=== PATIENT | female | born 1960 | race African-American/Black ===

== ENCOUNTER 2018-12-17 10:46 | Inpatient (IN) | payer OTHER ==
--- NOTE | 2018-12-17 11:17 | PDOC ---
History of Present Illness - General Chief Complaint: Edema Stated Complaint: EDEMA Time Seen by Provider: 12/17/18 11:17 History Source: Patient Exam Limitations: Other (poor historian, accompanied by aid who gives better history) - History of Present Illness Initial Comments: Pt is a 58 yo F, with PMH of HTN, chronic arthritis, and CVA (2017, 2018), who is presenting from imaging at [facility] with complaints of b/l LE edema x3 weeks. Pt was sent for b/l LE doppler and lab work by her Dryland Farmer today to the clinic at [facility]; her insurance was not accepted so she was sent to the ER for work-up. The pt states the LE swelling was gradual over the past 3 weeks. She has also had intermittent productive cough of yellowish sputum over the past month. The pt has no current complaints. She denies any recent travel, surgery, and estrogen use. Pt denies any fevers/chills, headache, vision changes, syncope , chest pain, palpitations, SOB, nausea/vomiting, abdominal pain, urinary symptoms, or diarrhea/constipation. Social: Pt smokes 1/2 ppd x40 years. Denies any alcohol or drug use. Pt denies any recent travel or sick contacts. Surgical: no relevant history. Family: no relevant history. 12/17/18 12:38 Past History - Travel Traveled outside of the country in the last 30 days: No Close contact w/someone who was outside of country & ill: No - Past Medical History Allergies/Adverse Reactions: Allergies Allergy/AdvReac Type Severity Reaction Status Date / Time No Known Allergies Allergy Verified 12/17/18 10:54 Home Medications: Ambulatory Orders Amlodipine Besylate 5 mg PO DAILY 12/17/18 Calcium Carbonate/Vitamin D3 [Oyster Shell 500-Vit D3 200 Tb] 1 each PO DAILY Ferrous Sulfate 325 mg PO DAILY 12/17/18 Lisinopril 20 mg PO DAILY 12/17/18 Meloxicam 15 mg PO DAILY 12/17/18 Phenytoin Sodium Extended 200 mg PO BID 12/17/18 COPD: No HTN: Yes Seizures: Yes - Suicide/Smoking/Psychosocial Hx Smoking History: Current every day smoker Number of Cigarettes Smoked Daily: 10 Information on smoking cessation initiated: No Hx Alcohol Use: No Drug/Substance Use Hx: No Review of Systems - Review of Systems Able to Perform ROS?: Yes Is the patient limited Prydeinig proficient: No Constitutional: Yes: Weight Stable. No: Chills, Diaphoresis, Fever, Loss of Appetite, Malaise, Weakness HEENTM: No: Blurred Vision, Double Vision, Nose Congestion, Throat Pain, Throat Swelling, Difficulty Swallowing Respiratory: Yes: Cough, Productive cough. No: Orthopnea, Shortness of Breath, Wheezing, Hemoptysis Cardiac (ROS): Yes: Edema (b/l LE edema). No: Chest Pain, Irregular Heart Rate , Lightheadedness, Palpitations, Syncope, Chest Tightness ABD/GI: No: Constipated, Diarrhea, Nausea, Poor Appetite, Poor Fluid Intake, Vomiting : No: Burning, Dysuria, Pain, Urgency Musculoskeletal: Yes: Muscle Pain (pain in legs b/l with swelling). No: Back Pain, Joint Pain, Muscle Weakness Integumentary: Yes: Change in Color (darkening of skin RLE with swelling). No: Bruising, Erythema, Rash Neurological: No: Headache, Numbness, Paresthesia, Weakness, Unsteady Gait, Dizziness Psychiatric: No: Sleep Pattern Change, Change in Appetite Endocrine: No: Increased Urine, Change in Weight Hematologic/Lymphatic: No: Anemia, Blood Clots, Easy Bleeding, Easy Bruising All Other Systems: Reviewed and Negative *Physical Exam - Vital Signs Last Vital Signs Temp Pulse Resp BP Pulse Ox 98.0 F 94 H 20 197/135 H 100 12/17/18 10:49 12/17/18 10:49 12/17/18 10:49 12/17/18 10:49 12/17/18 10:49 - Physical Exam Comments: HTN (197/135, pt did not take BP meds this AM), HR 94, 100% on RA, pt afebrile. Pt in NAD. Morbidly obese body habitus. Pt alert and oriented x3. canvas worker generally intact, muscular strength and sensation intact. No midline spinal tenderness, step-offs, or crepitus. Head normocephalic, atraumatic. Eyes PERRLA, EOMI. Oropharynx without erythema or exudates, no LAD b/l. No nasal congestion, hearing intact. Clear heart sounds, S1/S2, no JVD, or heart murmur. B/l LE edema R>L, with pitting edema (up to knee on the R, mid-soni on the L). Diminished lung sounds with crackles at the L base. No expiratory wheezing or accessory muscle use. No active respiratory distress. No abdominal or CVA tenderness to palpation, no rebound, no guarding. Abdomen soft, protuberant, and with normoactive bowel sounds. Hyperpigmentation on skin of RLE of feet and ankle. Skin without jaundice or rash. 12/17/18 12:13 ED Treatment Course - LABORATORY CBC & Chemistry Diagram: 12/17/18 11:43 12/17/18 11:43 Medical Decision Making - Medical Decision Making Pt was seen at bedside, also will be seen by attending Dr. Jiménez. Pt presenting from imaging at [facility] with complaints of b/l LE edema x3 weeks. Pt was sent for b /l LE doppler and lab work by her Dryland Farmer today to the clinic at [facility]; her insurance was not accepted so she was sent to the ER for work-up. The pt states the LE swelling was gradual over the past 3 weeks. She has also had intermittent productive cough of yellowish sputum over the past month. The pt has no current complaints. She denies any recent travel, surgery, and estrogen use. Pt denies any fevers/chills, headache, vision changes, syncope, chest pain , palpitations, SOB, nausea/vomiting, abdominal pain, urinary symptoms, or diarrhea/constipation. Considering CHF/new HF vs ACS vs b/l dependent edema vs DVT vs renal impairment with fluid retention. Ordered work-up including CBC, CMP, BNP, cardiac profile, ECG, chest x-ray. Will continue to reassess pt and monitor for symptomatic improvement. 12/17/18 12:26 ECG: NSR, intervals WNL (HR 95, DC 146, QRS 78, QTc 472). No TWIs or significant ST segment changes. No prior ECG for comparison. 12/17/18 12:39 CT head: IMPRESSION: Pald-ih-yfeqeokx volume loss, ventricular dilatation and probable periventricular chronic microvascular ischemic disease changes. No CT evidence of gross acute intracranial pathology is identified. Correlate clinically to determine further evaluation and follow-up. 12/17/18 15:16 Chest x-ray with no acute pathology. CBC: WBC 13 with chronic anemia CMP: BUN 40/Cr 4.9 Trop .02, BNP 6842 No prior chemistry/kidney function tests for comparison. 12/17/18 15:16 Spoke with US department as we cannot see the report of b/l LE doppler on the EMR: no evidence of DVT. 12/17/18 15:20 Paging pts PCP (ANP Janice Davis - [phone]) to discuss pts baseline labs. Appears that swelling may be due to chronic issues like renal impairment. Will need to determine baseline labs and any acute pathology present. 12/17/18 15:24 Lisinopril 10 mg not effective, will try 10 IV labetalol. Spoke with Dr. Davis, who states pt last Cr in August 2018 was 1.04 with GFR 60 ; pt has also gained ~40 lbs over the past few months. Pt refused to get labs/ echo done outpatient with cardiology. Blog sent to hospitalist team for admission. 12/17/18 16:05 ECG: HR 91, DC 148, QRS 78, QTc 482, NSR. No prior ECG for comparison. No significant ST segment/TWIs. Pt admitted to hospitalist team. BP improved systolic to 170 after labetalol. Spoke with Dr. Jordan (nephrology) -- requested US (renal) and urine creatinine. Orders placed. 12/17/18 17:00 *DC/Admit/Observation/Transfer Diagnosis at time of Disposition: Hypertensive emergency, Lower extremity edema Renal failure Qualifiers: Renal failure chronicity: unspecified chronicity Qualified Code(s): N19 - Unspecified kidney failure - Discharge Dispostion Condition at time of disposition: Stable Decision to Admit order: Yes - Referrals Referrals: Janice Davis, [facility] [Primary Care Provider] - - Patient Instructions - Post Discharge Activity Addendum entered and electronically signed by Mechelle Landin, RESIDENT 18:37: Progress Note - Progress Note Progress Note: Spoke with Dr. Lehman (cardiology) who agreed with plan to reduce BP, and provide labetolol or labetolol drip if necessary. He will see the pt in the AM or potentially tonight if he is in the hospital. Dr. Jordan saw the pt at bedside and was concerned about potential LE cellulitis on the R leg due to increased swelling/warmth. I notified admitting team to consider abx if indicated. RLE does feel more edematous than when she arrived on presentation, but pt has tenderness on both legs as indicated on prior PE.
--- NOTE | 2018-12-17 11:23 | PDOC ---
Attending Attestation - Resident Resident Name: Mechelle Landin - ED Attending Attestation I have performed the following: I have examined & evaluated the patient, The case was reviewed & discussed with the resident, I agree w/resident's findings & plan - HPI HPI: 12/17/18 12:54 58 yo F, with PMH of HTN, chronic arthritis, and CVA (2017, 2018), who is presenting from imaging at [facility] with complaints of b/l LE edema x 1 month, difficulty ambulating 2/2 pain and neuropathy. Pt was sent for b/l LE doppler and lab work by her Newspaper Writer today to the clinic at [facility]; her insurance was not accepted so she was sent to the ER for work-up. She has also had intermittent productive cough of yellowish sputum over the past month. The pt has no current complaints. She denies any recent travel, surgery, and estrogen use. Pt denies any fevers/chills, headache, vision changes , syncope, chest pain, palpitations, SOB, nausea/vomiting, abdominal pain, urinary symptoms, or diarrhea/constipation. Of note, there was a recent fall ~2 days ago, while pulling up her pants in the bathroom - lost her balance, landed on the tile floor hitting right side of head , did not want to be evaluated at that time. No LOC. No history of CHF or cardiac issues or diuretic use Poor compliance with meds, did not take AM meds as scheduled. - Physicial Exam PE: 12/17/18 12:57 Agree with the resident's HPI and PE as documented in the electronic medical record. NAD, well appearing, speech clear, oriented appropriately. PERRL, EOMI, nl conjunctiva, anicteric; neck supple, no midline tenderness in C spine.. lungs clear, RRR, no murmur. abdomen soft nontender, obese. back nontender, no midline tenderness, FROM. ASH x4, no focal neuro deficits. 4+ bilateral peripheral edema. normal color for ethnicity, WWP. +diffusely tender in BLE. - Medical Decision Making 12/17/18 11:22 See HPI for details Vital signs reviewed, hypertensive; poorly compliant with meds/regimen Prior notes reviewed, including admissions, discharges and consultations. laboratory results and imaging reviewed, basic labs and lytes wnl, notable for unchanged/stable anemia, leukocytosis - checked labs from 2014. no fever or systemic sx. doubt infectious. Cr elevated 4.9, no prior, no known prior disease; no lasix use. CXR_no acute chest pathology Cardiac panel_neg trop EKG normal sinus rhythm at 95 bpm, no interval abnormalities, narrow QRS, ST and T wave segments and morphology normal. Nonspecific T wave abnormalities in III only, no contiguous lead changes CT head neg for bleed or injury, chronic microvascular changes ED course - analgesia with tylenol. - lisinopril x1 dose; hold amlodipine due to peripheral edema - no lasix, due to profound renal insufficiency - bnp elevated, no cp or sob; likely from new renal insufficiency, no prior and pt denies known renal disease. peripheral edema likely from renal failure ordered for urine lytes/osms. - treating as HTN emergency, severely elevated BP and e/o organ damage (renal failure). IV labetalol 10mg x1, reassess. gradual decrease 25% in 24 hr. admit, peripheral edema, 2/2 HTN emergency, renal insufficiency workup 12/17/18 15:38 12/17/18 16:20 12/18/18 07:51
[2018-12-17 12:48] LABS: BASO % 1.3 % (0-2.0); EOS % 5.4 % (0-4.5); HEMOGLOBIN 9.4 GM/dL (10.7-15.3); LYMPH % 17.2 % (8-40); MCH 27.2 pg (25.7-33.7); MCHC 32.5 g/dl (32.0-36.0); MEAN CELL VOLUME 83.6 fl (80-96); MEAN PLT VOLUME 7.1 fl (7.5-11.1); MONO % 4.6 % (3.8-10.2); NEUT % 71.5 % (42.8-82.8); PLATELET COUNT 202 K/MM3 (134-434); RBC 3.47 M/mm3 (3.60-5.2); RDW 17.3 % (11.6-15.6); WHITE BLOOD COUNT 13.1 K/mm3 (4.0-10.0)
[2018-12-17] MEDS ORDERED: LISINOPRIL 10 MG TABLET (FP) PO ONE (12:51)
[2018-12-17] MEDS ORDERED: ACETAMINOPHEN 325 MG TABLET (FP) PO ONE (12:53)
[2018-12-17 12:59] LABS: INR 0.84 (0.83-1.09); PROTHROMBIN TIME (PATIENT) 9.9 SEC (9.7-13.0)
[2018-12-17] MEDS ORDERED: LISINOPRIL 5 MG TABLET (FP) ONE (13:18)
[2018-12-17] MEDS ORDERED: ACETAMINOPHEN 325 MG TABLET (FP) ONE (13:18)
[2018-12-17 13:21] LABS: ALBUMIN 1.6 g/dl (3.4-5.0); ALK PHOS 201 U/L (45-117); ANION GAP 10 MMOL/L (8-16); BILIRUBIN,TOTAL 0.1 mg/dL (0.2-1); BLOOD UREA NITROGEN 40 mg/dL (7-18); CALCIUM 7.5 mg/dL (8.5-10.1); CHLORIDE 114 mmol/L (98-107); CHOLESTEROL 197 mg/dL (50-200); CO2 19 mmol/L (21-32); CREATININE 4.9 mg/dL (0.55-1.3); GLUCOSE,RANDOM 81 mg/dL (74-106); HDL CHOLESTEROL 67 mg/dL (40-60); MAGNESIUM 1.8 mg/dL (1.8-2.4); N-TERMINAL BNP 6842.6 pg/ml (5-125); SGOT/AST 38 U/L (15-37); SGPT/ALT 18 U/L (13-61); SODIUM 143 mmol/L (136-145); TOT PROT 5.1 g/dl (6.4-8.2); TRIGLYCERIDES 202 mg/dL (0-150)
[2018-12-17 16:13] LABS: EPI CELLS 8.1 /HPF (0-5/HPF); URINE APPEARANCE CLOUDY; URINE BACTERIA 352.6 /hpf (NEGATIVE); URINE BILIRUBIN NEGATIVE (NEGATIVE); URINE CASTS 20 /lpf (0-8); URINE COLOR YELLOW; URINE GLUCOSE (UA) NEGATIVE (NEGATIVE); URINE KETONE NEGATIVE (NEGATIVE); URINE LEUK ESTERASE NEGATIVE (NEGATIVE); URINE NITRITE NEGATIVE (NEGATIVE); URINE PROTEIN 4+ (NEGATIVE); URINE UROBILINOGEN 0.2 mg/dL (0.2-1.0)
[2018-12-17] MEDS ORDERED: LABETALOL HCL 5 MG/1 ML (100MG/20 ML VIAL) IVPUSH ONE (16:17)
[2018-12-17] MEDS ORDERED: LABETALOL HCL 5 MG/1 ML (200MG/40ML VIAL) IVPB ONE (16:30)
--- NOTE | 2018-12-17 16:31 | HP ---
Admitting History and Physical - Admission Chief Complaint: LE edema, Rapid weight gain History of Present Illness: 58 year old F with h/o HTN, DVT, CVA x2 w/ subsequent seizure disorder ( maintained on Dilantin) presents from radiology department for evaluation after her health insurance was not accepted for scheduled b/l LE ultrasound. Ms. Adler reports cva in 2017 and 2018 treated at [facility] ([address] [place] [address]) and was subsequently discharged to [facility], where she resided for two years. In December 2017, pt was d/frannie from [facility] after which she went to live with her daughter in [place]. Post CVA she has significantly decreased mobility and uses a rollator and cane as assistive devices. After discharge from [place], she did not have regular medical follow up until May 2018. In Early November 2018, pt began to notice LE edema and difficulty climbing stairs to enter her first floor apartment in private home. Additional symptoms include intermittent headaches, cramping pain to LEs , forgetfulness and dark colored foul smelling urine. She denies CP/SOB/Dizziness/palpitations, dizziness or LOC. No dysuria/pelvic, back or flank pain. No fever/chills /N/V/D. No sick contacts or recent travel. Ms. Adler sustained a fall in her bathub on sunday, 12/15; where she hit her head and was unable to get up from bathtub. EMS and Fire brigade were activated and assisted patient out of bathtub. she refused to go She was referred by PCP for LE doppler studies at [facility] [place] radiology, however, due to her insurance not being accepted, she was referred to ED for evaluation. In ED: Vitals: T 98.0, HR 94, RR 20, BP 197/135, O2sat 100%. Pt had not taken BP meds and was dosed Lisinopril 10mg with no effect on lowering BP. Late afternoon, Labetalol 10mg IVP given which lowered SBP to 170s. Chest x-ray with no acute pathology. EKG: @ 17:01 (my read) VR 91bpm, BRENNAN 148ms, QRS 78, QT/QTc 392/482ms, no acute pathology. borderline LVH CBC: WBC 13 CMP: BUN 40/Cr 4.9. ED Provider spoke with pt's outpt PCP who states that in August 2018 serum Cr was 1.04 with GFR 60; pt has also gained ~40 lbs over the past few months. Trop 0.02, BNP 6842 CT head: Yivw-ax-avnbxaec volume loss, ventricular dilatation and probable periventricular chronic microvascular ischemic disease changes. No CT evidence of gross acute intracranial pathology is identified. Decision made to admit patient for further workup and management of hypertensive urgency and acute renal failure. History Source: Patient Limitations to Obtaining History: No Limitations - Past Medical History INSOLE TAPER: Yes: Peripheral Neuropathy Cardiovascular: Yes: HTN Reproductive: Yes: Postmenopausal ...: No ...: 2 ...Para: 2 Heme/Onc: Yes: Anemia - Past Surgical History Additional Past Surgical History: right carpal tunnel release tonsillectomy as a child - Smoking History Smoking history: Current every day smoker Have you smoked in the past 12 months: Yes Aproximately how many cigarettes per day: 10 (1/2 PPD x 40yrs) - Alcohol/Substance Use Hx Alcohol Use: No History of Substance Use: reports: None - Social History Usual Living Arrangement: Yes: With Child (and grandson) ADL: Support Services ([facility] 9A -2p x 7days per week) 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 History of Recent Travel: No Home Medications - Allergies Allergies/Adverse Reactions: Allergies Allergy/AdvReac Type Severity Reaction Status Date / Time No Known Allergies Allergy Verified 12/17/18 10:54 - Home Medications Home Medications: Ambulatory Orders Amlodipine Besylate 5 mg PO DAILY 12/17/18 Calcium Carbonate [Oysco-500] 500 mg PO DAILY 12/17/18 Calcium Carbonate/Vitamin D3 [Oyster Shell 500-Vit D3 200 Tb] 1 each PO DAILY Ferrous Sulfate 325 mg PO DAILY 12/17/18 Gabapentin 300 mg PO TID 12/17/18 Lisinopril 20 mg PO DAILY 12/17/18 Meloxicam 15 mg PO DAILY 12/17/18 Phenytoin Sodium Extended 200 mg PO BID 12/17/18 Family Disease History - Family Disease History Family Disease History: Other: Father ( (60+) CVA, h/p amputation), Mother ( (60+) HTN), Brother ( (23) drug overdose) Review of Systems - Review of Systems Constitutional: reports: No Symptoms Eyes: reports: Blurred Vision HENT: reports: No Symptoms Neck: reports: No Symptoms Cardiovascular: reports: Edema Respiratory: reports: No Symptoms Gastrointestinal: reports: No Symptoms Genitourinary: reports: No Symptoms Breasts: reports: No Symptoms Reported Musculoskeletal: reports: Muscle Cramps, Muscle Weakness Integumentary: reports: No Symptoms Neurological: reports: Headache, Unsteady Gait Endocrine: reports: No Symptoms Hematology/Lymphatic: reports: No Symptoms Psychiatric: reports: No Symptoms Physical Examination Vital Signs: Vital Signs Temperature 98.0 F 12/17/18 10:49 Pulse Rate 96 H 12/17/18 12:50 Respiratory Rate 20 12/17/18 12:50 Blood Pressure 198/130 H 12/17/18 12:50 O2 Sat by Pulse Oximetry (%) 98 12/17/18 12:50 Constitutional: Yes: Well Nourished, No Distress, Calm Eyes: Yes: Conjunctiva Clear, EOM Intact, PERRL HENT: Yes: Atraumatic, Normocephalic, Other (poor dentition) Neck: Yes: Supple, Trachea Midline Cardiovascular: Yes: Regular Rate and Rhythm, S1, S2 Respiratory: Yes: Regular, CTA Bilaterally Gastrointestinal: Yes: Normal Bowel Sounds, Soft, Abdomen, Obese ...Rectal Exam: Yes: Deferred Edema: Yes Edema: LLE: 3+ (pitting), RLE: 3+ (pitting) Peripheral Pulses WNL: Yes Peripheral Pulses: Left Radial: 2+, Right Radial: 2+, Left Doralis Pedis: 1+, Right Dorsalis Pedis: 1+ Integumentary: Yes: Venous Stasis Changes Neurological: Yes: Alert, Oriented, Tremors (Left UE > RUE) ...Motor Strength: WNL Psychiatric: Yes: Alert, Oriented Labs: CBC, BMP 12/17/18 11:43 12/17/18 11:43 Imaging - Results Chest X-ray: Report Reviewed (CXR 12/17/2018 Impression: No acute chest pathology.) X-ray: Report Reviewed (Impression: No acute chest pathology. Reported By: Estuardo Goff MD 12/17/18 [id number]) Cat Scan: Report Reviewed (IMPRESSION: Dwet-it-brwyhack volume loss, ventricular dilatation and probable periventricular chronic microvascular ischemic disease changes. No CT evidence of gross acute intracranial pathology is identified. Correlate clinically to determine further evaluation and follow- up. Reported By: Kat Frances MD 12/17/18 2209) Ultrasound: Report Reviewed (IMPRESSION: No evidence of deep venous thrombosis. Limited study as described above. Reported By: Everardo Lindquist MD 12/17/18 2349) Problem List - Problems (1) Prophylactic measure Assessment/Plan: heparin SC TID Bleeding precautions bowel regimen with senna and colace protonix 40mg daily Code(s): Z29.9 - ENCOUNTER FOR PROPHYLACTIC MEASURES, UNSPECIFIED (2) Body mass index (BMI) of 40.1 to 44.9 in adult Assessment/Plan: fasting lipids and A1C in the morning weight loss encouraged Code(s): Z68.41 - BODY MASS INDEX (BMI) 40.0-44.9, ADULT (3) Seizure disorder Assessment/Plan: seizure precautions dilantin 200mg BID Code(s): G40.909 - EPILEPSY, UNSP, NOT INTRACTABLE, WITHOUT STATUS EPILEPTICUS (4) Hypertensive emergency Assessment/Plan: hold norvasc due to LE edema hold Lisinopril in light of SOHAIL start labetalol 100mg BID telemetry cardiology consult Echo ordered Code(s): I16.1 - HYPERTENSIVE EMERGENCY (5) Lower extremity edema Assessment/Plan: elevate extremities Code(s): R60.0 - LOCALIZED EDEMA (6) Renal failure Assessment/Plan: place owen for intake and output renal consulted as per renal hold off on lasix and perform renal sono urine electrolytes and osmo sent to lab trend serum cr and electrolytes Code(s): N19 - UNSPECIFIED KIDNEY FAILURE Qualifiers: Renal failure chronicity: unspecified chronicity Qualified Code(s): N19 - Unspecified kidney failure (7) Cellulitis of right lower extremity Assessment/Plan: ZOSYN BID trend WBC and temp curve Code(s): L03.115 - CELLULITIS OF RIGHT LOWER LIMB (8) Anemia Assessment/Plan: may be related to CKD iron studies with AM labs trend H/H Code(s): D64.9 - ANEMIA, UNSPECIFIED Assessment/Plan Code Status: Full code Visit type - Emergency Visit Emergency Visit: Yes ED Registration Date: 12/17/18 Care time: The patient presented to the Emergency Department on the above date and was hospitalized for further evaluation of their emergent condition. - New Patient This patient is new to me today: Yes Date on this admission: 12/17/18 - Critical Care Critical Care patient: No
[2018-12-17] MEDS ORDERED: FUROSEMIDE 40 MG/4 ML INJECTABLE VIAL IVPUSH ONE (18:06)
--- NOTE | 2018-12-17 18:33 | CONSULT ---
Consult Consult Specialty:: Nephrology Reason for Consultation:: SOHAIL - History of Present Illness Chief Complaint: lower ext edema and right foot pain History of Present Illness: Pt is a 58 year old female with pmhx of htn, arthritis, CVA, and obesity who initially presented for lower ext dopplers. Her insurance was not accepted so was sent down to the ER for the studies. She says that her lower ext edema started about one month ago. She denies shortness of breath. She denies hematuria or dysuria. She denies nsaid use but her home meds includes meloxicam. She is a poor historian. She does complain of pain and erythema of her right leg. - History Source History Provided By: Patient, Medical Record - Past Medical History Cardio/Vascular: Yes: HTN Heme/Onc: Yes: Anemia Musculoskeletal: Yes: Osteoarthritis - Alcohol/Substance Use Hx Alcohol Use: No - Smoking History Smoking history: Current every day smoker Aproximately how many cigarettes per day: 10 Home Medications - Allergies Allergies/Adverse Reactions: Allergies Allergy/AdvReac Type Severity Reaction Status Date / Time No Known Allergies Allergy Verified 12/17/18 10:54 - Home Medications Home Medications: Ambulatory Orders Amlodipine Besylate 5 mg PO DAILY 12/17/18 Calcium Carbonate/Vitamin D3 [Oyster Shell 500-Vit D3 200 Tb] 1 each PO DAILY Ferrous Sulfate 325 mg PO DAILY 12/17/18 Lisinopril 20 mg PO DAILY 12/17/18 Meloxicam 15 mg PO DAILY 12/17/18 Phenytoin Sodium Extended 200 mg PO BID 12/17/18 Family Disease History - Family Disease History Family History: Denies Review of Systems - Review of Systems Constitutional: reports: No Symptoms Eyes: reports: No Symptoms HENT: reports: No Symptoms Neck: reports: No Symptoms Cardiovascular: reports: No Symptoms Respiratory: reports: No Symptoms Gastrointestinal: reports: No Symptoms Genitourinary: reports: No Symptoms Breasts: reports: No Symptoms Reported Musculoskeletal: reports: Other (right leg pain) Neurological: reports: No Symptoms Endocrine: reports: No Symptoms Hematology/Lymphatic: reports: No Symptoms Physical Exam Vital Signs: Vital Signs Temperature 98.0 F 12/17/18 10:49 Pulse Rate 92 H 12/17/18 17:13 Respiratory Rate 20 12/17/18 17:13 Blood Pressure 172/114 H 12/17/18 17:13 O2 Sat by Pulse Oximetry (%) 98 12/17/18 17:13 Constitutional: Yes: Anxious Eyes: Yes: Conjunctiva Clear HENT: Yes: Atraumatic Cardiovascular: Yes: S1, S2 Respiratory: Yes: CTA Bilaterally Gastrointestinal: Yes: Soft, Abdomen, Obese Renal/: Yes: WNL Musculoskeletal: Yes: WNL Edema: Yes Edema: LLE: 1+, RLE: 1+ Integumentary: Yes: Erythema, Other (right leg and foot erythema) Neurological: Yes: Oriented Psychiatric: Yes: Oriented, Agitated Labs: CBC, BMP 12/17/18 11:43 12/17/18 11:43 Laboratory Tests 12/17/18 12/17/18 11:43 11:43 WBC 13.1 H Hgb 9.4 L Plt Count 202 D Sodium 143 Potassium 4.0 Carbon Dioxide 19 L BUN 40 H Creatinine 4.9 H Imaging - Results Chest X-ray: Report Reviewed Assessment/Plan Current Medications Generic Name Dose Route Start Last Admin Trade Name Freq PRN Reason Stop Dose Admin Aspirin 81 mg 12/18/18 10:00 Ecotrin - PO DAILY ELIJAH Docusate Sodium 100 mg 12/17/18 22:00 Colace - PO BID ELIJAH Furosemide 40 mg 12/18/18 10:00 Lasix Injection - IVPUSH DAILY ELIJAH Heparin Sodium (Porcine) 5,000 unit 12/17/18 22:00 Heparin - SQ TID ELIJAH Labetalol HCl 100 mg 12/17/18 22:00 Normodyne - PO BID ELIJAH Pantoprazole Sodium 40 mg 12/18/18 10:00 Protonix - PO DAILY ELIJAH Phenytoin Sodium 200 mg 12/17/18 22:00 Dilantin - PO BID ELIJAH Senna 2 tab 12/17/18 22:00 Senna - PO HS ELIJAH Impression 1. SOHAIL 2. lower ext edema 3. cellulitis 4. HTN 5. arthritis Plan - check renal ultrasound - send ua and lytes - stop meloxicam - hold off lasix for now - abx for cellulitis - will order renal workup - pt is not very cooperative
[2018-12-17 18:39] LABS: URINE RBC 50 /hpf (0-4); URINE WBC 8 /hpf (0-5)
[2018-12-17] MEDS ORDERED: FUROSEMIDE 40 MG/4 ML INJECTABLE VIAL ONE (18:48)
[2018-12-17 20:20] LABS: OSMOLALITY,SERUM 308 mosm/kg (278-305)
[2018-12-17] MEDS ORDERED: LABETALOL HCL 100 MG TABLET (FP) PO ONE (21:32)
[2018-12-17] MEDS ORDERED: PIPERACILLIN/TAZOB 3.375 GM 3.375 GM in DEXTROSE 5%-WATER - 50 ML IVPB ONE (22:00)
[2018-12-17] MEDS ORDERED: PIPERACILLIN/TAZOB 3.375 GM 3.375 GM in DEXTROSE 5%-WATER - 50 ML IVPB SCH (22:00)
[2018-12-17] MEDS ORDERED: LABETALOL HCL 100 MG TABLET (FP) PO SCH (22:00)
[2018-12-17] MEDS ORDERED: LABETALOL HCL 100 MG TABLET (FP) ONE (23:14)
[2018-12-17] MEDS ORDERED: PHENYTOIN NA EXTENDED 100 MG CAPSULE (FP) ONE (23:14)
[2018-12-17] MEDS ORDERED: PIPERACILLIN/TAZOB 3.375 GM 3.375 GM/50 ML BAG IVPB ONE (23:15)
[2018-12-17] MEDS ORDERED: DOCUSATE SODIUM 100 MG CAPSULE (FP) PO ONE (23:15)
[2018-12-17] MEDS ORDERED: HEPARIN NA (PORCINE) 5,000 UNITS/ML 1ML VIAL ONE (23:15)
[2018-12-17] MEDS: DOCUSATE SODIUM 100 MG CAPSULE (FP) PO SCH (23:16)
[2018-12-17] MEDS: PHENYTOIN NA EXTENDED 100 MG CAPSULE (FP) PO SCH (23:16)
[2018-12-17] MEDS: HEPARIN NA (PORCINE) 5,000 UNITS/ML 1ML VIAL SQ SCH (23:25)
[2018-12-17] MEDS: SENNOSIDES 8.6MG TABLET (FP) PO SCH (23:27)
--- NOTE | 2018-12-18 04:37 | CON.CARD ---
Consult Consult Specialty:: cardiology Reason for Consultation:: uncontrolled HTN - History of Present Illness History of Present Illness: Pt is a 58 yr old woman with PMH of HTN, s/p CVA x 2 (2017 and 2018), morbid obesity, daily cigarette smoker, chronic arthritis, who is presenting from imaging at [facility] with complaints of b/l LE edema x 1 month, difficulty ambulating 2/2 pain and neuropathy. She has also had intermittent productive cough of yellowish sputum over the past month. The pt has no current complaints. She denies any recent travel, surgery, and estrogen use. Pt denies any fevers/chills, headache, vision changes , syncope, chest pain, palpitations, SOB, nausea/vomiting, abdominal pain, urinary symptoms, or diarrhea/constipation. s/p fall about 48 hours ago while pulling up her pants in the bathroom; pt lost her balance, landed on the tile floor, hitting right side of head, but did not want to be evaluated at that time. No LOC. No reported hx of cardiac disease (though sent by tax adjuster for labs and bilateral LE US today). Hx poor compliance with medications; did not take morning meds today. Her BP was found to be extremely high, and BUN/Cr also elevated. She was started on labetolol. 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 History of Recent Travel: No Home Medications - Allergies Allergies/Adverse Reactions: Allergies Allergy/AdvReac Type Severity Reaction Status Date / Time No Known Allergies Allergy Verified 12/17/18 10:54 - Home Medications Home Medications: Ambulatory Orders Amlodipine Besylate 5 mg PO DAILY 12/17/18 Calcium Carbonate [Oysco-500] 500 mg PO DAILY 12/17/18 Calcium Carbonate/Vitamin D3 [Oyster Shell 500-Vit D3 200 Tb] 1 each PO DAILY Ferrous Sulfate 325 mg PO DAILY 12/17/18 Gabapentin 300 mg PO TID 12/17/18 Lisinopril 20 mg PO DAILY 12/17/18 Meloxicam 15 mg PO DAILY 12/17/18 Phenytoin Sodium Extended 200 mg PO BID 12/17/18 Family Disease History - Family Disease History Family Disease History: Other: Father ( (60+) CVA, h/p amputation), Mother ( (60+) HTN), Brother ( (23) drug overdose) Vital Signs: Vital Signs Temperature 97.7 F 12/18/18 04:00 Pulse Rate 89 12/18/18 04:00 Respiratory Rate 18 12/18/18 04:00 Blood Pressure 129/94 12/18/18 04:00 O2 Sat by Pulse Oximetry (%) 98 12/18/18 04:00 - Other Data Labs, Other Data: CBC, BMP 12/17/18 11:43 12/17/18 11:43 INR, PTT INR 0.84 (0.83-1.09) 12/17/18 11:43 Troponin, BNP 12/17/18 11:43 Troponin I < 0.02 B-Natriuretic Peptide 6842.6 H Troponin, BNP 12/17/18 11:43 Troponin I < 0.02 B-Natriuretic Peptide 6842.6 H Problem List - Problems (1) Anemia Assessment/Plan: Hb also noted to be reduced in 2013; f/u workup. Code(s): D64.9 - ANEMIA, UNSPECIFIED (2) Body mass index (BMI) of 40.1 to 44.9 in adult Assessment/Plan: dietary consult while hospitalized would be on benefit. Code(s): Z68.41 - BODY MASS INDEX (BMI) 40.0-44.9, ADULT (3) Hypertensive emergency Assessment/Plan: Received PO labetolol; f/u BP, HR serially. ECHO for LVEF, wall thickness and motion; valve status. BUN/Cr markedly elevated; f/u with straight edger. F/u prior cardiac workup. Code(s): I16.1 - HYPERTENSIVE EMERGENCY (4) Renal failure Assessment/Plan: BUN/Cr 40/4.9; no prior labs to compare with. for renal US. F/u with straight edger. Code(s): N19 - UNSPECIFIED KIDNEY FAILURE Qualifiers: Renal failure chronicity: unspecified chronicity Qualified Code(s): N19 - Unspecified kidney failure (5) Elevated brain natriuretic peptide (BNP) level Code(s): R79.89 - OTHER SPECIFIED ABNORMAL FINDINGS OF BLOOD CHEMISTRY (6) [place] cardiac risk >20% in next 10 years Assessment/Plan: Will require coronary artery evaluation once BP is controlled, if not done recently (f/u prior cardiac w/u);depending on clinical course while here, may be able to be done as outpatient. Code(s): Z91.89 - OTH PERSONAL RISK FACTORS, NOT ELSEWHERE CLASSIFIED (7) Cigarette nicotine dependence Code(s): F17.210 - NICOTINE DEPENDENCE, CIGARETTES, UNCOMPLICATED
[2018-12-18] MEDS: HEPARIN NA (PORCINE) 5,000 UNITS/ML 1ML VIAL SQ SCH ×3 (05:46→21:36)
[2018-12-18] MEDS ORDERED: LABETALOL HCL 5 MG/1 ML (100MG/20 ML VIAL) IVPUSH ONE (05:55)
--- NOTE | 2018-12-18 08:28 | PN ---
Progress Note, Physician Chief Complaint: admitted for fluid retention and uncontrolled BP History of Present Illness: 24 HR EVENTS: -refuses AM labs -started on oral labetalol, BP not well controlled -Lost IV access, pt refuses to place new IV -started on Zosyn for RLE cellulitis, switched to Keflex d/t no IV access - Current Medication List Current Medications: Active Medications Aspirin (Ecotrin -) 81 mg PO DAILY [facility] Cephalexin HCl (Keflex -) 500 mg PO BID [facility] Docusate Sodium (Colace -) 100 mg PO BID [facility] Last Admin: 12/17/18 23:16 Dose: 100 mg Heparin Sodium (Porcine) (Heparin -) 5,000 unit SQ TID [facility] Last Admin: 12/18/18 05:46 Dose: Not Given Labetalol HCl (Normodyne -) 200 mg PO BID [facility] Pantoprazole Sodium (Protonix -) 40 mg PO DAILY [facility] Phenytoin Sodium (Dilantin -) 200 mg PO BID [facility] Last Admin: 12/17/18 23:16 Dose: 200 mg Senna (Senna -) 2 tab PO HS [facility] Last Admin: 12/17/18 23:27 Dose: 2 tab - Objective Vital Signs: Vital Signs Temperature 98.0 F 12/18/18 06:00 Pulse Rate 87 12/18/18 06:00 Respiratory Rate 20 12/18/18 06:00 Blood Pressure 177/120 H 12/18/18 06:00 O2 Sat by Pulse Oximetry (%) 98 12/18/18 04:00 Constitutional: Yes: No Distress, Calm Eyes: Yes: Conjunctiva Clear, EOM Intact HENT: Yes: Atraumatic, Normocephalic, Other (poor dentition) Neck: Yes: Supple, Trachea Midline Cardiovascular: Yes: Regular Rate and Rhythm Respiratory: Yes: Regular, CTA Bilaterally Gastrointestinal: Yes: WNL, Normal Bowel Sounds, Soft, Abdomen, Obese ...Rectal Exam: Yes: Deferred Genitourinary: Yes: WNL Breast(s): Yes: WNL Edema: Yes Edema: LUE: 2+, LLE: 3+, RLE: 3+ Peripheral Pulses: Left Radial: 2+, Right Radial: 2+, Left Doralis Pedis: 1+, Right Dorsalis Pedis: 1+ Integumentary: Yes: Venous Stasis Changes, Other (Melasma) Neurological: Yes: Alert, Oriented ...Motor Strength: WNL Psychiatric: Yes: Alert, Oriented Labs: CBC, BMP 12/17/18 11:43 12/17/18 11:43 INR, PTT INR 0.84 (0.83-1.09) 12/17/18 11:43 - ....Imaging Other: Report Reviewed (ECHO 12/18/2018 Impression: TEchnically difficult study with many images suboptimal in quality. LV not well visualized. LV systolic fxn grossly normal. REgional wall motion abnormalities cannot be excluded due to limited visualization. RV, RA, LA not well visualized. Trace mitral regurg.) Problem List - Problems (1) Prophylactic measure Assessment/Plan: heparin SC TID Bleeding precautions bowel regimen with senna and colace protonix 40mg daily Code(s): Z29.9 - ENCOUNTER FOR PROPHYLACTIC MEASURES, UNSPECIFIED (2) Body mass index (BMI) of 40.1 to 44.9 in adult Assessment/Plan: fasting lipids and A1C when able since pt refusing labs weight loss encouraged Code(s): Z68.41 - BODY MASS INDEX (BMI) 40.0-44.9, ADULT (3) Seizure disorder Assessment/Plan: seizure precautions dilantin 200mg BID Code(s): G40.909 - EPILEPSY, UNSP, NOT INTRACTABLE, WITHOUT STATUS EPILEPTICUS (4) Hypertensive emergency Assessment/Plan: Increase labetalol 200mg BID telemetry cardiology following, recommendations appreciated hold norvasc and lisinopril Code(s): I16.1 - HYPERTENSIVE EMERGENCY (5) Lower extremity edema Assessment/Plan: elevate extremities Keflex 500mg BID for RLE cellulitis LUE more swollen today-doppler study ordered to assess for DVT Code(s): R60.0 - LOCALIZED EDEMA (6) Renal failure Assessment/Plan: renal consulted Lasix 40mg x 1 dose today trend serum cr and electrolytes as pt allows labs to be drawn Code(s): N19 - UNSPECIFIED KIDNEY FAILURE Qualifiers: Renal failure chronicity: unspecified chronicity Qualified Code(s): N19 - Unspecified kidney failure (7) Cellulitis of right lower extremity Assessment/Plan: d/c Zosyn due to no IV access, start Keflex BID trend WBC and temp curve Code(s): L03.115 - CELLULITIS OF RIGHT LOWER LIMB (8) Anemia Assessment/Plan: may be related to CKD iron studies with AM labs trend H/H Code(s): D64.9 - ANEMIA, UNSPECIFIED (9) Cigarette nicotine dependence Assessment/Plan: pt noted to have a box of cigarettes on her bed. no smoking reinforced. Code(s): F17.210 - NICOTINE DEPENDENCE, CIGARETTES, UNCOMPLICATED Impression/Plan Impression/Plan: DISPO: pt is resistant to care and does not allow staff to perform necessary functions to improve her clinical status. Spoke with Mayo Adler who is daughter and HCP to encourage patient to be an active participant in her care. Visit type - Emergency Visit Emergency Visit: Yes ED Registration Date: 12/17/18 Care time: The patient presented to the Emergency Department on the above date and was hospitalized for further evaluation of their emergent condition. - New Patient This patient is new to me today: No - Critical Care Critical Care patient: No - Discharge Referral Referred to [facility] Med P.C.: No
[2018-12-18] MEDS: DOCUSATE SODIUM 100 MG CAPSULE (FP) PO SCH ×2 (09:58→21:11)
[2018-12-18] MEDS: ASPIRIN COATED 81 MG TABLET.EC PO SCH (09:58)
[2018-12-18] MEDS: LABETALOL HCL 200 MG TABLET (FP) PO SCH ×2 (09:58→21:12)
[2018-12-18] MEDS: CEPHALEXIN MONOHYDRATE 500 MG CAPSULE (UD) PO SCH ×2 (09:58→21:10)
[2018-12-18] MEDS: PHENYTOIN NA EXTENDED 100 MG CAPSULE (FP) PO SCH ×2 (09:58→21:10)
[2018-12-18] MEDS: PANTOPRAZOLE 40 MG TABLET (FP) PO SCH (09:58)
[2018-12-18] MEDS ORDERED: FUROSEMIDE 40 MG/4 ML INJECTABLE VIAL IVPUSH SCH (10:00)
--- NOTE | 2018-12-18 10:33 | EKG ---
Test Reason : Blood Pressure : / mmHG Vent. Rate : 091 BPM Atrial Rate : 091 BPM P-R Int : 148 ms QRS Dur : 078 ms QT Int : 392 ms P-R-T Axes : 033 012 024 degrees QTc Int : 482 ms NORMAL SINUS RHYTHM CANNOT RULE OUT ANTERIOR INFARCT , AGE UNDETERMINED ABNORMAL ECG WHEN COMPARED WITH ECG OF 17-DEC-2018 12:23, NO SIGNIFICANT CHANGE WAS FOUND Confirmed by THA PINEDA, CARRIE ([id number]) on 12/18/2018 10:33:08 AM Referred By: Confirmed By:CARRIE ALMAZAN MD
--- NOTE | 2018-12-18 10:33 | EKG ---
Test Reason : Blood Pressure : / mmHG Vent. Rate : 095 BPM Atrial Rate : 095 BPM P-R Int : 146 ms QRS Dur : 078 ms QT Int : 376 ms P-R-T Axes : 042 014 040 degrees QTc Int : 472 ms NORMAL SINUS RHYTHM NORMAL ECG NO PREVIOUS ECGS AVAILABLE Confirmed by THA PINEDA, CARRIE ([id number]) on 12/18/2018 10:33:04 AM Referred By: Confirmed By:CARRIE ALMAZAN MD
--- NOTE | 2018-12-18 10:42 | PN ---
Progress Note, Physician History of Present Illness: Pt is a 58 yr old woman with PMH of HTN, s/p CVA x 2 (2017 and 2018), morbid obesity, daily cigarette smoker, chronic arthritis, who is presenting from imaging at [facility] with complaints of b/l LE edema x 1 month, difficulty ambulating 2/2 pain and neuropathy. She has also had intermittent productive cough of yellowish sputum over the past month. The pt has no current complaints. She denies any recent travel, surgery, and estrogen use. Pt denies any fevers/chills, headache, vision changes , syncope, chest pain, palpitations, SOB, nausea/vomiting, abdominal pain, urinary symptoms, or diarrhea/constipation. s/p fall about 48 hours ago while pulling up her pants in the bathroom; pt lost her balance, landed on the tile floor, hitting right side of head, but did not want to be evaluated at that time. No LOC. No reported hx of cardiac disease (though sent by corner cutter machine operator for labs and bilateral LE US today). Hx poor compliance with medications; did not take morning meds today. Her BP was found to be extremely high, and BUN/Cr also elevated. She was started on labetolol. - Current Medication List Current Medications: Active Medications Aspirin (Ecotrin -) 81 mg PO DAILY [facility] Last Admin: 12/18/18 09:58 Dose: 81 mg Cephalexin HCl (Keflex -) 500 mg PO BID [facility] Last Admin: 12/18/18 09:58 Dose: 500 mg Docusate Sodium (Colace -) 100 mg PO BID [facility] Last Admin: 12/18/18 09:58 Dose: 100 mg Heparin Sodium (Porcine) (Heparin -) 5,000 unit SQ TID [facility] Last Admin: 12/18/18 05:46 Dose: Not Given Labetalol HCl (Normodyne -) 200 mg PO BID [facility] Last Admin: 12/18/18 09:58 Dose: 200 mg Pantoprazole Sodium (Protonix -) 40 mg PO DAILY [facility] Last Admin: 12/18/18 09:58 Dose: 40 mg Phenytoin Sodium (Dilantin -) 200 mg PO BID [facility] Last Admin: 12/18/18 09:58 Dose: 200 mg Senna (Senna -) 2 tab PO HS [facility] Last Admin: 12/17/18 23:27 Dose: 2 tab - Objective Vital Signs: Vital Signs Temperature 98.0 F 12/18/18 06:00 Pulse Rate 87 12/18/18 06:00 Respiratory Rate 20 12/18/18 06:00 Blood Pressure 177/120 H 12/18/18 06:00 O2 Sat by Pulse Oximetry (%) 98 12/18/18 04:00 Eyes: Yes: WNL, Conjunctiva Clear, EOM Intact HENT: Yes: WNL, Atraumatic, Normocephalic Neck: Yes: WNL, Supple, Trachea Midline Cardiovascular: Yes: WNL, Regular Rate and Rhythm Respiratory: Yes: WNL, Regular, CTA Bilaterally Gastrointestinal: Yes: WNL, Normal Bowel Sounds Genitourinary: Yes: WNL Musculoskeletal: Yes: WNL Extremities: Yes: WNL Edema: Yes Integumentary: Yes: WNL Neurological: Yes: WNL, Alert, Oriented ...Motor Strength: WNL Psychiatric: Yes: WNL Labs: CBC, BMP 12/17/18 11:43 12/17/18 11:43 INR, PTT INR 0.84 (0.83-1.09) 12/17/18 11:43 Assessment/Plan - Problems (1) Anemia Assessment/Plan: Hb also noted to be reduced in 2014; f/u workup. Code(s): D64.9 - ANEMIA, UNSPECIFIED (2) Body mass index (BMI) of 40.1 to 44.9 in adult Assessment/Plan: dietary consult while hospitalized would be on benefit. Code(s): Z68.41 - BODY MASS INDEX (BMI) 40.0-44.9, ADULT (3) Hypertensive emergency Assessment/Plan: Received PO labetolol; f/u BP, HR serially. ECHO for LVEF, wall thickness and motion; valve status. BUN/Cr markedly elevated; f/u with machine gun mechanic. F/u prior cardiac workup. Code(s): I16.1 - HYPERTENSIVE EMERGENCY (4) Renal failure Assessment/Plan: BUN/Cr 40/4.9; no prior labs to compare with. for renal US. F/u with machine gun mechanic. Code(s): N19 - UNSPECIFIED KIDNEY FAILURE Qualifiers: Renal failure chronicity: unspecified chronicity Qualified Code(s): N19 - Unspecified kidney failure (5) Elevated brain natriuretic peptide (BNP) level Code(s): R79.89 - OTHER SPECIFIED ABNORMAL FINDINGS OF BLOOD CHEMISTRY (6) [place] cardiac risk >20% in next 10 years Assessment/Plan: Will require coronary artery evaluation once BP is controlled, if not done recently (f/u prior cardiac w/u);depending on clinical course while here, may be able to be done as outpatient. Code(s): Z91.89 - OTH PERSONAL RISK FACTORS, NOT ELSEWHERE CLASSIFIED (7) Cigarette nicotine dependence Code(s): F17.210 - NICOTINE DEPENDENCE, CIGARETTES, UNCOMPLICATED
--- NOTE | 2018-12-18 12:13 | PN ---
Progress Note, Physician History of Present Illness: Pt seen and examined at bedside. She denies shortness of breath. Her IV fell out and she is refusing another one. She denies fevers or chills. - Current Medication List Current Medications: Active Medications Aspirin (Ecotrin -) 81 mg PO DAILY [facility] Last Admin: 12/18/18 09:58 Dose: 81 mg Cephalexin HCl (Keflex -) 500 mg PO BID [facility] Last Admin: 12/18/18 09:58 Dose: 500 mg Docusate Sodium (Colace -) 100 mg PO BID [facility] Last Admin: 12/18/18 09:58 Dose: 100 mg Heparin Sodium (Porcine) (Heparin -) 5,000 unit SQ TID [facility] Last Admin: 12/18/18 05:46 Dose: Not Given Labetalol HCl (Normodyne -) 200 mg PO BID [facility] Last Admin: 12/18/18 09:58 Dose: 200 mg Pantoprazole Sodium (Protonix -) 40 mg PO DAILY [facility] Last Admin: 12/18/18 09:58 Dose: 40 mg Phenytoin Sodium (Dilantin -) 200 mg PO BID [facility] Last Admin: 12/18/18 09:58 Dose: 200 mg Senna (Senna -) 2 tab PO HS [facility] Last Admin: 12/17/18 23:27 Dose: 2 tab - Objective Vital Signs: Vital Signs Temperature 98.7 F 12/18/18 10:00 Pulse Rate 98 H 12/18/18 10:00 Respiratory Rate 18 12/18/18 10:00 Blood Pressure 161/103 H 12/18/18 10:00 O2 Sat by Pulse Oximetry (%) 100 12/18/18 09:00 Constitutional: Yes: Anxious Eyes: Yes: Conjunctiva Clear HENT: Yes: Atraumatic Cardiovascular: Yes: S1, S2 Respiratory: Yes: CTA Bilaterally Gastrointestinal: Yes: Soft, Abdomen, Obese Genitourinary: Yes: WNL Musculoskeletal: Yes: WNL Edema: Yes Edema: LLE: 1+, RLE: 1+ Neurological: Yes: Oriented Psychiatric: Yes: Oriented, Agitated Labs: CBC, BMP 12/17/18 11:43 12/17/18 11:43 INR, PTT INR 0.84 (0.83-1.09) 12/17/18 11:43 - ....Imaging Ultrasound: Report Reviewed Problem List - Problems (1) Cellulitis of right lower extremity Code(s): L03.115 - CELLULITIS OF RIGHT LOWER LIMB (2) Renal failure Code(s): N19 - UNSPECIFIED KIDNEY FAILURE Qualifiers: Renal failure chronicity: unspecified chronicity Qualified Code(s): N19 - Unspecified kidney failure Assessment/Plan Current Medications Generic Name Dose Route Start Last Admin Trade Name Freq PRN Reason Stop Dose Admin Aspirin 81 mg 12/18/18 10:00 12/18/18 09:58 Ecotrin - PO 81 mg DAILY [facility] Administration Cephalexin HCl 500 mg 12/18/18 10:00 12/18/18 09:58 Keflex - PO 500 mg BID [facility] Administration Docusate Sodium 100 mg 12/17/18 22:00 12/18/18 09:58 Colace - PO 100 mg BID [facility] Administration Heparin Sodium (Porcine) 5,000 unit 12/17/18 22:00 12/18/18 05:46 Heparin - SQ Not Given TID [facility] Labetalol HCl 200 mg 12/18/18 09:15 12/18/18 09:58 Normodyne - PO 200 mg BID [facility] Administration Pantoprazole Sodium 40 mg 12/18/18 10:00 12/18/18 09:58 Protonix - PO 40 mg DAILY [facility] Administration Phenytoin Sodium 200 mg 12/17/18 22:00 12/18/18 09:58 Dilantin - PO 200 mg BID [facility] Administration Senna 2 tab 12/17/18 22:00 12/17/18 23:27 Senna - PO 2 tab HS [facility] Administration Impression 1. SOHAIL 2. lower ext edema 3. cellulitis 4. HTN 5. arthritis Plan - renal ultrasound reviewed - check bmp if she allows - renal workup ordered however she is refusing - abx for cellulitis - monitor bp on labetolol - cardio input appreciated - pt is not very cooperative
--- NOTE | 2018-12-18 13:43 | ECHO ---
Name: GONZALO ROBLES Exam:Adult Echocardiogram Study Date: 12/18/2018 10:00 AM Age: 58 yrs Reason For Study: volume overload Height: 65 in Weight: 250 lb BSA: 2.2 m2 MMode/2D Measurements & Calculations LAV (MOD-bp): 66.4 ml Doppler Measurements & Calculations MV E max baldemar: 90.2 cm/sec Ao V2 max: 142.5 cm/sec MV A max baldemar: 87.8 cm/sec Ao max P.1 mmHg MV E/A: 1.0 MV dec time: 0.11 sec LV V1 max P.9 mmHg TR max baldemar: 216.8 cm/sec LV V1 max: 140.7 cm/sec TR max P.9 mmHg PA V2 max: 109.9 cm/sec Med Peak E' Baldemar: 7.8 cm/sec PA max P.8 mmHg Med E/e': 11.5 Lat Peak E' Baldemar: 12.9 cm/sec Lat E/e': 7.0 Procedure The study was technically difficult with many images being suboptimal in quality. Left Ventricle The left ventricle is not well visualized. Left ventricular systolic function is grossly normal. Carolin onal wall motion abnormalities cannot be excluded due to limited visualization. Right Ventricle The right ventricle is not well visualized. Atria The left atrium is not well visualized. Right atrium not well visualized. Mitral Valve The mitral valve is not well visualized. There is no mitral valve stenosis. There is trace mitral regurgitation. Tricuspid Valve The tricuspid valve is not well visualized. There is no tricuspid stenosis. There was insufficient TR detected to calculate RV systolic pressure. Aortic Valve The aortic valve is not well visualized. No hemodynamically significant valvular aortic stenosis. No aortic regurgitation is present. Pulmonic Valve The pulmonic valve is not well visualized. Great Vessels The aortic root is not well visualized. Pericardium/Pleura There is no pericardial effusion. Interpretation Summary The study was technically difficult with many images being suboptimal in quality. The left ventricle is not well visualized. Left ventricular systolic function is grossly normal. Regional wall motion abnormalities cannot be excluded due to limited visualization. The right ventricle is not well visualized. Right atrium not well visualized. The left atrium is not well visualized. There is trace mitral regurgitation. There was insufficient TR detected to calculate RV systolic pressure. MD Jaylen Woods 12/18/2018 01:42 PM
[2018-12-18] MEDS: ACETAMINOPHEN 500 MG TABLET (FP) PO PRN ×2 (14:38→21:10)
[2018-12-18] MEDS: SENNOSIDES 8.6MG TABLET (FP) PO SCH (21:12)
[2018-12-19] MEDS: HEPARIN NA (PORCINE) 5,000 UNITS/ML 1ML VIAL SQ SCH ×3 (07:08→22:04)
--- NOTE | 2018-12-19 09:42 | PN ---
Progress Note, Physician Chief Complaint: Pt A&Ox3; denies chest pain or dyspnea;. History of Present Illness: Pt is a 58 yr old black woman with PMH of HTN, s/p CVA x 2 (2017 and 2018), morbid obesity, daily cigarette smoker, chronic arthritis, who is presenting from imaging at [facility] with complaints of b/l LE edema x 1 month, difficulty ambulating 2/2 pain and neuropathy. She has also had intermittent productive cough of yellowish sputum over the past month. The pt has no current complaints. She denies any recent travel, surgery, and estrogen use. Pt denies any fevers/chills, headache, vision changes , syncope, chest pain, palpitations, SOB, nausea/vomiting, abdominal pain, urinary symptoms, or diarrhea/constipation. s/p fall about 48 hours ago while pulling up her pants in the bathroom; pt lost her balance, landed on the tile floor, hitting right side of head, but did not want to be evaluated at that time. No LOC. No reported hx of cardiac disease (though sent by supervisor steel division for labs and bilateral LE US today). Hx poor compliance with medications; did not take morning meds today. Her BP was found to be extremely high, and BUN/Cr also elevated. She was started on labetolol. - Current Medication List Current Medications: Active Medications Acetaminophen (Tylenol -) 1,000 mg PO Q8H PRN PRN Reason: PAIN LEVEL 4 - 6 Last Admin: 12/18/18 21:10 Dose: 1,000 mg Aspirin (Ecotrin -) 81 mg PO DAILY [facility] Last Admin: 12/18/18 09:58 Dose: 81 mg Cephalexin HCl (Keflex -) 500 mg PO BID [facility] Last Admin: 12/18/18 21:10 Dose: 500 mg Docusate Sodium (Colace -) 100 mg PO BID [facility] Last Admin: 12/18/18 21:11 Dose: 100 mg Heparin Sodium (Porcine) (Heparin -) 5,000 unit SQ TID [facility] Last Admin: 12/19/18 07:08 Dose: Not Given Labetalol HCl (Normodyne -) 200 mg PO BID [facility] Last Admin: 12/18/18 21:12 Dose: 200 mg Pantoprazole Sodium (Protonix -) 40 mg PO DAILY [facility] Last Admin: 12/18/18 09:58 Dose: 40 mg Phenytoin Sodium (Dilantin -) 200 mg PO BID [facility] Last Admin: 12/18/18 21:10 Dose: 200 mg Senna (Senna -) 2 tab PO HS [facility] Last Admin: 12/18/18 21:12 Dose: 2 tab - Objective Vital Signs: Vital Signs Temperature 97.9 F 12/19/18 06:00 Pulse Rate 91 H 12/19/18 06:00 Respiratory Rate 20 12/19/18 06:00 Blood Pressure 137/96 12/19/18 06:00 O2 Sat by Pulse Oximetry (%) 96 12/18/18 21:00 Constitutional: Yes: Anxious, Obese Eyes: Yes: WNL HENT: Yes: WNL Labs: CBC, BMP 12/17/18 11:43 12/17/18 11:43 INR, PTT INR 0.84 (0.83-1.09) 12/17/18 11:43 Problem List - Problems (1) Anemia Assessment/Plan: Hb also noted to be reduced in 2014; f/u workup. Code(s): D64.9 - ANEMIA, UNSPECIFIED (2) Body mass index (BMI) of 40.1 to 44.9 in adult Assessment/Plan: dietary consult while hospitalized would be on benefit. Code(s): Z68.41 - BODY MASS INDEX (BMI) 40.0-44.9, ADULT (3) Hypertensive emergency Assessment/Plan: Now on labetolol 200 mg bid; increase as needed, and consider 2nd antihypertensive agent, e.g. amlodipine or hydralazine. ECHO :limited study; groswsly normal LVEF; regional wall motion could not be assessed. BUN/Cr remainsmarkedly elevated; f/u with home therapy clinician. F/u prior cardiac workup; pt is reluctant to undergo any further cardiac studies at this time, saying she has had no troubles with her heart. Code(s): I16.1 - HYPERTENSIVE EMERGENCY (4) Renal failure Code(s): N19 - UNSPECIFIED KIDNEY FAILURE Qualifiers: Renal failure chronicity: unspecified chronicity Qualified Code(s): N19 - Unspecified kidney failure (5) Elevated brain natriuretic peptide (BNP) level Code(s): R79.89 - OTHER SPECIFIED ABNORMAL FINDINGS OF BLOOD CHEMISTRY (6) [place] cardiac risk >20% in next 10 years Assessment/Plan: Will require coronary artery evaluation once BP is controlled, if not done recently (f/u prior cardiac w/u);depending on clinical course while here, may be able to be done as outpatient. Code(s): Z91.89 - OTH PERSONAL RISK FACTORS, NOT ELSEWHERE CLASSIFIED (7) Cigarette nicotine dependence Code(s): F17.210 - NICOTINE DEPENDENCE, CIGARETTES, UNCOMPLICATED
--- NOTE | 2018-12-19 10:35 | PN ---
Physical Exam: SUBJECTIVE: Patient seen and examined at the bedside. in no acute distress. refusing further blood draws at this time, as she is a difficult stick. encouraged her to allow us to re-draw blood, she will re consider. OBJECTIVE: Vital Signs Period Temp Pulse Resp BP Sys/Jones Pulse Ox Last 24 Hr 97.3 F-98.8 F 80-92 20-22 134-155/85-108 96 GENERAL: The patient is awake, alert, and fully oriented, in no acute distress. HEAD: Normal with no signs of trauma. EYES: PERRL, extraocular movements intact, sclera anicteric, conjunctiva clear. No ptosis. ENT: Ears normal, nares patent, oropharynx clear without exudates, moist mucous membranes. NECK: Trachea midline, full range of motion, supple. LUNGS: Breath sounds equal, clear to auscultation bilaterally, no wheezes HEART: Regular rate and rhythm ABDOMEN: obese abdomen EXTREMITIES lower ext non pitting edema, negative for dvt. NEUROLOGICAL: Normal speech, gait not observed. PSYCH: Normal mood, normal affect Active Medications Generic Name Dose Route Start Last Admin Trade Name Freq PRN Reason Stop Dose Admin Acetaminophen 1,000 mg 12/18/18 14:26 12/18/18 21:10 Tylenol - PO 1,000 mg Q8H PRN Administration PAIN LEVEL 4 - 6 Aspirin 81 mg 12/18/18 10:00 12/18/18 09:58 Ecotrin - PO 81 mg DAILY [facility] Administration Cephalexin HCl 500 mg 12/18/18 10:00 12/18/18 21:10 Keflex - PO 500 mg BID [facility] Administration Docusate Sodium 100 mg 12/17/18 22:00 12/18/18 21:11 Colace - PO 100 mg BID [facility] Administration Heparin Sodium (Porcine) 5,000 unit 12/17/18 22:00 12/19/18 07:08 Heparin - SQ Not Given TID ELIJAH Labetalol HCl 200 mg 12/18/18 09:15 12/18/18 21:12 Normodyne - PO 200 mg BID [facility] Administration Pantoprazole Sodium 40 mg 12/18/18 10:00 12/18/18 09:58 Protonix - PO 40 mg DAILY [facility] Administration Phenytoin Sodium 200 mg 12/17/18 22:00 12/18/18 21:10 Dilantin - PO 200 mg BID [facility] Administration Senna 2 tab 12/17/18 22:00 12/18/18 21:12 Senna - PO 2 tab HS [facility] Administration ASSESSMENT/PLAN: Patient is a 58 year old female with a past medical history of morbid obesity, hypertension, anemia, current daily smoker, DVT, CVA x2 w/ subsequent seizure disorder (maintained on Dilantin) presents from radiology department for evaluation after her health insurance was not accepted for scheduled b/l LE ultrasound. Ms. Adler sustained a fall in her bathub on Sunday, 12/15; where she hit her head and was unable to get up from bathtub. EMS and Fire were activated and assisted patient out of bathtub. She was referred by PCP for LE doppler studies at [facility] radiology, however, due to her insurance not being accepted, she was referred to ED for evaluation. Vascular: lower ext edema. Cellulitis of right lower ext. On Keflex 500mg BID for RLE cellulitis. discontinue Zosyn due to no IV access. Negative for DVT Morbid obesity: fasting lipids and hmga1c with a.m. labs but currently refusing labs Neuro: Seizure disorder: on dilantin 200mg bid. Card: Hypertensive urgency: on Labetalol 200mg bid. monitor on tele. cardiology following. holding norvasc and lisonopril Renal: Renal failure. renal consulted and following. trend serum creat. and electrolytes Heme: Anemia. likely due to chronic renal disease. iron studies with labs. trend h/h prophylaxis: heparin sc tid bowel regimen with colace and senna protonix 40mg daily Visit type - Emergency Visit Emergency Visit: Yes ED Registration Date: 12/17/18 Care time: The patient presented to the Emergency Department on the above date and was hospitalized for further evaluation of their emergent condition. - New Patient This patient is new to me today: Yes Date on this admission: 12/19/18 - Critical Care Critical Care patient: No - Discharge Referral Referred to [facility] Med P.C.: No
[2018-12-19] MEDS: PHENYTOIN NA EXTENDED 100 MG CAPSULE (FP) PO SCH ×2 (11:12→22:00)
[2018-12-19] MEDS: DOCUSATE SODIUM 100 MG CAPSULE (FP) PO SCH ×2 (11:12→22:00)
[2018-12-19] MEDS: ASPIRIN COATED 81 MG TABLET.EC PO SCH (11:12)
[2018-12-19] MEDS: LABETALOL HCL 200 MG TABLET (FP) PO SCH ×2 (11:12→22:00)
[2018-12-19] MEDS: PANTOPRAZOLE 40 MG TABLET (FP) PO SCH (11:12)
[2018-12-19] MEDS: CEPHALEXIN MONOHYDRATE 500 MG CAPSULE (UD) PO SCH ×2 (11:12→22:04)
--- NOTE | 2018-12-19 13:49 | PN ---
Progress Note, Physician History of Present Illness: Pt seen and examined at bedside. She denies shortness of breath. She feels leg erythema is improving. - Current Medication List Current Medications: Active Medications Acetaminophen (Tylenol -) 1,000 mg PO Q8H PRN PRN Reason: PAIN LEVEL 4 - 6 Last Admin: 12/18/18 21:10 Dose: 1,000 mg Aspirin (Ecotrin -) 81 mg PO DAILY [facility] Last Admin: 12/19/18 11:12 Dose: 81 mg Cephalexin HCl (Keflex -) 500 mg PO BID [facility] Last Admin: 12/19/18 11:12 Dose: 500 mg Docusate Sodium (Colace -) 100 mg PO BID [facility] Last Admin: 12/19/18 11:12 Dose: 100 mg Heparin Sodium (Porcine) (Heparin -) 5,000 unit SQ TID [facility] Last Admin: 12/19/18 07:08 Dose: Not Given Labetalol HCl (Normodyne -) 200 mg PO BID [facility] Last Admin: 12/19/18 11:12 Dose: 200 mg Pantoprazole Sodium (Protonix -) 40 mg PO DAILY [facility] Last Admin: 12/19/18 11:12 Dose: 40 mg Phenytoin Sodium (Dilantin -) 200 mg PO BID [facility] Last Admin: 12/19/18 11:12 Dose: 200 mg Senna (Senna -) 2 tab PO HS [facility] Last Admin: 12/18/18 21:12 Dose: 2 tab - Objective Vital Signs: Vital Signs Temperature 97.9 F 12/19/18 09:00 Pulse Rate 91 H 12/19/18 09:00 Respiratory Rate 20 12/19/18 09:00 Blood Pressure 148/92 12/19/18 09:00 O2 Sat by Pulse Oximetry (%) 96 12/19/18 09:00 Constitutional: Yes: Calm, Anxious Eyes: Yes: Conjunctiva Clear HENT: Yes: Atraumatic Neck: Yes: Supple Cardiovascular: Yes: S1, S2 Respiratory: Yes: CTA Bilaterally Gastrointestinal: Yes: Soft, Abdomen, Obese Genitourinary: Yes: WNL Musculoskeletal: Yes: WNL Edema: No Neurological: Yes: Oriented Psychiatric: Yes: Oriented Labs: CBC, BMP 12/17/18 11:43 12/17/18 11:43 INR, PTT INR 0.84 (0.83-1.09) 12/17/18 11:43 Problem List - Problems (1) Cellulitis of right lower extremity Code(s): L03.115 - CELLULITIS OF RIGHT LOWER LIMB (2) Renal failure Code(s): N19 - UNSPECIFIED KIDNEY FAILURE Qualifiers: Renal failure chronicity: unspecified chronicity Qualified Code(s): N19 - Unspecified kidney failure Assessment/Plan Current Medications Generic Name Dose Route Start Last Admin Trade Name Freq PRN Reason Stop Dose Admin Acetaminophen 1,000 mg 12/18/18 14:26 12/18/18 21:10 Tylenol - PO 1,000 mg Q8H PRN Administration PAIN LEVEL 4 - 6 Aspirin 81 mg 12/18/18 10:00 12/19/18 11:12 Ecotrin - PO 81 mg DAILY [facility] Administration Cephalexin HCl 500 mg 12/18/18 10:00 12/19/18 11:12 Keflex - PO 500 mg BID [facility] Administration Docusate Sodium 100 mg 12/17/18 22:00 12/19/18 11:12 Colace - PO 100 mg BID [facility] Administration Heparin Sodium (Porcine) 5,000 unit 12/17/18 22:00 12/19/18 07:08 Heparin - SQ Not Given TID EL[facility]AH Labetalol HCl 200 mg 12/18/18 09:15 12/19/18 11:12 Normodyne - PO 200 mg BID [facility] Administration Pantoprazole Sodium 40 mg 12/18/18 10:00 12/19/18 11:12 Protonix - PO 40 mg DAILY [facility] Administration Phenytoin Sodium 200 mg 12/17/18 22:00 12/19/18 11:12 Dilantin - PO 200 mg BID [facility] Administration Senna 2 tab 12/17/18 22:00 12/18/18 21:12 Senna - PO 2 tab HS [facility]AH Administration Impression 1. SOHAIL 2. lower ext edema 3. cellulitis 4. HTN 5. arthritis Plan - send renal workup if she agrees, ordered 2 days ago - check bmp to evaluate renal function - bp is improving - cardio follow up - would like to review renal function before ordering diuretics, this was explained to pt
[2018-12-19] MEDS: SENNOSIDES 8.6MG TABLET (FP) PO SCH (22:00)
[2018-12-20] MEDS: HEPARIN NA (PORCINE) 5,000 UNITS/ML 1ML VIAL SQ SCH ×3 (07:15→22:16)
[2018-12-20] MEDS: PHENYTOIN NA EXTENDED 100 MG CAPSULE (FP) PO SCH ×2 (09:41→22:15)
[2018-12-20] MEDS: ASPIRIN COATED 81 MG TABLET.EC PO SCH (09:42)
[2018-12-20] MEDS: DOCUSATE SODIUM 100 MG CAPSULE (FP) PO SCH ×2 (09:42→22:16)
[2018-12-20] MEDS: LABETALOL HCL 200 MG TABLET (FP) PO SCH ×2 (09:42→22:16)
[2018-12-20] MEDS: CEPHALEXIN MONOHYDRATE 500 MG CAPSULE (UD) PO SCH ×2 (09:42→22:16)
[2018-12-20] MEDS: PANTOPRAZOLE 40 MG TABLET (FP) PO SCH (09:42)
[2018-12-20 12:02] LABS: HEMATOCRIT 26.1 % (32.4-45.2); HEMOGLOBIN 8.5 GM/dL (10.7-15.3); MCH 27.2 pg (25.7-33.7); MCHC 32.6 g/dl (32.0-36.0); MEAN CELL VOLUME 83.4 fl (80-96); MEAN PLT VOLUME 6.9 fl (7.5-11.1); PLATELET COUNT 288 K/MM3 (134-434); RBC 3.13 M/mm3 (3.60-5.2); RDW 17.3 % (11.6-15.6); WHITE BLOOD COUNT 8.3 K/mm3 (4.0-10.0)
[2018-12-20 12:17] LABS: INR 0.89 (0.83-1.09); PROTHROMBIN TIME (PATIENT) 10.5 SEC (9.7-13.0)
--- NOTE | 2018-12-20 12:23 | PN ---
Progress Note, Physician History of Present Illness: Pt is a 58 yr old woman with PMH of HTN, s/p CVA x 2 (2017 and 2018), morbid obesity, daily cigarette smoker, chronic arthritis, who is presenting from imaging at [facility] with complaints of b/l LE edema x 1 month, difficulty ambulating 2/2 pain and neuropathy. She has also had intermittent productive cough of yellowish sputum over the past month. The pt has no current complaints. She denies any recent travel, surgery, and estrogen use. Pt denies any fevers/chills, headache, vision changes , syncope, chest pain, palpitations, SOB, nausea/vomiting, abdominal pain, urinary symptoms, or diarrhea/constipation. s/p fall about 48 hours ago while pulling up her pants in the bathroom; pt lost her balance, landed on the tile floor, hitting right side of head, but did not want to be evaluated at that time. No LOC. No reported hx of cardiac disease (though sent by counseling program leader for labs and bilateral LE US today). Hx poor compliance with medications; did not take morning meds today. Her BP was found to be extremely high, and BUN/Cr also elevated. She was started on labetolol. - Current Medication List Current Medications: Active Medications Acetaminophen (Tylenol -) 1,000 mg PO Q8H PRN PRN Reason: PAIN LEVEL 4 - 6 Last Admin: 12/18/18 21:10 Dose: 1,000 mg Aspirin (Ecotrin -) 81 mg PO DAILY [facility] Last Admin: 12/20/18 09:42 Dose: 81 mg Cephalexin HCl (Keflex -) 500 mg PO BID [facility] Last Admin: 12/20/18 09:42 Dose: 500 mg Docusate Sodium (Colace -) 100 mg PO BID [facility] Last Admin: 12/20/18 09:42 Dose: 100 mg Heparin Sodium (Porcine) (Heparin -) 5,000 unit SQ TID [facility] Last Admin: 12/20/18 07:15 Dose: Not Given Labetalol HCl (Normodyne -) 200 mg PO BID [facility] Last Admin: 12/20/18 09:42 Dose: 200 mg Pantoprazole Sodium (Protonix -) 40 mg PO DAILY [facility] Last Admin: 12/20/18 09:42 Dose: 40 mg Phenytoin Sodium (Dilantin -) 200 mg PO BID [facility] Last Admin: 12/20/18 09:41 Dose: 200 mg Senna (Senna -) 2 tab PO HS [facility] Last Admin: 12/19/18 22:00 Dose: 2 tab - Objective Vital Signs: Vital Signs Temperature 98 F 12/20/18 09:00 Pulse Rate 82 12/20/18 09:00 Respiratory Rate 20 12/20/18 09:00 Blood Pressure 148/98 12/20/18 09:00 O2 Sat by Pulse Oximetry (%) 97 12/19/18 21:00 Eyes: Yes: WNL, Conjunctiva Clear, EOM Intact HENT: Yes: WNL, Atraumatic, Normocephalic Neck: Yes: WNL, Supple, Trachea Midline Cardiovascular: Yes: WNL, Regular Rate and Rhythm Respiratory: Yes: WNL, Regular, CTA Bilaterally Gastrointestinal: Yes: WNL, Normal Bowel Sounds Genitourinary: Yes: WNL Musculoskeletal: Yes: WNL Extremities: Yes: WNL Edema: No Integumentary: Yes: WNL Neurological: Yes: WNL, Alert, Oriented ...Motor Strength: WNL Psychiatric: Yes: WNL Labs: CBC, BMP 12/20/18 11:30 INR, PTT INR 0.89 (0.83-1.09) 12/20/18 11:30 Assessment/Plan - Problems (1) Anemia Assessment/Plan: Hb also noted to be reduced in 2013; f/u workup. Code(s): D64.9 - ANEMIA, UNSPECIFIED (2) Body mass index (BMI) of 40.1 to 44.9 in adult Assessment/Plan: dietary consult while hospitalized would be on benefit. Code(s): Z68.41 - BODY MASS INDEX (BMI) 40.0-44.9, ADULT (3) Hypertensive emergency Assessment/Plan: Now on labetolol 200 mg bid; increase as needed, and consider 2nd antihypertensive agent, e.g. amlodipine or hydralazine. ECHO :limited study; groswsly normal LVEF; regional wall motion could not be assessed. BUN/Cr remainsmarkedly elevated; f/u with assembler body. F/u prior cardiac workup; pt is reluctant to undergo any further cardiac studies at this time, saying she has had no troubles with her heart. Code(s): I16.1 - HYPERTENSIVE EMERGENCY (4) Renal failure Code(s): N19 - UNSPECIFIED KIDNEY FAILURE Qualifiers: Renal failure chronicity: unspecified chronicity Qualified Code(s): N19 - Unspecified kidney failure (5) Elevated brain natriuretic peptide (BNP) level Code(s): R79.89 - OTHER SPECIFIED ABNORMAL FINDINGS OF BLOOD CHEMISTRY (6) [place] cardiac risk >20% in next 10 years Assessment/Plan: Will require coronary artery evaluation once BP is controlled, if not done recently (f/u prior cardiac w/u);depending on clinical course while here, may be able to be done as outpatient. Code(s): Z91.89 - OTH PERSONAL RISK FACTORS, NOT ELSEWHERE CLASSIFIED (7) Cigarette nicotine dependence Code(s): F17.210 - NICOTINE DEPENDENCE, CIGARETTES, UNCOMPLICATED
[2018-12-20 12:33] LABS: ANION GAP 11 MMOL/L (8-16); BLOOD UREA NITROGEN 45 mg/dL (7-18); CALCIUM 7.3 mg/dL (8.5-10.1); CHLORIDE 112 mmol/L (98-107); CO2 21 mmol/L (21-32); CREATININE 5.4 mg/dL (0.55-1.3); GLUCOSE,RANDOM 96 mg/dL (74-106); POTASSIUM 3.8 mmol/L (3.5-5.1); SODIUM 143 mmol/L (136-145)
--- NOTE | 2018-12-20 15:09 | PN ---
Progress Note, Physician History of Present Illness: Pt seen and examined at bedside. She denies shortness of breath. She is awake and alert. She is not very cooperative. - Current Medication List Current Medications: Active Medications Acetaminophen (Tylenol -) 1,000 mg PO Q8H PRN PRN Reason: PAIN LEVEL 4 - 6 Last Admin: 12/18/18 21:10 Dose: 1,000 mg Aspirin (Ecotrin -) 81 mg PO DAILY [facility] Last Admin: 12/20/18 09:42 Dose: 81 mg Cephalexin HCl (Keflex -) 500 mg PO BID [facility] Last Admin: 12/20/18 09:42 Dose: 500 mg Docusate Sodium (Colace -) 100 mg PO BID [facility] Last Admin: 12/20/18 09:42 Dose: 100 mg Heparin Sodium (Porcine) (Heparin -) 5,000 unit SQ TID [facility] Last Admin: 12/20/18 14:34 Dose: Not Given Labetalol HCl (Normodyne -) 200 mg PO BID [facility] Last Admin: 12/20/18 09:42 Dose: 200 mg Pantoprazole Sodium (Protonix -) 40 mg PO DAILY [facility] Last Admin: 12/20/18 09:42 Dose: 40 mg Phenytoin Sodium (Dilantin -) 200 mg PO BID [facility] Last Admin: 12/20/18 09:41 Dose: 200 mg Senna (Senna -) 2 tab PO HS [facility] Last Admin: 12/19/18 22:00 Dose: 2 tab - Objective Vital Signs: Vital Signs Temperature 98 F 12/20/18 09:00 Pulse Rate 82 12/20/18 09:00 Respiratory Rate 20 12/20/18 09:00 Blood Pressure 148/98 12/20/18 09:00 O2 Sat by Pulse Oximetry (%) 97 12/20/18 09:00 Constitutional: Yes: No Distress Eyes: Yes: Conjunctiva Clear HENT: Yes: Atraumatic Neck: Yes: Supple Cardiovascular: Yes: S1, S2 Respiratory: Yes: CTA Bilaterally Gastrointestinal: Yes: Soft, Abdomen, Obese Genitourinary: Yes: WNL Edema: Yes Edema: LLE: 2+, RLE: 2+ Neurological: Yes: Oriented Psychiatric: Yes: Oriented Labs: CBC, BMP 12/20/18 11:30 12/20/18 11:30 INR, PTT INR 0.89 (0.83-1.09) 12/20/18 11:30 Problem List - Problems (1) Cellulitis of right lower extremity Code(s): L03.115 - CELLULITIS OF RIGHT LOWER LIMB (2) Renal failure Code(s): N19 - UNSPECIFIED KIDNEY FAILURE Qualifiers: Renal failure chronicity: unspecified chronicity Qualified Code(s): N19 - Unspecified kidney failure Assessment/Plan Current Medications Generic Name Dose Route Start Last Admin Trade Name Freq PRN Reason Stop Dose Admin Acetaminophen 1,000 mg 12/18/18 14:26 12/18/18 21:10 Tylenol - PO 1,000 mg Q8H PRN Administration PAIN LEVEL 4 - 6 Aspirin 81 mg 12/18/18 10:00 12/20/18 09:42 Ecotrin - PO 81 mg DAILY [facility]AH Administration Cephalexin HCl 500 mg 12/18/18 10:00 12/20/18 09:42 Keflex - PO 500 mg BID [facility] Administration Docusate Sodium 100 mg 12/17/18 22:00 12/20/18 09:42 Colace - PO 100 mg BID [facility]AH Administration Heparin Sodium (Porcine) 5,000 unit 12/17/18 22:00 12/20/18 14:34 Heparin - SQ Not Given TID ELIJAH Labetalol HCl 200 mg 12/18/18 09:15 12/20/18 09:42 Normodyne - PO 200 mg BID [facility] Administration Pantoprazole Sodium 40 mg 12/18/18 10:00 12/20/18 09:42 Protonix - PO 40 mg DAILY [facility] Administration Phenytoin Sodium 200 mg 12/17/18 22:00 12/20/18 09:41 Dilantin - PO 200 mg BID [facility] Administration Senna 2 tab 12/17/18 22:00 12/19/18 22:00 Senna - PO 2 tab HS [facility]IJAH Administration Impression 1. SOHAIL 2. lower ext edema 3. cellulitis 4. HTN 5. arthritis Plan - renal function is worse - serologies for renal workup are not drawn - pt is not cooperative at all - explained degree of renal failure to her - discussed kidney biopsy with her and discussed possibility of dialysis with worsening renal failure
[2018-12-20] MEDS: ACETAMINOPHEN 500 MG TABLET (FP) PO PRN (18:22)
--- NOTE | 2018-12-20 22:14 | PN ---
Physical Exam: SUBJECTIVE: Patient seen and examined at the bedside. in no acute distress. feels well. OBJECTIVE: Vital Signs Period Temp Pulse Resp BP Sys/Jones Pulse Ox Last 24 Hr 97.7 F-98.5 F 80-87 18-20 126-153/71-101 97 GENERAL: The patient is awake, alert, and fully oriented, in no acute distress. HEAD: Normal with no signs of trauma. EYES: PERRL, extraocular movements intact, sclera anicteric, conjunctiva clear. No ptosis. ENT: Ears normal, nares patent, oropharynx clear without exudates, moist mucous membranes. NECK: Trachea midline, full range of motion, supple. LUNGS: Breath sounds equal, clear to auscultation bilaterally, no wheezes HEART: Regular rate and rhythm ABDOMEN: obese abdomen EXTREMITIES lower ext non pitting edema, negative for dvt. NEUROLOGICAL: Normal speech, gait not observed. PSYCH: Normal mood, normal affect Laboratory Results - last 24 hr 12/19/18 12/20/18 12/20/18 16:00 11:30 11:30 WBC 8.3 RBC 3.13 L Hgb 8.5 L Hct 26.1 L MCV 83.4 MCH 27.2 MCHC 32.6 RDW 17.3 H Plt Count 288 D MPV 6.9 L PT with INR INR Sodium 143 Potassium 3.8 Chloride 112 H Carbon Dioxide 21 Anion Gap 11 BUN 45 H Creatinine 5.4 H Creat Clearance w eGFR 8.08 Random Glucose 96 Lactic Acid Calcium 7.3 L Ammonia Protein/Creatinin Ratio 11.020 Blood Type Antibody Screen 12/20/18 12/20/18 12/20/18 11:30 11:30 11:30 WBC RBC Hgb Hct MCV MCH MCHC RDW Plt Count MPV PT with INR 10.50 INR 0.89 Sodium Potassium Chloride Carbon Dioxide Anion Gap BUN Creatinine Creat Clearance w eGFR Random Glucose Lactic Acid 1.4 Calcium Ammonia 19.00 Protein/Creatinin Ratio Blood Type Antibody Screen 12/20/18 11:30 WBC RBC Hgb Hct MCV MCH MCHC RDW Plt Count MPV PT with INR INR Sodium Potassium Chloride Carbon Dioxide Anion Gap BUN Creatinine Creat Clearance w eGFR Random Glucose Lactic Acid Calcium Ammonia Protein/Creatinin Ratio Blood Type A POSITIVE Antibody Screen Negative Active Medications Generic Name Dose Route Start Last Admin Trade Name Freq PRN Reason Stop Dose Admin Acetaminophen 1,000 mg 12/18/18 14:26 12/20/18 18:22 Tylenol - PO 1,000 mg Q8H PRN Administration PAIN LEVEL 4 - 6 Aspirin 81 mg 12/18/18 10:00 12/20/18 09:42 Ecotrin - PO 81 mg DAILY ELIJAH Administration Atorvastatin Calcium 40 mg 12/20/18 22:00 Lipitor - PO HS ELIJAH Cephalexin HCl 500 mg 12/18/18 10:00 12/20/18 09:42 Keflex - PO 500 mg BID ELIJAH Administration Docusate Sodium 100 mg 12/17/18 22:00 12/20/18 09:42 Colace - PO 100 mg BID ELIJAH Administration Heparin Sodium (Porcine) 5,000 unit 12/17/18 22:00 12/20/18 14:34 Heparin - SQ Not Given TID ELIJAH Labetalol HCl 200 mg 12/18/18 09:15 12/20/18 09:42 Normodyne - PO 200 mg BID ELIJAH Administration Pantoprazole Sodium 40 mg 12/18/18 10:00 12/20/18 09:42 Protonix - PO 40 mg DAILY ELIJAH Administration Phenytoin Sodium 200 mg 12/17/18 22:00 12/20/18 09:41 Dilantin - PO 200 mg BID ELIJAH Administration Senna 2 tab 12/17/18 22:00 12/19/18 22:00 Senna - PO 2 tab HS ELIJAH Administration ASSESSMENT/PLAN: Patient is a 58 year old female with a past medical history of morbid obesity, hypertension, anemia, current daily smoker, DVT, CVA x2 w/ subsequent seizure disorder (maintained on Dilantin) presents from radiology department for evaluation after her health insurance was not accepted for scheduled b/l LE ultrasound. Ms. Adler sustained a fall in her bathub on Sunday, 12/15; where she hit her head and was unable to get up from bathtub. EMS and Fire were activated and assisted patient out of bathtub. She was referred by PCP for LE doppler studies at [facility] radiology, however, due to her insurance not being accepted, she was referred to ED for evaluation. Vascular: lower ext edema. Cellulitis of right lower ext. On Keflex 500mg BID for RLE cellulitis. discontinue Zosyn due to no IV access. Negative for DVT Morbid obesity: started on lipitor for elevated lipid panel. hmga1c 4.7 dietary consulted Neuro: Seizure disorder: on dilantin 200mg bid. Card: Hypertension: on Labetalol 200mg bid. monitor on tele. cardiology following. holding norvasc and lisonopril Renal: Renal failure. renal consulted and following. worsening of renal function per renal, patient may need dialysis kidney biopsy recommended Heme: Anemia. likely due to chronic renal disease. iron studies with labs. trend h/h prophylaxis: heparin sc tid bowel regimen with colace and senna protonix 40mg daily Visit type - Emergency Visit Emergency Visit: Yes ED Registration Date: 12/17/18 Care time: The patient presented to the Emergency Department on the above date and was hospitalized for further evaluation of their emergent condition. - New Patient This patient is new to me today: No - Critical Care Critical Care patient: No - Discharge Referral Referred to [facility] No
[2018-12-20] MEDS: ATORVASTATIN CA 40 MG TABLET (FP) PO SCH (22:15)
[2018-12-20] MEDS: SENNOSIDES 8.6MG TABLET (FP) PO SCH (22:16)
[2018-12-21] MEDS: HEPARIN NA (PORCINE) 5,000 UNITS/ML 1ML VIAL SQ SCH ×3 (06:45→21:26)
[2018-12-21 07:32] LABS: BASO % 1.8 % (0-2.0); EOS % 8.9 % (0-4.5); HEMATOCRIT 26.1 % (32.4-45.2); HEMOGLOBIN 8.6 GM/dL (10.7-15.3); LYMPH % 24.2 % (8-40); MCH 27.8 pg (25.7-33.7); MEAN CELL VOLUME 84.1 fl (80-96); MONO % 4.4 % (3.8-10.2); NEUT % 60.7 % (42.8-82.8); PLATELET COUNT 335 K/MM3 (134-434); RBC 3.11 M/mm3 (3.60-5.2); WHITE BLOOD COUNT 7.7 K/mm3 (4.0-10.0)
[2018-12-21 07:59] LABS: ALBUMIN 1.8 g/dl (3.4-5.0); ALK PHOS 191 U/L (45-117); ANION GAP 11 MMOL/L (8-16); BILIRUBIN,TOTAL 0.3 mg/dL (0.2-1); BLOOD UREA NITROGEN 46 mg/dL (7-18); CALCIUM 7.3 mg/dL (8.5-10.1); CHLORIDE 110 mmol/L (98-107); CO2 20 mmol/L (21-32); CREATININE 5.3 mg/dL (0.55-1.3); GLUCOSE,RANDOM 78 mg/dL (74-106); MAGNESIUM 1.8 mg/dL (1.8-2.4); POTASSIUM 3.8 mmol/L (3.5-5.1); SGOT/AST 36 U/L (15-37); SGPT/ALT 22 U/L (13-61); SODIUM 141 mmol/L (136-145); TOT PROT 5.1 g/dl (6.4-8.2)
--- NOTE | 2018-12-21 08:58 | PN ---
Progress Note, Physician History of Present Illness: Pt is a 58 yr old woman with PMH of HTN, s/p CVA x 2 (2017 and 2018), morbid obesity, daily cigarette smoker, chronic arthritis, who is presenting from imaging at [facility] with complaints of b/l LE edema x 1 month, difficulty ambulating 2/2 pain and neuropathy. She has also had intermittent productive cough of yellowish sputum over the past month. The pt has no current complaints. She denies any recent travel, surgery, and estrogen use. Pt denies any fevers/chills, headache, vision changes , syncope, chest pain, palpitations, SOB, nausea/vomiting, abdominal pain, urinary symptoms, or diarrhea/constipation. s/p fall about 48 hours ago while pulling up her pants in the bathroom; pt lost her balance, landed on the tile floor, hitting right side of head, but did not want to be evaluated at that time. No LOC. No reported hx of cardiac disease (though sent by forensic psychiatrist for labs and bilateral LE US today). Hx poor compliance with medications; did not take morning meds today. Her BP was found to be extremely high, and BUN/Cr also elevated. She was started on labetolol. - Current Medication List Current Medications: Active Medications Acetaminophen (Tylenol -) 1,000 mg PO Q8H PRN PRN Reason: PAIN LEVEL 4 - 6 Last Admin: 12/20/18 18:22 Dose: 1,000 mg Aspirin (Ecotrin -) 81 mg PO DAILY [facility] Last Admin: 12/20/18 09:42 Dose: 81 mg Atorvastatin Calcium (Lipitor -) 40 mg PO HS [facility] Last Admin: 12/20/18 22:15 Dose: 40 mg Cephalexin HCl (Keflex -) 500 mg PO BID [facility] Last Admin: 12/20/18 22:16 Dose: 500 mg Docusate Sodium (Colace -) 100 mg PO BID [facility] Last Admin: 12/20/18 22:16 Dose: 100 mg Heparin Sodium (Porcine) (Heparin -) 5,000 unit SQ TID [facility] Last Admin: 12/21/18 06:45 Dose: Not Given Labetalol HCl (Normodyne -) 200 mg PO BID [facility] Last Admin: 12/20/18 22:16 Dose: 200 mg Pantoprazole Sodium (Protonix -) 40 mg PO DAILY [facility] Last Admin: 12/20/18 09:42 Dose: 40 mg Phenytoin Sodium (Dilantin -) 200 mg PO BID ELIJAH Last Admin: 12/20/18 22:15 Dose: 200 mg Senna (Senna -) 2 tab PO HS [facility] Last Admin: 12/20/18 22:16 Dose: 2 tab - Objective Vital Signs: Vital Signs Temperature 97.5 F L 12/21/18 02:00 Pulse Rate 84 12/21/18 06:00 Respiratory Rate 20 12/21/18 06:00 Blood Pressure 143/98 12/21/18 06:00 O2 Sat by Pulse Oximetry (%) 97 12/20/18 21:00 Eyes: Yes: WNL, Conjunctiva Clear, EOM Intact HENT: Yes: WNL, Atraumatic, Normocephalic Neck: Yes: WNL, Supple, Trachea Midline Cardiovascular: Yes: WNL, Regular Rate and Rhythm Respiratory: Yes: WNL, Regular, CTA Bilaterally Gastrointestinal: Yes: WNL, Normal Bowel Sounds Genitourinary: Yes: WNL Musculoskeletal: Yes: WNL Extremities: Yes: WNL Edema: Yes Integumentary: Yes: WNL Neurological: Yes: WNL, Alert, Oriented ...Motor Strength: WNL Psychiatric: Yes: WNL Labs: CBC, BMP 12/21/18 05:30 12/21/18 05:30 INR, PTT INR 0.89 (0.83-1.09) 12/20/18 11:30 Assessment/Plan - Problems (1) Anemia Assessment/Plan: Hb also noted to be reduced in 2014; f/u workup. Code(s): D64.9 - ANEMIA, UNSPECIFIED (2) Body mass index (BMI) of 40.1 to 44.9 in adult Assessment/Plan: dietary consult while hospitalized would be on benefit. Code(s): Z68.41 - BODY MASS INDEX (BMI) 40.0-44.9, ADULT (3) Hypertensive emergency Assessment/Plan: Now on labetolol 200 mg bid; increase as needed, and consider 2nd antihypertensive agent, e.g. amlodipine or hydralazine. ECHO :limited study; groswsly normal LVEF; regional wall motion could not be assessed. BUN/Cr remainsmarkedly elevated; f/u with manager strategy. F/u prior cardiac workup; pt is reluctant to undergo any further cardiac studies at this time, saying she has had no troubles with her heart. Code(s): I16.1 - HYPERTENSIVE EMERGENCY (4) Renal failure Code(s): N19 - UNSPECIFIED KIDNEY FAILURE Qualifiers: Renal failure chronicity: unspecified chronicity Qualified Code(s): N19 - Unspecified kidney failure (5) Elevated brain natriuretic peptide (BNP) level Code(s): R79.89 - OTHER SPECIFIED ABNORMAL FINDINGS OF BLOOD CHEMISTRY (6) [place] cardiac risk >20% in next 10 years Assessment/Plan: Will require coronary artery evaluation once BP is controlled, if not done recently (f/u prior cardiac w/u);depending on clinical course while here, may be able to be done as outpatient. Code(s): Z91.89 - OTH PERSONAL RISK FACTORS, NOT ELSEWHERE CLASSIFIED (7) Cigarette nicotine dependence Code(s): F17.210 - NICOTINE DEPENDENCE, CIGARETTES, UNCOMPLICATED
[2018-12-21] MEDS: PHENYTOIN NA EXTENDED 100 MG CAPSULE (FP) PO SCH ×2 (09:41→21:15)
[2018-12-21] MEDS: DOCUSATE SODIUM 100 MG CAPSULE (FP) PO SCH ×2 (09:41→21:24)
[2018-12-21] MEDS: ASPIRIN COATED 81 MG TABLET.EC PO SCH (09:41)
[2018-12-21] MEDS: LABETALOL HCL 200 MG TABLET (FP) PO SCH ×2 (09:41→21:26)
[2018-12-21] MEDS: PANTOPRAZOLE 40 MG TABLET (FP) PO SCH (09:41)
[2018-12-21] MEDS: CEPHALEXIN MONOHYDRATE 500 MG CAPSULE (UD) PO SCH ×2 (09:41→21:24)
--- NOTE | 2018-12-21 10:03 | PN ---
Physical Exam: SUBJECTIVE: Patient seen and examined at the bedside. 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 HEAD: Normal with no signs of trauma. EYES: PERRL, extraocular movements intact, sclera anicteric, conjunctiva clear. No ptosis. ENT: Ears normal, nares patent, oropharynx clear without exudates, moist mucous membranes. NECK: Trachea midline, full range of motion, supple. LUNGS: Breath sounds equal, clear to auscultation bilaterally, no wheezes HEART: Regular rate and rhythm ABDOMEN: obese abdomen EXTREMITIES lower ext non pitting edema, negative for dvt. NEUROLOGICAL: Normal speech, gait not observed. PSYCH: Normal mood, normal affect Laboratory Results - last 24 hr 12/20/18 12/20/18 12/20/18 11:30 11:30 11:30 WBC 8.3 RBC 3.13 L Hgb 8.5 L Hct 26.1 L MCV 83.4 MCH 27.2 MCHC 32.6 RDW 17.3 H Plt Count 288 D MPV 6.9 L Absolute Neuts (auto) Neutrophils % Lymphocytes % Monocytes % Eosinophils % Basophils % Nucleated RBC % PT with INR 10.50 INR 0.89 Sodium 143 Potassium 3.8 Chloride 112 H Carbon Dioxide 21 Anion Gap 11 BUN 45 H Creatinine 5.4 H Creat Clearance w eGFR 8.08 Random Glucose 96 Lactic Acid Calcium 7.3 L Magnesium Total Bilirubin AST ALT Alkaline Phosphatase Ammonia Total Protein Albumin Blood Type Antibody Screen 12/20/18 12/20/18 12/20/18 11:30 11:30 11:30 WBC RBC Hgb Hct MCV MCH MCHC RDW Plt Count MPV Absolute Neuts (auto) Neutrophils % Lymphocytes % Monocytes % Eosinophils % Basophils % Nucleated RBC % PT with INR INR Sodium Potassium Chloride Carbon Dioxide Anion Gap BUN Creatinine Creat Clearance w eGFR Random Glucose Lactic Acid 1.4 Calcium Magnesium Total Bilirubin AST ALT Alkaline Phosphatase Ammonia 19.00 Total Protein Albumin Blood Type A POSITIVE Antibody Screen Negative 12/21/18 12/21/18 05:30 05:30 WBC 7.7 RBC 3.11 L Hgb 8.6 L Hct 26.1 L MCV 84.1 MCH 27.8 MCHC 33.0 RDW 18.0 H Plt Count 335 MPV 7.0 L Absolute Neuts (auto) 4.7 Neutrophils % 60.7 Lymphocytes % 24.2 D Monocytes % 4.4 Eosinophils % 8.9 H Basophils % 1.8 Nucleated RBC % 0 PT with INR INR Sodium 141 Potassium 3.8 Chloride 110 H Carbon Dioxide 20 L Anion Gap 11 BUN 46 H Creatinine 5.3 H Creat Clearance w eGFR 8.25 Random Glucose 78 Lactic Acid Calcium 7.3 L Magnesium 1.8 Total Bilirubin 0.3 AST 36 ALT 22 Alkaline Phosphatase 191 H Ammonia Total Protein 5.1 L Albumin 1.8 L Blood Type Antibody Screen Active Medications Generic Name Dose Route Start Last Admin Trade Name Freq PRN Reason Stop Dose Admin Acetaminophen 1,000 mg 12/18/18 14:26 12/20/18 18:22 Tylenol - PO 1,000 mg Q8H PRN Administration PAIN LEVEL 4 - 6 Aspirin 81 mg 12/18/18 10:00 12/21/18 09:41 Ecotrin - PO 81 mg DAILY ELIJAH Administration Atorvastatin Calcium 40 mg 12/20/18 22:00 12/20/18 22:15 Lipitor - PO 40 mg HS ELIJAH Administration Cephalexin HCl 500 mg 12/18/18 10:00 12/21/18 09:41 Keflex - PO 500 mg BID ELIJAH Administration Docusate Sodium 100 mg 12/17/18 22:00 12/21/18 09:41 Colace - PO 100 mg BID ELIJAH Administration Heparin Sodium (Porcine) 5,000 unit 12/17/18 22:00 12/21/18 06:45 Heparin - SQ Not Given TID ELIJAH Labetalol HCl 200 mg 12/18/18 09:15 12/21/18 09:41 Normodyne - PO 200 mg BID ELIJAH Administration Pantoprazole Sodium 40 mg 12/18/18 10:00 12/21/18 09:41 Protonix - PO 40 mg DAILY ELIJAH Administration Phenytoin Sodium 200 mg 12/17/18 22:00 12/21/18 09:41 Dilantin - PO 200 mg BID ELIJAH Administration Senna 2 tab 12/17/18 22:00 12/20/18 22:16 Senna - PO 2 tab HS ELIJAH Administration ASSESSMENT/PLAN: Patient is a 58 year old female with a past medical history of morbid obesity, hypertension, anemia, current daily smoker, DVT, CVA x2 w/ subsequent seizure disorder (maintained on Dilantin) presents from radiology department for evaluation after her health insurance was not accepted for scheduled b/l LE ultrasound. Patient also with recent fall at home. Ms. Adler sustained a fall in her bathub on Sunday, 12/15; where she hit her head and was unable to get up from bathtub. Workup done here shows patient is in renal failure and has been evaluated by renal. During hospital stay, patient has refused an IV and attempts to draw blood work have been difficult as she often refuses. Spoke to patient and her daughter and made patient aware of importance of daily blood work since she is in renal failure any may require dialysis. Vascular: lower ext edema. Cellulitis of right lower ext. On Keflex 500mg BID for RLE cellulitis. she is refusing IV placement currently and was initially on zosyn. Negative for DVT of bilateral lower extremities. Morbid obesity: started on lipitor for elevated lipid panel. hmga1c 4.7 dietary consulted for morbid obesity Neuro: Seizure disorder: on dilantin 200mg bid. Card: Hypertension: on Labetalol 200mg bid. may need further uptitration if bp uncontrolled. monitor on tele. cardiology following. notes reviewed. patient may require coronary artery evaluation once BP is better controlled holding norvasc and lisonopril for renal failure Renal: Renal failure. renal consulted and following. worsening of renal function with a creat. 5.3, potassium is normal. per renal, patient may need dialysis kidney biopsy recommended Heme: Anemia. likely due to chronic renal disease. iron studies with labs. trend h/h prophylaxis: heparin sc tid bowel regimen with colace and senna protonix 40mg daily Visit type - Emergency Visit Emergency Visit: Yes ED Registration Date: 12/17/18 Care time: The patient presented to the Emergency Department on the above date and was hospitalized for further evaluation of their emergent condition. - New Patient This patient is new to me today: No - Critical Care Critical Care patient: No - Discharge Referral Referred to [facility] No
--- NOTE | 2018-12-21 15:48 | PN ---
Progress Note, Physician History of Present Illness: Pt seen and examined at bedside. She is awake and alert. She denies shortness of breath. She denies dysuria. - Current Medication List Current Medications: Active Medications Acetaminophen (Tylenol -) 1,000 mg PO Q8H PRN PRN Reason: PAIN LEVEL 4 - 6 Last Admin: 12/20/18 18:22 Dose: 1,000 mg Aspirin (Ecotrin -) 81 mg PO DAILY [facility] Last Admin: 12/21/18 09:41 Dose: 81 mg Atorvastatin Calcium (Lipitor -) 40 mg PO HS [facility] Last Admin: 12/20/18 22:15 Dose: 40 mg Cephalexin HCl (Keflex -) 500 mg PO BID [facility] Last Admin: 12/21/18 09:41 Dose: 500 mg Docusate Sodium (Colace -) 100 mg PO BID [facility] Last Admin: 12/21/18 09:41 Dose: 100 mg Heparin Sodium (Porcine) (Heparin -) 5,000 unit SQ TID [facility] Last Admin: 12/21/18 06:45 Dose: Not Given Labetalol HCl (Normodyne -) 200 mg PO BID [facility] Last Admin: 12/21/18 09:41 Dose: 200 mg Pantoprazole Sodium (Protonix -) 40 mg PO DAILY [facility] Last Admin: 12/21/18 09:41 Dose: 40 mg Phenytoin Sodium (Dilantin -) 200 mg PO BID [facility] Last Admin: 12/21/18 09:41 Dose: 200 mg Senna (Senna -) 2 tab PO [facility] Last Admin: 12/20/18 22:16 Dose: 2 tab - Objective Vital Signs: Vital Signs Temperature 98 F 12/21/18 09:39 Pulse Rate 79 12/21/18 09:39 Respiratory Rate 20 12/21/18 09:39 Blood Pressure 154/101 H 12/21/18 09:39 O2 Sat by Pulse Oximetry (%) 95 12/21/18 09:00 Constitutional: Yes: Calm Eyes: Yes: Conjunctiva Clear HENT: Yes: Atraumatic Neck: Yes: Supple Cardiovascular: Yes: S1, S2 Respiratory: Yes: CTA Bilaterally Gastrointestinal: Yes: Soft, Abdomen, Obese Genitourinary: Yes: WNL Musculoskeletal: Yes: WNL Edema: Yes Edema: LLE: 1+, RLE: 1+ Neurological: Yes: Oriented Psychiatric: Yes: Oriented Labs: CBC, BMP 12/21/18 05:30 12/21/18 05:30 INR, PTT INR 0.89 (0.83-1.09) 12/20/18 11:30 Problem List - Problems (1) Cellulitis of right lower extremity Code(s): L03.115 - CELLULITIS OF RIGHT LOWER LIMB (2) Renal failure Code(s): N19 - UNSPECIFIED KIDNEY FAILURE Qualifiers: Renal failure chronicity: unspecified chronicity Qualified Code(s): N19 - Unspecified kidney failure Assessment/Plan Current Medications Generic Name Dose Route Start Last Admin Trade Name Freq PRN Reason Stop Dose Admin Acetaminophen 1,000 mg 12/18/18 14:26 12/20/18 18:22 Tylenol - PO 1,000 mg Q8H PRN Administration PAIN LEVEL 4 - 6 Aspirin 81 mg 12/18/18 10:00 12/21/18 09:41 Ecotrin - PO 81 mg DAILY ELIJAH Administration Atorvastatin Calcium 40 mg 12/20/18 22:00 12/20/18 22:15 Lipitor - PO 40 mg HS ELIJAH Administration Cephalexin HCl 500 mg 12/18/18 10:00 12/21/18 09:41 Keflex - PO 500 mg BID ELIJAH Administration Docusate Sodium 100 mg 12/17/18 22:00 12/21/18 09:41 Colace - PO 100 mg BID ELIJAH Administration Heparin Sodium (Porcine) 5,000 unit 12/17/18 22:00 12/21/18 06:45 Heparin - SQ Not Given TID ELIJAH Labetalol HCl 200 mg 12/18/18 09:15 12/21/18 09:41 Normodyne - PO 200 mg BID ELIJAH Administration Pantoprazole Sodium 40 mg 12/18/18 10:00 12/21/18 09:41 Protonix - PO 40 mg DAILY ELIJAH Administration Phenytoin Sodium 200 mg 12/17/18 22:00 12/21/18 09:41 Dilantin - PO 200 mg BID ELIJAH Administration Senna 2 tab 12/17/18 22:00 12/20/18 22:16 Senna - PO 2 tab HS ELIJAH Administration Laboratory Tests 12/17/18 12/19/18 16:00 16:00 Urine Protein 4+ H Urine Blood 3+ H Protein/Creatinin Ratio 11.020 Impression 1. SOHAIL 2. lower ext edema 3. cellulitis 4. HTN 5. arthritis 6. 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
[2018-12-21] MEDS: ACETAMINOPHEN 500 MG TABLET (FP) PO PRN (18:06)
[2018-12-21] MEDS: ATORVASTATIN CA 40 MG TABLET (FP) PO SCH (21:24)
[2018-12-21] MEDS: SENNOSIDES 8.6MG TABLET (FP) PO SCH (21:25)
--- NOTE | 2018-12-22 09:30 | PN ---
Progress Note, Physician History of Present Illness: Pt is a 58 yr old woman with PMH of HTN, s/p CVA x 2 (2017 and 2018), morbid obesity, daily cigarette smoker, chronic arthritis, who is presenting from imaging at [facility] with complaints of b/l LE edema x 1 month, difficulty ambulating 2/2 pain and neuropathy. She has also had intermittent productive cough of yellowish sputum over the past month. The pt has no current complaints. She denies any recent travel, surgery, and estrogen use. Pt denies any fevers/chills, headache, vision changes , syncope, chest pain, palpitations, SOB, nausea/vomiting, abdominal pain, urinary symptoms, or diarrhea/constipation. s/p fall about 48 hours ago while pulling up her pants in the bathroom; pt lost her balance, landed on the tile floor, hitting right side of head, but did not want to be evaluated at that time. No LOC. No reported hx of cardiac disease (though sent by shuttle operator for labs and bilateral LE US today). Hx poor compliance with medications; did not take morning meds today. Her BP was found to be extremely high, and BUN/Cr also elevated. She was started on labetolol. - Current Medication List Current Medications: Active Medications Acetaminophen (Tylenol -) 1,000 mg PO Q8H PRN PRN Reason: PAIN LEVEL 4 - 6 Last Admin: 12/21/18 18:06 Dose: 1,000 mg Aspirin (Ecotrin -) 81 mg PO DAILY [facility] Last Admin: 12/21/18 09:41 Dose: 81 mg Atorvastatin Calcium (Lipitor -) 40 mg PO HS [facility] Last Admin: 12/21/18 21:24 Dose: 40 mg Cephalexin HCl (Keflex -) 500 mg PO BID [facility] Last Admin: 12/21/18 21:24 Dose: 500 mg Docusate Sodium (Colace -) 100 mg PO BID [facility] Last Admin: 12/21/18 21:24 Dose: 100 mg Heparin Sodium (Porcine) (Heparin -) 5,000 unit SQ TID [facility] Last Admin: 12/21/18 21:26 Dose: Not Given Labetalol HCl (Normodyne -) 200 mg PO BID [facility] Last Admin: 12/21/18 21:26 Dose: 200 mg Pantoprazole Sodium (Protonix -) 40 mg PO DAILY [facility] Last Admin: 12/21/18 09:41 Dose: 40 mg Phenytoin Sodium (Dilantin -) 200 mg PO BID [facility] Last Admin: 12/21/18 21:15 Dose: 200 mg Senna (Senna -) 2 tab PO HS [facility] Last Admin: 12/21/18 21:25 Dose: 2 tab - Objective Vital Signs: Vital Signs Temperature 97.8 F 12/22/18 05:00 Pulse Rate 81 12/22/18 05:00 Respiratory Rate 18 12/22/18 08:24 Blood Pressure 142/99 12/22/18 05:00 O2 Sat by Pulse Oximetry (%) 96 12/22/18 08:24 Eyes: Yes: WNL, Conjunctiva Clear, EOM Intact HENT: Yes: WNL, Atraumatic, Normocephalic Neck: Yes: WNL, Supple, Trachea Midline Cardiovascular: Yes: WNL, Regular Rate and Rhythm Respiratory: Yes: WNL, Regular, CTA Bilaterally Gastrointestinal: Yes: WNL, Normal Bowel Sounds Genitourinary: Yes: WNL Musculoskeletal: Yes: WNL Extremities: Yes: WNL Edema: Yes Integumentary: Yes: WNL Neurological: Yes: WNL, Alert, Oriented ...Motor Strength: WNL Psychiatric: Yes: WNL Labs: CBC, BMP 12/21/18 05:30 12/21/18 05:30 INR, PTT INR 0.89 (0.83-1.09) 12/20/18 11:30 Assessment/Plan - Problems (1) Anemia Assessment/Plan: Hb also noted to be reduced in 2014; f/u workup. Code(s): D64.9 - ANEMIA, UNSPECIFIED (2) Body mass index (BMI) of 40.1 to 44.9 in adult Assessment/Plan: dietary consult while hospitalized would be on benefit. Code(s): Z68.41 - BODY MASS INDEX (BMI) 40.0-44.9, ADULT (3) Hypertensive emergency Assessment/Plan: Now on labetolol 200 mg bid; increase as needed, and consider 2nd antihypertensive agent, e.g. amlodipine or hydralazine. ECHO :limited study; groswsly normal LVEF; regional wall motion could not be assessed. BUN/Cr remainsmarkedly elevated; f/u with vice president network. F/u prior cardiac workup; pt is reluctant to undergo any further cardiac studies at this time, saying she has had no troubles with her heart. Code(s): I16.1 - HYPERTENSIVE EMERGENCY (4) Renal failure Code(s): N19 - UNSPECIFIED KIDNEY FAILURE Qualifiers: Renal failure chronicity: unspecified chronicity Qualified Code(s): N19 - Unspecified kidney failure (5) Elevated brain natriuretic peptide (BNP) level Code(s): R79.89 - OTHER SPECIFIED ABNORMAL FINDINGS OF BLOOD CHEMISTRY (6) [place] cardiac risk >20% in next 10 years Assessment/Plan: Will require coronary artery evaluation once BP is controlled, if not done recently (f/u prior cardiac w/u);depending on clinical course while here, may be able to be done as outpatient. Code(s): Z91.89 - OTH PERSONAL RISK FACTORS, NOT ELSEWHERE CLASSIFIED (7) Cigarette nicotine dependence Code(s): F17.210 - NICOTINE DEPENDENCE, CIGARETTES, UNCOMPLICATED
--- NOTE | 2018-12-22 10:24 | PN ---
Physical Exam: SUBJECTIVE: Patient seen and examined at the bedside. agrees to having her blood drawn. OBJECTIVE: more cooperative today. she is aware that she needs close monitoring of her renal function. per cardiology, can d/c tele monitoring. Patient is a 58 year old female with a past medical history of morbid obesity, hypertension, anemia, current daily smoker, DVT, CVA x2 w/ subsequent seizure disorder (maintained on Dilantin) presents from radiology department for evaluation after her health insurance was not accepted for scheduled b/l LE ultrasound. Patient also with recent fall at home. She was found to be in hypertensive urgency and acute renal failure on admission. Vital Signs Period Temp Pulse Resp BP Sys/Jones Pulse Ox Last 24 Hr 97.5 F-97.8 F 81-104 18-20 112-153/69-99 96-96 GENERAL: The patient is awake, alert, and fully oriented, in no acute distress. HEAD: Normal with no signs of trauma. EYES: PERRL, extraocular movements intact, sclera anicteric, conjunctiva clear. No ptosis. ENT: Ears normal, nares patent, oropharynx clear without exudates, moist mucous membranes. NECK: Trachea midline, full range of motion, supple. LUNGS: Breath sounds equal, clear to auscultation bilaterally, no wheezes HEART: Regular rate and rhythm ABDOMEN: obese abdomen EXTREMITIES lower ext non pitting edema, negative for dvt. NEUROLOGICAL: Normal speech, gait not observed. PSYCH: Normal mood, normal affect Active Medications Generic Name Dose Route Start Last Admin Trade Name Freq PRN Reason Stop Dose Admin Acetaminophen 1,000 mg 12/18/18 14:26 12/21/18 18:06 Tylenol - PO 1,000 mg Q8H PRN Administration PAIN LEVEL 4 - 6 Aspirin 81 mg 12/18/18 10:00 12/21/18 09:41 Ecotrin - PO 81 mg DAILY ELIJAH Administration Atorvastatin Calcium 40 mg 12/20/18 22:00 12/21/18 21:24 Lipitor - PO 40 mg HS ELIJAH Administration Cephalexin HCl 500 mg 12/18/18 10:00 12/21/18 21:24 Keflex - PO 500 mg BID ELIJAH Administration Docusate Sodium 100 mg 12/17/18 22:00 12/21/18 21:24 Colace - PO 100 mg BID ELIJAH Administration Heparin Sodium (Porcine) 5,000 unit 12/17/18 22:00 12/21/18 21:26 Heparin - SQ Not Given TID ELIJAH Labetalol HCl 200 mg 12/18/18 09:15 12/21/18 21:26 Normodyne - PO 200 mg BID ELIJAH Administration Pantoprazole Sodium 40 mg 12/18/18 10:00 12/21/18 09:41 Protonix - PO 40 mg DAILY ELIJAH Administration Phenytoin Sodium 200 mg 12/17/18 22:00 12/21/18 21:15 Dilantin - PO 200 mg BID ELIJAH Administration Senna 2 tab 12/17/18 22:00 12/21/18 21:25 Senna - PO 2 tab HS ELIJAH Administration ASSESSMENT/PLAN: Patient is a 58 year old female with a past medical history of morbid obesity, hypertension, anemia, current daily smoker, DVT, CVA x2 w/ subsequent seizure disorder (maintained on Dilantin) presents from radiology department for evaluation after her health insurance was not accepted for scheduled b/l LE ultrasound. Patient also with recent fall at home. She was found to be in hypertensive urgency and acute renal failure on admission. Card: Hypertension urgency. improved. on Labetalol 200mg bid. may need further uptitration if bp remains uncontrolled. monitor on tele. cardiology following. notes reviewed. patient may require coronary artery evaluation once BP is better controlled holding norvasc and lisonopril for renal failure. on beta blockers. quality assurance monitor final shows some PVCs Renal: Renal failure. renal consulted and following. worsening of renal function with a creat. 5.3, potassium is normal. per renal, patient may need dialysis kidney biopsy recommended Awaiting todays labs. patient with increased lower extremity edema. no shortness of breath. weights increasing. Vascular: lower ext edema. Cellulitis of right lower ext. On Keflex 500mg BID for RLE cellulitis. she is refusing IV placement currently and was initially on zosyn. Negative for DVT of bilateral lower extremities. Morbid obesity: started on lipitor for elevated lipid panel. hmga1c 4.7 dietary consulted for morbid obesity Neuro: Seizure disorder: on dilantin 200mg bid Heme: Anemia. likely due to chronic renal disease. iron studies with labs. trend h/h prophylaxis: heparin sc tid bowel regimen with colace and senna protonix 40mg daily Visit type - Emergency Visit Emergency Visit: Yes ED Registration Date: 12/17/18 Care time: The patient presented to the Emergency Department on the above date and was hospitalized for further evaluation of their emergent condition. - New Patient This patient is new to me today: No - Critical Care Critical Care patient: No - Discharge Referral Referred to [facility] Med P.C.: No
[2018-12-22 11:04] LABS: BASO % 1.8 % (0-2.0); HEMATOCRIT 25.6 % (32.4-45.2); HEMOGLOBIN 8.5 GM/dL (10.7-15.3); LYMPH % 19.3 % (8-40); MCH 27.7 pg (25.7-33.7); MCHC 33.1 g/dl (32.0-36.0); MEAN CELL VOLUME 83.7 fl (80-96); MEAN PLT VOLUME 6.7 fl (7.5-11.1); MONO % 5.3 % (3.8-10.2); NEUT % 66.6 % (42.8-82.8); PLATELET COUNT 313 K/MM3 (134-434); RBC 3.06 M/mm3 (3.60-5.2); RDW 17.4 % (11.6-15.6); WHITE BLOOD COUNT 7.4 K/mm3 (4.0-10.0)
[2018-12-22] MEDS: ACETAMINOPHEN 500 MG TABLET (FP) PO PRN (11:17)
[2018-12-22] MEDS: CEPHALEXIN MONOHYDRATE 500 MG CAPSULE (UD) PO SCH ×2 (11:18→21:38)
[2018-12-22] MEDS: ASPIRIN COATED 81 MG TABLET.EC PO SCH (11:18)
[2018-12-22] MEDS: LABETALOL HCL 200 MG TABLET (FP) PO SCH (11:18)
[2018-12-22] MEDS: PHENYTOIN NA EXTENDED 100 MG CAPSULE (FP) PO SCH ×2 (11:18→21:37)
[2018-12-22] MEDS: PANTOPRAZOLE 40 MG TABLET (FP) PO SCH (11:18)
[2018-12-22] MEDS: DOCUSATE SODIUM 100 MG CAPSULE (FP) PO SCH ×2 (11:18→21:37)
[2018-12-22 13:15] LABS: ALBUMIN 1.8 g/dl (3.4-5.0); ALK PHOS 197 U/L (45-117); ANION GAP 10 MMOL/L (8-16); BILIRUBIN,TOTAL 0.5 mg/dL (0.2-1); BLOOD UREA NITROGEN 47 mg/dL (7-18); CALCIUM 7.6 mg/dL (8.5-10.1); CHLORIDE 113 mmol/L (98-107); CO2 18 mmol/L (21-32); CREATININE 5.4 mg/dL (0.55-1.3); GLUCOSE,RANDOM 88 mg/dL (74-106); MAGNESIUM 1.8 mg/dL (1.8-2.4); POTASSIUM 3.9 mmol/L (3.5-5.1); SGOT/AST 35 U/L (15-37); SGPT/ALT 22 U/L (13-61); SODIUM 141 mmol/L (136-145); TOT PROT 5.2 g/dl (6.4-8.2)
[2018-12-22] MEDS: HEPARIN NA (PORCINE) 5,000 UNITS/ML 1ML VIAL SQ SCH ×2 (15:42→21:37)
--- NOTE | 2018-12-22 16:14 | PN ---
Progress Note, Physician History of Present Illness: Pt seen and examined at bedside. She is awake and alert. She complains of worsening edema of her legs. - Current Medication List Current Medications: Active Medications Acetaminophen (Tylenol -) 1,000 mg PO Q8H PRN PRN Reason: PAIN LEVEL 4 - 6 Last Admin: 12/22/18 11:17 Dose: 1,000 mg Aspirin (Ecotrin -) 81 mg PO DAILY [facility] Last Admin: 12/22/18 11:18 Dose: 81 mg Atorvastatin Calcium (Lipitor -) 40 mg PO HS [facility] Last Admin: 12/21/18 21:24 Dose: 40 mg Cephalexin HCl (Keflex -) 500 mg PO BID [facility] Last Admin: 12/22/18 11:18 Dose: 500 mg Docusate Sodium (Colace -) 100 mg PO BID [facility] Last Admin: 12/22/18 11:18 Dose: 100 mg Heparin Sodium (Porcine) (Heparin -) 5,000 unit SQ TID [facility] Last Admin: 12/22/18 15:42 Dose: Not Given Labetalol HCl (Normodyne -) 200 mg PO BID [facility] Last Admin: 12/22/18 11:18 Dose: 200 mg Pantoprazole Sodium (Protonix -) 40 mg PO DAILY [facility] Last Admin: 12/22/18 11:18 Dose: 40 mg Phenytoin Sodium (Dilantin -) 200 mg PO BID [facility] Last Admin: 12/22/18 11:18 Dose: 200 mg Senna (Senna -) 2 tab PO [facility] Last Admin: 12/21/18 21:25 Dose: 2 tab - Objective Vital Signs: Vital Signs Temperature 97.8 F 12/22/18 05:00 Pulse Rate 81 12/22/18 05:00 Respiratory Rate 18 12/22/18 08:24 Blood Pressure 142/99 12/22/18 05:00 O2 Sat by Pulse Oximetry (%) 96 12/22/18 08:24 Constitutional: Yes: Anxious Eyes: Yes: Conjunctiva Clear HENT: Yes: Atraumatic Neck: Yes: Supple Cardiovascular: Yes: S1, S2 Respiratory: Yes: CTA Bilaterally Gastrointestinal: Yes: Soft, Abdomen, Obese Genitourinary: Yes: WNL Musculoskeletal: Yes: WNL Edema: Yes Edema: LLE: 2+, RLE: 2+ Neurological: Yes: Oriented Psychiatric: Yes: Oriented Labs: CBC, BMP 12/22/18 10:34 12/22/18 10:48 INR, PTT INR 0.89 (0.83-1.09) 12/20/18 11:30 Problem List - Problems (1) Cellulitis of right lower extremity Code(s): L03.115 - CELLULITIS OF RIGHT LOWER LIMB (2) Renal failure Code(s): N19 - UNSPECIFIED KIDNEY FAILURE Qualifiers: Renal failure chronicity: unspecified chronicity Qualified Code(s): N19 - Unspecified kidney failure Assessment/Plan Current Medications Generic Name Dose Route Start Last Admin Trade Name Freq PRN Reason Stop Dose Admin Acetaminophen 1,000 mg 12/18/18 14:26 12/22/18 11:17 Tylenol - PO 1,000 mg Q8H PRN Administration PAIN LEVEL 4 - 6 Aspirin 81 mg 12/18/18 10:00 12/22/18 11:18 Ecotrin - PO 81 mg DAILY ELIJAH Administration Atorvastatin Calcium 40 mg 12/20/18 22:00 12/21/18 21:24 Lipitor - PO 40 mg HS ELIJAH Administration Cephalexin HCl 500 mg 12/18/18 10:00 12/22/18 11:18 Keflex - PO 500 mg BID ELIJAH Administration Docusate Sodium 100 mg 12/17/18 22:00 12/22/18 11:18 Colace - PO 100 mg BID ELIJAH Administration Heparin Sodium (Porcine) 5,000 unit 12/17/18 22:00 12/22/18 15:42 Heparin - SQ Not Given TID ELIJAH Labetalol HCl 200 mg 12/18/18 09:15 12/22/18 11:18 Normodyne - PO 200 mg BID ELIJAH Administration Pantoprazole Sodium 40 mg 12/18/18 10:00 12/22/18 11:18 Protonix - PO 40 mg DAILY ELIJAH Administration Phenytoin Sodium 200 mg 12/17/18 22:00 12/22/18 11:18 Dilantin - PO 200 mg BID ELIJAH Administration Senna 2 tab 12/17/18 22:00 12/21/18 21:25 Senna - PO 2 tab HS ELIJAH Administration Laboratory Tests 12/19/18 12/22/18 12/22/18 16:00 10:34 10:34 Hgb 8.5 L Protein/Creatinin Ratio 11.020 NICK M-Rigoberto NICOLE Screen c-ANCA Pending Proteinase 3 (PR3) Pending p-ANCA Pending Atypical p-ANCA Pending Myeloperoxidase Ab Pending Glomerular Base Memb Ab Hepatitis A Ab Total Hep Bs Antigen Hep Bs Antibody Hep B Core Total Ab HCV Quantitation 12/22/18 12/22/18 12/22/18 10:34 10:34 10:34 Hgb Protein/Creatinin Ratio NICK M-Rigoberto NICOLE Screen c-ANCA Proteinase 3 (PR3) p-ANCA Atypical p-ANCA Myeloperoxidase Ab Glomerular Base Memb Ab Pending Hepatitis A Ab Total Pending Hep Bs Antigen Pending Hep Bs Antibody Pending Hep B Core Total Ab Pending HCV Quantitation Pending 12/22/18 12/22/18 10:34 10:48 Hgb Protein/Creatinin Ratio NICK M-Rigoberto Pending NICOLE Screen Pending c-ANCA Proteinase 3 (PR3) p-ANCA Atypical p-ANCA Myeloperoxidase Ab Glomerular Base Memb Ab Hepatitis A Ab Total Hep Bs Antigen Hep Bs Antibody Hep B Core Total Ab HCV Quantitation Impression 1. SOHAIL 2. lower ext edema 3. cellulitis 4. HTN 5. arthritis 6. nephrotic range proteinura Plan - follow renal workup - as of now she is refusing biopsy - monitor renal function - avoid nsaids - increase dose of labetolol - daughter Mayo [phone]
[2018-12-22] MEDS ORDERED: FUROSEMIDE 40 MG TABLET (FP) PO ONE ×2 (16:15→17:30)
[2018-12-22 21:11] LABS: URINE UREA NITROGEN 316 mg/dL (350-1000)
[2018-12-22] MEDS: LABETALOL HCL 100 MG TABLET (FP) PO SCH (21:38)
[2018-12-22] MEDS: ATORVASTATIN CA 40 MG TABLET (FP) PO SCH (21:38)
[2018-12-22] MEDS: SENNOSIDES 8.6MG TABLET (FP) PO SCH (21:38)
[2018-12-23 05:11] LABS: SERUM IRON SATURATION 37 % (15-55); TOTAL IRON BINDING CAPACITY 211 ug/dL (250-450); UIBC 132 ug/dL (131-425)
[2018-12-23] MEDS: HEPARIN NA (PORCINE) 5,000 UNITS/ML 1ML VIAL SQ SCH ×3 (05:46→22:06)
[2018-12-23] MEDS: LABETALOL HCL 100 MG TABLET (FP) PO SCH (09:44)
[2018-12-23] MEDS: PHENYTOIN NA EXTENDED 100 MG CAPSULE (FP) PO SCH ×2 (09:44→22:07)
[2018-12-23] MEDS: ASPIRIN COATED 81 MG TABLET.EC PO SCH (09:44)
[2018-12-23] MEDS: CEPHALEXIN MONOHYDRATE 500 MG CAPSULE (UD) PO SCH ×2 (09:44→22:06)
[2018-12-23] MEDS: DOCUSATE SODIUM 100 MG CAPSULE (FP) PO SCH ×2 (09:44→22:07)
[2018-12-23] MEDS: PANTOPRAZOLE 40 MG TABLET (FP) PO SCH (09:44)
[2018-12-23 11:29] VITALS: BMI 45.9
--- NOTE | 2018-12-23 13:28 | PN ---
Progress Note, Physician History of Present Illness: Pt is a 58 yr old woman with PMH of HTN, s/p CVA x 2 (2017 and 2018), morbid obesity, daily cigarette smoker, chronic arthritis, who is presenting from imaging at [facility] with complaints of b/l LE edema x 1 month, difficulty ambulating 2/2 pain and neuropathy. She has also had intermittent productive cough of yellowish sputum over the past month. The pt has no current complaints. She denies any recent travel, surgery, and estrogen use. Pt denies any fevers/chills, headache, vision changes , syncope, chest pain, palpitations, SOB, nausea/vomiting, abdominal pain, urinary symptoms, or diarrhea/constipation. s/p fall about 48 hours ago while pulling up her pants in the bathroom; pt lost her balance, landed on the tile floor, hitting right side of head, but did not want to be evaluated at that time. No LOC. No reported hx of cardiac disease (though sent by sole stainer for labs and bilateral LE US today). Hx poor compliance with medications; did not take morning meds today. Her BP was found to be extremely high, and BUN/Cr also elevated. She was started on labetolol. - Current Medication List Current Medications: Active Medications Acetaminophen (Tylenol -) 1,000 mg PO Q8H PRN PRN Reason: PAIN LEVEL 4 - 6 Last Admin: 12/22/18 11:17 Dose: 1,000 mg Aspirin (Ecotrin -) 81 mg PO DAILY [facility] Last Admin: 12/23/18 09:44 Dose: 81 mg Atorvastatin Calcium (Lipitor -) 40 mg PO HS [facility] Last Admin: 12/22/18 21:38 Dose: 40 mg Cephalexin HCl (Keflex -) 500 mg PO BID [facility] Last Admin: 12/23/18 09:44 Dose: 500 mg Docusate Sodium (Colace -) 100 mg PO BID [facility] Last Admin: 12/23/18 09:44 Dose: 100 mg Heparin Sodium (Porcine) (Heparin -) 5,000 unit SQ TID [facility] Last Admin: 12/23/18 05:46 Dose: Not Given Labetalol HCl (Normodyne -) 300 mg PO BID [facility] Last Admin: 12/23/18 09:44 Dose: 300 mg Pantoprazole Sodium (Protonix -) 40 mg PO DAILY [facility] Last Admin: 12/23/18 09:44 Dose: 40 mg Phenytoin Sodium (Dilantin -) 200 mg PO BID [facility] Last Admin: 12/23/18 09:44 Dose: 200 mg Senna (Senna -) 2 tab PO HS [facility] Last Admin: 12/22/18 21:38 Dose: 2 tab - Objective Vital Signs: Vital Signs Temperature 98.7 F 12/23/18 10:00 Pulse Rate 85 12/23/18 10:00 Respiratory Rate 20 12/23/18 10:00 Blood Pressure 156/98 12/23/18 10:00 O2 Sat by Pulse Oximetry (%) 96 12/23/18 09:00 Eyes: Yes: WNL, Conjunctiva Clear, EOM Intact HENT: Yes: WNL, Atraumatic, Normocephalic Neck: Yes: WNL, Supple, Trachea Midline Cardiovascular: Yes: WNL, Regular Rate and Rhythm Respiratory: Yes: WNL, Regular, CTA Bilaterally Gastrointestinal: Yes: WNL, Normal Bowel Sounds Genitourinary: Yes: WNL Musculoskeletal: Yes: WNL Extremities: Yes: WNL Edema: Yes Edema: LLE: 2+, RLE: 2+ Integumentary: Yes: WNL Neurological: Yes: WNL, Alert, Oriented ...Motor Strength: WNL Psychiatric: Yes: WNL Labs: CBC, BMP 12/22/18 10:34 12/22/18 10:48 INR, PTT INR 0.89 (0.83-1.09) 12/20/18 11:30 Assessment/Plan - Problems (1) Anemia Assessment/Plan: Hb also noted to be reduced in 2013; f/u workup. Code(s): D64.9 - ANEMIA, UNSPECIFIED (2) Body mass index (BMI) of 40.1 to 44.9 in adult Assessment/Plan: dietary consult while hospitalized would be on benefit. Code(s): Z68.41 - BODY MASS INDEX (BMI) 40.0-44.9, ADULT (3) Hypertensive emergency Assessment/Plan: Now on labetolol 200 mg bid; increase as needed, and consider 2nd antihypertensive agent, e.g. amlodipine or hydralazine. ECHO :limited study; groswsly normal LVEF; regional wall motion could not be assessed. BUN/Cr remainsmarkedly elevated; f/u with mushroom packer. F/u prior cardiac workup; pt is reluctant to undergo any further cardiac studies at this time, saying she has had no troubles with her heart. Code(s): I16.1 - HYPERTENSIVE EMERGENCY (4) Renal failure Code(s): N19 - UNSPECIFIED KIDNEY FAILURE Qualifiers: Renal failure chronicity: unspecified chronicity Qualified Code(s): N19 - Unspecified kidney failure (5) Elevated brain natriuretic peptide (BNP) level Code(s): R79.89 - OTHER SPECIFIED ABNORMAL FINDINGS OF BLOOD CHEMISTRY (6) [place] cardiac risk >20% in next 10 years Assessment/Plan: Will require coronary artery evaluation once BP is controlled, if not done recently (f/u prior cardiac w/u);depending on clinical course while here, may be able to be done as outpatient. Code(s): Z91.89 - OTH PERSONAL RISK FACTORS, NOT ELSEWHERE CLASSIFIED (7) Cigarette nicotine dependence Code(s): F17.210 - NICOTINE DEPENDENCE, CIGARETTES, UNCOMPLICATED
[2018-12-23 14:14] LABS: HBSAG SCREEN Negative (Negative); HEP B CORE AB, TOT Negative (Negative)
--- NOTE | 2018-12-23 15:16 | PN ---
Physical Exam: SUBJECTIVE: Patient seen and examined at the bedside. OBJECTIVE: started on Lasix 80mg PO, but lower ext edema remain swollen (vascular study negative for dvt). Patient is a 58 year old female with a past medical history of morbid obesity, hypertension, anemia, current daily smoker, DVT, CVA x2 w/ subsequent seizure disorder (maintained on Dilantin) presents from radiology department for evaluation after her health insurance was not accepted for scheduled b/l LE ultrasound. Patient also with recent fall at home. She was found to be in hypertensive urgency and acute renal failure on admission. Period Temp Pulse Resp BP Sys/Jones Pulse Ox Last 24 Hr 97.4 F-98.7 F 85-92 18-20 139-156/91-106 96-97 GENERAL: The patient is awake, alert, and fully oriented, in no acute distress. HEAD: Normal with no signs of trauma. EYES: PERRL, extraocular movements intact, sclera anicteric, conjunctiva clear. No ptosis. ENT: Ears normal, nares patent, oropharynx clear without exudates, moist mucous membranes. NECK: Trachea midline, full range of motion, supple. LUNGS: Breath sounds equal, clear to auscultation bilaterally, no wheezes HEART: Regular rate and rhythm ABDOMEN: obese abdomen EXTREMITIES lower ext non pitting edema, negative for dvt. NEUROLOGICAL: Normal speech, gait not observed. PSYCH: Normal mood, normal affect Laboratory Results - last 24 hr 12/22/18 12/22/18 12/22/18 10:34 10:34 11:45 Iron 79 TIBC 211 L Iron Saturation 37 Urine Osmolality 240 L Ur Random Sodium 26 L Ur Random Urea Nitrogn 316 L Hepatitis A Ab Total Negative Hep Bs Antigen Negative Hep Bs Antibody Non reactive Hep B Core Total Ab Negative Active Medications Generic Name Dose Route Start Last Admin Trade Name Freq PRN Reason Stop Dose Admin Acetaminophen 1,000 mg 12/18/18 14:26 12/22/18 11:17 Tylenol - PO 1,000 mg Q8H PRN Administration PAIN LEVEL 4 - 6 Aspirin 81 mg 12/18/18 10:00 12/23/18 09:44 Ecotrin - PO 81 mg DAILY ELIJAH Administration Atorvastatin Calcium 40 mg 12/20/18 22:00 12/22/18 21:38 Lipitor - PO 40 mg HS ELIJAH Administration Cephalexin HCl 500 mg 12/18/18 10:00 12/23/18 09:44 Keflex - PO 500 mg BID ELIJAH Administration Docusate Sodium 100 mg 12/17/18 22:00 12/23/18 09:44 Colace - PO 100 mg BID ELIJAH Administration Heparin Sodium (Porcine) 5,000 unit 12/17/18 22:00 12/23/18 13:53 Heparin - SQ Not Given TID ELIJAH Labetalol HCl 300 mg 12/22/18 16:15 12/23/18 09:44 Normodyne - PO 300 mg BID ELIJAH Administration Pantoprazole Sodium 40 mg 12/18/18 10:00 12/23/18 09:44 Protonix - PO 40 mg DAILY ELIJAH Administration Phenytoin Sodium 200 mg 12/17/18 22:00 12/23/18 09:44 Dilantin - PO 200 mg BID ELIJAH Administration Senna 2 tab 12/17/18 22:00 12/22/18 21:38 Senna - PO 2 tab HS ELIJAH Administration ASSESSMENT/PLAN: Patient is a 58 year old female with a past medical history of morbid obesity, hypertension, anemia, current daily smoker, DVT, CVA x2 w/ subsequent seizure disorder (maintained on Dilantin) presents from radiology department for evaluation after her health insurance was not accepted for scheduled b/l LE ultrasound. Patient also with recent fall at home. She was found to be in hypertensive urgency and acute renal failure on admission. Card: Hypertension urgency. improved. on Labetalol 200mg bid. may need further uptitration if bp remains uncontrolled. monitor on tele. cardiology following. notes reviewed. patient may require coronary artery evaluation once BP is better controlled holding norvasc and lisonopril for renal failure. on beta blockers. Renal: Renal failure. renal consulted and following. worsening of renal function with a creat. 5.3, potassium is normal. per renal, patient may need dialysis and kidney biopsy recommended but patient is refusing both. Refused labs today, repepat labs in a.m. patient with increased lower extremity edema. no shortness of breath. weights increasing. started on lasix per renal. Vascular: lower ext edema. Cellulitis of right lower ext. On Keflex 500mg BID for RLE cellulitis (started 12/18/18). she is refusing IV placement currently and was initially on zosyn. Negative for DVT of bilateral lower extremities. Morbid obesity: started on lipitor for elevated lipid panel. hmga1c 4.7 dietary consulted for morbid obesity Neuro: Seizure disorder: on dilantin 200mg bid Heme: Anemia. likely due to chronic renal disease. started iron therapy prophylaxis: heparin sc tid bowel regimen with colace and senna protonix 40mg daily disposition: discharge to rehab once cleared by renal. i Visit type - Emergency Visit Emergency Visit: Yes ED Registration Date: 12/17/18 Care time: The patient presented to the Emergency Department on the above date and was hospitalized for further evaluation of their emergent condition. - New Patient This patient is new to me today: No - Critical Care Critical Care patient: No - Discharge Referral Referred to [facility] Med P.C.: No
[2018-12-23] MEDS: ACETAMINOPHEN 500 MG TABLET (FP) PO PRN (15:26)
[2018-12-23] MEDS ORDERED: FUROSEMIDE 40 MG TABLET (FP) PO ONE (17:57)
--- NOTE | 2018-12-23 18:00 | PN ---
Progress Note, Physician History of Present Illness: Pt seen and examined at bedside. She is awake and alert. She denies shortness of breath. She complains of lower ext edema. - Current Medication List Current Medications: Active Medications Acetaminophen (Tylenol -) 1,000 mg PO Q8H PRN PRN Reason: PAIN LEVEL 4 - 6 Last Admin: 12/23/18 15:26 Dose: 1,000 mg Aspirin (Ecotrin -) 81 mg PO DAILY [facility] Last Admin: 12/23/18 09:44 Dose: 81 mg Atorvastatin Calcium (Lipitor -) 40 mg PO HS [facility] Last Admin: 12/22/18 21:38 Dose: 40 mg Cephalexin HCl (Keflex -) 500 mg PO BID [facility] Last Admin: 12/23/18 09:44 Dose: 500 mg Docusate Sodium (Colace -) 100 mg PO BID [facility] Last Admin: 12/23/18 09:44 Dose: 100 mg Heparin Sodium (Porcine) (Heparin -) 5,000 unit SQ TID [facility] Last Admin: 12/23/18 13:53 Dose: Not Given Labetalol HCl (Normodyne -) 300 mg PO BID [facility] Last Admin: 12/23/18 09:44 Dose: 300 mg Pantoprazole Sodium (Protonix -) 40 mg PO DAILY [facility] Last Admin: 12/23/18 09:44 Dose: 40 mg Phenytoin Sodium (Dilantin -) 200 mg PO BID [facility] Last Admin: 12/23/18 09:44 Dose: 200 mg Senna (Senna -) 2 tab PO [facility] Last Admin: 12/22/18 21:38 Dose: 2 tab - Objective Vital Signs: Vital Signs Temperature 98.5 F 12/23/18 16:30 Pulse Rate 90 12/23/18 16:30 Respiratory Rate 20 12/23/18 16:30 Blood Pressure 162/96 12/23/18 16:30 O2 Sat by Pulse Oximetry (%) 96 12/23/18 09:00 Constitutional: Yes: Calm Eyes: Yes: Conjunctiva Clear HENT: Yes: Atraumatic Cardiovascular: Yes: S1, S2 Respiratory: Yes: CTA Bilaterally Gastrointestinal: Yes: Soft, Abdomen, Obese Genitourinary: Yes: WNL Musculoskeletal: Yes: WNL Edema: Yes Edema: LLE: 2+, RLE: 2+ Neurological: Yes: Oriented Psychiatric: Yes: Oriented Labs: CBC, BMP 12/22/18 10:34 12/22/18 10:48 INR, PTT INR 0.89 (0.83-1.09) 12/20/18 11:30 Problem List - Problems (1) Cellulitis of right lower extremity Code(s): L03.115 - CELLULITIS OF RIGHT LOWER LIMB (2) Renal failure Code(s): N19 - UNSPECIFIED KIDNEY FAILURE Qualifiers: Renal failure chronicity: unspecified chronicity Qualified Code(s): N19 - Unspecified kidney failure Assessment/Plan Current Medications Generic Name Dose Route Start Last Admin Trade Name Freq PRN Reason Stop Dose Admin Acetaminophen 1,000 mg 12/18/18 14:26 12/23/18 15:26 Tylenol - PO 1,000 mg Q8H PRN Administration PAIN LEVEL 4 - 6 Aspirin 81 mg 12/18/18 10:00 12/23/18 09:44 Ecotrin - PO 81 mg DAILY [facility] Administration Atorvastatin Calcium 40 mg 12/20/18 22:00 12/22/18 21:38 Lipitor - PO 40 mg HS [facility] Administration Cephalexin HCl 500 mg 12/18/18 10:00 12/23/18 09:44 Keflex - PO 500 mg BID [facility] Administration Docusate Sodium 100 mg 12/17/18 22:00 12/23/18 09:44 Colace - PO 100 mg BID [facility] Administration Heparin Sodium (Porcine) 5,000 unit 12/17/18 22:00 12/23/18 13:53 Heparin - SQ Not Given TID [facility] Labetalol HCl 300 mg 12/22/18 16:15 12/23/18 09:44 Normodyne - PO 300 mg BID [facility] Administration Pantoprazole Sodium 40 mg 12/18/18 10:00 12/23/18 09:44 Protonix - PO 40 mg DAILY [facility] Administration Phenytoin Sodium 200 mg 12/17/18 22:00 12/23/18 09:44 Dilantin - PO 200 mg BID [facility] Administration Senna 2 tab 12/17/18 22:00 12/22/18 21:38 Senna - PO 2 tab HS [facility] Administration Laboratory Tests 12/22/18 12/22/18 12/22/18 10:34 10:34 10:34 c-ANCA Pending Proteinase 3 (PR3) Pending p-ANCA Pending Atypical p-ANCA Pending Myeloperoxidase Ab Pending Glomerular Base Memb Ab Pending Hepatitis A Ab Total Negative Hep Bs Antigen Negative Hep Bs Antibody Non reactive Hep B Core Total Ab Negative Impression 1. SOHAIL 2. lower ext edema 3. cellulitis 4. HTN 5. arthritis 6. nephrotic range proteinura Plan - had a long talk with pt, she does not want a kidney biopsy and says that she does not want HD therapy - will give a dose of lasix - repeat labs in am - increase dose of labetolol - daughter Mayo [phone]
[2018-12-23] MEDS: LABETALOL HCL 200 MG TABLET (FP) PO SCH (22:06)
[2018-12-23] MEDS: ATORVASTATIN CA 40 MG TABLET (FP) PO SCH (22:06)
[2018-12-23] MEDS: SENNOSIDES 8.6MG TABLET (FP) PO SCH (22:07)
[2018-12-24] MEDS: HEPARIN NA (PORCINE) 5,000 UNITS/ML 1ML VIAL SQ SCH (05:27)
[2018-12-24] MEDS ORDERED: ACETAMINOPHEN 500 MG TABLET (FP) PO PRN (07:40)
[2018-12-24 07:43] LABS: BASO % 1.7 % (0-2.0); EOS % 6.9 % (0-4.5); HEMATOCRIT 23.8 % (32.4-45.2); HEMOGLOBIN 7.8 GM/dL (10.7-15.3); LYMPH % 21.7 % (8-40); MCH 27.7 pg (25.7-33.7); MCHC 32.7 g/dl (32.0-36.0); MEAN CELL VOLUME 84.7 fl (80-96); MEAN PLT VOLUME 6.7 fl (7.5-11.1); MONO % 6.4 % (3.8-10.2); NEUT % 63.3 % (42.8-82.8); PLATELET COUNT 331 K/MM3 (134-434); RBC 2.81 M/mm3 (3.60-5.2); RDW 17.6 % (11.6-15.6); WHITE BLOOD COUNT 7.7 K/mm3 (4.0-10.0)
[2018-12-24 09:02] LABS: ANION GAP 11 MMOL/L (8-16); BLOOD UREA NITROGEN 49 mg/dL (7-18); CALCIUM 7.2 mg/dL (8.5-10.1); CHLORIDE 114 mmol/L (98-107); CO2 18 mmol/L (21-32); CREATININE 5.5 mg/dL (0.55-1.3); GLUCOSE,RANDOM 85 mg/dL (74-106); POTASSIUM 3.8 mmol/L (3.5-5.1); SODIUM 143 mmol/L (136-145)
[2018-12-24] MEDS: FERROUS SO4 325 MG TABLET (FP) PO SCH ×2 (09:20→17:50)
[2018-12-24] MEDS: LABETALOL HCL 200 MG TABLET (FP) PO SCH (09:20)
[2018-12-24] MEDS ORDERED: PANTOPRAZOLE 40 MG TABLET (FP) PO SCH (10:00)
[2018-12-24] MEDS ORDERED: PHENYTOIN NA EXTENDED 100 MG CAPSULE (FP) PO SCH (10:00)
[2018-12-24] MEDS ORDERED: CEPHALEXIN MONOHYDRATE 500 MG CAPSULE (UD) PO SCH (10:00)
[2018-12-24] MEDS ORDERED: DOCUSATE SODIUM 100 MG CAPSULE (FP) PO SCH (10:00)
[2018-12-24] MEDS ORDERED: FUROSEMIDE 40 MG TABLET (FP) PO ONE (10:00)
[2018-12-24] MEDS ORDERED: ASPIRIN COATED 81 MG TABLET.EC PO SCH (10:00)
[2018-12-24] MEDS ORDERED: HEPARIN NA (PORCINE) 5,000 UNITS/ML 1ML VIAL SQ SCH (14:00)
--- NOTE | 2018-12-24 15:52 | PN ---
Progress Note, Physician Chief Complaint: Pt A&Ox3; denies chest pain or dyspnea History of Present Illness: Pt is a 58 yr old black woman with PMH of HTN, s/p CVA x 2 (2017 and 2018), morbid obesity, daily cigarette smoker, chronic arthritis, who is presenting from imaging at [facility] with complaints of b/l LE edema x 1 month, difficulty ambulating 2/2 pain and neuropathy. She has also had intermittent productive cough of yellowish sputum over the past month. The pt has no current complaints. She denies any recent travel, surgery, and estrogen use. Pt denies any fevers/chills, headache, vision changes , syncope, chest pain, palpitations, SOB, nausea/vomiting, abdominal pain, urinary symptoms, or diarrhea/constipation. s/p fall about 48 hours ago while pulling up her pants in the bathroom; pt lost her balance, landed on the tile floor, hitting right side of head, but did not want to be evaluated at that time. No LOC. No reported hx of cardiac disease (though sent by genetics teacher for labs and bilateral LE US today). Hx poor compliance with medications; did not take morning meds today. Her BP was found to be extremely high, and BUN/Cr also elevated. She was started on labetolol. - Current Medication List Current Medications: Active Medications Acetaminophen (Tylenol -) 1,000 mg PO Q8H PRN PRN Reason: PAIN LEVEL 4 - 6 Last Admin: 12/24/18 12:45 Dose: 1,000 mg Aspirin (Ecotrin -) 81 mg PO DAILY [facility] Last Admin: 12/24/18 09:19 Dose: 81 mg Atorvastatin Calcium (Lipitor -) 40 mg PO HS [facility] Cephalexin HCl (Keflex -) 500 mg PO BID [facility] Last Admin: 12/24/18 09:20 Dose: 500 mg Docusate Sodium (Colace -) 100 mg PO BID [facility] Last Admin: 12/24/18 09:20 Dose: 100 mg Ferrous Sulfate (Feosol -) 325 mg PO BIDWM [facility] Last Admin: 12/24/18 09:20 Dose: 325 mg Heparin Sodium (Porcine) (Heparin -) 5,000 unit SQ TID [facility] Last Admin: 12/24/18 14:36 Dose: Not Given Labetalol HCl (Normodyne -) 400 mg PO BID [facility] Last Admin: 12/24/18 09:20 Dose: 400 mg Pantoprazole Sodium (Protonix -) 40 mg PO DAILY [facility] Last Admin: 12/24/18 09:19 Dose: 40 mg Phenytoin Sodium (Dilantin -) 200 mg PO BID [facility] Last Admin: 12/24/18 09:20 Dose: 200 mg Senna (Senna -) 2 tab PO [facility] - Objective Vital Signs: Vital Signs Temperature 97.4 F L 12/24/18 15:09 Pulse Rate 79 12/24/18 15:09 Respiratory Rate 18 12/24/18 15:09 Blood Pressure 154/101 H 12/24/18 15:09 O2 Sat by Pulse Oximetry (%) 96 12/23/18 21:00 Labs: CBC, BMP 12/24/18 06:30 12/24/18 06:30 INR, PTT INR 0.89 (0.83-1.09) 12/20/18 11:30 Abnormal Lab Results 12/22/18 12/23/18 12/23/18 10:34 16:26 16:30 RBC Hgb Hct RDW MPV Eosinophils % Chloride Carbon Dioxide BUN Creatinine Calcium Total Protein (PEP) 4.9 L Albumin (PEP) 2.1 L U Random Total Protein 1638.2 H Ur Random Sodium 25 L 12/24/18 12/24/18 06:30 06:30 RBC 2.81 L Hgb 7.8 L Hct 23.8 L RDW 17.6 H MPV 6.7 L Eosinophils % 6.9 H Chloride 114 H Carbon Dioxide 18 L BUN 49 H Creatinine 5.5 H Calcium 7.2 L Total Protein (PEP) Albumin (PEP) U Random Total Protein Ur Random Sodium Problem List - Problems (1) Anemia Assessment/Plan: Hb also noted to be reduced in 2014; f/u workup. Code(s): D64.9 - ANEMIA, UNSPECIFIED (2) Body mass index (BMI) of 40.1 to 44.9 in adult Assessment/Plan: dietary consult while hospitalized would be on benefit. Code(s): Z68.41 - BODY MASS INDEX (BMI) 40.0-44.9, ADULT (3) Hypertensive emergency Assessment/Plan: Now on labetolol 400 mg bid; BP remains elevated. Start amlodipine 5 mg qd. ECHO :limited study; grossly normal LVEF; regional wall motion could not be assessed. BUN/Cr remains markedly elevated; f/u with malt loader. F/u prior cardiac workup; pt is reluctant to undergo any further cardiac studies at this time, saying she has had no troubles with her heart. Code(s): I16.1 - HYPERTENSIVE EMERGENCY (4) Renal failure Assessment/Plan: BUN/Cr abnormal and increasing. Pt says she does not want hemodialysis. F/u with malt loader. Code(s): N19 - UNSPECIFIED KIDNEY FAILURE Qualifiers: Renal failure chronicity: unspecified chronicity Qualified Code(s): N19 - Unspecified kidney failure (5) Elevated brain natriuretic peptide (BNP) level Code(s): R79.89 - OTHER SPECIFIED ABNORMAL FINDINGS OF BLOOD CHEMISTRY (6) [place] cardiac risk >20% in next 10 years Code(s): Z91.89 - [facility] PERSONAL RISK FACTORS, NOT ELSEWHERE CLASSIFIED (7) Cigarette nicotine dependence Code(s): F17.210 - NICOTINE DEPENDENCE, CIGARETTES, UNCOMPLICATED
[2018-12-24] MEDS ORDERED: amLODIPine BESYLATE 5 MG TABLET (FP) PO SCH (16:00)
--- NOTE | 2018-12-24 17:00 | PN ---
Progress Note, Physician History of Present Illness: Pt seen and examined at bedside. She is awake and alert. She denies shortness of breath. She complains of edema. - Current Medication List Current Medications: Active Medications Acetaminophen (Tylenol -) 1,000 mg PO Q8H PRN PRN Reason: PAIN LEVEL 4 - 6 Last Admin: 12/24/18 12:45 Dose: 1,000 mg Amlodipine Besylate (Norvasc -) 5 mg PO DAILY [facility] Aspirin (Ecotrin -) 81 mg PO DAILY [facility] Last Admin: 12/24/18 09:19 Dose: 81 mg Atorvastatin Calcium (Lipitor -) 40 mg PO HS [facility] Cephalexin HCl (Keflex -) 500 mg PO BID [facility] Last Admin: 12/24/18 09:20 Dose: 500 mg Docusate Sodium (Colace -) 100 mg PO BID [facility] Last Admin: 12/24/18 09:20 Dose: 100 mg Ferrous Sulfate (Feosol -) 325 mg PO BIDWM [facility] Last Admin: 12/24/18 09:20 Dose: 325 mg Heparin Sodium (Porcine) (Heparin -) 5,000 unit SQ TID [facility] Last Admin: 12/24/18 14:36 Dose: Not Given Labetalol HCl (Normodyne -) 400 mg PO BID [facility] Last Admin: 12/24/18 09:20 Dose: 400 mg Pantoprazole Sodium (Protonix -) 40 mg PO DAILY [facility] Last Admin: 12/24/18 09:19 Dose: 40 mg Phenytoin Sodium (Dilantin -) 200 mg PO BID [facility] Last Admin: 12/24/18 09:20 Dose: 200 mg Senna (Senna -) 2 tab PO [facility] - Objective Vital Signs: Vital Signs Temperature 97.4 F L 12/24/18 15:09 Pulse Rate 79 12/24/18 15:09 Respiratory Rate 18 12/24/18 15:09 Blood Pressure 154/101 H 12/24/18 15:09 O2 Sat by Pulse Oximetry (%) 96 12/23/18 21:00 Constitutional: Yes: Calm Eyes: Yes: Conjunctiva Clear HENT: Yes: Atraumatic Neck: Yes: Supple Cardiovascular: Yes: S1, S2 Respiratory: Yes: CTA Bilaterally Gastrointestinal: Yes: Soft Genitourinary: Yes: WNL Musculoskeletal: Yes: WNL Edema: Yes Edema: LLE: 2+, RLE: 2+ Neurological: Yes: Oriented Psychiatric: Yes: Oriented Labs: CBC, BMP 12/24/18 06:30 12/24/18 06:30 INR, PTT INR 0.89 (0.83-1.09) 12/20/18 11:30 Problem List - Problems (1) Cellulitis of right lower extremity Code(s): L03.115 - CELLULITIS OF RIGHT LOWER LIMB (2) Renal failure Code(s): N19 - UNSPECIFIED KIDNEY FAILURE Qualifiers: Renal failure chronicity: unspecified chronicity Qualified Code(s): N19 - Unspecified kidney failure Assessment/Plan Current Medications Generic Name Dose Route Start Last Admin Trade Name Freq PRN Reason Stop Dose Admin Acetaminophen 1,000 mg 12/24/18 07:40 12/24/18 12:45 Tylenol - PO 1,000 mg Q8H PRN Administration PAIN LEVEL 4 - 6 Amlodipine Besylate 5 mg 12/24/18 16:00 Norvasc - PO DAILY [facility] Aspirin 81 mg 12/24/18 10:00 12/24/18 09:19 Ecotrin - PO 81 mg DAILY [facility] Administration Atorvastatin Calcium 40 mg 12/24/18 22:00 Lipitor - PO HS [facility] Cephalexin HCl 500 mg 12/24/18 10:00 12/24/18 09:20 Keflex - PO 500 mg BID [facility] Administration Docusate Sodium 100 mg 12/24/18 10:00 12/24/18 09:20 Colace - PO 100 mg BID [facility] Administration Ferrous Sulfate 325 mg 12/24/18 08:00 12/24/18 09:20 Feosol - PO 325 mg BIDWM [facility] Administration Heparin Sodium (Porcine) 5,000 unit 12/24/18 14:00 12/24/18 14:36 Heparin - SQ Not Given TID [facility] Labetalol HCl 400 mg 12/23/18 22:00 12/24/18 09:20 Normodyne - PO 400 mg BID [facility] Administration Pantoprazole Sodium 40 mg 12/24/18 10:00 12/24/18 09:19 Protonix - PO 40 mg DAILY [facility] Administration Phenytoin Sodium 200 mg 12/24/18 10:00 12/24/18 09:20 Dilantin - PO 200 mg BID [facility] Administration Senna 2 tab 12/24/18 22:00 Senna - PO HS [facility] Laboratory Tests 12/22/18 12/22/18 12/22/18 10:34 10:34 10:34 NICK M-Rigoberto Not observed NICOLE Screen c-ANCA Pending Proteinase 3 (PR3) Pending p-ANCA Pending Atypical p-ANCA Pending Myeloperoxidase Ab Pending Glomerular Base Memb Ab Pending 12/22/18 10:48 NICK M-Rigoberto NICOLE Screen Pending c-ANCA Proteinase 3 (PR3) p-ANCA Atypical p-ANCA Myeloperoxidase Ab Glomerular Base Memb Ab Impression 1. SOHAIL 2. lower ext edema 3. cellulitis 4. HTN 5. arthritis 6. nephrotic range proteinura 7. obesity Plan - no new labs - will give a dose of lasix today - monitor renal function in rehab - cont lasix in rehab - called daughter Mayo [phone] and spoke to her at length. Pt has been resistant to treatment. She will talk to her. Pt says that she will consider doing a biopsy and she agrees to hold aspirin. I explained the risk of bleeding and risk of complications. - may need HD sooner rather than later - will need vascular eval - it has been difficult to manage her secondary to non compliance
[2018-12-24 17:06] VITALS: BP 157/97; PULSE 77; TEMP 98
[2018-12-24 17:12] LABS: ATYPICAL pANCA <1:20 titer (Neg:<1:20); C-ANCA <1:20 titer (Neg:<1:20); P-ANCA <1:20 titer (Neg:<1:20)
--- NOTE | 2018-12-24 17:14 | DS ---
Physical Examination Vital Signs: Vital Signs Temperature 97.4 F L 12/24/18 15:09 Pulse Rate 79 12/24/18 15:09 Respiratory Rate 18 12/24/18 15:09 Blood Pressure 154/101 H 12/24/18 15:09 O2 Sat by Pulse Oximetry (%) 96 12/23/18 21:00 Findings/Remarks: Seen and examined today, did not want to do kidney biopsy, but now has changed her mind. no acute events overnight Constitutional: Yes: Well Nourished, No Distress, Calm Cardiovascular: Yes: WNL, Regular Rate and Rhythm Respiratory: Yes: WNL, Regular, CTA Bilaterally Gastrointestinal: Yes: WNL, Normal Bowel Sounds, Soft, Abdomen, Obese Musculoskeletal: Yes: WNL Extremities: Yes: WNL Edema: Yes Psychiatric: Yes: WNL, Alert, Oriented Labs: CBC, BMP 12/24/18 06:30 12/24/18 06:30 Discharge Summary Reason For Visit: EDEMA OF LOWER EXTERITY, CHRONIC KIDNEY DISEASE Current Active Problems Anemia (Acute) Body mass index (BMI) of 40.1 to 44.9 in adult (Acute) Cellulitis of right lower extremity (Acute) Cigarette nicotine dependence (Acute) Elevated brain natriuretic peptide (BNP) level (Acute) [place] cardiac risk >20% in next 10 years (Acute) Hypertensive emergency (Acute) Lower extremity edema (Acute) Prophylactic measure (Acute) Renal failure (Acute) Seizure disorder (Acute) Hospital Course: 58 year old female with a past medical history of morbid obesity, hypertension, anemia, current daily smoker, DVT, CVA x2 w/ subsequent seizure disorder ( maintained on Dilantin) presents from radiology department for evaluation after her health insurance was not accepted for scheduled b/l LE ultrasound. Patient also with recent fall at home. She was found to be in hypertensive urgency and acute renal failure on admission. Card: Hypertension urgency. improved. on Labetalol 400mg bid, norvasc 5 mg, may need further up titration if bp remains uncontrolled requires coronary artery evaluation, was followed by cardiology, and she deferred treatment holding lisonopril for renal failure Renal: Renal failure. renal consulted and following. worsening of renal function with a creatinine 5.3, potassium is normal. per renal, patient may need dialysis and kidney biopsy recommended but patient is refusing both. she is now agreeable to kidney biopsy, will have to be off of aspirin 81 mg daily for 7 days, she has been refusing in the hospital regardless started on lasix per renal, 40 mg daily, needs renal function checked on 12/27/18 Vascular: Cellulitis of right lower ext. On Keflex 500mg BID for RLE cellulitis (started 12/18/18) can stop after last dose on 12/24/18 she was refusing IV placement Negative for DVT of bilateral lower extremities Morbid obesity: started on lipitor for elevated lipids [id number] 4.7 dietary consulted for morbid obesity Neuro: Seizure disorder on dilantin 200mg bid Heme: Anemia likely due to chronic renal disease started iron therapy PPX: bowel regimen with colace and senna protonix 40mg daily disposition: discharge to rehab Transfer meds: Current Medications Generic Name Dose Route Start Last Admin Trade Name Freq PRN Reason Stop Dose Admin Acetaminophen 1,000 mg 12/24/18 07:40 12/24/18 12:45 Tylenol - PO 1,000 mg Q8H PRN Administration PAIN LEVEL 4 - 6 Amlodipine Besylate 5 mg 12/24/18 16:00 Norvasc - PO DAILY [facility] Lasix 40 mg daily Atorvastatin Calcium 40 mg 12/24/18 22:00 Lipitor - PO HS [facility] Cephalexin HCl 500 mg 12/24/18 10:00 12/24/18 09:20 Keflex - PO LAST DOSE ON 12/24/18 AT 2200 500 mg BID [facility] Administration Docusate Sodium 100 mg 12/24/18 10:00 12/24/18 09:20 Colace - PO 100 mg BID [facility] Administration Ferrous Sulfate 325 mg 12/24/18 08:00 12/24/18 09:20 Feosol - PO 325 mg BIDWM [facility] Administration Heparin Sodium (Porcine) 5,000 unit 12/24/18 14:00 12/24/18 14:36 Heparin - SQ Not Given TID [facility] Labetalol HCl 400 mg 12/23/18 22:00 12/24/18 09:20 Normodyne - PO 400 mg BID [facility] Administration Pantoprazole Sodium 40 mg 12/24/18 10:00 12/24/18 09:19 Protonix - PO 40 mg DAILY [facility] Administration Phenytoin Sodium 200 mg 12/24/18 10:00 12/24/18 09:20 Dilantin - PO 200 mg BID [facility] Administration Senna 2 tab 12/24/18 22:00 Senna - PO HS [facility] Transfer Instructions: Check renal function followup with Dr. Jordan on 01/01/19 at 2 pm stop aspirin for 1 week prior to kidney biopsy Condition: Stable - Instructions Diet, Activity, Other Instructions: FOLLOW UP WITH DR. JORDAN December , 2pm appointment DO NOT TAKE ASPIRIN X 1 WEEK BLOOD WORK TO BE DONE ON 12/27/18, CBC WITH DIFF AND CMET Referrals: Janice Davis NP [Primary Care Provider] - Kirti Jordan MD [Staff Physician] - Disposition: TRANSFER ACUTE CARE/OTHER HOSP - Home Medications Comprehensive Discharge Medication List: Ambulatory Orders Amlodipine Besylate 5 mg PO DAILY 12/17/18 Calcium Carbonate [[place]-500] 500 mg PO DAILY 12/17/18 Calcium Carbonate/Vitamin D3 [Oyster Shell 500-Vit D3 200 Tb] 1 each PO DAILY [facility] 325 mg PO DAILY 12/17/18 Gabapentin 300 mg PO TID 12/17/18 Phenytoin Sodium Extended 200 mg PO BID 12/17/18 SEE TRANSFER MEDS
[2018-12-24] MEDS ORDERED: ATORVASTATIN CA 40 MG TABLET (FP) PO SCH (22:00)
[2018-12-24] MEDS ORDERED: SENNOSIDES 8.6MG TABLET (FP) PO SCH (22:00)
== END 2018-12-24 18:59 | disposition short-term general hospital (02) | DRG 199 ==
LOC: JER 10:46 → JERBED 15:38 → J4W 12-18 05:21 → J8W 12-22 14:10
PROVIDERS: ADMIT Internal Medicine; ATTEND Internal Medicine
DX: I16.1 Hypertensive emergency (principal); N17.9 Acute kidney failure, unspecified; L03.115 Cellulitis of right lower limb; E66.01 Morbid (severe) obesity due to excess calories; Z68.42 Body mass index [BMI] 45.0-49.9, adult; G62.9 Polyneuropathy, unspecified; I10 Essential (primary) hypertension; D63.1 Anemia in chronic kidney disease; Z86.73 Personal history of transient ischemic attack (TIA), and cerebral infarction without residual deficits; F17.210 Nicotine dependence, cigarettes, uncomplicated; L81.8 Other specified disorders of pigmentation; G40.909 Epilepsy, unspecified, not intractable, without status epilepticus; Z86.718 Personal history of other venous thrombosis and embolism; M19.90 Unspecified osteoarthritis, unspecified site
CPT/HCPCS: 36415; 70450-TC; 71045-TC-FY; 76775-TC; 80048; 80053; 80061; 81003; 82140; 82436; 82550; 82553; 82570; 83036; 83516; 83520; 83540; 83550; 83605; 83721; 83735; 83880; 83930; 83935; 84133; 84155; 84156; 84165; 84300; 84443; 84484; 84540; 85025; 85027; 85610; 86038; 86256; 86704; 86706; 86708; 86850; 86900; 86901; 87086; 87340; 87522; 93005; 93010; 93306-TC; 93970-TC; 97116-GP; 97161-GP; 99285-25; J1644

== ENCOUNTER 2019-01-10 12:10 | Inpatient (IN) | payer OTHER ==
--- NOTE | 2019-01-10 12:20 | PDOC ---
History of Present Illness - General Stated Complaint: FALL Time Seen by Provider: 01/10/19 12:20 - History of Present Illness Initial Comments: 01/10/19 12:20 Ms. Adler is a 58 yo female w/ pmh of HTN, chronic arthritis, chronic anemia, CKD, prior CVAs in 2016, 2018 w/ subsequent seizure disorder (on dilantin) who presented for evaluation s/p fall at [facility] earlier today. Patient is currently in rehab following admission 12/17-12/24 for hypertensive urgency w/ lower extremity edema. Patient reports that today she fell after using the bathroom. Is unable to describe why she fell saying she felt weak. Ms. Adler also complains of a "cold" recently. The patient denies chest pain, shortness of breath, headache and dizziness. Denies fever, chills, nausea, vomit, diarrhea and constipation. Denies dysuria, frequency, urgency and hematuria. Past History - Past Medical History Allergies/Adverse Reactions: Allergies Allergy/AdvReac Type Severity Reaction Status Date / Time No Known Allergies Allergy Verified 12/17/18 10:54 Home Medications: Ambulatory Orders Amlodipine Besylate 5 mg PO DAILY 12/17/18 Calcium Carbonate [Oysco-500] 500 mg PO DAILY 12/17/18 Calcium Carbonate/Vitamin D3 [Oyster Shell 500-Vit D3 200 Tb] 1 each PO DAILY Ferrous Sulfate 325 mg PO DAILY 12/17/18 Gabapentin 300 mg PO TID 12/17/18 Phenytoin Sodium Extended 200 mg PO BID 12/17/18 Amlodipine Besylate [Norvasc -] 5 mg PO DAILY tablet 12/24/18 Atorvastatin Ca [Lipitor] 40 mg PO HS tablet 12/24/18 Cephalexin Monohydrate [Keflex -] 500 mg PO BID capsule 12/24/18 Docusate Sodium [Colace -] 100 mg PO BID capsule 12/24/18 Ferrous Sulfate [Feosol] 325 mg PO BIDWM ud 12/24/18 Heparin - 5,000 unit SQ TID vial 12/24/18 Labetalol HCl [Normodyne -] 400 mg PO BID tablet 12/24/18 Pantoprazole Sodium [Protonix -] 40 mg PO DAILY tablet.ec 12/24/18 Pantoprazole Sodium [Protonix -] 40 mg PO DAILY tablet.ec 12/24/18 Sennosides [Senna -] 2 tab PO HS tablet 12/24/18 Sennosides [Senna -] 2 tab PO HS tablet 12/24/18 CVA: Yes COPD: No HTN: Yes Seizures: Yes - Suicide/Smoking/Psychosocial Hx Smoking History: Current every day smoker Have you smoked in the past 12 months: Yes Number of Cigarettes Smoked Daily: 10 'Breaking Loose' booklet given: 12/18/18 Hx Alcohol Use: No Drug/Substance Use Hx: No Substance Use Type: None Hx Substance Use Treatment: No Review of Systems - Review of Systems Comments:: 01/10/19 12:22 GENERAL/CONSTITUTIONAL: +Weakness with fall, unable to elucidate if mechanical or weakness cause of fall. No fever or chills. HEAD, EYES, EARS, NOSE AND THROAT: No change in vision. No ear pain or discharge. No sore throat. CARDIOVASCULAR: No chest pain or shortness of breath RESPIRATORY: +"Chest cold" recently. No cough, wheezing, or hemoptysis. GASTROINTESTINAL: No nausea, vomiting, diarrhea or constipation. GENITOURINARY: No dysuria, frequency, or change in urination. MUSCULOSKELETAL: +Chronic leg pain w/ MICAH leg swelling improved from previous visit. No neck or back pain. SKIN: No rash NEUROLOGIC: No headache, vertigo, loss of consciousness, or change in strength/ sensation. ENDOCRINE: No increased thirst. No abnormal weight change HEMATOLOGIC/LYMPHATIC: No anemia, easy bleeding, or history of blood clots. ALLERGIC/IMMUNOLOGIC: No hives or skin allergy. *Physical Exam - Physical Exam Comments: 01/10/19 12:22 GENERAL: +Morbidly obese female. Awake, alert, and fully oriented, in no acute distress HEAD: No signs of trauma, normocephalic, atraumatic EYES: PERRLA, EOMI, sclera anicteric, conjunctiva clear ENT: Auricles normal inspection, hearing grossly normal, nares patent, oropharynx clear without exudates. Moist mucosa NECK: Normal ROM, supple, no lymphadenopathy, JVD, or masses LUNGS: +Diffuse wheezing appreciated. No distress, speaks full sentences HEART: Regular rate and rhythm, normal S1 and S2, no murmurs, rubs or gallops, peripheral pulses normal and equal bilaterally. ABDOMEN: Soft, nontender, normoactive bowel sounds. No guarding, no rebound. No masses EXTREMITIES: +MICAH 1+ Pedal edema. Pain w/ ranging of L knee. Otherwise normal inspection, Normal range of motion, no edema. No clubbing or cyanosis. NEUROLOGICAL: Cranial nerves II through XII grossly intact. Normal speech, normal gait, no focal sensorimotor deficits SKIN: Warm, Dry, normal turgor, no rashes or lesions noted. ED Treatment Course - LABORATORY CBC & Chemistry Diagram: 01/10/19 13:15 01/10/19 13:15 Medical Decision Making - Medical Decision Making 01/10/19 12:40 Ms. Adler is a 58 yo female w/ pmh as described who presents for evaluation of symptoms c/w mechanical fall vs. fall w/ cardiac or infectious etiology vs. sequelae s/p fall such as head or knee injury. Patient will be evaluated for cause and sequelae of fall w/ head and c-spine CT as well as infectious/cardiac evaluation. 01/10/19 13:57 Patient noted to be severely anemic w/ hemoglobin 6.9. Decision made to withhold transfusion at this time given patient's kidney status. 01/10/19 14:21 Patient noted to have elevated Cr as below w/ elevated K. Discussed patient with nephrology who suggested full Potassium lowering workup including calcium gluconate, sodium bicarb, insulin, glucose, Lowkelma. Patient will be admitted for further care. 01/10/19 15:34 Nephrology evaluated patient at bedside and believes patient requires admission for dialysis. Discussed patient with PCP (Dr. Murphy) who will admit for further evaluation. Laboratory Results - last 24 hr 01/10/19 01/10/19 01/10/19 13:00 13:15 13:15 WBC 6.4 RBC 2.49 L Hgb 6.9 L* Hct 21.3 L MCV 85.5 MCH 27.6 MCHC 32.3 RDW 17.1 H Plt Count 356 MPV 6.5 L Absolute Neuts (auto) 4.2 Neutrophils % 66.8 Lymphocytes % 17.0 D Monocytes % 8.6 Eosinophils % 5.9 H Basophils % 1.7 Nucleated RBC % 0 Sodium 141 Potassium 5.9 H Chloride 115 H Carbon Dioxide 17 L Anion Gap 10 BUN 60 H Creatinine 8.0 H* Est GFR (CKD-EPI)AfAm 5.74 Est GFR (CKD-EPI)NonAf 4.95 Random Glucose 86 Calcium 6.5 L* Total Bilirubin 0.2 AST 30 ALT 20 Alkaline Phosphatase 196 H Creatine Kinase 590 H Creatine Kinase Index 1.0 CK-MB (CK-2) 5.9 H Troponin I < 0.02 B-Natriuretic Peptide 9839.3 H Total Protein 4.9 L Albumin 1.6 L Phenytoin 5.8 L *DC/Admit/Observation/Transfer Diagnosis at time of Disposition: Hyperkalemia Renal failure Qualifiers: Renal failure chronicity: unspecified chronicity Qualified Code(s): N19 - Unspecified kidney failure Anemia Qualifiers: Anemia type: unspecified type Qualified Code(s): D64.9 - Anemia, unspecified - Discharge Dispostion Decision to Admit order: Yes - Referrals - Patient Instructions - Post Discharge Activity
[2019-01-10] MEDS ORDERED: ACETAMINOPHEN 500 MG TABLET (FP) PO ONE (12:35)
[2019-01-10] MEDS ORDERED: ALBUTEROL SO4 2.5/IPRATROPIUM 0.5 INH SOL 3 ML VIAL.NEB. NEB ONE ×2 (12:53→14:28)
[2019-01-10 13:32] LABS: BASO % 1.7 % (0-2.0); EOS % 5.9 % (0-4.5); HEMATOCRIT 21.3 % (32.4-45.2); MCH 27.6 pg (25.7-33.7); MCHC 32.3 g/dl (32.0-36.0); MEAN CELL VOLUME 85.5 fl (80-96); MEAN PLT VOLUME 6.5 fl (7.5-11.1); MONO % 8.6 % (3.8-10.2); NEUT % 66.8 % (42.8-82.8); PLATELET COUNT 356 K/MM3 (134-434); RBC 2.49 M/mm3 (3.60-5.2); RDW 17.1 % (11.6-15.6); WHITE BLOOD COUNT 6.4 K/mm3 (4.0-10.0)
[2019-01-10 13:37] LABS: HEMOGLOBIN 6.9 GM/dL (10.7-15.3)
[2019-01-10 14:11] LABS: ALBUMIN 1.6 g/dl (3.4-5.0); ALK PHOS 196 U/L (45-117); ANION GAP 10 MMOL/L (8-16); BILIRUBIN,TOTAL 0.2 mg/dL (0.2-1); BLOOD UREA NITROGEN 60 mg/dL (7-18); CHLORIDE 115 mmol/L (98-107); CO2 17 mmol/L (21-32); GLUCOSE,RANDOM 86 mg/dL (74-106); N-TERMINAL BNP 9839.3 pg/ml (5-125); POTASSIUM 5.9 mmol/L (3.5-5.1); SGOT/AST 30 U/L (15-37); SGPT/ALT 20 U/L (13-61); SODIUM 141 mmol/L (136-145); TOT PROT 4.9 g/dl (6.4-8.2)
[2019-01-10 14:14] LABS: CALCIUM 6.5 mg/dL (8.5-10.1)
[2019-01-10] MEDS ORDERED: SODIUM ZIRCONIUM CYCLOSILICATE (LOKELMA) 5 GM PACKET PO ONE (14:15)
[2019-01-10] MEDS ORDERED: CALCIUM CHLORIDE 10% 1 GM/10 ML *VIAL IVPUSH ONE (14:17)
[2019-01-10] MEDS ORDERED: INSULIN REGULAR HUMAN 100 UNITS/ML *VIAL IVPUSH ONE (14:20)
[2019-01-10] MEDS ORDERED: DEXTROSE 50%-WATER - 25 GM/50 ML VIAL IVPUSH ONE (14:20)
[2019-01-10] MEDS ORDERED: SODIUM BICARBONATE 8.4% 50 MEQ/50 ML DISP.SYRIN IVPUSH ONE (14:23)
[2019-01-10] MEDS ORDERED: CALCIUM CHLORIDE 10% 1 GM/10 ML *VIAL IVPB ONE (14:24)
--- NOTE | 2019-01-10 14:27 | PDOC ---
Documentation entered by Gordy Liu SCRIBE, acting as scribe for Shyann Harp MD. Shyann Harp MD: This documentation has been prepared by the Noe pitts Daniel, SCRIBE, under my direction and personally reviewed by me in its entirety. I confirm that the documentation accurately reflects all work, treatment, procedures, and medical decision making performed by me. Attending Attestation - Resident Resident Name: Chidi Whitley - ED Attending Attestation I have performed the following: I have examined & evaluated the patient, The case was reviewed & discussed with the resident, I agree w/resident's findings & plan, Exceptions are as noted - HPI HPI: 01/10/19 12:31 The patient is a 58 year old female with a past medical history of HTN, copd chronic arthritis, and CVA (2017, 2018) anemia, CKD, chf, seizure disorder here today for evaluation of lower extremity edema. The patient reports that she has had 3 weeks of bilateral lower extremity edema which has been getting progressively worse. She also notes an intermittent productive cough of yellow sputum. today she was getting up from toilet and lost her balance, fell over. states she got tangled in pants trying to pull them up. Patient denies headache, lightheadedness. Denies fever, chills. Denies chest pain, shortness of breath. Denies nausea, vomiting, diarrhea, abdominal pain. Allergies: NKA Social history: Patient confirms tobacco use ( pack per day for the last 40 years). Denies illicit drugs or alcohol use. 01/10/19 14:20 - Physicial Exam PE: 01/10/19 14:22 awak alert lungs with faint wheezes bilat bases posteriorly, faint crackles, heart rrr no mrg abd soft obese nt nd. ext wwp bilat pitting edema. nuero alert oriented x 3. - Medical Decision Making 01/10/19 14:24 pt s/p fall lost balance, crackles and wheezes on exam. bilat edema. differential pna chf effusion, copd, xray right knee r/o fx. head ct cervical spine r/o traumatic injuyry pt found to be worsening renal failure creatinine 8, d/w [facility] nephrology, will d/w pt pcp sangita. pt worsening anemia, 6.9 will hold transfusion at this point for fear volume overload until discussion regarding need for dilaysis, diuresis.
[2019-01-10] MEDS ORDERED: ACETAMINOPHEN 325 MG TABLET (FP) ONE (14:29)
[2019-01-10] MEDS ORDERED: SODIUM BICARBONATE 8.4% 50 MEQ/50 ML VIAL ONE (14:30)
[2019-01-10] MEDS ORDERED: CALCIUM CHLORIDE 1 GM/10 ML *DISP.SYRIN ONE ×2 (14:30→19:51)
[2019-01-10] MEDS ORDERED: DEXTROSE 50%-WATER 25 GM/50 ML DISP.SYRIN ONE (14:30)
[2019-01-10] MEDS ORDERED: INSULIN REGULAR HUMAN 100 UNITS/ML *VIAL ONE (14:31)
[2019-01-10] MEDS ORDERED: FUROSEMIDE 40 MG/4 ML INJECTABLE VIAL IVPUSH ONE (15:18)
--- NOTE | 2019-01-10 15:56 | CONSULT ---
Consult Consult Specialty:: Nephrology Reason for Consultation:: CKD - History of Present Illness Chief Complaint: sent in s/p fall History of Present Illness: Pt is a 58 year old female with pmhx of CKD, htn, athritis, anemia, and cva who was sent in after a fall. She was recently admitted with renal failure. She was found to have worsening renal failure in the ER and I was called to evaluate her. She denies shortness of breath but she complains of lower ext edema. She is refusing dialysis. She has not followed with me after her last discharged. She denies chest pain or palpitations. She was also found to be hyperkalemic. She denies loss of appetite. She had declined kidney biopsy during last admission. 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 History of Recent Travel: No Home Medications - Allergies Allergies/Adverse Reactions: Allergies Allergy/AdvReac Type Severity Reaction Status Date / Time No Known Allergies Allergy Verified 12/17/18 10:54 - Home Medications Home Medications: Ambulatory Orders Amlodipine Besylate 5 mg PO DAILY 12/17/18 Calcium Carbonate [Oysco-500] 500 mg PO DAILY 12/17/18 Calcium Carbonate/Vitamin D3 [Oyster Shell 500-Vit D3 200 Tb] 1 each PO DAILY Ferrous Sulfate 325 mg PO DAILY 12/17/18 Gabapentin 300 mg PO TID 12/17/18 Phenytoin Sodium Extended 200 mg PO BID 12/17/18 Amlodipine Besylate [Norvasc -] 5 mg PO DAILY tablet 12/24/18 Atorvastatin Ca [Lipitor] 40 mg PO HS tablet 12/24/18 Cephalexin Monohydrate [Keflex -] 500 mg PO BID capsule 12/24/18 Docusate Sodium [Colace -] 100 mg PO BID capsule 12/24/18 Ferrous Sulfate [Feosol] 325 mg PO BIDWM ud 12/24/18 Heparin - 5,000 unit SQ TID vial 12/24/18 Labetalol HCl [Normodyne -] 400 mg PO BID tablet 12/24/18 Pantoprazole Sodium [Protonix -] 40 mg PO DAILY tablet.ec 12/24/18 Pantoprazole Sodium [Protonix -] 40 mg PO DAILY tablet.ec 12/24/18 Sennosides [Senna -] 2 tab PO HS tablet 12/24/18 Sennosides [Senna -] 2 tab PO HS tablet 12/24/18 Family Disease History - Family Disease History Family Disease History: Other: Father ( (60+) CVA, h/p amputation), Mother ( (60+) HTN), Brother ( (23) drug overdose) Review of Systems - Review of Systems Constitutional: reports: Malaise Eyes: reports: No Symptoms HENT: reports: No Symptoms Neck: reports: No Symptoms Cardiovascular: reports: Edema Respiratory: reports: SOB on Exertion Gastrointestinal: reports: No Symptoms Genitourinary: reports: No Symptoms Musculoskeletal: reports: No Symptoms Integumentary: reports: No Symptoms Neurological: reports: No Symptoms Endocrine: reports: No Symptoms Hematology/Lymphatic: reports: No Symptoms Psychiatric: reports: No Symptoms Physical Exam Vital Signs: Vital Signs Temperature 98.4 F 01/10/19 12:21 Pulse Rate 84 01/10/19 12:21 Respiratory Rate 18 01/10/19 12:21 Blood Pressure 117/80 01/10/19 12:21 O2 Sat by Pulse Oximetry (%) 98 01/10/19 12:21 Constitutional: Yes: Anxious Eyes: Yes: Conjunctiva Clear Cardiovascular: Yes: S1, S2 Respiratory: Yes: On Nasal O2 Gastrointestinal: Yes: Soft, Abdomen, Obese Renal/: Yes: WNL Musculoskeletal: Yes: WNL Edema: Yes Edema: LLE: 3+, RLE: 3+ Neurological: Yes: Oriented Psychiatric: Yes: Oriented Labs: CBC, BMP 01/10/19 13:15 01/10/19 13:15 Laboratory Tests 12/21/18 12/22/18 12/24/18 05:30 10:48 06:30 Creatinine 5.3 H 5.4 H 5.5 H Imaging - Results Chest X-ray: Report Reviewed Problem List - Problems (1) Anemia Code(s): D64.9 - ANEMIA, UNSPECIFIED Qualifiers: Anemia type: unspecified type Qualified Code(s): D64.9 - Anemia, unspecified (2) Hyperkalemia Code(s): E87.5 - HYPERKALEMIA (3) Renal failure Code(s): N19 - UNSPECIFIED KIDNEY FAILURE Qualifiers: Renal failure chronicity: unspecified chronicity Qualified Code(s): N19 - Unspecified kidney failure Assessment/Plan Laboratory Tests 12/22/18 12/22/18 12/22/18 10:34 10:34 10:34 NICK M-Rigoberto NICOLE Screen c-ANCA <1:20 Proteinase 3 (PR3) <3.5 p-ANCA <1:20 Atypical p-ANCA <1:20 Myeloperoxidase Ab <9.0 Glomerular Base Memb Ab 3 Hep Bs Antigen Hep Bs Antibody Hep B Core Total Ab HCV Quantitation [id number] HCV RNA log copies/mL 5.834 12/22/18 12/22/18 12/22/18 10:34 10:34 10:48 NICK M-Rigoberto Not observed NICOLE Screen Negative c-ANCA Proteinase 3 (PR3) p-ANCA Atypical p-ANCA Myeloperoxidase Ab Glomerular Base Memb Ab Hep Bs Antigen Negative Hep Bs Antibody Non reactive Hep B Core Total Ab Negative HCV Quantitation HCV RNA log copies/mL Impression 1. SOHAIL 2. lower ext edema 3. anemia 4. HTN 5. arthritis 6. nephrotic range proteinura 7. obesity 8. positive hep c virus on last admission Plan - spoke to patient at length. I recommend dialysis however she is refusing. I explained the risk of to the patient. I tried to call her daughter Mayo as well. - treat potassium medically as she is refusing HD - will need to monitor labs - give lasix to help wit edema, she has poor renal function so it may not result in much diuresis - renal diet - check phos levels - will give a dose of epogen - monitor hg - check iron studies - GI eval for hep c serologies - daughter Mayo [phone]
[2019-01-10] MEDS ORDERED: EPOETIN ALFA 10,000 UNIT/1 ML VIAL SQ ONE (16:00)
--- NOTE | 2019-01-10 17:37 | HP ---
Admitting History and Physical - Primary Care Physician PCP: Darell Murphy - Admission History of Present Illness: Pt is a 58 year old female with pmhx of CKD, htn, athritis, anemia, and cva who was sent in after a fall. She was recently admitted with renal failure. She was found to have worsening renal failure in the ER . She denies shortness of breath but she complains of lower ext edema. She denies chest pain or palpitations. She was also found to be hyperkalemic. She denies loss of appetite. 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 History of Recent Travel: No Home Medications - Allergies Allergies/Adverse Reactions: Allergies Allergy/AdvReac Type Severity Reaction Status Date / Time No Known Allergies Allergy Verified 12/17/18 10:54 - Home Medications Home Medications: Ambulatory Orders Amlodipine Besylate 5 mg PO DAILY 12/17/18 Calcium Carbonate [Oysco-500] 500 mg PO DAILY 12/17/18 Calcium Carbonate/Vitamin D3 [Oyster Shell 500-Vit D3 200 Tb] 1 each PO DAILY Ferrous Sulfate 325 mg PO DAILY 12/17/18 Gabapentin 300 mg PO TID 12/17/18 Phenytoin Sodium Extended 200 mg PO BID 12/17/18 Amlodipine Besylate [Norvasc -] 5 mg PO DAILY tablet 12/24/18 Atorvastatin Ca [Lipitor] 40 mg PO HS tablet 12/24/18 Cephalexin Monohydrate [Keflex -] 500 mg PO BID capsule 12/24/18 Docusate Sodium [Colace -] 100 mg PO BID capsule 12/24/18 Ferrous Sulfate [Feosol] 325 mg PO BIDWM ud 12/24/18 Heparin - 5,000 unit SQ TID vial 12/24/18 Labetalol HCl [Normodyne -] 400 mg PO BID tablet 12/24/18 Pantoprazole Sodium [Protonix -] 40 mg PO DAILY tablet.ec 12/24/18 Pantoprazole Sodium [Protonix -] 40 mg PO DAILY tablet.ec 12/24/18 Sennosides [Senna -] 2 tab PO HS tablet 12/24/18 Sennosides [Senna -] 2 tab PO HS tablet 12/24/18 Family Disease History - Family Disease History Family Disease History: Other: Father ( (60+) CVA, h/p amputation), Mother ( (60+) HTN), Brother ( (23) drug overdose) Physical Examination Vital Signs: Vital Signs Temperature 98.4 F 01/10/19 12:21 Pulse Rate 84 01/10/19 12:21 Respiratory Rate 18 01/10/19 12:21 Blood Pressure 117/80 01/10/19 12:21 O2 Sat by Pulse Oximetry (%) 98 01/10/19 12:21 Constitutional: Yes: No Distress HENT: Yes: Atraumatic Neck: Yes: Supple Cardiovascular: Yes: Regular Rate and Rhythm Respiratory: Yes: CTA Bilaterally Gastrointestinal: Yes: Normal Bowel Sounds Extremities: Yes: WNL Neurological: Yes: Alert, Oriented Labs: CBC, BMP 01/10/19 13:15 01/10/19 13:15 Imaging - Results Cat Scan: Report Reviewed Problem List - Problems (1) HTN (hypertension) Code(s): I10 - ESSENTIAL (PRIMARY) HYPERTENSION Qualifiers: Hypertension type: essential hypertension Qualified Code(s): I10 - Essential (primary) hypertension (2) Hyperkalemia Assessment/Plan: patient refusing HD d/w dr espinoza Code(s): E87.5 - HYPERKALEMIA (3) Renal failure Code(s): N19 - UNSPECIFIED KIDNEY FAILURE Qualifiers: Renal failure chronicity: unspecified chronicity Qualified Code(s): N19 - Unspecified kidney failure (4) Seizure disorder Code(s): G40.909 - EPILEPSY, UNSP, NOT INTRACTABLE, WITHOUT STATUS EPILEPTICUS (5) Anemia Assessment/Plan: refusing blood transfusion Code(s): D64.9 - ANEMIA, UNSPECIFIED Qualifiers: Anemia type: unspecified type Qualified Code(s): D64.9 - Anemia, unspecified Assessment/Plan Laboratory Tests 01/10/19 01/10/1901/10/19 13:00 13:15 13:15 WBC 6.4 RBC 2.49 L Hgb 6.9 L* Hct 21.3 L MCV 85.5 MCH 27.6 MCHC 32.3 RDW 17.1 H Plt Count 356 MPV 6.5 L Absolute Neuts (auto) 4.2 Neutrophils % 66.8 Lymphocytes % 17.0 D Monocytes % 8.6 Eosinophils % 5.9 H Basophils % 1.7 Nucleated RBC % 0 Sodium 141 Potassium 5.9 H Chloride 115 H Carbon Dioxide 17 L Anion Gap 10 BUN 60 H Creatinine 8.0 H* Est GFR (CKD-EPI)AfAm 5.74 Est GFR (CKD-EPI)NonAf 4.95 Random Glucose 86 Calcium 6.5 L* Total Bilirubin 0.2 AST 30 ALT 20 Alkaline Phosphatase 196 H Creatine Kinase 590 H Creatine Kinase Index 1.0 CK-MB (CK-2) 5.9 H Troponin I < 0.02 B-Natriuretic Peptide 9839.3 H Total Protein 4.9 L Albumin 1.6 L Phenytoin 5.8 L Active Medications Generic Name Dose Route Start Last Admin Trade Name Freq PRN Reason Stop Dose Admin Atorvastatin Calcium 40 mg 01/10/19 22:00 01/12/19 21:26 Lipitor - PO 40 mg HS ELIJAH Administration Calcium Acetate 667 mg 01/11/19 17:30 01/13/19 17:41 Phoslo - PO 667 mg TIDCM ELIJAH Administration Docusate Sodium 100 mg 01/10/19 22:00 01/13/19 09:02 Colace - PO 100 mg BID ELIJAH Administration Ferrous Sulfate 325 mg 01/11/19 08:00 01/13/19 17:42 Feosol - PO 325 mg BIDWM ELIJAH Administration Furosemide 80 mg 01/11/19 14:00 01/13/19 14:02 Lasix - PO 80 mg BID@0600,1400 ELIJAH Administration Guaifenesin 10 ml 01/13/19 15:00 01/13/19 15:14 Robitussin - PO 10 ml Q6H PRN Administration COUGH Heparin Sodium (Porcine) 5,000 unit 01/10/19 22:00 01/13/19 09:10 Heparin - SQ Not Given BID ELIJAH Labetalol HCl 400 mg 01/10/19 22:00 01/13/19 09:02 Normodyne - PO 400 mg BID ELIJAH Administration Pantoprazole Sodium 40 mg 01/11/19 10:00 01/13/19 09:02 Protonix - PO 40 mg DAILY ELIJAH Administration Phenytoin Sodium 200 mg 01/10/19 22:00 01/13/19 09:02 Dilantin - PO 200 mg BID ELIJAH Administration
[2019-01-10] MEDS ORDERED: FUROSEMIDE 40 MG/4 ML INJECTABLE VIAL ONE (19:30)
[2019-01-10] MEDS: LABETALOL HCL 200 MG TABLET (FP) PO SCH (23:19)
[2019-01-10] MEDS: PHENYTOIN NA EXTENDED 100 MG CAPSULE (FP) PO SCH (23:20)
[2019-01-10] MEDS: HEPARIN NA (PORCINE) 5,000 UNITS/ML 1ML VIAL SQ SCH (23:21)
[2019-01-10] MEDS: DOCUSATE SODIUM 100 MG CAPSULE (FP) PO SCH (23:21)
[2019-01-10] MEDS: ATORVASTATIN CA 40 MG TABLET (FP) PO SCH (23:21)
[2019-01-11 00:01] LABS: EPI CELLS 4.2 /HPF (0-5/HPF); HYALINE CASTS 15 /lpf (0-8); URINE APPEARANCE CLOUDY; URINE BACTERIA 212.9 /hpf (NEGATIVE); URINE BILIRUBIN NEGATIVE (NEGATIVE); URINE COLOR YELLOW; URINE GLUCOSE (UA) NEGATIVE (NEGATIVE); URINE KETONE NEGATIVE (NEGATIVE); URINE LEUK ESTERASE TRACE (NEGATIVE); URINE NITRITE NEGATIVE (NEGATIVE); URINE PROTEIN 4+ (NEGATIVE); URINE RBC 54 /hpf (0-4); URINE UROBILINOGEN 0.2 mg/dL (0.2-1.0); URINE WBC 45 /hpf (0-5)
[2019-01-11] MEDS: DOCUSATE SODIUM 100 MG CAPSULE (FP) PO SCH ×2 (09:58→21:25)
[2019-01-11] MEDS: PANTOPRAZOLE 40 MG TABLET (FP) PO SCH (09:58)
[2019-01-11] MEDS: LABETALOL HCL 200 MG TABLET (FP) PO SCH ×2 (09:58→21:25)
[2019-01-11] MEDS: PHENYTOIN NA EXTENDED 100 MG CAPSULE (FP) PO SCH ×2 (09:59→21:25)
[2019-01-11] MEDS: HEPARIN NA (PORCINE) 5,000 UNITS/ML 1ML VIAL SQ SCH ×3 (09:59→21:34)
[2019-01-11] MEDS: FERROUS SO4 325 MG TABLET (FP) PO SCH ×2 (09:59→17:19)
--- NOTE | 2019-01-11 12:47 | PN ---
Progress Note, Physician History of Present Illness: Pt seen and examined at bedside. She is still refusing dialysis. She is refusing bloodwork as well. I had a long talk with her and explained the morbidity and mortality. - Current Medication List Current Medications: Active Medications Atorvastatin Calcium (Lipitor -) 40 mg PO HS COUNT INCLUDES THE [facility] Last Admin: 01/10/19 23:21 Dose: 40 mg Docusate Sodium (Colace -) 100 mg PO BID COUNT INCLUDES THE [facility] Last Admin: 01/11/19 09:58 Dose: 100 mg Ferrous Sulfate (Feosol -) 325 mg PO BIDWM COUNT INCLUDES THE [facility] Last Admin: 01/11/19 09:59 Dose: 325 mg Heparin Sodium (Porcine) (Heparin -) 5,000 unit SQ BID COUNT INCLUDES THE [facility] Last Admin: 01/11/19 09:59 Dose: Not Given Labetalol HCl (Normodyne -) 400 mg PO BID COUNT INCLUDES THE [facility] Last Admin: 01/11/19 09:58 Dose: 400 mg Pantoprazole Sodium (Protonix -) 40 mg PO DAILY COUNT INCLUDES THE [facility] Last Admin: 01/11/19 09:58 Dose: 40 mg Phenytoin Sodium (Dilantin -) 200 mg PO BID COUNT INCLUDES THE [facility] Last Admin: 01/11/19 09:59 Dose: 200 mg - Objective Vital Signs: Vital Signs Temperature 98.5 F 01/11/19 06:00 Pulse Rate 99 H 01/11/19 06:00 Respiratory Rate 18 01/11/19 09:00 Blood Pressure 148/94 01/11/19 06:00 O2 Sat by Pulse Oximetry (%) 94 L 01/11/19 09:00 Constitutional: Yes: Calm Eyes: Yes: Conjunctiva Clear HENT: Yes: Atraumatic Cardiovascular: Yes: S1, S2 Respiratory: Yes: CTA Bilaterally Gastrointestinal: Yes: Soft, Abdomen, Obese Genitourinary: Yes: WNL Edema: Yes Edema: LLE: 2+, RLE: 2+ Neurological: Yes: Oriented Psychiatric: Yes: Oriented Labs: CBC, BMP 01/10/19 13:15 01/10/19 13:15 Problem List - Problems (1) Anemia Code(s): D64.9 - ANEMIA, UNSPECIFIED Qualifiers: Anemia type: unspecified type Qualified Code(s): D64.9 - Anemia, unspecified (2) Hyperkalemia Code(s): E87.5 - HYPERKALEMIA (3) Renal failure Code(s): N19 - UNSPECIFIED KIDNEY FAILURE Qualifiers: Renal failure chronicity: unspecified chronicity Qualified Code(s): N19 - Unspecified kidney failure Assessment/Plan Current Medications Generic Name Dose Route Start Last Admin Trade Name Shannan PRN Reason Stop Dose Admin Atorvastatin Calcium 40 mg 01/10/19 22:00 01/10/19 23:21 Lipitor - PO 40 mg HS ELIJAH Administration Docusate Sodium 100 mg 01/10/19 22:00 01/11/19 09:58 Colace - PO 100 mg BID ELIJAH Administration Ferrous Sulfate 325 mg 01/11/19 08:00 01/11/19 09:59 Feosol - PO 325 mg BIDWM ELIJAH Administration Heparin Sodium (Porcine) 5,000 unit 01/10/19 22:00 01/11/19 09:59 Heparin - SQ Not Given BID ELIJAH Labetalol HCl 400 mg 01/10/19 22:00 01/11/19 09:58 Normodyne - PO 400 mg BID ELIJAH Administration Pantoprazole Sodium 40 mg 01/11/19 10:00 01/11/19 09:58 Protonix - PO 40 mg DAILY ELIJAH Administration Phenytoin Sodium 200 mg 01/10/19 22:00 01/11/19 09:59 Dilantin - PO 200 mg BID ELIJAH Administration Impression 1. SOHAIL 2. lower ext edema 3. anemia 4. HTN 5. arthritis 6. nephrotic range proteinura 7. obesity 8. positive hep c virus on last admission Plan - PP lasix as she does not have an IV - psych eval - pt refusing labs - explained risk of to pt - renal diet - check phos levels - monitor hg - check iron studies - GI eval for hep c serologies - daughter Mayo [phone]
[2019-01-11] MEDS ORDERED: SODIUM ZIRCONIUM CYCLOSILICATE (LOKELMA) 5 GM PACKET PO ONE (13:00)
--- NOTE | 2019-01-11 13:22 | CON.CARD ---
Consult Consult Specialty:: Cardiology Referred by:: Dr. Murphy Reason for Consultation:: Cardiac evaluation (Coverage for Dr. Woods and Fallon) - History of Present Illness Chief Complaint: Post mechanical fall History of Present Illness: Patient is a 58 year old female with underlying history of HTN, hypercholesteromia, CKD, cerebrovascular disease, seizure disorder, anemia and osteoarthritis who presents after a fall at the [facility] yesterday. She has been at the [facility] for rehabilitation. She was hospitalized recently with hypertensive urgency and lower extremity swelling. Currently, she denies chest pain, SOB or palpitations. She denies paroxysmal nocturnal dyspnea or orthopnea. She denies fever or chills. She denies nausea, vomiting, diarrhea or abdominal pain. She denies headache or lightheadedness. she has swelling of right hand with slight erythema. 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: CVA, Peripheral Neuropathy, Seizure Cardio/Vascular: Yes: HTN, Hyperlipdemia Renal/: Yes: Renal Inusuff Musculoskeletal: Yes: Osteoarthritis - Alcohol/Substance Use Hx Alcohol Use: No History of Substance Use: reports: None - Smoking History Smoking history: Current every day smoker Have you smoked in the past 12 months: Yes Aproximately how many cigarettes per day: 10 - Social History ADL: Support Services ([employer] 9A -2p x 7days per week) 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 History of Recent Travel: No Home Medications - Allergies Allergies/Adverse Reactions: Allergies Allergy/AdvReac Type Severity Reaction Status Date / Time No Known Allergies Allergy Verified 12/17/18 10:54 - Home Medications Home Medications: Ambulatory Orders Amlodipine Besylate 5 mg PO DAILY 12/17/18 Calcium Carbonate [Oysco-500] 500 mg PO DAILY 12/17/18 Calcium Carbonate/Vitamin D3 [Oyster Shell 500-Vit D3 200 Tb] 1 each PO DAILY Ferrous Sulfate 325 mg PO DAILY 12/17/18 Gabapentin 300 mg PO TID 12/17/18 Phenytoin Sodium Extended 200 mg PO BID 12/17/18 Amlodipine Besylate [Norvasc -] 5 mg PO DAILY tablet 12/24/18 Atorvastatin Ca [Lipitor] 40 mg PO HS tablet 12/24/18 Cephalexin Monohydrate [Keflex -] 500 mg PO BID capsule 12/24/18 Docusate Sodium [Colace -] 100 mg PO BID capsule 12/24/18 Ferrous Sulfate [Feosol] 325 mg PO BIDWM ud 12/24/18 Heparin - 5,000 unit SQ TID vial 12/24/18 Labetalol HCl [Normodyne -] 400 mg PO BID tablet 12/24/18 Pantoprazole Sodium [Protonix -] 40 mg PO DAILY tablet.ec 12/24/18 Pantoprazole Sodium [Protonix -] 40 mg PO DAILY tablet.ec 12/24/18 Sennosides [Senna -] 2 tab PO HS tablet 12/24/18 Sennosides [Senna -] 2 tab PO HS tablet 12/24/18 Family Disease History - Family Disease History Family Disease History: Other: Father ( (60+) CVA, h/p amputation), Mother ( (60+) HTN), Brother ( (23) drug overdose) Review of Systems - Review of Systems Constitutional: denies: Chills Cardiovascular: denies: Chest Pain, Palpitations, Shortness of Breath Respiratory: denies: Cough, Hemoptysis, Orthopnea, PND, SOB, SOB on Exertion, Wheezing Genitourinary: denies: Dysuria, Hematuria Musculoskeletal: denies: Back Pain, Joint Pain Neurological: reports: Seizure. denies: Dizziness, Headache, Syncope Vital Signs: Vital Signs Temperature 98.5 F 01/11/19 06:00 Pulse Rate 99 H 01/11/19 06:00 Respiratory Rate 18 01/11/19 09:00 Blood Pressure 148/94 01/11/19 06:00 O2 Sat by Pulse Oximetry (%) 94 L 01/11/19 09:00 Eyes: Yes: PERRL HENT: Yes: Atraumatic Neck: Yes: Supple Respiratory: Yes: Diminished Gastrointestinal: Yes: Normal Bowel Sounds, Soft, Abdomen, Obese. No: Tenderness Cardiovascular: Yes: Regular Rate and Rhythm JVD: No PMI: Non-Displaced Edema: Yes - Other Data Labs, Other Data: CBC, BMP 01/10/19 13:15 01/10/19 13:15 Troponin, BNP 01/10/19 13:15 Troponin I < 0.02 B-Natriuretic Peptide 9839.3 H Laboratory Results - last 24 hr 01/10/19 01/10/1919 13:00 13:15 13:15 WBC 6.4 RBC 2.49 L Hgb 6.9 L* Hct 21.3 L MCV 85.5 MCH 27.6 MCHC 32.3 RDW 17.1 H Plt Count 356 MPV 6.5 L Absolute Neuts (auto) 4.2 Neutrophils % 66.8 Lymphocytes % 17.0 D Monocytes % 8.6 Eosinophils % 5.9 H Basophils % 1.7 Nucleated RBC % 0 Sodium 141 Potassium 5.9 H Chloride 115 H Carbon Dioxide 17 L Anion Gap 10 BUN 60 H Creatinine 8.0 H* Est GFR (CKD-EPI)AfAm 5.74 Est GFR (CKD-EPI)NonAf 4.95 Random Glucose 86 Calcium 6.5 L* Total Bilirubin 0.2 AST 30 ALT 20 Alkaline Phosphatase 196 H Creatine Kinase 590 H Creatine Kinase Index 1.0 CK-MB (CK-2) 5.9 H Troponin I < 0.02 B-Natriuretic Peptide 9839.3 H Total Protein 4.9 L Albumin 1.6 L Urine Color Urine Appearance Urine pH Ur Specific [place] Urine Protein Urine Glucose (UA) Urine Ketones Urine Blood Urine Nitrite Urine Bilirubin Urine Urobilinogen Ur Leukocyte Esterase Urine WBC (Auto) Urine RBC (Auto) Urine Casts (Auto) U Epithel Cells (Auto) Urine Bacteria (Auto) Phenytoin 5.8 L 01/10/19 23:30 WBC RBC Hgb Hct MCV MCH MCHC RDW Plt Count MPV Absolute Neuts (auto) Neutrophils % Lymphocytes % Monocytes % Eosinophils % Basophils % Nucleated RBC % Sodium Potassium Chloride Carbon Dioxide Anion Gap BUN Creatinine Est GFR (CKD-EPI)AfAm Est GFR (CKD-EPI)NonAf Random Glucose Calcium Total Bilirubin AST ALT Alkaline Phosphatase Creatine Kinase Creatine Kinase Index CK-MB (CK-2) Troponin I B-Natriuretic Peptide Total Protein Albumin Urine Color Yellow Urine Appearance Cloudy Urine pH 6.0 Ur Specific [place] 1.024 Urine Protein 4+ H Urine Glucose (UA) Negative Urine Ketones Negative Urine Blood 3+ H Urine Nitrite Negative Urine Bilirubin Negative Urine Urobilinogen 0.2 Ur Leukocyte Esterase Trace Urine WBC (Auto) 45 Urine RBC (Auto) 54 Urine Casts (Auto) 15 U Epithel Cells (Auto) 4.2 Urine Bacteria (Auto) 212.9 Phenytoin Normal sinus rhythm no ST-T abnormality Imaging - Results Chest X-ray: Report Reviewed (Unremarkable) Cat Scan: Report Reviewed (Head CT and Cervical spine CT unremarkable) EKG: Report Reviewed Problem List - Problems (1) Hypercholesterolemia Code(s): E78.00 - PURE HYPERCHOLESTEROLEMIA, UNSPECIFIED (2) Accident due to mechanical fall without injury Code(s): W19.XXXA - UNSPECIFIED FALL, INITIAL ENCOUNTER (3) Anemia Code(s): D64.9 - ANEMIA, UNSPECIFIED Qualifiers: Anemia type: unspecified type Qualified Code(s): D64.9 - Anemia, unspecified (4) HTN (hypertension) Code(s): I10 - ESSENTIAL (PRIMARY) HYPERTENSION Qualifiers: Hypertension type: essential hypertension Qualified Code(s): I10 - Essential (primary) hypertension (5) Hyperkalemia Code(s): E87.5 - HYPERKALEMIA (6) Renal failure Code(s): N19 - UNSPECIFIED KIDNEY FAILURE Qualifiers: Renal failure chronicity: unspecified chronicity Qualified Code(s): N19 - Unspecified kidney failure (7) Seizure disorder Code(s): G40.909 - EPILEPSY, UNSP, NOT INTRACTABLE, WITHOUT STATUS EPILEPTICUS Assessment/Plan 1. Mechanical fall no LOC and no fractures 2. HTN 3. Hypercholesterolemia 4. Cerebrovascular disease 5. SOHAIL with nephrotic syndrome 6. History of seizure disorder PLAN: 1. Continue Labetalol 400 mg BID as tolerated 2. Continue Atorvastatin 40 mg QD 3. Renal input noted for HD, but patient refuses. 4. Monitor renal function and electrolytes 5. Diuretic as per Renal service 6. Echocardiography to assess LV/RV and valvular function 7. Continue Dilantin Further plans are to follow Jim Willson MD
[2019-01-11] MEDS: FUROSEMIDE 40 MG TABLET (FP) PO SCH (13:24)
[2019-01-11] MEDS ORDERED: PT OWN MED DRAWER 7, Y5N ONE ×2 (14:01→15:17)
--- NOTE | 2019-01-11 15:38 | EKG ---
Test Reason : Blood Pressure : / mmHG Vent. Rate : 081 BPM Atrial Rate : 081 BPM P-R Int : 160 ms QRS Dur : 080 ms QT Int : 404 ms P-R-T Axes : 038 002 022 degrees QTc Int : 469 ms NORMAL SINUS RHYTHM POSSIBLE ANTERIOR INFARCT (CITED ON OR BEFORE 17-DEC-2018) ABNORMAL ECG WHEN COMPARED WITH ECG OF 17-DEC-2018 17:01, NO SIGNIFICANT CHANGE WAS FOUND Confirmed by MD Denny, Gordy ([id number]) on 01/11/2019 3:37:54 PM Referred By: Confirmed By:Gordy Baldwin MD
[2019-01-11] MEDS: CALCIUM ACETATE 667 MG CAPSULE (FP) PO SCH (17:19)
[2019-01-11] MEDS: ATORVASTATIN CA 40 MG TABLET (FP) PO SCH (21:25)
--- NOTE | 2019-01-11 23:42 | PN ---
Progress Note, Physician - Current Medication List Current Medications: Active Medications Atorvastatin Calcium (Lipitor -) 40 mg PO HS [facility] Last Admin: 01/11/19 21:25 Dose: 40 mg Calcium Acetate (Phoslo -) 667 mg PO TIDCM [facility] Last Admin: 01/11/19 17:19 Dose: 667 mg Docusate Sodium (Colace -) 100 mg PO BID [facility] Last Admin: 01/11/19 21:25 Dose: 100 mg Ferrous Sulfate (Feosol -) 325 mg PO BIDWM [facility] Last Admin: 01/11/19 17:19 Dose: 325 mg Furosemide (Lasix -) 80 mg PO BID@0600,1400 [facility] Last Admin: 01/11/19 13:24 Dose: 80 mg Heparin Sodium (Porcine) (Heparin -) 5,000 unit SQ BID [facility] Last Admin: 01/11/19 21:34 Dose: Not Given Labetalol HCl (Normodyne -) 400 mg PO BID [facility] Last Admin: 01/11/19 21:25 Dose: 400 mg Pantoprazole Sodium (Protonix -) 40 mg PO DAILY [facility] Last Admin: 01/11/19 09:58 Dose: 40 mg Phenytoin Sodium (Dilantin -) 200 mg PO BID [facility] Last Admin: 01/11/19 21:25 Dose: 200 mg - Objective Vital Signs: Vital Signs Temperature 98.6 F 01/11/19 21:18 Pulse Rate 100 H 01/11/19 21:18 Respiratory Rate 22 H 01/11/19 21:18 Blood Pressure 115/52 L 01/11/19 21:18 O2 Sat by Pulse Oximetry (%) 96 01/11/19 21:00 Labs: CBC, BMP 01/10/19 13:15 01/10/19 13:15
[2019-01-12] MEDS: FUROSEMIDE 40 MG TABLET (FP) PO SCH ×2 (06:02→14:42)
[2019-01-12] MEDS: HEPARIN NA (PORCINE) 5,000 UNITS/ML 1ML VIAL SQ SCH ×3 (09:17→21:25)
[2019-01-12] MEDS: PANTOPRAZOLE 40 MG TABLET (FP) PO SCH (09:18)
[2019-01-12] MEDS: DOCUSATE SODIUM 100 MG CAPSULE (FP) PO SCH ×2 (09:18→21:26)
[2019-01-12] MEDS: PHENYTOIN NA EXTENDED 100 MG CAPSULE (FP) PO SCH ×2 (09:18→21:26)
[2019-01-12] MEDS: CALCIUM ACETATE 667 MG CAPSULE (FP) PO SCH ×3 (09:18→16:45)
[2019-01-12] MEDS: LABETALOL HCL 200 MG TABLET (FP) PO SCH ×2 (09:18→21:25)
[2019-01-12] MEDS: FERROUS SO4 325 MG TABLET (FP) PO SCH ×2 (09:18→16:45)
--- NOTE | 2019-01-12 11:46 | PN ---
Progress Note, Physician History of Present Illness: Pt seen and examined at bedside. She is awake and alert. She refused bloodwork today. She is still refusing HD. - Current Medication List Current Medications: Active Medications Atorvastatin Calcium (Lipitor -) 40 mg PO HS [facility] Last Admin: 01/11/19 21:25 Dose: 40 mg Calcium Acetate (Phoslo -) 667 mg PO TIDCM [facility] Last Admin: 01/12/19 09:18 Dose: 667 mg Docusate Sodium (Colace -) 100 mg PO BID [facility] Last Admin: 01/12/19 09:18 Dose: 100 mg Ferrous Sulfate (Feosol -) 325 mg PO BIDWM [facility] Last Admin: 01/12/19 09:18 Dose: 325 mg Furosemide (Lasix -) 80 mg PO BID@0600,1400 [facility] Last Admin: 01/12/19 06:02 Dose: 80 mg Heparin Sodium (Porcine) (Heparin -) 5,000 unit SQ BID [facility] Last Admin: 01/12/19 09:28 Dose: Not Given Labetalol HCl (Normodyne -) 400 mg PO BID [facility] Last Admin: 01/12/19 09:18 Dose: 400 mg Pantoprazole Sodium (Protonix -) 40 mg PO DAILY [facility] Last Admin: 01/12/19 09:18 Dose: 40 mg Phenytoin Sodium (Dilantin -) 200 mg PO BID [facility] Last Admin: 01/12/19 09:18 Dose: 200 mg - Objective Vital Signs: Vital Signs Temperature 98.4 F 01/12/19 09:00 Pulse Rate 90 01/12/19 09:00 Respiratory Rate 18 01/12/19 09:00 Blood Pressure 136/91 01/12/19 09:00 O2 Sat by Pulse Oximetry (%) 96 01/11/19 21:00 Constitutional: Yes: Calm Eyes: Yes: Conjunctiva Clear HENT: Yes: Atraumatic Neck: Yes: Supple Cardiovascular: Yes: S1, S2 Respiratory: Yes: On Nasal O2 Gastrointestinal: Yes: Soft, Abdomen, Obese Genitourinary: Yes: WNL Musculoskeletal: Yes: WNL Edema: Yes Edema: LLE: 2+, RLE: 2+ Neurological: Yes: Oriented Psychiatric: Yes: Oriented Labs: CBC, BMP 01/10/19 13:15 01/10/19 13:15 Problem List - Problems (1) Anemia Code(s): D64.9 - ANEMIA, UNSPECIFIED Qualifiers: Anemia type: unspecified type Qualified Code(s): D64.9 - Anemia, unspecified (2) Hyperkalemia Code(s): E87.5 - HYPERKALEMIA (3) Renal failure Code(s): N19 - UNSPECIFIED KIDNEY FAILURE Qualifiers: Renal failure chronicity: unspecified chronicity Qualified Code(s): N19 - Unspecified kidney failure Assessment/Plan Current Medications Generic Name Dose Route Start Last Admin Trade Name Sahnnan PRN Reason Stop Dose Admin Atorvastatin Calcium 40 mg 01/10/19 22:00 01/11/19 21:25 Lipitor - PO 40 mg HS ELIJAH Administration Calcium Acetate 667 mg 01/11/19 17:30 01/12/19 09:18 Phoslo - PO 667 mg TIDCM ELIJAH Administration Docusate Sodium 100 mg 01/10/19 22:00 01/12/19 09:18 Colace - PO 100 mg BID ELIJHA Administration Ferrous Sulfate 325 mg 01/11/19 08:00 01/12/19 09:18 Feosol - PO 325 mg BIDWM ELIJAH Administration Furosemide 80 mg 01/11/19 14:00 01/12/19 06:02 Lasix - PO 80 mg BID@0600,1400 ELIJAH Administration Heparin Sodium (Porcine) 5,000 unit 01/10/19 22:00 01/12/19 09:28 Heparin - SQ Not Given BID ELIJAH Labetalol HCl 400 mg 01/10/19 22:00 01/12/19 09:18 Normodyne - PO 400 mg BID ELIJAH Administration Pantoprazole Sodium 40 mg 01/11/19 10:00 01/12/19 09:18 Protonix - PO 40 mg DAILY ELIJAH Administration Phenytoin Sodium 200 mg 01/10/19 22:00 01/12/19 09:18 Dilantin - PO 200 mg BID ELIJAH Administration Impression 1. SOHAIL 2. lower ext edema 3. anemia 4. HTN 5. arthritis 6. nephrotic range proteinura 7. obesity 8. positive hep c virus on last admission 9. CKD Plan - refusing labs - refusing HD - spoke to her at length about morbidity and mortality - follow psych eval - cont lasix as she is overloaded - renal diet
[2019-01-12] MEDS: ATORVASTATIN CA 40 MG TABLET (FP) PO SCH (21:26)
--- NOTE | 2019-01-12 22:51 | PN ---
Progress Note, Physician - Current Medication List Current Medications: Active Medications Atorvastatin Calcium (Lipitor -) 40 mg PO HS [facility] Last Admin: 01/12/19 21:26 Dose: 40 mg Calcium Acetate (Phoslo -) 667 mg PO TIDCM [facility] Last Admin: 01/12/19 16:45 Dose: 667 mg Docusate Sodium (Colace -) 100 mg PO BID [facility] Last Admin: 01/12/19 21:26 Dose: 100 mg Ferrous Sulfate (Feosol -) 325 mg PO BIDWM [facility] Last Admin: 01/12/19 16:45 Dose: 325 mg Furosemide (Lasix -) 80 mg PO BID@0600,1400 [facility] Last Admin: 01/12/19 14:42 Dose: 80 mg Heparin Sodium (Porcine) (Heparin -) 5,000 unit SQ BID [facility] Last Admin: 01/12/19 21:25 Dose: Not Given Labetalol HCl (Normodyne -) 400 mg PO BID [facility] Last Admin: 01/12/19 21:25 Dose: 400 mg Pantoprazole Sodium (Protonix -) 40 mg PO DAILY [facility] Last Admin: 01/12/19 09:18 Dose: 40 mg Phenytoin Sodium (Dilantin -) 200 mg PO BID [facility] Last Admin: 01/12/19 21:26 Dose: 200 mg - Objective Vital Signs: Vital Signs Temperature 99.5 F 01/12/19 21:23 Pulse Rate 93 H 01/12/19 21:23 Respiratory Rate 18 01/12/19 21:23 Blood Pressure 156/88 01/12/19 21:23 O2 Sat by Pulse Oximetry (%) 96 01/11/19 21:00 Labs: CBC, BMP 01/10/19 13:15 01/10/19 13:15
[2019-01-13] MEDS: FUROSEMIDE 40 MG TABLET (FP) PO SCH ×2 (06:47→14:02)
[2019-01-13] MEDS: DOCUSATE SODIUM 100 MG CAPSULE (FP) PO SCH ×2 (09:02→21:48)
[2019-01-13] MEDS: PANTOPRAZOLE 40 MG TABLET (FP) PO SCH (09:02)
[2019-01-13] MEDS: CALCIUM ACETATE 667 MG CAPSULE (FP) PO SCH ×3 (09:02→17:41)
[2019-01-13] MEDS: FERROUS SO4 325 MG TABLET (FP) PO SCH ×2 (09:02→17:42)
[2019-01-13] MEDS: LABETALOL HCL 200 MG TABLET (FP) PO SCH ×2 (09:02→21:48)
[2019-01-13] MEDS: PHENYTOIN NA EXTENDED 100 MG CAPSULE (FP) PO SCH ×2 (09:02→21:47)
[2019-01-13] MEDS: HEPARIN NA (PORCINE) 5,000 UNITS/ML 1ML VIAL SQ SCH ×2 (09:10→21:48)
--- NOTE | 2019-01-13 09:48 | CON.PSY ---
Psychiatry Consult Chief Complaint: 58 yr old female with a histopry of ESRD and other chronic medical conditions seen for Psych eval to determine her capacity to make decisions. patient has been refusing Dialysis for the past 5yrs. patient said I am not Crazy and I dont wnt any dialysis. - Previous Psychiatric Treatment Outpatient: None Inpatient: None - Previous Substance Abuse Treatment Outpatient: None Inpatient: None - Current Medications Current Medications: Active Medications Atorvastatin Calcium (Lipitor -) 40 mg PO HS [facility] Last Admin: 01/12/19 21:26 Dose: 40 mg Calcium Acetate (Phoslo -) 667 mg PO TIDCM [facility] Last Admin: 01/13/19 09:02 Dose: 667 mg Docusate Sodium (Colace -) 100 mg PO BID [facility] Last Admin: 01/13/19 09:02 Dose: 100 mg Ferrous Sulfate (Feosol -) 325 mg PO BIDWM [facility] Last Admin: 01/13/19 09:02 Dose: 325 mg Furosemide (Lasix -) 80 mg PO BID@0600,1400 [facility] Last Admin: 01/13/19 06:47 Dose: 80 mg Heparin Sodium (Porcine) (Heparin -) 5,000 unit SQ BID [facility] Last Admin: 01/13/19 09:10 Dose: Not Given Labetalol HCl (Normodyne -) 400 mg PO BID [facility] Last Admin: 01/13/19 09:02 Dose: 400 mg Pantoprazole Sodium (Protonix -) 40 mg PO DAILY [facility] Last Admin: 01/13/19 09:02 Dose: 40 mg Phenytoin Sodium (Dilantin -) 200 mg PO BID [facility] Last Admin: 01/13/19 09:02 Dose: 200 mg - Allergies Allergies: Allergies Allergy/AdvReac Type Severity Reaction Status Date / Time No Known Allergies Allergy Verified 12/17/18 10:54 - Current Living Status Usual Living Arrangement: Alone - Current Mental Status Evaluation Appearance: Well Groomed Attitude: Cooperative - Affect Affect: Full Range Appropriateness: Appropriate to Content - Mood Mood: Euthymic - Speech/Language Expressive: Coherent - Psychomotor Activity Psychomotor Activity: Normal - Thought Process Thought Process: Intact - Thought Content Hallucinations: Absent Delusions: Absent - Self Perception Self Perception: No Impairment - Cognition Attention: Alert Orientation: Time Memory, Immediate Recall: Intact Memory, Short Term: 2/3 Memory, Remote with Promptin/3 - Concentration Serial Sevens Intact: No Simple Calculations Intact: Yes - Abstraction Proverb Interpretation: Intact Judgement: Minimally Impaired - Insight Insight: Intact - Impulse Control Impulse Control: Good Control - Suicidal Ideation Suicidal Ideation: No - Homicidal Ideation Homicidal Ideation: No Assessment/Plan 1) Patient has the Mental Capacity to make decisions at this time.
--- NOTE | 2019-01-13 12:06 | PN ---
Progress Note, Physician History of Present Illness: Pt seen and examined at bedside. She is still refusing labs. She does not want renal replacement therapy. - Current Medication List Current Medications: Active Medications Atorvastatin Calcium (Lipitor -) 40 mg PO HS [facility] Last Admin: 01/12/19 21:26 Dose: 40 mg Calcium Acetate (Phoslo -) 667 mg PO TIDCM [facility] Last Admin: 01/13/19 09:02 Dose: 667 mg Docusate Sodium (Colace -) 100 mg PO BID [facility] Last Admin: 01/13/19 09:02 Dose: 100 mg Ferrous Sulfate (Feosol -) 325 mg PO BIDWM [facility] Last Admin: 01/13/19 09:02 Dose: 325 mg Furosemide (Lasix -) 80 mg PO BID@0600,1400 [facility] Last Admin: 01/13/19 06:47 Dose: 80 mg Heparin Sodium (Porcine) (Heparin -) 5,000 unit SQ BID [facility] Last Admin: 01/13/19 09:10 Dose: Not Given Labetalol HCl (Normodyne -) 400 mg PO BID [facility] Last Admin: 01/13/19 09:02 Dose: 400 mg Pantoprazole Sodium (Protonix -) 40 mg PO DAILY [facility] Last Admin: 01/13/19 09:02 Dose: 40 mg Phenytoin Sodium (Dilantin -) 200 mg PO BID [facility] Last Admin: 01/13/19 09:02 Dose: 200 mg - Objective Vital Signs: Vital Signs Temperature 99 F 01/13/19 06:39 Pulse Rate 97 H 01/13/19 06:39 Respiratory Rate 18 01/13/19 06:39 Blood Pressure 117/94 01/13/19 06:39 O2 Sat by Pulse Oximetry (%) 96 01/13/19 09:00 Constitutional: Yes: Calm Eyes: Yes: Conjunctiva Clear HENT: Yes: Atraumatic Neck: Yes: Supple Cardiovascular: Yes: S1, S2 Respiratory: Yes: CTA Bilaterally Gastrointestinal: Yes: Soft, Abdomen, Obese Genitourinary: Yes: WNL Musculoskeletal: Yes: WNL Edema: Yes Edema: LLE: 2+, RLE: 2+ Integumentary: Yes: WNL Neurological: Yes: Oriented Psychiatric: Yes: Oriented Labs: CBC, BMP 01/10/19 13:15 01/10/19 13:15 Problem List - Problems (1) Anemia Code(s): D64.9 - ANEMIA, UNSPECIFIED Qualifiers: Anemia type: unspecified type Qualified Code(s): D64.9 - Anemia, unspecified (2) Hyperkalemia Code(s): E87.5 - HYPERKALEMIA (3) Renal failure Code(s): N19 - UNSPECIFIED KIDNEY FAILURE Qualifiers: Renal failure chronicity: unspecified chronicity Qualified Code(s): N19 - Unspecified kidney failure Assessment/Plan Current Medications Generic Name Dose Route Start Last Admin Trade Name Shannan PRN Reason Stop Dose Admin Atorvastatin Calcium 40 mg 01/10/19 22:00 01/12/19 21:26 Lipitor - PO 40 mg HS ELIJAH Administration Calcium Acetate 667 mg 01/11/19 17:30 01/13/19 09:02 Phoslo - PO 667 mg TIDCM ELIJAH Administration Docusate Sodium 100 mg 01/10/19 22:00 01/13/19 09:02 Colace - PO 100 mg BID ELIJAH Administration Ferrous Sulfate 325 mg 01/11/19 08:00 01/13/19 09:02 Feosol - PO 325 mg BIDWM ELIJAH Administration Furosemide 80 mg 01/11/19 14:00 01/13/19 06:47 Lasix - PO 80 mg BID@0600,1400 ELIJAH Administration Heparin Sodium (Porcine) 5,000 unit 01/10/19 22:00 01/13/19 09:10 Heparin - SQ Not Given BID ELIJAH Labetalol HCl 400 mg 01/10/19 22:00 01/13/19 09:02 Normodyne - PO 400 mg BID ELIJAH Administration Pantoprazole Sodium 40 mg 01/11/19 10:00 01/13/19 09:02 Protonix - PO 40 mg DAILY ELIJAH Administration Phenytoin Sodium 200 mg 01/10/19 22:00 01/13/19 09:02 Dilantin - PO 200 mg BID ELIJAH Administration Impression 1. SOHAIL 2. lower ext edema 3. anemia 4. HTN 5. arthritis 6. nephrotic range proteinura 7. obesity 8. positive hep c virus on last admission 9. CKD Plan - pt still refusing labs - psych input appreciated - pt refusing hd - cont lasix as she is overloaded - renal diet
[2019-01-13] MEDS ORDERED: ACETAMINOPHEN 325 MG TABLET (FP) PO ONE (15:00)
[2019-01-13] MEDS: guaiFENesin 200 MG/10 ML 10 ML UNIT-DOSE CUPS PO PRN (15:14)
--- NOTE | 2019-01-13 19:51 | PN ---
Progress Note, Physician History of Present Illness: refusing labs and hd - Current Medication List Current Medications: Active Medications Atorvastatin Calcium (Lipitor -) 40 mg PO HS [facility] Last Admin: 01/12/19 21:26 Dose: 40 mg Calcium Acetate (Phoslo -) 667 mg PO TIDCM [facility] Last Admin: 01/13/19 17:41 Dose: 667 mg Docusate Sodium (Colace -) 100 mg PO BID [facility] Last Admin: 01/13/19 09:02 Dose: 100 mg Ferrous Sulfate (Feosol -) 325 mg PO BIDWM [facility] Last Admin: 01/13/19 17:42 Dose: 325 mg Furosemide (Lasix -) 80 mg PO BID@0600,1400 [facility] Last Admin: 01/13/19 14:02 Dose: 80 mg Guaifenesin (Robitussin -) 10 ml PO Q6H PRN PRN Reason: COUGH Last Admin: 01/13/19 15:14 Dose: 10 ml Heparin Sodium (Porcine) (Heparin -) 5,000 unit SQ BID [facility] Last Admin: 01/13/19 09:10 Dose: Not Given Labetalol HCl (Normodyne -) 400 mg PO BID [facility] Last Admin: 01/13/19 09:02 Dose: 400 mg Pantoprazole Sodium (Protonix -) 40 mg PO DAILY [facility] Last Admin: 01/13/19 09:02 Dose: 40 mg Phenytoin Sodium (Dilantin -) 200 mg PO BID [facility] Last Admin: 01/13/19 09:02 Dose: 200 mg - Objective Vital Signs: Vital Signs Temperature 99.1 F 01/13/19 16:30 Pulse Rate 96 H 01/13/19 16:30 Respiratory Rate 18 01/13/19 16:30 Blood Pressure 151/97 01/13/19 16:30 O2 Sat by Pulse Oximetry (%) 96 01/13/19 09:00 Constitutional: Yes: No Distress HENT: Yes: Atraumatic Neck: Yes: Supple Cardiovascular: Yes: Regular Rate and Rhythm Respiratory: Yes: CTA Bilaterally Extremities: Yes: WNL Edema: Yes Edema: LLE: 1+, RLE: 1+ Neurological: Yes: Alert, Oriented Labs: CBC, BMP 01/10/19 13:15 01/10/19 13:15 Problem List - Problems (1) HTN (hypertension) Code(s): I10 - ESSENTIAL (PRIMARY) HYPERTENSION Qualifiers: Hypertension type: essential hypertension Qualified Code(s): I10 - Essential (primary) hypertension (2) Hyperkalemia Assessment/Plan: patient refusing HD d/w dr espinoza Code(s): E87.5 - HYPERKALEMIA (3) Renal failure Code(s): N19 - UNSPECIFIED KIDNEY FAILURE Qualifiers: Renal failure chronicity: unspecified chronicity Qualified Code(s): N19 - Unspecified kidney failure (4) Seizure disorder Code(s): G40.909 - EPILEPSY, UNSP, NOT INTRACTABLE, WITHOUT STATUS EPILEPTICUS (5) Anemia Assessment/Plan: refusing labs Code(s): D64.9 - ANEMIA, UNSPECIFIED Qualifiers: Anemia type: unspecified type Qualified Code(s): D64.9 - Anemia, unspecified
[2019-01-13] MEDS: ATORVASTATIN CA 40 MG TABLET (FP) PO SCH (21:47)
[2019-01-14] MEDS: FUROSEMIDE 40 MG TABLET (FP) PO SCH ×2 (06:23→17:09)
[2019-01-14] MEDS: guaiFENesin 200 MG/10 ML 10 ML UNIT-DOSE CUPS PO PRN ×2 (06:27→21:07)
[2019-01-14] MEDS: CALCIUM ACETATE 667 MG CAPSULE (FP) PO SCH ×2 (10:24→17:07)
[2019-01-14] MEDS: DOCUSATE SODIUM 100 MG CAPSULE (FP) PO SCH ×2 (10:24→21:06)
[2019-01-14] MEDS: PANTOPRAZOLE 40 MG TABLET (FP) PO SCH (10:24)
[2019-01-14] MEDS: FERROUS SO4 325 MG TABLET (FP) PO SCH ×2 (10:24→18:04)
[2019-01-14] MEDS: PHENYTOIN NA EXTENDED 100 MG CAPSULE (FP) PO SCH ×2 (10:24→21:04)
[2019-01-14] MEDS: LABETALOL HCL 200 MG TABLET (FP) PO SCH ×2 (10:24→21:05)
[2019-01-14] MEDS: HEPARIN NA (PORCINE) 5,000 UNITS/ML 1ML VIAL SQ SCH ×2 (10:25→21:04)
--- NOTE | 2019-01-14 11:21 | PN ---
Progress Note, Physician History of Present Illness: Pt seen and examined at bedside. Discussed HD with her at length. SHe now agrees. - Current Medication List Current Medications: Active Medications Atorvastatin Calcium (Lipitor -) 40 mg PO HS [facility] Last Admin: 01/13/19 21:47 Dose: 40 mg Calcium Acetate (Phoslo -) 667 mg PO TIDCM [facility] Last Admin: 01/14/19 10:24 Dose: 667 mg Docusate Sodium (Colace -) 100 mg PO BID [facility] Last Admin: 01/14/19 10:24 Dose: 100 mg Ferrous Sulfate (Feosol -) 325 mg PO BIDWM [facility] Last Admin: 01/14/19 10:24 Dose: 325 mg Furosemide (Lasix -) 80 mg PO BID@0600,1400 [facility] Last Admin: 01/14/19 06:23 Dose: 80 mg Guaifenesin (Robitussin -) 10 ml PO Q6H PRN PRN Reason: COUGH Last Admin: 01/14/19 06:27 Dose: 10 ml Heparin Sodium (Porcine) (Heparin -) 5,000 unit SQ BID [facility] Last Admin: 01/14/19 10:25 Dose: Not Given Labetalol HCl (Normodyne -) 400 mg PO BID [facility] Last Admin: 01/14/19 10:24 Dose: 400 mg Pantoprazole Sodium (Protonix -) 40 mg PO DAILY [facility] Last Admin: 01/14/19 10:24 Dose: 40 mg Phenytoin Sodium (Dilantin -) 200 mg PO BID [facility] Last Admin: 01/14/19 10:24 Dose: 200 mg - Objective Vital Signs: Vital Signs Temperature 99.6 F 01/14/19 06:00 Pulse Rate 103 H 01/14/19 10:19 Respiratory Rate 18 01/14/19 10:19 Blood Pressure 124/62 01/14/19 10:19 O2 Sat by Pulse Oximetry (%) 96 01/13/19 09:00 Constitutional: Yes: Calm Eyes: Yes: Conjunctiva Clear HENT: Yes: Atraumatic Cardiovascular: Yes: S1, S2 Respiratory: Yes: CTA Bilaterally Gastrointestinal: Yes: Soft, Abdomen, Obese Genitourinary: Yes: WNL Musculoskeletal: Yes: WNL Edema: Yes Edema: LLE: 2+, RLE: 2+ Neurological: Yes: Oriented Psychiatric: Yes: Oriented Labs: CBC, BMP 01/10/19 13:15 01/10/19 13:15 Problem List - Problems (1) Anemia Code(s): D64.9 - ANEMIA, UNSPECIFIED Qualifiers: Anemia type: unspecified type Qualified Code(s): D64.9 - Anemia, unspecified (2) Hyperkalemia Code(s): E87.5 - HYPERKALEMIA (3) Renal failure Code(s): N19 - UNSPECIFIED KIDNEY FAILURE Qualifiers: Renal failure chronicity: unspecified chronicity Qualified Code(s): N19 - Unspecified kidney failure Assessment/Plan Current Medications Generic Name Dose Route Start Last Admin Trade Name Freq PRN Reason Stop Dose Admin Atorvastatin Calcium 40 mg 01/10/19 22:00 01/13/19 21:47 Lipitor - PO 40 mg HS [facility]AH Administration Calcium Acetate 667 mg 01/11/19 17:30 01/14/19 10:24 Phoslo - PO 667 mg TIDCM [facility]AH Administration Docusate Sodium 100 mg 01/10/19 22:00 01/14/19 10:24 Colace - PO 100 mg BID [facility] Administration Ferrous Sulfate 325 mg 01/11/19 08:00 01/14/19 10:24 Feosol - PO 325 mg BIDWM [facility] Administration Furosemide 80 mg 01/11/19 14:00 01/14/19 06:23 Lasix - PO 80 mg BID@0600,1400 [facility] Administration Guaifenesin 10 ml 01/13/19 15:00 01/14/19 06:27 Robitussin - PO 10 ml Q6H PRN Administration COUGH Heparin Sodium (Porcine) 5,000 unit 01/10/19 22:00 01/14/19 10:25 Heparin - SQ Not Given BID ELIJAH Labetalol HCl 400 mg 01/10/19 22:00 01/14/19 10:24 Normodyne - PO 400 mg BID [facility] Administration Pantoprazole Sodium 40 mg 01/11/19 10:00 01/14/19 10:24 Protonix - PO 40 mg DAILY [facility] Administration Phenytoin Sodium 200 mg 01/10/19 22:00 01/14/19 10:24 Dilantin - PO 200 mg BID [facility]AH Administration Impression 1. SOHAIL 2. lower ext edema 3. anemia 4. HTN 5. arthritis 6. nephrotic range proteinura 7. obesity 8. positive hep c virus on last admission 9. CKD Plan - pt now agrees to HD - called vascular for mari - will start HD today - check labs - hold lasix for now - renal diet
[2019-01-14] MEDS ORDERED: EPOETIN ALFA 2,000 UNIT/1 ML VIAL IVPUSH ONE (11:22)
[2019-01-14] MEDS ORDERED: ACETAMINOPHEN 325 MG TABLET (FP) PO ONE (11:52)
--- NOTE | 2019-01-14 11:54 | CON.ID ---
Consult Consult Specialty:: infectious diseases Referred by:: Reason for Consultation:: fever - History of Present Illness Chief Complaint: weakness,fever History of Present Illness: 58 year old female with pmhx of CKD, htn, athritis, anemia, and cva who was sent in after a fall. She was recently admitted with renal failure. She was found to have worsening renal failure in the ER . She denies shortness of breath but she complains of lower ext edema. She denies chest pain or palpitations. She was also found to be hyperkalemic. She denies loss of appetite. patient has been not been feeling well and does not look too good patient also has been spiking fevers from yesterday currently patient says she feels very sick also c/o of pain in her rt arm which is also swollen - History Source History Provided By: Patient Limitations to Obtaining History: Poor Historian - Past Medical History JIGSAWYER: Yes: Peripheral Neuropathy Cardio/Vascular: Yes: HTN Renal/: Yes: Renal Failure, Renal Inusuff Musculoskeletal: Yes: Osteoarthritis - Alcohol/Substance Use Hx Alcohol Use: No History of Substance Use: reports: None - Smoking History Smoking history: Current every day smoker Have you smoked in the past 12 months: Yes Aproximately how many cigarettes per day: 10 - Social History Usual Living Arrangement: Alone ADL: Support Services ([facility] 9A -2p x 7days per week) 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 History of Recent Travel: No Home Medications - Allergies Allergies/Adverse Reactions: Allergies Allergy/AdvReac Type Severity Reaction Status Date / Time No Known Allergies Allergy Verified 12/17/18 10:54 - Home Medications Home Medications: Ambulatory Orders Amlodipine Besylate 5 mg PO DAILY 12/17/18 Calcium Carbonate [Oysco-500] 500 mg PO DAILY 12/17/18 Calcium Carbonate/Vitamin D3 [Oyster Shell 500-Vit D3 200 Tb] 1 each PO DAILY Ferrous Sulfate 325 mg PO DAILY 12/17/18 Gabapentin 300 mg PO TID 12/17/18 Phenytoin Sodium Extended 200 mg PO BID 12/17/18 Amlodipine Besylate [Norvasc -] 5 mg PO DAILY tablet 12/24/18 Atorvastatin Ca [Lipitor] 40 mg PO HS tablet 12/24/18 Cephalexin Monohydrate [Keflex -] 500 mg PO BID capsule 12/24/18 Docusate Sodium [Colace -] 100 mg PO BID capsule 12/24/18 Ferrous Sulfate [Feosol] 325 mg PO BIDWM ud 12/24/18 Heparin - 5,000 unit SQ TID vial 12/24/18 Labetalol HCl [Normodyne -] 400 mg PO BID tablet 12/24/18 Pantoprazole Sodium [Protonix -] 40 mg PO DAILY tablet.ec 12/24/18 Pantoprazole Sodium [Protonix -] 40 mg PO DAILY tablet.ec 12/24/18 Sennosides [Senna -] 2 tab PO HS tablet 12/24/18 Sennosides [Senna -] 2 tab PO HS tablet 12/24/18 Family Disease History - Family Disease History Family Disease History: Other: Father ( (60+) CVA, h/p amputation), Mother ( (60+) HTN), Brother ( (23) drug overdose) Review of Systems - Review of Systems Constitutional: reports: Fever, Weakness Eyes: reports: No Symptoms HENT: reports: No Symptoms Neck: reports: No Symptoms Cardiovascular: reports: No Symptoms Respiratory: reports: No Symptoms Gastrointestinal: reports: No Symptoms Genitourinary: reports: No Symptoms Musculoskeletal: reports: No Symptoms Physical Exam Vital Signs: Vital Signs Temperature 102.6 F H 01/14/19 11:50 Pulse Rate 103 H 01/14/19 10:19 Respiratory Rate 18 01/14/19 10:19 Blood Pressure 124/62 01/14/19 10:19 O2 Sat by Pulse Oximetry (%) 96 01/13/19 09:00 Constitutional: Yes: Calm, Mild Distress Eyes: Yes: Conjunctiva Clear HENT: Yes: Atraumatic, Normocephalic Neck: Yes: Supple, Trachea Midline Cardiovascular: Yes: Regular Rate and Rhythm Respiratory: Yes: Regular, CTA Bilaterally Gastrointestinal: Yes: Normal Bowel Sounds, Soft Musculoskeletal: Yes: Other Extremities: Yes: Other (rt arm tender and swollen patient fell on the rt arm) Neurological: Yes: Alert, Oriented Psychiatric: Yes: Alert, Oriented Labs: CBC, BMP 01/10/19 13:15 01/10/19 13:15 Imaging - Results Chest X-ray: Report Reviewed, Image Reviewed Cat Scan: Report Reviewed, Image Reviewed Assessment/Plan patient looks sick and i am worried that she might take turn for the worse,labd have been ordered ,uncollected Problem List - Problems (1) Anemia Code(s): D64.9 - ANEMIA, UNSPECIFIED Qualifiers: Anemia type: unspecified type Qualified Code(s): D64.9 - Anemia, unspecified (2) Hyperkalemia Code(s): E87.5 - HYPERKALEMIA (3) Renal failure Code(s): N19 - UNSPECIFIED KIDNEY FAILURE Qualifiers: Renal failure chronicity: unspecified chronicity Qualified Code(s): N19 - Unspecified kidney failure sepsis fever plan i am going to initiate zosyn await for blood work very close watch blood cx consider xray of the rt hand patient needs abx
--- NOTE | 2019-01-14 12:48 | PN ---
Progress Note (short form) - Note Progress Note: Asked by Kaity/Nikki if I can place a shiley catheter today. WIll do once I have results of coag profile (ordered).
[2019-01-14 14:11] LABS: BASO % 1.4 % (0-2.0); EOS % 2.5 % (0-4.5); HEMATOCRIT 20.8 % (32.4-45.2); LYMPH % 19.3 % (8-40); MCH 26.9 pg (25.7-33.7); MCHC 32.1 g/dl (32.0-36.0); MEAN PLT VOLUME 6.2 fl (7.5-11.1); MONO % 8.1 % (3.8-10.2); NEUT % 68.7 % (42.8-82.8); PLATELET COUNT 341 K/MM3 (134-434); RBC 2.47 M/mm3 (3.60-5.2); RDW 16.3 % (11.6-15.6); WHITE BLOOD COUNT 7.9 K/mm3 (4.0-10.0)
[2019-01-14 14:18] LABS: HEMOGLOBIN 6.7 GM/dL (10.7-15.3)
[2019-01-14 14:23] LABS: PROTHROMBIN TIME (PATIENT) 11.8 SEC (9.7-13.0)
[2019-01-14 14:42] LABS: ALBUMIN 1.3 g/dl (3.4-5.0); BILIRUBIN,TOTAL 0.2 mg/dL (0.2-1); POTASSIUM 4.9 mmol/L (3.5-5.1); TOT PROT 4.3 g/dl (6.4-8.2)
[2019-01-14 14:46] LABS: CALCIUM 6.4 mg/dL (8.5-10.1); CREATININE 8.6 mg/dL (0.55-1.3)
--- NOTE | 2019-01-14 15:02 | PN ---
Progress Note, Physician History of Present Illness: agree to do hd - Current Medication List Current Medications: Active Medications Atorvastatin Calcium (Lipitor -) 40 mg PO HS [facility] Last Admin: 01/13/19 21:47 Dose: 40 mg Calcium Acetate (Phoslo -) 667 mg PO TIDCM [facility] Last Admin: 01/14/19 10:24 Dose: 667 mg Docusate Sodium (Colace -) 100 mg PO BID [facility] Last Admin: 01/14/19 10:24 Dose: 100 mg Epoetin Ziyad (Epogen -) 5,000 unit IVPUSH ONCE ONE Stop: 01/14/19 11:23 Ferrous Sulfate (Feosol -) 325 mg PO BIDWM [facility] Last Admin: 01/14/19 10:24 Dose: 325 mg Furosemide (Lasix -) 80 mg PO BID@0600,1400 [facility] Last Admin: 01/14/19 06:23 Dose: 80 mg Guaifenesin (Robitussin -) 10 ml PO Q6H PRN PRN Reason: COUGH Last Admin: 01/14/19 06:27 Dose: 10 ml Heparin Sodium (Porcine) (Heparin -) 5,000 unit SQ BID [facility] Last Admin: 01/14/19 10:25 Dose: Not Given Sodium Chloride (Normal Saline -) 250 mls @ 3,000 mls/hr IV PRN PRN PRN Reason: Hypotension during Dialysis Stop: 01/15/19 11:22 Piperacillin Sod/Tazobactam (Sod 2.25 gm/ Dextrose) 50 mls @ 100 mls/hr IVPB Q6H-IV [facility]AH; Protocol Labetalol HCl (Normodyne -) 400 mg PO BID [facility] Last Admin: 01/14/19 10:24 Dose: 400 mg Pantoprazole Sodium (Protonix -) 40 mg PO DAILY [facility] Last Admin: 01/14/19 10:24 Dose: 40 mg Phenytoin Sodium (Dilantin -) 200 mg PO BID [facility] Last Admin: 01/14/19 10:24 Dose: 200 mg - Objective Vital Signs: Vital Signs Temperature 102.6 F H 01/14/19 11:50 Pulse Rate 103 H 01/14/19 10:19 Respiratory Rate 18 01/14/19 10:19 Blood Pressure 124/62 01/14/19 10:19 O2 Sat by Pulse Oximetry (%) 96 01/13/19 09:00 Constitutional: Yes: No Distress HENT: Yes: Atraumatic Neck: Yes: Supple Cardiovascular: Yes: Regular Rate and Rhythm Respiratory: Yes: Rhonchi Gastrointestinal: Yes: Normal Bowel Sounds Extremities: Yes: WNL Edema: No Peripheral Pulses WNL: Yes Neurological: Yes: Alert, Oriented Labs: CBC, BMP 01/14/19 13:50 01/14/19 13:50 INR, PTT INR 1.00 (0.83-1.09) 01/14/19 13:50 Problem List - Problems (1) HTN (hypertension) Code(s): I10 - ESSENTIAL (PRIMARY) HYPERTENSION Qualifiers: Hypertension type: essential hypertension Qualified Code(s): I10 - Essential (primary) hypertension (2) Hyperkalemia Assessment/Plan: patient refusing HD d/w dr espinoza Code(s): E87.5 - HYPERKALEMIA (3) Renal failure Assessment/Plan: for HD Code(s): N19 - UNSPECIFIED KIDNEY FAILURE Qualifiers: Renal failure chronicity: unspecified chronicity Qualified Code(s): N19 - Unspecified kidney failure (4) Seizure disorder Code(s): G40.909 - EPILEPSY, UNSP, NOT INTRACTABLE, WITHOUT STATUS EPILEPTICUS (5) Anemia Assessment/Plan: refusing labs Code(s): D64.9 - ANEMIA, UNSPECIFIED Qualifiers: Anemia type: unspecified type Qualified Code(s): D64.9 - Anemia, unspecified (6) Acute on chronic diastolic CHF (congestive heart failure) Code(s): I50.33 - ACUTE ON CHRONIC DIASTOLIC (CONGESTIVE) HEART FAILURE (7) Hypercholesterolemia Code(s): E78.00 - PURE HYPERCHOLESTEROLEMIA, UNSPECIFIED (8) Seizures Code(s): R56.9 - UNSPECIFIED CONVULSIONS
--- NOTE | 2019-01-14 15:38 | PROC ---
Central Line Insertion - Procedure Note TIME OUT performed prior to this procedure with verbal confirmation of correct patient identity, correct side, agreement of the procedure, correct patient position, availability of necessary equipment. The consent form is complete and accurate. Risk of possible infection, bleeding and pneumothorax have been discussed with the patient. Safety precautions based on patient history or medication use has been addressed. INR 1.00 Indication: Other (Neds HD) Consent on Chart: Yes Central Line: Dialysis Cath, Tri Lumen Position: Supine Area prepped with Chlorhexidine solution then draped using sterile barrier protection. Anesthesia: Lidocaine 1% Technique used: Seldinger Ultrasound Guided Assistance: Yes Site: Right Internal Jugular Dark venous non-pulsatile flow noted from hub of needle. The catheter was introduced. Guide wire removed intact. Each port aspirated then flushed with sterile normal saline and capped. Line secured to skin with silk suture. Biopatch placed around base of line. Sterile occlusive dressing applied. No complications. Patient tolerated the procedure well. STAT chest xray ordered to confirm position and rule out pneumothorax
[2019-01-14] MEDS ORDERED: PIPERACILLIN/TAZOBACTAM 2.25 GM VIAL IVPB ONE ×2 (15:45→21:00)
[2019-01-14] MEDS ORDERED: DEXTROSE 5%-WATER - 50 ML IVPB ONE ×2 (15:45→21:00)
[2019-01-14] MEDS: PIPERACILLIN/TAZOB 2.25 GM 2.25 GM in DEXTROSE 5%-WATER - 50 ML IVPB SCH ×4 (17:05→21:04)
[2019-01-14] MEDS ORDERED: INSULIN (NOVOLOG) ASPART 100 UNITS/ML 10ML VIAL ONE (18:24)
[2019-01-14] MEDS ORDERED: SODIUM CHLORIDE 250 ML IV PRN (20:00)
[2019-01-14] MEDS ORDERED: EPOETIN ALFA 3,000 UNIT, EPOETIN ALFA 2,000 UNIT IVPUSH ONE (20:00)
[2019-01-14] MEDS: ATORVASTATIN CA 40 MG TABLET (FP) PO SCH (21:05)
--- NOTE | 2019-01-15 00:04 | PN ---
Progress Note, Physician Chief Complaint: Pt alert; denies chest pain or dyspnea; Shiley catheter placed today. History of Present Illness: The patient is a 58 year old black female with a past medical history of HTN, copd chronic arthritis, and CVA (2017, 2018) anemia, CKD, diastolic chf, seizure disorder here today for evaluation of lower extremity edema. The patient reports that she has had 3 weeks of bilateral lower extremity edema which has been getting progressively worse. She also notes an intermittent productive cough of yellow sputum. today she was getting up from toilet and lost her balance, fell over. states she got tangled in pants trying to pull them up. Patient denies headache, lightheadedness. Denies fever, chills. Denies chest pain, shortness of breath. Denies nausea, vomiting, diarrhea, abdominal pain. Allergies: NKA Social history: Patient confirms tobacco use ( pack per day for the last 40 years). Denies illicit drugs or alcohol use. - Current Medication List Current Medications: Active Medications Albuterol/Ipratropium (Duoneb -) 1 amp NEB Q4H PRN PRN Reason: SHORT OF BREATH/WHEEZING Atorvastatin Calcium (Lipitor -) 40 mg PO HS [facility] Last Admin: 01/14/19 21:05 Dose: 40 mg Calcium Acetate (Phoslo -) 667 mg PO TIDCM [facility] Last Admin: 01/14/19 17:07 Dose: Not Given Docusate Sodium (Colace -) 100 mg PO BID [facility] Last Admin: 01/14/19 21:06 Dose: 100 mg Ferrous Sulfate (Feosol -) 325 mg PO BIDWM [facility] Last Admin: 01/14/19 18:04 Dose: Not Given Guaifenesin (Robitussin -) 10 ml PO Q6H PRN PRN Reason: COUGH Last Admin: 01/14/19 21:07 Dose: 10 ml Heparin Sodium (Porcine) (Heparin -) 5,000 unit SQ BID [facility] Last Admin: 01/14/19 21:04 Dose: 5,000 unit Sodium Chloride (Normal Saline -) 250 mls @ 3,000 mls/hr IV PRN PRN PRN Reason: Hypotension during Dialysis Stop: 01/15/19 19:59 Piperacillin Sod/Tazobactam (Sod 2.25 gm/ Dextrose) 50 mls @ 100 mls/hr IVPB Q6H-IV [facility]; Protocol Last Admin: 01/14/19 21:04 Dose: Not Given Labetalol HCl (Normodyne -) 400 mg PO BID [facility] Last Admin: 01/14/19 21:05 Dose: 400 mg Pantoprazole Sodium (Protonix -) 40 mg PO DAILY [facility] Last Admin: 01/14/19 10:24 Dose: 40 mg Phenytoin Sodium (Dilantin -) 200 mg PO BID [facility] Last Admin: 01/14/19 21:04 Dose: 200 mg - Objective Vital Signs: Vital Signs Temperature 102.6 F H 01/14/19 11:50 Pulse Rate 103 H 01/14/19 19:45 Respiratory Rate 18 01/14/19 19:45 Blood Pressure 169/87 01/14/19 19:45 O2 Sat by Pulse Oximetry (%) 94 L 01/14/19 21:00 Constitutional: Yes: Anxious Eyes: Yes: WNL HENT: Yes: WNL Neck: Yes: WNL Cardiovascular: Yes: S1, S2, S4 Gastrointestinal: Yes: Soft, Abdomen, Obese ...Rectal Exam: Yes: Deferred Genitourinary: No: Anuria Breast(s): Yes: WNL Musculoskeletal: Yes: Joint Stiffness Extremities: Yes: Cool Edema: No Peripheral Pulses WNL: Yes Neurological: Yes: Alert Labs: CBC, BMP 01/14/19 13:50 01/14/19 13:50 INR, PTT INR 1.00 (0.83-1.09) 01/14/19 13:50 - ....Imaging Chest X-ray: Image Reviewed (mild CHF changes) Problem List - Problems (1) Acute on chronic diastolic CHF (congestive heart failure) Assessment/Plan: On losartan and labetolol. Achieve tighter control of BP. F/u BUN/Cr, electrolytes, daily wt, Is and Os. Code(s): I50.33 - ACUTE ON CHRONIC DIASTOLIC (CONGESTIVE) HEART FAILURE (2) Anemia Code(s): D64.9 - ANEMIA, UNSPECIFIED Qualifiers: Anemia type: unspecified type Qualified Code(s): D64.9 - Anemia, unspecified (3) Hypercholesterolemia Assessment/Plan: on atorvastatin; increase dose to keep LDL < 70 mg/dl. Code(s): E78.00 - PURE HYPERCHOLESTEROLEMIA, UNSPECIFIED (4) Renal failure Assessment/Plan: hemodialysis per personal consultant. Code(s): N19 - UNSPECIFIED KIDNEY FAILURE Qualifiers: Renal failure chronicity: unspecified chronicity Qualified Code(s): N19 - Unspecified kidney failure (5) Cigarette nicotine dependence Code(s): F17.210 - NICOTINE DEPENDENCE, CIGARETTES, UNCOMPLICATED (6) [place] cardiac risk >20% in next 10 years Assessment/Plan: stress MIBI when stable, if not done recentlyl Code(s): Z91.89 - OTH PERSONAL RISK FACTORS, NOT ELSEWHERE CLASSIFIED (7) Hypertensive emergency Assessment/Plan: On labetolol 400 mg bid. Losartan added; f/u BP serially. Code(s): I16.1 - HYPERTENSIVE EMERGENCY (8) Lower extremity edema Code(s): R60.0 - LOCALIZED EDEMA (9) Seizures Code(s): R56.9 - UNSPECIFIED CONVULSIONS
[2019-01-15] MEDS: ALBUTEROL SO4 2.5/IPRATROPIUM 0.5 INH SOL 3 ML VIAL.NEB. NEB PRN ×2 (02:30→12:00)
[2019-01-15] MEDS: PIPERACILLIN/TAZOB 2.25 GM 2.25 GM in DEXTROSE 5%-WATER - 50 ML IVPB SCH ×4 (07:31→21:35)
[2019-01-15 09:21] LABS: PHOSPHOROUS 8.5 mg/dL (2.5-4.9)
[2019-01-15] MEDS ORDERED: DEXTROSE 5%-WATER - 50 ML IVPB ONE ×3 (09:47→21:00)
[2019-01-15] MEDS ORDERED: PIPERACILLIN/TAZOBACTAM 2.25 GM VIAL IVPB ONE ×3 (09:47→20:59)
[2019-01-15] MEDS ORDERED: SODIUM CHLORIDE 250 ML IV PRN (10:07)
[2019-01-15] MEDS: FERROUS SO4 325 MG TABLET (FP) PO SCH ×2 (11:17→17:49)
[2019-01-15] MEDS: PANTOPRAZOLE 40 MG TABLET (FP) PO SCH (11:17)
[2019-01-15] MEDS: DOCUSATE SODIUM 100 MG CAPSULE (FP) PO SCH ×2 (11:17→21:36)
[2019-01-15] MEDS: CALCIUM ACETATE 667 MG CAPSULE (FP) PO SCH ×3 (11:17→17:50)
[2019-01-15] MEDS: PHENYTOIN NA EXTENDED 100 MG CAPSULE (FP) PO SCH ×2 (11:17→21:36)
[2019-01-15] MEDS: LABETALOL HCL 200 MG TABLET (FP) PO SCH ×2 (11:18→21:36)
[2019-01-15] MEDS: HEPARIN NA (PORCINE) 5,000 UNITS/ML 1ML VIAL SQ SCH ×3 (11:29→21:37)
[2019-01-15] MEDS: guaiFENesin 200 MG/10 ML 10 ML UNIT-DOSE CUPS PO PRN (11:31)
--- NOTE | 2019-01-15 11:46 | PN ---
Progress Note, Physician History of Present Illness: patient looking much better no complaints - Current Medication List Current Medications: Active Medications Albuterol/Ipratropium (Duoneb -) 1 amp NEB Q4H PRN PRN Reason: SHORT OF BREATH/WHEEZING Last Admin: 01/15/19 02:30 Dose: 1 amp Atorvastatin Calcium (Lipitor -) 40 mg PO HS [facility] Last Admin: 01/14/19 21:05 Dose: 40 mg Calcium Acetate (Phoslo -) 667 mg PO TIDCM [facility] Last Admin: 01/15/19 11:35 Dose: Not Given Docusate Sodium (Colace -) 100 mg PO BID [facility] Last Admin: 01/15/19 11:17 Dose: 100 mg Epoetin Ziyad (Procrit -) 10,000 unit IVPUSH ONCE ONE Stop: 01/15/19 10:08 Ferrous Sulfate (Feosol -) 325 mg PO BIDWM [facility] Last Admin: 01/15/19 11:17 Dose: 325 mg Guaifenesin (Robitussin -) 10 ml PO Q6H PRN PRN Reason: COUGH Last Admin: 01/15/19 11:31 Dose: 10 ml Heparin Sodium (Porcine) (Heparin -) 5,000 unit SQ BID [facility] Last Admin: 01/15/19 11:35 Dose: Not Given Sodium Chloride (Normal Saline -) 250 mls @ 3,000 mls/hr IV PRN PRN PRN Reason: Hypotension during Dialysis Stop: 01/15/19 19:59 Piperacillin Sod/Tazobactam (Sod 2.25 gm/ Dextrose) 50 mls @ 100 mls/hr IVPB Q6H-IV [facility]; Protocol Last Admin: 01/15/19 11:20 Dose: 100 mls/hr Sodium Chloride (Normal Saline -) 250 mls @ 3,000 mls/hr IV PRN PRN PRN Reason: Hypotension during Dialysis Stop: 01/16/19 10:07 Labetalol HCl (Normodyne -) 400 mg PO BID [facility] Last Admin: 01/15/19 11:18 Dose: 400 mg Pantoprazole Sodium (Protonix -) 40 mg PO DAILY [facility] Last Admin: 01/15/19 11:17 Dose: 40 mg Phenytoin Sodium (Dilantin -) 200 mg PO BID [facility] Last Admin: 01/15/19 11:17 Dose: 200 mg - Objective Vital Signs: Vital Signs Temperature 99.4 F 01/15/19 06:44 Pulse Rate 96 H 01/15/19 06:44 Respiratory Rate 20 01/15/19 09:00 Blood Pressure 142/94 01/15/19 06:44 O2 Sat by Pulse Oximetry (%) 95 01/15/19 09:00 Constitutional: Yes: No Distress, Calm Cardiovascular: Yes: S1, S2 Respiratory: Yes: Regular, CTA Bilaterally Gastrointestinal: Yes: Normal Bowel Sounds, Soft Musculoskeletal: Yes: Other Extremities: Yes: WNL Neurological: Yes: Alert, Oriented Psychiatric: Yes: Alert, Oriented Labs: CBC, BMP 01/14/19 13:50 01/14/19 13:50 INR, PTT INR 1.00 (0.83-1.09) 01/14/19 13:50 Assessment/Plan patient looks sick and i am worried that she might take turn for the worse,labd have been ordered ,uncollected Problem List - Problems (1) Anemia Code(s): D64.9 - ANEMIA, UNSPECIFIED Qualifiers: Anemia type: unspecified type Qualified Code(s): D64.9 - Anemia, unspecified (2) Hyperkalemia Code(s): E87.5 - HYPERKALEMIA (3) Renal failure Code(s): N19 - UNSPECIFIED KIDNEY FAILURE Qualifiers: Renal failure chronicity: unspecified chronicity Qualified Code(s): N19 - Unspecified kidney failure sepsis fever plan continue abx await for blood cx reports close watch dialysis rest as per the team
--- NOTE | 2019-01-15 13:45 | PN ---
Progress Note, Physician History of Present Illness: Pt seen and examined at bedside. She tolerated HD yesterday. She denies shortness of breath. - Current Medication List Current Medications: Active Medications Albuterol/Ipratropium (Duoneb -) 1 amp NEB Q4H PRN PRN Reason: SHORT OF BREATH/WHEEZING Last Admin: 01/15/19 12:00 Dose: 1 amp Atorvastatin Calcium (Lipitor -) 40 mg PO HS [facility] Last Admin: 01/14/19 21:05 Dose: 40 mg Calcium Acetate (Phoslo -) 667 mg PO TIDCM [facility] Last Admin: 01/15/19 11:35 Dose: Not Given Docusate Sodium (Colace -) 100 mg PO BID [facility] Last Admin: 01/15/19 11:17 Dose: 100 mg Epoetin Ziyad (Procrit -) 10,000 unit IVPUSH ONCE ONE Stop: 01/15/19 10:08 Ferrous Sulfate (Feosol -) 325 mg PO BIDWM [facility] Last Admin: 01/15/19 11:17 Dose: 325 mg Guaifenesin (Robitussin -) 10 ml PO Q6H PRN PRN Reason: COUGH Last Admin: 01/15/19 11:31 Dose: 10 ml Heparin Sodium (Porcine) (Heparin -) 5,000 unit SQ BID [facility] Last Admin: 01/15/19 11:35 Dose: Not Given Sodium Chloride (Normal Saline -) 250 mls @ 3,000 mls/hr IV PRN PRN PRN Reason: Hypotension during Dialysis Stop: 01/15/19 19:59 Piperacillin Sod/Tazobactam (Sod 2.25 gm/ Dextrose) 50 mls @ 100 mls/hr IVPB Q6H-IV [facility]; Protocol Last Admin: 01/15/19 11:20 Dose: 100 mls/hr Sodium Chloride (Normal Saline -) 250 mls @ 3,000 mls/hr IV PRN PRN PRN Reason: Hypotension during Dialysis Stop: 01/16/19 10:07 Labetalol HCl (Normodyne -) 400 mg PO BID [facility] Last Admin: 01/15/19 11:18 Dose: 400 mg Pantoprazole Sodium (Protonix -) 40 mg PO DAILY [facility] Last Admin: 01/15/19 11:17 Dose: 40 mg Phenytoin Sodium (Dilantin -) 200 mg PO BID [facility] Last Admin: 01/15/19 11:17 Dose: 200 mg - Objective Vital Signs: Vital Signs Temperature 99.4 F 01/15/19 06:44 Pulse Rate 96 H 01/15/19 06:44 Respiratory Rate 20 01/15/19 09:00 Blood Pressure 142/94 01/15/19 06:44 O2 Sat by Pulse Oximetry (%) 95 01/15/19 09:00 Constitutional: Yes: Calm Eyes: Yes: Conjunctiva Clear HENT: Yes: Atraumatic Neck: Yes: Supple Cardiovascular: Yes: S1, S2 Respiratory: Yes: CTA Bilaterally Gastrointestinal: Yes: Soft, Abdomen, Obese Genitourinary: Yes: WNL Musculoskeletal: Yes: WNL Edema: Yes Edema: LLE: 2+, RLE: 2+ Neurological: Yes: Oriented Psychiatric: Yes: Oriented Labs: CBC, BMP 01/14/19 13:50 01/14/19 13:50 INR, PTT INR 1.00 (0.83-1.09) 01/14/19 13:50 Problem List - Problems (1) Anemia Code(s): D64.9 - ANEMIA, UNSPECIFIED Qualifiers: Anemia type: unspecified type Qualified Code(s): D64.9 - Anemia, unspecified (2) Hyperkalemia Code(s): E87.5 - HYPERKALEMIA (3) Renal failure Code(s): N19 - UNSPECIFIED KIDNEY FAILURE Qualifiers: Renal failure chronicity: unspecified chronicity Qualified Code(s): N19 - Unspecified kidney failure Assessment/Plan Current Medications Generic Name Dose Route Start Last Admin Trade Name Freq PRN Reason Stop Dose Admin Albuterol/Ipratropium 1 amp 01/14/19 22:23 01/15/19 12:00 Duoneb - NEB 1 amp Q4H PRN Administration SHORT OF BREATH/WHEEZING Atorvastatin Calcium 40 mg 01/10/19 22:00 01/14/19 21:05 Lipitor - PO 40 mg HS [facility] Administration Calcium Acetate 667 mg 01/11/19 17:30 01/15/19 11:35 Phoslo - PO Not Given TIDCM [facility] Docusate Sodium 100 mg 01/10/19 22:00 01/15/19 11:17 Colace - PO 100 mg BID [facility] Administration Epoetin Ziyad 10,000 unit 01/15/19 10:07 Procrit - IVPUSH 01/15/19 10:08 ONCE ONE Ferrous Sulfate 325 mg 01/11/19 08:00 01/15/19 11:17 Feosol - PO 325 mg BIDWM [facility] Administration Guaifenesin 10 ml 01/13/19 15:00 01/15/19 11:31 Robitussin - PO 10 ml Q6H PRN Administration COUGH Heparin Sodium (Porcine) 5,000 unit 01/10/19 22:00 01/15/19 11:35 Heparin - SQ Not Given BID [facility] Sodium Chloride 250 mls @ 3,000 mls/hr 01/14/19 20:00 Normal Saline - IV 01/15/19 19:59 PRN PRN Hypotension during Dialysis Piperacillin Sod/Tazobactam 50 mls @ 100 mls/hr 01/14/19 12:15 01/15/19 11:20 Sod 2.25 gm/ Dextrose IVPB 100 mls/hr Q6H-IV [facility] Administration Protocol Sodium Chloride 250 mls @ 3,000 mls/hr 01/15/19 10:07 Normal Saline - IV 01/16/19 10:07 PRN PRN Hypotension during Dialysis Labetalol HCl 400 mg 01/10/19 22:00 01/15/19 11:18 Normodyne - PO 400 mg BID [facility] Administration Pantoprazole Sodium 40 mg 01/11/19 10:00 01/15/19 11:17 Protonix - PO 40 mg DAILY [facility] Administration Phenytoin Sodium 200 mg 01/10/19 22:00 01/15/19 11:17 Dilantin - PO 200 mg BID [facility] Administration Impression 1. SOHAIL 2. lower ext edema 3. anemia 4. HTN 5. arthritis 6. nephrotic range proteinura 7. obesity 8. positive hep c virus on last admission 9. CKD 10. ESRD Plan - HD today - transfuse prbc on hd - renal diet - will need permacath and fistula - check labs
[2019-01-15] MEDS ORDERED: EPOETIN ALFA 10,000 UNIT/1 ML VIAL IVPUSH ONE (15:15)
[2019-01-15 16:17] LABS: HEMATOCRIT 21.1 % (32.4-45.2); MCHC 31.7 g/dl (32.0-36.0); MEAN PLT VOLUME 6.6 fl (7.5-11.1); PLATELET COUNT 316 K/MM3 (134-434); RBC 2.48 M/mm3 (3.60-5.2); RDW 16.1 % (11.6-15.6); WHITE BLOOD COUNT 9.5 K/mm3 (4.0-10.0)
[2019-01-15 16:42] LABS: CREATININE 6.9 mg/dL (0.55-1.3); PHOSPHOROUS 6.9 mg/dL (2.5-4.9); POTASSIUM 4.3 mmol/L (3.5-5.1)
[2019-01-15 17:09] LABS: CALCIUM 6.3 mg/dL (8.5-10.1)
--- NOTE | 2019-01-15 18:47 | PN ---
Progress Note, Physician - Current Medication List Current Medications: Active Medications Albuterol/Ipratropium (Duoneb -) 1 amp NEB Q4H PRN PRN Reason: SHORT OF BREATH/WHEEZING Last Admin: 01/15/19 12:00 Dose: 1 amp Atorvastatin Calcium (Lipitor -) 40 mg PO HS [facility] Last Admin: 01/14/19 21:05 Dose: 40 mg Calcium Acetate (Phoslo -) 667 mg PO TIDCM [facility] Last Admin: 01/15/19 17:50 Dose: Not Given Docusate Sodium (Colace -) 100 mg PO BID [facility] Last Admin: 01/15/19 11:17 Dose: 100 mg Ferrous Sulfate (Feosol -) 325 mg PO BIDWM [facility] Last Admin: 01/15/19 17:49 Dose: Not Given Guaifenesin (Robitussin -) 10 ml PO Q6H PRN PRN Reason: COUGH Last Admin: 01/15/19 11:31 Dose: 10 ml Heparin Sodium (Porcine) (Heparin -) 5,000 unit SQ BID [facility] Last Admin: 01/15/19 11:35 Dose: Not Given Sodium Chloride (Normal Saline -) 250 mls @ 3,000 mls/hr IV PRN PRN PRN Reason: Hypotension during Dialysis Stop: 01/15/19 19:59 Piperacillin Sod/Tazobactam (Sod 2.25 gm/ Dextrose) 50 mls @ 100 mls/hr IVPB Q6H-IV [facility]; Protocol Last Admin: 01/15/19 14:18 Dose: 100 mls/hr Sodium Chloride (Normal Saline -) 250 mls @ 3,000 mls/hr IV PRN PRN PRN Reason: Hypotension during Dialysis Stop: 01/16/19 10:07 Labetalol HCl (Normodyne -) 400 mg PO BID [facility] Last Admin: 01/15/19 11:18 Dose: 400 mg Pantoprazole Sodium (Protonix -) 40 mg PO DAILY [facility] Last Admin: 01/15/19 11:17 Dose: 40 mg Phenytoin Sodium (Dilantin -) 200 mg PO BID [facility] Last Admin: 01/15/19 11:17 Dose: 200 mg - Objective Vital Signs: Vital Signs Temperature 98.8 F 01/15/19 15:40 Pulse Rate 82 01/15/19 17:45 Respiratory Rate 18 01/15/19 17:45 Blood Pressure 176/100 H 01/15/19 17:45 O2 Sat by Pulse Oximetry (%) 95 01/15/19 09:00 Constitutional: Yes: No Distress HENT: Yes: Atraumatic Neck: Yes: Supple Cardiovascular: Yes: Regular Rate and Rhythm Respiratory: Yes: CTA Bilaterally Gastrointestinal: Yes: Normal Bowel Sounds Extremities: Yes: WNL Neurological: Yes: Alert, Oriented Labs: CBC, BMP 01/15/19 16:10 01/15/19 16:10 INR, PTT INR 1.00 (0.83-1.09) 01/14/19 13:50 Problem List - Problems (1) HTN (hypertension) Code(s): I10 - ESSENTIAL (PRIMARY) HYPERTENSION Qualifiers: Hypertension type: essential hypertension Qualified Code(s): I10 - Essential (primary) hypertension (2) Hyperkalemia Assessment/Plan: got HD Code(s): E87.5 - HYPERKALEMIA (3) Renal failure Assessment/Plan: for HD Code(s): N19 - UNSPECIFIED KIDNEY FAILURE Qualifiers: Renal failure chronicity: unspecified chronicity Qualified Code(s): N19 - Unspecified kidney failure (4) Seizure disorder Code(s): G40.909 - EPILEPSY, UNSP, NOT INTRACTABLE, WITHOUT STATUS EPILEPTICUS (5) Anemia Assessment/Plan: refusing labs Code(s): D64.9 - ANEMIA, UNSPECIFIED Qualifiers: Anemia type: unspecified type Qualified Code(s): D64.9 - Anemia, unspecified (6) Acute on chronic diastolic CHF (congestive heart failure) Code(s): I50.33 - ACUTE ON CHRONIC DIASTOLIC (CONGESTIVE) HEART FAILURE (7) Hypercholesterolemia Code(s): E78.00 - PURE HYPERCHOLESTEROLEMIA, UNSPECIFIED (8) Seizures Code(s): R56.9 - UNSPECIFIED CONVULSIONS
[2019-01-15 20:34] LABS: HEMOGLOBIN 6.7 GM/dL (10.7-15.3)
[2019-01-15] MEDS: ACETAMINOPHEN 325 MG TABLET (FP) PO PRN (21:36)
[2019-01-15] MEDS: ATORVASTATIN CA 40 MG TABLET (FP) PO SCH (21:36)
[2019-01-16] MEDS ORDERED: DEXTROSE 5%-WATER - 50 ML IVPB ONE ×4 (02:02→21:37)
[2019-01-16] MEDS ORDERED: PIPERACILLIN/TAZOBACTAM 2.25 GM VIAL IVPB ONE ×4 (02:02→21:37)
[2019-01-16] MEDS: PIPERACILLIN/TAZOB 2.25 GM 2.25 GM in DEXTROSE 5%-WATER - 50 ML IVPB SCH ×4 (02:05→21:41)
[2019-01-16] MEDS: CALCIUM ACETATE 667 MG CAPSULE (FP) PO SCH ×3 (10:11→17:34)
[2019-01-16] MEDS: PHENYTOIN NA EXTENDED 100 MG CAPSULE (FP) PO SCH ×2 (10:12→21:40)
[2019-01-16] MEDS: LABETALOL HCL 200 MG TABLET (FP) PO SCH ×2 (10:12→21:40)
[2019-01-16] MEDS: DOCUSATE SODIUM 100 MG CAPSULE (FP) PO SCH ×2 (10:12→21:40)
[2019-01-16] MEDS: FERROUS SO4 325 MG TABLET (FP) PO SCH ×2 (10:13→17:34)
[2019-01-16] MEDS: PANTOPRAZOLE 40 MG TABLET (FP) PO SCH (10:13)
[2019-01-16] MEDS: HEPARIN NA (PORCINE) 5,000 UNITS/ML 1ML VIAL SQ SCH ×3 (10:15→22:44)
--- NOTE | 2019-01-16 10:53 | PN ---
Progress Note, Physician History of Present Illness: stable doing well no complaints - Current Medication List Current Medications: Active Medications Acetaminophen (Tylenol -) 650 mg PO Q6H PRN PRN Reason: FEVER Last Admin: 01/15/19 21:36 Dose: 650 mg Albuterol/Ipratropium (Duoneb -) 1 amp NEB Q4H PRN PRN Reason: SHORT OF BREATH/WHEEZING Last Admin: 01/15/19 12:00 Dose: 1 amp Atorvastatin Calcium (Lipitor -) 40 mg PO HS [facility] Last Admin: 01/15/19 21:36 Dose: 40 mg Calcium Acetate (Phoslo -) 1,334 mg PO TIDCM [facility] Last Admin: 01/16/19 10:11 Dose: 1,334 mg Docusate Sodium (Colace -) 100 mg PO BID [facility] Last Admin: 01/16/19 10:12 Dose: 100 mg Ferrous Sulfate (Feosol -) 325 mg PO BIDWM [facility] Last Admin: 01/16/19 10:13 Dose: 325 mg Guaifenesin (Robitussin -) 10 ml PO Q6H PRN PRN Reason: COUGH Last Admin: 01/15/19 11:31 Dose: 10 ml Heparin Sodium (Porcine) (Heparin -) 5,000 unit SQ BID [facility] Last Admin: 01/16/19 10:15 Dose: Not Given Piperacillin Sod/Tazobactam (Sod 2.25 gm/ Dextrose) 50 mls @ 100 mls/hr IVPB Q6H-IV [facility]; Protocol Last Admin: 01/16/19 10:14 Dose: 100 mls/hr Labetalol HCl (Normodyne -) 400 mg PO BID [facility] Last Admin: 01/16/19 10:12 Dose: 400 mg Pantoprazole Sodium (Protonix -) 40 mg PO DAILY [facility] Last Admin: 01/16/19 10:13 Dose: 40 mg Phenytoin Sodium (Dilantin -) 200 mg PO BID [facility] Last Admin: 01/16/19 10:12 Dose: 200 mg - Objective Vital Signs: Vital Signs Temperature 99 F 01/16/19 10:00 Pulse Rate 90 01/16/19 10:00 Respiratory Rate 20 01/16/19 10:00 Blood Pressure 160/110 H 01/16/19 10:00 O2 Sat by Pulse Oximetry (%) 95 01/15/19 09:00 Constitutional: Yes: No Distress, Calm HENT: Yes: Other (dialysis catheter in rt side of the neck) Cardiovascular: Yes: S1, S2 Respiratory: Yes: Regular, CTA Bilaterally Gastrointestinal: Yes: Normal Bowel Sounds, Soft Musculoskeletal: Yes: WNL Extremities: Yes: WNL Neurological: Yes: Alert, Oriented Psychiatric: Yes: Alert, Oriented Labs: CBC, BMP 01/15/19 16:10 01/15/19 16:10 INR, PTT INR 1.00 (0.83-1.09) 01/14/19 13:50 Assessment/Plan patient looks sick and i am worried that she might take turn for the worse,labd have been ordered ,uncollected Problem List - Problems (1) Anemia Code(s): D64.9 - ANEMIA, UNSPECIFIED Qualifiers: Anemia type: unspecified type Qualified Code(s): D64.9 - Anemia, unspecified (2) Hyperkalemia Code(s): E87.5 - HYPERKALEMIA (3) Renal failure Code(s): N19 - UNSPECIFIED KIDNEY FAILURE Qualifiers: Renal failure chronicity: unspecified chronicity Qualified Code(s): N19 - Unspecified kidney failure sepsis fever plan continue abx cx report noted will deescalate tomorrow close watch dialysis rest as per the team
--- NOTE | 2019-01-16 15:13 | PN ---
Progress Note, Physician - Current Medication List Current Medications: Active Medications Acetaminophen (Tylenol -) 650 mg PO Q6H PRN PRN Reason: FEVER Last Admin: 01/15/19 21:36 Dose: 650 mg Albuterol/Ipratropium (Duoneb -) 1 amp NEB Q4H PRN PRN Reason: SHORT OF BREATH/WHEEZING Last Admin: 01/15/19 12:00 Dose: 1 amp Atorvastatin Calcium (Lipitor -) 40 mg PO HS [facility] Last Admin: 01/15/19 21:36 Dose: 40 mg Calcium Acetate (Phoslo -) 1,334 mg PO TIDCM [facility] Last Admin: 01/16/19 12:07 Dose: 1,334 mg Docusate Sodium (Colace -) 100 mg PO BID [facility] Last Admin: 01/16/19 10:12 Dose: 100 mg Ferrous Sulfate (Feosol -) 325 mg PO BIDWM [facility] Last Admin: 01/16/19 10:13 Dose: 325 mg Guaifenesin (Robitussin -) 10 ml PO Q6H PRN PRN Reason: COUGH Last Admin: 01/15/19 11:31 Dose: 10 ml Heparin Sodium (Porcine) (Heparin -) 5,000 unit SQ BID [facility] Last Admin: 01/16/19 10:15 Dose: Not Given Piperacillin Sod/Tazobactam (Sod 2.25 gm/ Dextrose) 50 mls @ 100 mls/hr IVPB Q6H-IV [facility]; Protocol Last Admin: 01/16/19 10:14 Dose: 100 mls/hr Labetalol HCl (Normodyne -) 400 mg PO BID [facility] Last Admin: 01/16/19 10:12 Dose: 400 mg Pantoprazole Sodium (Protonix -) 40 mg PO DAILY [facility] Last Admin: 01/16/19 10:13 Dose: 40 mg Phenytoin Sodium (Dilantin -) 200 mg PO BID [facility] Last Admin: 01/16/19 10:12 Dose: 200 mg - Objective Vital Signs: Vital Signs Temperature 99 F 01/16/19 14:15 Pulse Rate 87 01/16/19 14:15 Respiratory Rate 20 01/16/19 14:15 Blood Pressure 161/109 H 01/16/19 14:15 O2 Sat by Pulse Oximetry (%) 95 01/16/19 09:00 Constitutional: Yes: No Distress HENT: Yes: Atraumatic Neck: Yes: Supple Cardiovascular: Yes: Regular Rate and Rhythm Respiratory: Yes: CTA Bilaterally Gastrointestinal: Yes: Normal Bowel Sounds Extremities: Yes: WNL Edema: No Peripheral Pulses WNL: Yes Neurological: Yes: Alert, Oriented Labs: CBC, BMP 01/15/19 16:10 01/15/19 16:10 INR, PTT INR 1.00 (0.83-1.09) 01/14/19 13:50 Problem List - Problems (1) HTN (hypertension) Code(s): I10 - ESSENTIAL (PRIMARY) HYPERTENSION Qualifiers: Hypertension type: essential hypertension Qualified Code(s): I10 - Essential (primary) hypertension (2) Hyperkalemia Assessment/Plan: got HD Code(s): E87.5 - HYPERKALEMIA (3) Renal failure Assessment/Plan: ON HD Code(s): N19 - UNSPECIFIED KIDNEY FAILURE Qualifiers: Renal failure chronicity: unspecified chronicity Qualified Code(s): N19 - Unspecified kidney failure (4) Seizure disorder Code(s): G40.909 - EPILEPSY, UNSP, NOT INTRACTABLE, WITHOUT STATUS EPILEPTICUS (5) Anemia Assessment/Plan: stable s/p blood transfusion Code(s): D64.9 - ANEMIA, UNSPECIFIED Qualifiers: Anemia type: unspecified type Qualified Code(s): D64.9 - Anemia, unspecified (6) Acute on chronic diastolic CHF (congestive heart failure) Code(s): I50.33 - ACUTE ON CHRONIC DIASTOLIC (CONGESTIVE) HEART FAILURE (7) Hypercholesterolemia Code(s): E78.00 - PURE HYPERCHOLESTEROLEMIA, UNSPECIFIED (8) Seizures Code(s): R56.9 - UNSPECIFIED CONVULSIONS
[2019-01-16] MEDS ORDERED: LABETALOL HCL 200 MG TABLET (FP) PO ONE (15:45)
--- NOTE | 2019-01-16 16:06 | PN ---
Progress Note, Physician History of Present Illness: Pt seen and examined at bedside. She is awake and alert. She denies shortness of breath. She feels that her edema is starting to improve. - Current Medication List Current Medications: Active Medications Acetaminophen (Tylenol -) 650 mg PO Q6H PRN PRN Reason: FEVER Last Admin: 01/15/19 21:36 Dose: 650 mg Albuterol/Ipratropium (Duoneb -) 1 amp NEB Q4H PRN PRN Reason: SHORT OF BREATH/WHEEZING Last Admin: 01/15/19 12:00 Dose: 1 amp Atorvastatin Calcium (Lipitor -) 40 mg PO HS [facility] Last Admin: 01/15/19 21:36 Dose: 40 mg Calcium Acetate (Phoslo -) 1,334 mg PO TIDCM [facility] Last Admin: 01/16/19 12:07 Dose: 1,334 mg Docusate Sodium (Colace -) 100 mg PO BID [facility] Last Admin: 01/16/19 10:12 Dose: 100 mg Ferrous Sulfate (Feosol -) 325 mg PO BIDWM [facility] Last Admin: 01/16/19 10:13 Dose: 325 mg Guaifenesin (Robitussin -) 10 ml PO Q6H PRN PRN Reason: COUGH Last Admin: 01/15/19 11:31 Dose: 10 ml Heparin Sodium (Porcine) (Heparin -) 5,000 unit SQ BID [facility] Last Admin: 01/16/19 10:15 Dose: Not Given Piperacillin Sod/Tazobactam (Sod 2.25 gm/ Dextrose) 50 mls @ 100 mls/hr IVPB Q6H-IV [facility]; Protocol Last Admin: 01/16/19 15:51 Dose: 100 mls/hr Labetalol HCl (Normodyne -) 400 mg PO TID [facility] Pantoprazole Sodium (Protonix -) 40 mg PO DAILY [facility] Last Admin: 01/16/19 10:13 Dose: 40 mg Phenytoin Sodium (Dilantin -) 200 mg PO BID [facility] Last Admin: 01/16/19 10:12 Dose: 200 mg - Objective Vital Signs: Vital Signs Temperature 99 F 01/16/19 14:15 Pulse Rate 87 01/16/19 14:15 Respiratory Rate 20 01/16/19 14:15 Blood Pressure 161/109 H 01/16/19 14:15 O2 Sat by Pulse Oximetry (%) 95 01/16/19 09:00 Constitutional: Yes: Calm Eyes: Yes: Conjunctiva Clear HENT: Yes: Atraumatic Neck: Yes: Supple Cardiovascular: Yes: S1, S2 Respiratory: Yes: CTA Bilaterally Gastrointestinal: Yes: Soft, Abdomen, Obese Genitourinary: Yes: WNL Edema: Yes Edema: LLE: 2+, RLE: 2+ Neurological: Yes: Oriented Psychiatric: Yes: Oriented Labs: CBC, BMP 01/15/19 16:10 01/15/19 16:10 INR, PTT INR 1.00 (0.83-1.09) 01/14/19 13:50 Problem List - Problems (1) Anemia Code(s): D64.9 - ANEMIA, UNSPECIFIED Qualifiers: Anemia type: unspecified type Qualified Code(s): D64.9 - Anemia, unspecified (2) Hyperkalemia Code(s): E87.5 - HYPERKALEMIA (3) Renal failure Code(s): N19 - UNSPECIFIED KIDNEY FAILURE Qualifiers: Renal failure chronicity: unspecified chronicity Qualified Code(s): N19 - Unspecified kidney failure Assessment/Plan Current Medications Generic Name Dose Route Start Last Admin Trade Name Freq PRN Reason Stop Dose Admin Acetaminophen 650 mg 01/15/19 21:22 01/15/19 21:36 Tylenol - PO 650 mg Q6H PRN Administration FEVER Albuterol/Ipratropium 1 amp 01/14/19 22:23 01/15/19 12:00 Duoneb - NEB 1 amp Q4H PRN Administration SHORT OF BREATH/WHEEZING Atorvastatin Calcium 40 mg 01/10/19 22:00 01/15/19 21:36 Lipitor - PO 40 mg HS [facility] Administration Calcium Acetate 1,334 mg 01/16/19 01:17 01/16/19 12:07 Phoslo - PO 1,334 mg TIDCM [facility] Administration Docusate Sodium 100 mg 01/10/19 22:00 01/16/19 10:12 Colace - PO 100 mg BID [facility] Administration Ferrous Sulfate 325 mg 01/11/19 08:00 01/16/19 10:13 Feosol - PO 325 mg BIDWM [facility] Administration Guaifenesin 10 ml 01/13/19 15:00 01/15/19 11:31 Robitussin - PO 10 ml Q6H PRN Administration COUGH Heparin Sodium (Porcine) 5,000 unit 01/10/19 22:00 01/16/19 10:15 Heparin - SQ Not Given BID [facility] Piperacillin Sod/Tazobactam 50 mls @ 100 mls/hr 01/14/19 12:15 01/16/19 15:51 Sod 2.25 gm/ Dextrose IVPB 100 mls/hr Q6H-IV [facility] Administration Protocol Labetalol HCl 400 mg 01/16/19 22:00 Normodyne - PO TID [facility] Pantoprazole Sodium 40 mg 01/11/19 10:00 01/16/19 10:13 Protonix - PO 40 mg DAILY [facility] Administration Phenytoin Sodium 200 mg 01/10/19 22:00 01/16/19 10:12 Dilantin - PO 200 mg BID [facility] Administration Impression 1. SOHAIL 2. lower ext edema 3. anemia 4. HTN 5. arthritis 6. nephrotic range proteinura 7. obesity 8. positive hep c virus on last admission 9. CKD 10. ESRD Plan - HD tomorrow - epogen for anemia - will give lasix today - check labs with hd, pt refuses bloodwork - vascular for permacath and fistula - will need HD placement - renal diet
[2019-01-16] MEDS ORDERED: FUROSEMIDE 40 MG/4 ML INJECTABLE VIAL IVPUSH ONE (16:09)
[2019-01-16] MEDS: LOSARTAN POTASSIUM 50 MG TABLET (FP) PO SCH (17:34)
[2019-01-16] MEDS: ALBUTEROL SO4 2.5/IPRATROPIUM 0.5 INH SOL 3 ML VIAL.NEB. NEB PRN (19:05)
[2019-01-16] MEDS: ATORVASTATIN CA 40 MG TABLET (FP) PO SCH (21:40)
[2019-01-16] MEDS ORDERED: LABETALOL HCL 200 MG TABLET (FP) PO SCH (22:00)
[2019-01-17] MEDS ORDERED: DEXTROSE 5%-WATER - 50 ML IVPB ONE ×4 (02:45→21:21)
[2019-01-17] MEDS ORDERED: PIPERACILLIN/TAZOBACTAM 2.25 GM VIAL IVPB ONE ×4 (02:45→21:21)
[2019-01-17] MEDS: PIPERACILLIN/TAZOB 2.25 GM 2.25 GM in DEXTROSE 5%-WATER - 50 ML IVPB SCH ×4 (02:52→21:55)
[2019-01-17] MEDS: LABETALOL HCL 200 MG TABLET (FP) PO SCH ×3 (06:02→21:55)
--- NOTE | 2019-01-17 08:32 | PN ---
Progress Note, Physician Chief Complaint: Pt alert; anxious; denies chest pain or dyspnea. History of Present Illness: The patient is a 58 year old black female with a past medical history of HTN, copd chronic arthritis, and CVA (2017, 2018) anemia, CKD, diastolic chf, seizure disorder here today for evaluation of lower extremity edema. The patient reports that she has had 3 weeks of bilateral lower extremity edema which has been getting progressively worse. She also notes an intermittent productive cough of yellow sputum. today she was getting up from toilet and lost her balance, fell over. states she got tangled in pants trying to pull them up. Patient denies headache, lightheadedness. Denies fever, chills. Denies chest pain, shortness of breath. Denies nausea, vomiting, diarrhea, abdominal pain. Allergies: NKA Social history: Patient confirms tobacco use ( pack per day for the last 40 years). Denies illicit drugs or alcohol use. - Current Medication List Current Medications: Active Medications Acetaminophen (Tylenol -) 650 mg PO Q6H PRN PRN Reason: FEVER Last Admin: 01/15/19 21:36 Dose: 650 mg Albuterol/Ipratropium (Duoneb -) 1 amp NEB Q4H PRN PRN Reason: SHORT OF BREATH/WHEEZING Last Admin: 01/16/19 19:05 Dose: 1 amp Atorvastatin Calcium (Lipitor -) 40 mg PO HS [facility] Last Admin: 01/16/19 21:40 Dose: 40 mg Calcium Acetate (Phoslo -) 1,334 mg PO TIDCM [facility] Last Admin: 01/16/19 17:34 Dose: 1,334 mg Docusate Sodium (Colace -) 100 mg PO BID [facility] Last Admin: 01/16/19 21:40 Dose: 100 mg Epoetin Ziyad (Procrit -) 10,000 unit IVPUSH ONCE ONE Stop: 01/17/19 09:01 Ferrous Sulfate (Feosol -) 325 mg PO BIDWM [facility] Last Admin: 01/16/19 17:34 Dose: 325 mg Guaifenesin (Robitussin -) 10 ml PO Q6H PRN PRN Reason: COUGH Last Admin: 01/15/19 11:31 Dose: 10 ml Heparin Sodium (Porcine) (Heparin -) 5,000 unit SQ BID [facility] Last Admin: 01/16/19 22:44 Dose: Not Given Piperacillin Sod/Tazobactam (Sod 2.25 gm/ Dextrose) 50 mls @ 100 mls/hr IVPB Q6H-IV [facility]; Protocol Last Admin: 01/17/19 02:52 Dose: 100 mls/hr Sodium Chloride (Normal Saline -) 250 mls @ 3,000 mls/hr IV PRN PRN PRN Reason: Hypotension during Dialysis Stop: 01/17/19 09:01 Labetalol HCl (Normodyne -) 400 mg PO TID [facility] Last Admin: 01/17/19 06:02 Dose: 400 mg Losartan Potassium (Cozaar -) 50 mg PO DAILY [facility] Last Admin: 01/16/19 17:34 Dose: 50 mg Pantoprazole Sodium (Protonix -) 40 mg PO DAILY [facility] Last Admin: 01/16/19 10:13 Dose: 40 mg Phenytoin Sodium (Dilantin -) 200 mg PO BID [facility] Last Admin: 01/16/19 21:40 Dose: 200 mg - Objective Vital Signs: Vital Signs Temperature 98.6 F 01/17/19 08:01 Pulse Rate 86 01/17/19 08:01 Respiratory Rate 20 01/17/19 08:01 Blood Pressure 153/103 H 01/17/19 08:01 O2 Sat by Pulse Oximetry (%) 95 01/16/19 21:00 Constitutional: Yes: Anxious Eyes: Yes: WNL HENT: Yes: WNL Neck: Yes: WNL Cardiovascular: Yes: S1, S2, S4 Respiratory: Yes: WNL Gastrointestinal: Yes: WNL ...Rectal Exam: Yes: Deferred Genitourinary: No: Anuria Breast(s): Yes: WNL Musculoskeletal: Yes: Back Pain Extremities: Yes: Cool Edema: No Peripheral Pulses WNL: Yes Integumentary: Yes: WNL Neurological: Yes: Alert Psychiatric: Yes: Other Labs: CBC, BMP 01/15/19 16:10 01/15/19 16:10 INR, PTT INR 1.00 (0.83-1.09) 01/14/19 13:50 Problem List - Problems (1) Acute on chronic diastolic CHF (congestive heart failure) Assessment/Plan: On abetolol. Add 2nd agent, e.g. ACEI or ARB, or amlodipine. F/u BUN/Cr, electrolytes, daily wt, Is and Os. Code(s): I50.33 - ACUTE ON CHRONIC DIASTOLIC (CONGESTIVE) HEART FAILURE (2) Anemia Assessment/Plan: on iron supplements. Code(s): D64.9 - ANEMIA, UNSPECIFIED Qualifiers: Anemia type: unspecified type Qualified Code(s): D64.9 - Anemia, unspecified (3) Hypercholesterolemia Assessment/Plan: on atorvastatin; increase dose to keep LDL < 70 mg/dl. Code(s): E78.00 - PURE HYPERCHOLESTEROLEMIA, UNSPECIFIED (4) Renal failure Assessment/Plan: hemodialysis per mail processor. Code(s): N19 - UNSPECIFIED KIDNEY FAILURE Qualifiers: Renal failure chronicity: unspecified chronicity Qualified Code(s): N19 - Unspecified kidney failure (5) Cigarette nicotine dependence Code(s): F17.210 - NICOTINE DEPENDENCE, CIGARETTES, UNCOMPLICATED (6) [place] cardiac risk >20% in next 10 years Assessment/Plan: stress MIBI when stable, if not done recentlyl Code(s): Z91.89 - OTH PERSONAL RISK FACTORS, NOT ELSEWHERE CLASSIFIED (7) Hypertensive emergency Assessment/Plan: On labetolol 400 mg bid; consider increasing to tid. Losartan added at 50 mg/day; f/u BP serially. Code(s): I16.1 - HYPERTENSIVE EMERGENCY (8) Lower extremity edema Code(s): R60.0 - LOCALIZED EDEMA (9) Seizures Code(s): R56.9 - UNSPECIFIED CONVULSIONS (10) Osteoarthritis, knee Assessment/Plan: left knee OA Code(s): M17.10 - UNILATERAL PRIMARY OSTEOARTHRITIS, UNSPECIFIED KNEE
--- NOTE | 2019-01-17 08:39 | PN ---
Progress Note, Physician Chief Complaint: Pt alert; denies chest pain or dyspnea. History of Present Illness: The patient is a 58 year old black female with a past medical history of HTN, copd chronic arthritis, and CVA (2017, 2018) anemia, CKD, diastolic chf, seizure disorder here today for evaluation of lower extremity edema. The patient reports that she has had 3 weeks of bilateral lower extremity edema which has been getting progressively worse. She also notes an intermittent productive cough of yellow sputum. today she was getting up from toilet and lost her balance, fell over. states she got tangled in pants trying to pull them up. Patient denies headache, lightheadedness. Denies fever, chills. Denies chest pain, shortness of breath. Denies nausea, vomiting, diarrhea, abdominal pain. Allergies: NKA Social history: Patient confirms tobacco use ( pack per day for the last 40 years). Denies illicit drugs or alcohol use. - Current Medication List Current Medications: Active Medications Acetaminophen (Tylenol -) 650 mg PO Q6H PRN PRN Reason: FEVER Last Admin: 01/15/19 21:36 Dose: 650 mg Albuterol/Ipratropium (Duoneb -) 1 amp NEB Q4H PRN PRN Reason: SHORT OF BREATH/WHEEZING Last Admin: 01/16/19 19:05 Dose: 1 amp Atorvastatin Calcium (Lipitor -) 40 mg PO HS [facility] Last Admin: 01/16/19 21:40 Dose: 40 mg Calcium Acetate (Phoslo -) 1,334 mg PO TIDCM [facility] Last Admin: 01/16/19 17:34 Dose: 1,334 mg Docusate Sodium (Colace -) 100 mg PO BID [facility] Last Admin: 01/16/19 21:40 Dose: 100 mg Epoetin Ziyad (Procrit -) 10,000 unit IVPUSH ONCE ONE Stop: 01/17/19 09:01 Ferrous Sulfate (Feosol -) 325 mg PO BIDWM [facility] Last Admin: 01/16/19 17:34 Dose: 325 mg Guaifenesin (Robitussin -) 10 ml PO Q6H PRN PRN Reason: COUGH Last Admin: 01/15/19 11:31 Dose: 10 ml Heparin Sodium (Porcine) (Heparin -) 5,000 unit SQ BID [facility] Last Admin: 01/16/19 22:44 Dose: Not Given Piperacillin Sod/Tazobactam (Sod 2.25 gm/ Dextrose) 50 mls @ 100 mls/hr IVPB Q6H-IV [facility]; Protocol Last Admin: 01/17/19 02:52 Dose: 100 mls/hr Sodium Chloride (Normal Saline -) 250 mls @ 3,000 mls/hr IV PRN PRN PRN Reason: Hypotension during Dialysis Stop: 01/17/19 09:01 Labetalol HCl (Normodyne -) 400 mg PO TID [facility] Last Admin: 01/17/19 06:02 Dose: 400 mg Losartan Potassium (Cozaar -) 50 mg PO DAILY [facility] Last Admin: 01/16/19 17:34 Dose: 50 mg Pantoprazole Sodium (Protonix -) 40 mg PO DAILY [facility] Last Admin: 01/16/19 10:13 Dose: 40 mg Phenytoin Sodium (Dilantin -) 200 mg PO BID [facility] Last Admin: 01/16/19 21:40 Dose: 200 mg - Objective Vital Signs: Vital Signs Temperature 98.6 F 01/17/19 08:01 Pulse Rate 86 01/17/19 08:01 Respiratory Rate 20 01/17/19 08:01 Blood Pressure 153/103 H 01/17/19 08:01 O2 Sat by Pulse Oximetry (%) 95 01/16/19 21:00 Constitutional: Yes: Calm Eyes: Yes: WNL Cardiovascular: Yes: S1, S2 Respiratory: Yes: Regular Gastrointestinal: Yes: Abdomen, Obese ...Rectal Exam: Yes: Deferred Genitourinary: No: Anuria Breast(s): Yes: WNL Musculoskeletal: Yes: Joint Stiffness, Joint Swelling, Muscle Weakness Extremities: Yes: Cool Edema: No Peripheral Pulses WNL: Yes Integumentary: Yes: WNL Neurological: Yes: Alert Psychiatric: Yes: Other Labs: CBC, BMP 01/15/19 16:10 01/15/19 16:10 INR, PTT INR 1.00 (0.83-1.09) 01/14/19 13:50 Problem List - Problems (1) Acute on chronic diastolic CHF (congestive heart failure) Code(s): I50.33 - ACUTE ON CHRONIC DIASTOLIC (CONGESTIVE) HEART FAILURE (2) Anemia Code(s): D64.9 - ANEMIA, UNSPECIFIED Qualifiers: Anemia type: unspecified type Qualified Code(s): D64.9 - Anemia, unspecified (3) Hypercholesterolemia Code(s): E78.00 - PURE HYPERCHOLESTEROLEMIA, UNSPECIFIED (4) Renal failure Code(s): N19 - UNSPECIFIED KIDNEY FAILURE Qualifiers: Renal failure chronicity: unspecified chronicity Qualified Code(s): N19 - Unspecified kidney failure (5) Cigarette nicotine dependence Code(s): F17.210 - NICOTINE DEPENDENCE, CIGARETTES, UNCOMPLICATED (6) [place] cardiac risk >20% in next 10 years Assessment/Plan: stress MIBI when stable, if not done recently. Pt's body weight/habitus may make this problematic. Code(s): Z91.89 - OTH PERSONAL RISK FACTORS, NOT ELSEWHERE CLASSIFIED (7) Hypertensive emergency Assessment/Plan: On labetolol 400 mg, which was increased to tid; Losartan also added at 50 mg/day; f/u BP serially (better- controlled today). Code(s): I16.1 - HYPERTENSIVE EMERGENCY (8) Lower extremity edema Code(s): R60.0 - LOCALIZED EDEMA (9) Seizures Code(s): R56.9 - UNSPECIFIED CONVULSIONS (10) Osteoarthritis, knee Assessment/Plan: left knee OA Code(s): M17.10 - UNILATERAL PRIMARY OSTEOARTHRITIS, UNSPECIFIED KNEE
[2019-01-17] MEDS ORDERED: SODIUM CHLORIDE 250 ML IV PRN (09:00)
[2019-01-17] MEDS ORDERED: EPOETIN ALFA 10,000 UNIT/1 ML VIAL IVPUSH ONE (09:00)
[2019-01-17] MEDS: CALCIUM ACETATE 667 MG CAPSULE (FP) PO SCH ×3 (09:15→18:02)
[2019-01-17] MEDS: FERROUS SO4 325 MG TABLET (FP) PO SCH ×2 (09:15→18:02)
[2019-01-17 09:57] LABS: HEMATOCRIT 27.8 % (32.4-45.2); HEMOGLOBIN 9.3 GM/dL (10.7-15.3); MCH 28.8 pg (25.7-33.7); MCHC 33.6 g/dl (32.0-36.0); MEAN CELL VOLUME 85.6 fl (80-96); PLATELET COUNT 312 K/MM3 (134-434); RBC 3.25 M/mm3 (3.60-5.2); RDW 15.7 % (11.6-15.6); WHITE BLOOD COUNT 9.9 K/mm3 (4.0-10.0)
[2019-01-17 10:36] LABS: CREATININE 5.9 mg/dL (0.55-1.3); POTASSIUM 3.8 mmol/L (3.5-5.1)
--- NOTE | 2019-01-17 11:35 | PN ---
Progress Note, Physician - Current Medication List Current Medications: Active Medications Acetaminophen (Tylenol -) 650 mg PO Q6H PRN PRN Reason: FEVER Last Admin: 01/15/19 21:36 Dose: 650 mg Albuterol/Ipratropium (Duoneb -) 1 amp NEB Q4H PRN PRN Reason: SHORT OF BREATH/WHEEZING Last Admin: 01/16/19 19:05 Dose: 1 amp Atorvastatin Calcium (Lipitor -) 40 mg PO HS [facility] Last Admin: 01/16/19 21:40 Dose: 40 mg Calcium Acetate (Phoslo -) 1,334 mg PO TIDCM [facility] Last Admin: 01/17/19 09:15 Dose: Not Given Docusate Sodium (Colace -) 100 mg PO BID [facility] Last Admin: 01/16/19 21:40 Dose: 100 mg Ferrous Sulfate (Feosol -) 325 mg PO BIDWM [facility] Last Admin: 01/17/19 09:15 Dose: Not Given Guaifenesin (Robitussin -) 10 ml PO Q6H PRN PRN Reason: COUGH Last Admin: 01/15/19 11:31 Dose: 10 ml Heparin Sodium (Porcine) (Heparin -) 5,000 unit SQ BID [facility] Last Admin: 01/16/19 22:44 Dose: Not Given Piperacillin Sod/Tazobactam (Sod 2.25 gm/ Dextrose) 50 mls @ 100 mls/hr IVPB Q6H-IV [facility]; Protocol Last Admin: 01/17/19 02:52 Dose: 100 mls/hr Labetalol HCl (Normodyne -) 400 mg PO TID [facility] Last Admin: 01/17/19 06:02 Dose: 400 mg Losartan Potassium (Cozaar -) 50 mg PO DAILY [facility] Last Admin: 01/16/19 17:34 Dose: 50 mg Pantoprazole Sodium (Protonix -) 40 mg PO DAILY [facility] Last Admin: 01/16/19 10:13 Dose: 40 mg Phenytoin Sodium (Dilantin -) 200 mg PO BID [facility] Last Admin: 01/16/19 21:40 Dose: 200 mg - Objective Vital Signs: Vital Signs Temperature 98.6 F 01/17/19 08:40 Pulse Rate 85 01/17/19 11:00 Respiratory Rate 18 01/17/19 11:00 Blood Pressure 190/109 H 01/17/19 11:00 O2 Sat by Pulse Oximetry (%) 95 01/16/19 21:00 Labs: CBC, BMP 01/17/19 09:00 01/17/19 09:00 INR, PTT INR 1.00 (0.83-1.09) 01/14/19 13:50
[2019-01-17 12:06] LABS: CALCIUM 6.9 mg/dL (8.5-10.1)
--- NOTE | 2019-01-17 12:27 | PN ---
Progress Note, Physician History of Present Illness: Pt seen and examined at bedside. She is awake and alert. She is tolerating HD. She denies shortness of breath. She feels that her edema is improving. - Current Medication List Current Medications: Active Medications Acetaminophen (Tylenol -) 650 mg PO Q6H PRN PRN Reason: FEVER Last Admin: 01/15/19 21:36 Dose: 650 mg Albuterol/Ipratropium (Duoneb -) 1 amp NEB Q4H PRN PRN Reason: SHORT OF BREATH/WHEEZING Last Admin: 01/16/19 19:05 Dose: 1 amp Atorvastatin Calcium (Lipitor -) 40 mg PO HS [facility] Last Admin: 01/16/19 21:40 Dose: 40 mg Calcium Acetate (Phoslo -) 1,334 mg PO TIDCM [facility] Last Admin: 01/17/19 09:15 Dose: Not Given Docusate Sodium (Colace -) 100 mg PO BID [facility] Last Admin: 01/16/19 21:40 Dose: 100 mg Ferrous Sulfate (Feosol -) 325 mg PO BIDWM [facility] Last Admin: 01/17/19 09:15 Dose: Not Given Guaifenesin (Robitussin -) 10 ml PO Q6H PRN PRN Reason: COUGH Last Admin: 01/15/19 11:31 Dose: 10 ml Heparin Sodium (Porcine) (Heparin -) 5,000 unit SQ BID [facility] Last Admin: 01/16/19 22:44 Dose: Not Given Piperacillin Sod/Tazobactam (Sod 2.25 gm/ Dextrose) 50 mls @ 100 mls/hr IVPB Q6H-IV [facility]; Protocol Last Admin: 01/17/19 02:52 Dose: 100 mls/hr Labetalol HCl (Normodyne -) 400 mg PO TID [facility] Last Admin: 01/17/19 06:02 Dose: 400 mg Losartan Potassium (Cozaar -) 50 mg PO DAILY [facility] Last Admin: 01/16/19 17:34 Dose: 50 mg Pantoprazole Sodium (Protonix -) 40 mg PO DAILY [facility] Last Admin: 01/16/19 10:13 Dose: 40 mg Phenytoin Sodium (Dilantin -) 200 mg PO BID [facility] Last Admin: 01/16/19 21:40 Dose: 200 mg - Objective Vital Signs: Vital Signs Temperature 98.6 F 01/17/19 08:40 Pulse Rate 86 01/17/19 12:00 Respiratory Rate 18 01/17/19 12:00 Blood Pressure 146/110 H 01/17/19 12:00 O2 Sat by Pulse Oximetry (%) 95 01/16/19 21:00 Constitutional: Yes: Calm Eyes: Yes: Conjunctiva Clear HENT: Yes: Atraumatic Cardiovascular: Yes: S1, S2 Respiratory: Yes: CTA Bilaterally Gastrointestinal: Yes: Soft, Abdomen, Obese Genitourinary: Yes: WNL Musculoskeletal: Yes: WNL Edema: Yes Edema: LLE: 2+, RLE: 2+ Neurological: Yes: Oriented Psychiatric: Yes: Oriented Labs: CBC, BMP 01/17/19 09:00 01/17/19 09:00 INR, PTT INR 1.00 (0.83-1.09) 01/14/19 13:50 Problem List - Problems (1) Anemia Code(s): D64.9 - ANEMIA, UNSPECIFIED Qualifiers: Anemia type: unspecified type Qualified Code(s): D64.9 - Anemia, unspecified (2) Hyperkalemia Code(s): E87.5 - HYPERKALEMIA (3) Renal failure Code(s): N19 - UNSPECIFIED KIDNEY FAILURE Qualifiers: Renal failure chronicity: unspecified chronicity Qualified Code(s): N19 - Unspecified kidney failure Assessment/Plan Current Medications Generic Name Dose Route Start Last Admin Trade Name Freq PRN Reason Stop Dose Admin Acetaminophen 650 mg 01/15/19 21:22 01/15/19 21:36 Tylenol - PO 650 mg Q6H PRN Administration FEVER Albuterol/Ipratropium 1 amp 01/14/19 22:23 01/16/19 19:05 Duoneb - NEB 1 amp Q4H PRN Administration SHORT OF BREATH/WHEEZING Atorvastatin Calcium 40 mg 01/10/19 22:00 01/16/19 21:40 Lipitor - PO 40 mg HS [facility] Administration Calcium Acetate 1,334 mg 01/16/19 01:17 01/17/19 09:15 Phoslo - PO Not Given TIDCM [facility] Docusate Sodium 100 mg 01/10/19 22:00 01/16/19 21:40 Colace - PO 100 mg BID [facility] Administration Ferrous Sulfate 325 mg 01/11/19 08:00 01/17/19 09:15 Feosol - PO Not Given BIDWM [facility] Guaifenesin 10 ml 01/13/19 15:00 01/15/19 11:31 Robitussin - PO 10 ml Q6H PRN Administration COUGH Heparin Sodium (Porcine) 5,000 unit 01/10/19 22:00 01/16/19 22:44 Heparin - SQ Not Given BID [facility] Piperacillin Sod/Tazobactam 50 mls @ 100 mls/hr 01/14/19 12:15 01/17/19 02:52 Sod 2.25 gm/ Dextrose IVPB 100 mls/hr Q6H-IV [facility] Administration Protocol Labetalol HCl 400 mg 01/16/19 22:00 01/17/19 06:02 Normodyne - PO 400 mg TID [facility] Administration Losartan Potassium 50 mg 01/16/19 16:15 01/16/19 17:34 Cozaar - PO 50 mg DAILY [facility] Administration Pantoprazole Sodium 40 mg 01/11/19 10:00 01/16/19 10:13 Protonix - PO 40 mg DAILY [facility] Administration Phenytoin Sodium 200 mg 01/10/19 22:00 01/16/19 21:40 Dilantin - PO 200 mg BID [facility] Administration Impression 1. SOHAIL 2. lower ext edema 3. anemia 4. HTN 5. arthritis 6. nephrotic range proteinura 7. obesity 8. positive hep c virus on last admission 9. CKD 10. ESRD Plan - HD today - lasix on non HD days - will need permacath and fistula - epogen for anemia - hg is improved - increase losartan if bp not improved - will need HD placement - renal diet
[2019-01-17] MEDS: HEPARIN NA (PORCINE) 5,000 UNITS/ML 1ML VIAL SQ SCH (13:44)
[2019-01-17] MEDS: DOCUSATE SODIUM 100 MG CAPSULE (FP) PO SCH ×2 (13:55→21:55)
[2019-01-17] MEDS: LOSARTAN POTASSIUM 50 MG TABLET (FP) PO SCH (13:55)
[2019-01-17] MEDS: PANTOPRAZOLE 40 MG TABLET (FP) PO SCH (13:55)
[2019-01-17] MEDS: PHENYTOIN NA EXTENDED 100 MG CAPSULE (FP) PO SCH ×2 (13:55→21:55)
--- NOTE | 2019-01-17 17:51 | PN ---
Progress Note, Physician - Current Medication List Current Medications: Active Medications Acetaminophen (Tylenol -) 650 mg PO Q6H PRN PRN Reason: FEVER Last Admin: 01/15/19 21:36 Dose: 650 mg Albuterol/Ipratropium (Duoneb -) 1 amp NEB Q4H PRN PRN Reason: SHORT OF BREATH/WHEEZING Last Admin: 01/16/19 19:05 Dose: 1 amp Atorvastatin Calcium (Lipitor -) 40 mg PO HS [facility] Last Admin: 01/16/19 21:40 Dose: 40 mg Calcium Acetate (Phoslo -) 1,334 mg PO TIDCM [facility] Last Admin: 01/17/19 13:55 Dose: 1,334 mg Docusate Sodium (Colace -) 100 mg PO BID [facility] Last Admin: 01/17/19 13:55 Dose: 100 mg Ferrous Sulfate (Feosol -) 325 mg PO BIDWM [facility] Last Admin: 01/17/19 09:15 Dose: Not Given Furosemide (Lasix -) 80 mg PO DAILY [facility] Stop: 01/19/19 10:01 Guaifenesin (Robitussin -) 10 ml PO Q6H PRN PRN Reason: COUGH Last Admin: 01/15/19 11:31 Dose: 10 ml Heparin Sodium (Porcine) (Heparin -) 5,000 unit SQ BID [facility] Last Admin: 01/17/19 13:44 Dose: Not Given Piperacillin Sod/Tazobactam (Sod 2.25 gm/ Dextrose) 50 mls @ 100 mls/hr IVPB Q6H-IV [facility]; Protocol Last Admin: 01/17/19 16:21 Dose: 100 mls/hr Labetalol HCl (Normodyne -) 400 mg PO TID [facility] Last Admin: 01/17/19 13:56 Dose: 400 mg Losartan Potassium (Cozaar -) 50 mg PO DAILY [facility] Last Admin: 01/17/19 13:55 Dose: 50 mg Pantoprazole Sodium (Protonix -) 40 mg PO DAILY [facility] Last Admin: 01/17/19 13:55 Dose: 40 mg Phenytoin Sodium (Dilantin -) 200 mg PO BID [facility] Last Admin: 01/17/19 13:55 Dose: 200 mg - Objective Vital Signs: Vital Signs Temperature 98.6 F 01/17/19 08:40 Pulse Rate 86 01/17/19 12:00 Respiratory Rate 18 01/17/19 12:00 Blood Pressure 146/110 H 01/17/19 12:00 O2 Sat by Pulse Oximetry (%) 95 01/17/19 09:00 Constitutional: Yes: No Distress HENT: Yes: Atraumatic Neck: Yes: Supple Cardiovascular: Yes: Regular Rate and Rhythm Respiratory: Yes: CTA Bilaterally Gastrointestinal: Yes: Normal Bowel Sounds Extremities: Yes: WNL Edema: No Neurological: Yes: Alert, Oriented Labs: CBC, BMP 01/17/19 09:00 01/17/19 09:00 INR, PTT INR 1.00 (0.83-1.09) 01/14/19 13:50 Problem List - Problems (1) HTN (hypertension) Code(s): I10 - ESSENTIAL (PRIMARY) HYPERTENSION Qualifiers: Hypertension type: essential hypertension Qualified Code(s): I10 - Essential (primary) hypertension (2) Hyperkalemia Assessment/Plan: got HD Code(s): E87.5 - HYPERKALEMIA (3) Renal failure Assessment/Plan: ON HD Code(s): N19 - UNSPECIFIED KIDNEY FAILURE Qualifiers: Renal failure chronicity: unspecified chronicity Qualified Code(s): N19 - Unspecified kidney failure (4) Seizure disorder Code(s): G40.909 - EPILEPSY, UNSP, NOT INTRACTABLE, WITHOUT STATUS EPILEPTICUS (5) Anemia Assessment/Plan: stable s/p blood transfusion Code(s): D64.9 - ANEMIA, UNSPECIFIED Qualifiers: Anemia type: unspecified type Qualified Code(s): D64.9 - Anemia, unspecified (6) Acute on chronic diastolic CHF (congestive heart failure) Code(s): I50.33 - ACUTE ON CHRONIC DIASTOLIC (CONGESTIVE) HEART FAILURE (7) Hypercholesterolemia Code(s): E78.00 - PURE HYPERCHOLESTEROLEMIA, UNSPECIFIED (8) Seizures Code(s): R56.9 - UNSPECIFIED CONVULSIONS (9) Sepsis Assessment/Plan: on abx cxs pending Code(s): A41.9 - SEPSIS, UNSPECIFIED ORGANISM
[2019-01-17] MEDS: ATORVASTATIN CA 40 MG TABLET (FP) PO SCH (21:55)
[2019-01-17] MEDS ORDERED: LOSARTAN POTASSIUM 50 MG TABLET (FP) PO ONE (22:12)
--- NOTE | 2019-01-18 01:42 | PN ---
Progress Note, Physician - Current Medication List Current Medications: Active Medications Acetaminophen (Tylenol -) 650 mg PO Q6H PRN PRN Reason: FEVER Last Admin: 01/15/19 21:36 Dose: 650 mg Albuterol/Ipratropium (Duoneb -) 1 amp NEB Q4H PRN PRN Reason: SHORT OF BREATH/WHEEZING Last Admin: 01/16/19 19:05 Dose: 1 amp Atorvastatin Calcium (Lipitor -) 40 mg PO HS [facility] Last Admin: 01/17/19 21:55 Dose: 40 mg Calcium Acetate (Phoslo -) 1,334 mg PO TIDCM [facility] Last Admin: 01/17/19 18:02 Dose: 1,334 mg Docusate Sodium (Colace -) 100 mg PO BID [facility] Last Admin: 01/17/19 21:55 Dose: 100 mg Ferrous Sulfate (Feosol -) 325 mg PO BIDWM [facility] Last Admin: 01/17/19 18:02 Dose: 325 mg Furosemide (Lasix -) 80 mg PO DAILY [facility] Stop: 01/19/19 10:01 Guaifenesin (Robitussin -) 10 ml PO Q6H PRN PRN Reason: COUGH Last Admin: 01/15/19 11:31 Dose: 10 ml Piperacillin Sod/Tazobactam (Sod 2.25 gm/ Dextrose) 50 mls @ 100 mls/hr IVPB Q6H-IV [facility]; Protocol Last Admin: 01/17/19 21:55 Dose: 100 mls/hr Labetalol HCl (Normodyne -) 400 mg PO TID [facility] Last Admin: 01/17/19 21:55 Dose: 400 mg Losartan Potassium (Cozaar -) 100 mg PO DAILY [facility] Pantoprazole Sodium (Protonix -) 40 mg PO DAILY [facility] Last Admin: 01/17/19 13:55 Dose: 40 mg Phenytoin Sodium (Dilantin -) 200 mg PO BID [facility] Last Admin: 01/17/19 21:55 Dose: 200 mg - Objective Vital Signs: Vital Signs Temperature 98.2 F 01/17/19 22:00 Pulse Rate 90 01/17/19 22:00 Respiratory Rate 20 01/17/19 22:00 Blood Pressure 164/86 01/17/19 22:00 O2 Sat by Pulse Oximetry (%) 95 01/17/19 21:00 Labs: CBC, BMP 01/17/19 09:00 01/17/19 09:00 INR, PTT INR 1.00 (0.83-1.09) 01/14/19 13:50 Problem List - Problems (1) Acute on chronic diastolic CHF (congestive heart failure) Code(s): I50.33 - ACUTE ON CHRONIC DIASTOLIC (CONGESTIVE) HEART FAILURE (2) Anemia Code(s): D64.9 - ANEMIA, UNSPECIFIED Qualifiers: Anemia type: unspecified type Qualified Code(s): D64.9 - Anemia, unspecified (3) Hypercholesterolemia Code(s): E78.00 - PURE HYPERCHOLESTEROLEMIA, UNSPECIFIED (4) Renal failure Code(s): N19 - UNSPECIFIED KIDNEY FAILURE Qualifiers: Renal failure chronicity: unspecified chronicity Qualified Code(s): N19 - Unspecified kidney failure (5) Cigarette nicotine dependence Code(s): F17.210 - NICOTINE DEPENDENCE, CIGARETTES, UNCOMPLICATED (6) [place] cardiac risk >20% in next 10 years Code(s): Z91.89 - OTH PERSONAL RISK FACTORS, NOT ELSEWHERE CLASSIFIED (7) Hypertensive emergency Code(s): I16.1 - HYPERTENSIVE EMERGENCY (8) Lower extremity edema Code(s): R60.0 - LOCALIZED EDEMA (9) Seizures Code(s): R56.9 - UNSPECIFIED CONVULSIONS (10) Osteoarthritis, knee Code(s): M17.10 - UNILATERAL PRIMARY OSTEOARTHRITIS, UNSPECIFIED KNEE
[2019-01-18] MEDS ORDERED: PIPERACILLIN/TAZOBACTAM 2.25 GM VIAL IVPB ONE ×2 (02:27→08:37)
[2019-01-18] MEDS ORDERED: DEXTROSE 5%-WATER - 50 ML IVPB ONE ×2 (02:28→08:37)
[2019-01-18] MEDS: PIPERACILLIN/TAZOB 2.25 GM 2.25 GM in DEXTROSE 5%-WATER - 50 ML IVPB SCH ×2 (03:11→08:40)
[2019-01-18] MEDS: LABETALOL HCL 200 MG TABLET (FP) PO SCH ×3 (06:35→21:20)
[2019-01-18] MEDS: FERROUS SO4 325 MG TABLET (FP) PO SCH ×2 (08:40→18:08)
[2019-01-18] MEDS: CALCIUM ACETATE 667 MG CAPSULE (FP) PO SCH ×3 (08:40→18:08)
--- NOTE | 2019-01-18 09:22 | PN ---
Progress Note, Physician History of Present Illness: stable no new issues - Current Medication List Current Medications: Active Medications Acetaminophen (Tylenol -) 650 mg PO Q6H PRN PRN Reason: FEVER Last Admin: 01/15/19 21:36 Dose: 650 mg Albuterol/Ipratropium (Duoneb -) 1 amp NEB Q4H PRN PRN Reason: SHORT OF BREATH/WHEEZING Last Admin: 01/16/19 19:05 Dose: 1 amp Atorvastatin Calcium (Lipitor -) 40 mg PO HS [facility] Last Admin: 01/17/19 21:55 Dose: 40 mg Calcium Acetate (Phoslo -) 1,334 mg PO TIDCM [facility] Last Admin: 01/18/19 08:40 Dose: 1,334 mg Docusate Sodium (Colace -) 100 mg PO BID [facility] Last Admin: 01/17/19 21:55 Dose: 100 mg Ferrous Sulfate (Feosol -) 325 mg PO BIDWM [facility] Last Admin: 01/18/19 08:40 Dose: 325 mg Furosemide (Lasix -) 80 mg PO DAILY [facility] Stop: 01/19/19 10:01 Guaifenesin (Robitussin -) 10 ml PO Q6H PRN PRN Reason: COUGH Last Admin: 01/15/19 11:31 Dose: 10 ml Labetalol HCl (Normodyne -) 400 mg PO TID [facility] Last Admin: 01/18/19 06:35 Dose: 400 mg Losartan Potassium (Cozaar -) 100 mg PO DAILY [facility] Pantoprazole Sodium (Protonix -) 40 mg PO DAILY [facility] Last Admin: 01/17/19 13:55 Dose: 40 mg Phenytoin Sodium (Dilantin -) 200 mg PO BID [facility] Last Admin: 01/17/19 21:55 Dose: 200 mg - Objective Vital Signs: Vital Signs Temperature 98.4 F 01/18/19 06:00 Pulse Rate 84 01/18/19 06:00 Respiratory Rate 20 01/18/19 06:00 Blood Pressure 157/105 H 01/18/19 06:00 O2 Sat by Pulse Oximetry (%) 95 01/17/19 21:00 Constitutional: Yes: No Distress, Calm Cardiovascular: Yes: Regular Rate and Rhythm Respiratory: Yes: Regular, CTA Bilaterally Gastrointestinal: Yes: Normal Bowel Sounds, Soft Musculoskeletal: Yes: WNL Extremities: Yes: WNL Neurological: Yes: Alert, Oriented Psychiatric: Yes: Alert, Oriented Labs: CBC, BMP 01/17/19 09:00 01/17/19 09:00 INR, PTT INR 1.00 (0.83-1.09) 01/14/19 13:50 Assessment/Plan patient looks sick and i am worried that she might take turn for the worse,labd have been ordered ,uncollected Problem List - Problems (1) Anemia Code(s): D64.9 - ANEMIA, UNSPECIFIED Qualifiers: Anemia type: unspecified type Qualified Code(s): D64.9 - Anemia, unspecified (2) Hyperkalemia Code(s): E87.5 - HYPERKALEMIA (3) Renal failure Code(s): N19 - UNSPECIFIED KIDNEY FAILURE Qualifiers: Renal failure chronicity: unspecified chronicity Qualified Code(s): N19 - Unspecified kidney failure sepsis fever plan will stop abx cx report noted close watch dialysis rest as per the team
[2019-01-18] MEDS: LOSARTAN POTASSIUM 50 MG TABLET (FP) PO SCH (10:28)
[2019-01-18] MEDS: FUROSEMIDE 40 MG TABLET (FP) PO SCH (10:29)
[2019-01-18] MEDS: DOCUSATE SODIUM 100 MG CAPSULE (FP) PO SCH ×2 (10:29→21:20)
[2019-01-18] MEDS: PANTOPRAZOLE 40 MG TABLET (FP) PO SCH (10:29)
[2019-01-18] MEDS: PHENYTOIN NA EXTENDED 100 MG CAPSULE (FP) PO SCH ×2 (10:29→21:20)
--- NOTE | 2019-01-18 11:48 | PN ---
Progress Note, Physician History of Present Illness: agree to do hd - Current Medication List Current Medications: Active Medications Acetaminophen (Tylenol -) 650 mg PO Q6H PRN PRN Reason: FEVER Last Admin: 01/15/19 21:36 Dose: 650 mg Albuterol/Ipratropium (Duoneb -) 1 amp NEB Q4H PRN PRN Reason: SHORT OF BREATH/WHEEZING Last Admin: 01/16/19 19:05 Dose: 1 amp Atorvastatin Calcium (Lipitor -) 40 mg PO HS [facility] Last Admin: 01/17/19 21:55 Dose: 40 mg Calcium Acetate (Phoslo -) 1,334 mg PO TIDCM [facility] Last Admin: 01/18/19 08:40 Dose: 1,334 mg Docusate Sodium (Colace -) 100 mg PO BID [facility] Last Admin: 01/18/19 10:29 Dose: 100 mg Ferrous Sulfate (Feosol -) 325 mg PO BIDWM [facility] Last Admin: 01/18/19 08:40 Dose: 325 mg Furosemide (Lasix -) 80 mg PO DAILY [facility] Stop: 01/19/19 10:01 Last Admin: 01/18/19 10:29 Dose: 80 mg Guaifenesin (Robitussin -) 10 ml PO Q6H PRN PRN Reason: COUGH Last Admin: 01/15/19 11:31 Dose: 10 ml Labetalol HCl (Normodyne -) 400 mg PO TID [facility] Last Admin: 01/18/19 06:35 Dose: 400 mg Losartan Potassium (Cozaar -) 100 mg PO DAILY [facility] Last Admin: 01/18/19 10:28 Dose: 100 mg Pantoprazole Sodium (Protonix -) 40 mg PO DAILY [facility] Last Admin: 01/18/19 10:29 Dose: 40 mg Phenytoin Sodium (Dilantin -) 200 mg PO BID [facility] Last Admin: 01/18/19 10:29 Dose: 200 mg - Objective Vital Signs: Vital Signs Temperature 98.4 F 01/18/19 06:00 Pulse Rate 84 01/18/19 06:00 Respiratory Rate 20 01/18/19 06:00 Blood Pressure 157/105 H 01/18/19 06:00 O2 Sat by Pulse Oximetry (%) 95 01/17/19 21:00 Constitutional: Yes: No Distress HENT: Yes: Atraumatic Neck: Yes: Supple Cardiovascular: Yes: Regular Rate and Rhythm Respiratory: Yes: CTA Bilaterally Gastrointestinal: Yes: Normal Bowel Sounds Extremities: Yes: WNL Edema: No Peripheral Pulses WNL: Yes Neurological: Yes: Alert, Oriented Labs: CBC, BMP 01/17/19 09:00 01/17/19 09:00 INR, PTT INR 1.00 (0.83-1.09) 01/14/19 13:50 Problem List - Problems (1) HTN (hypertension) Code(s): I10 - ESSENTIAL (PRIMARY) HYPERTENSION Qualifiers: Hypertension type: essential hypertension Qualified Code(s): I10 - Essential (primary) hypertension (2) Hyperkalemia Assessment/Plan: got HD Code(s): E87.5 - HYPERKALEMIA (3) Renal failure Assessment/Plan: ON HD Code(s): N19 - UNSPECIFIED KIDNEY FAILURE Qualifiers: Renal failure chronicity: unspecified chronicity Qualified Code(s): N19 - Unspecified kidney failure (4) Seizure disorder Code(s): G40.909 - EPILEPSY, UNSP, NOT INTRACTABLE, WITHOUT STATUS EPILEPTICUS (5) Anemia Code(s): D64.9 - ANEMIA, UNSPECIFIED Qualifiers: Anemia type: unspecified type Qualified Code(s): D64.9 - Anemia, unspecified (6) Acute on chronic diastolic CHF (congestive heart failure) Code(s): I50.33 - ACUTE ON CHRONIC DIASTOLIC (CONGESTIVE) HEART FAILURE (7) Hypercholesterolemia Code(s): E78.00 - PURE HYPERCHOLESTEROLEMIA, UNSPECIFIED (8) Seizures Code(s): R56.9 - UNSPECIFIED CONVULSIONS (9) Sepsis Assessment/Plan: on abx cxs pending Code(s): A41.9 - SEPSIS, UNSPECIFIED ORGANISM
[2019-01-18] MEDS: ATORVASTATIN CA 40 MG TABLET (FP) PO SCH (21:20)
[2019-01-19] MEDS: LABETALOL HCL 200 MG TABLET (FP) PO SCH ×3 (06:23→21:23)
[2019-01-19] MEDS: FUROSEMIDE 40 MG TABLET (FP) PO SCH (09:11)
[2019-01-19] MEDS: CALCIUM ACETATE 667 MG CAPSULE (FP) PO SCH ×3 (09:11→16:53)
[2019-01-19] MEDS: PHENYTOIN NA EXTENDED 100 MG CAPSULE (FP) PO SCH ×2 (09:11→21:23)
[2019-01-19] MEDS: DOCUSATE SODIUM 100 MG CAPSULE (FP) PO SCH ×2 (09:11→21:23)
[2019-01-19] MEDS: FERROUS SO4 325 MG TABLET (FP) PO SCH ×2 (09:11→16:45)
[2019-01-19] MEDS: LOSARTAN POTASSIUM 50 MG TABLET (FP) PO SCH (09:12)
[2019-01-19] MEDS: PANTOPRAZOLE 40 MG TABLET (FP) PO SCH (09:12)
--- NOTE | 2019-01-19 13:14 | PN ---
Progress Note, Physician History of Present Illness: coughing with whitish sputum production - Current Medication List Current Medications: Active Medications Acetaminophen (Tylenol -) 650 mg PO Q6H PRN PRN Reason: FEVER Last Admin: 01/15/19 21:36 Dose: 650 mg Albuterol/Ipratropium (Duoneb -) 1 amp NEB Q4H PRN PRN Reason: SHORT OF BREATH/WHEEZING Last Admin: 01/16/19 19:05 Dose: 1 amp Atorvastatin Calcium (Lipitor -) 40 mg PO HS [facility] Last Admin: 01/18/19 21:20 Dose: 40 mg Calcium Acetate (Phoslo -) 1,334 mg PO TIDCM [facility] Last Admin: 01/19/19 11:04 Dose: 1,334 mg Docusate Sodium (Colace -) 100 mg PO BID [facility] Last Admin: 01/19/19 09:11 Dose: 100 mg Ferrous Sulfate (Feosol -) 325 mg PO BIDWM [facility] Last Admin: 01/19/19 09:11 Dose: 325 mg Guaifenesin (Robitussin -) 10 ml PO Q6H PRN PRN Reason: COUGH Last Admin: 01/15/19 11:31 Dose: 10 ml Labetalol HCl (Normodyne -) 400 mg PO TID [facility] Last Admin: 01/19/19 06:23 Dose: 400 mg Losartan Potassium (Cozaar -) 100 mg PO DAILY [facility] Last Admin: 01/19/19 09:12 Dose: 100 mg Pantoprazole Sodium (Protonix -) 40 mg PO DAILY [facility] Last Admin: 01/19/19 09:12 Dose: 40 mg Phenytoin Sodium (Dilantin -) 200 mg PO BID [facility] Last Admin: 01/19/19 09:11 Dose: 200 mg - Objective Vital Signs: Vital Signs Temperature 98.6 F 01/19/19 10:00 Pulse Rate 80 01/19/19 10:00 Respiratory Rate 20 01/19/19 10:00 Blood Pressure 170/110 H 01/19/19 10:00 O2 Sat by Pulse Oximetry (%) 94 L 01/19/19 09:00 Constitutional: Yes: No Distress, Calm Cardiovascular: Yes: S1, S2 Respiratory: Yes: Regular, On Nasal O2, Poor Air Entry Gastrointestinal: Yes: Normal Bowel Sounds, Soft Musculoskeletal: Yes: WNL Extremities: Yes: WNL Neurological: Yes: Alert, Oriented Psychiatric: Yes: Alert, Oriented Labs: CBC, BMP 01/17/19 09:00 01/17/19 09:00 INR, PTT INR 1.00 (0.83-1.09) 01/14/19 13:50 Assessment/Plan patient looks sick and i am worried that she might take turn for the worse,labd have been ordered ,uncollected Problem List - Problems (1) Anemia Code(s): D64.9 - ANEMIA, UNSPECIFIED Qualifiers: Anemia type: unspecified type Qualified Code(s): D64.9 - Anemia, unspecified (2) Hyperkalemia Code(s): E87.5 - HYPERKALEMIA (3) Renal failure Code(s): N19 - UNSPECIFIED KIDNEY FAILURE Qualifiers: Renal failure chronicity: unspecified chronicity Qualified Code(s): N19 - Unspecified kidney failure sepsis fever plan continue current mgmt dialysis rest as per the team
--- NOTE | 2019-01-19 14:53 | PN ---
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 She denies chest pain, dyspnea, AGOSTO. LE edema improving with HD. - Current Medication List Current Medications: Active Medications Acetaminophen (Tylenol -) 650 mg PO Q6H PRN PRN Reason: FEVER Last Admin: 01/15/19 21:36 Dose: 650 mg Albuterol/Ipratropium (Duoneb -) 1 amp NEB Q4H PRN PRN Reason: SHORT OF BREATH/WHEEZING Last Admin: 01/16/19 19:05 Dose: 1 amp Atorvastatin Calcium (Lipitor -) 40 mg PO HS [facility] Last Admin: 01/18/19 21:20 Dose: 40 mg Calcium Acetate (Phoslo -) 1,334 mg PO TIDCM [facility] Last Admin: 01/19/19 11:04 Dose: 1,334 mg Docusate Sodium (Colace -) 100 mg PO BID [facility] Last Admin: 01/19/19 09:11 Dose: 100 mg Ferrous Sulfate (Feosol -) 325 mg PO BIDWM [facility] Last Admin: 01/19/19 09:11 Dose: 325 mg Guaifenesin (Robitussin -) 10 ml PO Q6H PRN PRN Reason: COUGH Last Admin: 01/15/19 11:31 Dose: 10 ml Labetalol HCl (Normodyne -) 400 mg PO TID [facility] Last Admin: 01/19/19 13:53 Dose: 400 mg Losartan Potassium (Cozaar -) 100 mg PO DAILY [facility] Last Admin: 01/19/19 09:12 Dose: 100 mg Pantoprazole Sodium (Protonix -) 40 mg PO DAILY [facility] Last Admin: 01/19/19 09:12 Dose: 40 mg Phenytoin Sodium (Dilantin -) 200 mg PO BID [facility] Last Admin: 01/19/19 09:11 Dose: 200 mg - Objective Vital Signs: Vital Signs Temperature 98.6 F 01/19/19 10:00 Pulse Rate 80 01/19/19 10:00 Respiratory Rate 20 01/19/19 10:00 Blood Pressure 170/110 H 01/19/19 10:00 O2 Sat by Pulse Oximetry (%) 94 L 01/19/19 09:00 Constitutional: Yes: No Distress, Calm Neck: Yes: Supple Cardiovascular: Yes: Regular Rate and Rhythm Respiratory: Yes: Regular, Diminished Gastrointestinal: Yes: Normal Bowel Sounds, Soft, Abdomen, Obese Edema: Yes Edema: LLE: 1+, RLE: 1+ Labs: CBC, BMP 01/17/19 09:00 01/17/19 09:00 INR, PTT INR 1.00 (0.83-1.09) 01/14/19 13:50 Assessment/Plan - Problems (1) Acute on chronic diastolic CHF (congestive heart failure) Code(s): I50.33 - ACUTE ON CHRONIC DIASTOLIC (CONGESTIVE) HEART FAILURE (2) Anemia Code(s): D64.9 - ANEMIA, UNSPECIFIED Qualifiers: Anemia type: unspecified type Qualified Code(s): D64.9 - Anemia, unspecified (3) Hypercholesterolemia Code(s): E78.00 - PURE HYPERCHOLESTEROLEMIA, UNSPECIFIED on Lipitor 40 qd (4) Renal failure Code(s): N19 - UNSPECIFIED KIDNEY FAILURE Qualifiers: Renal failure chronicity: unspecified chronicity Qualified Code(s): N19 - Unspecified kidney failure On HD with Lasix non HD days per renal (5) Cigarette nicotine dependence Code(s): F17.210 - NICOTINE DEPENDENCE, CIGARETTES, UNCOMPLICATED (6) [place] cardiac risk >20% in next 10 years Assessment/Plan: stress MIBI when stable, if not done recently. Pt's body weight/habitus may make this problematic. Code(s): Z91.89 - OTH PERSONAL RISK FACTORS, NOT ELSEWHERE CLASSIFIED (7) Hypertensive emergency Assessment/Plan: On labetolol 400 mg tid; Losartan 100 mg/day; add Procardia XL 60 qd and f/u BP response Code(s): I16.1 - HYPERTENSIVE EMERGENCY (8) Lower extremity edema Code(s): R60.0 - LOCALIZED EDEMA (9) Seizures Code(s): R56.9 - UNSPECIFIED CONVULSIONS (10) Osteoarthritis, knee Assessment/Plan: left knee OA Code(s): M17.10 - UNILATERAL PRIMARY OSTEOARTHRITIS, UNSPECIFIED KNEE
[2019-01-19] MEDS: NIFEdipine E.R 60 MG TABLET (UD) PO SCH (16:53)
[2019-01-19] MEDS: ATORVASTATIN CA 40 MG TABLET (FP) PO SCH (21:23)
--- NOTE | 2019-01-19 22:49 | PN ---
Progress Note, Physician - Current Medication List Current Medications: Active Medications Acetaminophen (Tylenol -) 650 mg PO Q6H PRN PRN Reason: FEVER Last Admin: 01/15/19 21:36 Dose: 650 mg Atorvastatin Calcium (Lipitor -) 40 mg PO HS [facility] Last Admin: 01/19/19 21:23 Dose: 40 mg Calcium Acetate (Phoslo -) 1,334 mg PO TIDCM [facility] Last Admin: 01/19/19 16:53 Dose: 1,334 mg Docusate Sodium (Colace -) 100 mg PO BID [facility] Last Admin: 01/19/19 21:23 Dose: 100 mg Ferrous Sulfate (Feosol -) 325 mg PO BIDWM [facility] Last Admin: 01/19/19 16:45 Dose: 325 mg Guaifenesin (Robitussin -) 10 ml PO Q6H PRN PRN Reason: COUGH Last Admin: 01/15/19 11:31 Dose: 10 ml Labetalol HCl (Normodyne -) 400 mg PO TID [facility] Last Admin: 01/19/19 21:23 Dose: 400 mg Losartan Potassium (Cozaar -) 100 mg PO DAILY [facility] Last Admin: 01/19/19 09:12 Dose: 100 mg Nifedipine (Procardia Xl -) 60 mg PO DAILY [facility] Last Admin: 01/19/19 16:53 Dose: 60 mg Pantoprazole Sodium (Protonix -) 40 mg PO DAILY [facility] Last Admin: 01/19/19 09:12 Dose: 40 mg Phenytoin Sodium (Dilantin -) 200 mg PO BID [facility] Last Admin: 01/19/19 21:23 Dose: 200 mg - Objective Vital Signs: Vital Signs Temperature 98.5 F 01/19/19 20:31 Pulse Rate 89 01/19/19 20:31 Respiratory Rate 22 H 01/19/19 20:31 Blood Pressure 202/106 H 01/19/19 20:31 O2 Sat by Pulse Oximetry (%) 96 01/19/19 21:00 Labs: CBC, BMP 01/17/19 09:00 01/17/19 09:00 INR, PTT INR 1.00 (0.83-1.09) 01/14/19 13:50
[2019-01-20] MEDS: LABETALOL HCL 200 MG TABLET (FP) PO SCH ×3 (06:19→21:13)
[2019-01-20] MEDS ORDERED: SODIUM CHLORIDE 250 ML IV PRN (07:56)
[2019-01-20] MEDS ORDERED: EPOETIN ALFA 10,000 UNIT/1 ML VIAL IVPUSH ONE (07:56)
[2019-01-20] MEDS: CALCIUM ACETATE 667 MG CAPSULE (FP) PO SCH ×3 (08:26→18:01)
[2019-01-20] MEDS: FERROUS SO4 325 MG TABLET (FP) PO SCH ×2 (08:26→18:01)
--- NOTE | 2019-01-20 09:21 | PN ---
Progress Note, Physician History of Present Illness: stable cough less - Current Medication List Current Medications: Active Medications Acetaminophen (Tylenol -) 650 mg PO Q6H PRN PRN Reason: FEVER Last Admin: 01/15/19 21:36 Dose: 650 mg Atorvastatin Calcium (Lipitor -) 40 mg PO HS [facility] Last Admin: 01/19/19 21:23 Dose: 40 mg Calcium Acetate (Phoslo -) 1,334 mg PO TIDCM [facility] Last Admin: 01/20/19 08:26 Dose: 1,334 mg Docusate Sodium (Colace -) 100 mg PO BID [facility] Last Admin: 01/19/19 21:23 Dose: 100 mg Epoetin Ziyad (Epogen -) 10,000 unit IVPUSH ONCE ONE Stop: 01/20/19 07:57 Ferrous Sulfate (Feosol -) 325 mg PO BIDWM [facility]PL[facility] Last Admin: 01/20/19 08:26 Dose: 325 mg Guaifenesin (Robitussin -) 10 ml PO Q6H PRN PRN Reason: COUGH Last Admin: 01/15/19 11:31 Dose: 10 ml Sodium Chloride (Normal Saline -) 250 mls @ 3,000 mls/hr IV PRN PRN PRN Reason: Hypotension during Dialysis Stop: 01/21/19 07:56 Labetalol HCl (Normodyne -) 400 mg PO TID [facility] Last Admin: 01/20/19 06:19 Dose: 400 mg Losartan Potassium (Cozaar -) 100 mg PO DAILY [facility] Last Admin: 01/19/19 09:12 Dose: 100 mg Nifedipine (Procardia Xl -) 60 mg PO DAILY [facility] Last Admin: 01/19/19 16:53 Dose: 60 mg Pantoprazole Sodium (Protonix -) 40 mg PO DAILY [facility] Last Admin: 01/19/19 09:12 Dose: 40 mg Phenytoin Sodium (Dilantin -) 200 mg PO BID [facility] Last Admin: 01/19/19 21:23 Dose: 200 mg - Objective Vital Signs: Vital Signs Temperature 98.3 F 01/20/19 07:09 Pulse Rate 85 01/20/19 07:09 Respiratory Rate 20 01/20/19 07:09 Blood Pressure 148/100 01/20/19 07:09 O2 Sat by Pulse Oximetry (%) 96 01/19/19 21:00 Constitutional: Yes: No Distress, Calm Respiratory: Yes: Regular, On Nasal O2 Gastrointestinal: Yes: Normal Bowel Sounds, Soft Musculoskeletal: Yes: WNL Extremities: Yes: WNL Neurological: Yes: Alert, Oriented Psychiatric: Yes: Alert, Oriented Labs: CBC, BMP 01/17/19 09:00 01/17/19 09:00 INR, PTT INR 1.00 (0.83-1.09) 01/14/19 13:50 Assessment/Plan patient looks sick and i am worried that she might take turn for the worse,labd have been ordered ,uncollected Problem List - Problems (1) Anemia Code(s): D64.9 - ANEMIA, UNSPECIFIED Qualifiers: Anemia type: unspecified type Qualified Code(s): D64.9 - Anemia, unspecified (2) Hyperkalemia Code(s): E87.5 - HYPERKALEMIA (3) Renal failure Code(s): N19 - UNSPECIFIED KIDNEY FAILURE Qualifiers: Renal failure chronicity: unspecified chronicity Qualified Code(s): N19 - Unspecified kidney failure sepsis fever plan continue current mgmt dialysis rest as per the team urine cx result noted will start patient on abx
[2019-01-20 11:20] LABS: HEMATOCRIT 28.9 % (32.4-45.2); HEMOGLOBIN 9.6 GM/dL (10.7-15.3); MCH 29.7 pg (25.7-33.7); MCHC 33.3 g/dl (32.0-36.0); MEAN CELL VOLUME 89.2 fl (80-96); MEAN PLT VOLUME 6.9 fl (7.5-11.1); PLATELET COUNT 321 K/MM3 (134-434); RBC 3.24 M/mm3 (3.60-5.2); RDW 15.4 % (11.6-15.6)
[2019-01-20 11:27] LABS: CALCIUM 7.3 mg/dL (8.5-10.1); CREATININE 5.7 mg/dL (0.55-1.3); POTASSIUM 3.4 mmol/L (3.5-5.1)
--- NOTE | 2019-01-20 11:39 | PN ---
Progress Note (short form) - Note Progress Note: Day 7 s/p Right IJ Trialysis Cath. Renal note appreciated with regards to request for Permacath. Will speak with Dr. Giron and see when we can get her on the schedule. Please medically optimize for impending procedure.
[2019-01-20] MEDS ORDERED: POTASSIUM CHLORIDE TABS 20 MEQ TABLET.ER (FP) PO ONE ×2 (12:11→12:30)
[2019-01-20] MEDS ORDERED: NIFEdipine E.R. 30 MG TABLET (FP) PO ONE (12:15)
--- NOTE | 2019-01-20 12:15 | PN ---
Progress Note, Physician History of Present Illness: Pt seen and examined at bedside. She is awake and alert. She is tolerating HD. She denies shortness of breath. - Current Medication List Current Medications: Active Medications Acetaminophen (Tylenol -) 650 mg PO Q6H PRN PRN Reason: FEVER Last Admin: 01/15/19 21:36 Dose: 650 mg Amoxicillin/Clavulanate Potassium (Augmentin - 500mg Tablet) 1 tab PO BID@0800, 1730 [facility] Atorvastatin Calcium (Lipitor -) 40 mg PO HS [facility] Last Admin: 01/19/19 21:23 Dose: 40 mg Calcium Acetate (Phoslo -) 1,334 mg PO TIDCM [facility] Last Admin: 01/20/19 08:26 Dose: 1,334 mg Docusate Sodium (Colace -) 100 mg PO BID [facility] Last Admin: 01/19/19 21:23 Dose: 100 mg Ferrous Sulfate (Feosol -) 325 mg PO BIDWM [facility] Last Admin: 01/20/19 08:26 Dose: 325 mg Guaifenesin (Robitussin -) 10 ml PO Q6H PRN PRN Reason: COUGH Last Admin: 01/15/19 11:31 Dose: 10 ml Sodium Chloride (Normal Saline -) 250 mls @ 3,000 mls/hr IV PRN PRN PRN Reason: Hypotension during Dialysis Stop: 01/21/19 07:56 Labetalol HCl (Normodyne -) 400 mg PO TID [facility] Last Admin: 01/20/19 06:19 Dose: 400 mg Losartan Potassium (Cozaar -) 100 mg PO DAILY [facility] Last Admin: 01/19/19 09:12 Dose: 100 mg Nifedipine (Procardia Xl -) 90 mg PO DAILY [facility] Pantoprazole Sodium (Protonix -) 40 mg PO DAILY [facility] Last Admin: 01/19/19 09:12 Dose: 40 mg Phenytoin Sodium (Dilantin -) 200 mg PO BID [facility] Last Admin: 01/19/19 21:23 Dose: 200 mg Potassium Chloride (K-Dur -) 20 meq PO ONCE ONE Stop: 01/20/19 12:12 - Objective Vital Signs: Vital Signs Temperature 98.4 F 01/20/19 09:55 Pulse Rate 81 01/20/19 10:30 Respiratory Rate 18 01/20/19 10:30 Blood Pressure 185/120 H 01/20/19 10:30 O2 Sat by Pulse Oximetry (%) 96 01/19/19 21:00 Constitutional: Yes: Calm Eyes: Yes: Conjunctiva Clear HENT: Yes: Atraumatic Neck: Yes: Supple Cardiovascular: Yes: S1, S2 Respiratory: Yes: CTA Bilaterally Gastrointestinal: Yes: Soft Genitourinary: Yes: WNL Musculoskeletal: Yes: WNL Edema: Yes Edema: LLE: 2+, RLE: 2+ Neurological: Yes: Oriented Psychiatric: Yes: Oriented Labs: CBC, BMP 01/20/19 10:00 01/20/19 10:00 INR, PTT INR 1.00 (0.83-1.09) 01/14/19 13:50 Problem List - Problems (1) Anemia Code(s): D64.9 - ANEMIA, UNSPECIFIED Qualifiers: Anemia type: unspecified type Qualified Code(s): D64.9 - Anemia, unspecified (2) Hyperkalemia Code(s): E87.5 - HYPERKALEMIA (3) Renal failure Code(s): N19 - UNSPECIFIED KIDNEY FAILURE Qualifiers: Renal failure chronicity: unspecified chronicity Qualified Code(s): N19 - Unspecified kidney failure Assessment/Plan Current Medications Generic Name Dose Route Start Last Admin Trade Name Freq PRN Reason Stop Dose Admin Acetaminophen 650 mg 01/15/19 21:22 01/15/19 21:36 Tylenol - PO 650 mg Q6H PRN Administration FEVER Amoxicillin/Clavulanate Potassium 1 tab 01/20/19 09:19 Augmentin - 500mg Tablet PO BID@0800,1730 [facility] Atorvastatin Calcium 40 mg 01/10/19 22:00 01/19/19 21:23 Lipitor - PO 40 mg HS [facility] Administration Calcium Acetate 1,334 mg 01/16/19 01:17 01/20/19 08:26 Phoslo - PO 1,334 mg TIDCM [facility] Administration Docusate Sodium 100 mg 01/10/19 22:00 01/19/19 21:23 Colace - PO 100 mg BID [facility] Administration Ferrous Sulfate 325 mg 01/11/19 08:00 01/20/19 08:26 Feosol - PO 325 mg BIDWM [facility] Administration Guaifenesin 10 ml 01/13/19 15:00 01/15/19 11:31 Robitussin - PO 10 ml Q6H PRN Administration COUGH Sodium Chloride 250 mls @ 3,000 mls/hr 01/20/19 07:56 Normal Saline - IV 01/21/19 07:56 PRN PRN Hypotension during Dialysis Labetalol HCl 400 mg 01/16/19 22:00 01/20/19 06:19 Normodyne - PO 400 mg TID [facility] Administration Losartan Potassium 100 mg 01/18/19 10:00 01/19/19 09:12 Cozaar - PO 100 mg DAILY [facility] Administration Nifedipine 90 mg 01/20/19 12:12 Procardia Xl - PO DAILY [facility] Nifedipine 30 mg 01/20/19 12:15 Procardia Xl - PO 01/20/19 12:16 ONCE ONE Pantoprazole Sodium 40 mg 01/11/19 10:00 01/19/19 09:12 Protonix - PO 40 mg DAILY [facility] Administration Phenytoin Sodium 200 mg 01/10/19 22:00 01/19/19 21:23 Dilantin - PO 200 mg BID [facility] Administration Potassium Chloride 20 meq 01/20/19 12:11 K-Dur - PO 01/20/19 12:12 ONCE ONE Impression 1. SOHAIL 2. lower ext edema 3. anemia 4. HTN 5. arthritis 6. nephrotic range proteinura 7. obesity 8. positive hep c virus on last admission 9. CKD 10. ESRD Plan - increase nifedipine to 90 mg - give bp meds on HD days as bp is elevated - add hydralazine - pt need permacath and fistula - will need HD placement - renal diet
[2019-01-20] MEDS: LOSARTAN POTASSIUM 50 MG TABLET (FP) PO SCH (13:10)
[2019-01-20] MEDS: NIFEdipine E.R. 90 MG TABLET (FP) PO SCH (13:11)
--- NOTE | 2019-01-20 13:34 | PN ---
Progress Note, Physician History of Present Illness: agree to do hd - Current Medication List Current Medications: Active Medications Acetaminophen (Tylenol -) 650 mg PO Q6H PRN PRN Reason: FEVER Last Admin: 01/15/19 21:36 Dose: 650 mg Amoxicillin/Clavulanate Potassium (Augmentin - 500mg Tablet) 1 tab PO BID@0800, 1730 [facility] Atorvastatin Calcium (Lipitor -) 40 mg PO HS [facility] Last Admin: 01/19/19 21:23 Dose: 40 mg Calcium Acetate (Phoslo -) 1,334 mg PO TIDCM [facility] Last Admin: 01/20/19 08:26 Dose: 1,334 mg Docusate Sodium (Colace -) 100 mg PO BID [facility] Last Admin: 01/19/19 21:23 Dose: 100 mg Ferrous Sulfate (Feosol -) 325 mg PO BIDWM [facility] Last Admin: 01/20/19 08:26 Dose: 325 mg Guaifenesin (Robitussin -) 10 ml PO Q6H PRN PRN Reason: COUGH Last Admin: 01/15/19 11:31 Dose: 10 ml Hydralazine HCl (Apresoline -) 10 mg PO BID [facility] Sodium Chloride (Normal Saline -) 250 mls @ 3,000 mls/hr IV PRN PRN PRN Reason: Hypotension during Dialysis Stop: 01/21/19 07:56 Labetalol HCl (Normodyne -) 400 mg PO TID [facility] Last Admin: 01/20/19 06:19 Dose: 400 mg Losartan Potassium (Cozaar -) 100 mg PO DAILY [facility] Last Admin: 01/20/19 13:10 Dose: 100 mg Nifedipine (Procardia Xl -) 90 mg PO DAILY [facility] Last Admin: 01/20/19 13:11 Dose: 90 mg Pantoprazole Sodium (Protonix -) 40 mg PO DAILY [facility] Last Admin: 01/19/19 09:12 Dose: 40 mg Phenytoin Sodium (Dilantin -) 200 mg PO BID [facility] Last Admin: 01/19/19 21:23 Dose: 200 mg - Objective Vital Signs: Vital Signs Temperature 98.4 F 01/20/19 09:55 Pulse Rate 84 01/20/19 13:00 Respiratory Rate 18 01/20/19 13:00 Blood Pressure 174/122 H 01/20/19 13:00 O2 Sat by Pulse Oximetry (%) 96 01/19/19 21:00 Constitutional: Yes: No Distress HENT: Yes: Atraumatic Neck: Yes: Supple Cardiovascular: Yes: Regular Rate and Rhythm Respiratory: Yes: CTA Bilaterally Gastrointestinal: Yes: Normal Bowel Sounds Extremities: Yes: WNL Edema: No Peripheral Pulses WNL: Yes Neurological: Yes: Alert, Oriented Labs: CBC, BMP 01/20/19 10:00 01/20/19 10:00 INR, PTT INR 1.00 (0.83-1.09) 01/14/19 13:50 Problem List - Problems (1) HTN (hypertension) Code(s): I10 - ESSENTIAL (PRIMARY) HYPERTENSION Qualifiers: Hypertension type: essential hypertension Qualified Code(s): I10 - Essential (primary) hypertension (2) Hyperkalemia Assessment/Plan: got HD Code(s): E87.5 - HYPERKALEMIA (3) Renal failure Assessment/Plan: ON HD Code(s): N19 - UNSPECIFIED KIDNEY FAILURE Qualifiers: Renal failure chronicity: unspecified chronicity Qualified Code(s): N19 - Unspecified kidney failure (4) Seizure disorder Code(s): G40.909 - EPILEPSY, UNSP, NOT INTRACTABLE, WITHOUT STATUS EPILEPTICUS (5) Anemia Code(s): D64.9 - ANEMIA, UNSPECIFIED Qualifiers: Anemia type: unspecified type Qualified Code(s): D64.9 - Anemia, unspecified (6) Acute on chronic diastolic CHF (congestive heart failure) Code(s): I50.33 - ACUTE ON CHRONIC DIASTOLIC (CONGESTIVE) HEART FAILURE (7) Hypercholesterolemia Code(s): E78.00 - PURE HYPERCHOLESTEROLEMIA, UNSPECIFIED (8) Seizures Code(s): R56.9 - UNSPECIFIED CONVULSIONS (9) Sepsis Code(s): A41.9 - SEPSIS, UNSPECIFIED ORGANISM Assessment/Plan for perma cath
[2019-01-20] MEDS: AMOX TR/POT CLAV 500MG/125MG TABLETS (FP) PO SCH ×2 (14:10→19:01)
[2019-01-20] MEDS: PHENYTOIN NA EXTENDED 100 MG CAPSULE (FP) PO SCH ×2 (14:11→21:13)
[2019-01-20] MEDS: DOCUSATE SODIUM 100 MG CAPSULE (FP) PO SCH ×2 (14:11→21:13)
[2019-01-20] MEDS: NIFEdipine E.R 60 MG TABLET (UD) PO SCH (14:12)
[2019-01-20] MEDS: PANTOPRAZOLE 40 MG TABLET (FP) PO SCH (14:12)
[2019-01-20] MEDS ORDERED: PT OWN MED DRAWER 7, Y5N ONE (20:30)
[2019-01-20] MEDS: ATORVASTATIN CA 40 MG TABLET (FP) PO SCH (21:13)
[2019-01-20] MEDS: hydrALAZINE HCL 10 MG TABLET PO SCH (21:15)
[2019-01-21] MEDS: LABETALOL HCL 200 MG TABLET (FP) PO SCH ×3 (06:14→22:21)
--- NOTE | 2019-01-21 08:30 | PN ---
Progress Note, Physician History of Present Illness: stable no new issues - Current Medication List Current Medications: Active Medications Acetaminophen (Tylenol -) 650 mg PO Q6H PRN PRN Reason: FEVER Last Admin: 01/15/19 21:36 Dose: 650 mg Amoxicillin/Clavulanate Potassium (Augmentin - 500mg Tablet) 1 tab PO BID@0800, 1730 [facility] Last Admin: 01/20/19 19:01 Dose: Not Given Atorvastatin Calcium (Lipitor -) 40 mg PO HS [facility] Last Admin: 01/20/19 21:13 Dose: 40 mg Calcium Acetate (Phoslo -) 1,334 mg PO TIDCM [facility] Last Admin: 01/20/19 18:01 Dose: 1,334 mg Docusate Sodium (Colace -) 100 mg PO BID [facility] Last Admin: 01/20/19 21:13 Dose: 100 mg Ferrous Sulfate (Feosol -) 325 mg PO BIDWM [facility] Last Admin: 01/20/19 18:01 Dose: 325 mg Guaifenesin (Robitussin -) 10 ml PO Q6H PRN PRN Reason: COUGH Last Admin: 01/15/19 11:31 Dose: 10 ml Hydralazine HCl (Apresoline -) 10 mg PO BID [facility] Last Admin: 01/20/19 21:15 Dose: 10 mg Labetalol HCl (Normodyne -) 400 mg PO TID [facility] Last Admin: 01/21/19 06:14 Dose: 400 mg Losartan Potassium (Cozaar -) 100 mg PO DAILY [facility] Last Admin: 01/20/19 13:10 Dose: 100 mg Nifedipine (Procardia Xl -) 90 mg PO DAILY [facility] Last Admin: 01/20/19 13:11 Dose: 90 mg Pantoprazole Sodium (Protonix -) 40 mg PO DAILY [facility] Last Admin: 01/20/19 14:12 Dose: 40 mg Phenytoin Sodium (Dilantin -) 200 mg PO BID [facility] Last Admin: 01/20/19 21:13 Dose: 200 mg - Objective Vital Signs: Vital Signs Temperature 98.4 F 01/21/19 06:00 Pulse Rate 90 01/21/19 06:00 Respiratory Rate 20 01/21/19 06:00 Blood Pressure 153/102 H 01/21/19 06:00 O2 Sat by Pulse Oximetry (%) 93 L 01/20/19 21:00 Constitutional: Yes: No Distress, Calm Cardiovascular: Yes: S1, S2 Respiratory: Yes: Regular, CTA Bilaterally Gastrointestinal: Yes: Normal Bowel Sounds, Soft Musculoskeletal: Yes: WNL Extremities: Yes: WNL Neurological: Yes: Alert, Oriented Psychiatric: Yes: Alert, Oriented Labs: CBC, BMP 01/20/19 10:00 01/20/19 10:00 INR, PTT INR 1.00 (0.83-1.09) 01/14/19 13:50 Assessment/Plan patient looks sick and i am worried that she might take turn for the worse,labd have been ordered ,uncollected Problem List - Problems (1) Anemia Code(s): D64.9 - ANEMIA, UNSPECIFIED Qualifiers: Anemia type: unspecified type Qualified Code(s): D64.9 - Anemia, unspecified (2) Hyperkalemia Code(s): E87.5 - HYPERKALEMIA (3) Renal failure Code(s): N19 - UNSPECIFIED KIDNEY FAILURE Qualifiers: Renal failure chronicity: unspecified chronicity Qualified Code(s): N19 - Unspecified kidney failure sepsis fever plan continue current mgmt dialysis rest as per the team urine cx result noted continue abx
--- NOTE | 2019-01-21 10:44 | PN ---
Progress Note (short form) - Note Progress Note: Patient scheduled for Permacath placement today with Dr Giron, will proceed as scheduled. Patient will need AVF creation on this admission. Patient is Left hand dominant. B/L UE vein mapping ordered. A/P: ESRD 1) f/u vein mapping 2) Nothing in right arm 3) plan for AVF creation on 01/23/[address] Giron
[2019-01-21] MEDS: PHENYTOIN NA EXTENDED 100 MG CAPSULE (FP) PO SCH ×2 (11:39→22:19)
[2019-01-21] MEDS: CALCIUM ACETATE 667 MG CAPSULE (FP) PO SCH ×3 (11:39→18:33)
[2019-01-21] MEDS: FERROUS SO4 325 MG TABLET (FP) PO SCH ×2 (11:40→18:32)
[2019-01-21] MEDS: PANTOPRAZOLE 40 MG TABLET (FP) PO SCH (11:40)
[2019-01-21] MEDS: AMOX TR/POT CLAV 500MG/125MG TABLETS (FP) PO SCH ×2 (11:40→18:32)
[2019-01-21] MEDS: LOSARTAN POTASSIUM 50 MG TABLET (FP) PO SCH (11:40)
[2019-01-21] MEDS: DOCUSATE SODIUM 100 MG CAPSULE (FP) PO SCH ×2 (11:41→22:19)
[2019-01-21] MEDS ORDERED: PT OWN MED DRAWER 7, Y5N ONE (11:43)
[2019-01-21] MEDS: hydrALAZINE HCL 10 MG TABLET PO SCH (11:43)
[2019-01-21] MEDS: NIFEdipine E.R. 90 MG TABLET (FP) PO SCH (11:44)
--- NOTE | 2019-01-21 14:04 | EKG ---
Test Reason : Blood Pressure : / mmHG Vent. Rate : 083 BPM Atrial Rate : 083 BPM P-R Int : 150 ms QRS Dur : 076 ms QT Int : 416 ms P-R-T Axes : 036 013 021 degrees QTc Int : 488 ms NORMAL SINUS RHYTHM PROLONGED QT ABNORMAL ECG WHEN COMPARED WITH ECG OF 10-JAN-2019 12:42, NO SIGNIFICANT CHANGE WAS FOUND Confirmed by MD Scott, Darrion ([id number]) on 01/21/2019 2:04:18 PM Referred By: Sage JUAREZ Confirmed By:Darrion Chavez MD
--- NOTE | 2019-01-21 14:16 | PN ---
Progress Note, Physician - Current Medication List Current Medications: Active Medications Acetaminophen (Tylenol -) 650 mg PO Q6H PRN PRN Reason: FEVER Last Admin: 01/15/19 21:36 Dose: 650 mg Amoxicillin/Clavulanate Potassium (Augmentin - 500mg Tablet) 1 tab PO BID@0800, 1730 [facility] Last Admin: 01/21/19 11:40 Dose: 1 tab Atorvastatin Calcium (Lipitor -) 40 mg PO HS [facility] Last Admin: 01/20/19 21:13 Dose: 40 mg Calcium Acetate (Phoslo -) 1,334 mg PO TIDCM [facility] Last Admin: 01/21/19 11:41 Dose: Not Given Docusate Sodium (Colace -) 100 mg PO BID [facility] Last Admin: 01/21/19 11:41 Dose: Not Given Ferrous Sulfate (Feosol -) 325 mg PO BIDWM [facility] Last Admin: 01/21/19 11:40 Dose: 325 mg Guaifenesin (Robitussin -) 10 ml PO Q6H PRN PRN Reason: COUGH Last Admin: 01/15/19 11:31 Dose: 10 ml Hydralazine HCl (Apresoline -) 10 mg PO BID [facility] Last Admin: 01/21/19 11:43 Dose: 10 mg Labetalol HCl (Normodyne -) 400 mg PO TID [facility] Last Admin: 01/21/19 14:00 Dose: 400 mg Losartan Potassium (Cozaar -) 100 mg PO DAILY [facility] Last Admin: 01/21/19 11:40 Dose: 100 mg Nifedipine (Procardia Xl -) 90 mg PO DAILY [facility] Last Admin: 01/21/19 11:44 Dose: 90 mg Pantoprazole Sodium (Protonix -) 40 mg PO DAILY [facility] Last Admin: 01/21/19 11:40 Dose: 40 mg Phenytoin Sodium (Dilantin -) 200 mg PO BID [facility] Last Admin: 01/21/19 11:39 Dose: 200 mg - Objective Vital Signs: Vital Signs Temperature 98.8 F 01/21/19 09:53 Pulse Rate 83 01/21/19 09:53 Respiratory Rate 20 01/21/19 09:53 Blood Pressure 176/108 H 01/21/19 09:53 O2 Sat by Pulse Oximetry (%) 93 L 01/21/19 09:00 Constitutional: Yes: No Distress HENT: Yes: Atraumatic Neck: Yes: Supple Cardiovascular: Yes: Regular Rate and Rhythm Respiratory: Yes: CTA Bilaterally Gastrointestinal: Yes: Normal Bowel Sounds Extremities: Yes: WNL Edema: No Peripheral Pulses WNL: Yes Neurological: Yes: Alert, Oriented Labs: CBC, BMP 01/20/19 10:00 01/20/19 10:00 INR, PTT INR 1.00 (0.83-1.09) 01/14/19 13:50 Problem List - Problems (1) HTN (hypertension) Code(s): I10 - ESSENTIAL (PRIMARY) HYPERTENSION Qualifiers: Hypertension type: essential hypertension Qualified Code(s): I10 - Essential (primary) hypertension (2) Hyperkalemia Assessment/Plan: got HD monitor Code(s): E87.5 - HYPERKALEMIA (3) Renal failure Assessment/Plan: ON HD Code(s): N19 - UNSPECIFIED KIDNEY FAILURE Qualifiers: Renal failure chronicity: unspecified chronicity Qualified Code(s): N19 - Unspecified kidney failure (4) Seizure disorder Code(s): G40.909 - EPILEPSY, UNSP, NOT INTRACTABLE, WITHOUT STATUS EPILEPTICUS (5) Anemia Code(s): D64.9 - ANEMIA, UNSPECIFIED Qualifiers: Anemia type: unspecified type Qualified Code(s): D64.9 - Anemia, unspecified (6) Acute on chronic diastolic CHF (congestive heart failure) Code(s): I50.33 - ACUTE ON CHRONIC DIASTOLIC (CONGESTIVE) HEART FAILURE (7) Hypercholesterolemia Code(s): E78.00 - PURE HYPERCHOLESTEROLEMIA, UNSPECIFIED (8) Seizures Code(s): R56.9 - UNSPECIFIED CONVULSIONS (9) Sepsis Assessment/Plan: on abx cxs pending Code(s): A41.9 - SEPSIS, UNSPECIFIED ORGANISM
[2019-01-21] MEDS: SPIRONOLACTONE 25 MG TABLET (FP) PO SCH (16:21)
--- NOTE | 2019-01-21 17:19 | PN ---
Progress Note (short form) - Note Progress Note: Vascular Surgery Pt cancelled for today. Had episode of chest pain. Labs and ekg ordered. Will need permacath and avf on . Vein mapping is ordered. Abilio Giron DO
[2019-01-21] MEDS ORDERED: SODIUM CHLORIDE 250 ML IV PRN (18:48)
--- NOTE | 2019-01-21 18:48 | PN ---
Progress Note, Physician History of Present Illness: Pt seen and examined at bedside. She had an episode of chest pain last night. She says she feels well now. Permacath was cancelled for today. - Current Medication List Current Medications: Active Medications Acetaminophen (Tylenol -) 650 mg PO Q6H PRN PRN Reason: FEVER Last Admin: 01/15/19 21:36 Dose: 650 mg Amoxicillin/Clavulanate Potassium (Augmentin - 500mg Tablet) 1 tab PO BID@0800, 1730 [facility] Last Admin: 01/21/19 18:32 Dose: 1 tab Atorvastatin Calcium (Lipitor -) 40 mg PO HS [facility] Last Admin: 01/20/19 21:13 Dose: 40 mg Calcium Acetate (Phoslo -) 1,334 mg PO TIDCM [facility] Last Admin: 01/21/19 18:33 Dose: 1,334 mg Docusate Sodium (Colace -) 100 mg PO BID [facility] Last Admin: 01/21/19 11:41 Dose: Not Given Ferrous Sulfate (Feosol -) 325 mg PO BIDWM [facility] Last Admin: 01/21/19 18:32 Dose: 325 mg Guaifenesin (Robitussin -) 10 ml PO Q6H PRN PRN Reason: COUGH Last Admin: 01/15/19 11:31 Dose: 10 ml Hydralazine HCl (Apresoline -) 25 mg PO TID [facility] Labetalol HCl (Normodyne -) 400 mg PO TID [facility] Last Admin: 01/21/19 14:00 Dose: 400 mg Losartan Potassium (Cozaar -) 100 mg PO DAILY [facility] Last Admin: 01/21/19 11:40 Dose: 100 mg Nifedipine (Procardia Xl -) 90 mg PO DAILY [facility] Last Admin: 01/21/19 11:44 Dose: 90 mg Pantoprazole Sodium (Protonix -) 40 mg PO DAILY [facility] Last Admin: 01/21/19 11:40 Dose: 40 mg Phenytoin Sodium (Dilantin -) 200 mg PO BID [facility] Last Admin: 01/21/19 11:39 Dose: 200 mg Spironolactone (Aldactone -) 50 mg PO DAILY [facility] Last Admin: 01/21/19 16:21 Dose: 50 mg - Objective Vital Signs: Vital Signs Temperature 98 F 01/21/19 16:36 Pulse Rate 92 H 01/21/19 16:36 Respiratory Rate 20 01/21/19 16:36 Blood Pressure 166/108 H 01/21/19 16:36 O2 Sat by Pulse Oximetry (%) 93 L 01/21/19 09:00 Constitutional: Yes: Calm Eyes: Yes: Conjunctiva Clear HENT: Yes: Atraumatic Neck: Yes: Supple Cardiovascular: Yes: S1, S2 Respiratory: Yes: CTA Bilaterally Gastrointestinal: Yes: Soft, Abdomen, Obese Genitourinary: Yes: WNL Musculoskeletal: Yes: WNL Edema: Yes Neurological: Yes: Oriented Psychiatric: Yes: Oriented Labs: CBC, BMP 01/20/19 10:00 01/20/19 10:00 INR, PTT INR 1.00 (0.83-1.09) 01/14/19 13:50 Problem List - Problems (1) Anemia Code(s): D64.9 - ANEMIA, UNSPECIFIED Qualifiers: Anemia type: unspecified type Qualified Code(s): D64.9 - Anemia, unspecified (2) Hyperkalemia Code(s): E87.5 - HYPERKALEMIA (3) Renal failure Code(s): N19 - UNSPECIFIED KIDNEY FAILURE Qualifiers: Renal failure chronicity: unspecified chronicity Qualified Code(s): N19 - Unspecified kidney failure Assessment/Plan Current Medications Generic Name Dose Route Start Last Admin Trade Name Freq PRN Reason Stop Dose Admin Acetaminophen 650 mg 01/15/19 21:22 01/15/19 21:36 Tylenol - PO 650 mg Q6H PRN Administration FEVER Amoxicillin/Clavulanate Potassium 1 tab 01/20/19 09:19 01/21/19 18:32 Augmentin - 500mg Tablet PO 1 tab BID@0800,1730 [facility] Administration Atorvastatin Calcium 40 mg 01/10/19 22:00 01/20/19 21:13 Lipitor - PO 40 mg HS ELIJAH Administration Calcium Acetate 1,334 mg 01/16/19 01:17 01/21/19 18:33 Phoslo - PO 1,334 mg TIDCM [facility]AH Administration Docusate Sodium 100 mg 01/10/19 22:00 01/21/19 11:41 Colace - PO Not Given BID ELIJAH Ferrous Sulfate 325 mg 01/11/19 08:00 01/21/19 18:32 Feosol - PO 325 mg BIDWM ELIJAH Administration Guaifenesin 10 ml 01/13/19 15:00 01/15/19 11:31 Robitussin - PO 10 ml Q6H PRN Administration COUGH Hydralazine HCl 25 mg 01/21/19 18:30 Apresoline - PO TID ELIJAH Labetalol HCl 400 mg 01/16/19 22:00 01/21/19 14:00 Normodyne - PO 400 mg TID ELIJAH Administration Losartan Potassium 100 mg 01/18/19 10:00 01/21/19 11:40 Cozaar - PO 100 mg DAILY [facility] Administration Nifedipine 90 mg 01/20/19 12:30 01/21/19 11:44 Procardia Xl - PO 90 mg DAILY [facility] Administration Pantoprazole Sodium 40 mg 01/11/19 10:00 01/21/19 11:40 Protonix - PO 40 mg DAILY [facility] Administration Phenytoin Sodium 200 mg 01/10/19 22:00 01/21/19 11:39 Dilantin - PO 200 mg BID [facility]AH Administration Spironolactone 50 mg 01/21/19 16:00 01/21/19 16:21 Aldactone - PO 50 mg DAILY [facility]IJAH Administration Impression 1. SOHAIL 2. lower ext edema 3. anemia 4. HTN 5. arthritis 6. nephrotic range proteinura 7. obesity 8. positive hep c virus on last admission 9. CKD 10. ESRD Plan - bp poorly controlled - bp meds adjusted - cont to monitor - HD tomorrow - send placement info to [facility] - renal diet
[2019-01-21] MEDS: ATORVASTATIN CA 40 MG TABLET (FP) PO SCH (22:19)
[2019-01-21] MEDS: hydrALAZINE HCL 25 MG TABLET (FP) PO SCH ×2 (22:21→22:31)
[2019-01-22] MEDS: hydrALAZINE HCL 25 MG TABLET (FP) PO SCH ×3 (06:59→22:59)
[2019-01-22] MEDS: LABETALOL HCL 200 MG TABLET (FP) PO SCH ×3 (07:00→22:59)
[2019-01-22] MEDS ORDERED: PT OWN MED DRAWER 7, Y5N ONE (07:04)
--- NOTE | 2019-01-22 08:53 | SPA.PREOP ---
- PRE-OP NOTE Dx: ESRD now needs HD Planned Procedure: Permacath and AVF 01/23/19 Surgeon: Juan Giron Last Vital Signs Temp Pulse Resp BP Pulse Ox 96.8 F L 82 20 160/118 H 93 L 01/22/19 06:14 01/22/19 06:14 01/22/19 06:14 01/22/19 06:14 01/21/19 09:00 Lab Results WBC 10.0 K/mm3 (4.0-10.0) 01/20/19 10:00 RBC 3.24 M/mm3 (3.60-5.2) L 01/20/19 10:00 Hgb 9.6 GM/dL (10.7-15.3) L 01/20/19 10:00 Hct 28.9 % (32.4-45.2) L 01/20/19 10:00 MCV 89.2 fl (80-96) 01/20/19 10:00 MCHC 33.3 g/dl (32.0-36.0) 01/20/19 10:00 RDW 15.4 % (11.6-15.6) 01/20/19 10:00 Plt Count 321 K/MM3 (134-434) 01/20/19 10:00 Sodium 141 mmol/L (136-145) 01/20/19 10:00 Potassium 3.4 mmol/L (3.5-5.1) L 01/20/19 10:00 Chloride 106 mmol/L (98-107) 01/20/19 10:00 Carbon Dioxide 28 mmol/L (21-32) 01/20/19 10:00 Anion Gap 7 MMOL/L (8-16) L 01/20/19 10:00 BUN 22 mg/dL (7-18) H 01/20/19 10:00 Creatinine 5.7 mg/dL (0.55-1.3) H 01/20/19 10:00 Random Glucose 72 mg/dL (74-106) L 01/20/19 10:00 Calcium 7.3 mg/dL (8.5-10.1) L 01/20/19 10:00 Blood Type A POSITIVE 01/14/19 19:45 Antibody Screen Negative 01/14/19 19:45 INR 1.00 (0.83-1.09) 01/14/19 13:50 - IMAGING Chest X-ray: Report Reviewed, Image Reviewed EKG: Report Reviewed, Image Reviewed - ASSESSMENT/PLAN 1. Make NPO after midnight except po meds 2. GI/DVT PPX 3. Medical optimization / clearance 4. Consent to be obtained by surgeon after risks, benefits and alternatives discussed with patient and or Health Care Proxy. Problem List - Problems (1) Renal failure Code(s): N19 - UNSPECIFIED KIDNEY FAILURE Qualifiers: Renal failure chronicity: unspecified chronicity Qualified Code(s): N19 - Unspecified kidney failure (2) Acute on chronic diastolic CHF (congestive heart failure) Code(s): I50.33 - ACUTE ON CHRONIC DIASTOLIC (CONGESTIVE) HEART FAILURE (3) Body mass index (BMI) of 40.1 to 44.9 in adult Code(s): Z68.41 - BODY MASS INDEX (BMI) 40.0-44.9, ADULT Visit type - Case Type Case Type: ED Admission
--- NOTE | 2019-01-22 09:36 | PN ---
Progress Note, Physician Chief Complaint: Pt alert; denies chest pain or dyspnea.No headahce or dizziness. - Current Medication List Current Medications: Active Medications Acetaminophen (Tylenol -) 650 mg PO Q6H PRN PRN Reason: FEVER Last Admin: 01/15/19 21:36 Dose: 650 mg Amoxicillin/Clavulanate Potassium (Augmentin - 500mg Tablet) 1 tab PO BID@0800, 1730 [facility] Last Admin: 01/21/19 18:32 Dose: 1 tab Atorvastatin Calcium (Lipitor -) 40 mg PO HS [facility] Last Admin: 01/21/19 22:19 Dose: 40 mg Calcium Acetate (Phoslo -) 1,334 mg PO TIDCM [facility] Last Admin: 01/21/19 18:33 Dose: 1,334 mg Docusate Sodium (Colace -) 100 mg PO BID [facility] Last Admin: 01/21/19 22:19 Dose: 100 mg Ferrous Sulfate (Feosol -) 325 mg PO BIDWM [facility] Last Admin: 01/21/19 18:32 Dose: 325 mg Guaifenesin (Robitussin -) 10 ml PO Q6H PRN PRN Reason: COUGH Last Admin: 01/15/19 11:31 Dose: 10 ml Hydralazine HCl (Apresoline -) 25 mg PO TID [facility] Last Admin: 01/22/19 06:59 Dose: 25 mg Sodium Chloride (Normal Saline -) 250 mls @ 3,000 mls/hr IV PRN PRN PRN Reason: Hypotension during Dialysis Stop: 01/22/19 18:48 Labetalol HCl (Normodyne -) 400 mg PO TID [facility] Last Admin: 01/22/19 07:00 Dose: 400 mg Losartan Potassium (Cozaar -) 100 mg PO DAILY [facility] Last Admin: 01/21/19 11:40 Dose: 100 mg Nifedipine (Procardia Xl -) 90 mg PO DAILY [facility] Last Admin: 01/21/19 11:44 Dose: 90 mg Pantoprazole Sodium (Protonix -) 40 mg PO DAILY [facility] Last Admin: 01/21/19 11:40 Dose: 40 mg Phenytoin Sodium (Dilantin -) 200 mg PO BID [facility] Last Admin: 01/21/19 22:19 Dose: 200 mg Spironolactone (Aldactone -) 50 mg PO DAILY [facility] Last Admin: 01/21/19 16:21 Dose: 50 mg - Objective Vital Signs: Vital Signs Temperature 96.8 F L 01/22/19 06:14 Pulse Rate 82 01/22/19 06:14 Respiratory Rate 20 01/22/19 06:14 Blood Pressure 160/118 H 01/22/19 06:14 O2 Sat by Pulse Oximetry (%) 93 L 01/21/19 09:00 Constitutional: Yes: No Distress Labs: CBC, BMP 01/20/19 10:00 01/20/19 10:00 INR, PTT INR 1.00 (0.83-1.09) 01/14/19 13:50 Problem List - Problems (1) Acute on chronic diastolic CHF (congestive heart failure) Assessment/Plan: On abetolol. Add 2nd agent, e.g. ACEI or ARB, or amlodipine. F/u BUN/Cr, electrolytes, daily wt, Is and Os. Code(s): I50.33 - ACUTE ON CHRONIC DIASTOLIC (CONGESTIVE) HEART FAILURE (2) Anemia Assessment/Plan: on iron supplements. Code(s): D64.9 - ANEMIA, UNSPECIFIED Qualifiers: Anemia type: unspecified type Qualified Code(s): D64.9 - Anemia, unspecified (3) Hypercholesterolemia Assessment/Plan: on atorvastatin; increase dose to keep LDL < 70 mg/dl. Code(s): E78.00 - PURE HYPERCHOLESTEROLEMIA, UNSPECIFIED (4) Renal failure Code(s): N19 - UNSPECIFIED KIDNEY FAILURE Qualifiers: Renal failure chronicity: unspecified chronicity Qualified Code(s): N19 - Unspecified kidney failure (5) Cigarette nicotine dependence Code(s): F17.210 - NICOTINE DEPENDENCE, CIGARETTES, UNCOMPLICATED (6) [place] cardiac risk >20% in next 10 years Code(s): Z91.89 - OTH PERSONAL RISK FACTORS, NOT ELSEWHERE CLASSIFIED (7) Hypertensive emergency Assessment/Plan: On labetolol 400 mg, which was increased to tid; Losartan also added; now 100 mg/d. Consider sprionolactone if remains refractory HTN, now that pt is on hemodialysis. Code(s): I16.1 - HYPERTENSIVE EMERGENCY (8) Lower extremity edema Code(s): R60.0 - LOCALIZED EDEMA (9) Seizures Code(s): R56.9 - UNSPECIFIED CONVULSIONS (10) Osteoarthritis, knee Code(s): M17.10 - UNILATERAL PRIMARY OSTEOARTHRITIS, UNSPECIFIED KNEE
--- NOTE | 2019-01-22 09:57 | PN ---
Progress Note, Physician History of Present Illness: patient stable no new issues - Current Medication List Current Medications: Active Medications Acetaminophen (Tylenol -) 650 mg PO Q6H PRN PRN Reason: FEVER Last Admin: 01/15/19 21:36 Dose: 650 mg Atorvastatin Calcium (Lipitor -) 40 mg PO HS [facility] Last Admin: 01/21/19 22:19 Dose: 40 mg Calcium Acetate (Phoslo -) 1,334 mg PO TIDCM [facility] Last Admin: 01/21/19 18:33 Dose: 1,334 mg Docusate Sodium (Colace -) 100 mg PO BID [facility] Last Admin: 01/21/19 22:19 Dose: 100 mg Ferrous Sulfate (Feosol -) 325 mg PO BIDWM [facility] Last Admin: 01/21/19 18:32 Dose: 325 mg Guaifenesin (Robitussin -) 10 ml PO Q6H PRN PRN Reason: COUGH Last Admin: 01/15/19 11:31 Dose: 10 ml Hydralazine HCl (Apresoline -) 25 mg PO TID [facility] Last Admin: 01/22/19 06:59 Dose: 25 mg Sodium Chloride (Normal Saline -) 250 mls @ 3,000 mls/hr IV PRN PRN PRN Reason: Hypotension during Dialysis Stop: 01/22/19 18:48 Labetalol HCl (Normodyne -) 400 mg PO TID [facility] Last Admin: 01/22/19 07:00 Dose: 400 mg Linezolid (Zyvox (Restricted To Id) -) 600 mg PO BID [facility] Losartan Potassium (Cozaar -) 100 mg PO DAILY [facility] Last Admin: 01/21/19 11:40 Dose: 100 mg Nifedipine (Procardia Xl -) 90 mg PO DAILY [facility] Last Admin: 01/21/19 11:44 Dose: 90 mg Pantoprazole Sodium (Protonix -) 40 mg PO DAILY [facility] Last Admin: 01/21/19 11:40 Dose: 40 mg Phenytoin Sodium (Dilantin -) 200 mg PO BID [facility] Last Admin: 01/21/19 22:19 Dose: 200 mg Spironolactone (Aldactone -) 50 mg PO DAILY [facility] Last Admin: 01/21/19 16:21 Dose: 50 mg - Objective Vital Signs: Vital Signs Temperature 96.8 F L 01/22/19 06:14 Pulse Rate 82 01/22/19 06:14 Respiratory Rate 20 01/22/19 06:14 Blood Pressure 160/118 H 01/22/19 06:14 O2 Sat by Pulse Oximetry (%) 93 L 01/21/19 09:00 Constitutional: Yes: No Distress, Calm HENT: Yes: Atraumatic Cardiovascular: Yes: S1, S2 Respiratory: Yes: Regular, CTA Bilaterally Gastrointestinal: Yes: Normal Bowel Sounds, Soft Musculoskeletal: Yes: WNL Extremities: Yes: WNL Neurological: Yes: Alert, Oriented Psychiatric: Yes: Alert, Oriented Labs: CBC, BMP 01/20/19 10:00 01/20/19 10:00 INR, PTT INR 1.00 (0.83-1.09) 01/14/19 13:50 Assessment/Plan patient looks sick and i am worried that she might take turn for the worse,labd have been ordered ,uncollected Problem List - Problems (1) Anemia Code(s): D64.9 - ANEMIA, UNSPECIFIED Qualifiers: Anemia type: unspecified type Qualified Code(s): D64.9 - Anemia, unspecified (2) Hyperkalemia Code(s): E87.5 - HYPERKALEMIA (3) Renal failure Code(s): N19 - UNSPECIFIED KIDNEY FAILURE Qualifiers: Renal failure chronicity: unspecified chronicity Qualified Code(s): N19 - Unspecified kidney failure sepsis fever plan cx results noted will start zyox patient for fistula tomorrow rest as per the team
[2019-01-22 10:44] LABS: HEMATOCRIT 30.1 % (32.4-45.2); MCH 29.6 pg (25.7-33.7); MCHC 33.2 g/dl (32.0-36.0); MEAN CELL VOLUME 89.4 fl (80-96); MEAN PLT VOLUME 6.8 fl (7.5-11.1); PLATELET COUNT 332 K/MM3 (134-434); RBC 3.37 M/mm3 (3.60-5.2); WHITE BLOOD COUNT 11.2 K/mm3 (4.0-10.0)
[2019-01-22] MEDS: FERROUS SO4 325 MG TABLET (FP) PO SCH ×2 (10:53→18:02)
[2019-01-22] MEDS: CALCIUM ACETATE 667 MG CAPSULE (FP) PO SCH ×3 (10:53→18:02)
[2019-01-22 11:13] LABS: ANION GAP 11 MMOL/L (8-16); BLOOD UREA NITROGEN 19 mg/dL (7-18); CALCIUM 7.7 mg/dL (8.5-10.1); CHLORIDE 104 mmol/L (98-107); CO2 26 mmol/L (21-32); CREATININE 4.9 mg/dL (0.55-1.3); GLUCOSE,RANDOM 70 mg/dL (74-106); PHOSPHOROUS 5.1 mg/dL (2.5-4.9); POTASSIUM 3.5 mmol/L (3.5-5.1); SODIUM 142 mmol/L (136-145)
[2019-01-22] MEDS: SPIRONOLACTONE 25 MG TABLET (FP) PO SCH (11:44)
[2019-01-22] MEDS: PANTOPRAZOLE 40 MG TABLET (FP) PO SCH (11:44)
[2019-01-22] MEDS: PHENYTOIN NA EXTENDED 100 MG CAPSULE (FP) PO SCH ×2 (11:44→22:57)
[2019-01-22] MEDS: LOSARTAN POTASSIUM 50 MG TABLET (FP) PO SCH (11:44)
[2019-01-22] MEDS: NIFEdipine E.R. 90 MG TABLET (FP) PO SCH (11:45)
[2019-01-22] MEDS: DOCUSATE SODIUM 100 MG CAPSULE (FP) PO SCH ×2 (11:45→23:00)
--- NOTE | 2019-01-22 12:03 | PN ---
Progress Note, Physician History of Present Illness: Pt seen and examined at bedside. She is awake and alert. She is tolerating HD. - Current Medication List Current Medications: Active Medications Acetaminophen (Tylenol -) 650 mg PO Q6H PRN PRN Reason: FEVER Last Admin: 01/15/19 21:36 Dose: 650 mg Atorvastatin Calcium (Lipitor -) 40 mg PO HS [facility] Last Admin: 01/21/19 22:19 Dose: 40 mg Calcium Acetate (Phoslo -) 1,334 mg PO TIDCM [facility] Last Admin: 01/22/19 10:53 Dose: Not Given Docusate Sodium (Colace -) 100 mg PO BID [facility] Last Admin: 01/22/19 11:45 Dose: 100 mg Ferrous Sulfate (Feosol -) 325 mg PO BIDWM [facility] Last Admin: 01/22/19 10:53 Dose: Not Given Guaifenesin (Robitussin -) 10 ml PO Q6H PRN PRN Reason: COUGH Last Admin: 01/15/19 11:31 Dose: 10 ml Hydralazine HCl (Apresoline -) 25 mg PO TID [facility] Last Admin: 01/22/19 06:59 Dose: 25 mg Sodium Chloride (Normal Saline -) 250 mls @ 3,000 mls/hr IV PRN PRN PRN Reason: Hypotension during Dialysis Stop: 01/22/19 18:48 Labetalol HCl (Normodyne -) 400 mg PO TID [facility] Last Admin: 01/22/19 07:00 Dose: 400 mg Linezolid (Zyvox (Restricted To Id) -) 600 mg PO BID [facility] Losartan Potassium (Cozaar -) 100 mg PO DAILY [facility] Last Admin: 01/22/19 11:44 Dose: 100 mg Nifedipine (Procardia Xl -) 90 mg PO DAILY [facility] Last Admin: 01/22/19 11:45 Dose: 90 mg Pantoprazole Sodium (Protonix -) 40 mg PO DAILY [facility] Last Admin: 01/22/19 11:44 Dose: 40 mg Phenytoin Sodium (Dilantin -) 200 mg PO BID [facility] Last Admin: 01/22/19 11:44 Dose: 200 mg Spironolactone (Aldactone -) 50 mg PO DAILY [facility] Last Admin: 01/22/19 11:44 Dose: 50 mg - Objective Vital Signs: Vital Signs Temperature 98.1 F 01/22/19 09:40 Pulse Rate 77 01/22/19 11:45 Respiratory Rate 18 01/22/19 11:45 Blood Pressure 1701/108 H 01/22/19 11:45 O2 Sat by Pulse Oximetry (%) 93 L 01/21/19 09:00 Constitutional: Yes: Calm Eyes: Yes: Conjunctiva Clear HENT: Yes: Atraumatic Neck: Yes: Supple Cardiovascular: Yes: S1, S2 Respiratory: Yes: CTA Bilaterally Gastrointestinal: Yes: Soft, Abdomen, Obese Genitourinary: Yes: WNL Edema: Yes Edema: LLE: 1+, RLE: 1+ Neurological: Yes: Oriented Psychiatric: Yes: Oriented Labs: CBC, BMP 01/22/19 09:45 01/22/19 09:45 INR, PTT INR 1.00 (0.83-1.09) 01/14/19 13:50 Problem List - Problems (1) Anemia Code(s): D64.9 - ANEMIA, UNSPECIFIED Qualifiers: Anemia type: unspecified type Qualified Code(s): D64.9 - Anemia, unspecified (2) Hyperkalemia Code(s): E87.5 - HYPERKALEMIA (3) Renal failure Code(s): N19 - UNSPECIFIED KIDNEY FAILURE Qualifiers: Renal failure chronicity: unspecified chronicity Qualified Code(s): N19 - Unspecified kidney failure Assessment/Plan Current Medications Generic Name Dose Route Start Last Admin Trade Name Freq PRN Reason Stop Dose Admin Acetaminophen 650 mg 01/15/19 21:22 01/15/19 21:36 Tylenol - PO 650 mg Q6H PRN Administration FEVER Atorvastatin Calcium 40 mg 01/10/19 22:00 01/21/19 22:19 Lipitor - PO 40 mg HS ELIJAH Administration Calcium Acetate 1,334 mg 01/16/19 01:17 01/22/19 10:53 Phoslo - PO Not Given TIDCM ELIJAH Docusate Sodium 100 mg 01/10/19 22:00 01/22/19 11:45 Colace - PO 100 mg BID ELIJAH Administration Ferrous Sulfate 325 mg 01/11/19 08:00 01/22/19 10:53 Feosol - PO Not Given BIDWM ELIJAH Guaifenesin 10 ml 01/13/19 15:00 01/15/19 11:31 Robitussin - PO 10 ml Q6H PRN Administration COUGH Hydralazine HCl 25 mg 01/21/19 18:30 01/22/19 06:59 Apresoline - PO 25 mg TID ELIJAH Administration Sodium Chloride 250 mls @ 3,000 mls/hr 01/21/19 18:48 Normal Saline - IV 01/22/19 18:48 PRN PRN Hypotension during Dialysis Labetalol HCl 400 mg 01/16/19 22:00 01/22/19 07:00 Normodyne - PO 400 mg TID ELIJAH Administration Linezolid 600 mg 01/22/19 10:00 Zyvox (Restricted To Id) - PO BID [facility]IJAH Losartan Potassium 100 mg 01/18/19 10:00 01/22/19 11:44 Cozaar - PO 100 mg DAILY [facility]AH Administration Nifedipine 90 mg 01/20/19 12:30 01/22/19 11:45 Procardia Xl - PO 90 mg DAILY [facility]IJAH Administration Pantoprazole Sodium 40 mg 01/11/19 10:00 01/22/19 11:44 Protonix - PO 40 mg DAILY [facility] Administration Phenytoin Sodium 200 mg 01/10/19 22:00 01/22/19 11:44 Dilantin - PO 200 mg BID EL[facility]AH Administration Spironolactone 50 mg 01/21/19 16:00 01/22/19 11:44 Aldactone - PO 50 mg DAILY ELIJAH Administration Impression 1. SOHAIL 2. lower ext edema 3. anemia 4. HTN 5. arthritis 6. nephrotic range proteinura 7. obesity 8. positive hep c virus on last admission 9. CKD 10. ESRD Plan - increase hydralazine dose - increase labetolol - vascular for permacath - no dont hold bp meds before HD or if NPO - send placement info to [facility] on [email or web address] - renal diet
[2019-01-22] MEDS: LINEZOLID 600 MG TABLET (RESTRICTED TO ID) PO SCH ×2 (15:22→22:49)
--- NOTE | 2019-01-22 18:22 | PN ---
Progress Note, Physician History of Present Illness: stable - Current Medication List Current Medications: Active Medications Acetaminophen (Tylenol -) 650 mg PO Q6H PRN PRN Reason: FEVER Last Admin: 01/15/19 21:36 Dose: 650 mg Atorvastatin Calcium (Lipitor -) 40 mg PO HS [facility] Last Admin: 01/21/19 22:19 Dose: 40 mg Calcium Acetate (Phoslo -) 1,334 mg PO TIDCM [facility] Last Admin: 01/22/19 18:02 Dose: 1,334 mg Docusate Sodium (Colace -) 100 mg PO BID [facility] Last Admin: 01/22/19 11:45 Dose: 100 mg Ferrous Sulfate (Feosol -) 325 mg PO BIDWM [facility] Last Admin: 01/22/19 18:02 Dose: 325 mg Guaifenesin (Robitussin -) 10 ml PO Q6H PRN PRN Reason: COUGH Last Admin: 01/15/19 11:31 Dose: 10 ml Hydralazine HCl (Apresoline -) 50 mg PO TID [facility] Last Admin: 01/22/19 15:21 Dose: 50 mg Sodium Chloride (Normal Saline -) 250 mls @ 3,000 mls/hr IV PRN PRN PRN Reason: Hypotension during Dialysis Stop: 01/22/19 18:48 Labetalol HCl (Normodyne -) 600 mg PO TID [facility] Last Admin: 01/22/19 15:21 Dose: 600 mg Linezolid (Zyvox (Restricted To Id) -) 600 mg PO BID [facility] Last Admin: 01/22/19 15:22 Dose: 600 mg Losartan Potassium (Cozaar -) 100 mg PO DAILY [facility] Last Admin: 01/22/19 11:44 Dose: 100 mg Nifedipine (Procardia Xl -) 90 mg PO DAILY [facility] Last Admin: 01/22/19 11:45 Dose: 90 mg Pantoprazole Sodium (Protonix -) 40 mg PO DAILY [facility] Last Admin: 01/22/19 11:44 Dose: 40 mg Phenytoin Sodium (Dilantin -) 200 mg PO BID [facility] Last Admin: 01/22/19 11:44 Dose: 200 mg Spironolactone (Aldactone -) 50 mg PO DAILY [facility] Last Admin: 01/22/19 11:44 Dose: 50 mg - Objective Vital Signs: Vital Signs Temperature 98.8 F 01/22/19 17:30 Pulse Rate 92 H 01/22/19 17:30 Respiratory Rate 20 01/22/19 17:30 Blood Pressure 134/104 H 01/22/19 17:30 O2 Sat by Pulse Oximetry (%) 93 L 01/22/19 09:00 Constitutional: Yes: No Distress HENT: Yes: Atraumatic Neck: Yes: Supple Cardiovascular: Yes: Regular Rate and Rhythm Respiratory: Yes: CTA Bilaterally Gastrointestinal: Yes: Normal Bowel Sounds Extremities: Yes: WNL Edema: No Peripheral Pulses WNL: Yes Neurological: Yes: Alert, Oriented Labs: CBC, BMP 01/22/19 09:45 01/22/19 09:45 INR, PTT INR 1.00 (0.83-1.09) 01/14/19 13:50 Problem List - Problems (1) HTN (hypertension) Code(s): I10 - ESSENTIAL (PRIMARY) HYPERTENSION Qualifiers: Hypertension type: essential hypertension Qualified Code(s): I10 - Essential (primary) hypertension (2) Hyperkalemia Assessment/Plan: got HD monitor Code(s): E87.5 - HYPERKALEMIA (3) Renal failure Assessment/Plan: ON HD Code(s): N19 - UNSPECIFIED KIDNEY FAILURE Qualifiers: Renal failure chronicity: unspecified chronicity Qualified Code(s): N19 - Unspecified kidney failure (4) Seizure disorder Code(s): G40.909 - EPILEPSY, UNSP, NOT INTRACTABLE, WITHOUT STATUS EPILEPTICUS (5) Anemia Assessment/Plan: stable s/p blood transfusion Code(s): D64.9 - ANEMIA, UNSPECIFIED Qualifiers: Anemia type: unspecified type Qualified Code(s): D64.9 - Anemia, unspecified (6) Acute on chronic diastolic CHF (congestive heart failure) Code(s): I50.33 - ACUTE ON CHRONIC DIASTOLIC (CONGESTIVE) HEART FAILURE (7) Hypercholesterolemia Code(s): E78.00 - PURE HYPERCHOLESTEROLEMIA, UNSPECIFIED (8) Seizures Code(s): R56.9 - UNSPECIFIED CONVULSIONS (9) Sepsis Assessment/Plan: on abx for vre cxs pending Code(s): A41.9 - SEPSIS, UNSPECIFIED ORGANISM
[2019-01-22] MEDS: ATORVASTATIN CA 40 MG TABLET (FP) PO SCH (22:58)
[2019-01-23] MEDS: LABETALOL HCL 200 MG TABLET (FP) PO SCH (06:41)
[2019-01-23] MEDS: hydrALAZINE HCL 25 MG TABLET (FP) PO SCH ×3 (06:45→22:40)
[2019-01-23] MEDS: AMOX TR/POT CLAV 500MG/125MG TABLETS (FP) PO SCH (08:00)
[2019-01-23] MEDS: NIFEdipine E.R. 90 MG TABLET (FP) PO SCH (09:30)
[2019-01-23] MEDS: DOCUSATE SODIUM 100 MG CAPSULE (FP) PO SCH ×2 (09:30→22:50)
[2019-01-23] MEDS: PANTOPRAZOLE 40 MG TABLET (FP) PO SCH (09:30)
[2019-01-23] MEDS: LOSARTAN POTASSIUM 50 MG TABLET (FP) PO SCH (09:30)
[2019-01-23] MEDS: PHENYTOIN NA EXTENDED 100 MG CAPSULE (FP) PO SCH ×2 (09:30→22:40)
[2019-01-23] MEDS: FERROUS SO4 325 MG TABLET (FP) PO SCH ×2 (09:30→18:23)
[2019-01-23] MEDS: CALCIUM ACETATE 667 MG CAPSULE (FP) PO SCH ×3 (09:31→18:24)
[2019-01-23] MEDS: LINEZOLID 600 MG TABLET (RESTRICTED TO ID) PO SCH (09:31)
[2019-01-23] MEDS: SPIRONOLACTONE 25 MG TABLET (FP) PO SCH (09:31)
--- NOTE | 2019-01-23 11:33 | ECHO ---
Name: TRAVISJOSUESA Exam:Adult Echocardiogram Study Date: 01/23/2019 08:05 AM Age: 58 yrs Reason For Study: Chest pain Height: 65 in Weight: 308 lb BSA: 2.4 m2 MMode/2D Measurements & Calculations IVSd: 1.4 cm Ao root diam: 3.3 cm LVIDd: 3.5 cm LA dimension: 4.1 cm LVIDs: 2.0 cm LVPWd: 1.1 cm EDV(Teich): 50.4 ml LVOT diam: 2.0 cm ESV(Teich): 13.2 ml LAV (MOD-bp): 66.6 ml Doppler Measurements & Calculations MV E max baldemar: 100.0 cm/sec Ao V2 max: 139.8 cm/sec MV A max baldemar: 77.1 cm/sec Ao max P.8 mmHg MV E/A: 1.3 MV dec time: 0.16 sec SUNNY(V,D): 3.2 cm2 LV V1 max P.8 mmHg TR max baldemar: 247.5 cm/sec LV V1 max: 139.7 cm/sec TR max P.5 mmHg PA V2 max: 97.7 cm/sec Med Peak E' Baldemar: 7.3 cm/sec PA max P.8 mmHg Med E/e': 13.7 Lat Peak E' Baldemar: 7.8 cm/sec Lat E/e': 12.8 Procedure A complete two-dimensional transthoracic echocardiogram was performed (2D, M-mode, Doppler and color flow Doppler). Left Ventricle The left ventricular size, thickness and function are normal. The left ventricular ejection fraction is normal. Ejection Fraction = 60-65%. The left ventricular wall motion is normal. Right Ventricle The right ventricle is normal in size and function. Atria The left atrium is mildly dilated. Right atrial size is normal. Mitral Valve There is no mitral regurgitation noted. Tricuspid Valve There is trace tricuspid regurgitation. Right ventricular systolic pressure is normal. Aortic Valve No hemodynamically significant valvular aortic stenosis. No aortic regurgitation is present. Pulmonic Valve There is no pulmonic valvular regurgitation. Great Vessels The aortic root is normal size. Pericardium/Pleura There is no pericardial effusion. Interpretation Summary The left ventricular size, thickness and function are normal The right ventricle is normal in size and function. The left atrium is mildly dilated. There is trace tricuspid regurgitation. MD Reese Jensen 01/23/2019 11:32 AM
--- NOTE | 2019-01-23 11:51 | PN ---
Progress Note, Physician Chief Complaint: Pt alert; denies chest pain or dyspnea.No headahce or dizziness. History of Present Illness: The patient is a 58 year old black female with a past medical history of HTN, copd chronic arthritis, and CVA (2017, 2018) anemia, CKD, diastolic chf, seizure disorder here today for evaluation of lower extremity edema. The patient reports that she has had 3 weeks of bilateral lower extremity edema which has been getting progressively worse. She also notes an intermittent productive cough of yellow sputum. today she was getting up from toilet and lost her balance, fell over. states she got tangled in pants trying to pull them up. Patient denies headache, lightheadedness. Denies fever, chills. Denies chest pain, shortness of breath. Denies nausea, vomiting, diarrhea, abdominal pain. Allergies: NKA Social history: Patient confirms tobacco use ( pack per day for the last 40 years). Denies illicit drugs or alcohol use. - Current Medication List Current Medications: Active Medications Acetaminophen (Tylenol -) 650 mg PO Q6H PRN PRN Reason: FEVER Last Admin: 01/15/19 21:36 Dose: 650 mg Atorvastatin Calcium (Lipitor -) 40 mg PO HS [facility] Last Admin: 01/22/19 22:58 Dose: 40 mg Calcium Acetate (Phoslo -) 1,334 mg PO TIDCM [facility] Last Admin: 01/23/19 09:31 Dose: 1,334 mg Docusate Sodium (Colace -) 100 mg PO BID [facility] Last Admin: 01/23/19 09:30 Dose: 100 mg Ferrous Sulfate (Feosol -) 325 mg PO BIDWM [facility] Last Admin: 01/23/19 09:30 Dose: 325 mg Guaifenesin (Robitussin -) 10 ml PO Q6H PRN PRN Reason: COUGH Last Admin: 01/15/19 11:31 Dose: 10 ml Hydralazine HCl (Apresoline -) 50 mg PO TID [facility] Last Admin: 01/23/19 06:45 Dose: 50 mg Sodium Chloride (Normal Saline -) 250 mls @ 3,000 mls/hr IV PRN PRN PRN Reason: Hypotension during Dialysis Stop: 01/22/19 18:48 Labetalol HCl (Normodyne -) 600 mg PO TID [facility] Last Admin: 01/23/19 06:41 Dose: 600 mg Linezolid (Zyvox (Restricted To Id) -) 600 mg PO BID [facility] Last Admin: 01/23/19 09:31 Dose: 600 mg Losartan Potassium (Cozaar -) 100 mg PO DAILY [facility] Last Admin: 01/23/19 09:30 Dose: 100 mg Nifedipine (Procardia Xl -) 90 mg PO DAILY [facility] Last Admin: 01/23/19 09:30 Dose: 90 mg Pantoprazole Sodium (Protonix -) 40 mg PO DAILY [facility] Last Admin: 01/23/19 09:30 Dose: 40 mg Phenytoin Sodium (Dilantin -) 200 mg PO BID [facility] Last Admin: 01/23/19 09:30 Dose: 200 mg Spironolactone (Aldactone -) 50 mg PO DAILY [facility] Last Admin: 01/23/19 09:31 Dose: 50 mg - Objective Vital Signs: Vital Signs Temperature 98.0 F 01/23/19 10:00 Pulse Rate 96 H 01/23/19 10:00 Respiratory Rate 16 01/23/19 10:00 Blood Pressure 150/80 01/23/19 10:00 O2 Sat by Pulse Oximetry (%) 93 L 01/22/19 21:00 Constitutional: Yes: Well Nourished Eyes: Yes: WNL HENT: Yes: WNL Neck: Yes: WNL Cardiovascular: Yes: Regular Rate and Rhythm, S1, S2, S4 Respiratory: Yes: Regular Gastrointestinal: Yes: Soft ...Rectal Exam: Yes: Deferred Genitourinary: No: Anuria Musculoskeletal: Yes: Muscle Weakness Extremities: Yes: Cool Edema: Yes Edema: LLE: Trace, RLE: Trace Peripheral Pulses WNL: Yes Integumentary: Yes: Venous Stasis Changes Neurological: Yes: Alert, Oriented Psychiatric: Yes: Alert, Oriented, Other Labs: CBC, BMP 01/22/19 09:45 01/22/19 09:45 INR, PTT INR 1.00 (0.83-1.09) 01/14/19 13:50 Abnormal Lab Results 01/22/19 09:45 BUN 19 H Creatinine 4.9 H Random Glucose 70 L Calcium 7.7 L Phosphorus 5.1 H - ....Imaging EKG: Image Reviewed (NSR; no acute STT changes) Problem List - Problems (1) Acute on chronic diastolic CHF (congestive heart failure) Assessment/Plan: On labetolol, nifedipine, losartan, hydralazine, and spironolactone. F/u BUN/Cr, electrolytes, daily wt, Is and Os. Code(s): I50.33 - ACUTE ON CHRONIC DIASTOLIC (CONGESTIVE) HEART FAILURE (2) Anemia Assessment/Plan: on iron supplements. Code(s): D64.9 - ANEMIA, UNSPECIFIED Qualifiers: Anemia type: unspecified type Qualified Code(s): D64.9 - Anemia, unspecified (3) Hypercholesterolemia Assessment/Plan: on atorvastatin; increase dose to keep LDL < 70 mg/dl. Code(s): E78.00 - PURE HYPERCHOLESTEROLEMIA, UNSPECIFIED (4) Cigarette nicotine dependence Code(s): F17.210 - NICOTINE DEPENDENCE, CIGARETTES, UNCOMPLICATED (5) [place] cardiac risk >20% in next 10 years Assessment/Plan: stress MIBI when stable, if not done recently. Pt's body weight/habitus may make this problematic. Code(s): Z91.89 - OTH PERSONAL RISK FACTORS, NOT ELSEWHERE CLASSIFIED (6) Renal failure Assessment/Plan: ECHO today: normal LVEF; normal wall motion. TNI < 0.02 x 3. EKG: NSR; no acute STT changes. From a cardiac perspective, pt is cleared to undergo Permacath insertion today. Code(s): N19 - UNSPECIFIED KIDNEY FAILURE Qualifiers: Renal failure chronicity: unspecified chronicity Qualified Code(s): N19 - Unspecified kidney failure (7) Hypertensive emergency Assessment/Plan: On labetolol, nifedipine, losartan, spironolactone, and hydrlazine. On hemodialysis. Code(s): I16.1 - HYPERTENSIVE EMERGENCY (8) Lower extremity edema Code(s): R60.0 - LOCALIZED EDEMA (9) Seizures Code(s): R56.9 - UNSPECIFIED CONVULSIONS (10) Osteoarthritis, knee Assessment/Plan: left knee OA Code(s): M17.10 - UNILATERAL PRIMARY OSTEOARTHRITIS, UNSPECIFIED KNEE
[2019-01-23 12:29] LABS: MAGNESIUM 1.9 mg/dL (1.8-2.4)
--- NOTE | 2019-01-23 12:33 | PN ---
Progress Note, Physician History of Present Illness: stable no issues - Current Medication List Current Medications: Active Medications Acetaminophen (Tylenol -) 650 mg PO Q6H PRN PRN Reason: FEVER Last Admin: 01/15/19 21:36 Dose: 650 mg Atorvastatin Calcium (Lipitor -) 40 mg PO HS [facility] Last Admin: 01/22/19 22:58 Dose: 40 mg Calcium Acetate (Phoslo -) 1,334 mg PO TIDCM [facility] Last Admin: 01/23/19 12:06 Dose: Not Given Docusate Sodium (Colace -) 100 mg PO BID [facility] Last Admin: 01/23/19 09:30 Dose: 100 mg Ferrous Sulfate (Feosol -) 325 mg PO BIDWM [facility] Last Admin: 01/23/19 09:30 Dose: 325 mg Guaifenesin (Robitussin -) 10 ml PO Q6H PRN PRN Reason: COUGH Last Admin: 01/15/19 11:31 Dose: 10 ml Hydralazine HCl (Apresoline -) 50 mg PO TID [facility] Last Admin: 01/23/19 06:45 Dose: 50 mg Sodium Chloride (Normal Saline -) 250 mls @ 3,000 mls/hr IV PRN PRN PRN Reason: Hypotension during Dialysis Stop: 01/22/19 18:48 Labetalol HCl (Normodyne -) 600 mg PO TID [facility] Last Admin: 01/23/19 06:41 Dose: 600 mg Linezolid (Zyvox (Restricted To Id) -) 600 mg PO BID [facility] Last Admin: 01/23/19 09:31 Dose: 600 mg Losartan Potassium (Cozaar -) 100 mg PO DAILY [facility] Last Admin: 01/23/19 09:30 Dose: 100 mg Nifedipine (Procardia Xl -) 90 mg PO DAILY [facility] Last Admin: 01/23/19 09:30 Dose: 90 mg Pantoprazole Sodium (Protonix -) 40 mg PO DAILY [facility] Last Admin: 01/23/19 09:30 Dose: 40 mg Phenytoin Sodium (Dilantin -) 200 mg PO BID [facility] Last Admin: 01/23/19 09:30 Dose: 200 mg Spironolactone (Aldactone -) 50 mg PO DAILY [facility] Last Admin: 01/23/19 09:31 Dose: 50 mg - Objective Vital Signs: Vital Signs Temperature 98.0 F 01/23/19 10:00 Pulse Rate 96 H 01/23/19 10:00 Respiratory Rate 16 01/23/19 10:00 Blood Pressure 150/80 01/23/19 10:00 O2 Sat by Pulse Oximetry (%) 93 L 01/22/19 21:00 Constitutional: Yes: No Distress, Calm Cardiovascular: Yes: Regular Rate and Rhythm Respiratory: Yes: Regular, CTA Bilaterally Gastrointestinal: Yes: Normal Bowel Sounds, Soft Musculoskeletal: Yes: WNL Extremities: Yes: WNL Neurological: Yes: Alert, Oriented Psychiatric: Yes: Alert, Oriented Labs: CBC, BMP 01/22/19 09:45 01/22/19 09:45 INR, PTT INR 1.00 (0.83-1.09) 01/14/19 13:50 Assessment/Plan patient looks sick and i am worried that she might take turn for the worse,labd have been ordered ,uncollected Problem List - Problems (1) Anemia Code(s): D64.9 - ANEMIA, UNSPECIFIED Qualifiers: Anemia type: unspecified type Qualified Code(s): D64.9 - Anemia, unspecified (2) Hyperkalemia Code(s): E87.5 - HYPERKALEMIA (3) Renal failure Code(s): N19 - UNSPECIFIED KIDNEY FAILURE Qualifiers: Renal failure chronicity: unspecified chronicity Qualified Code(s): N19 - Unspecified kidney failure sepsis fever plan continue current mgmt stopped abx monitor dialysis rest as per the team
[2019-01-23] MEDS ORDERED: LIDOCAINE HCL 1%, 10 MG/ML (20ML VIAL) ONE (12:46)
[2019-01-23] MEDS ORDERED: HEPARIN NA (PORCINE) 5,000 UNITS/ML 1ML VIAL ONE (12:46)
[2019-01-23] MEDS ORDERED: ONDANSETRON 4 MG/2 ML VIAL IVPUSH PRN (13:01)
[2019-01-23] MEDS ORDERED: MIDAZOLAM HCL 2 MG/2 ML SINGLE DOSE VIAL ONE (13:04)
[2019-01-23] MEDS ORDERED: METOPROLOL TARTRATE 5 MG/5 ML VIAL ONE (14:25)
[2019-01-23] MEDS ORDERED: ADENOSINE 6 MG/2 ML VIAL IVPUSH ONE (14:34)
--- NOTE | 2019-01-23 15:20 | PN ---
Progress Note (short form) - Note Progress Note: Vascular surgery Pt taken off the OR table prior to starting due to heart rate of greater than 150. Cardiology saw pt in PACU. Pt going to tele bed in ICU. Will cont to follow Juan rocha DO
--- NOTE | 2019-01-23 15:40 | EKG ---
Test Reason : Blood Pressure : / mmHG Vent. Rate : 140 BPM Atrial Rate : 163 BPM P-R Int : 000 ms QRS Dur : 076 ms QT Int : 334 ms P-R-T Axes : 000 021 -28 degrees QTc Int : 509 ms ATRIAL FIBRILLATION WITH RAPID VENTRICULAR RESPONSE WITH PREMATURE VENTRICULAR OR ABERRANTLY CONDUCTED COMPLEXES NONSPECIFIC ST ABNORMALITY ABNORMAL ECG WHEN COMPARED WITH ECG OF 21-JAN-2019 12:57, ATRIAL FIBRILLATION HAS REPLACED SINUS RHYTHM VENT. RATE HAS INCREASED BY [address] NOW DEPRESSED IN ANTERIOR LEADS Confirmed by REGLA MONROY MD ([id number]) on 01/23/2019 3:39:32 PM Referred By: Confirmed By:REGLA MONROY MD
--- NOTE | 2019-01-23 16:07 | PN ---
Progress Note, Physician History of Present Illness: Pt seen and examined at bedside. She did not get the permacath. She developed tachycardia in the 150 s and sent to ICU. - Current Medication List Current Medications: Active Medications Acetaminophen (Tylenol -) 650 mg PO Q6H PRN PRN Reason: FEVER Last Admin: 01/15/19 21:36 Dose: 650 mg Atorvastatin Calcium (Lipitor -) 40 mg PO HS [facility] Last Admin: 01/22/19 22:58 Dose: 40 mg Calcium Acetate (Phoslo -) 1,334 mg PO TIDCM [facility] Last Admin: 01/23/19 12:06 Dose: Not Given Docusate Sodium (Colace -) 100 mg PO BID [facility] Last Admin: 01/23/19 09:30 Dose: 100 mg Fentanyl (Sublimaze Injection -) 25 mcg IVPUSH [id number] PRN PRN Reason: PAIN-PACU ORDER X 4 DOSES ONLY Ferrous Sulfate (Feosol -) 325 mg PO BIDWM [facility] Last Admin: 01/23/19 09:30 Dose: 325 mg Guaifenesin (Robitussin -) 10 ml PO Q6H PRN PRN Reason: COUGH Last Admin: 01/15/19 11:31 Dose: 10 ml Hydralazine HCl (Apresoline -) 50 mg PO TID [facility] Last Admin: 01/23/19 06:45 Dose: 50 mg Sodium Chloride (Normal Saline -) 250 mls @ 3,000 mls/hr IV PRN PRN PRN Reason: Hypotension during Dialysis Stop: 01/22/19 18:48 Labetalol HCl (Normodyne -) 600 mg PO TID [facility] Last Admin: 01/23/19 06:41 Dose: 600 mg Linezolid (Zyvox (Restricted To Id) -) 600 mg PO BID [facility] Last Admin: 01/23/19 09:31 Dose: 600 mg Losartan Potassium (Cozaar -) 100 mg PO DAILY [facility] Last Admin: 01/23/19 09:30 Dose: 100 mg Nifedipine (Procardia Xl -) 90 mg PO DAILY [facility] Last Admin: 01/23/19 09:30 Dose: 90 mg Ondansetron HCl (Zofran Injection) 4 mg IVPUSH Q6H PRN PRN Reason: NAUSEA AND/OR VOMITING Pantoprazole Sodium (Protonix -) 40 mg PO DAILY [facility] Last Admin: 01/23/19 09:30 Dose: 40 mg Phenytoin Sodium (Dilantin -) 200 mg PO BID [facility] Last Admin: 01/23/19 09:30 Dose: 200 mg Spironolactone (Aldactone -) 50 mg PO DAILY [facility] Last Admin: 01/23/19 09:31 Dose: 50 mg - Objective Vital Signs: Vital Signs Temperature 97.6 F 01/23/19 14:03 Pulse Rate 139 H 01/23/19 14:15 Respiratory Rate 20 01/23/19 14:15 Blood Pressure 108/84 01/23/19 14:15 O2 Sat by Pulse Oximetry (%) 99 01/23/19 14:15 Labs: CBC, BMP 01/22/19 09:45 01/22/19 09:45 INR, PTT INR 1.00 (0.83-1.09) 01/14/19 13:50 Problem List - Problems (1) Anemia Code(s): D64.9 - ANEMIA, UNSPECIFIED Qualifiers: Anemia type: unspecified type Qualified Code(s): D64.9 - Anemia, unspecified (2) Hyperkalemia Code(s): E87.5 - HYPERKALEMIA (3) Renal failure Code(s): N19 - UNSPECIFIED KIDNEY FAILURE Qualifiers: Renal failure chronicity: unspecified chronicity Qualified Code(s): N19 - Unspecified kidney failure Assessment/Plan Current Medications Generic Name Dose Route Start Last Admin Trade Name Freq PRN Reason Stop Dose Admin Acetaminophen 650 mg 01/15/19 21:22 01/15/19 21:36 Tylenol - PO 650 mg Q6H PRN Administration FEVER Atorvastatin Calcium 40 mg 01/10/19 22:00 01/22/19 22:58 Lipitor - PO 40 mg HS ELIJAH Administration Calcium Acetate 1,334 mg 01/16/19 01:17 01/23/19 12:06 Phoslo - PO Not Given TIDCM [facility] Docusate Sodium 100 mg 01/10/19 22:00 01/23/19 09:30 Colace - PO 100 mg BID ELIJAH Administration Fentanyl 25 mcg 01/23/19 13:01 Sublimaze Injection - IVPUSH [id number] PRN PAIN-PACU ORDER X 4 DOSES ONLY Ferrous Sulfate 325 mg 01/11/19 08:00 01/23/19 09:30 Feosol - PO 325 mg BIDWM [facility]AH Administration Guaifenesin 10 ml 01/13/19 15:00 01/15/19 11:31 Robitussin - PO 10 ml Q6H PRN Administration COUGH Hydralazine HCl 50 mg 01/22/19 12:03 01/23/19 06:45 Apresoline - PO 50 mg TID [facility] Administration Sodium Chloride 250 mls @ 3,000 mls/hr 01/21/19 18:48 Normal Saline - IV 01/22/19 18:48 PRN PRN Hypotension during Dialysis Labetalol HCl 600 mg 01/22/19 12:03 01/23/19 06:41 Normodyne - PO 600 mg TID [facility] Administration Linezolid 600 mg 01/22/19 10:00 01/23/19 09:31 Zyvox (Restricted To Id) - PO 600 mg BID [facility] Administration Losartan Potassium 100 mg 01/18/19 10:00 01/23/19 09:30 Cozaar - PO 100 mg DAILY [facility] Administration Nifedipine 90 mg 01/20/19 12:30 01/23/19 09:30 Procardia Xl - PO 90 mg DAILY [facility] Administration Ondansetron HCl 4 mg 01/23/19 13:01 Zofran Injection IVPUSH Q6H PRN NAUSEA AND/OR VOMITING Pantoprazole Sodium 40 mg 01/11/19 10:00 01/23/19 09:30 Protonix - PO 40 mg DAILY [facility] Administration Phenytoin Sodium 200 mg 01/10/19 22:00 01/23/19 09:30 Dilantin - PO 200 mg BID [facility] Administration Spironolactone 50 mg 01/21/19 16:00 01/23/19 09:31 Aldactone - PO 50 mg DAILY [facility] Administration Impression 1. SOHAIL 2. lower ext edema 3. anemia 4. HTN 5. arthritis 6. nephrotic range proteinura 7. obesity 8. positive hep c virus on last admission 9. CKD 10. ESRD Plan - cardio eval - monitor in tele - will evaluate fo HD tomorrow - monitor bp - send placement info to [facility] once ready for d/c - renal diet
[2019-01-23] MEDS ORDERED: HEPARIN NA (PORCINE) 5,000 UNITS/ML 1ML VIAL IVPUSH PRN ×4 (17:11→18:24)
[2019-01-23] MEDS ORDERED: HEPARIN NA (PORCINE) 5,000 UNITS/ML 1ML VIAL IVPUSH ONE (17:11)
[2019-01-23] MEDS ORDERED: HEPARIN INFUSION - 25,000 UNITS/500 ML INFUS.BAG IVPB SCH (17:15)
[2019-01-23] MEDS ORDERED: METOPROLOL TARTRATE 50 MG TABLET (FP) PO ONE (18:09)
--- NOTE | 2019-01-23 18:16 | PN ---
Progress Note, Physician History of Present Illness: doing well - Current Medication List Current Medications: Active Medications Acetaminophen (Tylenol -) 650 mg PO Q6H PRN PRN Reason: FEVER Last Admin: 01/15/19 21:36 Dose: 650 mg Atorvastatin Calcium (Lipitor -) 40 mg PO HS [facility] Last Admin: 01/22/19 22:58 Dose: 40 mg Calcium Acetate (Phoslo -) 1,334 mg PO TIDCM [facility] Last Admin: 01/23/19 12:06 Dose: Not Given Docusate Sodium (Colace -) 100 mg PO BID [facility] Last Admin: 01/23/19 09:30 Dose: 100 mg Fentanyl (Sublimaze Injection -) 25 mcg IVPUSH [id number] PRN PRN Reason: PAIN-PACU ORDER X 4 DOSES ONLY Ferrous Sulfate (Feosol -) 325 mg PO BIDWM [facility] Last Admin: 01/23/19 09:30 Dose: 325 mg Guaifenesin (Robitussin -) 10 ml PO Q6H PRN PRN Reason: COUGH Last Admin: 01/15/19 11:31 Dose: 10 ml Heparin Sodium (Porcine) (Heparin -) 5,000 unit IVPUSH PRN PRN PRN Reason: APTT (SECONDS) <40 Heparin Sodium (Porcine) (Heparin -) 1,000 unit IVPUSH PRN PRN PRN Reason: APTT (SECONDS) 40-49 Hydralazine HCl (Apresoline -) 50 mg PO TID [facility] Last Admin: 01/23/19 06:45 Dose: 50 mg Sodium Chloride (Normal Saline -) 250 mls @ 3,000 mls/hr IV PRN PRN PRN Reason: Hypotension during Dialysis Stop: 01/22/19 18:48 Heparin Sodium/Dextrose (Heparin Infusion -) 25,000 units in 500 mls @ 20 mls/ hr IVPB TITR [facility]; Protocol Last Admin: 01/23/19 17:26 Dose: 1,000 units/hr, 20 mls/hr Linezolid (Zyvox (Restricted To Id) -) 600 mg PO BID [facility] Last Admin: 01/23/19 09:31 Dose: 600 mg Losartan Potassium (Cozaar -) 100 mg PO DAILY [facility] Last Admin: 01/23/19 09:30 Dose: 100 mg Metoprolol Tartrate (Lopressor -) 50 mg PO TID [facility] Nifedipine (Procardia Xl -) 90 mg PO DAILY [facility] Last Admin: 01/23/19 09:30 Dose: 90 mg Ondansetron HCl (Zofran Injection) 4 mg IVPUSH Q6H PRN PRN Reason: NAUSEA AND/OR VOMITING Pantoprazole Sodium (Protonix -) 40 mg PO DAILY [facility] Last Admin: 01/23/19 09:30 Dose: 40 mg Phenytoin Sodium (Dilantin -) 200 mg PO BID [facility] Last Admin: 01/23/19 09:30 Dose: 200 mg Spironolactone (Aldactone -) 50 mg PO DAILY [facility] Last Admin: 01/23/19 09:31 Dose: 50 mg - Objective Vital Signs: Vital Signs Temperature 97.6 F 01/23/19 15:30 Pulse Rate 143 H 01/23/19 17:29 Respiratory Rate 22 H 01/23/19 17:29 Blood Pressure 99/67 01/23/19 17:29 O2 Sat by Pulse Oximetry (%) 97 01/23/19 16:06 Constitutional: Yes: No Distress HENT: Yes: Atraumatic Neck: Yes: Supple Cardiovascular: Yes: Regular Rate and Rhythm Respiratory: Yes: CTA Bilaterally Gastrointestinal: Yes: Normal Bowel Sounds Extremities: Yes: WNL Neurological: Yes: Alert, Oriented Labs: CBC, BMP 01/22/19 09:45 01/22/19 09:45 INR, PTT INR 1.00 (0.83-1.09) 01/14/19 13:50 Problem List - Problems (1) HTN (hypertension) Code(s): I10 - ESSENTIAL (PRIMARY) HYPERTENSION Qualifiers: Hypertension type: essential hypertension Qualified Code(s): I10 - Essential (primary) hypertension (2) Hyperkalemia Assessment/Plan: got HD monitor Code(s): E87.5 - HYPERKALEMIA (3) Renal failure Assessment/Plan: ON HD Code(s): N19 - UNSPECIFIED KIDNEY FAILURE Qualifiers: Renal failure chronicity: unspecified chronicity Qualified Code(s): N19 - Unspecified kidney failure (4) Seizure disorder Code(s): G40.909 - EPILEPSY, UNSP, NOT INTRACTABLE, WITHOUT STATUS EPILEPTICUS (5) Anemia Assessment/Plan: stable s/p blood transfusion Code(s): D64.9 - ANEMIA, UNSPECIFIED Qualifiers: Anemia type: unspecified type Qualified Code(s): D64.9 - Anemia, unspecified (6) Acute on chronic diastolic CHF (congestive heart failure) Code(s): I50.33 - ACUTE ON CHRONIC DIASTOLIC (CONGESTIVE) HEART FAILURE (7) Hypercholesterolemia Code(s): E78.00 - PURE HYPERCHOLESTEROLEMIA, UNSPECIFIED (8) Seizures Code(s): R56.9 - UNSPECIFIED CONVULSIONS (9) Sepsis Assessment/Plan: on abx for vre cxs pending Code(s): A41.9 - SEPSIS, UNSPECIFIED ORGANISM
[2019-01-23] MEDS: HEPARIN INFUSION - 25,000 UNITS/500 ML INFUS.BAG IVPB SCH (18:42)
[2019-01-23 20:06] LABS: HEMATOCRIT 31.3 % (32.4-45.2); HEMOGLOBIN 10.4 GM/dL (10.7-15.3); MCH 28.5 pg (25.7-33.7); MCHC 33.1 g/dl (32.0-36.0); MEAN CELL VOLUME 86.1 fl (80-96); MEAN PLT VOLUME 6.9 fl (7.5-11.1); PLATELET COUNT 374 K/MM3 (134-434); RBC 3.64 M/mm3 (3.60-5.2); RDW 15.1 % (11.6-15.6)
[2019-01-23 20:55] LABS: CALCIUM 7.6 mg/dL (8.5-10.1); MAGNESIUM 1.8 mg/dL (1.8-2.4); POTASSIUM 3.2 mmol/L (3.5-5.1)
[2019-01-23] MEDS: ATORVASTATIN CA 40 MG TABLET (FP) PO SCH (22:40)
[2019-01-23] MEDS: METOPROLOL TARTRATE 50 MG TABLET (FP) PO SCH (22:41)
[2019-01-23] MEDS ORDERED: PT OWN MED DRAWER 7, Y5N ONE (22:45)
[2019-01-24] MEDS ORDERED: PT OWN MED DRAWER 7, Y5N ONE ×2 (01:38→09:13)
[2019-01-24] MEDS: LINEZOLID 600 MG TABLET (RESTRICTED TO ID) PO SCH ×3 (01:57→22:13)
[2019-01-24] MEDS: hydrALAZINE HCL 25 MG TABLET (FP) PO SCH ×3 (06:25→22:12)
[2019-01-24] MEDS: METOPROLOL TARTRATE 50 MG TABLET (FP) PO SCH ×3 (06:26→22:13)
[2019-01-24] MEDS: FERROUS SO4 325 MG TABLET (FP) PO SCH ×2 (07:54→16:48)
[2019-01-24] MEDS: CALCIUM ACETATE 667 MG CAPSULE (FP) PO SCH ×3 (07:54→16:48)
[2019-01-24] MEDS: LOSARTAN POTASSIUM 50 MG TABLET (FP) PO SCH (09:14)
[2019-01-24] MEDS: PHENYTOIN NA EXTENDED 100 MG CAPSULE (FP) PO SCH ×2 (09:14→22:13)
[2019-01-24] MEDS: SPIRONOLACTONE 25 MG TABLET (FP) PO SCH (09:15)
[2019-01-24] MEDS: PANTOPRAZOLE 40 MG TABLET (FP) PO SCH (09:15)
[2019-01-24] MEDS: DOCUSATE SODIUM 100 MG CAPSULE (FP) PO SCH ×2 (09:15→22:13)
--- NOTE | 2019-01-24 09:26 | PN ---
Progress Note, Physician Chief Complaint: Pt alert and oriented; no palpitations, dizziness, or chest pain. Slept well last night. History of Present Illness: The patient is a 58 year old black female with a past medical history of HTN, copd chronic arthritis, and CVA (2017, 2018) anemia, CKD, diastolic chf, seizure disorder here today for evaluation of lower extremity edema. The patient reports that she has had 3 weeks of bilateral lower extremity edema which has been getting progressively worse. She also notes an intermittent productive cough of yellow sputum. today she was getting up from toilet and lost her balance, fell over. states she got tangled in pants trying to pull them up. Patient denies headache, lightheadedness. Denies fever, chills. Denies chest pain, shortness of breath. Denies nausea, vomiting, diarrhea, abdominal pain. Allergies: NKA Social history: Patient confirms tobacco use ( pack per day for the last 40 years). Denies illicit drugs or alcohol use. - Current Medication List Current Medications: Active Medications Acetaminophen (Tylenol -) 650 mg PO Q6H PRN PRN Reason: FEVER Last Admin: 01/15/19 21:36 Dose: 650 mg Atorvastatin Calcium (Lipitor -) 40 mg PO HS [facility] Last Admin: 01/23/19 22:40 Dose: 40 mg Calcium Acetate (Phoslo -) 1,334 mg PO TIDCM [facility] Last Admin: 01/24/19 07:54 Dose: 1,334 mg Docusate Sodium (Colace -) 100 mg PO BID [facility] Last Admin: 01/24/19 09:15 Dose: 100 mg Fentanyl (Sublimaze Injection -) 25 mcg IVPUSH [id number] PRN PRN Reason: PAIN-PACU ORDER X 4 DOSES ONLY Ferrous Sulfate (Feosol -) 325 mg PO BIDWM [facility] Last Admin: 01/24/19 07:54 Dose: 325 mg Guaifenesin (Robitussin -) 10 ml PO Q6H PRN PRN Reason: COUGH Last Admin: 01/15/19 11:31 Dose: 10 ml Heparin Sodium (Porcine) (Heparin -) 1,000 unit IVPUSH PRN PRN PRN Reason: Heparin Heparin Sodium (Porcine) (Heparin -) 5,000 unit IVPUSH PRN PRN PRN Reason: Heparin Hydralazine HCl (Apresoline -) 50 mg PO TID [facility] Last Admin: 01/24/19 06:25 Dose: 50 mg Sodium Chloride (Normal Saline -) 250 mls @ 3,000 mls/hr IV PRN PRN PRN Reason: Hypotension during Dialysis Stop: 01/22/19 18:48 Heparin Sodium/Dextrose (Heparin Infusion -) 25,000 units in 500 mls @ 20 mls/ hr IVPB TITR [facility]; Protocol Last Admin: 01/23/19 18:42 Dose: Not Given Linezolid (Zyvox (Restricted To Id) -) 600 mg PO BID [facility] Last Admin: 01/24/19 09:15 Dose: 600 mg Losartan Potassium (Cozaar -) 100 mg PO DAILY [facility] Last Admin: 01/24/19 09:14 Dose: 100 mg Metoprolol Tartrate (Lopressor -) 50 mg PO TID [facility] Last Admin: 01/24/19 06:26 Dose: 50 mg Nifedipine (Procardia Xl -) 90 mg PO DAILY [facility] Last Admin: 01/23/19 09:30 Dose: 90 mg Ondansetron HCl (Zofran Injection) 4 mg IVPUSH Q6H PRN PRN Reason: NAUSEA AND/OR VOMITING Pantoprazole Sodium (Protonix -) 40 mg PO DAILY [facility] Last Admin: 01/24/19 09:15 Dose: 40 mg Phenytoin Sodium (Dilantin -) 200 mg PO BID [facility] Last Admin: 01/24/19 09:14 Dose: 200 mg Spironolactone (Aldactone -) 50 mg PO DAILY [facility] Last Admin: 01/24/19 09:15 Dose: 50 mg - Objective Vital Signs: Vital Signs Temperature 98.0 F 01/24/19 07:43 Pulse Rate 80 01/24/19 07:43 Respiratory Rate 22 H 01/24/19 07:43 Blood Pressure 157/103 H 01/24/19 07:43 O2 Sat by Pulse Oximetry (%) 97 01/24/19 07:43 Constitutional: Yes: Calm, Obese Eyes: Yes: WNL HENT: Yes: WNL Neck: Yes: Other (right sided Permacath) Cardiovascular: Yes: Regular Rate and Rhythm, S1, S2, S4 Respiratory: Yes: WNL Gastrointestinal: Yes: Soft, Abdomen, Obese ...Rectal Exam: Yes: Deferred Genitourinary: No: Anuria Breast(s): Yes: WNL Musculoskeletal: Yes: Muscle Weakness Extremities: Yes: Cool Edema: Yes Edema: LLE: Trace, RLE: Trace Peripheral Pulses WNL: Yes Integumentary: Yes: WNL Neurological: Yes: Alert, Oriented, Weakness Psychiatric: Yes: Alert, Oriented Labs: CBC, BMP 01/23/19 19:49 01/23/19 19:49 INR, PTT INR 1.00 (0.83-1.09) 01/14/19 13:50 Abnormal Lab Results 01/24/19 01/24/19 01/24/19 08:15 12:32 12:32 WBC 11.5 H Hgb 10.3 L Hct 31.9 L MPV 6.5 L Absolute Neuts (auto) 8.5 H PTT (Actin FS) 58.2 H Potassium 3.2 L Creatinine 4.5 H Random Glucose 73 L Calcium 7.8 L Problem List - Problems (1) Acute on chronic diastolic CHF (congestive heart failure) Assessment/Plan: On labetolol, nifedipine, losartan, hydralazine, and spironolactone. F/u BUN/Cr, electrolytes, daily wt, Is and Os. Code(s): I50.33 - ACUTE ON CHRONIC DIASTOLIC (CONGESTIVE) HEART FAILURE (2) Anemia Assessment/Plan: on iron supplements. Now on IV heparin (PAF). F/u stool quaiac; f/u Hb. Code(s): D64.9 - ANEMIA, UNSPECIFIED Qualifiers: Anemia type: unspecified type Qualified Code(s): D64.9 - Anemia, unspecified (3) Hypercholesterolemia Assessment/Plan: on atorvastatin; increase dose to keep LDL < 70 mg/dl. Code(s): E78.00 - PURE HYPERCHOLESTEROLEMIA, UNSPECIFIED (4) Cigarette nicotine dependence Code(s): F17.210 - NICOTINE DEPENDENCE, CIGARETTES, UNCOMPLICATED (5) [place] cardiac risk >20% in next 10 years Assessment/Plan: stress MIBI when stable, if not done recently. Pt's body weight/habitus may make this problematic. Code(s): Z91.89 - OTH PERSONAL RISK FACTORS, NOT ELSEWHERE CLASSIFIED (6) Renal failure Assessment/Plan: ECHO today: normal LVEF; normal wall motion. TNI < 0.02 x 3. EKG: NSR; no acute STT changes. From a cardiac perspective, pt was cleared to undergo surgery for AV fistula ( canceled due to development of PAF prior to surgery, after being given Versed). Code(s): N19 - UNSPECIFIED KIDNEY FAILURE Qualifiers: Renal failure chronicity: unspecified chronicity Qualified Code(s): N19 - Unspecified kidney failure (7) Hypertensive emergency Assessment/Plan: On labetolol, nifedipine, losartan, spironolactone, and hydralazine. On hemodialysis. Changed from labetolol to metoprolol due to development of AF with RVR. Code(s): I16.1 - HYPERTENSIVE EMERGENCY (8) Lower extremity edema Code(s): R60.0 - LOCALIZED EDEMA (9) Seizures Code(s): R56.9 - UNSPECIFIED CONVULSIONS (10) Osteoarthritis, knee Assessment/Plan: left knee OA Code(s): M17.10 - UNILATERAL PRIMARY OSTEOARTHRITIS, UNSPECIFIED KNEE (11) PAF (paroxysmal atrial fibrillation) Assessment/Plan: Pt developed PAF yesterday after begin given Versed; surgery for AV fistula was cancelled. ECHO: normal LVEF; mild LAE. (Pt denies hx of AF, but says, a few nights ago, for the first time, she had sudden onset of palpitations that lasted for hours; she did not inform staff at the time). Labetolol was changed to metoprolol tartrate 50 mg tid; she has now converted to NSR. Continue IV heparin for anticoagulation (if surgery is postponed for several days, can convert to DOAC). Keep K+ 4-4.5, Mg 2-2.4, PO4 2.5-4.9. Code(s): I48.0 - PAROXYSMAL ATRIAL FIBRILLATION (12) Hypokalemia Assessment/Plan: see under "PAF". Code(s): E87.6 - HYPOKALEMIA
[2019-01-24] MEDS: NIFEdipine E.R. 90 MG TABLET (FP) PO SCH (09:29)
--- NOTE | 2019-01-24 11:49 | PN ---
Progress Note, Physician History of Present Illness: Pt seen and examined at bedside. She is awake and alert. She had chest pain last night. She also had chest pain this morning. She is on a heparin drip. - Current Medication List Current Medications: Active Medications Acetaminophen (Tylenol -) 650 mg PO Q6H PRN PRN Reason: FEVER Last Admin: 01/15/19 21:36 Dose: 650 mg Atorvastatin Calcium (Lipitor -) 40 mg PO HS [facility] Last Admin: 01/23/19 22:40 Dose: 40 mg Calcium Acetate (Phoslo -) 1,334 mg PO TIDCM [facility] Last Admin: 01/24/19 07:54 Dose: 1,334 mg Docusate Sodium (Colace -) 100 mg PO BID [facility] Last Admin: 01/24/19 09:15 Dose: 100 mg Fentanyl (Sublimaze Injection -) 25 mcg IVPUSH [id number] PRN PRN Reason: PAIN-PACU ORDER X 4 DOSES ONLY Ferrous Sulfate (Feosol -) 325 mg PO BIDWM [facility] Last Admin: 01/24/19 07:54 Dose: 325 mg Guaifenesin (Robitussin -) 10 ml PO Q6H PRN PRN Reason: COUGH Last Admin: 01/15/19 11:31 Dose: 10 ml Heparin Sodium (Porcine) (Heparin -) 1,000 unit IVPUSH PRN PRN PRN Reason: Heparin Heparin Sodium (Porcine) (Heparin -) 5,000 unit IVPUSH PRN PRN PRN Reason: Heparin Hydralazine HCl (Apresoline -) 50 mg PO TID [facility] Last Admin: 01/24/19 06:25 Dose: 50 mg Sodium Chloride (Normal Saline -) 250 mls @ 3,000 mls/hr IV PRN PRN PRN Reason: Hypotension during Dialysis Stop: 01/22/19 18:48 Heparin Sodium/Dextrose (Heparin Infusion -) 25,000 units in 500 mls @ 20 mls/ hr IVPB TITR [facility]; Protocol Last Admin: 01/23/19 18:42 Dose: Not Given Linezolid (Zyvox (Restricted To Id) -) 600 mg PO BID [facility] Last Admin: 01/24/19 09:15 Dose: 600 mg Losartan Potassium (Cozaar -) 100 mg PO DAILY [facility] Last Admin: 01/24/19 09:14 Dose: 100 mg Metoprolol Tartrate (Lopressor -) 50 mg PO TID [facility] Last Admin: 01/24/19 06:26 Dose: 50 mg Nifedipine (Procardia Xl -) 90 mg PO DAILY [facility] Last Admin: 01/24/19 09:29 Dose: 90 mg Ondansetron HCl (Zofran Injection) 4 mg IVPUSH Q6H PRN PRN Reason: NAUSEA AND/OR VOMITING Pantoprazole Sodium (Protonix -) 40 mg PO DAILY [facility] Last Admin: 01/24/19 09:15 Dose: 40 mg Phenytoin Sodium (Dilantin -) 200 mg PO BID [facility] Last Admin: 01/24/19 09:14 Dose: 200 mg Spironolactone (Aldactone -) 50 mg PO DAILY [facility] Last Admin: 01/24/19 09:15 Dose: 50 mg - Objective Vital Signs: Vital Signs Temperature 98.0 F 01/24/19 07:43 Pulse Rate 80 01/24/19 07:43 Respiratory Rate 22 H 01/24/19 07:43 Blood Pressure 157/103 H 01/24/19 07:43 O2 Sat by Pulse Oximetry (%) 97 01/24/19 07:43 Constitutional: Yes: Calm Eyes: Yes: Conjunctiva Clear HENT: Yes: Atraumatic Neck: Yes: Supple Cardiovascular: Yes: S1, S2 Respiratory: Yes: CTA Bilaterally Gastrointestinal: Yes: Soft Genitourinary: Yes: WNL Musculoskeletal: Yes: WNL Edema: Yes Edema: LLE: Trace, RLE: Trace Neurological: Yes: Oriented Psychiatric: Yes: Oriented Labs: CBC, BMP 01/23/19 19:49 01/23/19 19:49 INR, PTT INR 1.00 (0.83-1.09) 01/14/19 13:50 Problem List - Problems (1) Anemia Code(s): D64.9 - ANEMIA, UNSPECIFIED Qualifiers: Anemia type: unspecified type Qualified Code(s): D64.9 - Anemia, unspecified (2) Hyperkalemia Code(s): E87.5 - HYPERKALEMIA (3) Renal failure Code(s): N19 - UNSPECIFIED KIDNEY FAILURE Qualifiers: Renal failure chronicity: unspecified chronicity Qualified Code(s): N19 - Unspecified kidney failure Assessment/Plan Current Medications Generic Name Dose Route Start Last Admin Trade Name Freq PRN Reason Stop Dose Admin Acetaminophen 650 mg 01/15/19 21:22 01/15/19 21:36 Tylenol - PO 650 mg Q6H PRN Administration FEVER Atorvastatin Calcium 40 mg 01/10/19 22:00 01/23/19 22:40 Lipitor - PO 40 mg HS [facility] Administration Calcium Acetate 1,334 mg 01/16/19 01:17 01/24/19 07:54 Phoslo - PO 1,334 mg TIDCM [facility] Administration Docusate Sodium 100 mg 01/10/19 22:00 01/24/19 09:15 Colace - PO 100 mg BID [facility] Administration Fentanyl 25 mcg 01/23/19 13:01 Sublimaze Injection - IVPUSH [id number] PRN PAIN-PACU ORDER X 4 DOSES ONLY Ferrous Sulfate 325 mg 01/11/19 08:00 01/24/19 07:54 Feosol - PO 325 mg BIDWM [facility] Administration Guaifenesin 10 ml 01/13/19 15:00 01/15/19 11:31 Robitussin - PO 10 ml Q6H PRN Administration COUGH Heparin Sodium (Porcine) 1,000 unit 01/23/19 18:24 Heparin - IVPUSH PRN PRN Heparin Heparin Sodium (Porcine) 5,000 unit 01/23/19 18:24 Heparin - IVPUSH PRN PRN Heparin Hydralazine HCl 50 mg 01/22/19 12:03 01/24/19 06:25 Apresoline - PO 50 mg TID [facility] Administration Sodium Chloride 250 mls @ 3,000 mls/hr 01/21/19 18:48 Normal Saline - IV 01/22/19 18:48 PRN PRN Hypotension during Dialysis Heparin Sodium/Dextrose 25,000 units in 500 mls @ 20 mls/hr 01/23/19 18:30 18:42 Heparin Infusion - IVPB Not Given TITR [facility] Protocol 1,000 UNITS/HR Linezolid 600 mg 01/22/19 10:00 01/24/19 09:15 Zyvox (Restricted To Id) - PO 600 mg BID [facility] Administration Losartan Potassium 100 mg 01/18/19 10:00 01/24/19 09:14 Cozaar - PO 100 mg DAILY [facility] Administration Metoprolol Tartrate 50 mg 01/23/19 22:00 01/24/19 06:26 Lopressor - PO 50 mg TID [facility] Administration Nifedipine 90 mg 01/20/19 12:30 01/24/19 09:29 Procardia Xl - PO 90 mg DAILY [facility] Administration Ondansetron HCl 4 mg 01/23/19 13:01 Zofran Injection IVPUSH Q6H PRN NAUSEA AND/OR VOMITING Pantoprazole Sodium 40 mg 01/11/19 10:00 01/24/19 09:15 Protonix - PO 40 mg DAILY [facility] Administration Phenytoin Sodium 200 mg 01/10/19 22:00 01/24/19 09:14 Dilantin - PO 200 mg BID [facility] Administration Spironolactone 50 mg 01/21/19 16:00 01/24/19 09:15 Aldactone - PO 50 mg DAILY [facility] Administration Impression 1. SOHAIL 2. lower ext edema 3. anemia 4. HTN 5. arthritis 6. nephrotic range proteinura 7. obesity 8. positive hep c virus on last admission 9. CKD 10. ESRD Plan - check labs if she agrees - will hold off hd today as she is having chest pain - will evaluate for HD tomorrow - monitor bp after am meds - access not placed yesterday, she has shiley - renal diet
--- NOTE | 2019-01-24 12:26 | EKG ---
Test Reason : Blood Pressure : / mmHG Vent. Rate : 072 BPM Atrial Rate : 072 BPM P-R Int : 142 ms QRS Dur : 082 ms QT Int : 462 ms P-R-T Axes : 047 015 035 degrees QTc Int : 505 ms NORMAL SINUS RHYTHM PROLONGED QT ABNORMAL ECG WHEN COMPARED WITH ECG OF 23-JAN-2019 14:16, SINUS RHYTHM HAS REPLACED ATRIAL FIBRILLATION VENT. RATE HAS DECREASED BY 68 BPM Confirmed by TON PINEDA, THAO ([id number] on 01/24/2019 12:25:58 PM Referred By: Confirmed By:THAO CAMILO MD
[2019-01-24 12:46] LABS: BASO % 0.4 % (0-2.0); EOS % 3.1 % (0-4.5); HEMATOCRIT 31.9 % (32.4-45.2); HEMOGLOBIN 10.3 GM/dL (10.7-15.3); MCH 27.6 pg (25.7-33.7); MCHC 32.2 g/dl (32.0-36.0); MEAN CELL VOLUME 85.9 fl (80-96); MEAN PLT VOLUME 6.5 fl (7.5-11.1); MONO % 6.3 % (3.8-10.2); NEUT % 74.2 % (42.8-82.8); RBC 3.72 M/mm3 (3.60-5.2); RDW 15.2 % (11.6-15.6); WHITE BLOOD COUNT 11.5 K/mm3 (4.0-10.0)
--- NOTE | 2019-01-24 12:52 | PN ---
Progress Note, Physician - Current Medication List Current Medications: Active Medications Acetaminophen (Tylenol -) 650 mg PO Q6H PRN PRN Reason: FEVER Last Admin: 01/15/19 21:36 Dose: 650 mg Atorvastatin Calcium (Lipitor -) 40 mg PO HS [facility] Last Admin: 01/23/19 22:40 Dose: 40 mg Calcium Acetate (Phoslo -) 1,334 mg PO TIDCM [facility] Last Admin: 01/24/19 07:54 Dose: 1,334 mg Docusate Sodium (Colace -) 100 mg PO BID [facility] Last Admin: 01/24/19 09:15 Dose: 100 mg Fentanyl (Sublimaze Injection -) 25 mcg IVPUSH [id number] PRN PRN Reason: PAIN-PACU ORDER X 4 DOSES ONLY Ferrous Sulfate (Feosol -) 325 mg PO BIDWM [facility] Last Admin: 01/24/19 07:54 Dose: 325 mg Guaifenesin (Robitussin -) 10 ml PO Q6H PRN PRN Reason: COUGH Last Admin: 01/15/19 11:31 Dose: 10 ml Heparin Sodium (Porcine) (Heparin -) 1,000 unit IVPUSH PRN PRN PRN Reason: Heparin Heparin Sodium (Porcine) (Heparin -) 5,000 unit IVPUSH PRN PRN PRN Reason: Heparin Hydralazine HCl (Apresoline -) 50 mg PO TID [facility] Last Admin: 01/24/19 06:25 Dose: 50 mg Sodium Chloride (Normal Saline -) 250 mls @ 3,000 mls/hr IV PRN PRN PRN Reason: Hypotension during Dialysis Stop: 01/22/19 18:48 Heparin Sodium/Dextrose (Heparin Infusion -) 25,000 units in 500 mls @ 20 mls/ hr IVPB TITR [facility]; Protocol Last Admin: 01/23/19 18:42 Dose: Not Given Linezolid (Zyvox (Restricted To Id) -) 600 mg PO BID [facility] Last Admin: 01/24/19 09:15 Dose: 600 mg Losartan Potassium (Cozaar -) 100 mg PO DAILY [facility] Last Admin: 01/24/19 09:14 Dose: 100 mg Metoprolol Tartrate (Lopressor -) 50 mg PO TID [facility] Last Admin: 01/24/19 06:26 Dose: 50 mg Nifedipine (Procardia Xl -) 90 mg PO DAILY [facility] Last Admin: 01/24/19 09:29 Dose: 90 mg Ondansetron HCl (Zofran Injection) 4 mg IVPUSH Q6H PRN PRN Reason: NAUSEA AND/OR VOMITING Pantoprazole Sodium (Protonix -) 40 mg PO DAILY [facility] Last Admin: 01/24/19 09:15 Dose: 40 mg Phenytoin Sodium (Dilantin -) 200 mg PO BID [facility] Last Admin: 01/24/19 09:14 Dose: 200 mg Spironolactone (Aldactone -) 50 mg PO DAILY [facility] Last Admin: 01/24/19 09:15 Dose: 50 mg - Objective Vital Signs: Vital Signs Temperature 98.0 F 01/24/19 07:43 Pulse Rate 81 01/24/19 11:36 Respiratory Rate 19 01/24/19 11:36 Blood Pressure 170/101 H 01/24/19 11:36 O2 Sat by Pulse Oximetry (%) 97 01/24/19 07:43 Labs: CBC, BMP 01/24/19 12:32 INR, PTT INR 1.00 (0.83-1.09) 01/14/19 13:50
[2019-01-24 13:21] LABS: CALCIUM 7.8 mg/dL (8.5-10.1); CREATININE 4.5 mg/dL (0.55-1.3); POTASSIUM 3.2 mmol/L (3.5-5.1)
[2019-01-24] MEDS ORDERED: POTASSIUM CHLORIDE TABS 20 MEQ TABLET.ER (FP) PO ONE (13:45)
[2019-01-24 13:53] LABS: PLATELET COUNT 389 K/MM3 (134-434)
--- NOTE | 2019-01-24 16:18 | PN ---
Progress Note, Physician - Current Medication List Current Medications: Active Medications Acetaminophen (Tylenol -) 650 mg PO Q6H PRN PRN Reason: FEVER Last Admin: 01/15/19 21:36 Dose: 650 mg Atorvastatin Calcium (Lipitor -) 40 mg PO HS [facility] Last Admin: 01/23/19 22:40 Dose: 40 mg Calcium Acetate (Phoslo -) 1,334 mg PO TIDCM [facility] Last Admin: 01/24/19 13:02 Dose: 1,334 mg Docusate Sodium (Colace -) 100 mg PO BID [facility] Last Admin: 01/24/19 09:15 Dose: 100 mg Fentanyl (Sublimaze Injection -) 25 mcg IVPUSH [id number] PRN PRN Reason: PAIN-PACU ORDER X 4 DOSES ONLY Ferrous Sulfate (Feosol -) 325 mg PO BIDWM [facility] Last Admin: 01/24/19 07:54 Dose: 325 mg Guaifenesin (Robitussin -) 10 ml PO Q6H PRN PRN Reason: COUGH Last Admin: 01/15/19 11:31 Dose: 10 ml Heparin Sodium (Porcine) (Heparin -) 1,000 unit IVPUSH PRN PRN PRN Reason: Heparin Heparin Sodium (Porcine) (Heparin -) 5,000 unit IVPUSH PRN PRN PRN Reason: Heparin Hydralazine HCl (Apresoline -) 50 mg PO TID [facility] Last Admin: 01/24/19 13:18 Dose: 50 mg Sodium Chloride (Normal Saline -) 250 mls @ 3,000 mls/hr IV PRN PRN PRN Reason: Hypotension during Dialysis Stop: 01/22/19 18:48 Heparin Sodium/Dextrose (Heparin Infusion -) 25,000 units in 500 mls @ 20 mls/ hr IVPB TITR [facility]; Protocol Last Admin: 01/23/19 18:42 Dose: Not Given Linezolid (Zyvox (Restricted To Id) -) 600 mg PO BID [facility] Last Admin: 01/24/19 09:15 Dose: 600 mg Losartan Potassium (Cozaar -) 100 mg PO DAILY [facility] Last Admin: 01/24/19 09:14 Dose: 100 mg Metoprolol Tartrate (Lopressor -) 50 mg PO TID [facility] Last Admin: 01/24/19 13:18 Dose: 50 mg Nifedipine (Procardia Xl -) 90 mg PO DAILY [facility] Last Admin: 01/24/19 09:29 Dose: 90 mg Ondansetron HCl (Zofran Injection) 4 mg IVPUSH Q6H PRN PRN Reason: NAUSEA AND/OR VOMITING Pantoprazole Sodium (Protonix -) 40 mg PO DAILY [facility] Last Admin: 01/24/19 09:15 Dose: 40 mg Phenytoin Sodium (Dilantin -) 200 mg PO BID [facility] Last Admin: 01/24/19 09:14 Dose: 200 mg Spironolactone (Aldactone -) 50 mg PO DAILY [facility] Last Admin: 01/24/19 09:15 Dose: 50 mg - Objective Vital Signs: Vital Signs Temperature 98.0 F 01/24/19 07:43 Pulse Rate 85 01/24/19 15:47 Respiratory Rate 16 01/24/19 15:47 Blood Pressure 155/99 01/24/19 15:47 O2 Sat by Pulse Oximetry (%) 97 01/24/19 07:43 Constitutional: Yes: No Distress HENT: Yes: Atraumatic Neck: Yes: Supple Cardiovascular: Yes: Regular Rate and Rhythm Respiratory: Yes: Regular Gastrointestinal: Yes: Normal Bowel Sounds Extremities: Yes: WNL Labs: CBC, BMP 01/24/19 12:32 01/24/19 12:32 INR, PTT INR 1.00 (0.83-1.09) 01/14/19 13:50 Problem List - Problems (1) Hyperkalemia Assessment/Plan: no k is low monitor Code(s): E87.5 - HYPERKALEMIA (2) Renal failure Assessment/Plan: ON HD for perma cath when stale Code(s): N19 - UNSPECIFIED KIDNEY FAILURE Qualifiers: Renal failure chronicity: unspecified chronicity Qualified Code(s): N19 - Unspecified kidney failure (3) Seizure disorder Code(s): G40.909 - EPILEPSY, UNSP, NOT INTRACTABLE, WITHOUT STATUS EPILEPTICUS (4) Anemia Assessment/Plan: stable s/p blood transfusion Code(s): D64.9 - ANEMIA, UNSPECIFIED Qualifiers: Anemia type: unspecified type Qualified Code(s): D64.9 - Anemia, unspecified (5) Acute on chronic diastolic CHF (congestive heart failure) Code(s): I50.33 - ACUTE ON CHRONIC DIASTOLIC (CONGESTIVE) HEART FAILURE (6) Hypercholesterolemia Code(s): E78.00 - PURE HYPERCHOLESTEROLEMIA, UNSPECIFIED (7) Seizures Code(s): R56.9 - UNSPECIFIED CONVULSIONS (8) Sepsis Assessment/Plan: on abx for vre Code(s): A41.9 - SEPSIS, UNSPECIFIED ORGANISM
[2019-01-24] MEDS ORDERED: MAGNESIUM OXIDE 400 MG TABLET (FP) PO ONE (16:28)
[2019-01-24] MEDS: HEPARIN INFUSION - 25,000 UNITS/500 ML INFUS.BAG IVPB SCH ×2 (16:51→21:09)
[2019-01-24] MEDS: ATORVASTATIN CA 40 MG TABLET (FP) PO SCH (22:13)
[2019-01-25] MEDS: hydrALAZINE HCL 25 MG TABLET (FP) PO SCH ×4 (05:31→21:20)
[2019-01-25] MEDS: METOPROLOL TARTRATE 50 MG TABLET (FP) PO SCH ×3 (05:31→21:15)
[2019-01-25 06:38] LABS: BASO % 1.6 % (0-2.0); EOS % 3.1 % (0-4.5); HEMATOCRIT 27.7 % (32.4-45.2); HEMOGLOBIN 9.8 GM/dL (10.7-15.3); LYMPH % 17.1 % (8-40); MCHC 35.3 g/dl (32.0-36.0); MEAN CELL VOLUME 93.3 fl (80-96); MEAN PLT VOLUME 6.9 fl (7.5-11.1); MONO % 6.8 % (3.8-10.2); NEUT % 71.4 % (42.8-82.8); RBC 2.97 M/mm3 (3.60-5.2); WHITE BLOOD COUNT 9.4 K/mm3 (4.0-10.0)
[2019-01-25 08:30] LABS: ALBUMIN 1.4 g/dl (3.4-5.0); BILIRUBIN,TOTAL 0.2 mg/dL (0.2-1); CALCIUM 7.1 mg/dL (8.5-10.1); POTASSIUM 3.5 mmol/L (3.5-5.1); TOT PROT 4.7 g/dl (6.4-8.2)
--- NOTE | 2019-01-25 08:55 | PN ---
Progress Note, Physician - Current Medication List Current Medications: Active Medications Acetaminophen (Tylenol -) 650 mg PO Q6H PRN PRN Reason: FEVER Last Admin: 01/15/19 21:36 Dose: 650 mg Atorvastatin Calcium (Lipitor -) 40 mg PO HS [facility] Last Admin: 01/24/19 22:13 Dose: 40 mg Calcium Acetate (Phoslo -) 1,334 mg PO TIDCM [facility] Last Admin: 01/24/19 16:48 Dose: 1,334 mg Docusate Sodium (Colace -) 100 mg PO BID [facility] Last Admin: 01/24/19 09:15 Dose: 100 mg Fentanyl (Sublimaze Injection -) 25 mcg IVPUSH [id number] PRN PRN Reason: PAIN-PACU ORDER X 4 DOSES ONLY Ferrous Sulfate (Feosol -) 325 mg PO BIDWM [facility] Last Admin: 01/24/19 16:48 Dose: 325 mg Guaifenesin (Robitussin -) 10 ml PO Q6H PRN PRN Reason: COUGH Last Admin: 01/15/19 11:31 Dose: 10 ml Heparin Sodium (Porcine) (Heparin -) 1,000 unit IVPUSH PRN PRN PRN Reason: Heparin Heparin Sodium (Porcine) (Heparin -) 5,000 unit IVPUSH PRN PRN PRN Reason: Heparin Hydralazine HCl (Apresoline -) 50 mg PO TID [facility] Last Admin: 01/25/19 05:31 Dose: 50 mg Sodium Chloride (Normal Saline -) 250 mls @ 3,000 mls/hr IV PRN PRN PRN Reason: Hypotension during Dialysis Stop: 01/22/19 18:48 Heparin Sodium/Dextrose (Heparin Infusion -) 25,000 units in 500 mls @ 20 mls/ hr IVPB TITR [facility]; Protocol Last Admin: 01/24/19 21:09 Dose: Not Given Linezolid (Zyvox (Restricted To Id) -) 600 mg PO BID [facility] Last Admin: 01/24/19 22:13 Dose: 600 mg Losartan Potassium (Cozaar -) 100 mg PO DAILY [facility] Last Admin: 01/24/19 09:14 Dose: 100 mg Metoprolol Tartrate (Lopressor -) 50 mg PO TID [facility] Last Admin: 01/25/19 05:31 Dose: 50 mg Nifedipine (Procardia Xl -) 90 mg PO DAILY [facility] Last Admin: 01/24/19 09:29 Dose: 90 mg Ondansetron HCl (Zofran Injection) 4 mg IVPUSH Q6H PRN PRN Reason: NAUSEA AND/OR VOMITING Pantoprazole Sodium (Protonix -) 40 mg PO DAILY [facility] Last Admin: 01/24/19 09:15 Dose: 40 mg Phenytoin Sodium (Dilantin -) 200 mg PO BID [facility] Last Admin: 01/24/19 22:13 Dose: 200 mg Spironolactone (Aldactone -) 50 mg PO DAILY [facility] Last Admin: 01/24/19 09:15 Dose: 50 mg - Objective Vital Signs: Vital Signs Temperature 98.5 F 01/25/19 06:30 Pulse Rate 82 01/25/19 08:00 Respiratory Rate 15 01/25/19 08:00 Blood Pressure 157/108 H 01/25/19 08:00 O2 Sat by Pulse Oximetry (%) 94 L 01/24/19 21:00 Eyes: Yes: WNL, Conjunctiva Clear, EOM Intact HENT: Yes: WNL, Atraumatic, Normocephalic Neck: Yes: WNL, Supple, Trachea Midline Cardiovascular: Yes: WNL, Regular Rate and Rhythm Respiratory: Yes: WNL, Regular, CTA Bilaterally Gastrointestinal: Yes: WNL, Normal Bowel Sounds Genitourinary: Yes: WNL Musculoskeletal: Yes: WNL Extremities: Yes: WNL Edema: No Integumentary: Yes: WNL Neurological: Yes: WNL, Alert, Oriented ...Motor Strength: WNL Psychiatric: Yes: WNL Labs: CBC, BMP 01/25/19 05:30 01/25/19 05:30 INR, PTT INR 1.00 (0.83-1.09) 01/14/19 13:50 Assessment/Plan - Problems (1) Acute on chronic diastolic CHF (congestive heart failure) Assessment/Plan: On labetolol, nifedipine, losartan, hydralazine, and spironolactone. F/u BUN/Cr, electrolytes, daily wt, Is and Os. Code(s): I50.33 - ACUTE ON CHRONIC DIASTOLIC (CONGESTIVE) HEART FAILURE (2) Anemia Assessment/Plan: on iron supplements. Now on IV heparin (PAF). F/u stool quaiac; f/u Hb. Code(s): D64.9 - ANEMIA, UNSPECIFIED Qualifiers: Anemia type: unspecified type Qualified Code(s): D64.9 - Anemia, unspecified (3) Hypercholesterolemia Assessment/Plan: on atorvastatin; increase dose to keep LDL < 70 mg/dl. Code(s): E78.00 - PURE HYPERCHOLESTEROLEMIA, UNSPECIFIED (4) Cigarette nicotine dependence Code(s): F17.210 - NICOTINE DEPENDENCE, CIGARETTES, UNCOMPLICATED (5) [place] cardiac risk >20% in next 10 years Assessment/Plan: stress MIBI when stable, if not done recently. Pt's body weight/habitus may make this problematic. Code(s): Z91.89 - OTH PERSONAL RISK FACTORS, NOT ELSEWHERE CLASSIFIED (6) Renal failure Assessment/Plan: ECHO today: normal LVEF; normal wall motion. TNI < 0.02 x 3. EKG: NSR; no acute STT changes. From a cardiac perspective, pt was cleared to undergo surgery for AV fistula ( canceled due to development of PAF prior to surgery, after being given Versed). Code(s): N19 - UNSPECIFIED KIDNEY FAILURE Qualifiers: Renal failure chronicity: unspecified chronicity Qualified Code(s): N19 - Unspecified kidney failure (7) Hypertensive emergency Assessment/Plan: On labetolol, nifedipine, losartan, spironolactone, and hydralazine. On hemodialysis. Changed from labetolol to metoprolol due to development of AF with RVR. Code(s): I16.1 - HYPERTENSIVE EMERGENCY (8) Lower extremity edema Code(s): R60.0 - LOCALIZED EDEMA (9) Seizures Code(s): R56.9 - UNSPECIFIED CONVULSIONS (10) Osteoarthritis, knee Assessment/Plan: left knee OA Code(s): M17.10 - UNILATERAL PRIMARY OSTEOARTHRITIS, UNSPECIFIED KNEE (11) PAF (paroxysmal atrial fibrillation) Assessment/Plan: Pt developed PAF yesterday after begin given Versed; surgery for AV fistula was cancelled. ECHO: normal LVEF; mild LAE. (Pt denies hx of AF, but says, a few nights ago, for the first time, she had sudden onset of palpitations that lasted for hours; she did not inform staff at the time). Labetolol was changed to metoprolol tartrate 50 mg tid; she has now converted to NSR. Continue IV heparin for anticoagulation (if surgery is postponed for several days, can convert to DOAC). Keep K+ 4-4.5, Mg 2-2.4, PO4 2.5-4.9. Code(s): I48.0 - PAROXYSMAL ATRIAL FIBRILLATION (12) Hypokalemia Assessment/Plan: see under "PAF". Code(s): E87.6 - HYPOKALEMIA cc time spent 37 min
[2019-01-25] MEDS: DOCUSATE SODIUM 100 MG CAPSULE (FP) PO SCH ×2 (09:40→21:14)
[2019-01-25] MEDS ORDERED: PT OWN MED DRAWER 7, Y5N ONE ×3 (09:46→20:38)
[2019-01-25] MEDS: CALCIUM ACETATE 667 MG CAPSULE (FP) PO SCH ×3 (09:47→18:10)
[2019-01-25] MEDS: FERROUS SO4 325 MG TABLET (FP) PO SCH ×2 (09:47→18:10)
[2019-01-25] MEDS: PHENYTOIN NA EXTENDED 100 MG CAPSULE (FP) PO SCH ×2 (09:48→21:14)
[2019-01-25] MEDS: NIFEdipine E.R. 90 MG TABLET (FP) PO SCH (09:48)
[2019-01-25] MEDS: LOSARTAN POTASSIUM 50 MG TABLET (FP) PO SCH (09:48)
[2019-01-25] MEDS: SPIRONOLACTONE 25 MG TABLET (FP) PO SCH (09:48)
[2019-01-25] MEDS: LINEZOLID 600 MG TABLET (RESTRICTED TO ID) PO SCH ×2 (09:49→21:15)
[2019-01-25] MEDS: PANTOPRAZOLE 40 MG TABLET (FP) PO SCH (09:49)
[2019-01-25 10:08] LABS: PLATELET COUNT 470 K/MM3 (134-434)
--- NOTE | 2019-01-25 10:53 | PN ---
Progress Note, Physician History of Present Illness: Pt seen and examined at bedside. She is awake and alert. She denies chest pain this morning. - Current Medication List Current Medications: Active Medications Acetaminophen (Tylenol -) 650 mg PO Q6H PRN PRN Reason: FEVER Last Admin: 01/15/19 21:36 Dose: 650 mg Atorvastatin Calcium (Lipitor -) 40 mg PO HS [facility] Last Admin: 01/24/19 22:13 Dose: 40 mg Calcium Acetate (Phoslo -) 1,334 mg PO TIDCM [facility] Last Admin: 01/25/19 09:47 Dose: 1,334 mg Docusate Sodium (Colace -) 100 mg PO BID [facility] Last Admin: 01/25/19 09:40 Dose: Not Given Fentanyl (Sublimaze Injection -) 25 mcg IVPUSH [id number] PRN PRN Reason: PAIN-PACU ORDER X 4 DOSES ONLY Ferrous Sulfate (Feosol -) 325 mg PO BIDWM [facility] Last Admin: 01/25/19 09:47 Dose: 325 mg Guaifenesin (Robitussin -) 10 ml PO Q6H PRN PRN Reason: COUGH Last Admin: 01/15/19 11:31 Dose: 10 ml Heparin Sodium (Porcine) (Heparin -) 1,000 unit IVPUSH PRN PRN PRN Reason: Heparin Heparin Sodium (Porcine) (Heparin -) 5,000 unit IVPUSH PRN PRN PRN Reason: Heparin Hydralazine HCl (Apresoline -) 50 mg PO TID [facility] Last Admin: 01/25/19 05:31 Dose: 50 mg Sodium Chloride (Normal Saline -) 250 mls @ 3,000 mls/hr IV PRN PRN PRN Reason: Hypotension during Dialysis Stop: 01/22/19 18:48 Heparin Sodium/Dextrose (Heparin Infusion -) 25,000 units in 500 mls @ 20 mls/ hr IVPB [facility]; Protocol Last Admin: 01/24/19 21:09 Dose: Not Given Linezolid (Zyvox (Restricted To Id) -) 600 mg PO BID [facility] Last Admin: 01/25/19 09:49 Dose: 600 mg Losartan Potassium (Cozaar -) 100 mg PO DAILY [facility] Last Admin: 01/25/19 09:48 Dose: 100 mg Metoprolol Tartrate (Lopressor -) 50 mg PO TID [facility] Last Admin: 01/25/19 05:31 Dose: 50 mg Nifedipine (Procardia Xl -) 90 mg PO DAILY [facility] Last Admin: 01/25/19 09:48 Dose: 90 mg Ondansetron HCl (Zofran Injection) 4 mg IVPUSH Q6H PRN PRN Reason: NAUSEA AND/OR VOMITING Pantoprazole Sodium (Protonix -) 40 mg PO DAILY [facility] Last Admin: 01/25/19 09:49 Dose: 40 mg Phenytoin Sodium (Dilantin -) 200 mg PO BID [facility] Last Admin: 01/25/19 09:48 Dose: 200 mg Spironolactone (Aldactone -) 50 mg PO DAILY [facility] Last Admin: 01/25/19 09:48 Dose: 50 mg - Objective Vital Signs: Vital Signs Temperature 98.5 F 01/25/19 06:30 Pulse Rate 82 01/25/19 08:00 Respiratory Rate 15 01/25/19 08:00 Blood Pressure 157/108 H 01/25/19 08:00 O2 Sat by Pulse Oximetry (%) 94 L 01/24/19 21:00 Constitutional: Yes: Calm Eyes: Yes: Conjunctiva Clear HENT: Yes: Atraumatic Neck: Yes: Supple Cardiovascular: Yes: S1, S2 Respiratory: Yes: CTA Bilaterally Gastrointestinal: Yes: Normal Bowel Sounds, Soft Genitourinary: Yes: WNL Musculoskeletal: Yes: WNL Edema: Yes Edema: LLE: Trace, RLE: Trace Neurological: Yes: Oriented Psychiatric: Yes: Oriented Labs: CBC, BMP 01/25/19 05:30 01/25/19 05:30 INR, PTT INR 1.00 (0.83-1.09) 01/14/19 13:50 Problem List - Problems (1) Anemia Code(s): D64.9 - ANEMIA, UNSPECIFIED Qualifiers: Anemia type: unspecified type Qualified Code(s): D64.9 - Anemia, unspecified (2) Hyperkalemia Code(s): E87.5 - HYPERKALEMIA (3) Renal failure Code(s): N19 - UNSPECIFIED KIDNEY FAILURE Qualifiers: Renal failure chronicity: unspecified chronicity Qualified Code(s): N19 - Unspecified kidney failure Assessment/Plan Current Medications Generic Name Dose Route Start Last Admin Trade Name Freq PRN Reason Stop Dose Admin Acetaminophen 650 mg 05/29/19 21:22 01/15/19 21:36 Tylenol - PO 650 mg Q6H PRN Administration FEVER Atorvastatin Calcium 40 mg 01/10/19 22:00 01/24/19 22:13 Lipitor - PO 40 mg HS [facility] Administration Calcium Acetate 1,334 mg 01/16/19 01:17 01/25/19 09:47 Phoslo - PO 1,334 mg TIDCM [facility] Administration Docusate Sodium 100 mg 01/10/19 22:00 01/25/19 09:40 Colace - PO Not Given BID [facility] Fentanyl 25 mcg 01/23/19 13:01 Sublimaze Injection - IVPUSH [id number] PRN PAIN-PACU ORDER X 4 DOSES ONLY Ferrous Sulfate 325 mg 01/11/19 08:00 01/25/19 09:47 Feosol - PO 325 mg BIDWM [facility] Administration Guaifenesin 10 ml 01/13/19 15:00 01/15/19 11:31 Robitussin - PO 10 ml Q6H PRN Administration COUGH Heparin Sodium (Porcine) 1,000 unit 01/23/19 18:24 Heparin - IVPUSH PRN PRN Heparin Heparin Sodium (Porcine) 5,000 unit 01/23/19 18:24 Heparin - IVPUSH PRN PRN Heparin Hydralazine HCl 50 mg 01/22/19 12:03 01/25/19 05:31 Apresoline - PO 50 mg TID [facility] Administration Sodium Chloride 250 mls @ 3,000 mls/hr 01/21/19 18:48 Normal Saline - IV 01/22/19 18:48 PRN PRN Hypotension during Dialysis Heparin Sodium/Dextrose 25,000 units in 500 mls @ 20 mls/hr 01/23/19 18:30 21:09 Heparin Infusion - IVPB Not Given [facility] Protocol 1,000 UNITS/HR Linezolid 600 mg 01/22/19 10:00 01/25/19 09:49 Zyvox (Restricted To Id) - PO 600 mg BID [facility] Administration Losartan Potassium 100 mg 01/18/19 10:00 01/25/19 09:48 Cozaar - PO 100 mg DAILY [facility] Administration Metoprolol Tartrate 50 mg 01/23/19 22:00 01/25/19 05:31 Lopressor - PO 50 mg TID [facility] Administration Nifedipine 90 mg 01/20/19 12:30 01/25/19 09:48 Procardia Xl - PO 90 mg DAILY [facility] Administration Ondansetron HCl 4 mg 01/23/19 13:01 Zofran Injection IVPUSH Q6H PRN NAUSEA AND/OR VOMITING Pantoprazole Sodium 40 mg 01/11/19 10:00 01/25/19 09:49 Protonix - PO 40 mg DAILY [facility] Administration Phenytoin Sodium 200 mg 01/10/19 22:00 01/25/19 09:48 Dilantin - PO 200 mg BID [facility] Administration Spironolactone 50 mg 01/21/19 16:00 01/25/19 09:48 Aldactone - PO 50 mg DAILY [facility] Administration Impression 1. SOHAIL 2. lower ext edema 3. anemia 4. HTN 5. arthritis 6. nephrotic range proteinura 7. obesity 8. positive hep c virus on last admission 9. CKD 10. ESRD Plan - replace potassium - HD today - 3 k bath - vascular follow up - monitor bp - access not placed yesterday, she has shiley - renal diet
--- NOTE | 2019-01-25 13:49 | PN ---
Progress Note, Physician - Current Medication List Current Medications: Active Medications Acetaminophen (Tylenol -) 650 mg PO Q6H PRN PRN Reason: FEVER Last Admin: 01/15/19 21:36 Dose: 650 mg Atorvastatin Calcium (Lipitor -) 40 mg PO HS [facility] Last Admin: 01/24/19 22:13 Dose: 40 mg Calcium Acetate (Phoslo -) 1,334 mg PO TIDCM [facility] Last Admin: 01/25/19 09:47 Dose: 1,334 mg Docusate Sodium (Colace -) 100 mg PO BID [facility] Last Admin: 01/25/19 09:40 Dose: Not Given Fentanyl (Sublimaze Injection -) 25 mcg IVPUSH [id number] PRN PRN Reason: PAIN-PACU ORDER X 4 DOSES ONLY Ferrous Sulfate (Feosol -) 325 mg PO BIDWM [facility] Last Admin: 01/25/19 09:47 Dose: 325 mg Guaifenesin (Robitussin -) 10 ml PO Q6H PRN PRN Reason: COUGH Last Admin: 01/15/19 11:31 Dose: 10 ml Heparin Sodium (Porcine) (Heparin -) 1,000 unit IVPUSH PRN PRN PRN Reason: Heparin Heparin Sodium (Porcine) (Heparin -) 5,000 unit IVPUSH PRN PRN PRN Reason: Heparin Hydralazine HCl (Apresoline -) 50 mg PO TID [facility] Last Admin: 01/25/19 05:31 Dose: 50 mg Heparin Sodium/Dextrose (Heparin Infusion -) 25,000 units in 500 mls @ 20 mls/ hr IVPB TITR [facility]; Protocol Last Admin: 01/24/19 21:09 Dose: Not Given Sodium Chloride (Normal Saline -) 250 mls @ 3,000 mls/hr IV PRN PRN PRN Reason: Hypotension during Dialysis Stop: 01/26/19 10:53 Linezolid (Zyvox (Restricted To Id) -) 600 mg PO BID [facility] Last Admin: 01/25/19 09:49 Dose: 600 mg Losartan Potassium (Cozaar -) 100 mg PO DAILY [facility] Last Admin: 01/25/19 09:48 Dose: 100 mg Metoprolol Tartrate (Lopressor -) 50 mg PO TID [facility] Last Admin: 01/25/19 05:31 Dose: 50 mg Nifedipine (Procardia Xl -) 90 mg PO DAILY [facility] Last Admin: 01/25/19 09:48 Dose: 90 mg Ondansetron HCl (Zofran Injection) 4 mg IVPUSH Q6H PRN PRN Reason: NAUSEA AND/OR VOMITING Pantoprazole Sodium (Protonix -) 40 mg PO DAILY [facility] Last Admin: 01/25/19 09:49 Dose: 40 mg Phenytoin Sodium (Dilantin -) 200 mg PO BID [facility] Last Admin: 01/25/19 09:48 Dose: 200 mg Spironolactone (Aldactone -) 50 mg PO DAILY [facility] Last Admin: 01/25/19 09:48 Dose: 50 mg - Objective Vital Signs: Vital Signs Temperature 98.8 F 01/25/19 12:00 Pulse Rate 83 01/25/19 12:30 Respiratory Rate 16 01/25/19 12:30 Blood Pressure 183/110 H 01/25/19 12:30 O2 Sat by Pulse Oximetry (%) 94 L 01/25/19 09:00 Constitutional: Yes: No Distress HENT: Yes: Atraumatic Neck: Yes: Supple Cardiovascular: Yes: Regular Rate and Rhythm Respiratory: Yes: CTA Bilaterally Gastrointestinal: Yes: Normal Bowel Sounds Extremities: Yes: WNL Edema: No Peripheral Pulses WNL: Yes Neurological: Yes: Alert, Oriented Labs: CBC, BMP 01/25/19 05:30 01/25/19 05:30 INR, PTT INR 1.00 (0.83-1.09) 01/14/19 13:50 Problem List - Problems (1) HTN (hypertension) Code(s): I10 - ESSENTIAL (PRIMARY) HYPERTENSION Qualifiers: Hypertension type: essential hypertension Qualified Code(s): I10 - Essential (primary) hypertension (2) Hyperkalemia Assessment/Plan: on hd monitor Code(s): E87.5 - HYPERKALEMIA (3) Renal failure Assessment/Plan: ON HD for perma cath when stale Code(s): N19 - UNSPECIFIED KIDNEY FAILURE Qualifiers: Renal failure chronicity: unspecified chronicity Qualified Code(s): N19 - Unspecified kidney failure (4) Seizure disorder Code(s): G40.909 - EPILEPSY, UNSP, NOT INTRACTABLE, WITHOUT STATUS EPILEPTICUS (5) Anemia Assessment/Plan: stable s/p blood transfusion Code(s): D64.9 - ANEMIA, UNSPECIFIED Qualifiers: Anemia type: unspecified type Qualified Code(s): D64.9 - Anemia, unspecified (6) Acute on chronic diastolic CHF (congestive heart failure) Code(s): I50.33 - ACUTE ON CHRONIC DIASTOLIC (CONGESTIVE) HEART FAILURE (7) Hypercholesterolemia Code(s): E78.00 - PURE HYPERCHOLESTEROLEMIA, UNSPECIFIED (8) Seizures Code(s): R56.9 - UNSPECIFIED CONVULSIONS (9) Sepsis Assessment/Plan: on abx for vre Code(s): A41.9 - SEPSIS, UNSPECIFIED ORGANISM
[2019-01-25] MEDS: HEPARIN INFUSION - 25,000 UNITS/500 ML INFUS.BAG IVPB SCH (16:17)
--- NOTE | 2019-01-25 17:01 | EKG ---
Test Reason : Blood Pressure : / mmHG Vent. Rate : 081 BPM Atrial Rate : 081 BPM P-R Int : 140 ms QRS Dur : 076 ms QT Int : 430 ms P-R-T Axes : 044 011 022 degrees QTc Int : 499 ms NORMAL SINUS RHYTHM PROLONGED QT ABNORMAL ECG WHEN COMPARED WITH ECG OF 24-JAN-2019 10:24, NO SIGNIFICANT CHANGE WAS FOUND Confirmed by CARRIE ALMAZAN MD ([id number]) on 01/25/2019 5:01:27 PM Referred By: Sage JUAREZ Confirmed By:CARRIE ALMAZAN MD
--- NOTE | 2019-01-25 19:05 | PN ---
Progress Note, Physician History of Present Illness: Pt seen and examined, chart reviewed. Afebrile, wbc normal. No SOB or any specific complaints. Developed PAF yesterday, surgery for vascular access deferred. - Current Medication List Current Medications: Active Medications Acetaminophen (Tylenol -) 650 mg PO Q6H PRN PRN Reason: FEVER Last Admin: 01/15/19 21:36 Dose: 650 mg Atorvastatin Calcium (Lipitor -) 40 mg PO HS [facility] Last Admin: 01/24/19 22:13 Dose: 40 mg Calcium Acetate (Phoslo -) 1,334 mg PO TIDCM [facility] Last Admin: 01/25/19 18:10 Dose: 1,334 mg Docusate Sodium (Colace -) 100 mg PO BID [facility] Last Admin: 01/25/19 09:40 Dose: Not Given Fentanyl (Sublimaze Injection -) 25 mcg IVPUSH [id number] PRN PRN Reason: PAIN-PACU ORDER X 4 DOSES ONLY Ferrous Sulfate (Feosol -) 325 mg PO BIDWM [facility] Last Admin: 01/25/19 18:10 Dose: 325 mg Guaifenesin (Robitussin -) 10 ml PO Q6H PRN PRN Reason: COUGH Last Admin: 01/15/19 11:31 Dose: 10 ml Heparin Sodium (Porcine) (Heparin -) 1,000 unit IVPUSH PRN PRN PRN Reason: Heparin Heparin Sodium (Porcine) (Heparin -) 5,000 unit IVPUSH PRN PRN PRN Reason: Heparin Hydralazine HCl (Apresoline -) 50 mg PO TID [facility] Last Admin: 01/25/19 14:07 Dose: 50 mg Heparin Sodium/Dextrose (Heparin Infusion -) 25,000 units in 500 mls @ 20 mls/ hr IVPB TITR [facility]; Protocol Last Admin: 01/25/19 16:17 Dose: 1,000 units/hr, 20 mls/hr Sodium Chloride (Normal Saline -) 250 mls @ 3,000 mls/hr IV PRN PRN PRN Reason: Hypotension during Dialysis Stop: 01/26/19 10:53 Linezolid (Zyvox (Restricted To Id) -) 600 mg PO BID [facility] Last Admin: 01/25/19 09:49 Dose: 600 mg Losartan Potassium (Cozaar -) 100 mg PO DAILY [facility] Last Admin: 01/25/19 09:48 Dose: 100 mg Metoprolol Tartrate (Lopressor -) 50 mg PO TID [facility] Last Admin: 01/25/19 14:07 Dose: 50 mg Nifedipine (Procardia Xl -) 90 mg PO DAILY [facility] Last Admin: 01/25/19 09:48 Dose: 90 mg Ondansetron HCl (Zofran Injection) 4 mg IVPUSH Q6H PRN PRN Reason: NAUSEA AND/OR VOMITING Pantoprazole Sodium (Protonix -) 40 mg PO DAILY [facility] Last Admin: 01/25/19 09:49 Dose: 40 mg Phenytoin Sodium (Dilantin -) 200 mg PO BID [facility] Last Admin: 01/25/19 09:48 Dose: 200 mg Spironolactone (Aldactone -) 50 mg PO DAILY [facility] Last Admin: 01/25/19 09:48 Dose: 50 mg - Objective Vital Signs: Vital Signs Temperature 98.8 F 01/25/19 12:00 Pulse Rate 90 01/25/19 16:25 Respiratory Rate 17 01/25/19 16:25 Blood Pressure 165/102 H 01/25/19 16:25 O2 Sat by Pulse Oximetry (%) 94 L 01/25/19 09:00 Constitutional: Yes: No Distress, Calm Cardiovascular: Yes: Regular Rate and Rhythm Respiratory: Yes: Regular Gastrointestinal: Yes: Normal Bowel Sounds, Soft, Abdomen, Obese Integumentary: Yes: WNL Neurological: Yes: Alert Labs: CBC, BMP 01/25/19 05:30 01/25/19 05:30 INR, PTT INR 1.00 (0.83-1.09) 01/14/19 13:50 Microbiology 01/19/19 12:30 Urine - Urine Clean Catch Urine Culture - Final Vr Ec Faecium 01/14/19 13:55 Blood - Peripheral Venous Blood Culture - Final NO GROWTH AFTER 5 DAYS INCUBATION 01/14/19 13:50 Blood - Peripheral Venous Blood Culture - Final NO GROWTH AFTER 5 DAYS INCUBATION 01/17/19 06:15 Urine - Urine Clean Catch Urine Culture - Final Contaminated: Please Repeat 01/10/19 23:30 Urine - Urine Clean Catch Urine Culture - Final Contaminated: Please Repeat - ....Imaging Chest X-ray: Report Reviewed Problem List - Problems (1) Acute on chronic diastolic CHF (congestive heart failure) Code(s): I50.33 - ACUTE ON CHRONIC DIASTOLIC (CONGESTIVE) HEART FAILURE (2) Anemia Code(s): D64.9 - ANEMIA, UNSPECIFIED Qualifiers: Anemia type: unspecified type Qualified Code(s): D64.9 - Anemia, unspecified (3) Hypercholesterolemia Code(s): E78.00 - PURE HYPERCHOLESTEROLEMIA, UNSPECIFIED (4) Osteoarthritis, knee Code(s): M17.10 - UNILATERAL PRIMARY OSTEOARTHRITIS, UNSPECIFIED KNEE (5) PAF (paroxysmal atrial fibrillation) Code(s): I48.0 - PAROXYSMAL ATRIAL FIBRILLATION (6) Renal failure Code(s): N19 - UNSPECIFIED KIDNEY FAILURE Qualifiers: Renal failure chronicity: unspecified chronicity Qualified Code(s): N19 - Unspecified kidney failure (7) Seizures Code(s): R56.9 - UNSPECIFIED CONVULSIONS (8) Hypertensive emergency Code(s): I16.1 - HYPERTENSIVE EMERGENCY Assessment/Plan VRE UTI -- fever/leukocytosis resolved -- continue Linezolid -- Nephrology following Awaiting vascular access for HD Continue monitor
[2019-01-25] MEDS: ATORVASTATIN CA 40 MG TABLET (FP) PO SCH (21:14)
[2019-01-26] MEDS: METOPROLOL TARTRATE 50 MG TABLET (FP) PO SCH ×3 (06:39→21:42)
[2019-01-26] MEDS: hydrALAZINE HCL 25 MG TABLET (FP) PO SCH ×3 (06:39→21:42)
[2019-01-26 07:22] LABS: HEMATOCRIT 26.1 % (32.4-45.2); HEMOGLOBIN 9.5 GM/dL (10.7-15.3); MCH 35.3 pg (25.7-33.7); MCHC 36.5 g/dl (32.0-36.0); MEAN CELL VOLUME 96.6 fl (80-96); MEAN PLT VOLUME 7.3 fl (7.5-11.1); RDW 14.9 % (11.6-15.6); WHITE BLOOD COUNT 9.1 K/mm3 (4.0-10.0)
--- NOTE | 2019-01-26 08:41 | PN ---
Progress Note, Physician - Current Medication List Current Medications: Active Medications Acetaminophen (Tylenol -) 650 mg PO Q6H PRN PRN Reason: FEVER Last Admin: 01/15/19 21:36 Dose: 650 mg Atorvastatin Calcium (Lipitor -) 40 mg PO HS [facility] Last Admin: 01/25/19 21:14 Dose: 40 mg Calcium Acetate (Phoslo -) 1,334 mg PO TIDCM [facility] Last Admin: 01/25/19 18:10 Dose: 1,334 mg Docusate Sodium (Colace -) 100 mg PO BID [facility] Last Admin: 01/25/19 21:14 Dose: 100 mg Fentanyl (Sublimaze Injection -) 25 mcg IVPUSH [id number] PRN PRN Reason: PAIN-PACU ORDER X 4 DOSES ONLY Ferrous Sulfate (Feosol -) 325 mg PO BIDWM [facility] Last Admin: 01/25/19 18:10 Dose: 325 mg Guaifenesin (Robitussin -) 10 ml PO Q6H PRN PRN Reason: COUGH Last Admin: 01/15/19 11:31 Dose: 10 ml Heparin Sodium (Porcine) (Heparin -) 1,000 unit IVPUSH PRN PRN PRN Reason: Heparin Heparin Sodium (Porcine) (Heparin -) 5,000 unit IVPUSH PRN PRN PRN Reason: Heparin Hydralazine HCl (Apresoline -) 50 mg PO TID [facility] Last Admin: 01/26/19 06:39 Dose: 50 mg Heparin Sodium/Dextrose (Heparin Infusion -) 25,000 units in 500 mls @ 20 mls/ hr IVPB TITR [facility]; Protocol Last Admin: 01/25/19 16:17 Dose: 1,000 units/hr, 20 mls/hr Sodium Chloride (Normal Saline -) 250 mls @ 3,000 mls/hr IV PRN PRN PRN Reason: Hypotension during Dialysis Stop: 01/26/19 10:53 Linezolid (Zyvox (Restricted To Id) -) 600 mg PO BID [facility] Last Admin: 01/25/19 21:15 Dose: 600 mg Losartan Potassium (Cozaar -) 100 mg PO DAILY [facility] Last Admin: 01/25/19 09:48 Dose: 100 mg Metoprolol Tartrate (Lopressor -) 50 mg PO TID [facility] Last Admin: 01/26/19 06:39 Dose: 50 mg Nifedipine (Procardia Xl -) 90 mg PO DAILY [facility] Last Admin: 01/25/19 09:48 Dose: 90 mg Ondansetron HCl (Zofran Injection) 4 mg IVPUSH Q6H PRN PRN Reason: NAUSEA AND/OR VOMITING Pantoprazole Sodium (Protonix -) 40 mg PO DAILY [facility] Last Admin: 01/25/19 09:49 Dose: 40 mg Phenytoin Sodium (Dilantin -) 200 mg PO BID [facility] Last Admin: 01/25/19 21:14 Dose: 200 mg Spironolactone (Aldactone -) 50 mg PO DAILY [facility] Last Admin: 01/25/19 09:48 Dose: 50 mg - Objective Vital Signs: Vital Signs Temperature 98.3 F 01/26/19 06:00 Pulse Rate 89 01/26/19 06:00 Respiratory Rate 21 H 01/26/19 06:00 Blood Pressure 155/101 H 01/26/19 06:00 O2 Sat by Pulse Oximetry (%) 95 01/25/19 21:00 Eyes: Yes: WNL, Conjunctiva Clear, EOM Intact HENT: Yes: WNL, Atraumatic, Normocephalic Neck: Yes: WNL, Supple, Trachea Midline Cardiovascular: Yes: WNL, Regular Rate and Rhythm Respiratory: Yes: WNL, Regular, CTA Bilaterally Gastrointestinal: Yes: WNL, Normal Bowel Sounds Genitourinary: Yes: WNL Musculoskeletal: Yes: WNL Extremities: Yes: WNL Edema: No Integumentary: Yes: WNL Neurological: Yes: WNL, Alert, Oriented ...Motor Strength: WNL Psychiatric: Yes: WNL Labs: CBC, BMP 01/26/19 06:05 01/25/19 05:30 INR, PTT INR 1.00 (0.83-1.09) 01/14/19 13:50 Assessment/Plan - Problems (1) Acute on chronic diastolic CHF (congestive heart failure) Assessment/Plan: On labetolol, nifedipine, losartan, hydralazine, and spironolactone. F/u BUN/Cr, electrolytes, daily wt, Is and Os. Code(s): I50.33 - ACUTE ON CHRONIC DIASTOLIC (CONGESTIVE) HEART FAILURE (2) Anemia Assessment/Plan: on iron supplements. Now on IV heparin (PAF). F/u stool quaiac; f/u Hb. Code(s): D64.9 - ANEMIA, UNSPECIFIED Qualifiers: Anemia type: unspecified type Qualified Code(s): D64.9 - Anemia, unspecified (3) Hypercholesterolemia Assessment/Plan: on atorvastatin; increase dose to keep LDL < 70 mg/dl. Code(s): E78.00 - PURE HYPERCHOLESTEROLEMIA, UNSPECIFIED (4) Cigarette nicotine dependence Code(s): F17.210 - NICOTINE DEPENDENCE, CIGARETTES, UNCOMPLICATED (5) [place] cardiac risk >20% in next 10 years Assessment/Plan: stress MIBI when stable, if not done recently. Pt's body weight/habitus may make this problematic. Code(s): Z91.89 - OTH PERSONAL RISK FACTORS, NOT ELSEWHERE CLASSIFIED (6) Renal failure Assessment/Plan: ECHO today: normal LVEF; normal wall motion. TNI < 0.02 x 3. EKG: NSR; no acute STT changes. From a cardiac perspective, pt was cleared to undergo surgery for AV fistula ( canceled due to development of PAF prior to surgery, after being given Versed). Code(s): N19 - UNSPECIFIED KIDNEY FAILURE Qualifiers: Renal failure chronicity: unspecified chronicity Qualified Code(s): N19 - Unspecified kidney failure (7) Hypertensive emergency Assessment/Plan: On labetolol, nifedipine, losartan, spironolactone, and hydralazine. On hemodialysis. Changed from labetolol to metoprolol due to development of AF with RVR. Code(s): I16.1 - HYPERTENSIVE EMERGENCY (8) Lower extremity edema Code(s): R60.0 - LOCALIZED EDEMA (9) Seizures Code(s): R56.9 - UNSPECIFIED CONVULSIONS (10) Osteoarthritis, knee Assessment/Plan: left knee OA Code(s): M17.10 - UNILATERAL PRIMARY OSTEOARTHRITIS, UNSPECIFIED KNEE (11) PAF (paroxysmal atrial fibrillation) Assessment/Plan: Pt developed PAF yesterday after begin given Versed; surgery for AV fistula was cancelled. ECHO: normal LVEF; mild LAE. (Pt denies hx of AF, but says, a few nights ago, for the first time, she had sudden onset of palpitations that lasted for hours; she did not inform staff at the time). Labetolol was changed to metoprolol tartrate 50 mg tid; she has now converted to NSR. Continue IV heparin for anticoagulation (if surgery is postponed for several days, can convert to DOAC). Keep K+ 4-4.5, Mg 2-2.4, PO4 2.5-4.9. Code(s): I48.0 - PAROXYSMAL ATRIAL FIBRILLATION (12) Hypokalemia Assessment/Plan: see under "PAF". Code(s): E87.6 - HYPOKALEMIA cc time spent 37 min
[2019-01-26] MEDS: CALCIUM ACETATE 667 MG CAPSULE (FP) PO SCH ×3 (08:44→17:52)
[2019-01-26] MEDS: FERROUS SO4 325 MG TABLET (FP) PO SCH ×2 (08:45→17:52)
[2019-01-26] MEDS: LOSARTAN POTASSIUM 50 MG TABLET (FP) PO SCH (09:43)
[2019-01-26] MEDS: NIFEdipine E.R. 90 MG TABLET (FP) PO SCH (09:43)
[2019-01-26] MEDS: PHENYTOIN NA EXTENDED 100 MG CAPSULE (FP) PO SCH ×2 (09:43→21:42)
[2019-01-26] MEDS: SPIRONOLACTONE 25 MG TABLET (FP) PO SCH (09:44)
[2019-01-26] MEDS: DOCUSATE SODIUM 100 MG CAPSULE (FP) PO SCH ×2 (09:44→21:42)
[2019-01-26] MEDS: PANTOPRAZOLE 40 MG TABLET (FP) PO SCH (09:44)
[2019-01-26] MEDS: LINEZOLID 600 MG TABLET (RESTRICTED TO ID) PO SCH ×2 (09:45→21:42)
--- NOTE | 2019-01-26 11:57 | PN ---
Progress Note, Physician History of Present Illness: Pt seen and examined at bedside. She is awake and alert. She denies shortness of breath. - Current Medication List Current Medications: Active Medications Acetaminophen (Tylenol -) 650 mg PO Q6H PRN PRN Reason: FEVER Last Admin: 01/15/19 21:36 Dose: 650 mg Atorvastatin Calcium (Lipitor -) 40 mg PO HS [facility] Last Admin: 01/25/19 21:14 Dose: 40 mg Calcium Acetate (Phoslo -) 1,334 mg PO TIDCM [facility] Last Admin: 01/26/19 08:44 Dose: 1,334 mg Docusate Sodium (Colace -) 100 mg PO BID [facility] Last Admin: 01/26/19 09:44 Dose: 100 mg Fentanyl (Sublimaze Injection -) 25 mcg IVPUSH [id number] PRN PRN Reason: PAIN-PACU ORDER X 4 DOSES ONLY Ferrous Sulfate (Feosol -) 325 mg PO BIDWM [facility] Last Admin: 01/26/19 08:45 Dose: 325 mg Guaifenesin (Robitussin -) 10 ml PO Q6H PRN PRN Reason: COUGH Last Admin: 01/15/19 11:31 Dose: 10 ml Heparin Sodium (Porcine) (Heparin -) 1,000 unit IVPUSH PRN PRN PRN Reason: Heparin Heparin Sodium (Porcine) (Heparin -) 5,000 unit IVPUSH PRN PRN PRN Reason: Heparin Hydralazine HCl (Apresoline -) 50 mg PO TID [facility] Last Admin: 01/26/19 06:39 Dose: 50 mg Heparin Sodium/Dextrose (Heparin Infusion -) 25,000 units in 500 mls @ 20 mls/ hr IVPB TITR [facility]; Protocol Last Admin: 01/25/19 16:17 Dose: 1,000 units/hr, 20 mls/hr Sodium Chloride (Normal Saline -) 250 mls @ 3,000 mls/hr IV PRN PRN PRN Reason: Hypotension during Dialysis Stop: 01/26/19 10:53 Linezolid (Zyvox (Restricted To Id) -) 600 mg PO BID [facility] Last Admin: 01/25/19 21:15 Dose: 600 mg Losartan Potassium (Cozaar -) 100 mg PO DAILY [facility] Last Admin: 01/26/19 09:43 Dose: 100 mg Metoprolol Tartrate (Lopressor -) 50 mg PO TID [facility] Last Admin: 01/26/19 06:39 Dose: 50 mg Nifedipine (Procardia Xl -) 90 mg PO DAILY [facility] Last Admin: 01/26/19 09:43 Dose: 90 mg Ondansetron HCl (Zofran Injection) 4 mg IVPUSH Q6H PRN PRN Reason: NAUSEA AND/OR VOMITING Pantoprazole Sodium (Protonix -) 40 mg PO DAILY [facility] Last Admin: 01/26/19 09:44 Dose: 40 mg Phenytoin Sodium (Dilantin -) 200 mg PO BID [facility] Last Admin: 01/26/19 09:43 Dose: 200 mg Spironolactone (Aldactone -) 50 mg PO DAILY [facility] Last Admin: 01/26/19 09:44 Dose: 50 mg - Objective Vital Signs: Vital Signs Temperature 98.4 F 01/26/19 10:00 Pulse Rate 85 01/26/19 10:00 Respiratory Rate 14 01/26/19 10:00 Blood Pressure 162/101 H 01/26/19 10:00 O2 Sat by Pulse Oximetry (%) 95 01/26/19 09:00 Constitutional: Yes: Calm Eyes: Yes: Conjunctiva Clear HENT: Yes: Atraumatic Neck: Yes: Supple Cardiovascular: Yes: S1, S2 Respiratory: Yes: CTA Bilaterally, On Nasal O2 Gastrointestinal: Yes: Soft, Abdomen, Obese Genitourinary: Yes: WNL Musculoskeletal: Yes: WNL Edema: Yes Edema: LLE: Trace, RLE: Trace Neurological: Yes: Oriented Psychiatric: Yes: Oriented Labs: CBC, BMP 01/26/19 06:05 01/25/19 05:30 INR, PTT INR 1.00 (0.83-1.09) 01/14/19 13:50 Problem List - Problems (1) Anemia Code(s): D64.9 - ANEMIA, UNSPECIFIED Qualifiers: Anemia type: unspecified type Qualified Code(s): D64.9 - Anemia, unspecified (2) Hyperkalemia Code(s): E87.5 - HYPERKALEMIA (3) Renal failure Code(s): N19 - UNSPECIFIED KIDNEY FAILURE Qualifiers: Renal failure chronicity: unspecified chronicity Qualified Code(s): N19 - Unspecified kidney failure Assessment/Plan Current Medications Generic Name Dose Route Start Last Admin Trade Name Freq PRN Reason Stop Dose Admin Acetaminophen 650 mg 01/15/19 21:22 01/15/19 21:36 Tylenol - PO 650 mg Q6H PRN Administration FEVER Atorvastatin Calcium 40 mg 01/10/19 22:00 01/25/19 21:14 Lipitor - PO 40 mg HS ELIJAH Administration Calcium Acetate 1,334 mg 01/16/19 01:17 01/26/19 08:44 Phoslo - PO 1,334 mg TIDCM ELIJAH Administration Docusate Sodium 100 mg 01/10/19 22:00 01/26/19 09:44 Colace - PO 100 mg BID ELIJAH Administration Fentanyl 25 mcg 01/23/19 13:01 Sublimaze Injection - IVPUSH [id number] PRN PAIN-PACU ORDER X 4 DOSES ONLY Ferrous Sulfate 325 mg 01/11/19 08:00 01/26/19 08:45 Feosol - PO 325 mg BIDWM ELIJAH Administration Guaifenesin 10 ml 01/13/19 15:00 01/15/19 11:31 Robitussin - PO 10 ml Q6H PRN Administration COUGH Heparin Sodium (Porcine) 1,000 unit 01/23/19 18:24 Heparin - IVPUSH PRN PRN Heparin Heparin Sodium (Porcine) 5,000 unit 01/23/19 18:24 Heparin - IVPUSH PRN PRN Heparin Hydralazine HCl 50 mg 01/22/19 12:03 01/26/19 06:39 Apresoline - PO 50 mg TID ELIJAH Administration Heparin Sodium/Dextrose 25,000 units in 500 mls @ 20 mls/hr 01/23/19 18:30 16:17 Heparin Infusion - IVPB 1,000 units/hr TITR ELIJAH 20 mls/hr Administration Protocol 1,000 UNITS/HR Sodium Chloride 250 mls @ 3,000 mls/hr 01/25/19 10:53 Normal Saline - IV 01/26/19 10:53 PRN PRN Hypotension during Dialysis Linezolid 600 mg 01/22/19 10:00 01/25/19 21:15 Zyvox (Restricted To Id) - PO 600 mg BID ELIJAH Administration Losartan Potassium 100 mg 01/18/19 10:00 01/26/19 09:43 Cozaar - PO 100 mg DAILY ELIJAH Administration Metoprolol Tartrate 50 mg 01/23/19 22:00 01/26/19 06:39 Lopressor - PO 50 mg TID ELIJAH Administration Nifedipine 90 mg 01/20/19 12:30 01/26/19 09:43 Procardia Xl - PO 90 mg DAILY [facility] Administration Ondansetron HCl 4 mg 01/23/19 13:01 Zofran Injection IVPUSH Q6H PRN NAUSEA AND/OR VOMITING Pantoprazole Sodium 40 mg 01/11/19 10:00 01/26/19 09:44 Protonix - PO 40 mg DAILY [facility] Administration Phenytoin Sodium 200 mg 01/10/19 22:00 01/26/19 09:43 Dilantin - PO 200 mg BID ELIJAH Administration Spironolactone 50 mg 01/21/19 16:00 01/26/19 09:44 Aldactone - PO 50 mg DAILY [facility]IJAH Administration Impression 1. SOHAIL 2. lower ext edema 3. anemia 4. HTN 5. arthritis 6. nephrotic range proteinura 7. obesity 8. positive hep c virus on last admission 9. CKD 10. ESRD Plan - repeat labs in am - monitor bp after meds - can increase hydralazine dose if needed - vascular follow up for access - 3 k bath - renal diet
[2019-01-26 13:39] LABS: PLATELET COUNT 351 K/MM3 (134-434)
--- NOTE | 2019-01-26 13:47 | PN ---
Progress Note, Physician History of Present Illness: Pt alert, remains afebrile. No distress, denies SOB/CP/cough, dysuria. - Current Medication List Current Medications: Active Medications Acetaminophen (Tylenol -) 650 mg PO Q6H PRN PRN Reason: FEVER Last Admin: 01/15/19 21:36 Dose: 650 mg Atorvastatin Calcium (Lipitor -) 40 mg PO HS [facility] Last Admin: 01/25/19 21:14 Dose: 40 mg Calcium Acetate (Phoslo -) 1,334 mg PO TIDCM [facility] Last Admin: 01/26/19 12:50 Dose: 1,334 mg Docusate Sodium (Colace -) 100 mg PO BID [facility] Last Admin: 01/26/19 09:44 Dose: 100 mg Fentanyl (Sublimaze Injection -) 25 mcg IVPUSH [id number] PRN PRN Reason: PAIN-PACU ORDER X 4 DOSES ONLY Ferrous Sulfate (Feosol -) 325 mg PO BIDWM [facility] Last Admin: 01/26/19 08:45 Dose: 325 mg Guaifenesin (Robitussin -) 10 ml PO Q6H PRN PRN Reason: COUGH Last Admin: 01/15/19 11:31 Dose: 10 ml Heparin Sodium (Porcine) (Heparin -) 1,000 unit IVPUSH PRN PRN PRN Reason: Heparin Heparin Sodium (Porcine) (Heparin -) 5,000 unit IVPUSH PRN PRN PRN Reason: Heparin Hydralazine HCl (Apresoline -) 50 mg PO TID [facility] Last Admin: 01/26/19 06:39 Dose: 50 mg Heparin Sodium/Dextrose (Heparin Infusion -) 25,000 units in 500 mls @ 20 mls/ hr IVPB TITR [facility]; Protocol Last Admin: 01/25/19 16:17 Dose: 1,000 units/hr, 20 mls/hr Sodium Chloride (Normal Saline -) 250 mls @ 3,000 mls/hr IV PRN PRN PRN Reason: Hypotension during Dialysis Stop: 01/26/19 10:53 Linezolid (Zyvox (Restricted To Id) -) 600 mg PO BID [facility] Last Admin: 01/25/19 21:15 Dose: 600 mg Losartan Potassium (Cozaar -) 100 mg PO DAILY [facility] Last Admin: 01/26/19 09:43 Dose: 100 mg Metoprolol Tartrate (Lopressor -) 50 mg PO TID [facility] Last Admin: 01/26/19 06:39 Dose: 50 mg Nifedipine (Procardia Xl -) 90 mg PO DAILY [facility] Last Admin: 01/26/19 09:43 Dose: 90 mg Ondansetron HCl (Zofran Injection) 4 mg IVPUSH Q6H PRN PRN Reason: NAUSEA AND/OR VOMITING Pantoprazole Sodium (Protonix -) 40 mg PO DAILY [facility] Last Admin: 01/26/19 09:44 Dose: 40 mg Phenytoin Sodium (Dilantin -) 200 mg PO BID [facility] Last Admin: 01/26/19 09:43 Dose: 200 mg Spironolactone (Aldactone -) 50 mg PO DAILY [facility] Last Admin: 01/26/19 09:44 Dose: 50 mg - Objective Vital Signs: Vital Signs Temperature 98.4 F 01/26/19 10:00 Pulse Rate 85 01/26/19 10:00 Respiratory Rate 14 01/26/19 10:00 Blood Pressure 162/101 H 01/26/19 10:00 O2 Sat by Pulse Oximetry (%) 95 01/26/19 09:00 Constitutional: Yes: No Distress, Calm Cardiovascular: Yes: Regular Rate and Rhythm Respiratory: Yes: Regular Gastrointestinal: Yes: Normal Bowel Sounds, Soft Neurological: Yes: Alert Labs: CBC, BMP 01/26/19 06:05 01/25/19 05:30 INR, PTT INR 1.00 (0.83-1.09) 01/14/19 13:50 Problem List - Problems (1) Acute on chronic diastolic CHF (congestive heart failure) Code(s): I50.33 - ACUTE ON CHRONIC DIASTOLIC (CONGESTIVE) HEART FAILURE (2) Anemia Code(s): D64.9 - ANEMIA, UNSPECIFIED Qualifiers: Anemia type: unspecified type Qualified Code(s): D64.9 - Anemia, unspecified (3) Hypercholesterolemia Code(s): E78.00 - PURE HYPERCHOLESTEROLEMIA, UNSPECIFIED (4) Osteoarthritis, knee Code(s): M17.10 - UNILATERAL PRIMARY OSTEOARTHRITIS, UNSPECIFIED KNEE (5) PAF (paroxysmal atrial fibrillation) Code(s): I48.0 - PAROXYSMAL ATRIAL FIBRILLATION (6) Renal failure Code(s): N19 - UNSPECIFIED KIDNEY FAILURE Qualifiers: Renal failure chronicity: unspecified chronicity Qualified Code(s): N19 - Unspecified kidney failure (7) Seizures Code(s): R56.9 - UNSPECIFIED CONVULSIONS (8) Hypertensive emergency Code(s): I16.1 - HYPERTENSIVE EMERGENCY Assessment/Plan VRE UTI ESRD -- continue Linezolid -- monitor BP -- Nephrology following -- vascular access for HD planned Continue monitor
[2019-01-26] MEDS ORDERED: PT OWN MED DRAWER 7, Y5N ONE (14:51)
[2019-01-26] MEDS: HEPARIN INFUSION - 25,000 UNITS/500 ML INFUS.BAG IVPB SCH (17:55)
--- NOTE | 2019-01-26 20:28 | PN ---
Progress Note, Physician History of Present Illness: No new complaints - Current Medication List Current Medications: Active Medications Acetaminophen (Tylenol -) 650 mg PO Q6H PRN PRN Reason: FEVER Last Admin: 01/15/19 21:36 Dose: 650 mg Atorvastatin Calcium (Lipitor -) 40 mg PO HS [facility] Last Admin: 01/25/19 21:14 Dose: 40 mg Calcium Acetate (Phoslo -) 1,334 mg PO TIDCM [facility] Last Admin: 01/26/19 17:52 Dose: 1,334 mg Docusate Sodium (Colace -) 100 mg PO BID [facility] Last Admin: 01/26/19 09:44 Dose: 100 mg Fentanyl (Sublimaze Injection -) 25 mcg IVPUSH [id number] PRN PRN Reason: PAIN-PACU ORDER X 4 DOSES ONLY Ferrous Sulfate (Feosol -) 325 mg PO BIDWM [facility] Last Admin: 01/26/19 17:52 Dose: 325 mg Guaifenesin (Robitussin -) 10 ml PO Q6H PRN PRN Reason: COUGH Last Admin: 01/15/19 11:31 Dose: 10 ml Heparin Sodium (Porcine) (Heparin -) 1,000 unit IVPUSH PRN PRN PRN Reason: Heparin Heparin Sodium (Porcine) (Heparin -) 5,000 unit IVPUSH PRN PRN PRN Reason: Heparin Hydralazine HCl (Apresoline -) 50 mg PO TID [facility] Last Admin: 01/26/19 14:49 Dose: 50 mg Heparin Sodium/Dextrose (Heparin Infusion -) 25,000 units in 500 mls @ 20 mls/ hr IVPB TITR [facility]; Protocol Last Admin: 01/26/19 17:55 Dose: 1,000 units/hr, 20 mls/hr Sodium Chloride (Normal Saline -) 250 mls @ 3,000 mls/hr IV PRN PRN PRN Reason: Hypotension during Dialysis Stop: 01/26/19 10:53 Linezolid (Zyvox (Restricted To Id) -) 600 mg PO BID [facility] Last Admin: 01/26/19 09:45 Dose: 600 mg Losartan Potassium (Cozaar -) 100 mg PO DAILY [facility] Last Admin: 01/26/19 09:43 Dose: 100 mg Metoprolol Tartrate (Lopressor -) 50 mg PO TID [facility] Last Admin: 01/26/19 14:49 Dose: 50 mg Nifedipine (Procardia Xl -) 90 mg PO DAILY [facility] Last Admin: 01/26/19 09:43 Dose: 90 mg Ondansetron HCl (Zofran Injection) 4 mg IVPUSH Q6H PRN PRN Reason: NAUSEA AND/OR VOMITING Pantoprazole Sodium (Protonix -) 40 mg PO DAILY [facility] Last Admin: 01/26/19 09:44 Dose: 40 mg Phenytoin Sodium (Dilantin -) 200 mg PO BID [facility] Last Admin: 01/26/19 09:43 Dose: 200 mg Spironolactone (Aldactone -) 50 mg PO DAILY [facility] Last Admin: 01/26/19 09:44 Dose: 50 mg - Objective Vital Signs: Vital Signs Temperature 98.3 F 01/26/19 17:30 Pulse Rate 97 H 01/26/19 17:30 Respiratory Rate 18 01/26/19 17:30 Blood Pressure 147/91 01/26/19 17:30 O2 Sat by Pulse Oximetry (%) 95 01/26/19 09:00 Constitutional: Yes: Obese Neck: Yes: WNL, Supple Cardiovascular: Yes: WNL, Regular Rate and Rhythm Respiratory: Yes: WNL, Regular, CTA Bilaterally Gastrointestinal: Yes: WNL, Normal Bowel Sounds, Soft Edema: LLE: Trace, RLE: Trace Labs: CBC, BMP 01/26/19 06:05 01/25/19 05:30 INR, PTT INR 1.00 (0.83-1.09) 01/14/19 13:50 Problem List - Problems (1) Sepsis Assessment/Plan: VRE UTI Cont linezolid Code(s): A41.9 - SEPSIS, UNSPECIFIED ORGANISM (2) Renal failure Assessment/Plan: Pt await [facility] consult for access Code(s): N19 - UNSPECIFIED KIDNEY FAILURE Qualifiers: Renal failure chronicity: unspecified chronicity Qualified Code(s): N19 - Unspecified kidney failure (3) Acute on chronic diastolic CHF (congestive heart failure) Assessment/Plan: Cont aldactone Code(s): I50.33 - ACUTE ON CHRONIC DIASTOLIC (CONGESTIVE) HEART FAILURE (4) Anemia Assessment/Plan: Cont ferrous sulfate Code(s): D64.9 - ANEMIA, UNSPECIFIED Qualifiers: Anemia type: unspecified type Qualified Code(s): D64.9 - Anemia, unspecified (5) Hypercholesterolemia Code(s): E78.00 - PURE HYPERCHOLESTEROLEMIA, UNSPECIFIED (6) PAF (paroxysmal atrial fibrillation) Code(s): I48.0 - PAROXYSMAL ATRIAL FIBRILLATION (7) Seizures Assessment/Plan: Cont phenytoin Code(s): R56.9 - UNSPECIFIED CONVULSIONS
[2019-01-26] MEDS: ATORVASTATIN CA 40 MG TABLET (FP) PO SCH (21:42)
[2019-01-27] MEDS: ACETAMINOPHEN 325 MG TABLET (FP) PO PRN (05:45)
[2019-01-27 06:20] LABS: ALBUMIN 1.3 g/dl (3.4-5.0); BILIRUBIN,TOTAL 0.2 mg/dL (0.2-1); BLOOD UREA NITROGEN 14.7 mg/dL (7-18); CALCIUM 7.2 mg/dL (8.5-10.1); CREATININE 4.6 mg/dL (0.55-1.3); POTASSIUM 3.2 mmol/L (3.5-5.1); TOT PROT 4.5 g/dl (6.4-8.2)
[2019-01-27] MEDS: hydrALAZINE HCL 25 MG TABLET (FP) PO SCH ×3 (06:21→21:17)
[2019-01-27] MEDS: METOPROLOL TARTRATE 50 MG TABLET (FP) PO SCH ×3 (06:21→21:18)
[2019-01-27 08:40] LABS: HEMATOCRIT 29.4 % (32.4-45.2); HEMOGLOBIN 9.6 GM/dL (10.7-15.3); MCHC 32.6 g/dl (32.0-36.0); MEAN CELL VOLUME 85.8 fl (80-96); MEAN PLT VOLUME 8.2 fl (7.5-11.1); PLATELET COUNT 331 K/MM3 (134-434); RBC 3.43 M/mm3 (3.60-5.2); WHITE BLOOD COUNT 11.7 K/mm3 (4.0-10.0)
--- NOTE | 2019-01-27 08:59 | PN ---
Progress Note, Physician - Current Medication List Current Medications: Active Medications Acetaminophen (Tylenol -) 650 mg PO Q6H PRN PRN Reason: FEVER Last Admin: 01/27/19 05:45 Dose: 650 mg Atorvastatin Calcium (Lipitor -) 40 mg PO HS [facility] Last Admin: 01/26/19 21:42 Dose: 40 mg Calcium Acetate (Phoslo -) 1,334 mg PO TIDCM [facility] Last Admin: 01/26/19 17:52 Dose: 1,334 mg Docusate Sodium (Colace -) 100 mg PO BID [facility] Last Admin: 01/26/19 21:42 Dose: Not Given Fentanyl (Sublimaze Injection -) 25 mcg IVPUSH [id number] PRN PRN Reason: PAIN-PACU ORDER X 4 DOSES ONLY Ferrous Sulfate (Feosol -) 325 mg PO BIDWM [facility] Last Admin: 01/26/19 17:52 Dose: 325 mg Guaifenesin (Robitussin -) 10 ml PO Q6H PRN PRN Reason: COUGH Last Admin: 01/15/19 11:31 Dose: 10 ml Heparin Sodium (Porcine) (Heparin -) 1,000 unit IVPUSH PRN PRN PRN Reason: Heparin Heparin Sodium (Porcine) (Heparin -) 5,000 unit IVPUSH PRN PRN PRN Reason: Heparin Hydralazine HCl (Apresoline -) 50 mg PO TID [facility] Last Admin: 01/27/19 06:21 Dose: 50 mg Heparin Sodium/Dextrose (Heparin Infusion -) 25,000 units in 500 mls @ 20 mls/ hr IVPB TITR [facility]; Protocol Last Admin: 01/26/19 17:55 Dose: 1,000 units/hr, 20 mls/hr Sodium Chloride (Normal Saline -) 250 mls @ 3,000 mls/hr IV PRN PRN PRN Reason: Hypotension during Dialysis Stop: 01/26/19 10:53 Linezolid (Zyvox (Restricted To Id) -) 600 mg PO BID [facility] Last Admin: 01/26/19 21:42 Dose: 600 mg Losartan Potassium (Cozaar -) 100 mg PO DAILY [facility] Last Admin: 01/26/19 09:43 Dose: 100 mg Metoprolol Tartrate (Lopressor -) 50 mg PO TID [facility] Last Admin: 01/27/19 06:21 Dose: 50 mg Nifedipine (Procardia Xl -) 90 mg PO DAILY [facility] Last Admin: 01/26/19 09:43 Dose: 90 mg Ondansetron HCl (Zofran Injection) 4 mg IVPUSH Q6H PRN PRN Reason: NAUSEA AND/OR VOMITING Pantoprazole Sodium (Protonix -) 40 mg PO DAILY [facility] Last Admin: 01/26/19 09:44 Dose: 40 mg Phenytoin Sodium (Dilantin -) 200 mg PO BID [facility] Last Admin: 01/26/19 21:42 Dose: 200 mg Spironolactone (Aldactone -) 50 mg PO DAILY [facility] Last Admin: 01/26/19 09:44 Dose: 50 mg - Objective Vital Signs: Vital Signs Temperature 98.2 F 01/27/19 06:00 Pulse Rate 88 01/27/19 08:00 Respiratory Rate 14 01/27/19 08:00 Blood Pressure 169/103 H 01/27/19 08:00 O2 Sat by Pulse Oximetry (%) 93 L 01/26/19 21:00 Eyes: Yes: WNL, Conjunctiva Clear, EOM Intact HENT: Yes: WNL, Atraumatic, Normocephalic Neck: Yes: WNL, Supple, Trachea Midline Cardiovascular: Yes: WNL, Regular Rate and Rhythm Respiratory: Yes: WNL, Regular, CTA Bilaterally Gastrointestinal: Yes: WNL, Normal Bowel Sounds Genitourinary: Yes: WNL Musculoskeletal: Yes: WNL Extremities: Yes: WNL Edema: No Integumentary: Yes: WNL Neurological: Yes: WNL, Alert, Oriented ...Motor Strength: WNL Psychiatric: Yes: WNL Labs: CBC, BMP 01/27/19 05:35 01/27/19 05:35 INR, PTT INR 1.00 (0.83-1.09) 01/14/19 13:50 Assessment/Plan - Problems (1) Acute on chronic diastolic CHF (congestive heart failure) Assessment/Plan: On labetolol, nifedipine, losartan, hydralazine, and spironolactone. F/u BUN/Cr, electrolytes, daily wt, Is and Os. Code(s): I50.33 - ACUTE ON CHRONIC DIASTOLIC (CONGESTIVE) HEART FAILURE (2) Anemia Assessment/Plan: on iron supplements. Now on IV heparin (PAF). F/u stool quaiac; f/u Hb. Code(s): D64.9 - ANEMIA, UNSPECIFIED Qualifiers: Anemia type: unspecified type Qualified Code(s): D64.9 - Anemia, unspecified (3) Hypercholesterolemia Assessment/Plan: on atorvastatin; increase dose to keep LDL < 70 mg/dl. Code(s): E78.00 - PURE HYPERCHOLESTEROLEMIA, UNSPECIFIED (4) Cigarette nicotine dependence Code(s): F17.210 - NICOTINE DEPENDENCE, CIGARETTES, UNCOMPLICATED (5) [place]er cardiac risk >20% in next 10 years Assessment/Plan: stress MIBI when stable, if not done recently. Pt's body weight/habitus may make this problematic. Code(s): Z91.89 - OTH PERSONAL RISK FACTORS, NOT ELSEWHERE CLASSIFIED (6) Renal failure Assessment/Plan: ECHO today: normal LVEF; normal wall motion. TNI < 0.02 x 3. EKG: NSR; no acute STT changes. From a cardiac perspective, pt was cleared to undergo surgery for AV fistula ( canceled due to development of PAF prior to surgery, after being given Versed). Code(s): N19 - UNSPECIFIED KIDNEY FAILURE Qualifiers: Renal failure chronicity: unspecified chronicity Qualified Code(s): N19 - Unspecified kidney failure (7) Hypertensive emergency Assessment/Plan: On labetolol, nifedipine, losartan, spironolactone, and hydralazine. On hemodialysis. Changed from labetolol to metoprolol due to development of AF with RVR. Code(s): I16.1 - HYPERTENSIVE EMERGENCY (8) Lower extremity edema Code(s): R60.0 - LOCALIZED EDEMA (9) Seizures Code(s): R56.9 - UNSPECIFIED CONVULSIONS (10) Osteoarthritis, knee Assessment/Plan: left knee OA Code(s): M17.10 - UNILATERAL PRIMARY OSTEOARTHRITIS, UNSPECIFIED KNEE (11) PAF (paroxysmal atrial fibrillation) Assessment/Plan: Pt developed PAF yesterday after begin given Versed; surgery for AV fistula was cancelled. ECHO: normal LVEF; mild LAE. (Pt denies hx of AF, but says, a few nights ago, for the first time, she had sudden onset of palpitations that lasted for hours; she did not inform staff at the time). Labetolol was changed to metoprolol tartrate 50 mg tid; she has now converted to NSR. Continue IV heparin for anticoagulation (if surgery is postponed for several days, can convert to DOAC). Keep K+ 4-4.5, Mg 2-2.4, PO4 2.5-4.9. Code(s): I48.0 - PAROXYSMAL ATRIAL FIBRILLATION (12) Hypokalemia Assessment/Plan: see under "PAF". Code(s): E87.6 - HYPOKALEMIA cc time spent 37 min
[2019-01-27] MEDS ORDERED: PT OWN MED DRAWER 7, Y5N ONE ×2 (09:06→21:16)
[2019-01-27] MEDS: HEPARIN INFUSION - 25,000 UNITS/500 ML INFUS.BAG IVPB SCH (09:07)
[2019-01-27] MEDS: CALCIUM ACETATE 667 MG CAPSULE (FP) PO SCH ×3 (09:09→16:45)
[2019-01-27] MEDS: FERROUS SO4 325 MG TABLET (FP) PO SCH ×2 (09:09→16:45)
[2019-01-27] MEDS: LOSARTAN POTASSIUM 50 MG TABLET (FP) PO SCH (09:10)
[2019-01-27] MEDS: PHENYTOIN NA EXTENDED 100 MG CAPSULE (FP) PO SCH ×2 (09:10→21:17)
[2019-01-27] MEDS: SPIRONOLACTONE 25 MG TABLET (FP) PO SCH (09:10)
[2019-01-27] MEDS: NIFEdipine E.R. 90 MG TABLET (FP) PO SCH (09:11)
[2019-01-27] MEDS: PANTOPRAZOLE 40 MG TABLET (FP) PO SCH (09:11)
[2019-01-27] MEDS: LINEZOLID 600 MG TABLET (RESTRICTED TO ID) PO SCH ×2 (09:12→21:24)
[2019-01-27] MEDS: DOCUSATE SODIUM 100 MG CAPSULE (FP) PO SCH ×2 (09:18→21:17)
--- NOTE | 2019-01-27 10:07 | PN ---
Progress Note (short form) - Note Progress Note: 58 yo female currently being treated for VRE UTI w/ Linzolid. She was scheduled for Permacath insertion 01/23/19 but during sedation (received Versed) and went into PAF with RVR (> 150). Awaiting Medical and Cardio clearance before proceeding with PC. Vascular Surgery is on stand-by Problem List - Problems (1) Renal failure Code(s): N19 - UNSPECIFIED KIDNEY FAILURE Qualifiers: Renal failure chronicity: unspecified chronicity Qualified Code(s): N19 - Unspecified kidney failure (2) Acute on chronic diastolic CHF (congestive heart failure) Code(s): I50.33 - ACUTE ON CHRONIC DIASTOLIC (CONGESTIVE) HEART FAILURE (3) Body mass index (BMI) of 40.1 to 44.9 in adult Code(s): Z68.41 - BODY MASS INDEX (BMI) 40.0-44.9, ADULT
[2019-01-27] MEDS ORDERED: POTASSIUM CHLORIDE TABS 20 MEQ TABLET.ER (FP) PO ONE (13:26)
--- NOTE | 2019-01-27 13:26 | PN ---
Progress Note, Physician History of Present Illness: Pt seen and examined at bedside. She is awake and alert. She denies chest pain or shortness of breath. - Current Medication List Current Medications: Active Medications Acetaminophen (Tylenol -) 650 mg PO Q6H PRN PRN Reason: FEVER Last Admin: 01/27/19 05:45 Dose: 650 mg Atorvastatin Calcium (Lipitor -) 40 mg PO HS [facility] Last Admin: 01/26/19 21:42 Dose: 40 mg Calcium Acetate (Phoslo -) 1,334 mg PO TIDCM [facility] Last Admin: 01/27/19 09:09 Dose: 1,334 mg Docusate Sodium (Colace -) 100 mg PO BID [facility] Last Admin: 01/27/19 09:18 Dose: Not Given Fentanyl (Sublimaze Injection -) 25 mcg IVPUSH [id number] PRN PRN Reason: PAIN-PACU ORDER X 4 DOSES ONLY Ferrous Sulfate (Feosol -) 325 mg PO BIDWM [facility] Last Admin: 01/27/19 09:09 Dose: 325 mg Guaifenesin (Robitussin -) 10 ml PO Q6H PRN PRN Reason: COUGH Last Admin: 01/15/19 11:31 Dose: 10 ml Heparin Sodium (Porcine) (Heparin -) 1,000 unit IVPUSH PRN PRN PRN Reason: Heparin Heparin Sodium (Porcine) (Heparin -) 5,000 unit IVPUSH PRN PRN PRN Reason: Heparin Hydralazine HCl (Apresoline -) 50 mg PO TID [facility] Last Admin: 01/27/19 06:21 Dose: 50 mg Heparin Sodium/Dextrose (Heparin Infusion -) 25,000 units in 500 mls @ 20 mls/ hr IVPB TITR [facility]; Protocol Last Admin: 01/27/19 09:07 Dose: 1,000 units/hr, 20 mls/hr Sodium Chloride (Normal Saline -) 250 mls @ 3,000 mls/hr IV PRN PRN PRN Reason: Hypotension during Dialysis Stop: 01/26/19 10:53 Linezolid (Zyvox (Restricted To Id) -) 600 mg PO BID [facility] Last Admin: 01/27/19 09:12 Dose: 600 mg Losartan Potassium (Cozaar -) 100 mg PO DAILY [facility] Last Admin: 01/27/19 09:10 Dose: 100 mg Metoprolol Tartrate (Lopressor -) 50 mg PO TID [facility] Last Admin: 01/27/19 06:21 Dose: 50 mg Nifedipine (Procardia Xl -) 90 mg PO DAILY [facility] Last Admin: 01/27/19 09:11 Dose: 90 mg Ondansetron HCl (Zofran Injection) 4 mg IVPUSH Q6H PRN PRN Reason: NAUSEA AND/OR VOMITING Pantoprazole Sodium (Protonix -) 40 mg PO DAILY [facility] Last Admin: 01/27/19 09:11 Dose: 40 mg Phenytoin Sodium (Dilantin -) 200 mg PO BID [facility] Last Admin: 01/27/19 09:10 Dose: 200 mg Spironolactone (Aldactone -) 50 mg PO DAILY [facility] Last Admin: 01/27/19 09:10 Dose: 50 mg - Objective Vital Signs: Vital Signs Temperature 98.2 F 01/27/19 06:00 Pulse Rate 78 01/27/19 09:20 Respiratory Rate 16 01/27/19 09:20 Blood Pressure 131/88 01/27/19 09:20 O2 Sat by Pulse Oximetry (%) 100 01/27/19 09:00 Constitutional: Yes: Calm Eyes: Yes: Conjunctiva Clear HENT: Yes: Atraumatic Neck: Yes: Supple Cardiovascular: Yes: S1, S2 Respiratory: Yes: CTA Bilaterally Gastrointestinal: Yes: Soft, Abdomen, Obese Genitourinary: Yes: WNL Musculoskeletal: Yes: WNL Edema: Yes Edema: LLE: Trace, RLE: Trace Integumentary: Yes: WNL Neurological: Yes: Oriented Psychiatric: Yes: Oriented Labs: CBC, BMP 01/27/19 05:35 01/27/19 05:35 INR, PTT INR 1.00 (0.83-1.09) 01/14/19 13:50 Problem List - Problems (1) Anemia Code(s): D64.9 - ANEMIA, UNSPECIFIED Qualifiers: Anemia type: unspecified type Qualified Code(s): D64.9 - Anemia, unspecified (2) Hyperkalemia Code(s): E87.5 - HYPERKALEMIA (3) Renal failure Code(s): N19 - UNSPECIFIED KIDNEY FAILURE Qualifiers: Renal failure chronicity: unspecified chronicity Qualified Code(s): N19 - Unspecified kidney failure Assessment/Plan Current Medications Generic Name Dose Route Start Last Admin Trade Name Freq PRN Reason Stop Dose Admin Acetaminophen 650 mg 01/15/19 21:22 01/27/19 05:45 Tylenol - PO 650 mg Q6H PRN Administration FEVER Atorvastatin Calcium 40 mg 01/10/19 22:00 01/26/19 21:42 Lipitor - PO 40 mg HS [facility] Administration Calcium Acetate 1,334 mg 01/16/19 01:17 01/27/19 09:09 Phoslo - PO 1,334 mg TIDCM [facility] Administration Docusate Sodium 100 mg 01/10/19 22:00 01/27/19 09:18 Colace - PO Not Given BID [facility] Fentanyl 25 mcg 01/23/19 13:01 Sublimaze Injection - IVPUSH [id number] PRN PAIN-PACU ORDER X 4 DOSES ONLY Ferrous Sulfate 325 mg 01/11/19 08:00 01/27/19 09:09 Feosol - PO 325 mg BIDWM [facility] Administration Guaifenesin 10 ml 01/13/19 15:00 01/15/19 11:31 Robitussin - PO 10 ml Q6H PRN Administration COUGH Heparin Sodium (Porcine) 1,000 unit 01/23/19 18:24 Heparin - IVPUSH PRN PRN Heparin Heparin Sodium (Porcine) 5,000 unit 01/23/19 18:24 Heparin - IVPUSH PRN PRN Heparin Hydralazine HCl 50 mg 01/22/19 12:03 01/27/19 06:21 Apresoline - PO 50 mg TID [facility] Administration Heparin Sodium/Dextrose 25,000 units in 500 mls @ 20 mls/hr 01/23/19 18:30 09:07 Heparin Infusion - IVPB 1,000 units/hr TITR [facility] 20 mls/hr Administration Protocol 1,000 UNITS/HR Sodium Chloride 250 mls @ 3,000 mls/hr 01/25/19 10:53 Normal Saline - IV 01/26/19 10:53 PRN PRN Hypotension during Dialysis Linezolid 600 mg 01/22/19 10:00 01/27/19 09:12 Zyvox (Restricted To Id) - PO 600 mg BID [facility] Administration Losartan Potassium 100 mg 01/18/19 10:00 01/27/19 09:10 Cozaar - PO 100 mg DAILY [facility] Administration Metoprolol Tartrate 50 mg 01/23/19 22:00 01/27/19 06:21 Lopressor - PO 50 mg TID [facility] Administration Nifedipine 90 mg 01/20/19 12:30 01/27/19 09:11 Procardia Xl - PO 90 mg DAILY [facility] Administration Ondansetron HCl 4 mg 01/23/19 13:01 Zofran Injection IVPUSH Q6H PRN NAUSEA AND/OR VOMITING Pantoprazole Sodium 40 mg 01/11/19 10:00 01/27/19 09:11 Protonix - PO 40 mg DAILY [facility] Administration Phenytoin Sodium 200 mg 01/10/19 22:00 01/27/19 09:10 Dilantin - PO 200 mg BID [facility] Administration Spironolactone 50 mg 01/21/19 16:00 01/27/19 09:10 Aldactone - PO 50 mg DAILY [facility] Administration Impression 1. SOHAIL 2. lower ext edema 3. anemia 4. HTN 5. arthritis 6. nephrotic range proteinura 7. obesity 8. positive hep c virus on last admission 9. CKD 10. ESRD 11. hypokalemia 12. a-fib Plan - replace potassium - monitor lytes - vascular for access - cardio follow up - bp better controlled - vascular follow up for access - 3 k bath - renal diet
--- NOTE | 2019-01-27 15:31 | PN ---
Progress Note, Physician - Current Medication List Current Medications: Active Medications Acetaminophen (Tylenol -) 650 mg PO Q6H PRN PRN Reason: FEVER Last Admin: 01/27/19 05:45 Dose: 650 mg Atorvastatin Calcium (Lipitor -) 40 mg PO HS [facility] Last Admin: 01/26/19 21:42 Dose: 40 mg Calcium Acetate (Phoslo -) 1,334 mg PO TIDCM [facility] Last Admin: 01/27/19 13:53 Dose: 1,334 mg Docusate Sodium (Colace -) 100 mg PO BID [facility] Last Admin: 01/27/19 09:18 Dose: Not Given Fentanyl (Sublimaze Injection -) 25 mcg IVPUSH [id number] PRN PRN Reason: PAIN-PACU ORDER X 4 DOSES ONLY Ferrous Sulfate (Feosol -) 325 mg PO BIDWM [facility] Last Admin: 01/27/19 09:09 Dose: 325 mg Guaifenesin (Robitussin -) 10 ml PO Q6H PRN PRN Reason: COUGH Last Admin: 01/15/19 11:31 Dose: 10 ml Heparin Sodium (Porcine) (Heparin -) 1,000 unit IVPUSH PRN PRN PRN Reason: Heparin Heparin Sodium (Porcine) (Heparin -) 5,000 unit IVPUSH PRN PRN PRN Reason: Heparin Hydralazine HCl (Apresoline -) 50 mg PO TID [facility] Last Admin: 01/27/19 13:53 Dose: 50 mg Heparin Sodium/Dextrose (Heparin Infusion -) 25,000 units in 500 mls @ 20 mls/ hr IVPB TITR [facility]; Protocol Last Admin: 01/27/19 09:07 Dose: 1,000 units/hr, 20 mls/hr Sodium Chloride (Normal Saline -) 250 mls @ 3,000 mls/hr IV PRN PRN PRN Reason: Hypotension during Dialysis Stop: 01/26/19 10:53 Sodium Chloride (Normal Saline -) 250 mls @ 3,000 mls/hr IV PRN PRN PRN Reason: Hypotension during Dialysis Stop: 01/28/19 13:29 Linezolid (Zyvox (Restricted To Id) -) 600 mg PO BID [facility] Last Admin: 01/27/19 09:12 Dose: 600 mg Losartan Potassium (Cozaar -) 100 mg PO DAILY [facility] Last Admin: 01/27/19 09:10 Dose: 100 mg Metoprolol Tartrate (Lopressor -) 50 mg PO TID [facility] Last Admin: 01/27/19 13:53 Dose: 50 mg Nifedipine (Procardia Xl -) 90 mg PO DAILY [facility] Last Admin: 01/27/19 09:11 Dose: 90 mg Ondansetron HCl (Zofran Injection) 4 mg IVPUSH Q6H PRN PRN Reason: NAUSEA AND/OR VOMITING Pantoprazole Sodium (Protonix -) 40 mg PO DAILY [facility] Last Admin: 01/27/19 09:11 Dose: 40 mg Phenytoin Sodium (Dilantin -) 200 mg PO BID [facility] Last Admin: 01/27/19 09:10 Dose: 200 mg Spironolactone (Aldactone -) 50 mg PO DAILY [facility] Last Admin: 01/27/19 09:10 Dose: 50 mg - Objective Vital Signs: Vital Signs Temperature 98.2 F 01/27/19 06:00 Pulse Rate 86 01/27/19 12:00 Respiratory Rate 18 01/27/19 12:00 Blood Pressure 139/90 01/27/19 12:00 O2 Sat by Pulse Oximetry (%) 100 01/27/19 09:00 Labs: CBC, BMP 01/27/19 05:35 01/27/19 05:35 INR, PTT INR 1.00 (0.83-1.09) 01/14/19 13:50
--- NOTE | 2019-01-27 16:39 | PN ---
Progress Note, Physician - Current Medication List Current Medications: Active Medications Acetaminophen (Tylenol -) 650 mg PO Q6H PRN PRN Reason: FEVER Last Admin: 01/27/19 05:45 Dose: 650 mg Atorvastatin Calcium (Lipitor -) 40 mg PO HS [facility] Last Admin: 01/26/19 21:42 Dose: 40 mg Calcium Acetate (Phoslo -) 1,334 mg PO TIDCM [facility] Last Admin: 01/27/19 13:53 Dose: 1,334 mg Docusate Sodium (Colace -) 100 mg PO BID [facility] Last Admin: 01/27/19 09:18 Dose: Not Given Fentanyl (Sublimaze Injection -) 25 mcg IVPUSH [id number] PRN PRN Reason: PAIN-PACU ORDER X 4 DOSES ONLY Ferrous Sulfate (Feosol -) 325 mg PO BIDWM [facility] Last Admin: 01/27/19 09:09 Dose: 325 mg Guaifenesin (Robitussin -) 10 ml PO Q6H PRN PRN Reason: COUGH Last Admin: 01/15/19 11:31 Dose: 10 ml Heparin Sodium (Porcine) (Heparin -) 1,000 unit IVPUSH PRN PRN PRN Reason: Heparin Heparin Sodium (Porcine) (Heparin -) 5,000 unit IVPUSH PRN PRN PRN Reason: Heparin Hydralazine HCl (Apresoline -) 50 mg PO TID [facility] Last Admin: 01/27/19 13:53 Dose: 50 mg Heparin Sodium/Dextrose (Heparin Infusion -) 25,000 units in 500 mls @ 20 mls/ hr IVPB TITR [facility]; Protocol Last Admin: 01/27/19 09:07 Dose: 1,000 units/hr, 20 mls/hr Sodium Chloride (Normal Saline -) 250 mls @ 3,000 mls/hr IV PRN PRN PRN Reason: Hypotension during Dialysis Stop: 01/26/19 10:53 Sodium Chloride (Normal Saline -) 250 mls @ 3,000 mls/hr IV PRN PRN PRN Reason: Hypotension during Dialysis Stop: 01/28/19 13:29 Linezolid (Zyvox (Restricted To Id) -) 600 mg PO BID [facility] Last Admin: 01/27/19 09:12 Dose: 600 mg Losartan Potassium (Cozaar -) 100 mg PO DAILY [facility] Last Admin: 01/27/19 09:10 Dose: 100 mg Metoprolol Tartrate (Lopressor -) 50 mg PO TID [facility] Last Admin: 01/27/19 13:53 Dose: 50 mg Nifedipine (Procardia Xl -) 90 mg PO DAILY [facility] Last Admin: 01/27/19 09:11 Dose: 90 mg Ondansetron HCl (Zofran Injection) 4 mg IVPUSH Q6H PRN PRN Reason: NAUSEA AND/OR VOMITING Pantoprazole Sodium (Protonix -) 40 mg PO DAILY [facility] Last Admin: 01/27/19 09:11 Dose: 40 mg Phenytoin Sodium (Dilantin -) 200 mg PO BID [facility] Last Admin: 01/27/19 09:10 Dose: 200 mg Spironolactone (Aldactone -) 50 mg PO DAILY [facility] Last Admin: 01/27/19 09:10 Dose: 50 mg - Objective Vital Signs: Vital Signs Temperature 98.2 F 01/27/19 06:00 Pulse Rate 86 01/27/19 12:00 Respiratory Rate 18 01/27/19 12:00 Blood Pressure 139/90 01/27/19 12:00 O2 Sat by Pulse Oximetry (%) 100 01/27/19 09:00 Constitutional: Yes: No Distress HENT: Yes: Atraumatic Neck: Yes: Supple Cardiovascular: Yes: Regular Rate and Rhythm Respiratory: Yes: CTA Bilaterally Gastrointestinal: Yes: Normal Bowel Sounds Extremities: Yes: WNL Edema: No Peripheral Pulses WNL: Yes Neurological: Yes: Alert, Oriented Labs: CBC, BMP 01/27/19 05:35 01/27/19 05:35 INR, PTT INR 1.00 (0.83-1.09) 01/14/19 13:50 Problem List - Problems (1) Hyperkalemia Assessment/Plan: no k is low monitor Code(s): E87.5 - HYPERKALEMIA (2) Renal failure Assessment/Plan: ON HD for perma cath when stale Code(s): N19 - UNSPECIFIED KIDNEY FAILURE Qualifiers: Renal failure chronicity: unspecified chronicity Qualified Code(s): N19 - Unspecified kidney failure (3) Seizure disorder Code(s): G40.909 - EPILEPSY, UNSP, NOT INTRACTABLE, WITHOUT STATUS EPILEPTICUS (4) Anemia Assessment/Plan: stable s/p blood transfusion Code(s): D64.9 - ANEMIA, UNSPECIFIED Qualifiers: Anemia type: unspecified type Qualified Code(s): D64.9 - Anemia, unspecified (5) Acute on chronic diastolic CHF (congestive heart failure) Code(s): I50.33 - ACUTE ON CHRONIC DIASTOLIC (CONGESTIVE) HEART FAILURE (6) Hypercholesterolemia Code(s): E78.00 - PURE HYPERCHOLESTEROLEMIA, UNSPECIFIED (7) Seizures Code(s): R56.9 - UNSPECIFIED CONVULSIONS (8) Sepsis Assessment/Plan: on abx for vre Code(s): A41.9 - SEPSIS, UNSPECIFIED ORGANISM
[2019-01-27] MEDS: ATORVASTATIN CA 40 MG TABLET (FP) PO SCH (21:18)
[2019-01-28 05:42] LABS: HEMATOCRIT 28.3 % (32.4-45.2); HEMOGLOBIN 9.6 GM/dL (10.7-15.3); MCHC 33.9 g/dl (32.0-36.0); MEAN CELL VOLUME 88.4 fl (80-96); MEAN PLT VOLUME 6.7 fl (7.5-11.1); RDW 14.6 % (11.6-15.6); WHITE BLOOD COUNT 9.5 K/mm3 (4.0-10.0)
[2019-01-28] MEDS: hydrALAZINE HCL 25 MG TABLET (FP) PO SCH ×3 (05:53→21:36)
[2019-01-28] MEDS: METOPROLOL TARTRATE 50 MG TABLET (FP) PO SCH (05:54)
[2019-01-28 06:08] LABS: ALBUMIN 1.3 g/dl (3.4-5.0); BILIRUBIN,DIRECT 0.1 mg/dL (0.0-0.2); BILIRUBIN,TOTAL 0.2 mg/dL (0.2-1); TOT PROT 4.7 g/dl (6.4-8.2)
[2019-01-28 06:24] LABS: PLATELET COUNT 378 K/MM3 (134-434)
[2019-01-28] MEDS: CALCIUM ACETATE 667 MG CAPSULE (FP) PO SCH ×3 (08:25→17:03)
[2019-01-28] MEDS: FERROUS SO4 325 MG TABLET (FP) PO SCH ×2 (08:25→17:03)
[2019-01-28] MEDS ORDERED: PT OWN MED DRAWER 7, Y5N ONE (10:08)
--- NOTE | 2019-01-28 10:52 | PN ---
Progress Note, Physician Chief Complaint: Pt alert and oriented; undergoing hemodialysis. No chest pain, dizziness.No palpitations. History of Present Illness: The patient is a 58 year old black female with a past medical history of HTN, copd chronic arthritis, and CVA (2017, 2018) anemia, CKD, diastolic chf, seizure disorder here today for evaluation of lower extremity edema. The patient reports that she has had 3 weeks of bilateral lower extremity edema which has been getting progressively worse. She also notes an intermittent productive cough of yellow sputum. today she was getting up from toilet and lost her balance, fell over. states she got tangled in pants trying to pull them up. Patient denies headache, lightheadedness. Denies fever, chills. Denies chest pain, shortness of breath. Denies nausea, vomiting, diarrhea, abdominal pain. Allergies: NKA Social history: Patient confirms tobacco use ( pack per day for the last 40 years). Denies illicit drugs or alcohol use. - Current Medication List Current Medications: Active Medications Acetaminophen (Tylenol -) 650 mg PO Q6H PRN PRN Reason: FEVER Last Admin: 01/27/19 05:45 Dose: 650 mg Atorvastatin Calcium (Lipitor -) 40 mg PO HS [facility] Last Admin: 01/27/19 21:18 Dose: 40 mg Calcium Acetate (Phoslo -) 1,334 mg PO TIDCM [facility] Last Admin: 01/28/19 08:25 Dose: Not Given Docusate Sodium (Colace -) 100 mg PO BID [facility] Last Admin: 01/27/19 21:17 Dose: 100 mg Fentanyl (Sublimaze Injection -) 25 mcg IVPUSH [id number] PRN PRN Reason: PAIN-PACU ORDER X 4 DOSES ONLY Ferrous Sulfate (Feosol -) 325 mg PO BIDWM [facility] Last Admin: 01/28/19 08:25 Dose: Not Given Guaifenesin (Robitussin -) 10 ml PO Q6H PRN PRN Reason: COUGH Last Admin: 01/15/19 11:31 Dose: 10 ml Heparin Sodium (Porcine) (Heparin -) 1,000 unit IVPUSH PRN PRN PRN Reason: Heparin Heparin Sodium (Porcine) (Heparin -) 5,000 unit IVPUSH PRN PRN PRN Reason: Heparin Hydralazine HCl (Apresoline -) 50 mg PO TID [facility] Last Admin: 01/28/19 05:53 Dose: Not Given Heparin Sodium/Dextrose (Heparin Infusion -) 25,000 units in 500 mls @ 20 mls/ hr IVPB TITR [facility]; Protocol Last Titration: 01/28/19 09:42 Dose: 1,000 units/hr, 20 mls/hr Sodium Chloride (Normal Saline -) 250 mls @ 3,000 mls/hr IV PRN PRN PRN Reason: Hypotension during Dialysis Stop: 01/26/19 10:53 Sodium Chloride (Normal Saline -) 250 mls @ 3,000 mls/hr IV PRN PRN PRN Reason: Hypotension during Dialysis Stop: 01/28/19 13:29 Linezolid (Zyvox (Restricted To Id) -) 600 mg PO BID [facility] Last Admin: 01/27/19 21:24 Dose: 600 mg Losartan Potassium (Cozaar -) 100 mg PO DAILY [facility] Last Admin: 01/27/19 09:10 Dose: 100 mg Metoprolol Tartrate (Lopressor -) 50 mg PO TID [facility] Last Admin: 01/28/19 05:54 Dose: Not Given Nifedipine (Procardia Xl -) 90 mg PO DAILY [facility] Last Admin: 01/27/19 09:11 Dose: 90 mg Ondansetron HCl (Zofran Injection) 4 mg IVPUSH Q6H PRN PRN Reason: NAUSEA AND/OR VOMITING Pantoprazole Sodium (Protonix -) 40 mg PO DAILY [facility] Last Admin: 01/27/19 09:11 Dose: 40 mg Phenytoin Sodium (Dilantin -) 200 mg PO BID [facility] Last Admin: 01/27/19 21:17 Dose: 200 mg Spironolactone (Aldactone -) 50 mg PO DAILY [facility] Last Admin: 01/27/19 09:10 Dose: 50 mg - Objective Vital Signs: Vital Signs Temperature 98.2 F 01/28/19 02:00 Pulse Rate 80 01/28/19 02:00 Respiratory Rate 20 01/28/19 02:00 Blood Pressure 161/94 01/28/19 02:00 O2 Sat by Pulse Oximetry (%) 98 01/27/19 20:43 Constitutional: Yes: Obese Eyes: Yes: WNL HENT: Yes: WNL Neck: Yes: Other (right Permacath) Cardiovascular: Yes: S1, S2, S4 Respiratory: Yes: Regular Gastrointestinal: Yes: Soft, Abdomen, Obese ...Rectal Exam: Yes: Deferred Genitourinary: No: Anuria Breast(s): Yes: WNL Musculoskeletal: Yes: Joint Stiffness Extremities: Yes: Cool Edema: Yes Edema: LLE: Trace, RLE: Trace Peripheral Pulses WNL: Yes Integumentary: Yes: Venous Stasis Changes Neurological: Yes: Alert, Oriented Psychiatric: Yes: Alert, Oriented Labs: CBC, BMP 01/28/19 05:15 01/27/19 05:35 INR, PTT INR 1.00 (0.83-1.09) 01/14/19 13:50 Abnormal Lab Results 01/28/19 01/28/19 01/28/19 05:15 05:15 05:15 RBC 3.20 L Hgb 9.6 L Hct 28.3 L MPV 6.7 L D PTT (Actin FS) 67.0 H Alkaline Phosphatase 132 H Total Protein 4.7 L Albumin 1.3 L - ....Imaging Other: Image Reviewed (telemetry: NSR; APCs) Problem List - Problems (1) Acute on chronic diastolic CHF (congestive heart failure) Assessment/Plan: On labetolol, nifedipine, losartan, hydralazine, and spironolactone. F/u BUN/Cr, electrolytes, daily wt, Is and Os. Code(s): I50.33 - ACUTE ON CHRONIC DIASTOLIC (CONGESTIVE) HEART FAILURE (2) Anemia Assessment/Plan: on iron supplements. Now on IV heparin (PAF). F/u stool quaiac; f/u Hb. Code(s): D64.9 - ANEMIA, UNSPECIFIED Qualifiers: Anemia type: unspecified type Qualified Code(s): D64.9 - Anemia, unspecified (3) Hypercholesterolemia Assessment/Plan: on atorvastatin; increase dose to keep LDL < 70 mg/dl. Code(s): E78.00 - PURE HYPERCHOLESTEROLEMIA, UNSPECIFIED (4) Cigarette nicotine dependence Code(s): F17.210 - NICOTINE DEPENDENCE, CIGARETTES, UNCOMPLICATED (5) [place] cardiac risk >20% in next 10 years Assessment/Plan: stress MIBI when stable, if not done recently. Pt's body weight/habitus may make this problematic. Code(s): Z91.89 - OTH PERSONAL RISK FACTORS, NOT ELSEWHERE CLASSIFIED (6) Renal failure Assessment/Plan: On hemodialysis. PAF-->sinus rhythm. FOr AV fistula (canceled when pt went into AF; now in NSR on metoprolol tartrate , and IV heparin for AC). Code(s): N19 - UNSPECIFIED KIDNEY FAILURE Qualifiers: Renal failure chronicity: unspecified chronicity Qualified Code(s): N19 - Unspecified kidney failure (7) Hypertensive emergency Code(s): I16.1 - HYPERTENSIVE EMERGENCY (8) Lower extremity edema Code(s): R60.0 - LOCALIZED EDEMA (9) Seizures Code(s): R56.9 - UNSPECIFIED CONVULSIONS (10) Osteoarthritis, knee Code(s): M17.10 - UNILATERAL PRIMARY OSTEOARTHRITIS, UNSPECIFIED KNEE (11) PAF (paroxysmal atrial fibrillation) Assessment/Plan: Pt developed PAF yesterday after begin given Versed; surgery for AV fistula was cancelled. ECHO: normal LVEF; mild LAE. (Pt denies hx of AF, but says, a few nights ago, for the first time, she had sudden onset of palpitations that lasted for hours; she did not inform staff at the time). Labetolol was changed to metoprolol tartrate (now increased to 75 mg tid for HR and BP); she converted to NSR. Continue IV heparin for anticoagulation (if AV fistula surgery is postponed for several days, can convert to DOAC). Keep K+ 4-4.5, Mg 2-2.4, PO4 2.5-4.9. Code(s): I48.0 - PAROXYSMAL ATRIAL FIBRILLATION (12) Hypokalemia Code(s): E87.6 - HYPOKALEMIA
[2019-01-28] MEDS ORDERED: SODIUM CHLORIDE 250 ML IV PRN ×2 (10:53→14:31)
[2019-01-28] MEDS: LOSARTAN POTASSIUM 50 MG TABLET (FP) PO SCH (11:55)
[2019-01-28] MEDS: NIFEdipine E.R. 90 MG TABLET (FP) PO SCH (11:56)
[2019-01-28] MEDS: PANTOPRAZOLE 40 MG TABLET (FP) PO SCH (11:56)
[2019-01-28] MEDS: DOCUSATE SODIUM 100 MG CAPSULE (FP) PO SCH (11:57)
[2019-01-28] MEDS: SPIRONOLACTONE 25 MG TABLET (FP) PO SCH (11:59)
[2019-01-28] MEDS: PHENYTOIN NA EXTENDED 100 MG CAPSULE (FP) PO SCH ×2 (12:18→21:35)
[2019-01-28 12:29] LABS: BLOOD UREA NITROGEN 15.8 mg/dL (7-18); CALCIUM 7.2 mg/dL (8.5-10.1); CREATININE 5.1 mg/dL (0.55-1.3); MAGNESIUM 1.7 mg/dL (1.8-2.4); POTASSIUM 3.4 mmol/L (3.5-5.1)
[2019-01-28] MEDS ORDERED: POTASSIUM CHLORIDE TABS 20 MEQ TABLET.ER (FP) PO ONE (12:33)
--- NOTE | 2019-01-28 12:36 | PN ---
Progress Note, Physician History of Present Illness: Pt seen and examined at bedside. She is awake and alert. She is tolerating HD. - Current Medication List Current Medications: Active Medications Acetaminophen (Tylenol -) 650 mg PO Q6H PRN PRN Reason: FEVER Last Admin: 01/27/19 05:45 Dose: 650 mg Atorvastatin Calcium (Lipitor -) 40 mg PO HS [facility] Last Admin: 01/27/19 21:18 Dose: 40 mg Calcium Acetate (Phoslo -) 1,334 mg PO TIDCM [facility] Last Admin: 01/28/19 11:55 Dose: 1,334 mg Docusate Sodium (Colace -) 100 mg PO BID [facility] Last Admin: 01/28/19 11:57 Dose: 100 mg Fentanyl (Sublimaze Injection -) 25 mcg IVPUSH [id number] PRN PRN Reason: PAIN-PACU ORDER X 4 DOSES ONLY Ferrous Sulfate (Feosol -) 325 mg PO BIDWM [facility] Last Admin: 01/28/19 08:25 Dose: Not Given Guaifenesin (Robitussin -) 10 ml PO Q6H PRN PRN Reason: COUGH Last Admin: 01/15/19 11:31 Dose: 10 ml Heparin Sodium (Porcine) (Heparin -) 1,000 unit IVPUSH PRN PRN PRN Reason: Heparin Heparin Sodium (Porcine) (Heparin -) 5,000 unit IVPUSH PRN PRN PRN Reason: Heparin Hydralazine HCl (Apresoline -) 50 mg PO TID [facility] Last Admin: 01/28/19 05:53 Dose: Not Given Heparin Sodium/Dextrose (Heparin Infusion -) 25,000 units in 500 mls @ 20 mls/ hr IVPB TITR [facility]; Protocol Last Titration: 01/28/19 09:42 Dose: 1,000 units/hr, 20 mls/hr Sodium Chloride (Normal Saline -) 250 mls @ 3,000 mls/hr IV PRN PRN PRN Reason: Hypotension during Dialysis Stop: 01/26/19 10:53 Sodium Chloride (Normal Saline -) 250 mls @ 3,000 mls/hr IV PRN PRN PRN Reason: Hypotension during Dialysis Stop: 01/28/19 13:29 Linezolid (Zyvox (Restricted To Id) -) 600 mg PO BID [facility] Last Admin: 01/27/19 21:24 Dose: 600 mg Losartan Potassium (Cozaar -) 100 mg PO DAILY [facility] Last Admin: 01/28/19 11:55 Dose: 100 mg Metoprolol Tartrate (Lopressor -) 75 mg PO TID [facility] Nifedipine (Procardia Xl -) 90 mg PO DAILY [facility] Last Admin: 01/28/19 11:56 Dose: 90 mg Ondansetron HCl (Zofran Injection) 4 mg IVPUSH Q6H PRN PRN Reason: NAUSEA AND/OR VOMITING Pantoprazole Sodium (Protonix -) 40 mg PO DAILY [facility] Last Admin: 01/28/19 11:56 Dose: 40 mg Phenytoin Sodium (Dilantin -) 200 mg PO BID [facility] Last Admin: 01/28/19 12:18 Dose: 200 mg Spironolactone (Aldactone -) 50 mg PO DAILY [facility] Last Admin: 01/28/19 11:59 Dose: 50 mg - Objective Vital Signs: Vital Signs Temperature 98.2 F 01/28/19 02:00 Pulse Rate 87 01/28/19 11:45 Respiratory Rate 18 01/28/19 11:45 Blood Pressure 181/117 H 01/28/19 11:45 O2 Sat by Pulse Oximetry (%) 98 01/28/19 09:00 Constitutional: Yes: Calm Eyes: Yes: Conjunctiva Clear HENT: Yes: Atraumatic Neck: Yes: Supple Cardiovascular: Yes: S1, S2 Respiratory: Yes: CTA Bilaterally Gastrointestinal: Yes: Soft, Abdomen, Obese Genitourinary: Yes: WNL Musculoskeletal: Yes: WNL Edema: Yes Edema: LLE: Trace, RLE: Trace Neurological: Yes: Oriented Psychiatric: Yes: Oriented Labs: CBC, BMP 01/28/19 05:15 INR, PTT INR 1.00 (0.83-1.09) 01/14/19 13:50 Problem List - Problems (1) Anemia Code(s): D64.9 - ANEMIA, UNSPECIFIED Qualifiers: Anemia type: unspecified type Qualified Code(s): D64.9 - Anemia, unspecified (2) Hyperkalemia Code(s): E87.5 - HYPERKALEMIA (3) Renal failure Code(s): N19 - UNSPECIFIED KIDNEY FAILURE Qualifiers: Renal failure chronicity: unspecified chronicity Qualified Code(s): N19 - Unspecified kidney failure Assessment/Plan Current Medications Generic Name Dose Route Start Last Admin Trade Name Freq PRN Reason Stop Dose Admin Acetaminophen 650 mg 01/15/19 21:22 01/27/19 05:45 Tylenol - PO 650 mg Q6H PRN Administration FEVER Atorvastatin Calcium 40 mg 01/10/19 22:00 01/27/19 21:18 Lipitor - PO 40 mg HS [facility] Administration Calcium Acetate 1,334 mg 01/16/19 01:17 01/28/19 11:55 Phoslo - PO 1,334 mg TIDCM [facility] Administration Docusate Sodium 100 mg 01/10/19 22:00 01/28/19 11:57 Colace - PO 100 mg BID [facility] Administration Fentanyl 25 mcg 01/23/19 13:01 Sublimaze Injection - IVPUSH [id number] PRN PAIN-PACU ORDER X 4 DOSES ONLY Ferrous Sulfate 325 mg 01/11/19 08:00 01/28/19 08:25 Feosol - PO Not Given BIDWM [facility] Guaifenesin 10 ml 01/13/19 15:00 01/15/19 11:31 Robitussin - PO 10 ml Q6H PRN Administration COUGH Heparin Sodium (Porcine) 1,000 unit 01/23/19 18:24 Heparin - IVPUSH PRN PRN Heparin Heparin Sodium (Porcine) 5,000 unit 01/23/19 18:24 Heparin - IVPUSH PRN PRN Heparin Hydralazine HCl 50 mg 01/22/19 12:03 01/28/19 05:53 Apresoline - PO Not Given TID [facility] Heparin Sodium/Dextrose 25,000 units in 500 mls @ 20 mls/hr 01/23/19 18:30 09:42 Heparin Infusion - IVPB 1,000 units/hr TITR [facility] 20 mls/hr Titration Protocol 1,000 UNITS/HR Sodium Chloride 250 mls @ 3,000 mls/hr 01/25/19 10:53 Normal Saline - IV 01/26/19 10:53 PRN PRN Hypotension during Dialysis Sodium Chloride 250 mls @ 3,000 mls/hr 01/27/19 13:29 Normal Saline - IV 01/28/19 13:29 PRN PRN Hypotension during Dialysis Linezolid 600 mg 01/22/19 10:00 01/27/19 21:24 Zyvox (Restricted To Id) - PO 600 mg BID [facility] Administration Losartan Potassium 100 mg 01/18/19 10:00 01/28/19 11:55 Cozaar - PO 100 mg DAILY [facility] Administration Metoprolol Tartrate 75 mg 01/28/19 14:00 Lopressor - PO TID [facility] Nifedipine 90 mg 01/20/19 12:30 01/28/19 11:56 Procardia Xl - PO 90 mg DAILY [facility] Administration Ondansetron HCl 4 mg 01/23/19 13:01 Zofran Injection IVPUSH Q6H PRN NAUSEA AND/OR VOMITING Pantoprazole Sodium 40 mg 01/11/19 10:00 01/28/19 11:56 Protonix - PO 40 mg DAILY [facility] Administration Phenytoin Sodium 200 mg 01/10/19 22:00 01/28/19 12:18 Dilantin - PO 200 mg BID [facility] Administration Potassium Chloride 40 meq 01/28/19 12:33 K-Dur - PO 01/28/19 12:34 ONCE ONE Spironolactone 50 mg 01/21/19 16:00 01/28/19 11:59 Aldactone - PO 50 mg DAILY [facility] Administration Impression 1. SOHAIL 2. lower ext edema 3. anemia 4. HTN 5. arthritis 6. nephrotic range proteinura 7. obesity 8. positive hep c virus on last admission 9. CKD 10. ESRD 11. hypokalemia 12. a-fib Plan - HD today - 3 k bath - replace potassium - replace mag - vascular for permacath - pt still on heparin drip - give bp meds, they were held this morning - renal diet
[2019-01-28 12:48] LABS: CALCIUM 7.7 mg/dL (8.5-10.1); CREATININE 3.5 mg/dL (0.55-1.3); MAGNESIUM 1.6 mg/dL (1.8-2.4); POTASSIUM 3.3 mmol/L (3.5-5.1)
[2019-01-28] MEDS: METOPROLOL TARTRATE 25 MG TABLET (FP) PO SCH ×2 (13:00→21:36)
[2019-01-28] MEDS ORDERED: MAGNESIUM 1GM/D5W 100ML - 100 ML IVPB IVPB ONE (13:15)
[2019-01-28] MEDS ORDERED: MAGNESIUM OXIDE 400 MG TABLET (FP) PO ONE (13:15)
[2019-01-28] MEDS: LINEZOLID 600 MG TABLET (RESTRICTED TO ID) PO SCH ×2 (13:18→21:35)
--- NOTE | 2019-01-28 13:43 | PN ---
Progress Note, Physician - Current Medication List Current Medications: Active Medications Acetaminophen (Tylenol -) 650 mg PO Q6H PRN PRN Reason: FEVER Last Admin: 01/27/19 05:45 Dose: 650 mg Atorvastatin Calcium (Lipitor -) 40 mg PO HS [facility] Last Admin: 01/27/19 21:18 Dose: 40 mg Calcium Acetate (Phoslo -) 1,334 mg PO TIDCM [facility] Last Admin: 01/28/19 11:55 Dose: 1,334 mg Docusate Sodium (Colace -) 100 mg PO BID [facility] Last Admin: 01/28/19 11:57 Dose: 100 mg Fentanyl (Sublimaze Injection -) 25 mcg IVPUSH [id number] PRN PRN Reason: PAIN-PACU ORDER X 4 DOSES ONLY Ferrous Sulfate (Feosol -) 325 mg PO BIDWM [facility] Last Admin: 01/28/19 08:25 Dose: Not Given Guaifenesin (Robitussin -) 10 ml PO Q6H PRN PRN Reason: COUGH Last Admin: 01/15/19 11:31 Dose: 10 ml Heparin Sodium (Porcine) (Heparin -) 1,000 unit IVPUSH PRN PRN PRN Reason: Heparin Heparin Sodium (Porcine) (Heparin -) 5,000 unit IVPUSH PRN PRN PRN Reason: Heparin Hydralazine HCl (Apresoline -) 50 mg PO TID [facility] Last Admin: 01/28/19 13:15 Dose: 50 mg Heparin Sodium/Dextrose (Heparin Infusion -) 25,000 units in 500 mls @ 20 mls/ hr IVPB TITR [facility]; Protocol Last Titration: 01/28/19 09:42 Dose: 1,000 units/hr, 20 mls/hr Sodium Chloride (Normal Saline -) 250 mls @ 3,000 mls/hr IV PRN PRN PRN Reason: Hypotension during Dialysis Stop: 01/26/19 10:53 Sodium Chloride (Normal Saline -) 250 mls @ 3,000 mls/hr IV PRN PRN PRN Reason: Hypotension during Dialysis Stop: 01/28/19 13:29 Linezolid (Zyvox (Restricted To Id) -) 600 mg PO BID [facility] Last Admin: 01/28/19 13:18 Dose: 600 mg Losartan Potassium (Cozaar -) 100 mg PO DAILY [facility] Last Admin: 01/28/19 11:55 Dose: 100 mg Metoprolol Tartrate (Lopressor -) 75 mg PO TID [facility] Nifedipine (Procardia Xl -) 90 mg PO DAILY [facility] Last Admin: 01/28/19 11:56 Dose: 90 mg Ondansetron HCl (Zofran Injection) 4 mg IVPUSH Q6H PRN PRN Reason: NAUSEA AND/OR VOMITING Pantoprazole Sodium (Protonix -) 40 mg PO DAILY [facility] Last Admin: 01/28/19 11:56 Dose: 40 mg Phenytoin Sodium (Dilantin -) 200 mg PO BID [facility] Last Admin: 01/28/19 12:18 Dose: 200 mg Spironolactone (Aldactone -) 50 mg PO DAILY [facility] Last Admin: 01/28/19 11:59 Dose: 50 mg - Objective Vital Signs: Vital Signs Temperature 98.2 F 01/28/19 02:00 Pulse Rate 87 01/28/19 11:45 Respiratory Rate 18 01/28/19 11:45 Blood Pressure 181/117 H 01/28/19 11:45 O2 Sat by Pulse Oximetry (%) 98 01/28/19 09:00 Labs: CBC, BMP 01/28/19 05:15 01/28/19 12:05 INR, PTT INR 1.00 (0.83-1.09) 01/14/19 13:50
--- NOTE | 2019-01-28 15:11 | PN ---
Progress Note, Physician - Current Medication List Current Medications: Active Medications Acetaminophen (Tylenol -) 650 mg PO Q6H PRN PRN Reason: FEVER Last Admin: 01/27/19 05:45 Dose: 650 mg Atorvastatin Calcium (Lipitor -) 40 mg PO HS [facility] Last Admin: 01/27/19 21:18 Dose: 40 mg Calcium Acetate (Phoslo -) 1,334 mg PO TIDCM [facility] Last Admin: 01/28/19 11:55 Dose: 1,334 mg Docusate Sodium (Colace -) 100 mg PO BID [facility] Last Admin: 01/28/19 11:57 Dose: 100 mg Fentanyl (Sublimaze Injection -) 25 mcg IVPUSH [id number] PRN PRN Reason: PAIN-PACU ORDER X 4 DOSES ONLY Ferrous Sulfate (Feosol -) 325 mg PO BIDWM [facility] Last Admin: 01/28/19 08:25 Dose: Not Given Guaifenesin (Robitussin -) 10 ml PO Q6H PRN PRN Reason: COUGH Last Admin: 01/15/19 11:31 Dose: 10 ml Heparin Sodium (Porcine) (Heparin -) 1,000 unit IVPUSH PRN PRN PRN Reason: Heparin Heparin Sodium (Porcine) (Heparin -) 5,000 unit IVPUSH PRN PRN PRN Reason: Heparin Hydralazine HCl (Apresoline -) 50 mg PO TID [facility] Last Admin: 01/28/19 13:15 Dose: 50 mg Heparin Sodium/Dextrose (Heparin Infusion -) 25,000 units in 500 mls @ 20 mls/ hr IVPB TITR [facility]; Protocol Last Titration: 01/28/19 09:42 Dose: 1,000 units/hr, 20 mls/hr Sodium Chloride (Normal Saline -) 250 mls @ 3,000 mls/hr IV PRN PRN PRN Reason: Hypotension during Dialysis Sodium Chloride (Normal Saline -) 250 mls @ 3,000 mls/hr IV PRN PRN PRN Reason: Hypotension during Dialysis Linezolid (Zyvox (Restricted To Id) -) 600 mg PO BID [facility] Last Admin: 01/28/19 13:18 Dose: 600 mg Losartan Potassium (Cozaar -) 100 mg PO DAILY [facility] Last Admin: 01/28/19 11:55 Dose: 100 mg Metoprolol Tartrate (Lopressor -) 75 mg PO TID [facility] Last Admin: 01/28/19 13:00 Dose: 75 mg Nifedipine (Procardia Xl -) 90 mg PO DAILY [facility] Last Admin: 01/28/19 11:56 Dose: 90 mg Ondansetron HCl (Zofran Injection) 4 mg IVPUSH Q6H PRN PRN Reason: NAUSEA AND/OR VOMITING Pantoprazole Sodium (Protonix -) 40 mg PO DAILY [facility] Last Admin: 01/28/19 11:56 Dose: 40 mg Phenytoin Sodium (Dilantin -) 200 mg PO BID [facility] Last Admin: 01/28/19 12:18 Dose: 200 mg Spironolactone (Aldactone -) 50 mg PO DAILY [facility] Last Admin: 01/28/19 11:59 Dose: 50 mg - Objective Vital Signs: Vital Signs Temperature 98.2 F 01/28/19 02:00 Pulse Rate 89 01/28/19 14:00 Respiratory Rate 18 01/28/19 14:00 Blood Pressure 196/113 H 01/28/19 14:00 O2 Sat by Pulse Oximetry (%) 98 01/28/19 09:00 Constitutional: Yes: No Distress HENT: Yes: Atraumatic Neck: Yes: Supple Cardiovascular: Yes: Regular Rate and Rhythm Respiratory: Yes: CTA Bilaterally Gastrointestinal: Yes: Normal Bowel Sounds Extremities: Yes: WNL Neurological: Yes: Alert, Oriented Labs: CBC, BMP 01/28/19 05:15 01/28/19 12:05 INR, PTT INR 1.00 (0.83-1.09) 01/14/19 13:50 Problem List - Problems (1) Hyperkalemia Assessment/Plan: K is low now monitor Code(s): E87.5 - HYPERKALEMIA (2) Renal failure Assessment/Plan: ON HD for perma cath when stale Code(s): N19 - UNSPECIFIED KIDNEY FAILURE Qualifiers: Renal failure chronicity: unspecified chronicity Qualified Code(s): N19 - Unspecified kidney failure (3) Seizure disorder Code(s): G40.909 - EPILEPSY, UNSP, NOT INTRACTABLE, WITHOUT STATUS EPILEPTICUS (4) Anemia Assessment/Plan: stable s/p blood transfusion Code(s): D64.9 - ANEMIA, UNSPECIFIED Qualifiers: Anemia type: unspecified type Qualified Code(s): D64.9 - Anemia, unspecified (5) Acute on chronic diastolic CHF (congestive heart failure) Code(s): I50.33 - ACUTE ON CHRONIC DIASTOLIC (CONGESTIVE) HEART FAILURE (6) Hypercholesterolemia Code(s): E78.00 - PURE HYPERCHOLESTEROLEMIA, UNSPECIFIED (7) Seizures Code(s): R56.9 - UNSPECIFIED CONVULSIONS (8) Sepsis Assessment/Plan: on abx for vre Code(s): A41.9 - SEPSIS, UNSPECIFIED ORGANISM
[2019-01-28] MEDS: ATORVASTATIN CA 40 MG TABLET (FP) PO SCH (21:36)
[2019-01-29 06:08] LABS: BASO % 0.3 % (0-2.0); EOS % 5.3 % (0-4.5); HEMATOCRIT 27.2 % (32.4-45.2); HEMOGLOBIN 9.6 GM/dL (10.7-15.3); LYMPH % 21.8 % (8-40); MCH 33.3 pg (25.7-33.7); MCHC 35.4 g/dl (32.0-36.0); MEAN CELL VOLUME 94.2 fl (80-96); MEAN PLT VOLUME 6.7 fl (7.5-11.1); MONO % 7.4 % (3.8-10.2); NEUT % 65.2 % (42.8-82.8); PLATELET COUNT 362 K/MM3 (134-434); RBC 2.89 M/mm3 (3.60-5.2); RDW 15.1 % (11.6-15.6); WHITE BLOOD COUNT 8.7 K/mm3 (4.0-10.0)
[2019-01-29 06:39] LABS: ALBUMIN 1.2 g/dl (3.4-5.0); BILIRUBIN,TOTAL 0.2 mg/dL (0.2-1); BLOOD UREA NITROGEN 9.2 mg/dL (7-18); CALCIUM 7.3 mg/dL (8.5-10.1); CREATININE 3.7 mg/dL (0.55-1.3); MAGNESIUM 1.7 mg/dL (1.8-2.4); POTASSIUM 3.7 mmol/L (3.5-5.1); TOT PROT 4.5 g/dl (6.4-8.2)
[2019-01-29] MEDS: hydrALAZINE HCL 25 MG TABLET (FP) PO SCH ×3 (06:47→21:13)
[2019-01-29] MEDS: METOPROLOL TARTRATE 25 MG TABLET (FP) PO SCH ×3 (06:47→21:13)
[2019-01-29] MEDS: CALCIUM ACETATE 667 MG CAPSULE (FP) PO SCH ×3 (08:13→16:32)
[2019-01-29] MEDS: FERROUS SO4 325 MG TABLET (FP) PO SCH ×2 (09:59→17:59)
[2019-01-29] MEDS: PANTOPRAZOLE 40 MG TABLET (FP) PO SCH (11:13)
[2019-01-29] MEDS: SPIRONOLACTONE 25 MG TABLET (FP) PO SCH (11:14)
[2019-01-29] MEDS: NIFEdipine E.R. 90 MG TABLET (FP) PO SCH (11:14)
[2019-01-29] MEDS: PHENYTOIN NA EXTENDED 100 MG CAPSULE (FP) PO SCH ×2 (11:15→21:14)
[2019-01-29] MEDS: LINEZOLID 600 MG TABLET (RESTRICTED TO ID) PO SCH ×2 (11:16→21:14)
--- NOTE | 2019-01-29 11:38 | PN ---
Progress Note, Physician History of Present Illness: Pt seen and examined at bedside. She is awake and alert. She denies shortness of breath. She is going for permacath tomorrow. - Current Medication List Current Medications: Active Medications Acetaminophen (Tylenol -) 650 mg PO Q6H PRN PRN Reason: FEVER Last Admin: 01/27/19 05:45 Dose: 650 mg Atorvastatin Calcium (Lipitor -) 40 mg PO HS [facility] Last Admin: 01/28/19 21:36 Dose: 40 mg Calcium Acetate (Phoslo -) 1,334 mg PO TIDCM [facility] Last Admin: 01/28/19 17:03 Dose: 1,334 mg Fentanyl (Sublimaze Injection -) 25 mcg IVPUSH [id number] PRN PRN Reason: PAIN-PACU ORDER X 4 DOSES ONLY Ferrous Sulfate (Feosol -) 325 mg PO BIDWM [facility] Last Admin: 01/28/19 17:03 Dose: 325 mg Guaifenesin (Robitussin -) 10 ml PO Q6H PRN PRN Reason: COUGH Last Admin: 01/15/19 11:31 Dose: 10 ml Heparin Sodium (Porcine) (Heparin -) 1,000 unit IVPUSH PRN PRN PRN Reason: Heparin Heparin Sodium (Porcine) (Heparin -) 5,000 unit IVPUSH PRN PRN PRN Reason: Heparin Hydralazine HCl (Apresoline -) 50 mg PO TID [facility] Last Admin: 01/29/19 06:47 Dose: 50 mg Heparin Sodium/Dextrose (Heparin Infusion -) 25,000 units in 500 mls @ 20 mls/ hr IVPB TITR [facility]; Protocol Last Titration: 01/28/19 09:42 Dose: 1,000 units/hr, 20 mls/hr Sodium Chloride (Normal Saline -) 250 mls @ 3,000 mls/hr IV PRN PRN PRN Reason: Hypotension during Dialysis Sodium Chloride (Normal Saline -) 250 mls @ 3,000 mls/hr IV PRN PRN PRN Reason: Hypotension during Dialysis Linezolid (Zyvox (Restricted To Id) -) 600 mg PO BID [facility] Last Admin: 01/28/19 21:35 Dose: 600 mg Losartan Potassium (Cozaar -) 100 mg PO DAILY [facility] Last Admin: 01/28/19 11:55 Dose: 100 mg Metoprolol Tartrate (Lopressor -) 75 mg PO TID [facility] Last Admin: 01/29/19 06:47 Dose: 75 mg Nifedipine (Procardia Xl -) 90 mg PO DAILY [facility] Last Admin: 01/28/19 11:56 Dose: 90 mg Ondansetron HCl (Zofran Injection) 4 mg IVPUSH Q6H PRN PRN Reason: NAUSEA AND/OR VOMITING Pantoprazole Sodium (Protonix -) 40 mg PO DAILY [facility] Last Admin: 01/28/19 11:56 Dose: 40 mg Phenytoin Sodium (Dilantin -) 200 mg PO BID [facility] Last Admin: 01/28/19 21:35 Dose: 200 mg Spironolactone (Aldactone -) 50 mg PO DAILY [facility] Last Admin: 01/28/19 11:59 Dose: 50 mg - Objective Vital Signs: Vital Signs Temperature 98 F 01/29/19 00:00 Pulse Rate 87 01/29/19 00:00 Respiratory Rate 20 01/29/19 00:00 Blood Pressure 139/83 01/29/19 00:00 O2 Sat by Pulse Oximetry (%) 96 01/28/19 21:00 Constitutional: Yes: Calm Eyes: Yes: Conjunctiva Clear HENT: Yes: Atraumatic Neck: Yes: Supple Cardiovascular: Yes: S1, S2 Respiratory: Yes: CTA Bilaterally, On Nasal O2 Gastrointestinal: Yes: Soft Genitourinary: Yes: WNL Edema: Yes Edema: LLE: Trace, RLE: Trace Neurological: Yes: Oriented Psychiatric: Yes: Oriented Labs: CBC, BMP 01/29/19 05:15 01/29/19 05:15 INR, PTT INR 1.00 (0.83-1.09) 01/14/19 13:50 Problem List - Problems (1) Anemia Code(s): D64.9 - ANEMIA, UNSPECIFIED Qualifiers: Anemia type: unspecified type Qualified Code(s): D64.9 - Anemia, unspecified (2) Hyperkalemia Code(s): E87.5 - HYPERKALEMIA (3) Renal failure Code(s): N19 - UNSPECIFIED KIDNEY FAILURE Qualifiers: Renal failure chronicity: unspecified chronicity Qualified Code(s): N19 - Unspecified kidney failure Assessment/Plan Current Medications Generic Name Dose Route Start Last Admin Trade Name Freq PRN Reason Stop Dose Admin Acetaminophen 650 mg 01/15/19 21:22 01/27/19 05:45 Tylenol - PO 650 mg Q6H PRN Administration FEVER Atorvastatin Calcium 40 mg 01/10/19 22:00 01/28/19 21:36 Lipitor - PO 40 mg HS [facility] Administration Calcium Acetate 1,334 mg 01/16/19 01:17 01/28/19 17:03 Phoslo - PO 1,334 mg TIDCM [facility] Administration Fentanyl 25 mcg 01/23/19 13:01 Sublimaze Injection - IVPUSH [id number] PRN PAIN-PACU ORDER X 4 DOSES ONLY Ferrous Sulfate 325 mg 01/11/19 08:00 01/28/19 17:03 Feosol - PO 325 mg BIDWM [facility] Administration Guaifenesin 10 ml 01/13/19 15:00 01/15/19 11:31 Robitussin - PO 10 ml Q6H PRN Administration COUGH Heparin Sodium (Porcine) 1,000 unit 01/23/19 18:24 Heparin - IVPUSH PRN PRN Heparin Heparin Sodium (Porcine) 5,000 unit 01/23/19 18:24 Heparin - IVPUSH PRN PRN Heparin Hydralazine HCl 50 mg 01/22/19 12:03 01/29/19 06:47 Apresoline - PO 50 mg TID [facility] Administration Heparin Sodium/Dextrose 25,000 units in 500 mls @ 20 mls/hr 01/23/19 18:30 09:42 Heparin Infusion - IVPB 1,000 units/hr TITR [facility] 20 mls/hr Titration Protocol 1,000 UNITS/HR Sodium Chloride 250 mls @ 3,000 mls/hr 01/28/19 10:53 Normal Saline - IV PRN PRN Hypotension during Dialysis Sodium Chloride 250 mls @ 3,000 mls/hr 01/28/19 14:31 Normal Saline - IV PRN PRN Hypotension during Dialysis Linezolid 600 mg 01/22/19 10:00 01/28/19 21:35 Zyvox (Restricted To Id) - PO 600 mg BID [facility] Administration Losartan Potassium 100 mg 01/18/19 10:00 01/28/19 11:55 Cozaar - PO 100 mg DAILY [facility] Administration Metoprolol Tartrate 75 mg 01/28/19 14:00 01/29/19 06:47 Lopressor - PO 75 mg TID [facility] Administration Nifedipine 90 mg 01/20/19 12:30 01/28/19 11:56 Procardia Xl - PO 90 mg DAILY [facility] Administration Ondansetron HCl 4 mg 01/23/19 13:01 Zofran Injection IVPUSH Q6H PRN NAUSEA AND/OR VOMITING Pantoprazole Sodium 40 mg 01/11/19 10:00 01/28/19 11:56 Protonix - PO 40 mg DAILY [facility] Administration Phenytoin Sodium 200 mg 01/10/19 22:00 01/28/19 21:35 Dilantin - PO 200 mg BID [facility] Administration Spironolactone 50 mg 01/21/19 16:00 01/28/19 11:59 Aldactone - PO 50 mg DAILY [facility] Administration Impression 1. SOHAIL 2. lower ext edema 3. anemia 4. HTN 5. arthritis 6. nephrotic range proteinura 7. obesity 8. positive hep c virus on last admission 9. CKD 10. ESRD 11. hypokalemia 12. a-fib Plan - pt going for permacath tomorrow - discussed with vascular and cardio - monitor lytes - renal diet - do not hold bp meds tomorrow morning - renal diet
--- NOTE | 2019-01-29 12:06 | PN ---
Progress Note, Physician - Current Medication List Current Medications: Active Medications Acetaminophen (Tylenol -) 650 mg PO Q6H PRN PRN Reason: FEVER Last Admin: 01/27/19 05:45 Dose: 650 mg Atorvastatin Calcium (Lipitor -) 40 mg PO HS [facility] Last Admin: 01/28/19 21:36 Dose: 40 mg Calcium Acetate (Phoslo -) 1,334 mg PO TIDCM [facility] Last Admin: 01/28/19 17:03 Dose: 1,334 mg Fentanyl (Sublimaze Injection -) 25 mcg IVPUSH [id number] PRN PRN Reason: PAIN-PACU ORDER X 4 DOSES ONLY Ferrous Sulfate (Feosol -) 325 mg PO BIDWM [facility] Last Admin: 01/28/19 17:03 Dose: 325 mg Guaifenesin (Robitussin -) 10 ml PO Q6H PRN PRN Reason: COUGH Last Admin: 01/15/19 11:31 Dose: 10 ml Heparin Sodium (Porcine) (Heparin -) 1,000 unit IVPUSH PRN PRN PRN Reason: Heparin Heparin Sodium (Porcine) (Heparin -) 5,000 unit IVPUSH PRN PRN PRN Reason: Heparin Hydralazine HCl (Apresoline -) 50 mg PO TID [facility] Last Admin: 01/29/19 06:47 Dose: 50 mg Heparin Sodium/Dextrose (Heparin Infusion -) 25,000 units in 500 mls @ 20 mls/ hr IVPB TITR [facility]; Protocol Last Titration: 01/28/19 09:42 Dose: 1,000 units/hr, 20 mls/hr Sodium Chloride (Normal Saline -) 250 mls @ 3,000 mls/hr IV PRN PRN PRN Reason: Hypotension during Dialysis Sodium Chloride (Normal Saline -) 250 mls @ 3,000 mls/hr IV PRN PRN PRN Reason: Hypotension during Dialysis Linezolid (Zyvox (Restricted To Id) -) 600 mg PO BID [facility] Last Admin: 01/28/19 21:35 Dose: 600 mg Losartan Potassium (Cozaar -) 100 mg PO DAILY [facility] Last Admin: 01/28/19 11:55 Dose: 100 mg Metoprolol Tartrate (Lopressor -) 75 mg PO TID [facility] Last Admin: 01/29/19 06:47 Dose: 75 mg Nifedipine (Procardia Xl -) 90 mg PO DAILY [facility] Last Admin: 01/28/19 11:56 Dose: 90 mg Ondansetron HCl (Zofran Injection) 4 mg IVPUSH Q6H PRN PRN Reason: NAUSEA AND/OR VOMITING Pantoprazole Sodium (Protonix -) 40 mg PO DAILY [facility] Last Admin: 01/28/19 11:56 Dose: 40 mg Phenytoin Sodium (Dilantin -) 200 mg PO BID [facility] Last Admin: 01/28/19 21:35 Dose: 200 mg Spironolactone (Aldactone -) 50 mg PO DAILY [facility] Last Admin: 01/28/19 11:59 Dose: 50 mg - Objective Vital Signs: Vital Signs Temperature 98 F 01/29/19 00:00 Pulse Rate 87 01/29/19 00:00 Respiratory Rate 20 01/29/19 00:00 Blood Pressure 139/83 01/29/19 00:00 O2 Sat by Pulse Oximetry (%) 96 01/28/19 21:00 Eyes: Yes: WNL, Conjunctiva Clear, EOM Intact HENT: Yes: WNL, Atraumatic, Normocephalic Neck: Yes: WNL, Supple, Trachea Midline Cardiovascular: Yes: Pulse Irregular, S1, S2 Respiratory: Yes: WNL, Regular, CTA Bilaterally Gastrointestinal: Yes: WNL, Normal Bowel Sounds Genitourinary: Yes: WNL Musculoskeletal: Yes: WNL Extremities: Yes: WNL Edema: No Integumentary: Yes: WNL Neurological: Yes: WNL, Alert, Oriented ...Motor Strength: WNL Psychiatric: Yes: WNL Labs: CBC, BMP 01/29/19 05:15 01/29/19 05:15 INR, PTT INR 1.00 (0.83-1.09) 01/14/19 13:50 Assessment/Plan Problem List - Problems (1) Acute on chronic diastolic CHF (congestive heart failure) Assessment/Plan: On labetolol, nifedipine, losartan, hydralazine, and spironolactone. F/u BUN/Cr, electrolytes, daily wt, Is and Os. Code(s): I50.33 - ACUTE ON CHRONIC DIASTOLIC (CONGESTIVE) HEART FAILURE (2) Anemia Assessment/Plan: on iron supplements. Now on IV heparin (PAF). F/u stool quaiac; f/u Hb. Code(s): D64.9 - ANEMIA, UNSPECIFIED Qualifiers: Anemia type: unspecified type Qualified Code(s): D64.9 - Anemia, unspecified (3) Hypercholesterolemia Assessment/Plan: on atorvastatin; increase dose to keep LDL < 70 mg/dl. Code(s): E78.00 - PURE HYPERCHOLESTEROLEMIA, UNSPECIFIED (4) Cigarette nicotine dependence Code(s): F17.210 - NICOTINE DEPENDENCE, CIGARETTES, UNCOMPLICATED (5) [place] cardiac risk >20% in next 10 years Assessment/Plan: stress MIBI when stable, if not done recently. Pt's body weight/habitus may make this problematic. Code(s): Z91.89 - OTH PERSONAL RISK FACTORS, NOT ELSEWHERE CLASSIFIED (6) Renal failure Assessment/Plan: On hemodialysis. PAF-->sinus rhythm. FOr AV fistula (canceled when pt went into AF; now in NSR on metoprolol tartrate , and IV heparin for AC). Code(s): N19 - UNSPECIFIED KIDNEY FAILURE Qualifiers: Renal failure chronicity: unspecified chronicity Qualified Code(s): N19 - Unspecified kidney failure (7) Hypertensive emergency Code(s): I16.1 - HYPERTENSIVE EMERGENCY (8) Lower extremity edema Code(s): R60.0 - LOCALIZED EDEMA (9) Seizures Code(s): R56.9 - UNSPECIFIED CONVULSIONS (10) Osteoarthritis, knee Code(s): M17.10 - UNILATERAL PRIMARY OSTEOARTHRITIS, UNSPECIFIED KNEE (11) PAF (paroxysmal atrial fibrillation) Assessment/Plan: Pt developed PAF yesterday after begin given Versed; surgery for AV fistula was cancelled. ECHO: normal LVEF; mild LAE. (Pt denies hx of AF, but says, a few nights ago, for the first time, she had sudden onset of palpitations that lasted for hours; she did not inform staff at the time). Labetolol was changed to metoprolol tartrate (now increased to 75 mg tid for HR and BP); she converted to NSR. Continue IV heparin for anticoagulation (if AV fistula surgery is postponed for several days, can convert to DOAC). Keep K+ 4-4.5, Mg 2-2.4, PO4 2.5-4.9. Code(s): I48.0 - PAROXYSMAL ATRIAL FIBRILLATION (12) Hypokalemia Code(s): E87.6 - HYPOKALEMIA cc time 37 min
[2019-01-29] MEDS: LOSARTAN POTASSIUM 50 MG TABLET (FP) PO SCH (12:59)
[2019-01-29] MEDS: HEPARIN INFUSION - 25,000 UNITS/500 ML INFUS.BAG IVPB SCH (13:13)
--- NOTE | 2019-01-29 13:25 | PN ---
Progress Note, Physician - Current Medication List Current Medications: Active Medications Acetaminophen (Tylenol -) 650 mg PO Q6H PRN PRN Reason: FEVER Last Admin: 01/27/19 05:45 Dose: 650 mg Atorvastatin Calcium (Lipitor -) 40 mg PO HS [facility] Last Admin: 01/28/19 21:36 Dose: 40 mg Calcium Acetate (Phoslo -) 1,334 mg PO TIDCM [facility] Last Admin: 01/29/19 12:14 Dose: 1,334 mg Fentanyl (Sublimaze Injection -) 25 mcg IVPUSH [id number] PRN PRN Reason: PAIN-PACU ORDER X 4 DOSES ONLY Ferrous Sulfate (Feosol -) 325 mg PO BIDWM [facility] Last Admin: 01/28/19 17:03 Dose: 325 mg Guaifenesin (Robitussin -) 10 ml PO Q6H PRN PRN Reason: COUGH Last Admin: 01/15/19 11:31 Dose: 10 ml Heparin Sodium (Porcine) (Heparin -) 1,000 unit IVPUSH PRN PRN PRN Reason: Heparin Heparin Sodium (Porcine) (Heparin -) 5,000 unit IVPUSH PRN PRN PRN Reason: Heparin Hydralazine HCl (Apresoline -) 50 mg PO TID [facility] Last Admin: 01/29/19 13:15 Dose: 50 mg Heparin Sodium/Dextrose (Heparin Infusion -) 25,000 units in 500 mls @ 20 mls/ hr IVPB TITR [facility]; Protocol Last Admin: 01/29/19 13:13 Dose: 1,000 units/hr, 20 mls/hr Sodium Chloride (Normal Saline -) 250 mls @ 3,000 mls/hr IV PRN PRN PRN Reason: Hypotension during Dialysis Sodium Chloride (Normal Saline -) 250 mls @ 3,000 mls/hr IV PRN PRN PRN Reason: Hypotension during Dialysis Linezolid (Zyvox (Restricted To Id) -) 600 mg PO BID [facility] Last Admin: 01/29/19 11:16 Dose: 600 mg Losartan Potassium (Cozaar -) 100 mg PO DAILY [facility] Last Admin: 01/28/19 11:55 Dose: 100 mg Metoprolol Tartrate (Lopressor -) 75 mg PO TID [facility] Last Admin: 01/29/19 06:47 Dose: 75 mg Nifedipine (Procardia Xl -) 90 mg PO DAILY [facility] Last Admin: 01/29/19 11:14 Dose: 90 mg Ondansetron HCl (Zofran Injection) 4 mg IVPUSH Q6H PRN PRN Reason: NAUSEA AND/OR VOMITING Pantoprazole Sodium (Protonix -) 40 mg PO DAILY [facility] Last Admin: 01/29/19 11:13 Dose: 40 mg Phenytoin Sodium (Dilantin -) 200 mg PO BID [facility] Last Admin: 01/29/19 11:15 Dose: 200 mg Spironolactone (Aldactone -) 50 mg PO DAILY [facility] Last Admin: 01/29/19 11:14 Dose: 50 mg - Objective Vital Signs: Vital Signs Temperature 98 F 01/29/19 00:00 Pulse Rate 87 01/29/19 00:00 Respiratory Rate 20 01/29/19 00:00 Blood Pressure 139/83 01/29/19 00:00 O2 Sat by Pulse Oximetry (%) 96 01/28/19 21:00 Labs: CBC, BMP 01/29/19 05:15 01/29/19 05:15 INR, PTT INR 1.00 (0.83-1.09) 01/14/19 13:50
--- NOTE | 2019-01-29 16:27 | SPA.PREOP ---
- PRE-OP NOTE Dx: ESRD Planned Procedure: Permacath placement Surgeon: Mack Zapata Vital Signs Temp Pulse Resp BP Pulse Ox 98 F 87 20 139/83 96 01/29/19 00:00 01/29/19 00:00 01/29/19 00:00 01/29/19 00:00 01/28/19 21:00 Lab Results WBC 8.7 K/mm3 (4.0-10.0) 01/29/19 05:15 RBC 2.89 M/mm3 (3.60-5.2) L 01/29/19 05:15 Hgb 9.6 GM/dL (10.7-15.3) L 01/29/19 05:15 Hct 27.2 % (32.4-45.2) L 01/29/19 05:15 MCV 94.2 fl (80-96) 01/29/19 05:15 MCHC 35.4 g/dl (32.0-36.0) 01/29/19 05:15 RDW 15.1 % (11.6-15.6) 01/29/19 05:15 Plt Count 362 K/MM3 (134-434) 01/29/19 05:15 Sodium 140 mmol/L (136-145) 01/29/19 05:15 Potassium 3.7 mmol/L (3.5-5.1) 01/29/19 05:15 Chloride 103 mmol/L (98-107) 01/29/19 05:15 Carbon Dioxide 31 mmol/L (21-32) 01/29/19 05:15 Anion Gap 6 MMOL/L (8-16) L 01/29/19 05:15 BUN 9.2 mg/dL (7-18) 01/29/19 05:15 Creatinine 3.7 mg/dL (0.55-1.3) H 01/29/19 05:15 Random Glucose 78 mg/dL (74-106) 01/29/19 05:15 Calcium 7.3 mg/dL (8.5-10.1) L 01/29/19 05:15 Blood Type A POSITIVE 01/14/19 19:45 Antibody Screen Negative 01/14/19 19:45 INR 1.00 (0.83-1.09) 01/14/19 13:50 Problem List - Problems (1) Renal failure Assessment/Plan: 1. Make NPO after midnight except po meds 2. GI/DVT PPX 3. Medical optimization / clearance 4. Consent to be obtained by surgeon after risks, benefits and alternatives discussed with patient and or Health Care Proxy. 5. Per Dr. Giron, hold SQ heparin drip at 7:00am 01/31/16 Code(s): N19 - UNSPECIFIED KIDNEY FAILURE Qualifiers: Renal failure chronicity: unspecified chronicity Qualified Code(s): N19 - Unspecified kidney failure
--- NOTE | 2019-01-29 18:08 | PN ---
Progress Note, Physician History of Present Illness: doing well - Current Medication List Current Medications: Active Medications Acetaminophen (Tylenol -) 650 mg PO Q6H PRN PRN Reason: FEVER Last Admin: 01/27/19 05:45 Dose: 650 mg Atorvastatin Calcium (Lipitor -) 40 mg PO HS [facility] Last Admin: 01/28/19 21:36 Dose: 40 mg Calcium Acetate (Phoslo -) 1,334 mg PO TIDCM [facility] Last Admin: 01/29/19 16:32 Dose: 1,334 mg Fentanyl (Sublimaze Injection -) 25 mcg IVPUSH [id number] PRN PRN Reason: PAIN-PACU ORDER X 4 DOSES ONLY Ferrous Sulfate (Feosol -) 325 mg PO BIDWM [facility] Last Admin: 01/28/19 17:03 Dose: 325 mg Guaifenesin (Robitussin -) 10 ml PO Q6H PRN PRN Reason: COUGH Last Admin: 01/15/19 11:31 Dose: 10 ml Heparin Sodium (Porcine) (Heparin -) 1,000 unit IVPUSH PRN PRN PRN Reason: Heparin Heparin Sodium (Porcine) (Heparin -) 5,000 unit IVPUSH PRN PRN PRN Reason: Heparin Hydralazine HCl (Apresoline -) 50 mg PO TID [facility] Last Admin: 01/29/19 13:15 Dose: 50 mg Heparin Sodium/Dextrose (Heparin Infusion -) 25,000 units in 500 mls @ 20 mls/ hr IVPB TITR [facility]; Protocol Last Admin: 01/29/19 13:13 Dose: 1,000 units/hr, 20 mls/hr Sodium Chloride (Normal Saline -) 250 mls @ 3,000 mls/hr IV PRN PRN PRN Reason: Hypotension during Dialysis Sodium Chloride (Normal Saline -) 250 mls @ 3,000 mls/hr IV PRN PRN PRN Reason: Hypotension during Dialysis Linezolid (Zyvox (Restricted To Id) -) 600 mg PO BID [facility] Last Admin: 01/29/19 11:16 Dose: 600 mg Losartan Potassium (Cozaar -) 100 mg PO DAILY [facility] Last Admin: 01/28/19 11:55 Dose: 100 mg Metoprolol Tartrate (Lopressor -) 75 mg PO TID [facility] Last Admin: 01/29/19 14:32 Dose: 75 mg Nifedipine (Procardia Xl -) 90 mg PO DAILY [facility] Last Admin: 01/29/19 11:14 Dose: 90 mg Ondansetron HCl (Zofran Injection) 4 mg IVPUSH Q6H PRN PRN Reason: NAUSEA AND/OR VOMITING Pantoprazole Sodium (Protonix -) 40 mg PO DAILY [facility] Last Admin: 01/29/19 11:13 Dose: 40 mg Phenytoin Sodium (Dilantin -) 200 mg PO BID [facility] Last Admin: 01/29/19 11:15 Dose: 200 mg Spironolactone (Aldactone -) 50 mg PO DAILY [facility] Last Admin: 01/29/19 11:14 Dose: 50 mg - Objective Vital Signs: Vital Signs Temperature 98 F 01/29/19 00:00 Pulse Rate 87 01/29/19 00:00 Respiratory Rate 20 01/29/19 00:00 Blood Pressure 139/83 01/29/19 00:00 O2 Sat by Pulse Oximetry (%) 96 01/28/19 21:00 Constitutional: Yes: No Distress HENT: Yes: Atraumatic Neck: Yes: Supple Cardiovascular: Yes: Regular Rate and Rhythm Respiratory: Yes: CTA Bilaterally Gastrointestinal: Yes: Normal Bowel Sounds Extremities: Yes: WNL Edema: No Peripheral Pulses WNL: Yes Neurological: Yes: Alert, Oriented Labs: CBC, BMP 01/29/19 05:15 01/29/19 05:15 INR, PTT INR 1.00 (0.83-1.09) 01/14/19 13:50 Problem List - Problems (1) Hyperkalemia Assessment/Plan: K is low now monitor Code(s): E87.5 - HYPERKALEMIA (2) Renal failure Assessment/Plan: ON HD for perma cath tomorrow Code(s): N19 - UNSPECIFIED KIDNEY FAILURE Qualifiers: Renal failure chronicity: unspecified chronicity Qualified Code(s): N19 - Unspecified kidney failure (3) Seizure disorder Code(s): G40.909 - EPILEPSY, UNSP, NOT INTRACTABLE, WITHOUT STATUS EPILEPTICUS (4) Anemia Assessment/Plan: stable s/p blood transfusion Code(s): D64.9 - ANEMIA, UNSPECIFIED Qualifiers: Anemia type: unspecified type Qualified Code(s): D64.9 - Anemia, unspecified (5) Acute on chronic diastolic CHF (congestive heart failure) Code(s): I50.33 - ACUTE ON CHRONIC DIASTOLIC (CONGESTIVE) HEART FAILURE (6) Hypercholesterolemia Code(s): E78.00 - PURE HYPERCHOLESTEROLEMIA, UNSPECIFIED (7) Seizures Code(s): R56.9 - UNSPECIFIED CONVULSIONS (8) Sepsis Assessment/Plan: on abx for vre Code(s): A41.9 - SEPSIS, UNSPECIFIED ORGANISM
[2019-01-29] MEDS: ATORVASTATIN CA 40 MG TABLET (FP) PO SCH (21:14)
[2019-01-30] MEDS: METOPROLOL TARTRATE 25 MG TABLET (FP) PO SCH ×3 (05:37→21:59)
[2019-01-30] MEDS: hydrALAZINE HCL 25 MG TABLET (FP) PO SCH (05:38)
[2019-01-30 06:40] LABS: BASO % 1.4 % (0-2.0); EOS % 4.1 % (0-4.5); HEMATOCRIT 27.8 % (32.4-45.2); HEMOGLOBIN 9.7 GM/dL (10.7-15.3); LYMPH % 16.2 % (8-40); MCH 32.3 pg (25.7-33.7); MCHC 35.1 g/dl (32.0-36.0); MEAN PLT VOLUME 6.5 fl (7.5-11.1); MONO % 7.5 % (3.8-10.2); NEUT % 70.8 % (42.8-82.8); PLATELET COUNT 346 K/MM3 (134-434); RBC 3.02 M/mm3 (3.60-5.2); WHITE BLOOD COUNT 9.1 K/mm3 (4.0-10.0)
[2019-01-30 06:42] LABS: INR 1.04 (0.83-1.09); PROTHROMBIN TIME (PATIENT) 12.3 SEC (9.7-13.0)
[2019-01-30 07:12] LABS: ALBUMIN 1.2 g/dl (3.4-5.0); BILIRUBIN,TOTAL 0.2 mg/dL (0.2-1); BLOOD UREA NITROGEN 12.7 mg/dL (7-18); CALCIUM 7.4 mg/dL (8.5-10.1); CREATININE 4.4 mg/dL (0.55-1.3); POTASSIUM 3.7 mmol/L (3.5-5.1); TOT PROT 4.6 g/dl (6.4-8.2)
--- NOTE | 2019-01-30 08:49 | PN ---
Progress Note, Physician Chief Complaint: Pt alert and oriented; resting; for Permacath today.No chest pain, palpitations , or dyspnea. History of Present Illness: The patient is a 58 year old black female with a past medical history of HTN, copd chronic arthritis, and CVA (2017, 2018) anemia, CKD, diastolic chf, seizure disorder here today for evaluation of lower extremity edema. The patient reports that she has had 3 weeks of bilateral lower extremity edema which has been getting progressively worse. She also notes an intermittent productive cough of yellow sputum. today she was getting up from toilet and lost her balance, fell over. states she got tangled in pants trying to pull them up. Patient denies headache, lightheadedness. Denies fever, chills. Denies chest pain, shortness of breath. Denies nausea, vomiting, diarrhea, abdominal pain. Allergies: NKA Social history: Patient confirms tobacco use ( pack per day for the last 40 years). Denies illicit drugs or alcohol use. - Current Medication List Current Medications: Active Medications Acetaminophen (Tylenol -) 650 mg PO Q6H PRN PRN Reason: FEVER Last Admin: 01/27/19 05:45 Dose: 650 mg Atorvastatin Calcium (Lipitor -) 40 mg PO HS [facility] Last Admin: 01/29/19 21:14 Dose: 40 mg Calcium Acetate (Phoslo -) 1,334 mg PO TIDCM [facility] Last Admin: 01/29/19 16:32 Dose: 1,334 mg Fentanyl (Sublimaze Injection -) 25 mcg IVPUSH [id number] PRN PRN Reason: PAIN-PACU ORDER X 4 DOSES ONLY Ferrous Sulfate (Feosol -) 325 mg PO BIDWM [facility] Last Admin: 01/29/19 17:59 Dose: 325 mg Guaifenesin (Robitussin -) 10 ml PO Q6H PRN PRN Reason: COUGH Last Admin: 01/15/19 11:31 Dose: 10 ml Heparin Sodium (Porcine) (Heparin -) 1,000 unit IVPUSH PRN PRN PRN Reason: Heparin Heparin Sodium (Porcine) (Heparin -) 5,000 unit IVPUSH PRN PRN PRN Reason: Heparin Hydralazine HCl (Apresoline -) 50 mg PO TID [facility] Last Admin: 01/30/19 05:38 Dose: 50 mg Heparin Sodium/Dextrose (Heparin Infusion -) 25,000 units in 500 mls @ 20 mls/ hr IVPB TITR [facility]; Protocol Last Admin: 01/29/19 13:13 Dose: 1,000 units/hr, 20 mls/hr Sodium Chloride (Normal Saline -) 250 mls @ 3,000 mls/hr IV PRN PRN PRN Reason: Hypotension during Dialysis Sodium Chloride (Normal Saline -) 250 mls @ 3,000 mls/hr IV PRN PRN PRN Reason: Hypotension during Dialysis Linezolid (Zyvox (Restricted To Id) -) 600 mg PO BID [facility] Last Admin: 01/29/19 21:14 Dose: 600 mg Losartan Potassium (Cozaar -) 100 mg PO DAILY [facility] Last Admin: 01/29/19 12:59 Dose: 100 mg Metoprolol Tartrate (Lopressor -) 75 mg PO TID [facility] Last Admin: 01/30/19 05:37 Dose: 75 mg Nifedipine (Procardia Xl -) 90 mg PO DAILY [facility] Last Admin: 01/29/19 11:14 Dose: 90 mg Ondansetron HCl (Zofran Injection) 4 mg IVPUSH Q6H PRN PRN Reason: NAUSEA AND/OR VOMITING Pantoprazole Sodium (Protonix -) 40 mg PO DAILY [facility] Last Admin: 01/29/19 11:13 Dose: 40 mg Phenytoin Sodium (Dilantin -) 200 mg PO BID [facility] Last Admin: 01/29/19 21:14 Dose: 200 mg Spironolactone (Aldactone -) 50 mg PO DAILY [facility] Last Admin: 01/29/19 11:14 Dose: 50 mg - Objective Vital Signs: Vital Signs Temperature 98.4 F 01/30/19 07:51 Pulse Rate 82 01/30/19 07:51 Respiratory Rate 15 01/30/19 07:51 Blood Pressure 171/75 H 01/30/19 07:51 O2 Sat by Pulse Oximetry (%) 96 01/29/19 20:16 Constitutional: Yes: Calm Eyes: Yes: WNL HENT: Yes: WNL Neck: Yes: WNL Cardiovascular: Yes: S1, S2, S4 Respiratory: Yes: WNL Gastrointestinal: Yes: Soft, Abdomen, Obese ...Rectal Exam: Yes: Deferred Genitourinary: No: Anuria Breast(s): Yes: WNL Musculoskeletal: Yes: Muscle Weakness Edema: No Peripheral Pulses WNL: Yes Integumentary: Yes: WNL Neurological: Yes: Alert, Oriented Psychiatric: Yes: Alert, Oriented Labs: CBC, BMP 01/30/19 06:10 01/30/19 06:10 INR, PTT INR 1.04 (0.83-1.09) 01/30/19 06:10 Abnormal Lab Results 01/30/19 01/30/19 06:10 06:10 RBC 3.02 L Hgb 9.7 L Hct 27.8 L MPV 6.5 L Anion Gap 7 L Creatinine 4.4 H Calcium 7.4 L ALT 10 L Alkaline Phosphatase 139 H Total Protein 4.6 L Albumin 1.2 L - ....Imaging Other: Image Reviewed (telemetry: NSR; no arrhythmias or signiricant pauses) Problem List - Problems (1) Acute on chronic diastolic CHF (congestive heart failure) Assessment/Plan: On metoprolol tartrate nifedipine, losartan, hydralazine, and spironolactone. F/u BUN/Cr, electrolytes, daily wt, Is and Os. Code(s): I50.33 - ACUTE ON CHRONIC DIASTOLIC (CONGESTIVE) HEART FAILURE (2) Anemia Assessment/Plan: on iron supplements. Now on IV heparin (PAF). F/u stool quaiac; f/u Hb. Code(s): D64.9 - ANEMIA, UNSPECIFIED Qualifiers: Anemia type: unspecified type Qualified Code(s): D64.9 - Anemia, unspecified (3) Hypercholesterolemia Assessment/Plan: on atorvastatin; increase dose to keep LDL < 70 mg/dl. Code(s): E78.00 - PURE HYPERCHOLESTEROLEMIA, UNSPECIFIED (4) Cigarette nicotine dependence Code(s): F17.210 - NICOTINE DEPENDENCE, CIGARETTES, UNCOMPLICATED (5) [place] cardiac risk >20% in next 10 years Assessment/Plan: stress MIBI when stable, if not done recently. Pt's body weight/habitus may make this problematic. Code(s): Z91.89 - OTH PERSONAL RISK FACTORS, NOT ELSEWHERE CLASSIFIED (6) Renal failure Assessment/Plan: On hemodialysis. PAF-->sinus rhythm. FOr Permacath (canceled when pt went into AF; now in NSR on metoprolol tartrate , and IV heparin for AC). Continue metoprolol (do not hold prior to Permacath surgery). Code(s): N19 - UNSPECIFIED KIDNEY FAILURE Qualifiers: Renal failure chronicity: unspecified chronicity Qualified Code(s): N19 - Unspecified kidney failure (7) Hypertensive emergency Assessment/Plan: On metoprolol , nifedipine, losartan, spironolactone, and hydralazine. On hemodialysis. Changed from labetolol to metoprolol due to development of AF with RVR. Code(s): I16.1 - HYPERTENSIVE EMERGENCY (8) Lower extremity edema Code(s): R60.0 - LOCALIZED EDEMA (9) Seizures Code(s): R56.9 - UNSPECIFIED CONVULSIONS (10) Osteoarthritis, knee Assessment/Plan: left knee OA Code(s): M17.10 - UNILATERAL PRIMARY OSTEOARTHRITIS, UNSPECIFIED KNEE (11) PAF (paroxysmal atrial fibrillation) Assessment/Plan: PAF; now in NSR. Continue metoprolol, and do not hold prior to Permacath surgery. Code(s): I48.0 - PAROXYSMAL ATRIAL FIBRILLATION (12) Hypokalemia Assessment/Plan: see under "PAF". Code(s): E87.6 - HYPOKALEMIA (13) Hypomagnesemia Assessment/Plan: replete; and keep 2-2.4. Code(s): E83.42 - HYPOMAGNESEMIA
[2019-01-30] MEDS: CALCIUM ACETATE 667 MG CAPSULE (FP) PO SCH ×3 (09:03→18:57)
[2019-01-30] MEDS: FERROUS SO4 325 MG TABLET (FP) PO SCH ×2 (09:03→19:01)
[2019-01-30] MEDS: SPIRONOLACTONE 25 MG TABLET (FP) PO SCH (09:20)
[2019-01-30] MEDS: LOSARTAN POTASSIUM 50 MG TABLET (FP) PO SCH (09:20)
[2019-01-30] MEDS: PHENYTOIN NA EXTENDED 100 MG CAPSULE (FP) PO SCH ×2 (09:21→21:59)
[2019-01-30] MEDS: LINEZOLID 600 MG TABLET (RESTRICTED TO ID) PO SCH ×2 (09:22→22:00)
[2019-01-30] MEDS: NIFEdipine E.R. 90 MG TABLET (FP) PO SCH (09:22)
[2019-01-30] MEDS: PANTOPRAZOLE 40 MG TABLET (FP) PO SCH (09:22)
[2019-01-30] MEDS ORDERED: LIDOCAINE HCL 1%, 10 MG/ML (20ML VIAL) ONE (10:16)
[2019-01-30] MEDS ORDERED: HEPARIN NA (PORCINE) 5,000 UNITS/ML 1ML VIAL ONE (10:16)
[2019-01-30] MEDS ORDERED: MIDAZOLAM HCL 2 MG/2 ML SINGLE DOSE VIAL ONE (10:26)
[2019-01-30] MEDS ORDERED: PROPOFOL 20 ML ONE (10:26)
[2019-01-30 10:52] LABS: MAGNESIUM 1.8 mg/dL (1.8-2.4)
[2019-01-30] MEDS ORDERED: LIDOCAINE HCL/PF 2% SDV 5ML VIAL ONE (11:36)
[2019-01-30] MEDS ORDERED: ceFAZolin SODIUM 1 GM VIAL ONE (11:40)
[2019-01-30] MEDS ORDERED: ceFAZolin SODIUM 1 GM VIAL IVPB ONE (11:42)
[2019-01-30] MEDS ORDERED: LIDOCAINE HCL 1%, 10 MG/ML (20ML VIAL) NR ONE (11:46)
--- NOTE | 2019-01-30 12:13 | OP ---
Operative Note - Note: Operative Date: 01/30/19 Pre-Operative Diagnosis: ESRD Operation: Insertion of permacath Post-Operative Diagnosis: Same as Pre-op Surgeon: Juan Giron Anesthesia: Fractional Estimated Blood Loss (mls): 20 Operative Report Dictated: Yes
[2019-01-30] MEDS ORDERED: HEPARIN NA (PORCINE) 5,000 UNITS/ML 1ML VIAL IVPUSH PRN ×3 (12:19→16:18)
[2019-01-30] MEDS ORDERED: ONDANSETRON 4 MG/2 ML VIAL IVPUSH PRN (12:42)
[2019-01-30] MEDS ORDERED: SODIUM CHLORIDE 250 ML IV PRN ×3 (12:42→13:38)
[2019-01-30] MEDS ORDERED: guaiFENesin 200 MG/10 ML 10 ML UNIT-DOSE CUPS PO PRN (12:42)
--- NOTE | 2019-01-30 12:58 | OP ---
DATE OF OPERATION: 01/30/2019 PREOPERATIVE DIAGNOSIS: End-stage renal disease. POSTOPERATIVE DIAGNOSIS: End-stage renal disease. PROCEDURE: Insertion of PermCath. SURGEON: Juan Griffin DO ANESTHESIA: Fractional. BLOOD LOSS: 20 mL. The patient is a 58-year-old female who has a right internal jugular vein Shiley catheter in place. She now needs a permanent dialysis catheter in the form of a PermCath. Patient was consented for the procedure, understanding all risks, benefits, and alternatives; was then taken to the operating room. Once in the operating suite, laid on the operating table in supine manner and the area of the right neck and chest were prepped and draped in a sterile surgical manner. We then went ahead and placed a 0.035 guidewire into the existing Shiley, and the Shiley was removed. We then changed our gloves for sterility sake, and we then went ahead and took an 11 blade and made a 1-cm incision at the puncture site. Patient was given 15 mL of lidocaine 1% in the area. We then went down to below the clavicle and, using a number-15 blade, made a 1-cm incision as well. At this point, we tunneled the PermCath up to the puncture site. We then placed our break-away sheath over the guidewire, into the vein under fluoroscopy, and the cannula and guidewire were removed. Catheter was placed inside the sheath. Sheath was broken away as the catheter was placed inside the vein. Neck of the catheter was nice and smooth. Tip of the catheter was located outside the right atrium. We then pao back on each port of the catheter. There was good flow. Heparinized saline was injected, and 2000 units of IV heparin were injected into each port. We then used 4-0 Biosyn, and 2 simple sutures were placed at the puncture site, 3-0 nylon was used, and the catheter was attached to the skin. BIOPATCH, Steri-Strips, 4 x 4, and Tegaderms were placed. The patient tolerated the procedure with no complications. Patient was transferred to PACU in stable condition where a chest x-ray will be obtained. JUAN GRIFFIN DO [id number]
[2019-01-30] MEDS ORDERED: POTASSIUM CHLORIDE TABS 20 MEQ TABLET.ER (FP) PO ONE (13:37)
--- NOTE | 2019-01-30 13:37 | PN ---
Progress Note, Physician History of Present Illness: Pt seen and examined at bedside. She is awake and alert. She denies shortness of breath. She had the permacath placed. - Current Medication List Current Medications: Active Medications Acetaminophen (Tylenol -) 650 mg PO Q6H PRN PRN Reason: FEVER Atorvastatin Calcium (Lipitor -) 40 mg PO HS [facility] Calcium Acetate (Phoslo -) 1,334 mg PO TIDCM [facility] Fentanyl (Sublimaze Injection -) 25 mcg IVPUSH [id number] PRN PRN Reason: PAIN-PACU ORDER X 4 DOSES ONLY Last Admin: 01/30/19 12:52 Dose: 25 mcg Ferrous Sulfate (Feosol -) 325 mg PO BIDWM [facility] Guaifenesin (Robitussin -) 10 ml PO Q6H PRN PRN Reason: COUGH Heparin Sodium (Porcine) (Heparin -) 1,000 unit IVPUSH PRN PRN PRN Reason: Heparin Heparin Sodium (Porcine) (Heparin -) 5,000 unit IVPUSH PRN PRN PRN Reason: Heparin Hydralazine HCl (Apresoline -) 50 mg PO TID [facility] HEPARIN SOD,PORK IN 0.45% NACL (Heparin-1/2ns 25,000 Units/500) 25,000 units in 500 mls @ 20 mls/hr IVPB TITR [facility]; Protocol Sodium Chloride (Normal Saline -) 250 mls @ 3,000 mls/hr IV PRN PRN PRN Reason: Hypotension during Dialysis Sodium Chloride (Normal Saline -) 250 mls @ 3,000 mls/hr IV PRN PRN PRN Reason: Hypotension during Dialysis Linezolid (Zyvox (Restricted To Id) -) 600 mg PO BID [facility] Losartan Potassium (Cozaar -) 100 mg PO DAILY [facility] Metoprolol Tartrate (Lopressor -) 75 mg PO TID [facility] Nifedipine (Procardia Xl -) 90 mg PO DAILY [facility] Ondansetron HCl (Zofran Injection) 4 mg IVPUSH Q6H PRN PRN Reason: NAUSEA AND/OR VOMITING Pantoprazole Sodium (Protonix -) 40 mg PO DAILY [facility] Phenytoin Sodium (Dilantin -) 200 mg PO BID [facility] Spironolactone (Aldactone -) 50 mg PO DAILY [facility] - Objective Vital Signs: Vital Signs Temperature 97.0 F L 01/30/19 12:09 Pulse Rate 85 01/30/19 13:25 Respiratory Rate 16 01/30/19 13:25 Blood Pressure 159/110 H 01/30/19 13:25 O2 Sat by Pulse Oximetry (%) 98 01/30/19 13:25 Constitutional: Yes: Calm Eyes: Yes: Conjunctiva Clear HENT: Yes: Atraumatic Neck: Yes: Supple Cardiovascular: Yes: S1, S2 Respiratory: Yes: CTA Bilaterally Gastrointestinal: Yes: Soft, Abdomen, Obese Genitourinary: Yes: WNL Musculoskeletal: Yes: Muscle Weakness Edema: Yes Edema: LLE: 1+, RLE: 1+ Neurological: Yes: Oriented Psychiatric: Yes: Oriented Labs: CBC, BMP 01/30/19 06:10 01/30/19 06:10 INR, PTT INR 1.04 (0.83-1.09) 01/30/19 06:10 Problem List - Problems (1) Anemia Code(s): D64.9 - ANEMIA, UNSPECIFIED Qualifiers: Anemia type: unspecified type Qualified Code(s): D64.9 - Anemia, unspecified (2) Hyperkalemia Code(s): E87.5 - HYPERKALEMIA (3) Renal failure Code(s): N19 - UNSPECIFIED KIDNEY FAILURE Qualifiers: Renal failure chronicity: unspecified chronicity Qualified Code(s): N19 - Unspecified kidney failure Assessment/Plan Current Medications Generic Name Dose Route Start Last Admin Trade Name Freq PRN Reason Stop Dose Admin Acetaminophen 650 mg 01/30/19 12:42 Tylenol - PO Q6H PRN FEVER Atorvastatin Calcium 40 mg 01/30/19 22:00 Lipitor - PO HS [facility] Calcium Acetate 1,334 mg 01/30/19 17:30 Phoslo - PO TIDCM [facility] Fentanyl 25 mcg 01/30/19 12:42 01/30/19 12:52 Sublimaze Injection - IVPUSH 25 mcg [id number] PRN Administration PAIN-PACU ORDER X 4 DOSES ONLY Ferrous Sulfate 325 mg 01/30/19 17:30 Feosol - PO BIDWM [facility] Guaifenesin 10 ml 01/30/19 12:42 Robitussin - PO Q6H PRN COUGH Heparin Sodium (Porcine) 1,000 unit 01/30/19 12:19 Heparin - IVPUSH PRN PRN Heparin Heparin Sodium (Porcine) 5,000 unit 01/30/19 12:19 Heparin - IVPUSH PRN PRN Heparin Hydralazine HCl 50 mg 01/30/19 14:00 Apresoline - PO TID [facility] HEPARIN SOD,PORK IN 0.45% NACL 25,000 units in 500 mls @ 20 mls/hr 01/30/19 16 :30 Heparin-1/2ns 25,000 Units/500 IVPB TITR [facility] Protocol 1,000 UNITS/HR Sodium Chloride 250 mls @ 3,000 mls/hr 01/30/19 12:42 Normal Saline - IV PRN PRN Hypotension during Dialysis Sodium Chloride 250 mls @ 3,000 mls/hr 01/30/19 12:42 Normal Saline - IV PRN PRN Hypotension during Dialysis Linezolid 600 mg 01/30/19 22:00 Zyvox (Restricted To Id) - PO BID [facility] Losartan Potassium 100 mg 01/31/19 10:00 Cozaar - PO DAILY [facility] Metoprolol Tartrate 75 mg 01/30/19 14:00 Lopressor - PO TID [facility] Nifedipine 90 mg 01/31/19 10:00 Procardia Xl - PO DAILY [facility] Ondansetron HCl 4 mg 01/30/19 12:42 Zofran Injection IVPUSH Q6H PRN NAUSEA AND/OR VOMITING Pantoprazole Sodium 40 mg 01/31/19 10:00 Protonix - PO DAILY [facility] Phenytoin Sodium 200 mg 01/30/19 22:00 Dilantin - PO BID [facility] Spironolactone 50 mg 01/31/19 10:00 Aldactone - PO DAILY [facility] Impression 1. SOHAIL 2. lower ext edema 3. anemia 4. HTN 5. arthritis 6. nephrotic range proteinura 7. obesity 8. positive hep c virus on last admission 9. CKD 10. ESRD 11. hypokalemia 12. a-fib Plan - pt s/p permacath - will need to confirm placement - HD after PC placement confirmed - discussed with cardio, possible stress test tomorrow - will still need AV fistula - replace potassium - renal diet
[2019-01-30] MEDS: hydrALAZINE HCL 50 MG TABLET (FP) PO SCH ×2 (14:49→21:59)
[2019-01-30] MEDS ORDERED: HEPARIN SOD,PORK IN 0.45% NACL 25,000 UNITS/500 ML INFUS.BAG IVPB SCH (16:30)
--- NOTE | 2019-01-30 16:45 | PN ---
Progress Note, Physician - Current Medication List Current Medications: Active Medications Acetaminophen (Tylenol -) 650 mg PO Q6H PRN PRN Reason: FEVER Atorvastatin Calcium (Lipitor -) 40 mg PO HS [facility] Calcium Acetate (Phoslo -) 1,334 mg PO TIDCM [facility] Fentanyl (Sublimaze Injection -) 25 mcg IVPUSH [id number] PRN PRN Reason: PAIN-PACU ORDER X 4 DOSES ONLY Last Admin: 01/30/19 12:52 Dose: 25 mcg Ferrous Sulfate (Feosol -) 325 mg PO BIDWM [facility] Guaifenesin (Robitussin -) 10 ml PO Q6H PRN PRN Reason: COUGH Heparin Sodium (Porcine) (Heparin -) 1,000 unit IVPUSH PRN PRN PRN Reason: Heparin Last Admin: 01/30/19 15:38 Dose: 1,000 unit Heparin Sodium (Porcine) (Heparin -) 5,000 unit IVPUSH PRN PRN PRN Reason: Heparin Hydralazine HCl (Apresoline -) 50 mg PO TID [facility] Last Admin: 01/30/19 14:49 Dose: 50 mg HEPARIN SOD,PORK IN 0.45% NACL (Heparin-1/2ns 25,000 Units/500) 25,000 units in 500 mls @ 20 mls/hr IVPB TITR [facility]; Protocol Sodium Chloride (Normal Saline -) 250 mls @ 3,000 mls/hr IV PRN PRN PRN Reason: Hypotension during Dialysis Sodium Chloride (Normal Saline -) 250 mls @ 3,000 mls/hr IV PRN PRN PRN Reason: Hypotension during Dialysis Stop: 01/31/19 13:38 Linezolid (Zyvox (Restricted To Id) -) 600 mg PO BID [facility] Losartan Potassium (Cozaar -) 100 mg PO DAILY [facility] Metoprolol Tartrate (Lopressor -) 75 mg PO TID [facility] Last Admin: 01/30/19 14:50 Dose: 75 mg Nifedipine (Procardia Xl -) 90 mg PO DAILY [facility] Ondansetron HCl (Zofran Injection) 4 mg IVPUSH Q6H PRN PRN Reason: NAUSEA AND/OR VOMITING Pantoprazole Sodium (Protonix -) 40 mg PO DAILY [facility] Phenytoin Sodium (Dilantin -) 200 mg PO BID [facility] Spironolactone (Aldactone -) 50 mg PO DAILY [facility] - Objective Vital Signs: Vital Signs Temperature 98.2 F 01/30/19 15:20 Pulse Rate 79 01/30/19 15:30 Respiratory Rate 18 01/30/19 15:30 Blood Pressure 130/88 01/30/19 15:30 O2 Sat by Pulse Oximetry (%) 97 01/30/19 13:40 Constitutional: Yes: No Distress HENT: Yes: Atraumatic Neck: Yes: Supple Cardiovascular: Yes: Regular Rate and Rhythm Respiratory: Yes: CTA Bilaterally Gastrointestinal: Yes: Normal Bowel Sounds Extremities: Yes: WNL Edema: No Neurological: Yes: Alert, Oriented Labs: CBC, BMP 01/30/19 06:10 01/30/19 06:10 INR, PTT INR 1.04 (0.83-1.09) 01/30/19 06:10 Problem List - Problems (1) Hyperkalemia Assessment/Plan: K is low now monitor Code(s): E87.5 - HYPERKALEMIA (2) Renal failure Assessment/Plan: ON HD s/p permacath Code(s): N19 - UNSPECIFIED KIDNEY FAILURE Qualifiers: Renal failure chronicity: unspecified chronicity Qualified Code(s): N19 - Unspecified kidney failure (3) Seizure disorder Code(s): G40.909 - EPILEPSY, UNSP, NOT INTRACTABLE, WITHOUT STATUS EPILEPTICUS (4) Anemia Assessment/Plan: stable s/p blood transfusion Code(s): D64.9 - ANEMIA, UNSPECIFIED Qualifiers: Anemia type: unspecified type Qualified Code(s): D64.9 - Anemia, unspecified (5) Acute on chronic diastolic CHF (congestive heart failure) Code(s): I50.33 - ACUTE ON CHRONIC DIASTOLIC (CONGESTIVE) HEART FAILURE (6) Hypercholesterolemia Code(s): E78.00 - PURE HYPERCHOLESTEROLEMIA, UNSPECIFIED (7) Seizures Code(s): R56.9 - UNSPECIFIED CONVULSIONS (8) Sepsis Code(s): A41.9 - SEPSIS, UNSPECIFIED ORGANISM
--- NOTE | 2019-01-30 18:08 | PN ---
Progress Note, Physician History of Present Illness: Pt without new complaints. s/p Permacath placement. Remains afebrile. - Current Medication List Current Medications: Active Medications Acetaminophen (Tylenol -) 650 mg PO Q6H PRN PRN Reason: FEVER Atorvastatin Calcium (Lipitor -) 40 mg PO HS [facility] Calcium Acetate (Phoslo -) 1,334 mg PO TIDCM [facility] Fentanyl (Sublimaze Injection -) 25 mcg IVPUSH [id number] PRN PRN Reason: PAIN-PACU ORDER X 4 DOSES ONLY Last Admin: 01/30/19 12:52 Dose: 25 mcg Ferrous Sulfate (Feosol -) 325 mg PO BIDWM [facility] Guaifenesin (Robitussin -) 10 ml PO Q6H PRN PRN Reason: COUGH Heparin Sodium (Porcine) (Heparin -) 1,000 unit IVPUSH PRN PRN PRN Reason: Heparin Last Admin: 01/30/19 15:38 Dose: 1,000 unit Heparin Sodium (Porcine) (Heparin -) 5,000 unit IVPUSH PRN PRN PRN Reason: Heparin Hydralazine HCl (Apresoline -) 50 mg PO TID [facility] Last Admin: 01/30/19 14:49 Dose: 50 mg HEPARIN SOD,PORK IN 0.45% NACL (Heparin-1/2ns 25,000 Units/500) 25,000 units in 500 mls @ 20 mls/hr IVPB TITR [facility]; Protocol Sodium Chloride (Normal Saline -) 250 mls @ 3,000 mls/hr IV PRN PRN PRN Reason: Hypotension during Dialysis Sodium Chloride (Normal Saline -) 250 mls @ 3,000 mls/hr IV PRN PRN PRN Reason: Hypotension during Dialysis Stop: 01/31/19 13:38 Linezolid (Zyvox (Restricted To Id) -) 600 mg PO BID [facility] Losartan Potassium (Cozaar -) 100 mg PO DAILY [facility] Metoprolol Tartrate (Lopressor -) 75 mg PO TID [facility] Last Admin: 01/30/19 14:50 Dose: 75 mg Nifedipine (Procardia Xl -) 90 mg PO DAILY [facility] Ondansetron HCl (Zofran Injection) 4 mg IVPUSH Q6H PRN PRN Reason: NAUSEA AND/OR VOMITING Pantoprazole Sodium (Protonix -) 40 mg PO DAILY [facility] Phenytoin Sodium (Dilantin -) 200 mg PO BID [facility] Spironolactone (Aldactone -) 50 mg PO DAILY [facility] - Objective Vital Signs: Vital Signs Temperature 98.2 F 01/30/19 15:20 Pulse Rate 81 01/30/19 17:29 Respiratory Rate 18 01/30/19 17:29 Blood Pressure 129/94 01/30/19 17:29 O2 Sat by Pulse Oximetry (%) 97 01/30/19 13:40 Constitutional: Yes: No Distress Cardiovascular: Yes: Regular Rate and Rhythm Respiratory: Yes: Regular Gastrointestinal: Yes: Normal Bowel Sounds, Soft Integumentary: Yes: WNL Neurological: Yes: Alert Labs: CBC, BMP 01/30/19 06:10 01/30/19 06:10 INR, PTT INR 1.04 (0.83-1.09) 01/30/19 06:10 Problem List - Problems (1) Acute on chronic diastolic CHF (congestive heart failure) Code(s): I50.33 - ACUTE ON CHRONIC DIASTOLIC (CONGESTIVE) HEART FAILURE (2) Anemia Code(s): D64.9 - ANEMIA, UNSPECIFIED Qualifiers: Anemia type: unspecified type Qualified Code(s): D64.9 - Anemia, unspecified (3) Hypercholesterolemia Code(s): E78.00 - PURE HYPERCHOLESTEROLEMIA, UNSPECIFIED (4) Osteoarthritis, knee Code(s): M17.10 - UNILATERAL PRIMARY OSTEOARTHRITIS, UNSPECIFIED KNEE (5) PAF (paroxysmal atrial fibrillation) Code(s): I48.0 - PAROXYSMAL ATRIAL FIBRILLATION (6) Renal failure Code(s): N19 - UNSPECIFIED KIDNEY FAILURE Qualifiers: Renal failure chronicity: unspecified chronicity Qualified Code(s): N19 - Unspecified kidney failure (7) Seizures Code(s): R56.9 - UNSPECIFIED CONVULSIONS (8) Hypertensive emergency Code(s): I16.1 - HYPERTENSIVE EMERGENCY Assessment/Plan VRE UTI ESRD -- continue antibiotics and monitor -- permacath placed Pt afebrile, alert
[2019-01-30] MEDS: ACETAMINOPHEN 325 MG TABLET (FP) PO PRN (19:00)
[2019-01-30] MEDS: ATORVASTATIN CA 40 MG TABLET (FP) PO SCH (21:59)
[2019-01-31] MEDS: hydrALAZINE HCL 50 MG TABLET (FP) PO SCH ×4 (06:21→22:01)
[2019-01-31] MEDS: FERROUS SO4 325 MG TABLET (FP) PO SCH ×2 (08:40→18:10)
[2019-01-31] MEDS: CALCIUM ACETATE 667 MG CAPSULE (FP) PO SCH ×4 (08:40→18:10)
[2019-01-31] MEDS: METOPROLOL TARTRATE 25 MG TABLET (FP) PO SCH ×4 (08:40→22:00)
[2019-01-31] MEDS: SPIRONOLACTONE 25 MG TABLET (FP) PO SCH (10:41)
[2019-01-31] MEDS: PANTOPRAZOLE 40 MG TABLET (FP) PO SCH (10:41)
[2019-01-31] MEDS: LOSARTAN POTASSIUM 50 MG TABLET (FP) PO SCH (10:41)
[2019-01-31] MEDS: LINEZOLID 600 MG TABLET (RESTRICTED TO ID) PO SCH ×2 (10:42→23:02)
[2019-01-31] MEDS: NIFEdipine E.R. 90 MG TABLET (FP) PO SCH (10:42)
[2019-01-31] MEDS: PHENYTOIN NA EXTENDED 100 MG CAPSULE (FP) PO SCH ×2 (10:42→22:01)
--- NOTE | 2019-01-31 13:20 | DS ---
Physical Examination Vital Signs: Vital Signs Temperature 97.9 F 01/31/19 10:00 Pulse Rate 84 01/31/19 10:00 Respiratory Rate 18 01/31/19 10:00 Blood Pressure 148/98 01/31/19 10:00 O2 Sat by Pulse Oximetry (%) 97 01/31/19 09:00 Labs: CBC, BMP 01/30/19 06:10 01/30/19 06:10 Discharge Summary Reason For Visit: ANEMIA, RENAL FAILURE HYPERKALEMIA Current Active Problems Accident due to mechanical fall without injury (Acute) Acute on chronic diastolic CHF (congestive heart failure) (Acute) Anemia (Acute) Hypercholesterolemia (Acute) Hyperkalemia (Acute) Hypokalemia (Acute) Hypomagnesemia (Acute) Osteoarthritis, knee (Acute) PAF (paroxysmal atrial fibrillation) (Acute) Renal failure (Acute) Seizures (Acute) Sepsis (Acute) - Instructions - Home Medications Comprehensive Discharge Medication List: Ambulatory Orders Gabapentin 300 mg PO TID 12/17/18 Phenytoin Sodium Extended 200 mg PO BID 12/17/18 Atorvastatin Ca [Lipitor] 40 mg PO HS tablet 12/24/18 Docusate Sodium [Colace -] 100 mg PO BID capsule 12/24/18 Ferrous Sulfate [Feosol] 325 mg PO BIDWM ud 12/24/18 Heparin - 5,000 unit SQ TID vial 12/24/18 Sennosides [Senna -] 2 tab PO HS tablet 12/24/18 Acetaminophen [Tylenol .Regular Strength -] 650 mg PO Q6H PRN tablet 01/31/19 Calcium Acetate [Phoslo -] 1,334 mg PO TIDCM capsule 01/31/19 Guaifenesin [Robitussin -] 10 ml PO Q6H PRN cup 01/31/19 Losartan Potassium [Cozaar -] 100 mg PO DAILY tablet 01/31/19 Metoprolol Tartrate [Lopressor -] 75 mg PO TID tablet 01/31/19 Nifedipine ER [Procardia XL -] 90 mg PO DAILY tab.er.24 01/31/19 Pantoprazole Sodium [Protonix -] 40 mg PO DAILY tablet.ec 01/31/19 Spironolactone [Aldactone -] 50 mg PO DAILY tablet 01/31/19 hydrALAZINE HCL [Apresoline -] 50 mg PO TID tablet 01/31/19 eliquis 2.5 mg po bid dc snf completed abx today
--- NOTE | 2019-01-31 14:46 | PN ---
Progress Note, Physician - Current Medication List Current Medications: Active Medications Acetaminophen (Tylenol -) 650 mg PO Q6H PRN PRN Reason: FEVER Last Admin: 01/30/19 19:00 Dose: 650 mg Apixaban (Eliquis -) 2.5 mg PO BID [facility] Atorvastatin Calcium (Lipitor -) 40 mg PO HS [facility] Last Admin: 01/30/19 21:59 Dose: 40 mg Calcium Acetate (Phoslo -) 1,334 mg PO TIDCM [facility] Last Admin: 01/31/19 14:10 Dose: 1,334 mg Fentanyl (Sublimaze Injection -) 25 mcg IVPUSH [id number] PRN PRN Reason: PAIN-PACU ORDER X 4 DOSES ONLY Last Admin: 01/30/19 12:52 Dose: 25 mcg Ferrous Sulfate (Feosol -) 325 mg PO BIDWM [facility] Last Admin: 01/31/19 08:40 Dose: 325 mg Guaifenesin (Robitussin -) 10 ml PO Q6H PRN PRN Reason: COUGH Hydralazine HCl (Apresoline -) 50 mg PO TID [facility] Last Admin: 01/31/19 14:10 Dose: 50 mg Sodium Chloride (Normal Saline -) 250 mls @ 3,000 mls/hr IV PRN PRN PRN Reason: Hypotension during Dialysis Sodium Chloride (Normal Saline -) 250 mls @ 3,000 mls/hr IV PRN PRN PRN Reason: Hypotension during Dialysis Stop: 01/31/19 13:38 Linezolid (Zyvox (Restricted To Id) -) 600 mg PO BID [facility] Last Admin: 01/31/19 10:42 Dose: 600 mg Losartan Potassium (Cozaar -) 100 mg PO DAILY [facility] Last Admin: 01/31/19 10:41 Dose: 100 mg Metoprolol Tartrate (Lopressor -) 75 mg PO TID [facility] Last Admin: 01/31/19 14:09 Dose: 75 mg Nifedipine (Procardia Xl -) 90 mg PO DAILY [facility] Last Admin: 01/31/19 10:42 Dose: 90 mg Ondansetron HCl (Zofran Injection) 4 mg IVPUSH Q6H PRN PRN Reason: NAUSEA AND/OR VOMITING Pantoprazole Sodium (Protonix -) 40 mg PO DAILY [facility] Last Admin: 01/31/19 10:41 Dose: 40 mg Phenytoin Sodium (Dilantin -) 200 mg PO BID [facility] Last Admin: 01/31/19 10:42 Dose: 200 mg Spironolactone (Aldactone -) 50 mg PO DAILY [facility] Last Admin: 01/31/19 10:41 Dose: 50 mg - Objective Vital Signs: Vital Signs Temperature 97.9 F 01/31/19 10:00 Pulse Rate 84 01/31/19 10:00 Respiratory Rate 18 01/31/19 10:00 Blood Pressure 148/98 01/31/19 10:00 O2 Sat by Pulse Oximetry (%) 97 01/31/19 09:00 Constitutional: Yes: No Distress HENT: Yes: Atraumatic Neck: Yes: Supple Cardiovascular: Yes: Regular Rate and Rhythm Respiratory: Yes: CTA Bilaterally Gastrointestinal: Yes: Normal Bowel Sounds Extremities: Yes: WNL Neurological: Yes: Alert, Oriented Labs: CBC, BMP 01/30/19 06:10 01/30/19 06:10 INR, PTT INR 1.04 (0.83-1.09) 01/30/19 06:10 Problem List - Problems (1) Hyperkalemia Assessment/Plan: monitor Code(s): E87.5 - HYPERKALEMIA (2) Renal failure Assessment/Plan: ON HD s/p permacath Code(s): N19 - UNSPECIFIED KIDNEY FAILURE Qualifiers: Renal failure chronicity: unspecified chronicity Qualified Code(s): N19 - Unspecified kidney failure (3) Seizure disorder Code(s): G40.909 - EPILEPSY, UNSP, NOT INTRACTABLE, WITHOUT STATUS EPILEPTICUS (4) Anemia Assessment/Plan: stable s/p blood transfusion Code(s): D64.9 - ANEMIA, UNSPECIFIED Qualifiers: Anemia type: unspecified type Qualified Code(s): D64.9 - Anemia, unspecified (5) Acute on chronic diastolic CHF (congestive heart failure) Code(s): I50.33 - ACUTE ON CHRONIC DIASTOLIC (CONGESTIVE) HEART FAILURE (6) Hypercholesterolemia Code(s): E78.00 - PURE HYPERCHOLESTEROLEMIA, UNSPECIFIED (7) Seizures Code(s): R56.9 - UNSPECIFIED CONVULSIONS (8) Sepsis Assessment/Plan: on abx for vre Code(s): A41.9 - SEPSIS, UNSPECIFIED ORGANISM
--- NOTE | 2019-01-31 15:33 | PN ---
Progress Note, Physician History of Present Illness: stable no new issues got the catheter - Current Medication List Current Medications: Active Medications Acetaminophen (Tylenol -) 650 mg PO Q6H PRN PRN Reason: FEVER Last Admin: 01/30/19 19:00 Dose: 650 mg Apixaban (Eliquis -) 2.5 mg PO BID [facility] Atorvastatin Calcium (Lipitor -) 40 mg PO HS [facility] Last Admin: 01/30/19 21:59 Dose: 40 mg Calcium Acetate (Phoslo -) 1,334 mg PO TIDCM [facility] Last Admin: 01/31/19 14:10 Dose: 1,334 mg Fentanyl (Sublimaze Injection -) 25 mcg IVPUSH [id number] PRN PRN Reason: PAIN-PACU ORDER X 4 DOSES ONLY Last Admin: 01/30/19 12:52 Dose: 25 mcg Ferrous Sulfate (Feosol -) 325 mg PO BIDWM [facility] Last Admin: 01/31/19 08:40 Dose: 325 mg Guaifenesin (Robitussin -) 10 ml PO Q6H PRN PRN Reason: COUGH Hydralazine HCl (Apresoline -) 50 mg PO TID [facility] Last Admin: 01/31/19 14:10 Dose: 50 mg Sodium Chloride (Normal Saline -) 250 mls @ 3,000 mls/hr IV PRN PRN PRN Reason: Hypotension during Dialysis Sodium Chloride (Normal Saline -) 250 mls @ 3,000 mls/hr IV PRN PRN PRN Reason: Hypotension during Dialysis Stop: 01/31/19 13:38 Linezolid (Zyvox (Restricted To Id) -) 600 mg PO BID [facility] Last Admin: 01/31/19 10:42 Dose: 600 mg Losartan Potassium (Cozaar -) 100 mg PO DAILY [facility] Last Admin: 01/31/19 10:41 Dose: 100 mg Metoprolol Tartrate (Lopressor -) 75 mg PO TID [facility] Last Admin: 01/31/19 14:09 Dose: 75 mg Nifedipine (Procardia Xl -) 90 mg PO DAILY [facility] Last Admin: 01/31/19 10:42 Dose: 90 mg Ondansetron HCl (Zofran Injection) 4 mg IVPUSH Q6H PRN PRN Reason: NAUSEA AND/OR VOMITING Pantoprazole Sodium (Protonix -) 40 mg PO DAILY [facility] Last Admin: 01/31/19 10:41 Dose: 40 mg Phenytoin Sodium (Dilantin -) 200 mg PO BID [facility] Last Admin: 01/31/19 10:42 Dose: 200 mg Spironolactone (Aldactone -) 50 mg PO DAILY [facility] Last Admin: 01/31/19 10:41 Dose: 50 mg - Objective Vital Signs: Vital Signs Temperature 99.0 F 01/31/19 14:00 Pulse Rate 90 01/31/19 14:00 Respiratory Rate 18 01/31/19 14:00 Blood Pressure 139/89 01/31/19 14:00 O2 Sat by Pulse Oximetry (%) 97 01/31/19 09:00 Constitutional: Yes: No Distress, Calm Cardiovascular: Yes: Regular Rate and Rhythm Respiratory: Yes: Regular, CTA Bilaterally Gastrointestinal: Yes: Normal Bowel Sounds, Soft Musculoskeletal: Yes: WNL Extremities: Yes: WNL Neurological: Yes: Alert, Oriented Psychiatric: Yes: Alert, Oriented Labs: CBC, BMP 01/30/19 06:10 01/30/19 06:10 INR, PTT INR 1.04 (0.83-1.09) 01/30/19 06:10 Assessment/Plan patient looks sick and i am worried that she might take turn for the worse,labd have been ordered ,uncollected Problem List - Problems (1) Anemia Code(s): D64.9 - ANEMIA, UNSPECIFIED Qualifiers: Anemia type: unspecified type Qualified Code(s): D64.9 - Anemia, unspecified (2) Hyperkalemia Code(s): E87.5 - HYPERKALEMIA (3) Renal failure Code(s): N19 - UNSPECIFIED KIDNEY FAILURE Qualifiers: Renal failure chronicity: unspecified chronicity Qualified Code(s): N19 - Unspecified kidney failure sepsis fever plan stop abx continue current mgmt
[2019-01-31] MEDS ORDERED: SODIUM CHLORIDE 250 ML IV PRN (16:00)
--- NOTE | 2019-01-31 16:00 | PN ---
Progress Note, Physician History of Present Illness: Pt seen and examined at bedside. She is awake and alert. She denies shortness of breath. - Current Medication List Current Medications: Active Medications Acetaminophen (Tylenol -) 650 mg PO Q6H PRN PRN Reason: FEVER Last Admin: 01/30/19 19:00 Dose: 650 mg Apixaban (Eliquis -) 2.5 mg PO BID [facility] Atorvastatin Calcium (Lipitor -) 40 mg PO HS [facility] Last Admin: 01/30/19 21:59 Dose: 40 mg Calcium Acetate (Phoslo -) 1,334 mg PO TIDCM [facility] Last Admin: 01/31/19 14:10 Dose: 1,334 mg Fentanyl (Sublimaze Injection -) 25 mcg IVPUSH [id number] PRN PRN Reason: PAIN-PACU ORDER X 4 DOSES ONLY Last Admin: 01/30/19 12:52 Dose: 25 mcg Ferrous Sulfate (Feosol -) 325 mg PO BIDWM [facility] Last Admin: 01/31/19 08:40 Dose: 325 mg Guaifenesin (Robitussin -) 10 ml PO Q6H PRN PRN Reason: COUGH Hydralazine HCl (Apresoline -) 50 mg PO TID [facility] Last Admin: 01/31/19 14:10 Dose: 50 mg Sodium Chloride (Normal Saline -) 250 mls @ 3,000 mls/hr IV PRN PRN PRN Reason: Hypotension during Dialysis Sodium Chloride (Normal Saline -) 250 mls @ 3,000 mls/hr IV PRN PRN PRN Reason: Hypotension during Dialysis Stop: 01/31/19 13:38 Linezolid (Zyvox (Restricted To Id) -) 600 mg PO BID [facility] Last Admin: 01/31/19 10:42 Dose: 600 mg Losartan Potassium (Cozaar -) 100 mg PO DAILY [facility] Last Admin: 01/31/19 10:41 Dose: 100 mg Metoprolol Tartrate (Lopressor -) 75 mg PO TID [facility] Last Admin: 01/31/19 14:09 Dose: 75 mg Nifedipine (Procardia Xl -) 90 mg PO DAILY [facility] Last Admin: 01/31/19 10:42 Dose: 90 mg Ondansetron HCl (Zofran Injection) 4 mg IVPUSH Q6H PRN PRN Reason: NAUSEA AND/OR VOMITING Pantoprazole Sodium (Protonix -) 40 mg PO DAILY [facility] Last Admin: 01/31/19 10:41 Dose: 40 mg Phenytoin Sodium (Dilantin -) 200 mg PO BID [facility] Last Admin: 01/31/19 10:42 Dose: 200 mg Spironolactone (Aldactone -) 50 mg PO DAILY [facility] Last Admin: 01/31/19 10:41 Dose: 50 mg - Objective Vital Signs: Vital Signs Temperature 99.0 F 01/31/19 14:00 Pulse Rate 90 01/31/19 14:00 Respiratory Rate 18 01/31/19 14:00 Blood Pressure 139/89 01/31/19 14:00 O2 Sat by Pulse Oximetry (%) 97 01/31/19 09:00 Constitutional: Yes: Calm Eyes: Yes: Conjunctiva Clear HENT: Yes: Atraumatic Neck: Yes: Supple Cardiovascular: Yes: S1, S2 Respiratory: Yes: CTA Bilaterally Gastrointestinal: Yes: Soft Genitourinary: Yes: WNL Musculoskeletal: Yes: WNL Edema: No Neurological: Yes: Oriented Psychiatric: Yes: Oriented Labs: CBC, BMP 01/30/19 06:10 01/30/19 06:10 INR, PTT INR 1.04 (0.83-1.09) 01/30/19 06:10 Problem List - Problems (1) Anemia Code(s): D64.9 - ANEMIA, UNSPECIFIED Qualifiers: Anemia type: unspecified type Qualified Code(s): D64.9 - Anemia, unspecified (2) Hyperkalemia Code(s): E87.5 - HYPERKALEMIA (3) Renal failure Code(s): N19 - UNSPECIFIED KIDNEY FAILURE Qualifiers: Renal failure chronicity: unspecified chronicity Qualified Code(s): N19 - Unspecified kidney failure Assessment/Plan Current Medications Generic Name Dose Route Start Last Admin Trade Name Freq PRN Reason Stop Dose Admin Acetaminophen 650 mg 01/30/19 12:42 01/30/19 19:00 Tylenol - PO 650 mg Q6H PRN Administration FEVER Apixaban 2.5 mg 01/31/19 14:00 Eliquis - PO BID [facility] Atorvastatin Calcium 40 mg 01/30/19 22:00 01/30/19 21:59 Lipitor - PO 40 mg HS [facility] Administration Calcium Acetate 1,334 mg 01/30/19 17:30 06/14/19 14:10 Phoslo - PO 1,334 mg TIDCM [facility] Administration Fentanyl 25 mcg 01/30/19 12:42 01/30/19 12:52 Sublimaze Injection - IVPUSH 25 mcg [id number] PRN Administration PAIN-PACU ORDER X 4 DOSES ONLY Ferrous Sulfate 325 mg 01/30/19 17:30 01/31/19 08:40 Feosol - PO 325 mg BIDWM [facility] Administration Guaifenesin 10 ml 01/30/19 12:42 Robitussin - PO Q6H PRN COUGH Hydralazine HCl 50 mg 01/30/19 14:00 01/31/19 14:10 Apresoline - PO 50 mg TID [facility] Administration Sodium Chloride 250 mls @ 3,000 mls/hr 01/30/19 12:42 Normal Saline - IV PRN PRN Hypotension during Dialysis Sodium Chloride 250 mls @ 3,000 mls/hr 01/30/19 13:38 Normal Saline - IV 01/31/19 13:38 PRN PRN Hypotension during Dialysis Linezolid 600 mg 01/30/19 22:00 01/31/19 10:42 Zyvox (Restricted To Id) - PO 600 mg BID [facility] Administration Losartan Potassium 100 mg 01/31/19 10:00 01/31/19 10:41 Cozaar - PO 100 mg DAILY [facility] Administration Metoprolol Tartrate 75 mg 01/30/19 14:00 01/31/19 14:09 Lopressor - PO 75 mg TID [facility] Administration Nifedipine 90 mg 01/31/19 10:00 01/31/19 10:42 Procardia Xl - PO 90 mg DAILY [facility] Administration Ondansetron HCl 4 mg 01/30/19 12:42 Zofran Injection IVPUSH Q6H PRN NAUSEA AND/OR VOMITING Pantoprazole Sodium 40 mg 01/31/19 10:00 01/31/19 10:41 Protonix - PO 40 mg DAILY [facility] Administration Phenytoin Sodium 200 mg 01/30/19 22:00 01/31/19 10:42 Dilantin - PO 200 mg BID [facility] Administration Spironolactone 50 mg 01/31/19 10:00 01/31/19 10:41 Aldactone - PO 50 mg DAILY [facility] Administration Impression 1. SOHAIL 2. lower ext edema 3. anemia 4. HTN 5. arthritis 6. nephrotic range proteinura 7. obesity 8. positive hep c virus on last admission 9. CKD 10. ESRD 11. hypokalemia 12. a-fib Plan - HD tomorrow - cardio for stress test - will re-order hep panel - send hd info to [facility] for renal care for rehab and inpt HD - will still need AV fistula - renal diet
[2019-01-31] MEDS: ATORVASTATIN CA 40 MG TABLET (FP) PO SCH (22:00)
[2019-01-31] MEDS ORDERED: PT OWN MED DRAWER 7, Y5N ONE (22:00)
[2019-01-31] MEDS: APIXABAN 5 MG TABLET PO SCH (22:01)
[2019-02-01] MEDS: METOPROLOL TARTRATE 25 MG TABLET (FP) PO SCH ×3 (05:53→21:46)
[2019-02-01] MEDS: hydrALAZINE HCL 50 MG TABLET (FP) PO SCH ×3 (05:53→21:46)
[2019-02-01] MEDS: FERROUS SO4 325 MG TABLET (FP) PO SCH ×2 (08:35→17:21)
[2019-02-01] MEDS: CALCIUM ACETATE 667 MG CAPSULE (FP) PO SCH ×4 (08:35→17:21)
--- NOTE | 2019-02-01 10:04 | CON.NEURO ---
Consult Consult Specialty:: NEUROLOGY-RICHA PINEDA - History of Present Illness History of Present Illness: Pt is a 58 year old female with pmhx of CKD, htn, athritis, anemia, and cva who was sent in after a fall. She was recently admitted with renal failure. She was found to have worsening renal failure in the ER . She denies shortness of breath but she complains of lower ext edema. She denies chest pain or palpitations. She was also found to be hyperkalemic. She denies loss of appetite. She is stable, has not had any sz. states she has chronic pain in both legs, does not ambulate 2/2 this issue. CURRENT ISSUES: ccident due to mechanical fall without injury (Acute) Acute on chronic diastolic CHF (congestive heart failure) (Acute) Anemia (Acute) Hypercholesterolemia (Acute) Hyperkalemia (Acute) Hypokalemia (Acute) Hypomagnesemia (Acute) Osteoarthritis, knee (Acute) PAF (paroxysmal atrial fibrillation) (Acute) Renal failure (Acute) Seizures (Acute) Sepsis (Acute) - Instructions - Home Medications Comprehensive Discharge Medication List: Ambulatory Orders Gabapentin 300 mg PO TID 12/17/18 Phenytoin Sodium Extended 200 mg PO BID 12/17/18 Atorvastatin Ca [Lipitor] 40 mg PO HS tablet 12/24/18 Docusate Sodium [Colace -] 100 mg PO BID capsule 12/24/18 Ferrous Sulfate [Feosol] 325 mg PO BIDWM ud 12/24/18 Heparin - 5,000 unit SQ TID vial 12/24/18 Sennosides [Senna -] 2 tab PO HS tablet 12/24/18 Acetaminophen [Tylenol .Regular Strength -] 650 mg PO Q6H PRN tablet 01/31/19 Calcium Acetate [Phoslo -] 1,334 mg PO TIDCM capsule 01/31/19 Guaifenesin [Robitussin -] 10 ml PO Q6H PRN cup 01/31/19 Losartan Potassium [Cozaar -] 100 mg PO DAILY tablet 01/31/19 Metoprolol Tartrate [Lopressor -] 75 mg PO TID tablet 01/31/19 Nifedipine ER [Procardia XL -] 90 mg PO DAILY tab.er.24 01/31/19 Pantoprazole Sodium [Protonix -] 40 mg PO DAILY tablet.ec 01/31/19 Spironolactone [Aldactone -] 50 mg PO DAILY tablet 01/31/19 hydrALAZINE HCL [Apresoline -] 50 mg PO TID tablet 01/31/19 eliquis 2.5 mg po bid - Past Medical History [employer]: Yes: Peripheral Neuropathy Cardio/Vascular: Yes: HTN Renal/: Yes: Renal Failure, Renal Inusuff Musculoskeletal: Yes: Osteoarthritis - Alcohol/Substance Use Hx Alcohol Use: No History of Substance Use: reports: None - Smoking History Smoking history: Current every day smoker Have you smoked in the past 12 months: Yes Aproximately how many cigarettes per day: 10 - Social History Usual Living Arrangement: Alone ADL: Support Services ([facility] 9A -2p x 7days per week) 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 History of Recent Travel: No Home Medications - Allergies Allergies/Adverse Reactions: Allergies Allergy/AdvReac Type Severity Reaction Status Date / Time No Known Allergies Allergy Verified 12/17/18 10:54 - Home Medications Home Medications: Ambulatory Orders Gabapentin 300 mg PO TID 12/17/18 Phenytoin Sodium Extended 200 mg PO BID 12/17/18 Atorvastatin Ca [Lipitor] 40 mg PO HS tablet 12/24/18 Docusate Sodium [Colace -] 100 mg PO BID capsule 12/24/18 Ferrous Sulfate [Feosol] 325 mg PO BIDWM ud 12/24/18 Sennosides [Senna -] 2 tab PO HS tablet 12/24/18 Acetaminophen [Tylenol .Regular Strength -] 650 mg PO Q6H PRN tablet 01/31/19 Apixaban [Eliquis] 2.5 mg PO BID #60 tablet 01/31/19 Calcium Acetate [Phoslo -] 1,334 mg PO TIDCM capsule 01/31/19 Guaifenesin [Robitussin -] 10 ml PO Q6H PRN cup 01/31/19 Losartan Potassium [Cozaar -] 100 mg PO DAILY tablet 01/31/19 Metoprolol Tartrate [Lopressor -] 75 mg PO TID tablet 01/31/19 Nifedipine ER [Procardia XL -] 90 mg PO DAILY tab.er.24 01/31/19 Pantoprazole Sodium [Protonix -] 40 mg PO DAILY tablet.ec 01/31/19 Spironolactone [Aldactone -] 50 mg PO DAILY tablet 01/31/19 hydrALAZINE HCL [Apresoline -] 50 mg PO TID tablet 01/31/19 Family Disease History - Family Disease History Family Disease History: Other: Father ( (60+) CVA, h/p amputation), Mother ( (60+) HTN), Brother ( (23) drug overdose) Physical Exam-Neuro Vital Signs: Vital Signs Temperature 98.7 F 02/01/19 05:00 Pulse Rate 87 02/01/19 05:00 Respiratory Rate 20 02/01/19 05:00 Blood Pressure 146/68 02/01/19 05:00 O2 Sat by Pulse Oximetry (%) 96 01/31/19 21:00 Labs: CBC, BMP 01/30/19 06:10 01/30/19 06:10 INR, PTT INR 1.04 (0.83-1.09) 01/30/19 06:10 - Neuro Exam Level Of Consciousness: Yes: Alert, Oriented to Person, Oriented to Place, Oriented to Time Mini Mental Exam: Impaired concentration, does not allow further testing DTR's: 0 Left Achilles, 0 Right Achilles, 1+ Left Bicep, 1+ Right Bicep, 1+ Left Tricep, 1+ Right Tricep, 1+ Left Brachioradialis, 1+ Right Brachioradialis Babinski: Absent Response to light touch: Normal Response to vibration: Abnormal (impaired bilat feet proprioception) Motor Strength: 4/5: Left Leg, Right Leg (limited bilat LE ROM 2/2 pain), 5/5: Left Arm, Right Arm Gait: Other (Gets out of bed with assistance, wide based, states unable to walk 2/2 pain(chronic) in both legs) Assessment/Plan Pt. with multiple med. conditions, now stable, awaits d/c to snf. She has a hx. of seizures, no details known to patient. She is on DPH 200mg bid, last level in December 22.8. Would cont. at same dose given she has not had any seizures. Thank you, Abdi Hoffman MD
[2019-02-01] MEDS: PHENYTOIN NA EXTENDED 100 MG CAPSULE (FP) PO SCH ×2 (10:07→21:46)
[2019-02-01] MEDS: SPIRONOLACTONE 25 MG TABLET (FP) PO SCH (10:07)
[2019-02-01] MEDS: PANTOPRAZOLE 40 MG TABLET (FP) PO SCH (10:07)
[2019-02-01] MEDS: APIXABAN 5 MG TABLET PO SCH ×2 (10:07→21:46)
[2019-02-01] MEDS: LOSARTAN POTASSIUM 50 MG TABLET (FP) PO SCH (10:07)
[2019-02-01] MEDS: LINEZOLID 600 MG TABLET (RESTRICTED TO ID) PO SCH (10:08)
[2019-02-01] MEDS: NIFEdipine E.R. 90 MG TABLET (FP) PO SCH (10:08)
[2019-02-01] MEDS ORDERED: EPOETIN ALFA 2,000 UNIT/1 ML VIAL IVPUSH ONE (12:00)
[2019-02-01 12:11] LABS: ALBUMIN 1.3 g/dl (3.4-5.0); ALK PHOS 130 U/L (45-117); ANION GAP 5 MMOL/L (8-16); BILIRUBIN,TOTAL < 0.1 mg/dL (0.2-1); BLOOD UREA NITROGEN 16.6 mg/dL (7-18); CHLORIDE 105 mmol/L (98-107); CO2 32 mmol/L (21-32); CREATININE 4.5 mg/dL (0.55-1.3); GLUCOSE,RANDOM 97 mg/dL (74-106); POTASSIUM 3.8 mmol/L (3.5-5.1); SGOT/AST 25 U/L (15-37); SGPT/ALT 7 U/L (13-61); SODIUM 142 mmol/L (136-145); TOT PROT 4.6 g/dl (6.4-8.2)
--- NOTE | 2019-02-01 13:37 | PN ---
Progress Note, Physician History of Present Illness: doing well - Current Medication List Current Medications: Active Medications Acetaminophen (Tylenol -) 650 mg PO Q6H PRN PRN Reason: FEVER Last Admin: 01/30/19 19:00 Dose: 650 mg Apixaban (Eliquis -) 5 mg PO BID [facility] Last Admin: 02/01/19 10:07 Dose: 5 mg Atorvastatin Calcium (Lipitor -) 40 mg PO HS [facility] Last Admin: 01/31/19 22:00 Dose: 40 mg Calcium Acetate (Phoslo -) 1,334 mg PO TIDCM [facility] Last Admin: 02/01/19 11:22 Dose: Not Given Fentanyl (Sublimaze Injection -) 25 mcg IVPUSH [id number] PRN PRN Reason: PAIN-PACU ORDER X 4 DOSES ONLY Last Admin: 01/30/19 12:52 Dose: 25 mcg Ferrous Sulfate (Feosol -) 325 mg PO BIDWM [facility] Last Admin: 02/01/19 08:35 Dose: 325 mg Guaifenesin (Robitussin -) 10 ml PO Q6H PRN PRN Reason: COUGH Hydralazine HCl (Apresoline -) 50 mg PO TID [facility] Last Admin: 02/01/19 05:53 Dose: 50 mg Sodium Chloride (Normal Saline -) 250 mls @ 3,000 mls/hr IV PRN PRN PRN Reason: Hypotension during Dialysis Stop: 02/01/19 16:00 Linezolid (Zyvox (Restricted To Id) -) 600 mg PO BID [facility] Last Admin: 02/01/19 10:08 Dose: 600 mg Losartan Potassium (Cozaar -) 100 mg PO DAILY [facility] Last Admin: 02/01/19 10:07 Dose: 100 mg Metoprolol Tartrate (Lopressor -) 75 mg PO TID [facility] Last Admin: 02/01/19 05:53 Dose: 75 mg Nifedipine (Procardia Xl -) 90 mg PO DAILY [facility] Last Admin: 02/01/19 10:08 Dose: 90 mg Ondansetron HCl (Zofran Injection) 4 mg IVPUSH Q6H PRN PRN Reason: NAUSEA AND/OR VOMITING Pantoprazole Sodium (Protonix -) 40 mg PO DAILY [facility] Last Admin: 02/01/19 10:07 Dose: 40 mg Phenytoin Sodium (Dilantin -) 200 mg PO BID [facility] Last Admin: 02/01/19 10:07 Dose: 200 mg Spironolactone (Aldactone -) 50 mg PO DAILY [facility] Last Admin: 02/01/19 10:07 Dose: 50 mg - Objective Vital Signs: Vital Signs Temperature 98.4 F 02/01/19 10:00 Pulse Rate 80 02/01/19 11:40 Respiratory Rate 18 02/01/19 11:40 Blood Pressure 176/47 H 02/01/19 11:40 O2 Sat by Pulse Oximetry (%) 98 02/01/19 09:00 Constitutional: Yes: No Distress HENT: Yes: Atraumatic Neck: Yes: Supple Cardiovascular: Yes: Regular Rate and Rhythm Respiratory: Yes: CTA Bilaterally Gastrointestinal: Yes: Normal Bowel Sounds Extremities: Yes: WNL Edema: Yes Edema: LLE: 1+, RLE: 1+ Neurological: Yes: Alert, Oriented Labs: CBC, BMP 02/01/19 11:15 INR, PTT INR 1.04 (0.83-1.09) 01/30/19 06:10 Problem List - Problems (1) Hyperkalemia Assessment/Plan: K wnl Code(s): E87.5 - HYPERKALEMIA (2) Renal failure Assessment/Plan: ON HD s/p permacath Code(s): N19 - UNSPECIFIED KIDNEY FAILURE Qualifiers: Renal failure chronicity: unspecified chronicity Qualified Code(s): N19 - Unspecified kidney failure (3) Seizure disorder Code(s): G40.909 - EPILEPSY, UNSP, NOT INTRACTABLE, WITHOUT STATUS EPILEPTICUS (4) Anemia Assessment/Plan: stable s/p blood transfusion Code(s): D64.9 - ANEMIA, UNSPECIFIED Qualifiers: Anemia type: unspecified type Qualified Code(s): D64.9 - Anemia, unspecified (5) Acute on chronic diastolic CHF (congestive heart failure) Code(s): I50.33 - ACUTE ON CHRONIC DIASTOLIC (CONGESTIVE) HEART FAILURE (6) Hypercholesterolemia Code(s): E78.00 - PURE HYPERCHOLESTEROLEMIA, UNSPECIFIED (7) Seizures Code(s): R56.9 - UNSPECIFIED CONVULSIONS (8) Sepsis Code(s): A41.9 - SEPSIS, UNSPECIFIED ORGANISM
--- NOTE | 2019-02-01 13:50 | PN ---
Progress Note, Physician History of Present Illness: stable no new issues - Current Medication List Current Medications: Active Medications Acetaminophen (Tylenol -) 650 mg PO Q6H PRN PRN Reason: FEVER Last Admin: 01/30/19 19:00 Dose: 650 mg Apixaban (Eliquis -) 5 mg PO BID [facility] Last Admin: 02/01/19 10:07 Dose: 5 mg Atorvastatin Calcium (Lipitor -) 40 mg PO HS [facility] Last Admin: 01/31/19 22:00 Dose: 40 mg Calcium Acetate (Phoslo -) 1,334 mg PO TIDCM [facility] Last Admin: 02/01/19 11:22 Dose: Not Given Fentanyl (Sublimaze Injection -) 25 mcg IVPUSH [id number] PRN PRN Reason: PAIN-PACU ORDER X 4 DOSES ONLY Last Admin: 01/30/19 12:52 Dose: 25 mcg Ferrous Sulfate (Feosol -) 325 mg PO BIDWM [facility] Last Admin: 02/01/19 08:35 Dose: 325 mg Guaifenesin (Robitussin -) 10 ml PO Q6H PRN PRN Reason: COUGH Hydralazine HCl (Apresoline -) 50 mg PO TID [facility] Last Admin: 02/01/19 05:53 Dose: 50 mg Sodium Chloride (Normal Saline -) 250 mls @ 3,000 mls/hr IV PRN PRN PRN Reason: Hypotension during Dialysis Stop: 02/01/19 16:00 Linezolid (Zyvox (Restricted To Id) -) 600 mg PO BID [facility] Last Admin: 02/01/19 10:08 Dose: 600 mg Losartan Potassium (Cozaar -) 100 mg PO DAILY [facility] Last Admin: 02/01/19 10:07 Dose: 100 mg Metoprolol Tartrate (Lopressor -) 75 mg PO TID [facility] Last Admin: 02/01/19 05:53 Dose: 75 mg Nifedipine (Procardia Xl -) 90 mg PO DAILY [facility] Last Admin: 02/01/19 10:08 Dose: 90 mg Ondansetron HCl (Zofran Injection) 4 mg IVPUSH Q6H PRN PRN Reason: NAUSEA AND/OR VOMITING Pantoprazole Sodium (Protonix -) 40 mg PO DAILY [facility] Last Admin: 02/01/19 10:07 Dose: 40 mg Phenytoin Sodium (Dilantin -) 200 mg PO BID [facility] Last Admin: 02/01/19 10:07 Dose: 200 mg Spironolactone (Aldactone -) 50 mg PO DAILY [facility] Last Admin: 02/01/19 10:07 Dose: 50 mg - Objective Vital Signs: Vital Signs Temperature 98.4 F 02/01/19 10:00 Pulse Rate 80 02/01/19 11:40 Respiratory Rate 18 02/01/19 11:40 Blood Pressure 176/47 H 02/01/19 11:40 O2 Sat by Pulse Oximetry (%) 98 02/01/19 09:00 Constitutional: Yes: No Distress, Calm Cardiovascular: Yes: Regular Rate and Rhythm Respiratory: Yes: Regular, CTA Bilaterally Gastrointestinal: Yes: Normal Bowel Sounds, Soft Musculoskeletal: Yes: WNL Extremities: Yes: WNL Neurological: Yes: Alert, Oriented Psychiatric: Yes: Alert, Oriented Labs: CBC, BMP 02/01/19 11:15 INR, PTT INR 1.04 (0.83-1.09) 01/30/19 06:10 Assessment/Plan patient looks sick and i am worried that she might take turn for the worse,labd have been ordered ,uncollected Problem List - Problems (1) Anemia Code(s): D64.9 - ANEMIA, UNSPECIFIED Qualifiers: Anemia type: unspecified type Qualified Code(s): D64.9 - Anemia, unspecified (2) Hyperkalemia Code(s): E87.5 - HYPERKALEMIA (3) Renal failure Code(s): N19 - UNSPECIFIED KIDNEY FAILURE Qualifiers: Renal failure chronicity: unspecified chronicity Qualified Code(s): N19 - Unspecified kidney failure sepsis fever plan continue current mgmt stable monitor dialysis rest as per the team
[2019-02-01 15:09] LABS: HEMATOCRIT 26.7 % (32.4-45.2); MCH 30.2 pg (25.7-33.7); MCHC 33.5 g/dl (32.0-36.0); MEAN PLT VOLUME 6.7 fl (7.5-11.1); PLATELET COUNT 304 K/MM3 (134-434); RBC 2.97 M/mm3 (3.60-5.2); RDW 14.8 % (11.6-15.6); WHITE BLOOD COUNT 7.6 K/mm3 (4.0-10.0)
[2019-02-01 15:15] LABS: BLOOD UREA NITROGEN 6.9 mg/dL (7-18)
--- NOTE | 2019-02-01 17:06 | PN ---
Progress Note (short form) - Note Progress Note: esrd s/p HD in am treatment was uneventful Current Medications Acetaminophen (Tylenol -) 650 mg PO Q6H PRN PRN Reason: FEVER Last Admin: 01/30/19 19:00 Dose: 650 mg Apixaban (Eliquis -) 5 mg PO BID [facility] Last Admin: 02/01/19 10:07 Dose: 5 mg Atorvastatin Calcium (Lipitor -) 40 mg PO HS [facility] Last Admin: 01/31/19 22:00 Dose: 40 mg Calcium Acetate (Phoslo -) 1,334 mg PO TIDCM [facility] Last Admin: 02/01/19 15:14 Dose: 1,334 mg Fentanyl (Sublimaze Injection -) 25 mcg IVPUSH [id number] PRN PRN Reason: PAIN-PACU ORDER X 4 DOSES ONLY Last Admin: 01/30/19 12:52 Dose: 25 mcg Ferrous Sulfate (Feosol -) 325 mg PO BIDWM [facility] Last Admin: 02/01/19 08:35 Dose: 325 mg Guaifenesin (Robitussin -) 10 ml PO Q6H PRN PRN Reason: COUGH Hydralazine HCl (Apresoline -) 50 mg PO TID [facility] Last Admin: 02/01/19 15:13 Dose: Not Given Losartan Potassium (Cozaar -) 100 mg PO DAILY [facility] Last Admin: 02/01/19 10:07 Dose: 100 mg Metoprolol Tartrate (Lopressor -) 75 mg PO TID [facility] Last Admin: 02/01/19 15:14 Dose: 75 mg Nifedipine (Procardia Xl -) 90 mg PO DAILY [facility] Last Admin: 02/01/19 10:08 Dose: 90 mg Ondansetron HCl (Zofran Injection) 4 mg IVPUSH Q6H PRN PRN Reason: NAUSEA AND/OR VOMITING Pantoprazole Sodium (Protonix -) 40 mg PO DAILY [facility] Last Admin: 02/01/19 10:07 Dose: 40 mg Phenytoin Sodium (Dilantin -) 200 mg PO BID [facility] Last Admin: 02/01/19 10:07 Dose: 200 mg Spironolactone (Aldactone -) 50 mg PO DAILY [facility] Last Admin: 02/01/19 10:07 Dose: 50 mg Last Vital Signs Temp Pulse Resp BP Pulse Ox 98.3 F 101 H 20 119/97 98 02/01/19 14:55 02/01/19 14:55 02/01/19 14:55 02/01/19 14:55 02/01/19 09:00 alert in nad Lungs clear heart reg Abd soft nontender Ext no edema CBC, BMP 02/01/19 11:15 02/01/19 14:20 post hd IMP ESRD s/p uneventful HD waiting for outpatient placement
[2019-02-01] MEDS: ATORVASTATIN CA 40 MG TABLET (FP) PO SCH (21:46)
[2019-02-02] MEDS: METOPROLOL TARTRATE 25 MG TABLET (FP) PO SCH ×3 (06:06→21:34)
[2019-02-02] MEDS: hydrALAZINE HCL 50 MG TABLET (FP) PO SCH ×3 (06:07→21:34)
[2019-02-02] MEDS: FERROUS SO4 325 MG TABLET (FP) PO SCH ×2 (08:19→17:09)
[2019-02-02] MEDS: CALCIUM ACETATE 667 MG CAPSULE (FP) PO SCH ×3 (08:19→17:09)
[2019-02-02] MEDS: PHENYTOIN NA EXTENDED 100 MG CAPSULE (FP) PO SCH ×2 (09:58→21:34)
[2019-02-02] MEDS: APIXABAN 5 MG TABLET PO SCH ×2 (09:58→21:34)
[2019-02-02] MEDS: PANTOPRAZOLE 40 MG TABLET (FP) PO SCH (09:58)
[2019-02-02] MEDS: LOSARTAN POTASSIUM 50 MG TABLET (FP) PO SCH (09:59)
[2019-02-02] MEDS: SPIRONOLACTONE 25 MG TABLET (FP) PO SCH (09:59)
[2019-02-02] MEDS: NIFEdipine E.R. 90 MG TABLET (FP) PO SCH (09:59)
--- NOTE | 2019-02-02 12:27 | PN ---
Progress Note, Physician - Current Medication List Current Medications: Active Medications Acetaminophen (Tylenol -) 650 mg PO Q6H PRN PRN Reason: FEVER Last Admin: 01/30/19 19:00 Dose: 650 mg Apixaban (Eliquis -) 5 mg PO BID [facility] Last Admin: 02/02/19 09:58 Dose: 5 mg Atorvastatin Calcium (Lipitor -) 40 mg PO HS [facility] Last Admin: 02/01/19 21:46 Dose: 40 mg Calcium Acetate (Phoslo -) 1,334 mg PO TIDCM [facility] Last Admin: 02/02/19 12:03 Dose: 1,334 mg Fentanyl (Sublimaze Injection -) 25 mcg IVPUSH [id number] PRN PRN Reason: PAIN-PACU ORDER X 4 DOSES ONLY Last Admin: 01/30/19 12:52 Dose: 25 mcg Ferrous Sulfate (Feosol -) 325 mg PO BIDWM [facility] Last Admin: 02/02/19 08:19 Dose: 325 mg Guaifenesin (Robitussin -) 10 ml PO Q6H PRN PRN Reason: COUGH Hydralazine HCl (Apresoline -) 50 mg PO TID [facility] Last Admin: 02/02/19 06:07 Dose: 50 mg Losartan Potassium (Cozaar -) 100 mg PO DAILY [facility] Last Admin: 02/02/19 09:59 Dose: 100 mg Metoprolol Tartrate (Lopressor -) 75 mg PO TID [facility] Last Admin: 02/02/19 06:06 Dose: 75 mg Nifedipine (Procardia Xl -) 90 mg PO DAILY [facility] Last Admin: 02/02/19 09:59 Dose: 90 mg Ondansetron HCl (Zofran Injection) 4 mg IVPUSH Q6H PRN PRN Reason: NAUSEA AND/OR VOMITING Pantoprazole Sodium (Protonix -) 40 mg PO DAILY [facility] Last Admin: 02/02/19 09:58 Dose: 40 mg Phenytoin Sodium (Dilantin -) 200 mg PO BID [facility] Last Admin: 02/02/19 09:58 Dose: 200 mg Spironolactone (Aldactone -) 50 mg PO DAILY [facility] Last Admin: 02/02/19 09:59 Dose: 50 mg - Objective Vital Signs: Vital Signs Temperature 98.3 F 02/02/19 09:00 Pulse Rate 81 02/02/19 09:00 Respiratory Rate 19 02/02/19 09:00 Blood Pressure 147/80 02/02/19 09:00 O2 Sat by Pulse Oximetry (%) 99 02/02/19 09:00 Constitutional: Yes: No Distress HENT: Yes: Atraumatic Neck: Yes: Supple Cardiovascular: Yes: Regular Rate and Rhythm Respiratory: Yes: CTA Bilaterally Gastrointestinal: Yes: Normal Bowel Sounds Extremities: Yes: WNL Edema: No Neurological: Yes: Alert, Oriented Labs: CBC, BMP 02/01/19 11:15 02/01/19 14:20 INR, PTT INR 1.04 (0.83-1.09) 01/30/19 06:10 Problem List - Problems (1) Hyperkalemia Assessment/Plan: K wnl Code(s): E87.5 - HYPERKALEMIA (2) Renal failure Assessment/Plan: ON HD s/p permacath Code(s): N19 - UNSPECIFIED KIDNEY FAILURE Qualifiers: Renal failure chronicity: unspecified chronicity Qualified Code(s): N19 - Unspecified kidney failure (3) Seizure disorder Code(s): G40.909 - EPILEPSY, UNSP, NOT INTRACTABLE, WITHOUT STATUS EPILEPTICUS (4) Anemia Assessment/Plan: stable s/p blood transfusion Code(s): D64.9 - ANEMIA, UNSPECIFIED Qualifiers: Anemia type: unspecified type Qualified Code(s): D64.9 - Anemia, unspecified (5) Acute on chronic diastolic CHF (congestive heart failure) Code(s): I50.33 - ACUTE ON CHRONIC DIASTOLIC (CONGESTIVE) HEART FAILURE (6) Hypercholesterolemia Code(s): E78.00 - PURE HYPERCHOLESTEROLEMIA, UNSPECIFIED (7) Seizures Code(s): R56.9 - UNSPECIFIED CONVULSIONS (8) Sepsis Assessment/Plan: completed abx Code(s): A41.9 - SEPSIS, UNSPECIFIED ORGANISM
--- NOTE | 2019-02-02 12:38 | PN ---
Progress Note, Physician History of Present Illness: stable no new issues off of abx - Current Medication List Current Medications: Active Medications Acetaminophen (Tylenol -) 650 mg PO Q6H PRN PRN Reason: FEVER Last Admin: 01/30/19 19:00 Dose: 650 mg Apixaban (Eliquis -) 5 mg PO BID [facility] Last Admin: 02/02/19 09:58 Dose: 5 mg Atorvastatin Calcium (Lipitor -) 40 mg PO HS [facility] Last Admin: 02/01/19 21:46 Dose: 40 mg Calcium Acetate (Phoslo -) 1,334 mg PO TIDCM [facility] Last Admin: 02/02/19 12:03 Dose: 1,334 mg Fentanyl (Sublimaze Injection -) 25 mcg IVPUSH [id number] PRN PRN Reason: PAIN-PACU ORDER X 4 DOSES ONLY Last Admin: 01/30/19 12:52 Dose: 25 mcg Ferrous Sulfate (Feosol -) 325 mg PO BIDWM [facility] Last Admin: 02/02/19 08:19 Dose: 325 mg Guaifenesin (Robitussin -) 10 ml PO Q6H PRN PRN Reason: COUGH Hydralazine HCl (Apresoline -) 50 mg PO TID [facility] Last Admin: 02/02/19 06:07 Dose: 50 mg Losartan Potassium (Cozaar -) 100 mg PO DAILY [facility] Last Admin: 02/02/19 09:59 Dose: 100 mg Metoprolol Tartrate (Lopressor -) 75 mg PO TID [facility] Last Admin: 02/02/19 06:06 Dose: 75 mg Nifedipine (Procardia Xl -) 90 mg PO DAILY [facility] Last Admin: 02/02/19 09:59 Dose: 90 mg Ondansetron HCl (Zofran Injection) 4 mg IVPUSH Q6H PRN PRN Reason: NAUSEA AND/OR VOMITING Pantoprazole Sodium (Protonix -) 40 mg PO DAILY [facility] Last Admin: 02/02/19 09:58 Dose: 40 mg Phenytoin Sodium (Dilantin -) 200 mg PO BID [facility] Last Admin: 02/02/19 09:58 Dose: 200 mg Spironolactone (Aldactone -) 50 mg PO DAILY [facility] Last Admin: 02/02/19 09:59 Dose: 50 mg - Objective Vital Signs: Vital Signs Temperature 98.3 F 02/02/19 09:00 Pulse Rate 81 06/16/19 09:00 Respiratory Rate 19 02/02/19 09:00 Blood Pressure 147/80 02/02/19 09:00 O2 Sat by Pulse Oximetry (%) 99 02/02/19 09:00 Constitutional: Yes: No Distress, Calm Eyes: Yes: Conjunctiva Clear Cardiovascular: Yes: Regular Rate and Rhythm Respiratory: Yes: Regular, CTA Bilaterally Gastrointestinal: Yes: Normal Bowel Sounds, Soft Musculoskeletal: Yes: WNL Extremities: Yes: WNL Neurological: Yes: Alert, Oriented Psychiatric: Yes: Alert, Oriented Labs: CBC, BMP 02/01/19 11:15 02/01/19 14:20 INR, PTT INR 1.04 (0.83-1.09) 01/30/19 06:10 Assessment/Plan patient looks sick and i am worried that she might take turn for the worse,labd have been ordered ,uncollected Problem List - Problems (1) Anemia Code(s): D64.9 - ANEMIA, UNSPECIFIED Qualifiers: Anemia type: unspecified type Qualified Code(s): D64.9 - Anemia, unspecified (2) Hyperkalemia Code(s): E87.5 - HYPERKALEMIA (3) Renal failure Code(s): N19 - UNSPECIFIED KIDNEY FAILURE Qualifiers: Renal failure chronicity: unspecified chronicity Qualified Code(s): N19 - Unspecified kidney failure sepsis fever plan continue current mgmt dialysis
--- NOTE | 2019-02-02 17:00 | PN ---
Progress Note (short form) - Note Progress Note: esrd s/p HD in am treatment was uneventful Current Medications Acetaminophen (Tylenol -) 650 mg PO Q6H PRN PRN Reason: FEVER Last Admin: 01/30/19 19:00 Dose: 650 mg Apixaban (Eliquis -) 5 mg PO BID [facility] Last Admin: 02/02/19 09:58 Dose: 5 mg Atorvastatin Calcium (Lipitor -) 40 mg PO HS [facility] Last Admin: 02/01/19 21:46 Dose: 40 mg Calcium Acetate (Phoslo -) 1,334 mg PO TIDCM [facility] Last Admin: 02/02/19 12:03 Dose: 1,334 mg Fentanyl (Sublimaze Injection -) 25 mcg IVPUSH [id number] PRN PRN Reason: PAIN-PACU ORDER X 4 DOSES ONLY Last Admin: 01/30/19 12:52 Dose: 25 mcg Ferrous Sulfate (Feosol -) 325 mg PO BIDWM [facility] Last Admin: 02/02/19 08:19 Dose: 325 mg Guaifenesin (Robitussin -) 10 ml PO Q6H PRN PRN Reason: COUGH Hydralazine HCl (Apresoline -) 50 mg PO TID [facility] Last Admin: 02/02/19 14:57 Dose: 50 mg Losartan Potassium (Cozaar -) 100 mg PO DAILY [facility] Last Admin: 02/02/19 09:59 Dose: 100 mg Metoprolol Tartrate (Lopressor -) 75 mg PO TID [facility] Last Admin: 02/02/19 14:57 Dose: 75 mg Nifedipine (Procardia Xl -) 90 mg PO DAILY [facility] Last Admin: 02/02/19 09:59 Dose: 90 mg Ondansetron HCl (Zofran Injection) 4 mg IVPUSH Q6H PRN PRN Reason: NAUSEA AND/OR VOMITING Pantoprazole Sodium (Protonix -) 40 mg PO DAILY [facility] Last Admin: 02/02/19 09:58 Dose: 40 mg Phenytoin Sodium (Dilantin -) 200 mg PO BID [facility] Last Admin: 02/02/19 09:58 Dose: 200 mg Spironolactone (Aldactone -) 50 mg PO DAILY [facility] Last Admin: 02/02/19 09:59 Dose: 50 mg Last Vital Signs Temp Pulse Resp BP Pulse Ox 98.0 F 96 H 18 157/90 99 02/02/19 14:56 02/02/19 14:56 02/02/19 14:56 02/02/19 14:56 02/02/19 09:00 alert in nad Lungs clear heart reg Abd soft nontender Ext no edema CBC, BMP 02/01/19 11:15 02/01/19 14:20 post hd IMP ESRD s/p uneventful HD waiting for outpatient placement
--- NOTE | 2019-02-02 21:14 | PN ---
Progress Note, Physician - Current Medication List Current Medications: Active Medications Acetaminophen (Tylenol -) 650 mg PO Q6H PRN PRN Reason: FEVER Last Admin: 01/30/19 19:00 Dose: 650 mg Apixaban (Eliquis -) 5 mg PO BID [facility] Last Admin: 02/02/19 09:58 Dose: 5 mg Atorvastatin Calcium (Lipitor -) 40 mg PO HS [facility] Last Admin: 02/01/19 21:46 Dose: 40 mg Calcium Acetate (Phoslo -) 1,334 mg PO TIDCM [facility] Last Admin: 02/02/19 17:09 Dose: 1,334 mg Fentanyl (Sublimaze Injection -) 25 mcg IVPUSH [id number] PRN PRN Reason: PAIN-PACU ORDER X 4 DOSES ONLY Last Admin: 01/30/19 12:52 Dose: 25 mcg Ferrous Sulfate (Feosol -) 325 mg PO BIDWM [facility] Last Admin: 02/02/19 17:09 Dose: 325 mg Guaifenesin (Robitussin -) 10 ml PO Q6H PRN PRN Reason: COUGH Hydralazine HCl (Apresoline -) 50 mg PO TID [facility] Last Admin: 02/02/19 14:57 Dose: 50 mg Losartan Potassium (Cozaar -) 100 mg PO DAILY [facility] Last Admin: 02/02/19 09:59 Dose: 100 mg Metoprolol Tartrate (Lopressor -) 75 mg PO TID [facility] Last Admin: 02/02/19 14:57 Dose: 75 mg Nifedipine (Procardia Xl -) 90 mg PO DAILY [facility] Last Admin: 02/02/19 09:59 Dose: 90 mg Ondansetron HCl (Zofran Injection) 4 mg IVPUSH Q6H PRN PRN Reason: NAUSEA AND/OR VOMITING Pantoprazole Sodium (Protonix -) 40 mg PO DAILY [facility] Last Admin: 02/02/19 09:58 Dose: 40 mg Phenytoin Sodium (Dilantin -) 200 mg PO BID [facility] Last Admin: 02/02/19 09:58 Dose: 200 mg Spironolactone (Aldactone -) 50 mg PO DAILY [facility] Last Admin: 02/02/19 09:59 Dose: 50 mg - Objective Vital Signs: Vital Signs Temperature 98.0 F 02/02/19 14:56 Pulse Rate 96 H 02/02/19 14:56 Respiratory Rate 18 02/02/19 14:56 Blood Pressure 157/90 02/02/19 14:56 O2 Sat by Pulse Oximetry (%) 99 02/02/19 09:00 Labs: CBC, BMP 02/01/19 11:15 02/01/19 14:20 INR, PTT INR 1.04 (0.83-1.09) 01/30/19 06:10 Problem List - Problems (1) Acute on chronic diastolic CHF (congestive heart failure) Code(s): I50.33 - ACUTE ON CHRONIC DIASTOLIC (CONGESTIVE) HEART FAILURE (2) Anemia Code(s): D64.9 - ANEMIA, UNSPECIFIED Qualifiers: Anemia type: unspecified type Qualified Code(s): D64.9 - Anemia, unspecified (3) Hypercholesterolemia Code(s): E78.00 - PURE HYPERCHOLESTEROLEMIA, UNSPECIFIED (4) Cigarette nicotine dependence Code(s): F17.210 - NICOTINE DEPENDENCE, CIGARETTES, UNCOMPLICATED (5) [place] cardiac risk >20% in next 10 years Code(s): Z91.89 - OT PERSONAL RISK FACTORS, NOT ELSEWHERE CLASSIFIED (6) Renal failure Code(s): N19 - UNSPECIFIED KIDNEY FAILURE Qualifiers: Renal failure chronicity: unspecified chronicity Qualified Code(s): N19 - Unspecified kidney failure (7) Hypertensive emergency Code(s): I16.1 - HYPERTENSIVE EMERGENCY (8) Lower extremity edema Code(s): R60.0 - LOCALIZED EDEMA (9) Seizures Code(s): R56.9 - UNSPECIFIED CONVULSIONS (10) Osteoarthritis, knee Code(s): M17.10 - UNILATERAL PRIMARY OSTEOARTHRITIS, UNSPECIFIED KNEE (11) PAF (paroxysmal atrial fibrillation) Code(s): I48.0 - PAROXYSMAL ATRIAL FIBRILLATION (12) Hypokalemia Code(s): E87.6 - HYPOKALEMIA (13) Hypomagnesemia Code(s): E83.42 - HYPOMAGNESEMIA
--- NOTE | 2019-02-02 21:15 | PN ---
Progress Note, Physician - Current Medication List Current Medications: Active Medications Acetaminophen (Tylenol -) 650 mg PO Q6H PRN PRN Reason: FEVER Last Admin: 01/30/19 19:00 Dose: 650 mg Apixaban (Eliquis -) 5 mg PO BID [facility] Last Admin: 02/02/19 09:58 Dose: 5 mg Atorvastatin Calcium (Lipitor -) 40 mg PO HS [facility] Last Admin: 02/01/19 21:46 Dose: 40 mg Calcium Acetate (Phoslo -) 1,334 mg PO TIDCM [facility] Last Admin: 02/02/19 17:09 Dose: 1,334 mg Fentanyl (Sublimaze Injection -) 25 mcg IVPUSH [id number] PRN PRN Reason: PAIN-PACU ORDER X 4 DOSES ONLY Last Admin: 01/30/19 12:52 Dose: 25 mcg Ferrous Sulfate (Feosol -) 325 mg PO BIDWM [facility] Last Admin: 02/02/19 17:09 Dose: 325 mg Guaifenesin (Robitussin -) 10 ml PO Q6H PRN PRN Reason: COUGH Hydralazine HCl (Apresoline -) 50 mg PO TID [facility] Last Admin: 02/02/19 14:57 Dose: 50 mg Losartan Potassium (Cozaar -) 100 mg PO DAILY [facility] Last Admin: 02/02/19 09:59 Dose: 100 mg Metoprolol Tartrate (Lopressor -) 75 mg PO TID [facility] Last Admin: 02/02/19 14:57 Dose: 75 mg Nifedipine (Procardia Xl -) 90 mg PO DAILY [facility] Last Admin: 02/02/19 09:59 Dose: 90 mg Ondansetron HCl (Zofran Injection) 4 mg IVPUSH Q6H PRN PRN Reason: NAUSEA AND/OR VOMITING Pantoprazole Sodium (Protonix -) 40 mg PO DAILY [facility] Last Admin: 02/02/19 09:58 Dose: 40 mg Phenytoin Sodium (Dilantin -) 200 mg PO BID [facility] Last Admin: 02/02/19 09:58 Dose: 200 mg Spironolactone (Aldactone -) 50 mg PO DAILY [facility] Last Admin: 02/02/19 09:59 Dose: 50 mg - Objective Vital Signs: Vital Signs Temperature 98.0 F 02/02/19 14:56 Pulse Rate 96 H 02/02/19 14:56 Respiratory Rate 18 02/02/19 14:56 Blood Pressure 157/90 02/02/19 14:56 O2 Sat by Pulse Oximetry (%) 99 02/02/19 09:00 Labs: CBC, BMP 02/01/19 11:15 02/01/19 14:20 INR, PTT INR 1.04 (0.83-1.09) 01/30/19 06:10 Problem List - Problems (1) Acute on chronic diastolic CHF (congestive heart failure) Code(s): I50.33 - ACUTE ON CHRONIC DIASTOLIC (CONGESTIVE) HEART FAILURE (2) Anemia Code(s): D64.9 - ANEMIA, UNSPECIFIED Qualifiers: Anemia type: unspecified type Qualified Code(s): D64.9 - Anemia, unspecified (3) Hypercholesterolemia Code(s): E78.00 - PURE HYPERCHOLESTEROLEMIA, UNSPECIFIED (4) Cigarette nicotine dependence Code(s): F17.210 - NICOTINE DEPENDENCE, CIGARETTES, UNCOMPLICATED (5) [place] cardiac risk >20% in next 10 years Code(s): Z91.89 - OT PERSONAL RISK FACTORS, NOT ELSEWHERE CLASSIFIED (6) Renal failure Code(s): N19 - UNSPECIFIED KIDNEY FAILURE Qualifiers: Renal failure chronicity: unspecified chronicity Qualified Code(s): N19 - Unspecified kidney failure (7) Hypertensive emergency Code(s): I16.1 - HYPERTENSIVE EMERGENCY (8) Lower extremity edema Code(s): R60.0 - LOCALIZED EDEMA (9) Seizures Code(s): R56.9 - UNSPECIFIED CONVULSIONS (10) Osteoarthritis, knee Code(s): M17.10 - UNILATERAL PRIMARY OSTEOARTHRITIS, UNSPECIFIED KNEE (11) PAF (paroxysmal atrial fibrillation) Code(s): I48.0 - PAROXYSMAL ATRIAL FIBRILLATION (12) Hypokalemia Code(s): E87.6 - HYPOKALEMIA (13) Hypomagnesemia Code(s): E83.42 - HYPOMAGNESEMIA
[2019-02-02] MEDS: ATORVASTATIN CA 40 MG TABLET (FP) PO SCH (21:34)
[2019-02-03] MEDS: METOPROLOL TARTRATE 25 MG TABLET (FP) PO SCH ×3 (05:46→21:18)
[2019-02-03] MEDS: hydrALAZINE HCL 50 MG TABLET (FP) PO SCH ×3 (05:46→21:18)
[2019-02-03] MEDS: CALCIUM ACETATE 667 MG CAPSULE (FP) PO SCH ×3 (08:20→16:58)
[2019-02-03] MEDS: FERROUS SO4 325 MG TABLET (FP) PO SCH ×2 (08:20→16:58)
--- NOTE | 2019-02-03 08:40 | PN ---
Progress Note, Physician Chief Complaint: Pt alert and oriented; no chest pain, dypnea, or LE pain. Says she is not ready togo to rehab faicility. History of Present Illness: The patient is a 58 year old black female with a past medical history of HTN, copd chronic arthritis, and CVA (2017, 2018) anemia, CKD, diastolic chf, seizure disorder here today for evaluation of lower extremity edema. The patient reports that she has had 3 weeks of bilateral lower extremity edema which has been getting progressively worse. She also notes an intermittent productive cough of yellow sputum. today she was getting up from toilet and lost her balance, fell over. states she got tangled in pants trying to pull them up. Patient denies headache, lightheadedness. Denies fever, chills. Denies chest pain, shortness of breath. Denies nausea, vomiting, diarrhea, abdominal pain. Allergies: NKA Social history: Patient confirms tobacco use ( pack per day for the last 40 years). Denies illicit drugs or alcohol use. - Current Medication List Current Medications: Active Medications Acetaminophen (Tylenol -) 650 mg PO Q6H PRN PRN Reason: FEVER Last Admin: 01/30/19 19:00 Dose: 650 mg Apixaban (Eliquis -) 5 mg PO BID [facility] Last Admin: 02/02/19 21:34 Dose: 5 mg Atorvastatin Calcium (Lipitor -) 40 mg PO HS [facility] Last Admin: 02/02/19 21:34 Dose: 40 mg Calcium Acetate (Phoslo -) 1,334 mg PO TIDCM [facility] Last Admin: 02/03/19 08:20 Dose: 1,334 mg Fentanyl (Sublimaze Injection -) 25 mcg IVPUSH [id number] PRN PRN Reason: PAIN-PACU ORDER X 4 DOSES ONLY Last Admin: 01/30/19 12:52 Dose: 25 mcg Ferrous Sulfate (Feosol -) 325 mg PO BIDWM [facility] Last Admin: 02/03/19 08:20 Dose: 325 mg Guaifenesin (Robitussin -) 10 ml PO Q6H PRN PRN Reason: COUGH Hydralazine HCl (Apresoline -) 50 mg PO TID [facility] Last Admin: 02/03/19 05:46 Dose: 50 mg Losartan Potassium (Cozaar -) 100 mg PO DAILY [facility] Last Admin: 02/02/19 09:59 Dose: 100 mg Metoprolol Tartrate (Lopressor -) 75 mg PO TID [facility] Last Admin: 02/03/19 05:46 Dose: 75 mg Nifedipine (Procardia Xl -) 90 mg PO DAILY [facility] Last Admin: 02/02/19 09:59 Dose: 90 mg Ondansetron HCl (Zofran Injection) 4 mg IVPUSH Q6H PRN PRN Reason: NAUSEA AND/OR VOMITING Pantoprazole Sodium (Protonix -) 40 mg PO DAILY [facility] Last Admin: 02/02/19 09:58 Dose: 40 mg Phenytoin Sodium (Dilantin -) 200 mg PO BID [facility] Last Admin: 02/02/19 21:34 Dose: 200 mg Spironolactone (Aldactone -) 50 mg PO DAILY [facility] Last Admin: 02/02/19 09:59 Dose: 50 mg - Objective Vital Signs: Vital Signs Temperature 98.4 F 02/03/19 06:14 Pulse Rate 83 02/03/19 06:14 Respiratory Rate 20 02/03/19 06:14 Blood Pressure 148/93 02/03/19 06:14 O2 Sat by Pulse Oximetry (%) 99 02/02/19 22:00 Constitutional: Yes: Calm Labs: CBC, BMP 02/01/19 11:15 02/01/19 14:20 INR, PTT INR 1.04 (0.83-1.09) 01/30/19 06:10 Problem List - Problems (1) Acute on chronic diastolic CHF (congestive heart failure) Assessment/Plan: On metoprolol tartrate nifedipine, losartan, hydralazine, and spironolactone. F/u BUN/Cr, electrolytes, daily wt, Is and Os. Code(s): I50.33 - ACUTE ON CHRONIC DIASTOLIC (CONGESTIVE) HEART FAILURE (2) Anemia Assessment/Plan: on iron supplements. Now on apixaban (PAF). F/u stool quaiac; f/u Hb. Code(s): D64.9 - ANEMIA, UNSPECIFIED Qualifiers: Anemia type: unspecified type Qualified Code(s): D64.9 - Anemia, unspecified (3) Hypercholesterolemia Assessment/Plan: on atorvastatin; increase dose to keep LDL < 70 mg/dl. Code(s): E78.00 - PURE HYPERCHOLESTEROLEMIA, UNSPECIFIED (4) Cigarette nicotine dependence Code(s): F17.210 - NICOTINE DEPENDENCE, CIGARETTES, UNCOMPLICATED (5) [place] cardiac risk >20% in next 10 years Assessment/Plan: stress MIBI when stable, if not done recently. Pt's body weight/habitus may make this problematic. Code(s): Z91.89 - OTH PERSONAL RISK FACTORS, NOT ELSEWHERE CLASSIFIED (6) Renal failure Code(s): N19 - UNSPECIFIED KIDNEY FAILURE Qualifiers: Renal failure chronicity: unspecified chronicity Qualified Code(s): N19 - Unspecified kidney failure (7) Hypertensive emergency Code(s): I16.1 - HYPERTENSIVE EMERGENCY (8) Lower extremity edema Code(s): R60.0 - LOCALIZED EDEMA (9) Seizures Code(s): R56.9 - UNSPECIFIED CONVULSIONS (10) Osteoarthritis, knee Code(s): M17.10 - UNILATERAL PRIMARY OSTEOARTHRITIS, UNSPECIFIED KNEE (11) PAF (paroxysmal atrial fibrillation) Assessment/Plan: PAF; now in NSR. Continue metoprolol; on apixaban for anticoagulation. Code(s): I48.0 - PAROXYSMAL ATRIAL FIBRILLATION (12) Hypokalemia Code(s): E87.6 - HYPOKALEMIA (13) Hypomagnesemia Code(s): E83.42 - HYPOMAGNESEMIA
--- NOTE | 2019-02-03 09:52 | PN ---
Progress Note, Physician History of Present Illness: patient stable doing well no issues - Current Medication List Current Medications: Active Medications Acetaminophen (Tylenol -) 650 mg PO Q6H PRN PRN Reason: FEVER Last Admin: 01/30/19 19:00 Dose: 650 mg Apixaban (Eliquis -) 5 mg PO BID [facility] Last Admin: 02/02/19 21:34 Dose: 5 mg Atorvastatin Calcium (Lipitor -) 40 mg PO HS [facility] Last Admin: 02/02/19 21:34 Dose: 40 mg Calcium Acetate (Phoslo -) 1,334 mg PO TIDCM [facility] Last Admin: 02/03/19 08:20 Dose: 1,334 mg Fentanyl (Sublimaze Injection -) 25 mcg IVPUSH [id number] PRN PRN Reason: PAIN-PACU ORDER X 4 DOSES ONLY Last Admin: 01/30/19 12:52 Dose: 25 mcg Ferrous Sulfate (Feosol -) 325 mg PO BIDWM [facility] Last Admin: 02/03/19 08:20 Dose: 325 mg Guaifenesin (Robitussin -) 10 ml PO Q6H PRN PRN Reason: COUGH Hydralazine HCl (Apresoline -) 50 mg PO TID [facility] Last Admin: 02/03/19 05:46 Dose: 50 mg Losartan Potassium (Cozaar -) 100 mg PO DAILY [facility] Last Admin: 02/02/19 09:59 Dose: 100 mg Metoprolol Tartrate (Lopressor -) 75 mg PO TID [facility] Last Admin: 02/03/19 05:46 Dose: 75 mg Nifedipine (Procardia Xl -) 90 mg PO DAILY [facility] Last Admin: 02/02/19 09:59 Dose: 90 mg Ondansetron HCl (Zofran Injection) 4 mg IVPUSH Q6H PRN PRN Reason: NAUSEA AND/OR VOMITING Pantoprazole Sodium (Protonix -) 40 mg PO DAILY [facility] Last Admin: 02/02/19 09:58 Dose: 40 mg Phenytoin Sodium (Dilantin -) 200 mg PO BID [facility] Last Admin: 02/02/19 21:34 Dose: 200 mg Spironolactone (Aldactone -) 50 mg PO DAILY [facility] Last Admin: 02/02/19 09:59 Dose: 50 mg - Objective Vital Signs: Vital Signs Temperature 98.4 F 06/17/19 06:14 Pulse Rate 83 02/03/19 06:14 Respiratory Rate 20 02/03/19 06:14 Blood Pressure 148/93 02/03/19 06:14 O2 Sat by Pulse Oximetry (%) 99 02/02/19 22:00 Constitutional: Yes: No Distress, Calm Cardiovascular: Yes: Regular Rate and Rhythm Respiratory: Yes: Regular, CTA Bilaterally Gastrointestinal: Yes: Normal Bowel Sounds, Soft Musculoskeletal: Yes: WNL Extremities: Yes: WNL Neurological: Yes: Alert, Oriented Psychiatric: Yes: Alert, Oriented Labs: CBC, BMP 02/01/19 11:15 02/01/19 14:20 INR, PTT INR 1.04 (0.83-1.09) 01/30/19 06:10 Assessment/Plan patient looks sick and i am worried that she might take turn for the worse,labd have been ordered ,uncollected Problem List - Problems (1) Anemia Code(s): D64.9 - ANEMIA, UNSPECIFIED Qualifiers: Anemia type: unspecified type Qualified Code(s): D64.9 - Anemia, unspecified (2) Hyperkalemia Code(s): E87.5 - HYPERKALEMIA (3) Renal failure Code(s): N19 - UNSPECIFIED KIDNEY FAILURE Qualifiers: Renal failure chronicity: unspecified chronicity Qualified Code(s): N19 - Unspecified kidney failure sepsis fever plan continue current mgmt stable monitor dialysis rest as per the team
[2019-02-03] MEDS: LOSARTAN POTASSIUM 50 MG TABLET (FP) PO SCH (09:56)
[2019-02-03] MEDS: PHENYTOIN NA EXTENDED 100 MG CAPSULE (FP) PO SCH ×2 (09:56→21:17)
[2019-02-03] MEDS: SPIRONOLACTONE 25 MG TABLET (FP) PO SCH (09:56)
[2019-02-03] MEDS: NIFEdipine E.R. 90 MG TABLET (FP) PO SCH (09:57)
[2019-02-03] MEDS: APIXABAN 5 MG TABLET PO SCH ×2 (09:57→21:18)
[2019-02-03] MEDS: PANTOPRAZOLE 40 MG TABLET (FP) PO SCH (09:57)
--- NOTE | 2019-02-03 11:23 | PN ---
Progress Note, Physician History of Present Illness: Pt seen and examined at bedside. She is awake and alert. She denies shortness of breath. - Current Medication List Current Medications: Active Medications Acetaminophen (Tylenol -) 650 mg PO Q6H PRN PRN Reason: FEVER Last Admin: 01/30/19 19:00 Dose: 650 mg Apixaban (Eliquis -) 5 mg PO BID [facility] Last Admin: 02/03/19 09:57 Dose: 5 mg Atorvastatin Calcium (Lipitor -) 40 mg PO HS [facility] Last Admin: 02/02/19 21:34 Dose: 40 mg Calcium Acetate (Phoslo -) 1,334 mg PO TIDCM [facility] Last Admin: 02/03/19 08:20 Dose: 1,334 mg Fentanyl (Sublimaze Injection -) 25 mcg IVPUSH [id number] PRN PRN Reason: PAIN-PACU ORDER X 4 DOSES ONLY Last Admin: 01/30/19 12:52 Dose: 25 mcg Ferrous Sulfate (Feosol -) 325 mg PO BIDWM [facility] Last Admin: 02/03/19 08:20 Dose: 325 mg Guaifenesin (Robitussin -) 10 ml PO Q6H PRN PRN Reason: COUGH Hydralazine HCl (Apresoline -) 50 mg PO TID [facility] Last Admin: 02/03/19 05:46 Dose: 50 mg Losartan Potassium (Cozaar -) 100 mg PO DAILY [facility] Last Admin: 02/03/19 09:56 Dose: 100 mg Metoprolol Tartrate (Lopressor -) 75 mg PO TID [facility] Last Admin: 02/03/19 05:46 Dose: 75 mg Nifedipine (Procardia Xl -) 90 mg PO DAILY [facility] Last Admin: 02/03/19 09:57 Dose: 90 mg Ondansetron HCl (Zofran Injection) 4 mg IVPUSH Q6H PRN PRN Reason: NAUSEA AND/OR VOMITING Pantoprazole Sodium (Protonix -) 40 mg PO DAILY [facility] Last Admin: 02/03/19 09:57 Dose: 40 mg Phenytoin Sodium (Dilantin -) 200 mg PO BID [facility] Last Admin: 02/03/19 09:56 Dose: 200 mg Spironolactone (Aldactone -) 50 mg PO DAILY [facility] Last Admin: 02/03/19 09:56 Dose: 50 mg - Objective Vital Signs: Vital Signs Temperature 98.4 F 02/03/19 06:14 Pulse Rate 83 02/03/19 06:14 Respiratory Rate 20 02/03/19 06:14 Blood Pressure 148/93 02/03/19 06:14 O2 Sat by Pulse Oximetry (%) 99 02/02/19 22:00 Constitutional: Yes: Calm Eyes: Yes: Conjunctiva Clear HENT: Yes: Atraumatic Cardiovascular: Yes: S1, S2 Respiratory: Yes: CTA Bilaterally Gastrointestinal: Yes: Soft, Abdomen, Obese Genitourinary: Yes: WNL Musculoskeletal: Yes: WNL Edema: Yes Neurological: Yes: Oriented Psychiatric: Yes: Oriented Labs: CBC, BMP 02/01/19 11:15 02/01/19 14:20 INR, PTT INR 1.04 (0.83-1.09) 01/30/19 06:10 Problem List - Problems (1) Anemia Code(s): D64.9 - ANEMIA, UNSPECIFIED Qualifiers: Anemia type: unspecified type Qualified Code(s): D64.9 - Anemia, unspecified (2) Hyperkalemia Code(s): E87.5 - HYPERKALEMIA (3) Renal failure Code(s): N19 - UNSPECIFIED KIDNEY FAILURE Qualifiers: Renal failure chronicity: unspecified chronicity Qualified Code(s): N19 - Unspecified kidney failure Assessment/Plan Current Medications Generic Name Dose Route Start Last Admin Trade Name Freq PRN Reason Stop Dose Admin Acetaminophen 650 mg 01/30/19 12:42 01/30/19 19:00 Tylenol - PO 650 mg Q6H PRN Administration FEVER Apixaban 5 mg 01/31/19 22:00 02/03/19 09:57 Eliquis - PO 5 mg BID [facility] Administration Atorvastatin Calcium 40 mg 01/30/19 22:00 02/02/19 21:34 Lipitor - PO 40 mg HS [facility] Administration Calcium Acetate 1,334 mg 01/30/19 17:30 02/03/19 08:20 Phoslo - PO 1,334 mg TIDCM [facility] Administration Fentanyl 25 mcg 01/30/19 12:42 01/30/19 12:52 Sublimaze Injection - IVPUSH 25 mcg [id number] PRN Administration PAIN-PACU ORDER X 4 DOSES ONLY Ferrous Sulfate 325 mg 01/30/19 17:30 02/03/19 08:20 Feosol - PO 325 mg BIDWM [facility] Administration Guaifenesin 10 ml 01/30/19 12:42 Robitussin - PO Q6H PRN COUGH Hydralazine HCl 50 mg 01/30/19 14:00 02/03/19 05:46 Apresoline - PO 50 mg TID [facility] Administration Losartan Potassium 100 mg 01/31/19 10:00 02/03/19 09:56 Cozaar - PO 100 mg DAILY [facility] Administration Metoprolol Tartrate 75 mg 01/30/19 14:00 02/03/19 05:46 Lopressor - PO 75 mg TID [facility] Administration Nifedipine 90 mg 01/31/19 10:00 02/03/19 09:57 Procardia Xl - PO 90 mg DAILY [facility] Administration Ondansetron HCl 4 mg 01/30/19 12:42 Zofran Injection IVPUSH Q6H PRN NAUSEA AND/OR VOMITING Pantoprazole Sodium 40 mg 01/31/19 10:00 02/03/19 09:57 Protonix - PO 40 mg DAILY [facility] Administration Phenytoin Sodium 200 mg 01/30/19 22:00 02/03/19 09:56 Dilantin - PO 200 mg BID [facility] Administration Spironolactone 50 mg 01/31/19 10:00 02/03/19 09:56 Aldactone - PO 50 mg DAILY [facility] Administration Laboratory Tests 01/31/19 11:15 Hepatitis A Ab Total Pending Hep Bs Antibody Pending Hep B Core Total Ab Pending Hep B Core IgM Ab Pending HCV Quantitation Pending Impression 1. SOHAIL 2. lower ext edema 3. anemia 4. HTN 5. arthritis 6. nephrotic range proteinura 7. obesity 8. positive hep c virus on last admission 9. CKD 10. ESRD 11. hypokalemia 12. a-fib Plan - follow serology - hd tomorrow - send hd info to [facility] for renal care for rehab and inpt HD - renal diet
--- NOTE | 2019-02-03 17:06 | PATH ---
Surgical Pathology Report Patient Name: GONZALO ROBLES Med. Rec. #: [id number] /Age/Gender: 1960 (Age: 58) / F Account: [id number] Location: [address] [place] [address]/[facility] Taken: 01/30/2019 Received: 01/31/2019 Reported: 02/03/2019 Physicians: Juan Giron Specimen(s) Received DIALYSIS CATHETER Clinical History End stage renal disease Final Diagnosis DIALYSIS CATHETER, REMOVAL: CATHETER. MACROSCOPIC DIAGNOSIS. Electronically Signed Whit Martinez M.D. Gross Description Received fresh labeled "dialysis catheter," is a 28 cm in length triple lumen catheter. No soft tissue is present. No sections are submitted, gross only. /01/31/201901/31/2019
[2019-02-03] MEDS ORDERED: PT OWN MED DRAWER 7, Y5N ONE (17:23)
--- NOTE | 2019-02-03 19:28 | PN ---
Progress Note, Physician History of Present Illness: doing well - Current Medication List Current Medications: Active Medications Acetaminophen (Tylenol -) 650 mg PO Q6H PRN PRN Reason: FEVER Last Admin: 01/30/19 19:00 Dose: 650 mg Apixaban (Eliquis -) 5 mg PO BID [facility] Last Admin: 02/03/19 09:57 Dose: 5 mg Atorvastatin Calcium (Lipitor -) 40 mg PO HS [facility] Last Admin: 02/02/19 21:34 Dose: 40 mg Calcium Acetate (Phoslo -) 1,334 mg PO TIDCM [facility] Last Admin: 02/03/19 16:58 Dose: 1,334 mg Fentanyl (Sublimaze Injection -) 25 mcg IVPUSH [id number] PRN PRN Reason: PAIN-PACU ORDER X 4 DOSES ONLY Last Admin: 01/30/19 12:52 Dose: 25 mcg Ferrous Sulfate (Feosol -) 325 mg PO BIDWM [facility] Last Admin: 02/03/19 16:58 Dose: 325 mg Guaifenesin (Robitussin -) 10 ml PO Q6H PRN PRN Reason: COUGH Hydralazine HCl (Apresoline -) 50 mg PO TID [facility] Last Admin: 02/03/19 14:53 Dose: 50 mg Losartan Potassium (Cozaar -) 100 mg PO DAILY [facility] Last Admin: 02/03/19 09:56 Dose: 100 mg Metoprolol Tartrate (Lopressor -) 75 mg PO TID [facility] Last Admin: 02/03/19 14:52 Dose: 75 mg Nifedipine (Procardia Xl -) 90 mg PO DAILY [facility] Last Admin: 02/03/19 09:57 Dose: 90 mg Ondansetron HCl (Zofran Injection) 4 mg IVPUSH Q6H PRN PRN Reason: NAUSEA AND/OR VOMITING Pantoprazole Sodium (Protonix -) 40 mg PO DAILY [facility] Last Admin: 02/03/19 09:57 Dose: 40 mg Phenytoin Sodium (Dilantin -) 200 mg PO BID [facility] Last Admin: 02/03/19 09:56 Dose: 200 mg Spironolactone (Aldactone -) 50 mg PO DAILY [facility] Last Admin: 02/03/19 09:56 Dose: 50 mg - Objective Vital Signs: Vital Signs Temperature 98.7 F 02/03/19 17:50 Pulse Rate 80 02/03/19 17:50 Respiratory Rate 20 02/03/19 17:50 Blood Pressure 150/95 02/03/19 17:50 O2 Sat by Pulse Oximetry (%) 98 02/03/19 09:00 Constitutional: Yes: No Distress HENT: Yes: Atraumatic Neck: Yes: Supple Cardiovascular: Yes: Regular Rate and Rhythm Respiratory: Yes: CTA Bilaterally Gastrointestinal: Yes: Normal Bowel Sounds Extremities: Yes: WNL Edema: No Peripheral Pulses WNL: Yes Neurological: Yes: Alert, Oriented Labs: CBC, BMP 02/01/19 11:15 02/01/19 14:20 INR, PTT INR 1.04 (0.83-1.09) 01/30/19 06:10 Problem List - Problems (1) Hyperkalemia Assessment/Plan: K wnl Code(s): E87.5 - HYPERKALEMIA (2) Renal failure Assessment/Plan: ON HD s/p permacath Code(s): N19 - UNSPECIFIED KIDNEY FAILURE Qualifiers: Renal failure chronicity: unspecified chronicity Qualified Code(s): N19 - Unspecified kidney failure (3) Seizure disorder Code(s): G40.909 - EPILEPSY, UNSP, NOT INTRACTABLE, WITHOUT STATUS EPILEPTICUS (4) Anemia Assessment/Plan: stable s/p blood transfusion Code(s): D64.9 - ANEMIA, UNSPECIFIED Qualifiers: Anemia type: unspecified type Qualified Code(s): D64.9 - Anemia, unspecified (5) Acute on chronic diastolic CHF (congestive heart failure) Code(s): I50.33 - ACUTE ON CHRONIC DIASTOLIC (CONGESTIVE) HEART FAILURE (6) Hypercholesterolemia Code(s): E78.00 - PURE HYPERCHOLESTEROLEMIA, UNSPECIFIED (7) Seizures Code(s): R56.9 - UNSPECIFIED CONVULSIONS (8) Sepsis Assessment/Plan: completed abx Code(s): A41.9 - SEPSIS, UNSPECIFIED ORGANISM Assessment/Plan d/w neuro ok totake eliquis and phenytoin together
[2019-02-03] MEDS: ATORVASTATIN CA 40 MG TABLET (FP) PO SCH (21:18)
[2019-02-03 22:11] LABS: HEP B CORE AB, TOT Negative (Negative); HEPATITIS B CORE ANTIBODY,IGM Negative (Negative)
[2019-02-04] MEDS: METOPROLOL TARTRATE 25 MG TABLET (FP) PO SCH ×3 (05:11→21:31)
[2019-02-04] MEDS: hydrALAZINE HCL 50 MG TABLET (FP) PO SCH ×3 (05:11→21:31)
[2019-02-04] MEDS: FERROUS SO4 325 MG TABLET (FP) PO SCH ×2 (10:22→17:13)
[2019-02-04] MEDS: CALCIUM ACETATE 667 MG CAPSULE (FP) PO SCH ×3 (10:23→17:12)
[2019-02-04] MEDS: SPIRONOLACTONE 25 MG TABLET (FP) PO SCH ×2 (10:23→11:41)
[2019-02-04] MEDS: LOSARTAN POTASSIUM 50 MG TABLET (FP) PO SCH ×2 (10:27→11:42)
[2019-02-04] MEDS: PHENYTOIN NA EXTENDED 100 MG CAPSULE (FP) PO SCH ×2 (10:27→21:31)
[2019-02-04] MEDS: APIXABAN 5 MG TABLET PO SCH ×2 (10:28→21:31)
[2019-02-04] MEDS: PANTOPRAZOLE 40 MG TABLET (FP) PO SCH (10:28)
[2019-02-04 10:55] LABS: HEMATOCRIT 22.4 % (32.4-45.2); HEMOGLOBIN 7.8 GM/dL (10.7-15.3); MCH 33.2 pg (25.7-33.7); MCHC 35.1 g/dl (32.0-36.0); MEAN CELL VOLUME 94.6 fl (80-96); MEAN PLT VOLUME 6.5 fl (7.5-11.1); PLATELET COUNT 285 K/MM3 (134-434); RBC 2.37 M/mm3 (3.60-5.2); RDW 15.3 % (11.6-15.6); WHITE BLOOD COUNT 9.4 K/mm3 (4.0-10.0)
[2019-02-04] MEDS ORDERED: EPOETIN ALFA 2,000 UNIT/1 ML VIAL IVPUSH ONE (11:00)
[2019-02-04 11:04] LABS: BLOOD UREA NITROGEN 21.5 mg/dL (7-18); CALCIUM 8.3 mg/dL (8.5-10.1); CREATININE 4.6 mg/dL (0.55-1.3)
[2019-02-04] MEDS ORDERED: PT OWN MED DRAWER 7, Y5N ONE (11:35)
[2019-02-04] MEDS: NIFEdipine E.R. 90 MG TABLET (FP) PO SCH (11:42)
--- NOTE | 2019-02-04 11:47 | PN ---
Progress Note, Physician History of Present Illness: Pt seen and examined at bedside. She is awake and alert. She is tolerating HD. - Current Medication List Current Medications: Active Medications Acetaminophen (Tylenol -) 650 mg PO Q6H PRN PRN Reason: FEVER Last Admin: 01/30/19 19:00 Dose: 650 mg Apixaban (Eliquis -) 5 mg PO BID [facility] Last Admin: 02/04/19 10:28 Dose: Not Given Atorvastatin Calcium (Lipitor -) 40 mg PO HS [facility] Last Admin: 02/03/19 21:18 Dose: 40 mg Calcium Acetate (Phoslo -) 1,334 mg PO TIDCM [facility] Last Admin: 02/04/19 10:23 Dose: Not Given Epoetin Ziyad (Procrit -) 10,000 unit IVPUSH ONCE ONE Stop: 02/04/19 12:01 Fentanyl (Sublimaze Injection -) 25 mcg IVPUSH [id number] PRN PRN Reason: PAIN-PACU ORDER X 4 DOSES ONLY Last Admin: 01/30/19 12:52 Dose: 25 mcg Ferrous Sulfate (Feosol -) 325 mg PO BIDWM [facility] Last Admin: 02/04/19 10:22 Dose: Not Given Guaifenesin (Robitussin -) 10 ml PO Q6H PRN PRN Reason: COUGH Hydralazine HCl (Apresoline -) 50 mg PO TID [facility] Last Admin: 02/04/19 05:11 Dose: 50 mg Losartan Potassium (Cozaar -) 100 mg PO DAILY [facility] Last Admin: 02/04/19 11:42 Dose: 100 mg Metoprolol Tartrate (Lopressor -) 75 mg PO TID [facility] Last Admin: 02/04/19 05:11 Dose: 75 mg Nifedipine (Procardia Xl -) 90 mg PO DAILY [facility] Last Admin: 02/04/19 11:42 Dose: 90 mg Ondansetron HCl (Zofran Injection) 4 mg IVPUSH Q6H PRN PRN Reason: NAUSEA AND/OR VOMITING Pantoprazole Sodium (Protonix -) 40 mg PO DAILY [facility] Last Admin: 02/04/19 10:28 Dose: Not Given Phenytoin Sodium (Dilantin -) 200 mg PO BID [facility] Last Admin: 02/04/19 10:27 Dose: Not Given Spironolactone (Aldactone -) 50 mg PO DAILY [facility] Last Admin: 02/04/19 11:41 Dose: 50 mg - Objective Vital Signs: Vital Signs Temperature 98.6 F 02/04/19 10:00 Pulse Rate 82 02/04/19 11:20 Respiratory Rate 18 02/04/19 11:20 Blood Pressure 167/109 H 02/04/19 11:20 O2 Sat by Pulse Oximetry (%) 97 02/03/19 21:00 Constitutional: Yes: Calm Eyes: Yes: Conjunctiva Clear HENT: Yes: Atraumatic Neck: Yes: Supple Cardiovascular: Yes: S1, S2 Respiratory: Yes: CTA Bilaterally Gastrointestinal: Yes: Soft, Abdomen, Obese Genitourinary: Yes: WNL Musculoskeletal: Yes: WNL Edema: Yes Edema: LLE: 1+, RLE: 1+ Neurological: Yes: Oriented Psychiatric: Yes: Oriented Labs: CBC, BMP 02/04/19 09:50 02/04/19 09:12 INR, PTT INR 1.04 (0.83-1.09) 01/30/19 06:10 Problem List - Problems (1) Anemia Code(s): D64.9 - ANEMIA, UNSPECIFIED Qualifiers: Anemia type: unspecified type Qualified Code(s): D64.9 - Anemia, unspecified (2) Hyperkalemia Code(s): E87.5 - HYPERKALEMIA (3) Renal failure Code(s): N19 - UNSPECIFIED KIDNEY FAILURE Qualifiers: Renal failure chronicity: unspecified chronicity Qualified Code(s): N19 - Unspecified kidney failure Assessment/Plan Current Medications Generic Name Dose Route Start Last Admin Trade Name Shannan PRN Reason Stop Dose Admin Acetaminophen 650 mg 01/30/19 12:42 01/30/19 19:00 Tylenol - PO 650 mg Q6H PRN Administration FEVER Apixaban 5 mg 01/31/19 22:00 02/04/19 10:28 Eliquis - PO Not Given BID [facility] Atorvastatin Calcium 40 mg 01/30/19 22:00 02/03/19 21:18 Lipitor - PO 40 mg HS [facility] Administration Calcium Acetate 1,334 mg 01/30/19 17:30 02/04/19 10:23 Phoslo - PO Not Given TIDCM [facility] Epoetin Ziyad 10,000 unit 02/04/19 12:00 Procrit - IVPUSH 02/04/19 12:01 ONCE ONE Fentanyl 25 mcg 01/30/19 12:42 01/30/19 12:52 Sublimaze Injection - IVPUSH 25 mcg [id number] PRN Administration PAIN-PACU ORDER X 4 DOSES ONLY Ferrous Sulfate 325 mg 01/30/19 17:30 02/04/19 10:22 Feosol - PO Not Given BIDWM [facility] Guaifenesin 10 ml 01/30/19 12:42 Robitussin - PO Q6H PRN COUGH Hydralazine HCl 50 mg 01/30/19 14:00 02/04/19 05:11 Apresoline - PO 50 mg TID [facility] Administration Losartan Potassium 100 mg 01/31/19 10:00 02/04/19 11:42 Cozaar - PO 100 mg DAILY [facility] Administration Metoprolol Tartrate 75 mg 01/30/19 14:00 02/04/19 05:11 Lopressor - PO 75 mg TID [facility] Administration Nifedipine 90 mg 01/31/19 10:00 02/04/19 11:42 Procardia Xl - PO 90 mg DAILY [facility] Administration Ondansetron HCl 4 mg 01/30/19 12:42 Zofran Injection IVPUSH Q6H PRN NAUSEA AND/OR VOMITING Pantoprazole Sodium 40 mg 01/31/19 10:00 02/04/19 10:28 Protonix - PO Not Given DAILY [facility] Phenytoin Sodium 200 mg 01/30/19 22:00 02/04/19 10:27 Dilantin - PO Not Given BID [facility] Spironolactone 50 mg 01/31/19 10:00 02/04/19 11:41 Aldactone - PO 50 mg DAILY [facility] Administration Laboratory Tests 01/31/19 11:15 Hepatitis A Ab Total Negative Hep Bs Antibody Non reactive Hep B Core Total Ab Negative Hep B Core IgM Ab Negative HCV Quantitation [id number] HCV RNA log copies/mL 6.083 Impression 1. SOHAIL 2. lower ext edema 3. anemia 4. HTN 5. arthritis 6. nephrotic range proteinura 7. obesity 8. positive hep c virus on last admission 9. CKD 10. ESRD 11. hypokalemia 12. a-fib 13. hep c Plan - HD today - pending placement to either [facility] for renal care or [place] with transport to [facility] for HD - will need to see GI for hep C evaluation - epogen for anemia - renal diet
[2019-02-04] MEDS ORDERED: EPOETIN ALFA 10,000 UNIT/1 ML VIAL IVPUSH ONE (12:00)
--- NOTE | 2019-02-04 15:09 | PN ---
Progress Note, Physician History of Present Illness: stable no new issues - Current Medication List Current Medications: Active Medications Acetaminophen (Tylenol -) 650 mg PO Q6H PRN PRN Reason: FEVER Last Admin: 01/30/19 19:00 Dose: 650 mg Apixaban (Eliquis -) 5 mg PO BID [facility] Last Admin: 02/04/19 10:28 Dose: Not Given Atorvastatin Calcium (Lipitor -) 40 mg PO HS [facility] Last Admin: 02/03/19 21:18 Dose: 40 mg Calcium Acetate (Phoslo -) 1,334 mg PO TIDCM COUNT [facility]CLUDES [facility] Last Admin: 02/04/19 12:00 Dose: Not Given Fentanyl (Sublimaze Injection -) 25 mcg IVPUSH [id number] PRN PRN Reason: PAIN-PACU ORDER X 4 DOSES ONLY Last Admin: 01/30/19 12:52 Dose: 25 mcg Ferrous Sulfate (Feosol -) 325 mg PO BIDWM [facility]CLUD[facility] Last Admin: 02/04/19 10:22 Dose: Not Given Guaifenesin (Robitussin -) 10 ml PO Q6H PRN PRN Reason: COUGH Hydralazine HCl (Apresoline -) 50 mg PO TID [facility] Last Admin: 02/04/19 14:41 Dose: 50 mg Losartan Potassium (Cozaar -) 100 mg PO DAILY [facility] Last Admin: 02/04/19 11:42 Dose: 100 mg Metoprolol Tartrate (Lopressor -) 75 mg PO TID [facility] Last Admin: 02/04/19 14:40 Dose: 75 mg Nifedipine (Procardia Xl -) 90 mg PO DAILY [facility] Last Admin: 02/04/19 11:42 Dose: 90 mg Ondansetron HCl (Zofran Injection) 4 mg IVPUSH Q6H PRN PRN Reason: NAUSEA AND/OR VOMITING Pantoprazole Sodium (Protonix -) 40 mg PO DAILY [facility] Last Admin: 02/04/19 10:28 Dose: Not Given Phenytoin Sodium (Dilantin -) 200 mg PO BID [facility] Last Admin: 02/04/19 10:27 Dose: Not Given Spironolactone (Aldactone -) 50 mg PO DAILY [facility] Last Admin: 02/04/19 11:41 Dose: 50 mg - Objective Vital Signs: Vital Signs Temperature 98.8 F 02/04/19 14:41 Pulse Rate 87 02/04/19 12:55 Respiratory Rate 88 H 02/04/19 12:55 Blood Pressure 159/87 02/04/19 12:55 O2 Sat by Pulse Oximetry (%) 96 02/04/19 09:00 Constitutional: Yes: No Distress, Calm Cardiovascular: Yes: Regular Rate and Rhythm Respiratory: Yes: Regular, CTA Bilaterally Gastrointestinal: Yes: Normal Bowel Sounds, Soft Musculoskeletal: Yes: WNL Extremities: Yes: WNL Neurological: Yes: Alert, Oriented Labs: CBC, BMP 02/04/19 09:50 02/04/19 09:12 INR, PTT INR 1.04 (0.83-1.09) 01/30/19 06:10 Assessment/Plan patient looks sick and i am worried that she might take turn for the worse,labd have been ordered ,uncollected Problem List - Problems (1) Anemia Code(s): D64.9 - ANEMIA, UNSPECIFIED Qualifiers: Anemia type: unspecified type Qualified Code(s): D64.9 - Anemia, unspecified (2) Hyperkalemia Code(s): E87.5 - HYPERKALEMIA (3) Renal failure Code(s): N19 - UNSPECIFIED KIDNEY FAILURE Qualifiers: Renal failure chronicity: unspecified chronicity Qualified Code(s): N19 - Unspecified kidney failure sepsis fever plan continue current mgmt stable monitor dialysis rest as per the team
[2019-02-04] MEDS: ACETAMINOPHEN 325 MG TABLET (FP) PO PRN (17:13)
--- NOTE | 2019-02-04 17:38 | PN ---
Progress Note, Physician History of Present Illness: doing well - Current Medication List Current Medications: Active Medications Acetaminophen (Tylenol -) 650 mg PO Q6H PRN PRN Reason: FEVER Last Admin: 02/04/19 17:13 Dose: 650 mg Apixaban (Eliquis -) 5 mg PO BID [facility] Last Admin: 02/04/19 10:28 Dose: Not Given Atorvastatin Calcium (Lipitor -) 40 mg PO HS [facility] Last Admin: 02/03/19 21:18 Dose: 40 mg Calcium Acetate (Phoslo -) 1,334 mg PO TIDCM [facility] Last Admin: 02/04/19 17:12 Dose: 1,334 mg Fentanyl (Sublimaze Injection -) 25 mcg IVPUSH [id number] PRN PRN Reason: PAIN-PACU ORDER X 4 DOSES ONLY Last Admin: 01/30/19 12:52 Dose: 25 mcg Ferrous Sulfate (Feosol -) 325 mg PO BIDWM [facility] Last Admin: 02/04/19 17:13 Dose: 325 mg Guaifenesin (Robitussin -) 10 ml PO Q6H PRN PRN Reason: COUGH Hydralazine HCl (Apresoline -) 50 mg PO TID [facility] Last Admin: 02/04/19 14:41 Dose: 50 mg Losartan Potassium (Cozaar -) 100 mg PO DAILY [facility] Last Admin: 02/04/19 11:42 Dose: 100 mg Metoprolol Tartrate (Lopressor -) 75 mg PO TID [facility] Last Admin: 02/04/19 14:40 Dose: 75 mg Nifedipine (Procardia Xl -) 90 mg PO DAILY [facility] Last Admin: 02/04/19 11:42 Dose: 90 mg Ondansetron HCl (Zofran Injection) 4 mg IVPUSH Q6H PRN PRN Reason: NAUSEA AND/OR VOMITING Pantoprazole Sodium (Protonix -) 40 mg PO DAILY [facility] Last Admin: 02/04/19 10:28 Dose: Not Given Phenytoin Sodium (Dilantin -) 200 mg PO BID [facility] Last Admin: 02/04/19 10:27 Dose: Not Given Spironolactone (Aldactone -) 50 mg PO DAILY [facility] Last Admin: 02/04/19 11:41 Dose: 50 mg - Objective Vital Signs: Vital Signs Temperature 98.8 F 02/04/19 14:41 Pulse Rate 87 02/04/19 12:55 Respiratory Rate 88 H 02/04/19 12:55 Blood Pressure 159/87 02/04/19 12:55 O2 Sat by Pulse Oximetry (%) 96 02/04/19 09:00 Constitutional: Yes: No Distress HENT: Yes: Atraumatic Neck: Yes: Supple Cardiovascular: Yes: Regular Rate and Rhythm Respiratory: Yes: CTA Bilaterally Gastrointestinal: Yes: Normal Bowel Sounds Extremities: Yes: WNL Edema: No Peripheral Pulses WNL: Yes Neurological: Yes: Alert, Oriented Labs: CBC, BMP 02/04/19 09:50 02/04/19 09:12 INR, PTT INR 1.04 (0.83-1.09) 01/30/19 06:10 Problem List - Problems (1) Hyperkalemia Assessment/Plan: K wnl Code(s): E87.5 - HYPERKALEMIA (2) Renal failure Assessment/Plan: ON HD s/p permacath Code(s): N19 - UNSPECIFIED KIDNEY FAILURE Qualifiers: Renal failure chronicity: unspecified chronicity Qualified Code(s): N19 - Unspecified kidney failure (3) Seizure disorder Code(s): G40.909 - EPILEPSY, UNSP, NOT INTRACTABLE, WITHOUT STATUS EPILEPTICUS (4) Anemia Assessment/Plan: stable s/p blood transfusion Code(s): D64.9 - ANEMIA, UNSPECIFIED Qualifiers: Anemia type: unspecified type Qualified Code(s): D64.9 - Anemia, unspecified (5) Acute on chronic diastolic CHF (congestive heart failure) Code(s): I50.33 - ACUTE ON CHRONIC DIASTOLIC (CONGESTIVE) HEART FAILURE (6) Hypercholesterolemia Code(s): E78.00 - PURE HYPERCHOLESTEROLEMIA, UNSPECIFIED (7) Seizures Code(s): R56.9 - UNSPECIFIED CONVULSIONS (8) Sepsis Assessment/Plan: completed abx Code(s): A41.9 - SEPSIS, UNSPECIFIED ORGANISM
--- NOTE | 2019-02-04 17:42 | DS ---
Physical Examination Vital Signs: Vital Signs Temperature 98.8 F 02/04/19 14:41 Pulse Rate 87 02/04/19 12:55 Respiratory Rate 88 H 02/04/19 12:55 Blood Pressure 159/87 02/04/19 12:55 O2 Sat by Pulse Oximetry (%) 96 02/04/19 09:00 Labs: CBC, BMP 02/04/19 09:50 02/04/19 09:12 Discharge Summary Reason For Visit: ANEMIA, RENAL FAILURE HYPERKALEMIA Current Active Problems Accident due to mechanical fall without injury (Acute) Acute on chronic diastolic CHF (congestive heart failure) (Acute) Anemia (Acute) Hypercholesterolemia (Acute) Hyperkalemia (Acute) Hypokalemia (Acute) Hypomagnesemia (Acute) Osteoarthritis, knee (Acute) PAF (paroxysmal atrial fibrillation) (Acute) Renal failure (Acute) Seizures (Acute) Sepsis (Acute) - Instructions - Home Medications Comprehensive Discharge Medication List: Ambulatory Orders Gabapentin 300 mg PO TID 12/17/18 Phenytoin Sodium Extended 200 mg PO BID 12/17/18 Atorvastatin Ca [Lipitor] 40 mg PO HS tablet 12/24/18 Ferrous Sulfate [Feosol] 325 mg PO BIDWM ud 12/24/18 Sennosides [Senna -] 2 tab PO HS tablet 12/24/18 Calcium Acetate [Phoslo -] 1,334 mg PO TIDCM capsule 01/31/19 Losartan Potassium [Cozaar -] 100 mg PO DAILY tablet 01/31/19 Metoprolol Tartrate [Lopressor -] 75 mg PO TID tablet 01/31/19 Nifedipine ER [Procardia XL -] 90 mg PO DAILY tab.er.24 01/31/19 Pantoprazole Sodium [Protonix -] 40 mg PO DAILY tablet.ec 01/31/19 Spironolactone [Aldactone -] 50 mg PO DAILY tablet 01/31/19 hydrALAZINE HCL [Apresoline -] 50 mg PO TID tablet 01/31/19 Apixaban [Eliquis -] 5 mg PO BID tablet 02/03/19
[2019-02-04] MEDS: ATORVASTATIN CA 40 MG TABLET (FP) PO SCH (21:31)
[2019-02-05] MEDS: METOPROLOL TARTRATE 25 MG TABLET (FP) PO SCH ×3 (06:12→21:30)
[2019-02-05] MEDS: hydrALAZINE HCL 50 MG TABLET (FP) PO SCH ×3 (06:12→21:30)
[2019-02-05] MEDS: NIFEdipine E.R. 90 MG TABLET (FP) PO SCH (09:00)
[2019-02-05] MEDS ORDERED: PT OWN MED DRAWER 7, Y5N ONE (10:37)
[2019-02-05] MEDS: CALCIUM ACETATE 667 MG CAPSULE (FP) PO SCH ×3 (10:52→18:34)
[2019-02-05] MEDS: SPIRONOLACTONE 25 MG TABLET (FP) PO SCH (10:52)
[2019-02-05] MEDS: PHENYTOIN NA EXTENDED 100 MG CAPSULE (FP) PO SCH ×2 (10:52→21:30)
[2019-02-05] MEDS: APIXABAN 5 MG TABLET PO SCH ×2 (10:52→21:30)
[2019-02-05] MEDS: PANTOPRAZOLE 40 MG TABLET (FP) PO SCH (10:53)
[2019-02-05] MEDS: FERROUS SO4 325 MG TABLET (FP) PO SCH ×2 (10:53→18:34)
[2019-02-05] MEDS: LOSARTAN POTASSIUM 50 MG TABLET (FP) PO SCH (10:53)
--- NOTE | 2019-02-05 12:13 | PN ---
Progress Note, Physician History of Present Illness: Pt seen and examined at bedside. She is awake and alert. She denies shortness of breath. - Current Medication List Current Medications: Active Medications Acetaminophen (Tylenol -) 650 mg PO Q6H PRN PRN Reason: FEVER Last Admin: 02/04/19 17:13 Dose: 650 mg Apixaban (Eliquis -) 5 mg PO BID [facility] Last Admin: 02/05/19 10:52 Dose: 5 mg Atorvastatin Calcium (Lipitor -) 40 mg PO HS [facility] Last Admin: 02/04/19 21:31 Dose: 40 mg Calcium Acetate (Phoslo -) 1,334 mg PO TIDCM [facility] Last Admin: 02/05/19 10:52 Dose: 1,334 mg Fentanyl (Sublimaze Injection -) 25 mcg IVPUSH [id number] PRN PRN Reason: PAIN-PACU ORDER X 4 DOSES ONLY Last Admin: 01/30/19 12:52 Dose: 25 mcg Ferrous Sulfate (Feosol -) 325 mg PO BIDWM [facility] Last Admin: 02/05/19 10:53 Dose: 325 mg Guaifenesin (Robitussin -) 10 ml PO Q6H PRN PRN Reason: COUGH Hydralazine HCl (Apresoline -) 50 mg PO TID [facility] Last Admin: 02/05/19 06:12 Dose: 50 mg Losartan Potassium (Cozaar -) 100 mg PO DAILY [facility] Last Admin: 02/05/19 10:53 Dose: 100 mg Metoprolol Tartrate (Lopressor -) 75 mg PO TID [facility] Last Admin: 02/05/19 06:12 Dose: 75 mg Nifedipine (Procardia Xl -) 90 mg PO DAILY [facility] Last Admin: 02/04/19 11:42 Dose: 90 mg Ondansetron HCl (Zofran Injection) 4 mg IVPUSH Q6H PRN PRN Reason: NAUSEA AND/OR VOMITING Pantoprazole Sodium (Protonix -) 40 mg PO DAILY [facility] Last Admin: 02/05/19 10:53 Dose: 40 mg Phenytoin Sodium (Dilantin -) 200 mg PO BID [facility] Last Admin: 02/05/19 10:52 Dose: 200 mg Spironolactone (Aldactone -) 50 mg PO DAILY [facility] Last Admin: 02/05/19 10:52 Dose: 50 mg - Objective Vital Signs: Vital Signs Temperature 98.4 F 02/04/19 22:30 Pulse Rate 80 02/04/19 22:30 Respiratory Rate 20 02/04/19 22:30 Blood Pressure 130/70 02/04/19 22:30 O2 Sat by Pulse Oximetry (%) 96 02/04/19 22:00 Constitutional: Yes: Calm Eyes: Yes: Conjunctiva Clear HENT: Yes: Atraumatic Neck: Yes: Supple Cardiovascular: Yes: S1, S2 Respiratory: Yes: CTA Bilaterally Gastrointestinal: Yes: Soft Genitourinary: Yes: WNL Musculoskeletal: Yes: WNL Edema: Yes Edema: LLE: Trace, RLE: Trace Neurological: Yes: Oriented Psychiatric: Yes: Oriented Labs: CBC, BMP 02/04/19 09:50 02/04/19 09:12 INR, PTT INR 1.04 (0.83-1.09) 01/30/19 06:10 Problem List - Problems (1) Anemia Code(s): D64.9 - ANEMIA, UNSPECIFIED Qualifiers: Anemia type: unspecified type Qualified Code(s): D64.9 - Anemia, unspecified (2) Hyperkalemia Code(s): E87.5 - HYPERKALEMIA (3) Renal failure Code(s): N19 - UNSPECIFIED KIDNEY FAILURE Qualifiers: Renal failure chronicity: unspecified chronicity Qualified Code(s): N19 - Unspecified kidney failure Assessment/Plan Current Medications Generic Name Dose Route Start Last Admin Trade Name Freq PRN Reason Stop Dose Admin Acetaminophen 650 mg 01/30/19 12:42 02/04/19 17:13 Tylenol - PO 650 mg Q6H PRN Administration FEVER Apixaban 5 mg 01/31/19 22:00 02/05/19 10:52 Eliquis - PO 5 mg BID [facility] Administration Atorvastatin Calcium 40 mg 01/30/19 22:00 02/04/19 21:31 Lipitor - PO 40 mg HS [facility] Administration Calcium Acetate 1,334 mg 01/30/19 17:30 02/05/19 10:52 Phoslo - PO 1,334 mg TIDCM [facility] Administration Fentanyl 25 mcg 01/30/19 12:42 01/30/19 12:52 Sublimaze Injection - IVPUSH 25 mcg [id number] PRN Administration PAIN-PACU ORDER X 4 DOSES ONLY Ferrous Sulfate 325 mg 01/30/19 17:30 02/05/19 10:53 Feosol - PO 325 mg BIDWM [facility]AH Administration Guaifenesin 10 ml 01/30/19 12:42 Robitussin - PO Q6H PRN COUGH Hydralazine HCl 50 mg 01/30/19 14:00 02/05/19 06:12 Apresoline - PO 50 mg TID [facility] Administration Losartan Potassium 100 mg 01/31/19 10:00 02/05/19 10:53 Cozaar - PO 100 mg DAILY [facility] Administration Metoprolol Tartrate 75 mg 01/30/19 14:00 02/05/19 06:12 Lopressor - PO 75 mg TID [facility] Administration Nifedipine 90 mg 01/31/19 10:00 02/04/19 11:42 Procardia Xl - PO 90 mg DAILY [facility] Administration Ondansetron HCl 4 mg 01/30/19 12:42 Zofran Injection IVPUSH Q6H PRN NAUSEA AND/OR VOMITING Pantoprazole Sodium 40 mg 01/31/19 10:00 02/05/19 10:53 Protonix - PO 40 mg DAILY [facility] Administration Phenytoin Sodium 200 mg 01/30/19 22:00 02/05/19 10:52 Dilantin - PO 200 mg BID [facility] Administration Spironolactone 50 mg 01/31/19 10:00 02/05/19 10:52 Aldactone - PO 50 mg DAILY [facility] Administration Impression 1. SOHAIL 2. lower ext edema 3. anemia 4. HTN 5. arthritis 6. nephrotic range proteinura 7. obesity 8. positive hep c virus on last admission 9. CKD 10. ESRD 11. hypokalemia 12. a-fib 13. hep c Plan - Pt tolerated HD yesterday - cont epogen for anemia - monitor bp meds - will need GI follow up for Hep C - pending placement - renal diet
--- NOTE | 2019-02-05 12:40 | PN ---
Progress Note, Physician History of Present Illness: stable no new issues - Current Medication List Current Medications: Active Medications Acetaminophen (Tylenol -) 650 mg PO Q6H PRN PRN Reason: FEVER Last Admin: 02/04/19 17:13 Dose: 650 mg Apixaban (Eliquis -) 5 mg PO BID [facility] Last Admin: 02/05/19 10:52 Dose: 5 mg Atorvastatin Calcium (Lipitor -) 40 mg PO HS [facility] Last Admin: 02/04/19 21:31 Dose: 40 mg Calcium Acetate (Phoslo -) 1,334 mg PO TIDCM [facility] Last Admin: 02/05/19 12:21 Dose: 1,334 mg Fentanyl (Sublimaze Injection -) 25 mcg IVPUSH [id number] PRN PRN Reason: PAIN-PACU ORDER X 4 DOSES ONLY Last Admin: 01/30/19 12:52 Dose: 25 mcg Ferrous Sulfate (Feosol -) 325 mg PO BIDWM [facility] Last Admin: 02/05/19 10:53 Dose: 325 mg Guaifenesin (Robitussin -) 10 ml PO Q6H PRN PRN Reason: COUGH Hydralazine HCl (Apresoline -) 50 mg PO TID [facility] Last Admin: 02/05/19 06:12 Dose: 50 mg Losartan Potassium (Cozaar -) 100 mg PO DAILY [facility] Last Admin: 02/05/19 10:53 Dose: 100 mg Metoprolol Tartrate (Lopressor -) 75 mg PO TID [facility] Last Admin: 02/05/19 06:12 Dose: 75 mg Nifedipine (Procardia Xl -) 90 mg PO DAILY [facility] Last Admin: 02/05/19 09:00 Dose: 90 mg Ondansetron HCl (Zofran Injection) 4 mg IVPUSH Q6H PRN PRN Reason: NAUSEA AND/OR VOMITING Pantoprazole Sodium (Protonix -) 40 mg PO DAILY [facility] Last Admin: 02/05/19 10:53 Dose: 40 mg Phenytoin Sodium (Dilantin -) 200 mg PO BID [facility] Last Admin: 02/05/19 10:52 Dose: 200 mg Spironolactone (Aldactone -) 50 mg PO DAILY [facility] Last Admin: 02/05/19 10:52 Dose: 50 mg - Objective Vital Signs: Vital Signs Temperature 98.4 F 02/04/19 22:30 Pulse Rate 80 02/04/19 22:30 Respiratory Rate 20 02/04/19 22:30 Blood Pressure 130/70 02/04/19 22:30 O2 Sat by Pulse Oximetry (%) 96 02/04/19 22:00 Constitutional: Yes: No Distress, Calm Cardiovascular: Yes: Regular Rate and Rhythm Respiratory: Yes: Regular, CTA Bilaterally Gastrointestinal: Yes: Normal Bowel Sounds, Soft Musculoskeletal: Yes: WNL Extremities: Yes: WNL Neurological: Yes: Alert, Oriented Psychiatric: Yes: Alert, Oriented Labs: CBC, BMP 02/04/19 09:50 02/04/19 09:12 INR, PTT INR 1.04 (0.83-1.09) 01/30/19 06:10 Assessment/Plan patient looks sick and i am worried that she might take turn for the worse,labd have been ordered ,uncollected Problem List - Problems (1) Anemia Code(s): D64.9 - ANEMIA, UNSPECIFIED Qualifiers: Anemia type: unspecified type Qualified Code(s): D64.9 - Anemia, unspecified (2) Hyperkalemia Code(s): E87.5 - HYPERKALEMIA (3) Renal failure Code(s): N19 - UNSPECIFIED KIDNEY FAILURE Qualifiers: Renal failure chronicity: unspecified chronicity Qualified Code(s): N19 - Unspecified kidney failure sepsis fever plan continue current mgmt stable monitor dialysis rest as per the team
--- NOTE | 2019-02-05 18:36 | PN ---
Progress Note, Physician History of Present Illness: doing well - Current Medication List Current Medications: Active Medications Acetaminophen (Tylenol -) 650 mg PO Q6H PRN PRN Reason: FEVER Last Admin: 02/04/19 17:13 Dose: 650 mg Apixaban (Eliquis -) 5 mg PO BID [facility] Last Admin: 02/05/19 10:52 Dose: 5 mg Atorvastatin Calcium (Lipitor -) 40 mg PO HS [facility] Last Admin: 02/04/19 21:31 Dose: 40 mg Calcium Acetate (Phoslo -) 1,334 mg PO TIDCM [facility] Last Admin: 02/05/19 18:34 Dose: Not Given Fentanyl (Sublimaze Injection -) 25 mcg IVPUSH [id number] PRN PRN Reason: PAIN-PACU ORDER X 4 DOSES ONLY Last Admin: 01/30/19 12:52 Dose: 25 mcg Ferrous Sulfate (Feosol -) 325 mg PO BIDWM [facility] Last Admin: 02/05/19 18:34 Dose: Not Given Guaifenesin (Robitussin -) 10 ml PO Q6H PRN PRN Reason: COUGH Hydralazine HCl (Apresoline -) 50 mg PO TID [facility] Last Admin: 02/05/19 14:26 Dose: 50 mg Losartan Potassium (Cozaar -) 100 mg PO DAILY [facility] Last Admin: 02/05/19 10:53 Dose: 100 mg Metoprolol Tartrate (Lopressor -) 75 mg PO TID [facility] Last Admin: 02/05/19 14:30 Dose: 75 mg Nifedipine (Procardia Xl -) 90 mg PO DAILY [facility] Last Admin: 02/05/19 09:00 Dose: 90 mg Ondansetron HCl (Zofran Injection) 4 mg IVPUSH Q6H PRN PRN Reason: NAUSEA AND/OR VOMITING Pantoprazole Sodium (Protonix -) 40 mg PO DAILY [facility] Last Admin: 02/05/19 10:53 Dose: 40 mg Phenytoin Sodium (Dilantin -) 200 mg PO BID [facility] Last Admin: 02/05/19 10:52 Dose: 200 mg Spironolactone (Aldactone -) 50 mg PO DAILY [facility] Last Admin: 02/05/19 10:52 Dose: 50 mg - Objective Vital Signs: Vital Signs Temperature 98.3 F 02/05/19 10:00 Pulse Rate 84 02/05/19 10:00 Respiratory Rate 20 02/05/19 10:00 Blood Pressure 142/107 H 02/05/19 10:00 O2 Sat by Pulse Oximetry (%) 96 02/04/19 22:00 Constitutional: Yes: No Distress HENT: Yes: Atraumatic Neck: Yes: Supple Cardiovascular: Yes: Regular Rate and Rhythm Respiratory: Yes: CTA Bilaterally Gastrointestinal: Yes: Normal Bowel Sounds Extremities: Yes: WNL Edema: No Peripheral Pulses WNL: Yes Neurological: Yes: Alert, Oriented Labs: CBC, BMP 02/04/19 09:50 02/04/19 09:12 INR, PTT INR 1.04 (0.83-1.09) 01/30/19 06:10 Problem List - Problems (1) Hyperkalemia Assessment/Plan: K wnl Code(s): E87.5 - HYPERKALEMIA (2) Renal failure Assessment/Plan: ON HD s/p permacath Code(s): N19 - UNSPECIFIED KIDNEY FAILURE Qualifiers: Renal failure chronicity: unspecified chronicity Qualified Code(s): N19 - Unspecified kidney failure (3) Seizure disorder Code(s): G40.909 - EPILEPSY, UNSP, NOT INTRACTABLE, WITHOUT STATUS EPILEPTICUS (4) Anemia Assessment/Plan: stable s/p blood transfusion Code(s): D64.9 - ANEMIA, UNSPECIFIED Qualifiers: Anemia type: unspecified type Qualified Code(s): D64.9 - Anemia, unspecified (5) Acute on chronic diastolic CHF (congestive heart failure) Code(s): I50.33 - ACUTE ON CHRONIC DIASTOLIC (CONGESTIVE) HEART FAILURE (6) Hypercholesterolemia Code(s): E78.00 - PURE HYPERCHOLESTEROLEMIA, UNSPECIFIED (7) Seizures Code(s): R56.9 - UNSPECIFIED CONVULSIONS (8) Sepsis Code(s): A41.9 - SEPSIS, UNSPECIFIED ORGANISM
[2019-02-05] MEDS: ATORVASTATIN CA 40 MG TABLET (FP) PO SCH (21:30)
[2019-02-06] MEDS: METOPROLOL TARTRATE 25 MG TABLET (FP) PO SCH ×3 (05:53→21:30)
[2019-02-06] MEDS: hydrALAZINE HCL 50 MG TABLET (FP) PO SCH ×4 (05:53→21:30)
[2019-02-06] MEDS: FERROUS SO4 325 MG TABLET (FP) PO SCH ×2 (08:19→17:54)
[2019-02-06] MEDS: CALCIUM ACETATE 667 MG CAPSULE (FP) PO SCH ×3 (08:19→17:54)
[2019-02-06] MEDS ORDERED: EPOETIN ALFA 10,000 UNIT/1 ML VIAL IVPUSH ONE (09:00)
[2019-02-06] MEDS: PANTOPRAZOLE 40 MG TABLET (FP) PO SCH (09:58)
[2019-02-06] MEDS: SPIRONOLACTONE 25 MG TABLET (FP) PO SCH (09:58)
[2019-02-06] MEDS: LOSARTAN POTASSIUM 50 MG TABLET (FP) PO SCH (09:58)
[2019-02-06] MEDS: PHENYTOIN NA EXTENDED 100 MG CAPSULE (FP) PO SCH ×2 (09:58→21:30)
[2019-02-06] MEDS: NIFEdipine E.R. 90 MG TABLET (FP) PO SCH (09:58)
[2019-02-06] MEDS: APIXABAN 5 MG TABLET PO SCH ×2 (09:58→21:29)
--- NOTE | 2019-02-06 15:53 | PN ---
Progress Note, Physician - Current Medication List Current Medications: Active Medications Acetaminophen (Tylenol -) 650 mg PO Q6H PRN PRN Reason: FEVER Last Admin: 02/04/19 17:13 Dose: 650 mg Apixaban (Eliquis -) 5 mg PO BID [facility] Last Admin: 02/06/19 09:58 Dose: Not Given Atorvastatin Calcium (Lipitor -) 40 mg PO HS [facility] Last Admin: 02/05/19 21:30 Dose: 40 mg Calcium Acetate (Phoslo -) 1,334 mg PO TIDCM [facility] Last Admin: 02/06/19 12:45 Dose: Not Given Fentanyl (Sublimaze Injection -) 25 mcg IVPUSH [id number] PRN PRN Reason: PAIN-PACU ORDER X 4 DOSES ONLY Last Admin: 01/30/19 12:52 Dose: 25 mcg Ferrous Sulfate (Feosol -) 325 mg PO BIDWM [facility] Last Admin: 02/06/19 08:19 Dose: Not Given Guaifenesin (Robitussin -) 10 ml PO Q6H PRN PRN Reason: COUGH Hydralazine HCl (Apresoline -) 50 mg PO TID [facility] Last Admin: 02/06/19 15:50 Dose: Not Given Losartan Potassium (Cozaar -) 100 mg PO DAILY [facility] Last Admin: 02/06/19 09:58 Dose: Not Given Metoprolol Tartrate (Lopressor -) 75 mg PO TID [facility] Last Admin: 02/06/19 15:18 Dose: 75 mg Nifedipine (Procardia Xl -) 90 mg PO DAILY [facility] Last Admin: 02/06/19 09:58 Dose: Not Given Ondansetron HCl (Zofran Injection) 4 mg IVPUSH Q6H PRN PRN Reason: NAUSEA AND/OR VOMITING Pantoprazole Sodium (Protonix -) 40 mg PO DAILY [facility] Last Admin: 02/06/19 09:58 Dose: Not Given Phenytoin Sodium (Dilantin -) 200 mg PO BID [facility] Last Admin: 02/06/19 09:58 Dose: Not Given Spironolactone (Aldactone -) 50 mg PO DAILY [facility] Last Admin: 02/06/19 09:58 Dose: Not Given - Objective Vital Signs: Vital Signs Temperature 98.2 F 02/06/19 11:15 Pulse Rate 82 02/06/19 11:15 Respiratory Rate 18 02/06/19 11:15 Blood Pressure 149/96 02/06/19 11:15 O2 Sat by Pulse Oximetry (%) 96 02/06/19 09:00 Labs: CBC, BMP 02/04/19 09:50 02/04/19 09:12 INR, PTT INR 1.04 (0.83-1.09) 01/30/19 06:10
--- NOTE | 2019-02-06 16:11 | PN ---
Progress Note, Physician History of Present Illness: Pt seen and examined at bedside. She is awake and alert. She denies shortness of breath. - Current Medication List Current Medications: Active Medications Acetaminophen (Tylenol -) 650 mg PO Q6H PRN PRN Reason: FEVER Last Admin: 02/04/19 17:13 Dose: 650 mg Apixaban (Eliquis -) 5 mg PO BID [facility] Last Admin: 02/06/19 09:58 Dose: Not Given Atorvastatin Calcium (Lipitor -) 40 mg PO HS [facility] Last Admin: 02/05/19 21:30 Dose: 40 mg Calcium Acetate (Phoslo -) 1,334 mg PO TIDCM [facility] Last Admin: 02/06/19 12:45 Dose: Not Given Fentanyl (Sublimaze Injection -) 25 mcg IVPUSH [id number] PRN PRN Reason: PAIN-PACU ORDER X 4 DOSES ONLY Last Admin: 01/30/19 12:52 Dose: 25 mcg Ferrous Sulfate (Feosol -) 325 mg PO BIDWM [facility] Last Admin: 02/06/19 08:19 Dose: Not Given Guaifenesin (Robitussin -) 10 ml PO Q6H PRN PRN Reason: COUGH Hydralazine HCl (Apresoline -) 50 mg PO TID [facility] Last Admin: 02/06/19 15:50 Dose: Not Given Losartan Potassium (Cozaar -) 100 mg PO DAILY [facility] Last Admin: 02/06/19 09:58 Dose: Not Given Metoprolol Tartrate (Lopressor -) 75 mg PO TID [facility] Last Admin: 02/06/19 15:18 Dose: 75 mg Nifedipine (Procardia Xl -) 90 mg PO DAILY [facility] Last Admin: 02/06/19 09:58 Dose: Not Given Ondansetron HCl (Zofran Injection) 4 mg IVPUSH Q6H PRN PRN Reason: NAUSEA AND/OR VOMITING Pantoprazole Sodium (Protonix -) 40 mg PO DAILY [facility] Last Admin: 02/06/19 09:58 Dose: Not Given Phenytoin Sodium (Dilantin -) 200 mg PO BID [facility] Last Admin: 02/06/19 09:58 Dose: Not Given Spironolactone (Aldactone -) 50 mg PO DAILY [facility] Last Admin: 02/06/19 09:58 Dose: Not Given - Objective Vital Signs: Vital Signs Temperature 98.1 F 06/20/19 15:54 Pulse Rate 99 H 02/06/19 15:54 Respiratory Rate 20 02/06/19 15:54 Blood Pressure 129/68 02/06/19 15:54 O2 Sat by Pulse Oximetry (%) 96 02/06/19 09:00 Constitutional: Yes: Calm Eyes: Yes: Conjunctiva Clear HENT: Yes: Atraumatic Neck: Yes: Supple Cardiovascular: Yes: S1, S2 Respiratory: Yes: CTA Bilaterally Gastrointestinal: Yes: Soft Genitourinary: Yes: WNL Musculoskeletal: Yes: WNL Edema: Yes Edema: LLE: Trace, RLE: Trace Neurological: Yes: Oriented Psychiatric: Yes: Oriented Labs: CBC, BMP 02/04/19 09:50 02/04/19 09:12 INR, PTT INR 1.04 (0.83-1.09) 01/30/19 06:10 Problem List - Problems (1) Anemia Code(s): D64.9 - ANEMIA, UNSPECIFIED Qualifiers: Anemia type: unspecified type Qualified Code(s): D64.9 - Anemia, unspecified (2) Hyperkalemia Code(s): E87.5 - HYPERKALEMIA (3) Renal failure Code(s): N19 - UNSPECIFIED KIDNEY FAILURE Qualifiers: Renal failure chronicity: unspecified chronicity Qualified Code(s): N19 - Unspecified kidney failure Assessment/Plan Current Medications Generic Name Dose Route Start Last Admin Trade Name Freq PRN Reason Stop Dose Admin Acetaminophen 650 mg 01/30/19 12:42 02/04/19 17:13 Tylenol - PO 650 mg Q6H PRN Administration FEVER Apixaban 5 mg 01/31/19 22:00 02/06/19 09:58 Eliquis - PO Not Given BID [facility] Atorvastatin Calcium 40 mg 01/30/19 22:00 02/05/19 21:30 Lipitor - PO 40 mg HS [facility] Administration Calcium Acetate 1,334 mg 01/30/19 17:30 02/06/19 12:45 Phoslo - PO Not Given TIDCM [facility] Fentanyl 25 mcg 01/30/19 12:42 01/30/19 12:52 Sublimaze Injection - IVPUSH 25 mcg [id number] PRN Administration PAIN-PACU ORDER X 4 DOSES ONLY Ferrous Sulfate 325 mg 01/30/19 17:30 02/06/19 08:19 Feosol - PO Not Given BIDWM [facility] Guaifenesin 10 ml 01/30/19 12:42 Robitussin - PO Q6H PRN COUGH Hydralazine HCl 50 mg 01/30/19 14:00 02/06/19 15:50 Apresoline - PO Not Given TID [facility] Losartan Potassium 100 mg 01/31/19 10:00 02/06/19 09:58 Cozaar - PO Not Given DAILY [facility] Metoprolol Tartrate 75 mg 01/30/19 14:00 02/06/19 15:18 Lopressor - PO 75 mg TID [facility] Administration Nifedipine 90 mg 01/31/19 10:00 02/06/19 09:58 Procardia Xl - PO Not Given DAILY [facility] Ondansetron HCl 4 mg 01/30/19 12:42 Zofran Injection IVPUSH Q6H PRN NAUSEA AND/OR VOMITING Pantoprazole Sodium 40 mg 01/31/19 10:00 02/06/19 09:58 Protonix - PO Not Given DAILY [facility] Phenytoin Sodium 200 mg 01/30/19 22:00 02/06/19 09:58 Dilantin - PO Not Given BID [facility] Spironolactone 50 mg 01/31/19 10:00 02/06/19 09:58 Aldactone - PO Not Given DAILY [facility] Impression 1. SOHAIL 2. lower ext edema 3. anemia 4. HTN 5. arthritis 6. nephrotic range proteinura 7. obesity 8. positive hep c virus on last admission 9. CKD 10. ESRD 11. hypokalemia 12. a-fib 13. hep c Plan - HD today - follow hep b surf ag - cont epogen for anemia - monitor bp meds - will need GI follow up for Hep C - pending placement - renal diet
[2019-02-06] MEDS ORDERED: SODIUM CHLORIDE 250 ML IV PRN ×2 (16:29→19:16)
--- NOTE | 2019-02-06 16:45 | PN ---
Progress Note, Physician - Current Medication List Current Medications: Active Medications Acetaminophen (Tylenol -) 650 mg PO Q6H PRN PRN Reason: FEVER Last Admin: 02/04/19 17:13 Dose: 650 mg Apixaban (Eliquis -) 5 mg PO BID [facility] Last Admin: 02/06/19 09:58 Dose: Not Given Atorvastatin Calcium (Lipitor -) 40 mg PO HS [facility] Last Admin: 02/05/19 21:30 Dose: 40 mg Calcium Acetate (Phoslo -) 1,334 mg PO TIDCM [facility] Last Admin: 02/06/19 12:45 Dose: Not Given Epoetin Ziyad (Epogen -) 10,000 unit IVPUSH ONCE ONE Stop: 02/07/19 16:30 Fentanyl (Sublimaze Injection -) 25 mcg IVPUSH [id number] PRN PRN Reason: PAIN-PACU ORDER X 4 DOSES ONLY Last Admin: 01/30/19 12:52 Dose: 25 mcg Ferrous Sulfate (Feosol -) 325 mg PO BIDWM [facility] Last Admin: 02/06/19 08:19 Dose: Not Given Guaifenesin (Robitussin -) 10 ml PO Q6H PRN PRN Reason: COUGH Hydralazine HCl (Apresoline -) 50 mg PO TID [facility] Last Admin: 02/06/19 15:50 Dose: Not Given Sodium Chloride (Normal Saline -) 250 mls @ 3,000 mls/hr IV PRN PRN PRN Reason: Hypotension during Dialysis Stop: 02/07/19 16:29 Losartan Potassium (Cozaar -) 100 mg PO DAILY [facility] Last Admin: 02/06/19 09:58 Dose: Not Given Metoprolol Tartrate (Lopressor -) 75 mg PO TID [facility] Last Admin: 02/06/19 15:18 Dose: 75 mg Nifedipine (Procardia Xl -) 90 mg PO DAILY [facility] Last Admin: 02/06/19 09:58 Dose: Not Given Ondansetron HCl (Zofran Injection) 4 mg IVPUSH Q6H PRN PRN Reason: NAUSEA AND/OR VOMITING Pantoprazole Sodium (Protonix -) 40 mg PO DAILY [facility] Last Admin: 02/06/19 09:58 Dose: Not Given Phenytoin Sodium (Dilantin -) 200 mg PO BID [facility] Last Admin: 02/06/19 09:58 Dose: Not Given Spironolactone (Aldactone -) 50 mg PO DAILY [facility] Last Admin: 02/06/19 09:58 Dose: Not Given - Objective Vital Signs: Vital Signs Temperature 98.1 F 02/06/19 15:54 Pulse Rate 99 H 02/06/19 15:54 Respiratory Rate 20 02/06/19 15:54 Blood Pressure 129/68 02/06/19 15:54 O2 Sat by Pulse Oximetry (%) 96 02/06/19 09:00 Labs: CBC, BMP 02/04/19 09:50 02/04/19 09:12 INR, PTT INR 1.04 (0.83-1.09) 01/30/19 06:10 Problem List - Problems (1) Acute on chronic diastolic CHF (congestive heart failure) Code(s): I50.33 - ACUTE ON CHRONIC DIASTOLIC (CONGESTIVE) HEART FAILURE (2) Anemia Code(s): D64.9 - ANEMIA, UNSPECIFIED Qualifiers: Anemia type: unspecified type Qualified Code(s): D64.9 - Anemia, unspecified (3) Hypercholesterolemia Code(s): E78.00 - PURE HYPERCHOLESTEROLEMIA, UNSPECIFIED (4) Cigarette nicotine dependence Code(s): F17.210 - NICOTINE DEPENDENCE, CIGARETTES, UNCOMPLICATED (5) [place] cardiac risk >20% in next 10 years Code(s): Z91.89 - OTH PERSONAL RISK FACTORS, NOT ELSEWHERE CLASSIFIED (6) Renal failure Code(s): N19 - UNSPECIFIED KIDNEY FAILURE Qualifiers: Renal failure chronicity: unspecified chronicity Qualified Code(s): N19 - Unspecified kidney failure (7) Hypertensive emergency Code(s): I16.1 - HYPERTENSIVE EMERGENCY (8) Lower extremity edema Code(s): R60.0 - LOCALIZED EDEMA (9) Seizures Code(s): R56.9 - UNSPECIFIED CONVULSIONS (10) Osteoarthritis, knee Code(s): M17.10 - UNILATERAL PRIMARY OSTEOARTHRITIS, UNSPECIFIED KNEE (11) PAF (paroxysmal atrial fibrillation) Code(s): I48.0 - PAROXYSMAL ATRIAL FIBRILLATION (12) Hypokalemia Code(s): E87.6 - HYPOKALEMIA (13) Hypomagnesemia Code(s): E83.42 - HYPOMAGNESEMIA
--- NOTE | 2019-02-06 18:16 | PN ---
Progress Note, Physician History of Present Illness: doing well - Current Medication List Current Medications: Active Medications Acetaminophen (Tylenol -) 650 mg PO Q6H PRN PRN Reason: FEVER Last Admin: 02/04/19 17:13 Dose: 650 mg Apixaban (Eliquis -) 5 mg PO BID [facility] Last Admin: 02/06/19 09:58 Dose: Not Given Atorvastatin Calcium (Lipitor -) 40 mg PO HS [facility] Last Admin: 02/05/19 21:30 Dose: 40 mg Calcium Acetate (Phoslo -) 1,334 mg PO TIDCM [facility] Last Admin: 02/06/19 17:54 Dose: 1,334 mg Epoetin Ziyad (Epogen -) 10,000 unit IVPUSH ONCE ONE Stop: 02/07/19 16:30 Fentanyl (Sublimaze Injection -) 25 mcg IVPUSH [id number] PRN PRN Reason: PAIN-PACU ORDER X 4 DOSES ONLY Last Admin: 01/30/19 12:52 Dose: 25 mcg Ferrous Sulfate (Feosol -) 325 mg PO BIDWM [facility] Last Admin: 02/06/19 17:54 Dose: 325 mg Guaifenesin (Robitussin -) 10 ml PO Q6H PRN PRN Reason: COUGH Hydralazine HCl (Apresoline -) 50 mg PO TID [facility] Last Admin: 02/06/19 15:50 Dose: Not Given Sodium Chloride (Normal Saline -) 250 mls @ 3,000 mls/hr IV PRN PRN PRN Reason: Hypotension during Dialysis Stop: 02/07/19 16:29 Losartan Potassium (Cozaar -) 100 mg PO DAILY [facility] Last Admin: 02/06/19 09:58 Dose: Not Given Metoprolol Tartrate (Lopressor -) 75 mg PO TID [facility] Last Admin: 02/06/19 15:18 Dose: 75 mg Nifedipine (Procardia Xl -) 90 mg PO DAILY [facility] Last Admin: 02/06/19 09:58 Dose: Not Given Ondansetron HCl (Zofran Injection) 4 mg IVPUSH Q6H PRN PRN Reason: NAUSEA AND/OR VOMITING Pantoprazole Sodium (Protonix -) 40 mg PO DAILY [facility] Last Admin: 02/06/19 09:58 Dose: Not Given Phenytoin Sodium (Dilantin -) 200 mg PO BID [facility] Last Admin: 02/06/19 09:58 Dose: Not Given Spironolactone (Aldactone -) 50 mg PO DAILY [facility] Last Admin: 02/06/19 09:58 Dose: Not Given - Objective Vital Signs: Vital Signs Temperature 98.1 F 02/06/19 15:54 Pulse Rate 99 H 02/06/19 15:54 Respiratory Rate 20 02/06/19 15:54 Blood Pressure 129/68 02/06/19 15:54 O2 Sat by Pulse Oximetry (%) 96 02/06/19 09:00 Constitutional: Yes: No Distress HENT: Yes: Atraumatic Neck: Yes: Supple Cardiovascular: Yes: Regular Rate and Rhythm Respiratory: Yes: CTA Bilaterally Gastrointestinal: Yes: Normal Bowel Sounds Extremities: Yes: WNL Edema: No Peripheral Pulses WNL: Yes Neurological: Yes: Alert, Oriented Labs: CBC, BMP 02/04/19 09:50 02/04/19 09:12 INR, PTT INR 1.04 (0.83-1.09) 01/30/19 06:10 Problem List - Problems (1) Hyperkalemia Assessment/Plan: K wnl Code(s): E87.5 - HYPERKALEMIA (2) Renal failure Assessment/Plan: ON HD s/p permacath Code(s): N19 - UNSPECIFIED KIDNEY FAILURE Qualifiers: Renal failure chronicity: unspecified chronicity Qualified Code(s): N19 - Unspecified kidney failure (3) Seizure disorder Code(s): G40.909 - EPILEPSY, UNSP, NOT INTRACTABLE, WITHOUT STATUS EPILEPTICUS (4) Anemia Assessment/Plan: stable s/p blood transfusion Code(s): D64.9 - ANEMIA, UNSPECIFIED Qualifiers: Anemia type: unspecified type Qualified Code(s): D64.9 - Anemia, unspecified (5) Acute on chronic diastolic CHF (congestive heart failure) Code(s): I50.33 - ACUTE ON CHRONIC DIASTOLIC (CONGESTIVE) HEART FAILURE (6) Hypercholesterolemia Code(s): E78.00 - PURE HYPERCHOLESTEROLEMIA, UNSPECIFIED (7) Seizures Code(s): R56.9 - UNSPECIFIED CONVULSIONS (8) Sepsis Assessment/Plan: completed abx Code(s): A41.9 - SEPSIS, UNSPECIFIED ORGANISM Assessment/Plan dc tomorrow to snf after HD d/w dr espinoza
[2019-02-06 20:08] VITALS: BMI 40.2
[2019-02-06] MEDS: ATORVASTATIN CA 40 MG TABLET (FP) PO SCH (21:30)
[2019-02-07] MEDS: METOPROLOL TARTRATE 25 MG TABLET (FP) PO SCH ×2 (06:01→16:00)
[2019-02-07] MEDS: hydrALAZINE HCL 50 MG TABLET (FP) PO SCH ×2 (06:02→16:00)
[2019-02-07] MEDS: CALCIUM ACETATE 667 MG CAPSULE (FP) PO SCH ×2 (08:59→13:04)
[2019-02-07] MEDS: FERROUS SO4 325 MG TABLET (FP) PO SCH (08:59)
[2019-02-07] MEDS ORDERED: EPOETIN ALFA 10,000 UNIT/1 ML VIAL IVPUSH ONE (09:30)
[2019-02-07] MEDS: SPIRONOLACTONE 25 MG TABLET (FP) PO SCH ×2 (10:07→13:03)
[2019-02-07] MEDS: LOSARTAN POTASSIUM 50 MG TABLET (FP) PO SCH ×2 (10:07→12:54)
[2019-02-07] MEDS: NIFEdipine E.R. 90 MG TABLET (FP) PO SCH (10:07)
[2019-02-07] MEDS: PANTOPRAZOLE 40 MG TABLET (FP) PO SCH ×2 (10:08→13:03)
[2019-02-07] MEDS: PHENYTOIN NA EXTENDED 100 MG CAPSULE (FP) PO SCH ×2 (10:08→12:55)
[2019-02-07] MEDS: APIXABAN 5 MG TABLET PO SCH ×2 (10:08→13:03)
--- NOTE | 2019-02-07 13:53 | PN ---
Progress Note, Physician - Current Medication List Current Medications: Active Medications Acetaminophen (Tylenol -) 650 mg PO Q6H PRN PRN Reason: FEVER Last Admin: 02/04/19 17:13 Dose: 650 mg Apixaban (Eliquis -) 5 mg PO BID [facility] Last Admin: 02/07/19 13:03 Dose: 5 mg Atorvastatin Calcium (Lipitor -) 40 mg PO HS [facility] Last Admin: 02/06/19 21:30 Dose: 40 mg Calcium Acetate (Phoslo -) 1,334 mg PO TIDCM [facility] Last Admin: 02/07/19 13:04 Dose: 1,334 mg Fentanyl (Sublimaze Injection -) 25 mcg IVPUSH [id number] PRN PRN Reason: PAIN-PACU ORDER X 4 DOSES ONLY Last Admin: 01/30/19 12:52 Dose: 25 mcg Ferrous Sulfate (Feosol -) 325 mg PO BIDWM [facility] Last Admin: 02/07/19 08:59 Dose: Not Given Guaifenesin (Robitussin -) 10 ml PO Q6H PRN PRN Reason: COUGH Hydralazine HCl (Apresoline -) 50 mg PO TID [facility] Last Admin: 02/07/19 06:02 Dose: 50 mg Sodium Chloride (Normal Saline -) 250 mls @ 3,000 mls/hr IV PRN PRN PRN Reason: Hypotension during Dialysis Stop: 02/07/19 16:29 Sodium Chloride (Normal Saline -) 250 mls @ 3,000 mls/hr IV PRN PRN PRN Reason: Hypotension during Dialysis Stop: 02/07/19 19:16 Losartan Potassium (Cozaar -) 100 mg PO DAILY [facility] Last Admin: 02/07/19 12:54 Dose: 100 mg Metoprolol Tartrate (Lopressor -) 75 mg PO TID [facility] Last Admin: 02/07/19 06:01 Dose: 75 mg Nifedipine (Procardia Xl -) 90 mg PO DAILY [facility] Last Admin: 02/06/19 09:58 Dose: Not Given Ondansetron HCl (Zofran Injection) 4 mg IVPUSH Q6H PRN PRN Reason: NAUSEA AND/OR VOMITING Pantoprazole Sodium (Protonix -) 40 mg PO DAILY [facility] Last Admin: 02/07/19 13:03 Dose: 40 mg Phenytoin Sodium (Dilantin -) 200 mg PO BID [facility] Last Admin: 02/07/19 12:55 Dose: 200 mg Spironolactone (Aldactone -) 50 mg PO DAILY [facility] Last Admin: 02/07/19 13:03 Dose: 50 mg - Objective Vital Signs: Vital Signs Temperature 98.8 F 02/07/19 12:33 Pulse Rate 90 02/07/19 12:33 Respiratory Rate 19 02/07/19 12:33 Blood Pressure 154/87 02/07/19 12:33 O2 Sat by Pulse Oximetry (%) 97 02/06/19 21:00 Labs: CBC, BMP 02/04/19 09:50 02/04/19 09:12 INR, PTT INR 1.04 (0.83-1.09) 01/30/19 06:10
--- NOTE | 2019-02-07 15:11 | PN ---
Progress Note, Physician History of Present Illness: Pt seen and examined at bedside. She tolerated HD today. She denies shortness of breath. - Current Medication List Current Medications: Active Medications Acetaminophen (Tylenol -) 650 mg PO Q6H PRN PRN Reason: FEVER Last Admin: 02/04/19 17:13 Dose: 650 mg Apixaban (Eliquis -) 5 mg PO BID [facility] Last Admin: 02/07/19 13:03 Dose: 5 mg Atorvastatin Calcium (Lipitor -) 40 mg PO HS [facility] Last Admin: 02/06/19 21:30 Dose: 40 mg Calcium Acetate (Phoslo -) 1,334 mg PO TIDCM [facility] Last Admin: 02/07/19 13:04 Dose: 1,334 mg Fentanyl (Sublimaze Injection -) 25 mcg IVPUSH [id number] PRN PRN Reason: PAIN-PACU ORDER X 4 DOSES ONLY Last Admin: 01/30/19 12:52 Dose: 25 mcg Ferrous Sulfate (Feosol -) 325 mg PO BIDWM [facility] Last Admin: 02/07/19 08:59 Dose: Not Given Guaifenesin (Robitussin -) 10 ml PO Q6H PRN PRN Reason: COUGH Hydralazine HCl (Apresoline -) 50 mg PO TID [facility] Last Admin: 02/07/19 06:02 Dose: 50 mg Sodium Chloride (Normal Saline -) 250 mls @ 3,000 mls/hr IV PRN PRN PRN Reason: Hypotension during Dialysis Stop: 02/07/19 16:29 Sodium Chloride (Normal Saline -) 250 mls @ 3,000 mls/hr IV PRN PRN PRN Reason: Hypotension during Dialysis Stop: 02/07/19 19:16 Losartan Potassium (Cozaar -) 100 mg PO DAILY [facility] Last Admin: 02/07/19 12:54 Dose: 100 mg Metoprolol Tartrate (Lopressor -) 75 mg PO TID [facility] Last Admin: 02/07/19 06:01 Dose: 75 mg Nifedipine (Procardia Xl -) 90 mg PO DAILY [facility] Last Admin: 02/06/19 09:58 Dose: Not Given Ondansetron HCl (Zofran Injection) 4 mg IVPUSH Q6H PRN PRN Reason: NAUSEA AND/OR VOMITING Pantoprazole Sodium (Protonix -) 40 mg PO DAILY [facility] Last Admin: 02/07/19 13:03 Dose: 40 mg Phenytoin Sodium (Dilantin -) 200 mg PO BID [facility] Last Admin: 02/07/19 12:55 Dose: 200 mg Spironolactone (Aldactone -) 50 mg PO DAILY [facility] Last Admin: 02/07/19 13:03 Dose: 50 mg - Objective Vital Signs: Vital Signs Temperature 98.8 F 02/07/19 12:33 Pulse Rate 90 02/07/19 12:33 Respiratory Rate 02/07/19 12:33 Blood Pressure 154/87 02/07/19 12:33 O2 Sat by Pulse Oximetry (%) 97 02/07/19 09:00 Constitutional: Yes: Calm Eyes: Yes: Conjunctiva Clear HENT: Yes: Atraumatic Neck: Yes: Supple Cardiovascular: Yes: S1, S2 Respiratory: Yes: CTA Bilaterally Gastrointestinal: Yes: Soft, Abdomen, Obese Genitourinary: Yes: WNL Musculoskeletal: Yes: WNL Extremities: Yes: WNL Edema: No Neurological: Yes: Oriented Psychiatric: Yes: Oriented Labs: CBC, BMP 02/04/19 09:50 02/04/19 09:12 INR, PTT INR 1.04 (0.83-1.09) 01/30/19 06:10 Problem List - Problems (1) Anemia Code(s): D64.9 - ANEMIA, UNSPECIFIED Qualifiers: Anemia type: unspecified type Qualified Code(s): D64.9 - Anemia, unspecified (2) Hyperkalemia Code(s): E87.5 - HYPERKALEMIA (3) Renal failure Code(s): N19 - UNSPECIFIED KIDNEY FAILURE Qualifiers: Renal failure chronicity: unspecified chronicity Qualified Code(s): N19 - Unspecified kidney failure Assessment/Plan Current Medications Generic Name Dose Route Start Last Admin Trade Name Freq PRN Reason Stop Dose Admin Acetaminophen 650 mg 01/30/19 12:42 02/04/19 17:13 Tylenol - PO 650 mg Q6H PRN Administration FEVER Apixaban 5 mg 01/31/19 22:00 02/07/19 13:03 Eliquis - PO 5 mg BID [facility] Administration Atorvastatin Calcium 40 mg 01/30/19 22:00 02/06/19 21:30 Lipitor - PO 40 mg HS [facility] Administration Calcium Acetate 1,334 mg 01/30/19 17:30 02/07/19 13:04 Phoslo - PO 1,334 mg TIDCM [facility] Administration Fentanyl 25 mcg 01/30/19 12:42 01/30/19 12:52 Sublimaze Injection - IVPUSH 25 mcg [id number] PRN Administration PAIN-PACU ORDER X 4 DOSES ONLY Ferrous Sulfate 325 mg 01/30/19 17:30 02/07/19 08:59 Feosol - PO Not Given BIDWM [facility] Guaifenesin 10 ml 01/30/19 12:42 Robitussin - PO Q6H PRN COUGH Hydralazine HCl 50 mg 01/30/19 14:00 02/07/19 06:02 Apresoline - PO 50 mg TID [facility] Administration Sodium Chloride 250 mls @ 3,000 mls/hr 02/06/19 16:29 Normal Saline - IV 02/07/19 16:29 PRN PRN Hypotension during Dialysis Sodium Chloride 250 mls @ 3,000 mls/hr 02/06/19 19:16 Normal Saline - IV 02/07/19 19:16 PRN PRN Hypotension during Dialysis Losartan Potassium 100 mg 01/31/19 10:00 02/07/19 12:54 Cozaar - PO 100 mg DAILY [facility] Administration Metoprolol Tartrate 75 mg 01/30/19 14:00 02/07/19 06:01 Lopressor - PO 75 mg TID [facility] Administration Nifedipine 90 mg 01/31/19 10:00 02/06/19 09:58 Procardia Xl - PO Not Given DAILY [facility] Ondansetron HCl 4 mg 01/30/19 12:42 Zofran Injection IVPUSH Q6H PRN NAUSEA AND/OR VOMITING Pantoprazole Sodium 40 mg 01/31/19 10:00 02/07/19 13:03 Protonix - PO 40 mg DAILY [facility] Administration Phenytoin Sodium 200 mg 01/30/19 22:00 02/07/19 12:55 Dilantin - PO 200 mg BID [facility] Administration Spironolactone 50 mg 01/31/19 10:00 02/07/19 13:03 Aldactone - PO 50 mg DAILY [facility] Administration Laboratory Tests 02/07/19 08:00 Hep Bs Antigen Pending Impression 1. SOHAIL 2. lower ext edema 3. anemia 4. HTN 5. arthritis 6. nephrotic range proteinura 7. obesity 8. positive hep c virus on last admission 9. CKD 10. ESRD 11. hypokalemia 12. a-fib 13. hep c Plan - pt tolerated HD today - pt being discharged to [facility] for Renal [facility] - epogen for anemia - hep b s ag pending - will need GI follow up for Hep C - renal diet
[2019-02-07 16:09] VITALS: BP 149/83; PULSE 92; TEMP 98.8
--- NOTE | 2019-02-07 17:48 | DS ---
Physical Examination Vital Signs: Vital Signs Temperature 98.8 F 02/07/19 16:07 Pulse Rate 92 H 02/07/19 16:07 Respiratory Rate 20 02/07/19 16:07 Blood Pressure 149/83 02/07/19 16:07 O2 Sat by Pulse Oximetry (%) 97 02/07/19 09:00 Constitutional: Yes: No Distress HENT: Yes: Atraumatic Neck: Yes: Supple Cardiovascular: Yes: Regular Rate and Rhythm Respiratory: Yes: CTA Bilaterally Gastrointestinal: Yes: Normal Bowel Sounds Extremities: Yes: WNL Neurological: Yes: Alert, Oriented Labs: CBC, BMP 02/04/19 09:50 02/04/19 09:12 Discharge Summary Reason For Visit: ANEMIA, RENAL FAILURE HYPERKALEMIA - Instructions Disposition: [facility] - Home Medications Comprehensive Discharge Medication List: Ambulatory Orders Gabapentin 300 mg PO TID 12/17/18 Phenytoin Sodium Extended 200 mg PO BID 12/17/18 Atorvastatin Ca [Lipitor] 40 mg PO HS tablet 12/24/18 Ferrous Sulfate [Feosol] 325 mg PO BIDWM ud 12/24/18 Sennosides [Senna -] 2 tab PO HS tablet 12/24/18 Calcium Acetate [Phoslo -] 1,334 mg PO TIDCM capsule 01/31/19 Losartan Potassium [Cozaar -] 100 mg PO DAILY tablet 01/31/19 Metoprolol Tartrate [Lopressor -] 75 mg PO TID tablet 01/31/19 Nifedipine ER [Procardia XL -] 90 mg PO DAILY tab.er.24 01/31/19 Pantoprazole Sodium [Protonix -] 40 mg PO DAILY tablet.ec 01/31/19 Spironolactone [Aldactone -] 50 mg PO DAILY tablet 01/31/19 hydrALAZINE HCL [Apresoline -] 50 mg PO TID tablet 01/31/19 Apixaban [Eliquis -] 5 mg PO BID tablet 02/03/19 dc to [facility]
[2019-02-09 06:41] LABS: HEP B CORE AB, TOT Negative (Negative)
== END 2019-02-07 17:06 | DRG 469 ==
LOC: JER 12:10 → JERBED 14:12 → J8W 21:13 → J2W 01-23 15:35 → J6S 01-31 18:59
PROVIDERS: ADMIT Internal Medicine; ATTEND Internal Medicine
PROC: 05HM33Z Insertion of Infusion Device into Right Internal Jugular Vein, Percutaneous Approach (ICD-10-PCS; principal; 2019-01-14)
PROC: B513ZZA Fluoroscopy of Right Jugular Veins, Guidance (ICD-10-PCS; 2019-01-14)
PROC: 5A1D70Z Performance of Urinary Filtration, Intermittent, Less than 6 Hours Per Day (ICD-10-PCS; 2019-01-14)
PROC: 5A1D70Z Performance of Urinary Filtration, Intermittent, Less than 6 Hours Per Day (ICD-10-PCS; 2019-01-15)
PROC: 5A1D70Z Performance of Urinary Filtration, Intermittent, Less than 6 Hours Per Day (ICD-10-PCS; 2019-01-17)
PROC: 5A1D70Z Performance of Urinary Filtration, Intermittent, Less than 6 Hours Per Day (ICD-10-PCS; 2019-01-20)
PROC: 5A1D70Z Performance of Urinary Filtration, Intermittent, Less than 6 Hours Per Day (ICD-10-PCS; 2019-01-22)
PROC: 5A1D70Z Performance of Urinary Filtration, Intermittent, Less than 6 Hours Per Day (ICD-10-PCS; 2019-01-25)
PROC: 0JH63XZ Insertion of Tunneled Vascular Access Device into Chest Subcutaneous Tissue and Fascia, Percutaneous Approach (ICD-10-PCS; 2019-01-30)
PROC: 05HY33Z Insertion of Infusion Device into Upper Vein, Percutaneous Approach (ICD-10-PCS; 2019-01-30)
PROC: 5A1D70Z Performance of Urinary Filtration, Intermittent, Less than 6 Hours Per Day (ICD-10-PCS; 2019-01-30)
PROC: 5A1D70Z Performance of Urinary Filtration, Intermittent, Less than 6 Hours Per Day (ICD-10-PCS; 2019-02-04)
DX: N17.9 Acute kidney failure, unspecified (principal); G40.909 Epilepsy, unspecified, not intractable, without status epilepticus; E87.6 Hypokalemia; E87.5 Hyperkalemia; E83.42 Hypomagnesemia; B19.20 Unspecified viral hepatitis C without hepatic coma; I16.1 Hypertensive emergency; M17.12 Unilateral primary osteoarthritis, left knee; D64.9 Anemia, unspecified; R80.9 Proteinuria, unspecified; E66.01 Morbid (severe) obesity due to excess calories; R60.0 Localized edema; Z68.41 Body mass index [BMI] 40.0-44.9, adult; J44.9 Chronic obstructive pulmonary disease, unspecified; G62.89 Other specified polyneuropathies; E78.5 Hyperlipidemia, unspecified; A41.89 Other specified sepsis; D72.829 Elevated white blood cell count, unspecified; N39.0 Urinary tract infection, site not specified; B96.82 Vibrio vulnificus as the cause of diseases classified elsewhere; R50.9 Fever, unspecified; I48.0 Paroxysmal atrial fibrillation; F17.210 Nicotine dependence, cigarettes, uncomplicated; I13.2 Hypertensive heart and chronic kidney disease with heart failure and with stage 5 chronic kidney disease, or end stage renal disease; N18.6 End stage renal disease; I50.33 Acute on chronic diastolic (congestive) heart failure; W18.39XA Other fall on same level, initial encounter; Y92.098 Other place in other non-institutional residence as the place of occurrence of the external cause; Z86.73 Personal history of transient ischemic attack (TIA), and cerebral infarction without residual deficits; Z99.2 Dependence on renal dialysis; Z87.891 Personal history of nicotine dependence
CPT/HCPCS: 36415; 36430; 70450-TC; 71045-TC-FY; 72125-TC; 73560-TC-LT-FY; 76000-TC-FY; 80048; 80053; 80076; 80185; 81003; 82272; 82550; 82553; 82565; 83735; 83880; 84100; 84484; 84520; 85025; 85027; 85610; 85730; 86704; 86705; 86706; 86850; 86900; 86901; 86922; 87040; 87086; 87186; 87324; 87340; 87350; 87449; 87522; 88300-TC; 93005; 93010; 93306-TC; 93931; 93971; 94640; 94760; 97116-GP; 97162-GP; 99282-25; J0885; J1644; P9038; P9058

== ENCOUNTER 2022-01-26 12:53 | Inpatient (IN) | payer OTHER ==
[2022-01-26] MEDS ORDERED: SODIUM CHLORIDE 0.9% 500 ML INFUS.BAG IV ONE ×2 (13:45→15:07)
[2022-01-26] MEDS ORDERED: ACETAMINOPHEN 1000 MG/100 ML BAG IVPB ONE (13:46)
[2022-01-26] MEDS ORDERED: ACETAMINOPHEN INJECTION 100 ML IVPB ONE (13:54)
[2022-01-26 14:10] LABS: BASO % 0.6 % (0-2.0); HEMATOCRIT 38.7 % (32.4-45.2); HEMOGLOBIN 12.6 GM/dL (10.7-15.3); LYMPH % 20.7 % (8-40); MCHC 32.6 g/dl (32.0-36.0); MEAN CELL VOLUME 88.7 fl (80-96); MEAN PLT VOLUME 7.6 fl (7.5-11.1); NEUT % 70.7 % (42.8-82.8); PLATELET COUNT 165 10^3/uL (134-434); RBC 4.36 M/mm3 (3.60-5.2); RDW 14.6 % (11.6-15.6); WHITE BLOOD COUNT 7.3 K/mm3 (4.0-10.0)
[2022-01-26 14:18] LABS: INR 1.15 (0.83-1.09); PROTHROMBIN TIME (PATIENT) 13.3 SEC (9.7-13.0)
[2022-01-26 14:20] LABS: ACTIVATED PTT 32.7 SECONDS (25.2-36.5)
[2022-01-26 14:23] LABS: MAGNESIUM 2.9 mg/dL (1.8-2.4)
[2022-01-26 14:27] LABS: PHOSPHOROUS 3.9 mg/dL (2.5-4.9)
[2022-01-26 14:42] LABS: CHLORIDE 96 mmol/L (98-107); SODIUM 139 mmol/L (136-145)
[2022-01-26 14:43] LABS: CALCIUM 9.9 mg/dL (8.5-10.1)
[2022-01-26 14:44] LABS: ALBUMIN 3.4 g/dl (3.4-5.0); ANION GAP 9 MMOL/L (8-16); BLOOD UREA NITROGEN 22.8 mg/dL (7-18); CO2 33 mmol/L (21-32); GLUCOSE,RANDOM 93 mg/dL (74-106)
[2022-01-26 14:47] LABS: LACTIC ACID 2.4 mmol/L (0.4-2.0); SGOT/AST 14 U/L (15-37); SGPT/ALT 16 U/L (13-61)
[2022-01-26 14:49] LABS: BILIRUBIN,TOTAL 0.3 mg/dL (0.2-1)
[2022-01-26 14:50] LABS: ALK PHOS 275 U/L (45-117)
[2022-01-26 14:55] LABS: CREATININE 8.8 mg/dL (0.55-1.3)
[2022-01-26] MEDS ORDERED: VANCOMYCIN 1 GM in D5W (PRE-DOCKED) 1,000 MG/250 ML IVPB ONE (15:03)
[2022-01-26] MEDS ORDERED: PIPERACILLIN/TAZOB 3.375 GM 3.375 GM in DEXTROSE 5%-WATER - 50 ML IVPB ONE (15:03)
[2022-01-26] MEDS ORDERED: LACTATED RINGERS SOLUTION 1000 ML INFUS.BAG IV ONE ×3 (15:43→18:31)
[2022-01-26] MEDS ORDERED: PIPERACILLIN/TAZOB 3.375 GM 3.375 GM/50 ML BAG IVPB ONE (15:55)
[2022-01-26] MEDS ORDERED: VANCOMYCIN 1 GRAM (PRE-DOCKED) 1,000 MG/250 ML BAG IVPB ONE (16:27)
[2022-01-26] MEDS ORDERED: MIDODRINE HCL 5 MG TABLET PO SCH (18:00)
[2022-01-26 19:12] LABS: VENOUS BASE EXCESS 4.2 mmol/L (-2-2); VENOUS O2 SATURATION 36.1 % (70-80); VENOUS PCO2 59.2 mmHg (38-52); VENOUS PH 7.344 (7.310-7.410)
[2022-01-26] MEDS: ALBUMIN HUMAN 25% 12.5 GM/50 ML VIAL IV SCH ×2 (20:12→20:45)
[2022-01-26] MEDS ORDERED: MIDODRINE HCL 5 MG TABLET PO ONE (21:40)
[2022-01-26] MEDS ORDERED: ACETAMINOPHEN 325 MG TABLET (FP) PO PRN (23:57)
[2022-01-27] MEDS ORDERED: APIXABAN 5 MG TABLET ONE ×2 (01:49→10:23)
[2022-01-27] MEDS ORDERED: levETIRAcetam 500 MG TABLET (FP) PO ONE ×2 (01:50→10:23)
[2022-01-27] MEDS ORDERED: GABAPENTIN 300 MG CAPSULE ONE ×4 (01:50→15:29)
[2022-01-27] MEDS: APIXABAN 5 MG TABLET PO SCH ×3 (02:07→23:35)
[2022-01-27] MEDS: levETIRAcetam 500 MG TABLET (FP) PO SCH ×3 (02:07→23:36)
[2022-01-27] MEDS: GABAPENTIN 300 MG CAPSULE PO SCH ×4 (02:07→23:36)
[2022-01-27] MEDS ORDERED: PIPERACILLIN/TAZOB 2.25 GM 2.25 GM/50 ML BAG IVPB ONE ×3 (06:19→18:23)
[2022-01-27] MEDS: PIPERACILLIN/TAZOB 2.25 GM 2.25 GM in DEXTROSE 5%-WATER - 50 ML IVPB SCH ×3 (06:32→18:35)
[2022-01-27] MEDS ORDERED: HEPARIN NA (PORCINE) 5,000 UNITS/ML 1ML VIAL SQ SCH (10:00)
[2022-01-27] MEDS ORDERED: FAMOTIDINE 10 MG TABLET ONE (10:23)
[2022-01-27] MEDS ORDERED: NAPH,MB-DB/K PH,MBDB POWDER PACKET ONE (10:23)
[2022-01-27] MEDS ORDERED: CITALOPRAM HYDROBROMIDE 10 MG TABLET ONE (10:24)
[2022-01-27] MEDS ORDERED: FERROUS SO4 325 MG TABLET (FP) ONE ×2 (10:24→18:23)
[2022-01-27] MEDS: FERROUS SO4 325 MG TABLET (FP) PO SCH ×2 (10:35→18:35)
[2022-01-27] MEDS: FAMOTIDINE 10 MG TABLET PO SCH (10:35)
[2022-01-27] MEDS: CALCIUM ACETATE 667 MG CAPSULE (FP) PO SCH ×3 (10:35→18:35)
[2022-01-27] MEDS: CITALOPRAM HYDROBROMIDE 10 MG TABLET PO SCH (10:35)
[2022-01-27] MEDS: MIDODRINE HCL 5 MG TABLET PO SCH ×3 (10:36→18:35)
[2022-01-27 13:41] LABS: EOS % 2.3 % (0-4.5); HEMATOCRIT 35.9 % (32.4-45.2); HEMOGLOBIN 11.3 GM/dL (10.7-15.3); LYMPH % 24.4 % (8-40); MCH 28.2 pg (25.7-33.7); MCHC 31.5 g/dl (32.0-36.0); MEAN CELL VOLUME 89.5 fl (80-96); MEAN PLT VOLUME 7.6 fl (7.5-11.1); MONO % 5.4 % (3.8-10.2); NEUT % 66.9 % (42.8-82.8); PLATELET COUNT 154 10^3/uL (134-434); RBC 4.01 M/mm3 (3.60-5.2); RDW 14.7 % (11.6-15.6); WHITE BLOOD COUNT 6.4 K/mm3 (4.0-10.0)
[2022-01-27 14:00] LABS: CHLORIDE 98 mmol/L (98-107); SODIUM 136 mmol/L (136-145)
[2022-01-27 14:02] LABS: CALCIUM 9.3 mg/dL (8.5-10.1)
[2022-01-27 14:03] LABS: ALBUMIN 3.1 g/dl (3.4-5.0); ANION GAP 12 MMOL/L (8-16); BLOOD UREA NITROGEN 28.2 mg/dL (7-18); CO2 26 mmol/L (21-32); GLUCOSE,RANDOM 73 mg/dL (74-106); MAGNESIUM 2.5 mg/dL (1.8-2.4)
[2022-01-27 14:06] LABS: PHOSPHOROUS 5.2 mg/dL (2.5-4.9); SGOT/AST 17 U/L (15-37); SGPT/ALT 15 U/L (13-61)
[2022-01-27 14:07] LABS: BILIRUBIN,TOTAL 0.4 mg/dL (0.2-1)
[2022-01-27 14:15] LABS: ALK PHOS 222 U/L (45-117); CREATININE 9.7 mg/dL (0.55-1.3)
[2022-01-27] MEDS ORDERED: SODIUM CHLORIDE 250 ML IV PRN (14:46)
[2022-01-27] MEDS ORDERED: VANCOMYCIN 1 GM/200 ML PREMIX BAG IVPB SCH (17:00)
[2022-01-27] MEDS ORDERED: VANCOMYCIN 1 GRAM (PRE-DOCKED) 1,000 MG/250 ML BAG IVPB ONE (18:23)
[2022-01-27 22:09] VITALS: BMI 43.9
[2022-01-27] MEDS: SENNOSIDES 8.6MG TABLET (FP) PO SCH (23:36)
[2022-01-27] MEDS: ATORVASTATIN CA 20 MG TABLET (FP) PO SCH (23:36)
[2022-01-28] MEDS ORDERED: PIPERACILLIN/TAZOB 2.25 GM 2.25 GM in DEXTROSE 5%-WATER - 50 ML IVPB SCH (02:00)
[2022-01-28] MEDS: GABAPENTIN 300 MG CAPSULE PO SCH ×3 (06:08→22:17)
[2022-01-28 07:19] LABS: HEMOGLOBIN 10.7 GM/dL (10.7-15.3); MCH 28.8 pg (25.7-33.7); MCHC 32.5 g/dl (32.0-36.0); MEAN CELL VOLUME 88.7 fl (80-96); MEAN PLT VOLUME 7.8 fl (7.5-11.1); PLATELET COUNT 165 10^3/uL (134-434); RBC 3.73 M/mm3 (3.60-5.2); RDW 14.4 % (11.6-15.6); WHITE BLOOD COUNT 5.7 K/mm3 (4.0-10.0)
[2022-01-28 07:35] LABS: CHLORIDE 100 mmol/L (98-107); SODIUM 137 mmol/L (136-145)
[2022-01-28 07:37] LABS: ANION GAP 10 MMOL/L (8-16); BLOOD UREA NITROGEN 32.3 mg/dL (7-18); CO2 27 mmol/L (21-32); GLUCOSE,RANDOM 83 mg/dL (74-106)
[2022-01-28 07:43] LABS: CREATININE 10.7 mg/dL (0.55-1.3)
[2022-01-28] MEDS: CALCIUM ACETATE 667 MG CAPSULE (FP) PO SCH ×3 (08:10→18:14)
[2022-01-28] MEDS: FERROUS SO4 325 MG TABLET (FP) PO SCH ×2 (08:21→18:14)
[2022-01-28] MEDS: MIDODRINE HCL 5 MG TABLET PO SCH ×3 (09:44→18:14)
[2022-01-28] MEDS: APIXABAN 5 MG TABLET PO SCH ×2 (09:44→22:17)
[2022-01-28] MEDS: levETIRAcetam 500 MG TABLET (FP) PO SCH ×2 (09:44→22:16)
[2022-01-28] MEDS: CITALOPRAM HYDROBROMIDE 10 MG TABLET PO SCH (10:48)
[2022-01-28] MEDS ORDERED: VANCOMYCIN/WATER FOR INJ (PEG) 1,000 MG/200 ML BAG IVPB ONE (12:18)
[2022-01-28] MEDS: ALBUMIN HUMAN 25% 12.5 GM/50 ML VIAL IV SCH ×4 (13:00→15:30)
[2022-01-28] MEDS ORDERED: EPOETIN ALFA-EPBX 4,000 UNIT/ML VIAL SQ ONE (14:46)
[2022-01-28] MEDS ORDERED: VANCOMYCIN 1 GM/200 ML PREMIX BAG IVPB SCH (17:00)
[2022-01-28] MEDS ORDERED: PIPERACILLIN/TAZOBACTAM 2.25 GM VIAL IVPB ONE ×2 (18:10→22:05)
[2022-01-28] MEDS ORDERED: DEXTROSE 5%-WATER - 50 ML IVPB ONE ×2 (18:10→22:05)
[2022-01-28] MEDS: PIPERACILLIN/TAZOB 2.25 GM 2.25 GM in DEXTROSE 5%-WATER - 50 ML IVPB SCH (18:15)
[2022-01-28] MEDS ORDERED: diphenhydrAMINE HCL 25 MG CAPSULE (FP) PO ONE (19:28)
[2022-01-28] MEDS: SENNOSIDES 8.6MG TABLET (FP) PO SCH (21:48)
[2022-01-28] MEDS: ATORVASTATIN CA 20 MG TABLET (FP) PO SCH (22:16)
[2022-01-29] MEDS: PIPERACILLIN/TAZOB 2.25 GM 2.25 GM in DEXTROSE 5%-WATER - 50 ML IVPB SCH ×3 (01:36→17:09)
[2022-01-29] MEDS: GABAPENTIN 300 MG CAPSULE PO SCH ×3 (07:00→21:21)
[2022-01-29] MEDS ORDERED: DEXTROSE 5%-WATER - 50 ML IVPB ONE ×3 (10:03→21:31)
[2022-01-29] MEDS ORDERED: PIPERACILLIN/TAZOBACTAM 2.25 GM VIAL IVPB ONE ×3 (10:03→21:31)
[2022-01-29] MEDS: MIDODRINE HCL 5 MG TABLET PO SCH ×3 (10:14→17:10)
[2022-01-29] MEDS: CALCIUM ACETATE 667 MG CAPSULE (FP) PO SCH ×3 (10:15→17:09)
[2022-01-29] MEDS: levETIRAcetam 500 MG TABLET (FP) PO SCH ×2 (10:15→21:21)
[2022-01-29] MEDS: APIXABAN 5 MG TABLET PO SCH ×2 (10:15→21:21)
[2022-01-29] MEDS: FERROUS SO4 325 MG TABLET (FP) PO SCH ×2 (10:15→17:09)
[2022-01-29] MEDS: CITALOPRAM HYDROBROMIDE 10 MG TABLET PO SCH (10:16)
[2022-01-29] MEDS: FAMOTIDINE 10 MG TABLET PO SCH (10:16)
[2022-01-29] MEDS: ATORVASTATIN CA 20 MG TABLET (FP) PO SCH (21:21)
[2022-01-29] MEDS: SENNOSIDES 8.6MG TABLET (FP) PO SCH (21:22)
[2022-01-30] MEDS: PIPERACILLIN/TAZOB 2.25 GM 2.25 GM in DEXTROSE 5%-WATER - 50 ML IVPB SCH ×2 (01:32→10:05)
[2022-01-30] MEDS: GABAPENTIN 300 MG CAPSULE PO SCH ×3 (05:48→21:20)
[2022-01-30 06:49] LABS: BASO % 0.7 % (0-2.0); EOS % 4.2 % (0-4.5); HEMATOCRIT 34.7 % (32.4-45.2); HEMOGLOBIN 11.1 GM/dL (10.7-15.3); LYMPH % 30.4 % (8-40); MCH 28.7 pg (25.7-33.7); MCHC 32.1 g/dl (32.0-36.0); MEAN CELL VOLUME 89.5 fl (80-96); MEAN PLT VOLUME 7.6 fl (7.5-11.1); MONO % 9.5 % (3.8-10.2); NEUT % 55.2 % (42.8-82.8); PLATELET COUNT 200 10^3/uL (134-434); RBC 3.88 M/mm3 (3.60-5.2); RDW 14.5 % (11.6-15.6)
[2022-01-30 07:04] LABS: CHLORIDE 102 mmol/L (98-107); SODIUM 139 mmol/L (136-145)
[2022-01-30 07:08] LABS: ALBUMIN 2.8 g/dl (3.4-5.0); ANION GAP 9 MMOL/L (8-16); BLOOD UREA NITROGEN 18.5 mg/dL (7-18); CALCIUM 9.5 mg/dL (8.5-10.1); CO2 28 mmol/L (21-32); GLUCOSE,RANDOM 92 mg/dL (74-106)
[2022-01-30 07:11] LABS: PHOSPHOROUS 4.6 mg/dL (2.5-4.9); SGOT/AST 12 U/L (15-37); SGPT/ALT 13 U/L (13-61)
[2022-01-30 07:12] LABS: BILIRUBIN,TOTAL 0.3 mg/dL (0.2-1)
[2022-01-30 07:13] LABS: TOT PROT 6.1 g/dl (6.4-8.2)
[2022-01-30 07:37] LABS: ALK PHOS 185 U/L (45-117); CREATININE 9.5 mg/dL (0.55-1.3)
[2022-01-30] MEDS: FERROUS SO4 325 MG TABLET (FP) PO SCH ×2 (08:11→17:00)
[2022-01-30] MEDS: CALCIUM ACETATE 667 MG CAPSULE (FP) PO SCH ×3 (08:11→17:00)
[2022-01-30] MEDS ORDERED: DEXTROSE 5%-WATER - 50 ML IVPB ONE (09:59)
[2022-01-30] MEDS ORDERED: PIPERACILLIN/TAZOBACTAM 2.25 GM VIAL IVPB ONE (09:59)
[2022-01-30] MEDS: MIDODRINE HCL 5 MG TABLET PO SCH ×3 (10:05→17:00)
[2022-01-30] MEDS: levETIRAcetam 500 MG TABLET (FP) PO SCH ×2 (10:05→21:20)
[2022-01-30] MEDS: APIXABAN 5 MG TABLET PO SCH ×2 (10:06→21:20)
[2022-01-30] MEDS: CITALOPRAM HYDROBROMIDE 10 MG TABLET PO SCH (10:06)
[2022-01-30] MEDS: diphenhydrAMINE HCL 25 MG CAPSULE (FP) PO PRN ×2 (10:11→21:23)
[2022-01-30] MEDS ORDERED: SODIUM CHLORIDE 250 ML IV PRN (13:37)
[2022-01-30] MEDS: ATORVASTATIN CA 20 MG TABLET (FP) PO SCH (21:19)
[2022-01-30] MEDS: SENNOSIDES 8.6MG TABLET (FP) PO SCH (21:20)
[2022-01-31] MEDS: GABAPENTIN 300 MG CAPSULE PO SCH ×3 (06:17→21:50)
[2022-01-31] MEDS: FERROUS SO4 325 MG TABLET (FP) PO SCH ×2 (08:35→17:11)
[2022-01-31] MEDS: CALCIUM ACETATE 667 MG CAPSULE (FP) PO SCH ×3 (08:35→17:11)
[2022-01-31] MEDS: MIDODRINE HCL 5 MG TABLET PO SCH ×4 (08:35→17:12)
[2022-01-31 09:20] LABS: HEMATOCRIT 35.2 % (32.4-45.2); HEMOGLOBIN 11.2 GM/dL (10.7-15.3); MCH 28.2 pg (25.7-33.7); MCHC 31.9 g/dl (32.0-36.0); MEAN CELL VOLUME 88.5 fl (80-96); MEAN PLT VOLUME 7.4 fl (7.5-11.1); PLATELET COUNT 210 10^3/uL (134-434); RBC 3.98 M/mm3 (3.60-5.2); RDW 15.1 % (11.6-15.6); WHITE BLOOD COUNT 5.2 K/mm3 (4.0-10.0)
[2022-01-31] MEDS: levETIRAcetam 500 MG TABLET (FP) PO SCH ×3 (09:34→21:50)
[2022-01-31] MEDS: APIXABAN 5 MG TABLET PO SCH ×3 (09:34→21:50)
[2022-01-31 09:44] LABS: CHLORIDE 103 mmol/L (98-107); SODIUM 142 mmol/L (136-145)
[2022-01-31 09:50] LABS: ANION GAP 10 MMOL/L (8-16); BLOOD UREA NITROGEN 18.2 mg/dL (7-18); CALCIUM 8.7 mg/dL (8.5-10.1); CO2 30 mmol/L (21-32); GLUCOSE,RANDOM 128 mg/dL (74-106)
[2022-01-31 10:06] LABS: CREATININE 8.6 mg/dL (0.55-1.3)
[2022-01-31] MEDS ORDERED: POTASSIUM CHLORIDE TABS 20 MEQ TABLET.ER (FP) PO ONE (11:15)
[2022-01-31] MEDS: CITALOPRAM HYDROBROMIDE 10 MG TABLET PO SCH (12:15)
[2022-01-31] MEDS: diphenhydrAMINE HCL 25 MG CAPSULE (FP) PO PRN ×2 (12:15→21:50)
[2022-01-31] MEDS: FAMOTIDINE 10 MG TABLET PO SCH (12:15)
[2022-01-31] MEDS ORDERED: HEPARIN NA (PORCINE) 5,000 UNITS/ML 1ML VIAL IVPUSH ONE (13:37)
[2022-01-31] MEDS: ATORVASTATIN CA 20 MG TABLET (FP) PO SCH (21:50)
[2022-01-31] MEDS: SENNOSIDES 8.6MG TABLET (FP) PO SCH (21:51)
[2022-02-01] MEDS: GABAPENTIN 300 MG CAPSULE PO SCH ×3 (05:45→21:43)
[2022-02-01] MEDS: MIDODRINE HCL 5 MG TABLET PO SCH ×3 (10:00→18:18)
[2022-02-01] MEDS: levETIRAcetam 500 MG TABLET (FP) PO SCH ×2 (10:00→21:43)
[2022-02-01] MEDS: CALCIUM ACETATE 667 MG CAPSULE (FP) PO SCH ×3 (10:01→18:17)
[2022-02-01] MEDS: FERROUS SO4 325 MG TABLET (FP) PO SCH ×2 (10:01→18:16)
[2022-02-01] MEDS: APIXABAN 5 MG TABLET PO SCH ×2 (10:02→21:43)
[2022-02-01] MEDS: CITALOPRAM HYDROBROMIDE 10 MG TABLET PO SCH (10:02)
[2022-02-01] MEDS: SENNOSIDES 8.6MG TABLET (FP) PO SCH (21:43)
[2022-02-01] MEDS: ATORVASTATIN CA 20 MG TABLET (FP) PO SCH (21:43)
[2022-02-01] MEDS: diphenhydrAMINE HCL 25 MG CAPSULE (FP) PO PRN (21:49)
[2022-02-02] MEDS: GABAPENTIN 300 MG CAPSULE PO SCH ×3 (06:37→22:23)
[2022-02-02] MEDS: FERROUS SO4 325 MG TABLET (FP) PO SCH ×2 (08:00→17:05)
[2022-02-02] MEDS: CALCIUM ACETATE 667 MG CAPSULE (FP) PO SCH ×3 (08:00→17:05)
[2022-02-02] MEDS ORDERED: SODIUM CHLORIDE 250 ML IV PRN (08:00)
[2022-02-02] MEDS ORDERED: HEPARIN NA (PORCINE) 5,000 UNITS/ML 1ML VIAL IVPUSH ONE (08:00)
[2022-02-02 08:59] LABS: HEMATOCRIT 32.8 % (32.4-45.2); HEMOGLOBIN 10.6 GM/dL (10.7-15.3); MCH 28.7 pg (25.7-33.7); MCHC 32.2 g/dl (32.0-36.0); MEAN CELL VOLUME 89.3 fl (80-96); MEAN PLT VOLUME 7.7 fl (7.5-11.1); PLATELET COUNT 223 10^3/uL (134-434); RBC 3.67 M/mm3 (3.60-5.2); RDW 14.8 % (11.6-15.6); WHITE BLOOD COUNT 6.5 K/mm3 (4.0-10.0)
[2022-02-02 09:18] LABS: CHLORIDE 104 mmol/L (98-107); SODIUM 141 mmol/L (136-145)
[2022-02-02 09:22] LABS: ANION GAP 10 MMOL/L (8-16); BLOOD UREA NITROGEN 32.2 mg/dL (7-18); CALCIUM 8.9 mg/dL (8.5-10.1); CO2 28 mmol/L (21-32); GLUCOSE,RANDOM 83 mg/dL (74-106)
[2022-02-02 09:31] LABS: CREATININE 9.9 mg/dL (0.55-1.3)
[2022-02-02] MEDS: MIDODRINE HCL 5 MG TABLET PO SCH ×3 (09:42→17:05)
[2022-02-02] MEDS: levETIRAcetam 500 MG TABLET (FP) PO SCH ×2 (09:43→22:23)
[2022-02-02] MEDS: APIXABAN 5 MG TABLET PO SCH ×2 (09:43→22:23)
[2022-02-02] MEDS: FAMOTIDINE 10 MG TABLET PO SCH (09:43)
[2022-02-02] MEDS: CITALOPRAM HYDROBROMIDE 10 MG TABLET PO SCH (09:44)
[2022-02-02] MEDS: diphenhydrAMINE HCL 25 MG CAPSULE (FP) PO PRN (19:33)
[2022-02-02] MEDS: SENNOSIDES 8.6MG TABLET (FP) PO SCH (22:23)
[2022-02-02] MEDS: ATORVASTATIN CA 20 MG TABLET (FP) PO SCH (22:23)
[2022-02-03] MEDS: GABAPENTIN 300 MG CAPSULE PO SCH (05:30)
[2022-02-03 05:36] VITALS: BP 128/77; PULSE 82; TEMP 98.1
[2022-02-03] MEDS: FERROUS SO4 325 MG TABLET (FP) PO SCH (08:32)
[2022-02-03] MEDS: CALCIUM ACETATE 667 MG CAPSULE (FP) PO SCH ×2 (08:32→11:59)
[2022-02-03] MEDS: APIXABAN 5 MG TABLET PO SCH (09:56)
[2022-02-03] MEDS: levETIRAcetam 500 MG TABLET (FP) PO SCH (09:57)
[2022-02-03] MEDS: CITALOPRAM HYDROBROMIDE 10 MG TABLET PO SCH (09:57)
[2022-02-03] MEDS: MIDODRINE HCL 5 MG TABLET PO SCH (09:57)
[2022-02-03] MEDS ORDERED: SODIUM CHLORIDE 250 ML IV PRN (13:43)
[2022-02-04] MEDS ORDERED: EPOETIN ALFA-EPBX 4,000 UNIT/ML VIAL SQ ONE (13:43)
== END 2022-02-03 17:24 | DRG 720 ==
LOC: JER 12:53 → JERBED 16:47 → J2W 01-27 21:08
PROVIDERS: ADMIT Internal Medicine
PROC: 5A1D70Z Performance of Urinary Filtration, Intermittent, Less than 6 Hours Per Day (ICD-10-PCS; principal; 2022-01-28)
PROC: 5A1D70Z Performance of Urinary Filtration, Intermittent, Less than 6 Hours Per Day (ICD-10-PCS; 2022-01-31)
PROC: 5A1D70Z Performance of Urinary Filtration, Intermittent, Less than 6 Hours Per Day (ICD-10-PCS; 2022-02-02)
DX: A41.89 Other specified sepsis (principal); U07.1 COVID-19; G93.41 Metabolic encephalopathy; K21.9 Gastro-esophageal reflux disease without esophagitis; D64.9 Anemia, unspecified; I48.91 Unspecified atrial fibrillation; G40.909 Epilepsy, unspecified, not intractable, without status epilepticus; I13.2 Hypertensive heart and chronic kidney disease with heart failure and with stage 5 chronic kidney disease, or end stage renal disease; N18.6 End stage renal disease; I50.32 Chronic diastolic (congestive) heart failure; Z99.2 Dependence on renal dialysis; E86.0 Dehydration; F17.210 Nicotine dependence, cigarettes, uncomplicated; I95.9 Hypotension, unspecified; J44.9 Chronic obstructive pulmonary disease, unspecified; F41.8 Other specified anxiety disorders; G62.89 Other specified polyneuropathies; E66.9 Obesity, unspecified; B19.20 Unspecified viral hepatitis C without hepatic coma; E78.5 Hyperlipidemia, unspecified; R80.8 Other proteinuria; Z68.42 Body mass index [BMI] 45.0-49.9, adult; Z86.73 Personal history of transient ischemic attack (TIA), and cerebral infarction without residual deficits
CPT/HCPCS: 0241U-QW; 36415; 71045-TC-FY; 80048; 80053; 82550; 82553; 82803; 82962; 83605; 83735; 83880; 84100; 84484; 85025; 85027; 85610; 85730; 86803; 86850; 86900; 86901; 87040; 87081; 87340; 87522; 93005; 93010; 99291; C9803-CS; G0480; J1644; P9047; U0003; U0005

== ENCOUNTER 2023-12-20 09:05 | Inpatient (IN) | payer OTHER ==
[2023-12-20 09:45] VITALS: BMI 42.7
[2023-12-20 10:52] LABS: BASO % 1.1 % (0-2.0); EOS % 1.3 % (0-4.5); HEMOGLOBIN 9.8 GM/dL (10.7-15.3); LYMPH % 9.6 % (8-40); MCH 28.1 pg (25.7-33.7); MCHC 32.5 g/dl (32.0-36.0); MEAN CELL VOLUME 86.4 fl (80-96); MONO % 6.1 % (3.8-10.2); NEUT % 81.9 % (42.8-82.8); PLATELET COUNT 272 10^3/uL (134-434); RBC 3.48 M/mm3 (3.60-5.2); RDW 19.4 % (11.6-15.6); WHITE BLOOD COUNT 12.3 K/mm3 (4.0-10.0)
[2023-12-20 10:52] LABS: VENOUS BASE EXCESS 7.3 mmol/L (-2-2); VENOUS O2 SATURATION 21.3 % (70-80); VENOUS PCO2 54.3 mmHg (38-52); VENOUS PH 7.405 (7.310-7.410)
[2023-12-20 10:59] LABS: INR 0.97 (0.83-1.09)
[2023-12-20 11:01] LABS: ACTIVATED PTT 32.3 SECONDS (25.2-36.5)
[2023-12-20 11:18] LABS: POTASSIUM 3.5 mmol/L (3.5-5.1)
[2023-12-20 11:19] LABS: CALCIUM 9.3 mg/dL (8.5-10.1)
[2023-12-20 11:23] LABS: CREATININE 5.6 mg/dL (0.55-1.3)
[2023-12-20 11:25] LABS: TOT PROT 7.1 g/dl (6.4-8.2)
[2023-12-20 11:26] LABS: BILIRUBIN,TOTAL 0.4 mg/dL (0.2-1)
[2023-12-20 11:35] LABS: LACTIC ACID 2.1 mmol/L (0.4-2.0)
[2023-12-20] MEDS: SODIUM CHLORIDE 1,000 ML IV STA (14:56)
[2023-12-20] MEDS: MIDODRINE HCL 5 MG TABLET PO SCH (16:57)
[2023-12-20] MEDS: GABAPENTIN 300 MG CAPSULE PO SCH (16:57)
[2023-12-20] MEDS: levETIRAcetam 500 MG TABLET (FP) PO SCH (17:22)
[2023-12-20] MEDS: APIXABAN 2.5 MG TABLET PO SCH (21:47)
[2023-12-20] MEDS: ATORVASTATIN CA 20 MG TABLET (FP) PO SCH (21:48)
[2023-12-21 08:17] LABS: BASO % 1.2 % (0-2.0); EOS % 1.9 % (0-4.5); HEMOGLOBIN 9.8 GM/dL (10.7-15.3); LYMPH % 15.4 % (8-40); MCH 28.8 pg (25.7-33.7); MCHC 32.5 g/dl (32.0-36.0); MEAN CELL VOLUME 88.5 fl (80-96); MEAN PLT VOLUME 7.9 fl (7.5-11.1); MONO % 10.5 % (3.8-10.2); PLATELET COUNT 209 10^3/uL (134-434); RBC 3.39 M/mm3 (3.60-5.2); RDW 20.4 % (11.6-15.6); WHITE BLOOD COUNT 7.9 K/mm3 (4.0-10.0)
[2023-12-21 08:21] LABS: POTASSIUM 4.4 mmol/L (3.5-5.1)
[2023-12-21 08:23] LABS: ALBUMIN 2.9 g/dl (3.4-5.0); CALCIUM 9.5 mg/dL (8.5-10.1); MAGNESIUM 2.6 mg/dL (1.8-2.4)
[2023-12-21 08:24] LABS: BLOOD UREA NITROGEN 33.7 mg/dL (7-18)
[2023-12-21 08:26] LABS: CREATININE 7.1 mg/dL (0.55-1.3)
[2023-12-21 08:27] LABS: PHOSPHOROUS 5.6 mg/dL (2.5-4.9)
[2023-12-21 08:28] LABS: BILIRUBIN,TOTAL 0.5 mg/dL (0.2-1); TOT PROT 6.7 g/dl (6.4-8.2)
[2023-12-21] MEDS: CITALOPRAM HYDROBROMIDE 10 MG TABLET PO SCH (10:53)
[2023-12-21] MEDS: FAMOTIDINE 10 MG TABLET PO SCH (10:53)
[2023-12-21] MEDS: levETIRAcetam 500 MG TABLET (FP) PO SCH (10:53)
[2023-12-21] MEDS: MAGNESIUM SULF 50% (8.12 MEQ/2 ML-1 GM VIAL) IVPB ONE (10:58)
[2023-12-21] MEDS ORDERED: SODIUM CHLORIDE 250 ML IV PRN (10:59)
[2023-12-21] MEDS: ACETAMINOPHEN 1000 MG/100 ML BAG IVPB PRN (21:43)
[2023-12-22] MEDS: CALCIUM ACETATE 667 MG CAPSULE (FP) PO SCH (08:13)
[2023-12-23] MEDS: DOCUSATE SODIUM 100 MG CAPSULE (FP) PO SCH (13:30)
[2023-12-24] MEDS: AMINO ACIDS/PROTEIN HYDROLYS 30 ML LIQUID.PKT PO SCH (08:41)
[2023-12-24] MEDS ORDERED: SODIUM CHLORIDE 250 ML IV PRN (11:31)
[2023-12-24] MEDS: EPOETIN ALFA-EPBX 10,000 UNIT/ML VIAL SQ ONE (11:50)
[2023-12-24] MEDS: MAGNESIUM HYDROX 2400MG/30ML ORAL SUSPENSION 30 ML CUP PO PRN (14:58)
[2023-12-24] MEDS: HEPARIN NA (PORCINE) 5,000 UNITS/ML 1ML VIAL IVPUSH ONE (15:08)
[2023-12-24 20:24] VITALS: RESP 18
[2023-12-24 20:27] VITALS: BP 130/80; PULSE 83; TEMP 99.8
[2023-12-24] MEDS: ACETAMINOPHEN 325 MG TABLET (FP) PO ONE (21:29)
== END 2023-12-24 21:35 | disposition home or self-care (01) | DRG 100 ==
LOC: JER 09:05 → JERBED 12:31 → J4W 15:38
PROVIDERS: ADMIT Internal Medicine; ATTEND Internal Medicine
PROC: 5A1D70Z Performance of Urinary Filtration, Intermittent, Less than 6 Hours Per Day (ICD-10-PCS; principal; 2023-12-24)
DX: G40.909 Epilepsy, unspecified, not intractable, without status epilepticus (principal); N18.6 End stage renal disease; I13.2 Hypertensive heart and chronic kidney disease with heart failure and with stage 5 chronic kidney disease, or end stage renal disease; I50.32 Chronic diastolic (congestive) heart failure; Z68.41 Body mass index [BMI] 40.0-44.9, adult; Z99.2 Dependence on renal dialysis; J44.9 Chronic obstructive pulmonary disease, unspecified; D64.9 Anemia, unspecified; E66.9 Obesity, unspecified; K21.9 Gastro-esophageal reflux disease without esophagitis; K59.00 Constipation, unspecified
CPT/HCPCS: 0241U-QW; 36415; 70450-TC; 71045-TC-FY; 80053; 80061; 80177; 82550; 82803; 82962; 83036; 83605; 83735; 84100; 84443; 84484; 85025; 85610; 85730; 86704; 86705; 86803; 86850; 86900; 86901; 87040; 87340; 87517; 87522; 93005; 93010; 99285-25; J0131; Q5106

== ENCOUNTER 2024-02-24 12:08 | Inpatient (IN) | payer OTHER ==
[2024-02-24] MEDS ORDERED: levETIRAcetam 500 MG/5 ML INJECTION VIAL IVPB ONE ×2 (13:45→16:56)
[2024-02-24] MEDS: levETIRAcetam 500 MG/5 ML INJECTION VIAL IVPB ONE ×2 (14:13→17:04)
[2024-02-24 14:17] LABS: BASO % 0.7 % (0-2.0); EOS % 1.8 % (0-4.5); HEMATOCRIT 43.2 % (32.4-45.2); HEMOGLOBIN 14.1 GM/dL (10.7-15.3); LYMPH % 21.3 % (8-40); MCH 27.5 pg (25.7-33.7); MCHC 32.6 g/dl (32.0-36.0); MEAN CELL VOLUME 84.5 fl (80-96); MEAN PLT VOLUME 6.6 fl (7.5-11.1); MONO % 5.8 % (3.8-10.2); NEUT % 70.4 % (42.8-82.8); PLATELET COUNT 200 10^3/uL (134-434); RBC 5.11 M/mm3 (3.60-5.2); WHITE BLOOD COUNT 7.1 K/mm3 (4.0-10.0)
[2024-02-24 14:38] LABS: CHLORIDE 103 mmol/L (98-107); SODIUM 139 mmol/L (136-145)
[2024-02-24 14:41] LABS: ALBUMIN 2.9 g/dl (3.4-5.0); BLOOD UREA NITROGEN 61.7 mg/dL (7-18); CALCIUM 9.2 mg/dL (8.5-10.1); CO2 28 mmol/L (21-32); GLUCOSE,RANDOM 87 mg/dL (74-106)
[2024-02-24 14:43] LABS: SGPT/ALT 22 U/L (13-61)
[2024-02-24 14:45] LABS: SGOT/AST 28 U/L (15-37)
[2024-02-24 14:46] LABS: BILIRUBIN,TOTAL 0.4 mg/dL (0.2-1); TOT PROT 6.8 g/dl (6.4-8.2)
[2024-02-24 14:47] LABS: ALK PHOS 158 U/L (45-117); ANION GAP 8 mmol/L (4-13); CREATININE 9.9 mg/dL (0.55-1.3); POTASSIUM 7.4 mmol/L (3.5-5.1)
[2024-02-24] MEDS ORDERED: CALCIUM GLUC IN NACL, ISO-OSM 1 GM/50 ML BAG IVPB ONE (16:23)
[2024-02-24] MEDS ORDERED: DEXTROSE 50%-WATER 25 GM/50 ML DISP.SYRIN ONE (16:23)
[2024-02-24] MEDS ORDERED: SODIUM BICARBONATE 8.4% 50 MEQ/50 ML DISP.SYRIN ONE (16:24)
[2024-02-24] MEDS: SODIUM BICARBONATE 8.4% 50 MEQ/50 ML VIAL IVPUSH ONE (16:35)
[2024-02-24] MEDS: INSULIN REGULAR HUMAN 100 UNITS/ML *VIAL IVPUSH ONE (16:35)
[2024-02-24] MEDS: DEXTROSE 50%-WATER - 25 GM/50 ML VIAL IVPUSH ONE (16:35)
[2024-02-24] MEDS: CALCIUM GLUCONATE 10% - 1,000 MG/10 ML VIAL IVPUSH ONE (16:36)
[2024-02-24] MEDS ORDERED: SODIUM CHLORIDE 250 ML IV PRN (18:26)
[2024-02-24 19:05] LABS: EPI CELLS >36 /uL (0-25.1); HYALINE CASTS 1 /uL (0-3.1); PH,URINE >= 9.0 (5.0-8.0); URINE APPEARANCE CLEAR; URINE BACTERIA 105 /uL (0-1359); URINE BILIRUBIN NEGATIVE (NEGATIVE); URINE COLOR ORANGE; URINE GLUCOSE (UA) NEGATIVE (NEGATIVE); URINE KETONE NEGATIVE (NEGATIVE); URINE LEUK ESTERASE NEGATIVE (NEGATIVE); URINE NITRITE NEGATIVE (NEGATIVE); URINE PROTEIN 3+ (NEGATIVE); URINE RBC 2199 /uL (0-23.9); URINE UROBILINOGEN 0.2 mg/dL (0.2-1.0)
[2024-02-24 20:16] LABS: URINE WBC 57.2 /uL (0-25.8)
[2024-02-24 20:45] LABS: CHLORIDE 101 mmol/L (98-107); SODIUM 140 mmol/L (136-145)
[2024-02-24 20:47] LABS: CALCIUM 9.7 mg/dL (8.5-10.1)
[2024-02-24 20:49] LABS: ALBUMIN 2.9 g/dl (3.4-5.0); BLOOD UREA NITROGEN 63.5 mg/dL (7-18); CO2 29 mmol/L (21-32); GLUCOSE,RANDOM 86 mg/dL (74-106)
[2024-02-24 20:52] LABS: SGOT/AST 29 U/L (15-37); SGPT/ALT 23 U/L (13-61)
[2024-02-24 20:54] LABS: ALK PHOS 162 U/L (45-117); ANION GAP 10 mmol/L (4-13); BILIRUBIN,TOTAL 0.4 mg/dL (0.2-1); CREATININE 10.1 mg/dL (0.55-1.3); POTASSIUM 6.1 mmol/L (3.5-5.1)
[2024-02-24] MEDS ORDERED: DOCUSATE SODIUM 100 MG CAPSULE (FP) PO PRN (23:05)
[2024-02-25] MEDS ORDERED: hydrALAZINE HCL 20 MG/ML VIAL IVPUSH PRN ×4 (01:31→18:42)
[2024-02-25] MEDS: hydrALAZINE HCL 20 MG/ML VIAL IVPUSH ONE ×3 (03:16→18:58)
[2024-02-25] MEDS: GABAPENTIN 300 MG CAPSULE PO SCH (07:05)
[2024-02-25] MEDS ORDERED: levETIRAcetam 500 MG TABLET (FP) PO SCH ×3 (08:00→10:00)
[2024-02-25] MEDS: FERROUS SO4 325 MG TABLET (FP) PO SCH (08:45)
[2024-02-25] MEDS: levETIRAcetam 500 MG TABLET (FP) PO SCH (08:45)
[2024-02-25] MEDS: APIXABAN 2.5 MG TABLET PO SCH (09:49)
[2024-02-25] MEDS: CITALOPRAM HYDROBROMIDE 10 MG TABLET PO SCH (09:49)
[2024-02-25] MEDS: METOPROLOL TARTRATE 25 MG TABLET (FP) PO SCH (09:49)
[2024-02-25] MEDS: FAMOTIDINE 40 MG TABLET PO SCH (09:50)
[2024-02-25] MEDS: HEPARIN NA (PORCINE) 5,000 UNITS/ML 1ML VIAL SQ SCH (09:50)
[2024-02-25 10:25] LABS: BASO % 0.6 % (0-2.0); EOS % 2.2 % (0-4.5); HEMATOCRIT 41.2 % (32.4-45.2); HEMOGLOBIN 13.6 GM/dL (10.7-15.3); LYMPH % 16.7 % (8-40); MCH 27.9 pg (25.7-33.7); MCHC 33.1 g/dl (32.0-36.0); MEAN CELL VOLUME 84.4 fl (80-96); MEAN PLT VOLUME 6.6 fl (7.5-11.1); MONO % 4.7 % (3.8-10.2); NEUT % 75.8 % (42.8-82.8); PLATELET COUNT 210 10^3/uL (134-434); RBC 4.88 M/mm3 (3.60-5.2); RDW 18.9 % (11.6-15.6); WHITE BLOOD COUNT 6.3 K/mm3 (4.0-10.0)
[2024-02-25 10:43] LABS: CHLORIDE 102 mmol/L (98-107); POTASSIUM 5.6 mmol/L (3.5-5.1); SODIUM 141 mmol/L (136-145)
[2024-02-25 10:51] LABS: ALBUMIN 2.9 g/dl (3.4-5.0); ANION GAP 8 mmol/L (4-13); BLOOD UREA NITROGEN 40.8 mg/dL (7-18); CALCIUM 9.5 mg/dL (8.5-10.1); CO2 31 mmol/L (21-32); GLUCOSE,RANDOM 89 mg/dL (74-106)
[2024-02-25 10:53] LABS: MAGNESIUM 2.3 mg/dL (1.8-2.4)
[2024-02-25 10:54] LABS: SGPT/ALT 21 U/L (13-61)
[2024-02-25 10:56] LABS: PHOSPHOROUS 3.9 mg/dL (2.5-4.9); SGOT/AST 25 U/L (15-37)
[2024-02-25 10:57] LABS: TOT PROT 6.9 g/dl (6.4-8.2)
[2024-02-25 10:58] LABS: ALK PHOS 161 U/L (45-117); BILIRUBIN,TOTAL 0.4 mg/dL (0.2-1)
[2024-02-25] MEDS: levETIRAcetam 500 MG/5 ML INJECTION VIAL IVPB SCH (11:04)
[2024-02-25] MEDS ORDERED: SODIUM CHLORIDE 250 ML IV PRN ×2 (11:20→19:24)
[2024-02-25] MEDS: SODIUM ZIRCONIUM CYCLOSILICATE (LOKELMA) 5 GM PACKET PO SCH (12:55)
[2024-02-25] MEDS: NIFEdipine E.R. 30 MG TABLET PO SCH (18:59)
[2024-02-25] MEDS: hydrALAZINE HCL 20 MG/ML VIAL IM ONE (19:00)
[2024-02-25] MEDS ORDERED: SENNOSIDES 8.6MG TABLET (FP) PO SCH (22:00)
[2024-02-25] MEDS: ATORVASTATIN CA 20 MG TABLET (FP) PO SCH (22:46)
[2024-02-25] MEDS: MELATONIN 1 MG TABLET PO SCH (22:47)
[2024-02-26] MEDS: ACETAMINOPHEN 1000 MG/100 ML BAG IVPB ONE (09:30)
[2024-02-26 09:57] LABS: POTASSIUM 5.2 mmol/L (3.5-5.1)
[2024-02-26 10:00] LABS: CALCIUM 9.6 mg/dL (8.5-10.1)
[2024-02-26 10:01] LABS: ALBUMIN 2.9 g/dl (3.4-5.0); MAGNESIUM 2.2 mg/dL (1.8-2.4)
[2024-02-26 10:04] LABS: CREATININE 6.5 mg/dL (0.55-1.3); PHOSPHOROUS 4.5 mg/dL (2.5-4.9)
[2024-02-26 10:06] LABS: BILIRUBIN,TOTAL 0.5 mg/dL (0.2-1); TOT PROT 6.9 g/dl (6.4-8.2)
[2024-02-26] MEDS ORDERED: SODIUM CHLORIDE 250 ML IV PRN (11:57)
[2024-02-26] MEDS: FAMOTIDINE 20 MG TABLET PO SCH (12:39)
[2024-02-26] MEDS: SODIUM ZIRCONIUM CYCLOSILICATE (LOKELMA) 5 GM PACKET PO SCH (12:41)
[2024-02-26 14:08] LABS: INR 0.96 (0.83-1.09); PROTHROMBIN TIME (PATIENT) 11.1 SEC (9.7-13.0)
[2024-02-26] MEDS: METOPROLOL TARTRATE 5 MG/5 ML VIAL IVPUSH PRN (14:16)
[2024-02-26] MEDS: HEPARIN NA (PORCINE) 5,000 UNITS/ML 1ML VIAL SQ SCH (16:14)
[2024-02-27 07:43] LABS: CHLORIDE 100 mmol/L (98-107); SODIUM 138 mmol/L (136-145)
[2024-02-27 07:51] LABS: ALBUMIN 2.8 g/dl (3.4-5.0); CALCIUM 9.1 mg/dL (8.5-10.1); CO2 29 mmol/L (21-32); GLUCOSE,RANDOM 78 mg/dL (74-106); MAGNESIUM 2.4 mg/dL (1.8-2.4)
[2024-02-27 07:52] LABS: BLOOD UREA NITROGEN 37.2 mg/dL (7-18)
[2024-02-27 07:54] LABS: SGOT/AST 50 U/L (15-37); SGPT/ALT 22 U/L (13-61)
[2024-02-27 07:55] LABS: BILIRUBIN,TOTAL 0.5 mg/dL (0.2-1); PHOSPHOROUS 5.7 mg/dL (2.5-4.9)
[2024-02-27 07:57] LABS: ALK PHOS 139 U/L (45-117)
[2024-02-27 07:58] LABS: ANION GAP 8 mmol/L (4-13); CREATININE 7.9 mg/dL (0.55-1.3); POTASSIUM 6.3 mmol/L (3.5-5.1); TOT PROT 6.8 g/dl (6.4-8.2)
[2024-02-27 08:09] LABS: HEMATOCRIT 36.9 % (32.4-45.2); HEMOGLOBIN 12.4 GM/dL (10.7-15.3); MCH 28.3 pg (25.7-33.7); MCHC 33.6 g/dl (32.0-36.0); MEAN CELL VOLUME 84.2 fl (80-96); MEAN PLT VOLUME 7.6 fl (7.5-11.1); PLATELET COUNT 224 10^3/uL (134-434); RBC 4.38 M/mm3 (3.60-5.2); RDW 18.5 % (11.6-15.6)
[2024-02-27 08:27] LABS: WHITE BLOOD COUNT 8.1 K/mm3 (4.0-10.0)
[2024-02-27 09:49] LABS: ANISOCYTOSIS 0; MACROCYTOSIS 0; OVALOCYTE 1+
[2024-02-27] MEDS: CALCIUM GLUCONATE IN NACL 1 GM/50 ML BAG IVPB ONE (10:12)
[2024-02-27] MEDS: amLODIPine BESYLATE 5 MG TABLET (FP) PO SCH (10:13)
[2024-02-27] MEDS ORDERED: SODIUM CHLORIDE 250 ML IV PRN (11:12)
[2024-02-27] MEDS: SODIUM ZIRCONIUM CYCLOSILICATE (LOKELMA) 5 GM PACKET PO SCH (16:21)
[2024-02-27] MEDS: APIXABAN 2.5 MG TABLET PO SCH (21:19)
[2024-02-28] MEDS: amLODIPine BESYLATE 5 MG TABLET (FP) PO ONE (12:12)
[2024-02-28] MEDS ORDERED: amLODIPine BESYLATE 5 MG TABLET (FP) PO ONE (15:14)
[2024-02-28 15:24] LABS: HEMATOCRIT 36.4 % (32.4-45.2); MCH 27.8 pg (25.7-33.7); MCHC 32.9 g/dl (32.0-36.0); MEAN CELL VOLUME 84.3 fl (80-96); MEAN PLT VOLUME 7.2 fl (7.5-11.1); PLATELET COUNT 215 10^3/uL (134-434); RBC 4.31 M/mm3 (3.60-5.2); RDW 18.4 % (11.6-15.6); WHITE BLOOD COUNT 5.3 K/mm3 (4.0-10.0)
[2024-02-28 15:52] LABS: POTASSIUM 4.3 mmol/L (3.5-5.1)
[2024-02-28 15:55] LABS: ALBUMIN 2.7 g/dl (3.4-5.0); MAGNESIUM 2.2 mg/dL (1.8-2.4)
[2024-02-28 15:57] LABS: CREATININE 6.5 mg/dL (0.55-1.3); PHOSPHOROUS 4.8 mg/dL (2.5-4.9)
[2024-02-28 16:00] LABS: BILIRUBIN,TOTAL 0.4 mg/dL (0.2-1); TOT PROT 6.1 g/dl (6.4-8.2)
[2024-02-28 16:05] LABS: BLOOD UREA NITROGEN 26.3 mg/dL (7-18)
[2024-02-28] MEDS: levETIRAcetam 500 MG TABLET (FP) PO SCH (23:47)
[2024-02-29] MEDS ORDERED: levETIRAcetam 500 MG TABLET (FP) PO SCH (08:31)
[2024-02-29] MEDS: amLODIPine BESYLATE 10 MG TABLET (FP) PO SCH (09:33)
[2024-02-29 11:24] LABS: BASO % 0.9 % (0-2.0); EOS % 3.1 % (0-4.5); HEMATOCRIT 38.2 % (32.4-45.2); HEMOGLOBIN 12.4 GM/dL (10.7-15.3); LYMPH % 19.7 % (8-40); MCH 27.9 pg (25.7-33.7); MCHC 32.4 g/dl (32.0-36.0); MEAN CELL VOLUME 86.1 fl (80-96); MONO % 6.9 % (3.8-10.2); NEUT % 69.4 % (42.8-82.8); PLATELET COUNT 204 10^3/uL (134-434); RBC 4.44 M/mm3 (3.60-5.2); RDW 18.5 % (11.6-15.6)
[2024-02-29 15:21] VITALS: BMI 44.1
[2024-02-29 15:45] VITALS: BP 128/85; PULSE 95; RESP 18; TEMP 98.4
== END 2024-02-29 19:22 | DRG 100 ==
LOC: JER 12:08 → JERBED 19:21 → J4W 02-25 02:39 → UNDODISIN 02-25 19:16
PROVIDERS: ADMIT Internal Medicine; ATTEND Internal Medicine
PROC: 5A1D70Z Performance of Urinary Filtration, Intermittent, Less than 6 Hours Per Day (ICD-10-PCS; principal; 2024-02-24)
PROC: 5A1D70Z Performance of Urinary Filtration, Intermittent, Less than 6 Hours Per Day (ICD-10-PCS; 2024-02-25)
PROC: 5A1D70Z Performance of Urinary Filtration, Intermittent, Less than 6 Hours Per Day (ICD-10-PCS; 2024-02-27)
PROC: 5A1D70Z Performance of Urinary Filtration, Intermittent, Less than 6 Hours Per Day (ICD-10-PCS; 2024-02-28)
DX: G40.909 Epilepsy, unspecified, not intractable, without status epilepticus (principal); G93.41 Metabolic encephalopathy; N18.6 End stage renal disease; I13.2 Hypertensive heart and chronic kidney disease with heart failure and with stage 5 chronic kidney disease, or end stage renal disease; I50.32 Chronic diastolic (congestive) heart failure; L03.115 Cellulitis of right lower limb; I16.1 Hypertensive emergency; Z68.41 Body mass index [BMI] 40.0-44.9, adult; E87.0 Hyperosmolality and hypernatremia; K21.9 Gastro-esophageal reflux disease without esophagitis; K59.00 Constipation, unspecified; D50.9 Iron deficiency anemia, unspecified; Z99.2 Dependence on renal dialysis; I48.0 Paroxysmal atrial fibrillation; E87.5 Hyperkalemia; D63.1 Anemia in chronic kidney disease; E83.39 Other disorders of phosphorus metabolism; R80.9 Proteinuria, unspecified; E87.70 Fluid overload, unspecified; E87.8 Other disorders of electrolyte and fluid balance, not elsewhere classified; E66.01 Morbid (severe) obesity due to excess calories; Z86.73 Personal history of transient ischemic attack (TIA), and cerebral infarction without residual deficits
CPT/HCPCS: 36415; 70450-TC; 70551-TC; 71045-TC-FY; 80048; 80053; 80177; 81003; 82962; 83605; 83735; 84100; 84484; 85025; 85027; 85610; 86803; 86850; 86900; 86901; 87340; 87522; 87635; 93005; 93010; 99285-25; J0131; J1644

== ENCOUNTER 2024-08-18 09:27 | Inpatient (IN) | payer OTHER ==
[2024-08-18 10:17] VITALS: BMI 33.3
[2024-08-18 11:52] LABS: HEMATOCRIT 33.9 % (32.4-45.2); MCH 27.3 pg (25.7-33.7); MCHC 32.4 g/dl (32.0-36.0); MEAN CELL VOLUME 84.4 fl (80-96); MEAN PLT VOLUME 6.3 fl (7.5-11.1); PLATELET COUNT 272 10^3/uL (134-434); RBC 4.01 M/mm3 (3.60-5.2); RDW 18.2 % (11.6-15.6); WHITE BLOOD COUNT 5.7 K/mm3 (4.0-10.0)
[2024-08-18 11:59] LABS: INR 1.04 (0.83-1.09); PROTHROMBIN TIME (PATIENT) 11.9 SEC (9.7-13.0)
[2024-08-18 12:06] LABS: CHLORIDE 95 mmol/L (98-107); SODIUM 132 mmol/L (136-145)
[2024-08-18 12:08] LABS: CALCIUM 9.4 mg/dL (8.5-10.1)
[2024-08-18 12:09] LABS: ALBUMIN 3.3 g/dl (3.4-5.0); BLOOD UREA NITROGEN 46.5 mg/dL (7-18); CO2 32 mmol/L (21-32); GLUCOSE,RANDOM 76 mg/dL (74-106)
[2024-08-18 12:12] LABS: SGOT/AST 26 U/L (15-37); SGPT/ALT 20 U/L (13-61)
[2024-08-18 12:14] LABS: BILIRUBIN,TOTAL 0.4 mg/dL (0.2-1); TOT PROT 7.6 g/dl (6.4-8.2)
[2024-08-18 12:15] LABS: ALK PHOS 154 U/L (45-117); ANION GAP 6 mmol/L (4-13); CREATININE 8.7 mg/dL (0.55-1.3)
[2024-08-18] MEDS ORDERED: SODIUM BICARBONATE 8.4% 50 MEQ/50 ML DISP.SYRIN ONE (12:32)
[2024-08-18] MEDS ORDERED: INSULIN ASPART SLIDING SCALE (NOVOLOG) 1 VIAL SQ ONE (12:32)
[2024-08-18] MEDS ORDERED: CALCIUM GLUC IN NACL, ISO-OSM 1 GM/50 ML BAG IVPB ONE (12:32)
[2024-08-18] MEDS: INSULIN REGULAR HUMAN 100 UNITS/ML *VIAL IVPUSH ONE (12:35)
[2024-08-18] MEDS: CALCIUM GLUCONATE 10% - 1,000 MG/10 ML VIAL IVPUSH ONE (12:35)
[2024-08-18] MEDS ORDERED: DOCUSATE SODIUM 100 MG CAPSULE (FP) PO PRN (13:22)
[2024-08-18] MEDS ORDERED: LIDOCAINE HCL 1%, 10 MG/ML (20ML VIAL) ONE (13:32)
[2024-08-18] MEDS ORDERED: SODIUM BICARBONATE 8.4% - 150 MEQ in DEXTROSE 5%-WATER - 950 ML IVPB SCH (14:00)
[2024-08-18] MEDS ORDERED: SODIUM CHLORIDE 250 ML IV PRN (14:08)
[2024-08-18] MEDS: SODIUM BICARBONATE 8.4% 50 MEQ/50 ML DISP.SYRIN IVPUSH ONE (15:05)
[2024-08-18] MEDS: DEXTROSE 50%-WATER 25 GM/50 ML DISP.SYRIN IVPUSH ONE (15:05)
[2024-08-18] MEDS ORDERED: SODIUM ZIRCONIUM CYCLOSILICATE (LOKELMA) 10 GM PACKET ONE (15:24)
[2024-08-18] MEDS ORDERED: GABAPENTIN 300 MG CAPSULE ONE (15:24)
[2024-08-18] MEDS: SODIUM ZIRCONIUM CYCLOSILICATE (LOKELMA) 5 GM PACKET PO SCH (15:30)
[2024-08-18] MEDS: GABAPENTIN 300 MG CAPSULE PO SCH (15:30)
[2024-08-18] MEDS ORDERED: ACETAMINOPHEN INJECTION 100 ML ONE (15:39)
[2024-08-18] MEDS: ACETAMINOPHEN 1000 MG/100 ML BAG IVPB ONE (15:49)
[2024-08-18] MEDS: CALCIUM ACETATE 667 MG CAPSULE (FP) PO SCH (22:50)
[2024-08-18] MEDS: METOPROLOL TARTRATE 25 MG TABLET (FP) PO SCH (22:57)
[2024-08-18] MEDS: levETIRAcetam 500 MG TABLET (FP) PO SCH (22:58)
[2024-08-18] MEDS: ATORVASTATIN CA 20 MG TABLET (FP) PO SCH (22:58)
[2024-08-19] MEDS: ACETAMINOPHEN 325 MG TABLET (FP) PO PRN (00:24)
[2024-08-19] MEDS ORDERED: LIDOCAINE HCL 1%, 10 MG/ML (20ML VIAL) ONE (07:16)
[2024-08-19] MEDS ORDERED: ONDANSETRON 4 MG/2 ML VIAL IVPUSH PRN ×2 (07:40→08:44)
[2024-08-19] MEDS ORDERED: SODIUM CHLORIDE 1,000 ML IV SCH (07:45)
[2024-08-19] MEDS ORDERED: MIDAZOLAM HCL 2 MG/2 ML SINGLE DOSE VIAL ONE ×2 (07:53→08:01)
[2024-08-19] MEDS: ceFAZolin 2 GRAM PREMIX BAG IVPB ONE (07:55)
[2024-08-19] MEDS: LIDOCAINE HCL 1%, 10 MG/ML (20ML VIAL) NR ONE ×3 (08:12)
[2024-08-19] MEDS ORDERED: SODIUM CHLORIDE 250 ML IV PRN ×2 (08:44→18:00)
[2024-08-19] MEDS ORDERED: DOCUSATE SODIUM 100 MG CAPSULE (FP) PO PRN (08:44)
[2024-08-19] MEDS: SODIUM CHLORIDE 1,000 ML IV SCH (09:45)
[2024-08-19] MEDS ORDERED: FAMOTIDINE 20 MG TABLET PO SCH ×2 (10:00)
[2024-08-19] MEDS ORDERED: amLODIPine BESYLATE 10 MG TABLET (FP) PO SCH (10:00)
[2024-08-19] MEDS: FAMOTIDINE 20 MG TABLET PO SCH (10:33)
[2024-08-19] MEDS: METOPROLOL TARTRATE 25 MG TABLET (FP) PO SCH (10:34)
[2024-08-19] MEDS: levETIRAcetam 500 MG TABLET (FP) PO SCH (10:35)
[2024-08-19] MEDS: SODIUM ZIRCONIUM CYCLOSILICATE (LOKELMA) 5 GM PACKET PO SCH (10:35)
[2024-08-19] MEDS: amLODIPine BESYLATE 10 MG TABLET (FP) PO SCH (10:35)
[2024-08-19 12:18] LABS: BASO % 1.1 % (0-2.0); EOS % 2.9 % (0-4.5); HEMATOCRIT 31.7 % (32.4-45.2); HEMOGLOBIN 10.4 GM/dL (10.7-15.3); LYMPH % 12.5 % (8-40); MCH 27.8 pg (25.7-33.7); MCHC 32.9 g/dl (32.0-36.0); MEAN CELL VOLUME 84.6 fl (80-96); MONO % 4.4 % (3.8-10.2); NEUT % 79.1 % (42.8-82.8); PLATELET COUNT 220 10^3/uL (134-434); RBC 3.74 M/mm3 (3.60-5.2); RDW 17.5 % (11.6-15.6); WHITE BLOOD COUNT 5.7 K/mm3 (4.0-10.0)
[2024-08-19 12:36] LABS: CHLORIDE 100 mmol/L (98-107); POTASSIUM 5.4 mmol/L (3.5-5.1); SODIUM 137 mmol/L (136-145)
[2024-08-19 12:41] LABS: CALCIUM 8.8 mg/dL (8.5-10.1)
[2024-08-19 12:42] LABS: ALBUMIN 2.8 g/dl (3.4-5.0); ANION GAP 8 mmol/L (4-13); BLOOD UREA NITROGEN 45.2 mg/dL (7-18); CO2 29 mmol/L (21-32); GLUCOSE,RANDOM 108 mg/dL (74-106)
[2024-08-19 12:45] LABS: SGOT/AST 29 U/L (15-37); SGPT/ALT 17 U/L (13-61)
[2024-08-19 12:46] LABS: BILIRUBIN,TOTAL 0.4 mg/dL (0.2-1); TOT PROT 6.7 g/dl (6.4-8.2)
[2024-08-19 12:48] LABS: ALK PHOS 130 U/L (45-117)
[2024-08-19] MEDS: CALCIUM ACETATE 667 MG CAPSULE (FP) PO SCH (12:54)
[2024-08-19] MEDS: GABAPENTIN 300 MG CAPSULE PO SCH (13:29)
[2024-08-19] MEDS: APIXABAN 2.5 MG TABLET PO SCH (21:48)
[2024-08-19] MEDS: ATORVASTATIN CA 20 MG TABLET (FP) PO SCH (21:48)
[2024-08-20 10:19] VITALS: RESP 18
[2024-08-20] MEDS: CITALOPRAM HYDROBROMIDE 10 MG TABLET PO SCH (10:25)
[2024-08-20] MEDS: ACETAMINOPHEN 325 MG TABLET (FP) PO PRN (13:33)
[2024-08-20] MEDS: HEPARIN NA (PORCINE) 5,000 UNITS/ML 1ML VIAL IVPUSH ONE (17:00)
[2024-08-20] MEDS: EPOETIN ALFA-EPBX 10,000 UNIT/ML VIAL IVPUSH ONE (18:00)
[2024-08-20] MEDS ORDERED: MELATONIN 5 MG TABLETS PO PRN (23:27)
[2024-08-21 09:12] VITALS: TEMP 98.6
[2024-08-21 13:34] VITALS: BP 119/80; PULSE 73
== END 2024-08-21 14:09 | DRG 674 ==
LOC: JER 09:27 → JERBED 12:21 → J5S 17:03
PROVIDERS: ADMIT Internal Medicine
PROC: 05HM33Z Insertion of Infusion Device into Right Internal Jugular Vein, Percutaneous Approach (ICD-10-PCS; 2024-08-18)
PROC: B543ZZA Ultrasonography of Right Jugular Veins, Guidance (ICD-10-PCS; 2024-08-18)
PROC: 05H533Z Insertion of Infusion Device into Right Subclavian Vein, Percutaneous Approach (ICD-10-PCS; 2024-08-19)
PROC: 0JH60XZ Insertion of Tunneled Vascular Access Device into Chest Subcutaneous Tissue and Fascia, Open Approach (ICD-10-PCS; principal; 2024-08-19 07:30)
DX: T82.49XA Other complication of vascular dialysis catheter, initial encounter (principal); I13.2 Hypertensive heart and chronic kidney disease with heart failure and with stage 5 chronic kidney disease, or end stage renal disease; I50.32 Chronic diastolic (congestive) heart failure; N18.6 End stage renal disease; I48.91 Unspecified atrial fibrillation; G40.909 Epilepsy, unspecified, not intractable, without status epilepticus; Z99.2 Dependence on renal dialysis; B19.20 Unspecified viral hepatitis C without hepatic coma; Z68.33 Body mass index [BMI] 33.0-33.9, adult; E78.5 Hyperlipidemia, unspecified; E66.9 Obesity, unspecified; E87.5 Hyperkalemia; E87.70 Fluid overload, unspecified; D64.9 Anemia, unspecified; Y83.9 Surgical procedure, unspecified as the cause of abnormal reaction of the patient, or of later complication, without mention of misadventure at the time of the procedure; F17.210 Nicotine dependence, cigarettes, uncomplicated
CPT/HCPCS: 36415; 71045-TC-FY; 76000-TC-FY; 80048; 80053; 82962; 85025; 85027; 85610; 85730; 86705; 86803; 86850; 86900; 86901; 87340; 87522; 93005; 93010; 94760; 99285-25; C1750; J0131; J1644; Q5106